=== PATIENT | male | born 1945 | race Caucasian/White ===

== ENCOUNTER 2023-03-06 13:56 | Inpatient (IN) ==
--- NOTE | 2023-03-06 14:05 | ED Triage Note ---
Date of Service March 06, 2023 History of Present Illness This patient was briefly evaluated while in triage. An abbreviated physical exam was performed. This patient is a 77-year-old Male who presents to the ED for evaluation of infections in both of his big toes. Patient states he can see the bone, the toe is black and "about falling off." He has been on two rounds of antibiotics with no improvement. Symptoms worsening over the past 2 weeks. He was seeing cardiology today about his heart and they apparently smelled his toes and told him to come in. Physical Exam VITALS: Vitals are noted on the nurse's note and reviewed by myself. GENERAL: This is a 77-year-old male, in no acute distress, well-developed well- nourished. SKIN: There is some redness of the anterior left howe. HEART: Regular rate and rhythm, no murmurs, gallops or rubs. LUNGS: Clear to auscultation throughout. MUSCULOSKELETAL: Postop shoes in place to bilateral feet. NEURO: Patient was alert and oriented to person place and time. Initial orders for labs and / or imaging were placed and patient was placed in the waiting area until a bed is available. Please see further documentation for the full ED course. MDM / Impression Impression Impression: Diabetic ulcer of left great toe, Osteomyelitis, Diabetic ulcer of right great toe, PAD (peripheral artery disease)
--- NOTE | 2023-03-06 14:51 | XRay Report ---
RIGHT FIRST TOE 3 VIEWS CLINICAL HISTORY: First toe infection. FINDINGS: 3 views of the right first toe are compared to study dated 02/20/2023. The skeletal structur es are osteopenic. No fracture is seen. Erosive change is seen along the medial head of the first pro ximal phalanx. This is suspicious for osteoarthritis. No additional foci of bony erosion are identifi ed. Mild degenerative change is noted in the first metatarsophalangeal and interphalangeal joints. So ft tissue edema is present in the first toe. There is atherosclerotic calcification of the regional a rteries. IMPRESSION: Erosive change in the medial head of the first proximal phalanx is highly suspicious for osteomyelitis. Correlate clinically. Electronically signed by: Abner Boyce M.D. 03/06/2023 2:50 PM
--- NOTE | 2023-03-06 14:53 | XRay Report ---
XR toe(s) LT min 2V CLINICAL HISTORY: Bilateral great toe infection. Assess for osteomyelitis. COMPARISON STUDY: Left first toe 02/16/2023. FINDINGS: Small foci of soft tissue gas identified within the left first toe. Destructive change seen within the lateral aspect of the distal phalanx of the left first toe. This is consistent with an os teomyelitis. No acute fracture or dislocation. No radiopaque foreign bodies. There is also cortical d estruction along the lateral aspect of the proximal phalanx of the first toe consistent with an addit ional site of osteomyelitis. IMPRESSION: 1. Areas of cortical destruction involving the proximal and distal phalanx of the left first toe cons istent with osteomyelitis. 2. Small foci of soft tissue gas seen throughout the majority of the left first toe. This is concerni ng for a gas-forming organism. ACT 112: Negative or not required by law. Electronically signed by: Juan Soto M.D. 03/06/2023 2:52 PM
[2023-03-06 17:04] LABS: Basophils # (auto) 0.05 K/uL (0-0.2); Basophils % (auto) 0.6 %; Eosinophils # (auto) 0.35 K/uL (0-0.50); Eosinophils % (auto) 3.9 %; Hematocrit (blood only) 37.5 % (42.0-52.0); Hemoglobin 12.3 g/dl (14.0-18.0); Immature Granulocytes # (auto) 0.03 K/uL (0.01-0.20); Immature Granulocytes % (auto) 0.3 %; Lymphocytes # (auto) 1.91 K/uL (1.2-3.4); Lymphocytes % (auto) 21.4 %; Mean Corpuscular Hemoglobin 28.3 pg (25.0-34.0); Mean Corpuscular Hgb Conc 32.8 g/dL (32.0-36.0); Mean Corpuscular Volume 86.4 fL (80.0-100.0); Mean Platelet Volume 9.2 fL (9.4-12.4); Monocytes # (auto) 0.67 K/uL (0.11-0.59); Monocytes % (auto) 7.5 %; Neutrophils # (auto) 5.92 K/uL (1.40-6.50); Neutrophils % (auto) 66.3 %; Platelet Count 268 K/uL (130-400); RDW Coefficient of Variation 15.4 % (11.5-14.5); RDW Standard Deviation 48.5 fL (36.4-46.3); Red Blood Count 4.34 M/uL (4.70-6.10); White Blood Count 8.93 K/ul (4.8-10.8)
--- NOTE | 2023-03-06 17:05 | Emergency Department Note ---
Impression & Plan Diabetic ulcer of left great toe, Osteomyelitis, Diabetic ulcer of right great toe, PAD (peripheral artery disease) ED Provider Note Provider: Jaswant Rios MD DATE OF SERVICE: 03/06/2023 CHIEF COMPLAINT: Toe infection HISTORY OF PRESENT ILLNESS: Patient is a 77-year-old gentleman history of type 2 diabetes, peripheral artery disease, long-term anticoagulation with warfarin presenting here today complaining of redness and foul smell to his left toes. Issues with the right toes as well. Has known issues with both toes and has recently seen podiatry and orthopedics. Undergoing outpatient evaluation for amputation due to concerns for osteomyelitis. Denies fevers. Denies significan t systemic weakness. Does have some pain up in the left leg. Patient's states that has outpatient vascular follow-up in several weeks as they wanted to optimize his PVD before surgery. Now with worsening redness swelling and foul odor to left foot. PAST MEDICAL HISTORY: As noted above MEDICATIONS: Reviewed home medication SOCIAL HISTORY: , chews tobacco PHYSICAL EXAM: GENERAL: alert and oriented in no acute distress on stretcher Head: normocephalic and atraumatic EYES: No injection, discharge or icterus. NECK: Trachea midline. ENT: Mucous membranes pink and moist. Poor dentition LUNGS: Airway patent. No retractions or tachypnea HEART: Regular rate and rhythm. No chest wall tenderness ABDOMEN: Soft and non-tender, without guarding or rebound. SKIN: Acyanotic, warm, dry EXTREMITIES: Patient with some mild swelling of the left lower extremity with erythema extending to the mid calf and slightly more proximal. No crepitus. Large wound with granulation tissue and green quality to the anterior left great toe. Slight approximate 2 cm ulceration on the anterior aspect of the right great toe but only into the epidermis. Only a faint left DP pulse appreciated. NEUROLOGICAL: No aphasia, facial droop, or slurred speech. Moves bilateral toes and feels gross sensation. Patient's laboratory studies and imaging reviewed. Differential includes Cellulitis, abscess, MRSA infection, DVT, necrotizing fasciitis, dermatitis, drug eruption, allergic reaction, as well as other pathologies. IMPRESSION/MEDICAL DECISION MAKING: Seen with resident physician. Reviewed recent medical record. Referred from PCPs office today requesting admission given worsening wounds. While the patient would benefit from peripheral vascular optimization, given the signs of worsening infection have concerns for this diabetic foot wound. No significant for cytosis and not septic at the CRP is elevated. X-rays again concerning today. Discussed with pharmacist. Antibiotics given. Does not appear to be necrotizing fasciitis based on clinical exam. Does have some cellulitis up in the left leg. Wound cultures obtained by the resident from both toes. Did clean both toes with iodine and then cleanse with water afterwards. [facility] these [facility] as an [facility] of these foot wounds. Likely require eventual surgical care. DIAGNOSIS: Diabetic foot wounds, left leg cellulitis, toe osteomyelitis DISPOSITION: Hospitalist will evaluate Patient was agreeable with this plan. Past Med/Surg History Medical History (Updated 03/06/23 @ 19:07 by Herminia Florentino PA-C) Anxiety Apical mural thrombus History of- on chronic Coumadin BPH (benign prostatic hyperplasia) CAD (coronary artery disease) S/p 3 vessel bypass 1997 Chronic systolic CHF (congestive heart failure) Severe LV dysfunction Depression Diabetes mellitus, type 2 Hyperlipidemia Hypertension ICD (implantable cardioverter-defibrillator) in place Biventricular ICD upgrade 08/2020 [employer]- h/o ICD discharge 10/2020 x 2 per 01/2021 ICD check Ischemic cardiomyopathy EF= 13% on 10/2020 stress test LBBB (left bundle branch block) Follows with cardio Myocardial Infarction x3--last 1997--follows with Dr. Bang Mcginnis On anticoagulant therapy warfarin daily Paroxysmal atrial flutter Sleep apnea cpap Surgical History History of appendectomy History of bilateral cataract extraction History of cardiac cath x1--1997 @ [facility] [place]--no stents, had CABG History of carpal tunnel surgery of right wrist History of colonoscopy History of implantable cardioverter-defibrillator (ICD) placement inserted 01/2007, replaced 02/2016, upgraded to BiV ICD on 09/19/20--[employer] History of surgery left leg vein removed for bypass History of tonsillectomy and adenoidectomy S/P triple vessel bypass @ [facility] [place] 1997 Family History Other No family history of adverse response to anesthesia Social History Smoking Status: Light tobacco smoker Tobacco Type: Smokeless Tobacco (Dip or Chew) Second Hand Exposure: Yes ( smokes); Hx Alcohol Use: Yes Alcohol type: beer Hx Substance Use: No Preferred Language: Citizen Of [place] Communication Ability: Effective Audit Analyst Required: No Beliefs That Will Affect Care: None Current Living Situation: Spouse Feels Safe at Home: Yes Assistive Devices: CPAP Allergies Allergies Allergy/AdvReac Type Severity Reaction Status Date / Time No Known Allergies Allergy Unknown Verified 03/06/23 17:52 Home Meds Home Medications Medication Instructions Recorded Confirmed atorvastatin 80 mg tablet 80 mg PO HS 09/17/20 03/06/23 finasteride 5 mg tablet 5 mg PO HS 09/17/20 03/06/23 furosemide 40 mg tablet (Lasix) 40 mg PO BID 09/17/20 03/06/23 insulin human U-100 NPH-regulr 20 unit subcut QAM 09/17/20 03/06/23 70-30 mix 100 unit/mL subcutaneous susp (Novolin 70/30 U-100 Insulin) lisinopril 2.5 mg tablet 2.5 mg PO QAM 09/17/20 03/06/23 metformin 1,000 mg tablet 1,000 mg PO BID 09/17/20 03/06/23 metoprolol succinate 50 mg 25 mg PO QAM 09/17/20 03/06/23 tablet,extended release 24 hr nitroglycerin 0.4 mg sublingual 0.4 mg sublingual UD PRN Angina 09/17/20 03/06/23 tablet omega-3 fatty acids 1,000 mg PO BID 09/17/20 03/06/23 sertraline 25 mg tablet 25 mg PO QAM 09/17/20 03/06/23 sertraline 50 mg tablet 50 mg PO QAM 09/17/20 03/06/23 vit C 250 mg-vit E 90 mg-zinc 40 1 tab PO BID 09/17/20 03/06/23 mg-copper 1 [id number] capsule (PreserVision AREDS-2) warfarin 10 mg tablet 10 mg PO DIRECTED 09/17/20 03/06/23 amiodarone 200 mg tablet 200 mg PO QAM 02/28/21 03/06/23 digoxin 125 mcg (0.125 mg) tablet 125 mcg PO PM 02/28/21 03/06/23 aspirin 81 mg chewable tablet 81 mg PO PM 03/06/23 03/06/23 empagliflozin 10 mg tablet 10 mg PO QAM 03/06/23 03/06/23 (Jardiance) semaglutide 1 mg/dose (4 mg/3 mL) 1 mg subcut WE 03/06/23 03/06/23 subcutaneous pen injector (Ozempic) terazosin 2 mg capsule 2 mg PO DAILY 03/06/23 03/06/23 tramadol 50 mg tablet 50 mg PO Q8 PRN Pain 03/06/23 03/06/23 trazodone 50 mg tablet 50 mg PO HS 03/06/23 03/06/23 Results & Data (ED) Vital Signs Vital Signs - 24 hr 03/06/23 13:58 03/06/23 17:14 Temperature 36.6 C 37.0 C Temperature Source Temporal Artery Scan Oral Pulse Rate 81 Pulse Rate [Right Finger] 71 Respiratory Rate 20 18 Respiratory Effort / Characteristics Non-Labored Spontaneous Non-Labored Spontaneous Respiratory Depth Normal Normal Respiratory Pattern Regular Regular Blood Pressure 117/63 Blood Pressure [Right Arm] 142/84 H Blood Pressure Mean 81 Blood Pressure Mean [Right Arm] 103 Blood Pressure Position Sitting Blood Pressure Position [Right Arm] Lying Pulse Oximetry 100 97 Oxygen Delivery Method Room Air Sepsis Recent Fever Within 48 Hours No Sepsis New/Unexplained Change in Mental Status N/A Sepsis Action Taken by Nursing No Action Required Laboratory Data 03/06/23 16:17 03/06/23 16:17 Lab Results 03/06/23 03/06/23 03/06/23 Range/Units 16:17 16:17 16:28 WBC 8.93 (4.8-10.8) K/ul RBC 4.34 L (4.70-6.10) M/uL Hgb 12.3 L (14.0-18.0) g/dl Hct 37.5 L (42.0-52.0) % MCV 86.4 (80.0-100.0) fL MCH 28.3 (25.0-34.0) pg MCHC 32.8 (32.0-36.0) g/dL RDW Std Deviation 48.5 H (36.4-46.3) fL RDW Coeff of Ade 15.4 H (11.5-14.5) % Plt Count 268 (130-400) K/uL MPV 9.2 L (9.4-12.4) fL Immature Gran % (Auto) 0.3 % Neut % (Auto) 66.3 % Lymph % (Auto) 21.4 % Ada % (Auto) 7.5 % Eos % (Auto) 3.9 % Baso % (Auto) 0.6 % Neut # (Auto) 5.92 (1.40-6.50) K/uL Lymph # (Auto) 1.91 (1.2-3.4) K/uL Ada # (Auto) 0.67 H (0.11-0.59) K/uL Eos # (Auto) 0.35 (0-0.50) K/uL Baso # (Auto) 0.05 (0-0.2) K/uL Immature Gran # (Auto) 0.03 (0.01-0.20) K/uL ESR (0-20) mm/hr PT (9.0-12.0) Seconds INR (0.9-1.1) Sodium 138 (136-145) mmol/L Potassium 3.6 (3.5-5.1) mmol/L Chloride 103 (98-107) mmol/L Carbon Dioxide 29 (21-32) mmol/L Anion Gap 6 (3-11) BUN 13 (6-23) mg/dl Creatinine 0.85 (0.6-1.4) mg/dl Est Cr Clr Drug Dosing 83.8 ml/min Est GFR ( Amer) 98.1 ml/min Est GFR (Non-Af Amer) 84.6 ml/min BUN/Creatinine Ratio 15.3 (10-20) Glucose 121 H (70-99(Fasting)) mg/dl Lactate 1.4 (0.4-2.0) mmol/L Calcium 9.0 (8.6-10.3) mg/dl Total Bilirubin 0.5 (0.2-1.0) mg/dl AST 16 (13-39) U/L ALT 16 (7-52) U/L Alkaline Phosphatase 83 (34-104) U/L C-Reactive Protein 10.03 H (0-0.5) mg/dl Total Protein 7.9 (6.0-8.3) gm/dl Albumin 3.6 (3.4-5.0) gm/dl Globulin 4.3 H (2.5-4.0) gm/dl Albumin/Globulin Ratio 0.8 L (0.9-2) Nasal Screen MRSA (PCR) (Negative) Digoxin (0.8-2.0) ng/ml SARS-CoV-2, RNA, NAAT (NEGATIVE) 03/06/23 03/06/23 03/06/23 Range/Units 17:15 17:15 17:18 WBC (4.8-10.8) K/ul RBC (4.70-6.10) M/uL Hgb (14.0-18.0) g/dl Hct (42.0-52.0) % MCV (80.0-100.0) fL MCH (25.0-34.0) pg MCHC (32.0-36.0) g/dL RDW Std Deviation (36.4-46.3) fL RDW Coeff of Ade (11.5-14.5) % Plt Count (130-400) K/uL MPV (9.4-12.4) fL Immature Gran % (Auto) % Neut % (Auto) % Lymph % (Auto) % Ada % (Auto) % Eos % (Auto) % Baso % (Auto) % Neut # (Auto) (1.40-6.50) K/uL Lymph # (Auto) (1.2-3.4) K/uL Ada # (Auto) (0.11-0.59) K/uL Eos # (Auto) (0-0.50) K/uL Baso # (Auto) (0-0.2) K/uL Immature Gran # (Auto) (0.01-0.20) K/uL ESR 100 H (0-20) mm/hr PT (9.0-12.0) Seconds INR (0.9-1.1) Sodium (136-145) mmol/L Potassium (3.5-5.1) mmol/L Chloride (98-107) mmol/L Carbon Dioxide (21-32) mmol/L Anion Gap (3-11) BUN (6-23) mg/dl Creatinine (0.6-1.4) mg/dl Est Cr Clr Drug Dosing ml/min Est GFR ( Amer) ml/min Est GFR (Non-Af Amer) ml/min BUN/Creatinine Ratio (10-20) Glucose (70-99(Fasting)) mg/dl Lactate (0.4-2.0) mmol/L Calcium (8.6-10.3) mg/dl Total Bilirubin (0.2-1.0) mg/dl AST (13-39) U/L ALT (7-52) U/L Alkaline Phosphatase (34-104) U/L C-Reactive Protein (0-0.5) mg/dl Total Protein (6.0-8.3) gm/dl Albumin (3.4-5.0) gm/dl Globulin (2.5-4.0) gm/dl Albumin/Globulin Ratio (0.9-2) Nasal Screen MRSA (PCR) Negative (Negative) Digoxin (0.8-2.0) ng/ml SARS-CoV-2, RNA, NAAT NEGATIVE (NEGATIVE) 03/06/23 03/06/23 Range/Units 17:18 17:18 WBC (4.8-10.8) K/ul RBC (4.70-6.10) M/uL Hgb (14.0-18.0) g/dl Hct (42.0-52.0) % MCV (80.0-100.0) fL MCH (25.0-34.0) pg MCHC (32.0-36.0) g/dL RDW Std Deviation (36.4-46.3) fL RDW Coeff of Ade (11.5-14.5) % Plt Count (130-400) K/uL MPV (9.4-12.4) fL Immature Gran % (Auto) % Neut % (Auto) % Lymph % (Auto) % Ada % (Auto) % Eos % (Auto) % Baso % (Auto) % Neut # (Auto) (1.40-6.50) K/uL Lymph # (Auto) (1.2-3.4) K/uL Ada # (Auto) (0.11-0.59) K/uL Eos # (Auto) (0-0.50) K/uL Baso # (Auto) (0-0.2) K/uL Immature Gran # (Auto) (0.01-0.20) K/uL ESR (0-20) mm/hr PT 54.5 H (9.0-12.0) Seconds INR 5.6 H* (0.9-1.1) Sodium (136-145) mmol/L Potassium (3.5-5.1) mmol/L Chloride (98-107) mmol/L Carbon Dioxide (21-32) mmol/L Anion Gap (3-11) BUN (6-23) mg/dl Creatinine (0.6-1.4) mg/dl Est Cr Clr Drug Dosing ml/min Est GFR ( Amer) ml/min Est GFR (Non-Af Amer) ml/min BUN/Creatinine Ratio (10-20) Glucose (70-99(Fasting)) mg/dl Lactate (0.4-2.0) mmol/L Calcium (8.6-10.3) mg/dl Total Bilirubin (0.2-1.0) mg/dl AST (13-39) U/L ALT (7-52) U/L Alkaline Phosphatase (34-104) U/L C-Reactive Protein (0-0.5) mg/dl Total Protein (6.0-8.3) gm/dl Albumin (3.4-5.0) gm/dl Globulin (2.5-4.0) gm/dl Albumin/Globulin Ratio (0.9-2) Nasal Screen MRSA (PCR) (Negative) Digoxin 0.6 L (0.8-2.0) ng/ml SARS-CoV-2, RNA, NAAT (NEGATIVE) Administered Medications Daptomycin 450 mg/ Syringe 9 mls @ 4.5 mls/min IV Q24H [facility]; Protocol Stop: 03/08/23 17:14 Last Admin: 03/06/23 17:48 Dose: 4.5 mls/min Documented By: HERMAN Discontinued Medications Piperacillin Sod/Tazobactam Sod (Zosyn) 4.5 gm in 120 mls @ 240 mls/hr IV NOW ONE Stop: 03/06/23 17:38 Last Infusion: 03/06/23 18:48 Dose: 0 mls/hr Documented By: Admin: 03/06/23 18:18 Dose: 240 mls/hr Documented By: HERMAN Clindamycin Phosphate (Cleocin/D5w) 900 mg in 50 mls @ 100 mls/hr IV NOW ONE Stop: 03/06/23 17:38 Last Infusion: 03/06/23 18:19 Dose: 0 mls/hr Documented By: Admin: 03/06/23 17:48 Dose: 100 mls/hr Documented By: HERMAN Imaging Data Radiologist's Impression: Toe X-Ray 03/06/23 14:05 RIGHT FIRST TOE 3 VIEWS CLINICAL HISTORY: First toe infection. FINDINGS: 3 views of the right first toe are compared to study dated 02/20/2023. The skeletal structures are osteopenic. No fracture is seen. Erosive change is seen along the medial head of the first proximal phalanx. This is suspicious for osteoarthritis. No additional foci of bony erosion are identified. Mild degenerative change is noted in the first metatarsophalangeal and interphalangeal joints. Soft tissue edema is present in the first toe. There is atherosclerotic calcification of the regional arteries. IMPRESSION: Erosive change in the medial head of the first proximal phalanx is highly suspicious for osteomyelitis. Correlate clinically. Electronically signed by: Abner Boyce M.D. 03/06/2023 2:50 PM Toe X-Ray 03/06/23 14:05 XR toe(s) LT min 2V CLINICAL HISTORY: Bilateral great toe infection. Assess for osteomyelitis. COMPARISON STUDY: Left first toe 02/16/2023. FINDINGS: Small foci of soft tissue gas identified within the left first toe. Destructive change seen within the lateral aspect of the distal phalanx of the left first toe. This is consistent with an osteomyelitis. No acute fracture or dislocation. No radiopaque foreign bodies. There is also cortical destruction along the lateral aspect of the proximal phalanx of the first toe consistent with an additional site of osteomyelitis. IMPRESSION: 1. Areas of cortical destruction involving the proximal and distal phalanx of the left first toe consistent with osteomyelitis. 2. Small foci of soft tissue gas seen throughout the majority of the left first toe. This is concerning for a gas-forming organism. ACT 112: Negative or not required by law. Electronically signed by: Juan Soto M.D. 03/06/2023 2:52 PM Discharge Plan Visit Data Chief Complaint: Toe Injury/Pain Stated Complaint: TOES ARE ROTTING ED Provider: Jaswant Rios ED Midlevel Provider: Adrienne Russ Discharge Problem: Diabetic ulcer of left great toe, Osteomyelitis, Diabetic ulcer of right great toe, PAD (peripheral artery disease) Patient Disposition: Being Evaluated by Hospitalist Discharge Instructions Interventions: ED Discharge Assessment Last Done: 03/06/23 18:35
[2023-03-06] MEDS ORDERED: PIPERACILLIN/TAZOBACTAM 4.5 GM/120 ML BAG IV ONE (17:09)
[2023-03-06] MEDS ORDERED: CLINDAMYCIN/D5W 900 MG/50 ML BAG IV ONE (17:09)
[2023-03-06] MEDS ORDERED: DAPTOmycin 450 MG in SYRINGE 0 ML IV SCH (17:15)
[2023-03-06 17:22] LABS: Albumin Globulin Ratio 0.8 (0.9-2); Albumin Level 3.6 gm/dl (3.4-5.0); BUN Creatinine Ratio 15.3 (10-20); Bilirubin,Total 0.5 mg/dl (0.2-1.0); C Reactive Protein 10.03 mg/dl (0-0.5); Creatinine Clr Calc Pharmacy 83.8 ml/min; Est GFR (African American) 98.1 ml/min; Est GFR (Non-African American) 84.6 ml/min; Globulin 4.3 gm/dl (2.5-4.0); Potassium 3.6 mmol/L (3.5-5.1); Total Protein 7.9 gm/dl (6.0-8.3)
--- NOTE | 2023-03-06 17:59 | History & Physical Report ---
Date of Service March 06, 2023 Assessment & Plan (1) Osteomyelitis: (2) Cellulitis of leg, left: Plan: Patient is 77 y/o M with PMH ischemic cardiomyopathy, a-flutter, chronic systolic and diastolic CHF, DM II, HTN, LBBB, BPH, ADOLPH and others listed below presented to ER with complaint of toe infection. Outpatient arterial duplex 02/23/23: RIGHT LEG: No hemodynamically significant stenosis identified in the distal external iliac, common femoral, proximal anastomosis, superficial femoral, tibioperoneal, posterior tibial, peroneal and anterior tibial arteries. >75% stenosis of distal popliteal artery. Right YEFRI is 0.98. Possible overestimated due to heavy calcified tibial arteries LEFT LEG: No hemodynamically significant stenosis identified in the distal external iliac, common femoral, proximal anastomosis, superficial femoral, tibioperoneal, posterior tibial, peroneal and anterior tibial arteries. Focal occlusion of the mid anterior tibial artery with distal reconstitution Left YEFRI is 0.95. Possibly overestimated due to heavily calcified tibial arteries In ER vitals stable. No leukocytosis. ESR and CRP elevated Left toe x-ray: Areas of cortical destruction involving the proximal and distal phalanx of the left first toe consistent with osteomyelitis. Small foci of soft tissue gas seen throughout the majority of the left first toe. This is concerning for a gas-forming organism. Right toe x-ray: Erosive change in the medial head of the first proximal phalanx is highly suspicious for osteomyelitis. Correlate clinically. In ER given Zosyn, daptomycin, clindamycin Zosyn, vancomycin Ortho consult. Patient recently saw Dr Deal Vascular consult If plan for surgery consider cardiology consult with patient's extensive cardiac history CBC, BMP in am (3) Ischemic cardiomyopathy: Plan: S/P ICD 06/2021 echo: EF: 20-24% Continue aspirin, atorvastatin, metoprolol succinate, Lasix (4) Paroxysmal atrial flutter: Plan: Anticoagulated on warfarin INR: 5.6. No signs of active bleeding Hold warfarin Continue amiodarone, digoxin, metoprolol succinate (5) Diabetes mellitus, type 2: Plan: A1c: 8.3 on 12/22/2022 Hold oral meds and insulin Basal bolus insulin per protocol (6) Hypertension: Plan: Continue lisinopril, metoprolol succinate (7) BPH (benign prostatic hyperplasia): Plan: Continue finasteride, terazosin (8) Sleep apnea: Plan: CPAP at bedtime DVT Prophylaxis INR currently supratherapeutic. Monitor INR DNR/DNI as per discussion with pt Follows with Dr Beth Mcginnis for routine care Pt was seen and care coordinated with Dr Hogan. See addendum I spent a total of 80 minutes reviewing notes, outpatient records, labs, medication, coordinating, documenting and providing care for this patient excluding time spent in the performance of separately billed services. History of Present Illness Chief Complaint: Toe infection Primary Care Provider: Beth Mcginnis DO Patient is 77 y/o M with PMH ischemic cardiomyopathy, a-flutter, chronic systolic and diastolic CHF, DM II, HTN, LBBB, BPH, ADOLPH and others listed below presented to ER with complaint of toe infection. History obtained from patient, patient's and chart review. Patient and somewhat poor historians reports "toe infection" over a year ago and had seen wound clinic with some improvement. Patient and report 3 months ago had worsening with "skin just coming off" left great toe. States area has been open and has been having drainage, black in coloration. Saw his PCP. Was prescribed Bactrim 02/05/2023. Followed with wound clinic had debridement and was referred to Ortho. Prescribed doxycycline 02/20/2023. Patient states finished antibiotics. Patient states Dr Deal and had US BLE. He states is referred to vascular surgery, Dr. Chinchilla however appointment is not until March. Patient thinks they talked about amputation. States recently with surrounding redness which has spread up the leg. He is having associated pain. Denies any noted fever. Patient states he is always cold. Denies nausea, vomiting. He reports chronic loose stools on metformin, denies any increased stool frequency. Denies diaphoresis, HAQUE, dizziness, syncope, vision changes, neck pain, CP, SOB, orthopnea, palpitations, cough, sore throat rhinorrhea, abdominal pain, paresthesias, weakness, extremity weakness, other extremity edema, rashes, urinary symptoms. Allergies Allergy/AdvReac Type Severity Reaction Status Date / Time No Known Allergies Allergy Unknown Verified 03/06/23 17:52 Home Medications Medication Instructions Recorded Confirmed Type atorvastatin 80 mg tablet 80 mg PO HS 09/17/20 03/06/23 History finasteride 5 mg tablet 5 mg PO HS 09/17/20 03/06/23 History furosemide 40 mg tablet (Lasix) 40 mg PO BID 09/17/20 03/06/23 History insulin human U-100 NPH-regulr 20 unit subcut QAM 09/17/20 03/06/23 History 70-30 mix 100 unit/mL subcutaneous susp (Novolin 70/30 U-100 Insulin) lisinopril 2.5 mg tablet 2.5 mg PO QAM 09/17/20 03/06/23 History metformin 1,000 mg tablet 1,000 mg PO BID 09/17/20 03/06/23 History metoprolol succinate 50 mg 25 mg PO QAM 09/17/20 03/06/23 History tablet,extended release 24 hr nitroglycerin 0.4 mg sublingual 0.4 mg sublingual UD PRN Angina 09/17/20 03/06/23 History tablet omega-3 fatty acids 1,000 mg PO BID 09/17/20 03/06/23 History sertraline 25 mg tablet 25 mg PO QAM 09/17/20 03/06/23 History sertraline 50 mg tablet 50 mg PO QAM 09/17/20 03/06/23 History vit C 250 mg-vit E 90 mg-zinc 40 1 tab PO BID 09/17/20 03/06/23 History mg-copper 1 gx-micent-ghpoah capsule (PreserVision AREDS-2) warfarin 10 mg tablet 10 mg PO DIRECTED 09/17/20 03/06/23 History amiodarone 200 mg tablet 200 mg PO QAM 02/28/21 03/06/23 History digoxin 125 mcg (0.125 mg) tablet 125 mcg PO PM 02/28/21 03/06/23 History aspirin 81 mg chewable tablet 81 mg PO PM 03/06/23 03/06/23 History empagliflozin 10 mg tablet 10 mg PO QAM 03/06/23 03/06/23 History (Jardiance) semaglutide 1 mg/dose (4 mg/3 mL) 1 mg subcut WE 03/06/23 03/06/23 History subcutaneous pen injector (Ozempic) terazosin 2 mg capsule 2 mg PO DAILY 03/06/23 03/06/23 History tramadol 50 mg tablet 50 mg PO Q8 PRN Pain 03/06/23 03/06/23 History trazodone 50 mg tablet 50 mg PO HS 03/06/23 03/06/23 History Past Med/Surg History Medical History (Updated 03/06/23 @ 19:07 by Herminia Florentino PA-C) Anxiety Apical mural thrombus History of- on chronic Coumadin BPH (benign prostatic hyperplasia) CAD (coronary artery disease) S/p 3 vessel bypass 1997 Chronic systolic CHF (congestive heart failure) Severe LV dysfunction Depression Diabetes mellitus, type 2 Hyperlipidemia Hypertension ICD (implantable cardioverter-defibrillator) in place Biventricular ICD upgrade 08/2020 [employer]- h/o ICD discharge 10/2020 x 2 per 01/2021 ICD check Ischemic cardiomyopathy EF= 13% on 10/2020 stress test LBBB (left bundle branch block) Follows with cardio Myocardial Infarction x3--last 1997--follows with Dr. Bang Mcginnis On anticoagulant therapy warfarin daily Paroxysmal atrial flutter Sleep apnea cpap Surgical History History of appendectomy History of bilateral cataract extraction History of cardiac [place] [facility] [place], had [place]G History of carpal tunnel surgery of right wrist History of colonoscopy History of implantable cardioverter-defibrillator (ICD) placement inserted 01/2007, replaced 02/2016, upgraded to BiV ICD on 09/19/20--[employer] History of surgery left leg vein removed for bypass History of tonsillectomy and adenoidectomy S/[place] [facility] [place] Family History Other No family history of adverse response to anesthesia Social History Smoking Status: Former smoker Tobacco Type: Smokeless Tobacco (Dip or Chew) Second Hand Exposure: No; Do You Dip or Chew Tobacco: Yes; Tobacco Cessation Education Requested by Patient: No Hx Alcohol Use: No Hx Substance Use: No Preferred Language: Northern Irish Communication Ability: Effective Engraver Letter Required: No Beliefs That Will Affect Care: None Current Living Situation: Spouse Other Information That Helps Us Care for You: No Feels Safe at Home: Yes Safety Concerns: Feels Safe At This Time Assistive Devices: Cane Review of Systems Review of Systems: All systems reviewed & are unremarkable except as noted in HPI & below Physical Exam Physical Exam: General: chronic ill appearing, no distress, WDWN Head: normocephalic, atraumatic Eyes: conjunctiva non-injected, anicteric ENT: normal inspection external ears, nose, mucous membranes moist Neck: supple, trachea midline Lungs: clear, no respiratory distress, no wheezing/rhonchi/rales CV: RRR, no murmur, no pretibial edema Abd: normal BS, soft, non-tender Ext: no cyanosis, no calf tenderness Neuro: A&O x 3, no focal deficits noted, normal affect Skin: warm, dry Results & Data Results & Data Vital Signs (Past 12 Hours) Vital Signs Temp Pulse Pulse Resp BP BP Pulse Ox 03/06/23 17:14 37.0 C 71 18 142/84 H 97 03/06/23 13:58 36.6 C 81 20 117/63 100 O2 Del Method 03/06/23 17:14 Room Air 03/06/23 13:58 Laboratory Results Short CBC 03/06/23 Range/Units 16:17 WBC 8.93 (4.8-10.8) K/ul Hgb 12.3 L (14.0-18.0) g/dl Hct 37.5 L (42.0-52.0) % Plt Count 268 (130-400) K/uL BMP 03/06/23 16:17 Sodium 138 Potassium 3.6 Chloride 103 Carbon Dioxide 29 BUN 13 Creatinine 0.85 Glucose 121 H Calcium 9.0 Liver Function 03/06/23 Range/Units 16:17 Total Bilirubin 0.5 (0.2-1.0) mg/dl AST 16 (13-39) U/L ALT 16 (7-52) U/L Alkaline Phosphatase 83 (34-104) U/L Albumin 3.6 (3.4-5.0) gm/dl Diagnostic Findings Toe X-Ray 03/06/23 14:05 RIGHT FIRST TOE 3 VIEWS CLINICAL HISTORY: First toe infection. FINDINGS: 3 views of the right first toe are compared to study dated 02/20/2023. The skeletal structures are osteopenic. No fracture is seen. Erosive change is seen along the medial head of the first proximal phalanx. This is suspicious for osteoarthritis. No additional foci of bony erosion are identified. Mild degenerative change is noted in the first metatarsophalangeal and interphalangeal joints. Soft tissue edema is present in the first toe. There is atherosclerotic calcification of the regional arteries. IMPRESSION: Erosive change in the medial head of the first proximal phalanx is highly suspicious for osteomyelitis. Correlate clinically. Electronically signed by: Abner Boyce M.D. 03/06/2023 2:50 PM Toe X-Ray 03/06/23 14:05 XR toe(s) LT min 2V CLINICAL HISTORY: Bilateral great toe infection. Assess for osteomyelitis. COMPARISON STUDY: Left first toe 02/16/2023. FINDINGS: Small foci of soft tissue gas identified within the left first toe. Destructive change seen within the lateral aspect of the distal phalanx of the left first toe. This is consistent with an osteomyelitis. No acute fracture or dislocation. No radiopaque foreign bodies. There is also cortical destruction along the lateral aspect of the proximal phalanx of the first toe consistent with an additional site of osteomyelitis. IMPRESSION: 1. Areas of cortical destruction involving the proximal and distal phalanx of the left first toe consistent with osteomyelitis. 2. Small foci of soft tissue gas seen throughout the majority of the left first toe. This is concerning for a gas-forming organism. ACT 112: Negative or not required by law. Electronically signed by: Juan Soto M.D. 03/06/2023 2:52 PM Supervising Physician Co-Signing Physician Notes Patient seen and examined independently. Chart reviewed. Case discussed with KRYSTINA. Agree with above Vancomycin, zosyn for diabetic foot infection of chronic non healing wound with ascending cellulitis. Ortho and vascular surgery consulted for surgical management.
[2023-03-06 18:12] LABS: Prothrombin Time 54.5 Seconds (9.0-12.0)
[2023-03-06 18:24] LABS: INR 5.6 (0.9-1.1)
[2023-03-06] MEDS ORDERED: ONDANSETRON INJ 2 MG/ML 2 ML VIAL IV PRN (21:40)
[2023-03-06] MEDS ORDERED: CARBOHYDRATES FOR HYPOGLYCEMIA PO PRN (21:40)
[2023-03-06] MEDS ORDERED: GLUCAGON FOR INJ 1 MG VIAL SQ PRN (21:40)
[2023-03-06] MEDS ORDERED: GLUCOSE 40% GEL 15 GM TUBE PO PRN (21:40)
[2023-03-06] MEDS ORDERED: POLYETHYLENE (MIRALAX) 17 GM PACK PO PRN (21:40)
[2023-03-06] MEDS ORDERED: DEXTROSE 50% 50 ML SYRINGE IV PRN (21:40)
[2023-03-06] MEDS ORDERED: ACETAMINOPHEN 325 MG TAB PO PRN (21:40)
[2023-03-06] MEDS ORDERED: GLUCOSE 10 TAB/TUBE PO PRN (21:40)
[2023-03-06] MEDS ORDERED: VANCOMYCIN CONSULT ACTIVE PRN (21:40)
[2023-03-06] MEDS ORDERED: VANCOMYCIN HCL 1,750 MG in SODIUM CHLORIDE 0.9% 500 ML IV ONE (23:00)
[2023-03-06] MEDS: DIGOXIN 0.125 MG TAB PO SCH (23:25)
[2023-03-06] MEDS: traZODone HCL 50 MG TAB PO SCH (23:26)
[2023-03-06] MEDS: PIPERACILLIN/TAZOBACTAM 4.5 GM in DEXTROSE 5% 100 ML IV SCH (23:26)
[2023-03-06] MEDS: FUROSEMIDE 40 MG TAB PO SCH (23:26)
[2023-03-06] MEDS: ATORVASTATIN 40 MG TAB PO SCH (23:26)
[2023-03-06] MEDS: ASPIRIN 81 MG CHEW PO SCH (23:27)
[2023-03-06] MEDS: FINASTERIDE 5 MG TAB PO SCH (23:27)
[2023-03-07] MEDS: INSULIN ASPART PER UNIT CHARGE SC SCH ×5 (00:51→21:33)
[2023-03-07] MEDS: LANTUS PER UNIT CHARGE SQ SCH ×3 (00:51→21:34)
[2023-03-07] MEDS: VANCOMYCIN HCL 1,000 MG in SODIUM CHLORIDE 0.9% 250 ML IV SCH ×2 (05:43→17:56)
[2023-03-07] MEDS: AMIODARONE 200 MG TAB PO SCH (07:37)
[2023-03-07] MEDS: PIPERACILLIN/TAZOBACTAM 4.5 GM in DEXTROSE 5% 100 ML IV SCH ×3 (07:37→23:32)
[2023-03-07] MEDS: lisinopril 2.5 MG TAB PO SCH (07:40)
[2023-03-07] MEDS: METOPROLOL SUCC 25MG EXT REL TAB PO SCH (07:41)
[2023-03-07] MEDS: TERAZOSIN HCL 1 MG CAP PO SCH (07:41)
[2023-03-07] MEDS: SERTRALINE HCL 50 MG TABLET PO SCH (07:41)
[2023-03-07 07:54] LABS: Hematocrit (blood only) 34.8 % (42.0-52.0); Hemoglobin 11.3 g/dl (14.0-18.0); Mean Corpuscular Hemoglobin 28.3 pg (25.0-34.0); Mean Corpuscular Hgb Conc 32.5 g/dL (32.0-36.0); Platelet Count 255 K/uL (130-400); RDW Standard Deviation 48.5 fL (36.4-46.3); White Blood Count 7.12 K/ul (4.8-10.8)
[2023-03-07 08:13] LABS: BUN Creatinine Ratio 11.8 (10-20); Calcium 8.3 mg/dl (8.6-10.3); Creatinine Clr Calc Pharmacy 81.8 ml/min; Est GFR (African American) 98.1 ml/min; Est GFR (Non-African American) 84.6 ml/min; Potassium 3.7 mmol/L (3.5-5.1)
[2023-03-07 08:39] LABS: INR 6.3 (0.9-1.1)
[2023-03-07] MEDS ORDERED: SERTRALINE HCL 50 MG TABLET PO SCH (09:00)
[2023-03-07] MEDS: FUROSEMIDE 40 MG TAB PO SCH ×2 (10:32→15:55)
[2023-03-07 11:17] LABS: Estimated Average Glucose 197 mg/dl; Hemoglobin A1C 8.5 % (4.5-5.6)
--- NOTE | 2023-03-07 13:48 | Pharmacy Report ---
Pharmacy PK ABX Note - Date of Service March 07, 2023 - Assessment and Plan Assessment 77 year old M receiving vancomycin/zosyn for treatment of osteo/cellulitis. Pertinent microbiologic data includes: MRSA nasal culture negative, recent left toe cultures with Alcaligenes faecalis and MSSA. Current right toe culture- no growth, left toe pin point growth, blood cultures pending. Plan Vancomycin * Loading dose: 1750 mg IV x 1 * Maintenance dose: 1000 mg IV every 12 hours * Regimen is predicted to achieve target AUC/LUCERO of 400-600 mg/L.hr * Random level ordered 03/08 @ 1200 Pharmacy will continue to follow and will adjust dose/frequency as necessary. Thank you. Pharmacy has transitioned to AUC monitoring for vancomycin. AUC/LUCERO is the preferred PK/PD target and is associated with decreased risk of nephrotoxicity compared to traditional trough targets.
--- NOTE | 2023-03-07 15:38 | Hospitalist Progress Note ---
Date of Service March 07, 2023 Assessment & Plan (1) Osteomyelitis: Plan: Increasing pain left foot, ulceration and swelling with redness and tenderness involving the left lower extremity No sepsis POA In ER vitals stable. No leukocytosis. ESR and CRP elevated Noted to have osteomyelitis involving the left great toe as below In ER given Zosyn, daptomycin, clindamycin Now continuing with intravenous Zosyn and vancomycin Awaiting orthopedic input and recommendation Imaging studies as below: Left toe x-ray: Areas of cortical destruction involving the proximal and distal phalanx of the left first toe consistent with osteomyelitis. Small foci of soft tissue gas seen throughout the majority of the left first toe. This is concerning for a gas-forming organism. Right toe x-ray: Erosive change in the medial head of the first proximal phalanx is highly suspicious for osteomyelitis. Correlate clinically. (2) Cellulitis of leg, left: Plan: Patient is 77 y/o M with PMH ischemic cardiomyopathy, a-flutter, chronic systolic and diastolic CHF, DM II, HTN, LBBB, BPH, ADOLPH and others listed below presented to ER with complaint of toe infection. Has cellulitis of the left leg seems to be spreading from the left big toe Redness and swelling has been improving since admission Outpatient arterial duplex 02/23/23: RIGHT LEG: No hemodynamically significant stenosis identified in the distal external iliac, common femoral, proximal anastomosis, superficial femoral, tibioperoneal, posterior tibial, peroneal and anterior tibial arteries. >75% stenosis of distal popliteal artery. Right YEFRI is 0.98. Possible overestimated due to heavy calcified tibial arteries LEFT LEG: No hemodynamically significant stenosis identified in the distal external iliac, common femoral, proximal anastomosis, superficial femoral, tibioperoneal, posterior tibial, peroneal and anterior tibial arteries. Focal occlusion of the mid anterior tibial artery with distal reconstitution Left YEFRI is 0.95. Possibly overestimated due to heavily calcified tibial arteries Vascular surgery is consulted but not available until next few weeks Will consult Dr. Rodriges on Thursday (3) Ischemic cardiomyopathy: Plan: S/P ICD 06/2021 echo: EF: 20-24% Continue aspirin, atorvastatin, metoprolol succinate, Lasix No acute cardiac symptoms Likely to need cardiac evaluation prior to surgery if undertaken (4) Paroxysmal atrial flutter: Plan: Anticoagulated on warfarin INR: 5.6. No signs of active bleeding Hold warfarin Continue amiodarone, digoxin, metoprolol succinate (5) Diabetes mellitus, type 2: Plan: A1c: 8.3 on 12/22/2022 Hold oral meds and insulin Basal bolus insulin per protocol (6) Hypertension: Plan: Continue lisinopril, metoprolol succinate (7) BPH (benign prostatic hyperplasia): Plan: Continue finasteride, terazosin (8) Sleep apnea: Plan: CPAP at bedtime DVT Prophylaxis INR currently supratherapeutic. Monitor INR INR is elevated-hold Coumadin for now DNR/DNI as per discussion with pt Follows with Dr Beth Mcginnis for routine care Admission and Anticipated Discharge Date Admission Date: March 06, 2023 Subjective 03/07/2023 The patient was seen and examined in medical telemetry unit He was admitted with worsening wound involving the left big toe with adjoining edema and redness of the left lower extremity and also chronic ulceration right big toe No fever and or chills but did have pain Has been feeling reasonably better this morning Review of Systems Musculoskeletal: Pain in both big toes more on the left than the right with swelling and redness involving the right lower extremity Physical Exam Physical Exam: Lying in bed comfortably Constitutional: well developed, well nourished, + ill appearing and + obese Eyes: PERRL, conjunctivae normal, anicteric sclerae ENMT: external ear and nose normal, oropharynx normal Neck: trachea midline, no thyromegaly Respiratory: no respiratory distress Auscultation: lungs clear to auscultation bilaterally Cardiovascular: Rate/Rhythm: regular rate and regular rhythm; not tachycardic Heart Sounds: normal S1 and normal S2; no murmur Extremities: + edema (Left leg edema with redness and tenderness) Gastrointestinal (Abdomen): Inspection/Auscultation: normal bowel sounds; abdomen not distended Percussion/Palpation: abdomen soft; abdomen nontender Musculoskeletal: Left leg swelling, red and tender to palpate with open wound left big toe. Right toe has ulceration to on the dorsum Neurologic: moves all extremities; no focal motor deficits Lymphatic: no cervical or axillary lymphadenopathy Results & Data Results & Data Vital Signs (Past 12 Hours) Vital Signs Temp Pulse Resp BP Pulse Ox O2 Del Method 03/07/23 14:50 36.6 C 70 18 109/61 95 Room Air 03/07/23 11:10 36.5 C 69 18 114/68 97 Room Air 03/07/23 07:57 36.6 C 18 119/67 97 Room Air 03/07/23 07:40 36.6 C 81 122/69 95 Room Air Laboratory Results Short CBC 03/06/23 03/07/23 Range/Units 16:17 06:25 WBC 8.93 7.12 (4.8-10.8) K/ul Hgb 12.3 L 11.3 L (14.0-18.0) g/dl Hct 37.5 L 34.8 L (42.0-52.0) % Plt Count 268 255 (130-400) K/uL BMP 03/06/23 03/07/23 16:17 06:25 Sodium 138 142 Potassium 3.6 3.7 Chloride 103 106 Carbon Dioxide 29 29 BUN 13 10 Creatinine 0.85 0.85 Glucose 121 H 134 H Calcium 9.0 8.3 L Liver Function 03/06/23 Range/Units 16:17 Total Bilirubin 0.5 (0.2-1.0) mg/dl AST 16 (13-39) U/L ALT 16 (7-52) U/L Alkaline Phosphatase 83 (34-104) U/L Albumin 3.6 (3.4-5.0) gm/dl Medications Administered Current Inpatient Medications Acetaminophen (Acetaminophen 325 Mg Tab) 650 mg PO Q4H PRN PRN Reason: Pain or Fever Stop: 04/05/23 21:39 Amiodarone HCl (Amiodarone 200 Mg Tab) 200 mg PO QAM [facility] Stop: 04/06/23 08:59 Last Admin: 03/07/23 07:37 Dose: 200 mg Aspirin (Aspirin 81 Mg Chew) 81 mg PO PM [facility] Stop: 04/05/23 21:39 Last Admin: 03/06/23 23:27 Dose: 81 mg Atorvastatin Calcium (Atorvastatin 40 Mg Tab) 80 mg PO HS [facility] Stop: 04/05/23 21:39 Last Admin: 03/06/23 23:26 Dose: 80 mg Dextrose (Dextrose 50% 50 Ml Syringe) 25 - 50 ml IV UD PRN; Protocol PRN Reason: Hypoglycemia Protocol Stop: 04/05/23 21:39 Digoxin (Digoxin 0.125 Mg Tab) 0.125 mg PO PM [facility] Stop: 04/05/23 21:39 Last Admin: 03/06/23 23:25 Dose: 0.125 mg Finasteride (Finasteride 5 Mg Tab) 5 mg PO HS [facility] Stop: 04/05/23 21:39 Last Admin: 03/06/23 23:27 Dose: 5 mg Furosemide (Furosemide 40 Mg Tab) 40 mg PO [id number] [facility] Stop: 04/05/23 21:39 Last Admin: 03/07/23 10:32 Dose: 40 mg Glucagon (Glucagon For Inj 1 Mg Vial) 1 mg SQ UD PRN; Protocol PRN Reason: Hypoglycemia Protocol Stop: 04/05/23 21:39 Glucose (Glucose 10 Tab/Tube) 4 - 8 tab PO UD PRN; Protocol PRN Reason: Hypoglycemia Treatment Stop: 04/05/23 21:39 Glucose (Glucose 40% Gel 15 Gm Tube) 15 - 30 gm PO UD PRN; Protocol PRN Reason: Hypoglycemia Protocol Stop: 04/05/23 21:39 Piperacillin Sod/Tazobactam (Sod 4.5 gm/ Dextrose) 120 mls @ 30 mls/hr IV Q8H [facility]; Protocol Stop: 04/18/23 00:00 Last Infusion: 03/07/23 12:00 Dose: Infused Vancomycin HCl 1,000 mg/ (Sodium Chloride) 270 mls @ 200 mls/hr IV Q12H [facility]; Protocol Stop: 04/18/23 05:59 Last Infusion: 03/07/23 07:22 Dose: Infused Insulin Aspart (Insulin Aspart Per Unit Charge) 0 units SC ACHS [facility] Stop: 04/05/23 21:39 Last Admin: 03/07/23 12:34 Dose: 7 units Insulin Glargine (Lantus Per Unit Charge) 0 units SQ BID [facility] Stop: 04/05/23 21:39 Last Admin: 03/07/23 08:28 Dose: 7 units Lisinopril (Lisinopril 2.5 Mg Tab) 2.5 mg PO QAM [facility] Stop: 04/06/23 08:59 Last Admin: 03/07/23 07:40 Dose: 2.5 mg Metoprolol Succinate (Metoprolol Succ 25mg Ext Rel Tab) 25 mg PO QAM [facility] Stop: 04/06/23 08:59 Last Admin: 03/07/23 07:41 Dose: 25 mg Miscellaneous (Carbohydrates For Hypoglycemia ) 15 - 30 gm PO UD PRN PRN Reason: Hypoglycemia Protocol Stop: 04/05/23 21:39 Miscellaneous Information (Vancomycin Consult Active) 1 each N/A UD PRN PRN Reason: Consult Stop: 04/05/23 21:39 Ondansetron HCl (Ondansetron Inj 2 Mg/Ml 2 Ml Vial) 4 mg IV Q6H PRN PRN Reason: Nausea Stop: 04/05/23 21:39 Polyethylene Glycol (Polyethylene (Miralax) 17 Gm Pack) 17 gm PO DAILY PRN PRN Reason: Constipation Stop: 04/05/23 21:39 Sertraline HCl (Sertraline Hcl 50 Mg Tablet) 75 mg PO QAM [facility] Stop: 04/06/23 08:59 Last Admin: 03/07/23 07:41 Dose: 75 mg Terazosin HCl (Terazosin Hcl 1 Mg Cap) 2 mg PO DAILY [facility] Stop: 04/06/23 08:59 Last Admin: 03/07/23 07:41 Dose: 2 mg Tramadol HCl (Tramadol Hcl 50 Mg Tablet) 50 mg PO Q8 PRN PRN Reason: Pain Stop: 04/05/23 21:39 Trazodone HCl (Trazodone Hcl 50 Mg Tab) 50 mg PO HS [facility] Stop: 04/05/23 21:39 Last Admin: 03/06/23 23:26 Dose: 50 mg
--- NOTE | 2023-03-07 18:38 | Progress Notes ---
DATE OF SERVICE:. 03/07/2023 The patient is known to me from outpatient treatment. Left big toe osteomyelitis with exposed bone. Chronic right big toe wound. The plan was to amputate both big toes. He first had a vascular evalu ation with Dr. Chinchilla which showed no urgent need for vascular intervention. We then were trying to get him off of his Coumadin to get him into the hospital. The last I heard he needed something done with his pacemaker. He reports that turned his pacemaker down, so he is good until May. There is an open wound of both big toes. Exposed bone on the left. Evidence of resolving cellulitis of the legs. Plan at this time will be to hold his Coumadin. Currently, INR is 6.3. When INR is 1 .5 or less, we can proceed with bilateral big toe amputations. Continue antibiotics. That is provid ed that the remainder of his health is satisfactory. That his pacemaker is working appropriately and there are no other medical contraindications or optimization needed for surgical intervention. Job ID: [id number]
[2023-03-07] MEDS: traZODone HCL 50 MG TAB PO SCH (21:17)
[2023-03-07] MEDS: ASPIRIN 81 MG CHEW PO SCH (21:18)
[2023-03-07] MEDS: DIGOXIN 0.125 MG TAB PO SCH (21:19)
[2023-03-07] MEDS: FINASTERIDE 5 MG TAB PO SCH (21:20)
[2023-03-07] MEDS: ATORVASTATIN 40 MG TAB PO SCH (21:20)
[2023-03-08] MEDS: VANCOMYCIN HCL 1,000 MG in SODIUM CHLORIDE 0.9% 250 ML IV SCH ×2 (05:36→17:50)
[2023-03-08 07:29] LABS: Basophils # (auto) 0.06 K/uL (0-0.2); Basophils % (auto) 0.8 %; Eosinophils # (auto) 0.46 K/uL (0-0.50); Eosinophils % (auto) 6.3 %; Hematocrit (blood only) 34.8 % (42.0-52.0); Hemoglobin 11.5 g/dl (14.0-18.0); Immature Granulocytes # (auto) 0.01 K/uL (0.01-0.20); Immature Granulocytes % (auto) 0.1 %; Lymphocytes # (auto) 1.57 K/uL (1.2-3.4); Lymphocytes % (auto) 21.3 %; Mean Corpuscular Hemoglobin 28.1 pg (25.0-34.0); Mean Corpuscular Volume 85.1 fL (80.0-100.0); Mean Platelet Volume 8.9 fL (9.4-12.4); Monocytes # (auto) 0.53 K/uL (0.11-0.59); Monocytes % (auto) 7.2 %; Neutrophils # (auto) 4.73 K/uL (1.40-6.50); Neutrophils % (auto) 64.3 %; Platelet Count 255 K/uL (130-400); RDW Coefficient of Variation 15.4 % (11.5-14.5); RDW Standard Deviation 47.6 fL (36.4-46.3); Red Blood Count 4.09 M/uL (4.70-6.10); White Blood Count 7.36 K/ul (4.8-10.8)
[2023-03-08 07:48] LABS: BUN Creatinine Ratio 12.9 (10-20); Calcium 8.4 mg/dl (8.6-10.3); Creatinine Clr Calc Pharmacy 73.8 ml/min; Est GFR (African American) 92.1 ml/min; Est GFR (Non-African American) 79.5 ml/min
[2023-03-08] MEDS: INSULIN ASPART PER UNIT CHARGE SC SCH ×4 (08:00→20:36)
[2023-03-08] MEDS: PIPERACILLIN/TAZOBACTAM 4.5 GM in DEXTROSE 5% 100 ML IV SCH ×3 (08:00→23:21)
[2023-03-08] MEDS: TERAZOSIN HCL 1 MG CAP PO SCH (08:03)
[2023-03-08] MEDS: FUROSEMIDE 40 MG TAB PO SCH ×2 (08:03→17:11)
[2023-03-08] MEDS: lisinopril 2.5 MG TAB PO SCH (08:04)
[2023-03-08] MEDS: SERTRALINE HCL 50 MG TABLET PO SCH (08:04)
[2023-03-08] MEDS: AMIODARONE 200 MG TAB PO SCH (08:05)
[2023-03-08] MEDS: LANTUS PER UNIT CHARGE SQ SCH ×2 (08:09→20:37)
[2023-03-08] MEDS: METOPROLOL SUCC 25MG EXT REL TAB PO SCH (09:21)
--- NOTE | 2023-03-08 11:55 | Hospitalist Progress Note ---
Date of Service March 08, 2023 Assessment & Plan (1) Osteomyelitis: Plan: Increasing pain left foot, ulceration and swelling with redness and tenderness involving the left lower extremity No sepsis POA In ER vitals stable. No leukocytosis. ESR and CRP elevated Noted to have osteomyelitis involving the left great toe as below In ER given Zosyn, daptomycin, clindamycin Now continuing with intravenous Zosyn and vancomycin Appreciate Ortho input and recommendation-does not require any further evaluation by the vascular surgery as per Ortho note He will have amputation of the great toes when the INR is below 1.5 No current indication for surgery Continue current antibiotic Imaging studies as below: Left toe x-ray: Areas of cortical destruction involving the proximal and distal phalanx of the left first toe consistent with osteomyelitis. Small foci of soft tissue gas seen throughout the majority of the left first toe. This is concerning for a gas-forming organism. Right toe x-ray: Erosive change in the medial head of the first proximal phalanx is highly suspicious for osteomyelitis. Correlate clinically. (2) Cellulitis of leg, left: Plan: Patient is 77 y/o M with PMH ischemic cardiomyopathy, a-flutter, chronic systolic and diastolic CHF, DM II, HTN, LBBB, BPH, ADOLPH and others listed below presented to ER with complaint of toe infection. Has cellulitis of the left leg seems to be spreading from the left big toe Redness and swelling has been improving since admission Left leg cellulitis is much improved Outpatient arterial duplex 02/23/23: RIGHT LEG: No hemodynamically significant stenosis identified in the distal external iliac, common femoral, proximal anastomosis, superficial femoral, tibioperoneal, posterior tibial, peroneal and anterior tibial arteries. >75% stenosis of distal popliteal artery. Right YEFRI is 0.98. Possible overestimated due to heavy calcified tibial arteries LEFT LEG: No hemodynamically significant stenosis identified in the distal external iliac, common femoral, proximal anastomosis, superficial femoral, tibioperoneal, posterior tibial, peroneal and anterior tibial arteries. Focal occlusion of the mid anterior tibial artery with distal reconstitution Left YEFRI is 0.95. Possibly overestimated due to heavily calcified tibial arteries Vascular surgery is consulted but not available until next few weeks Will consult Dr. Rodriges on Thursday (3) Ischemic cardiomyopathy: Plan: S/P ICD 06/2021 echo: EF: 20-24% Continue aspirin, atorvastatin, metoprolol succinate, Lasix No acute cardiac symptoms Likely to need cardiac evaluation prior to surgery if undertaken Denies any cardiac symptoms (4) Paroxysmal atrial flutter: Plan: Anticoagulated on warfarin INR: 5.6. No signs of active bleeding Hold warfarin Continue amiodarone, digoxin, metoprolol succinate Rate is stable (5) Diabetes mellitus, type 2: Plan: A1c: 8.3 on 12/22/2022 Hold oral meds and insulin Basal bolus insulin per protocol (6) Hypertension: Plan: Continue lisinopril, metoprolol succinate Blood pressure remains controlled (7) BPH (benign prostatic hyperplasia): Plan: Continue finasteride, terazosin (8) Sleep apnea: Plan: CPAP at bedtime DVT Prophylaxis INR currently supratherapeutic. Monitor INR INR is elevated-hold Coumadin for now DNR/DNI as per discussion with pt Follows with Dr Beth Mcginnis for routine care Admission and Anticipated Discharge Date Admission Date: March 06, 2023 Subjective 03/07/2023 The patient was seen and examined in medical telemetry unit He was admitted with worsening wound involving the left big toe with adjoining edema and redness of the left lower extremity and also chronic ulceration right big toe No fever and or chills but did have pain Has been feeling reasonably better this morning 03/08/2023 The patient was seen and examined in medical telemetry unit He has been feeling much better and the left leg is improved with less swelling and less redness Denies any fever and or chills Review of Systems Musculoskeletal: Pain in both big toes more on the left than the right with swelling and redness involving the right lower extremity Physical Exam Physical Exam: Lying in bed comfortably Constitutional: well developed, well nourished, + ill appearing and + obese Eyes: PERRL, conjunctivae normal, anicteric sclerae ENMT: external ear and nose normal, oropharynx normal Neck: trachea midline, no thyromegaly Respiratory: no respiratory distress Auscultation: lungs clear to auscultation bilaterally Cardiovascular: Rate/Rhythm: regular rate and regular rhythm; not tachycardic Heart Sounds: normal S1 and normal S2; no murmur Extremities: + edema (Left leg edema with redness and tenderness) Gastrointestinal (Abdomen): Inspection/Auscultation: normal bowel sounds; abdomen not distended Percussion/Palpation: abdomen soft; abdomen nontender Musculoskeletal: No acute arthritis involving any joint Neurologic: moves all extremities; no focal motor deficits Psychiatric: A+Ox3, euthymic affect Lymphatic: no cervical or axillary lymphadenopathy Results & Data Results & Data Vital Signs (Past 12 Hours) Vital Signs Temp Pulse Pulse Resp BP BP Pulse Ox 03/08/23 11:06 36.5 C 71 18 116/65 95 03/08/23 06:01 73 03/08/23 07:49 36.4 C L 71 20 119/72 96 03/08/23 03:27 36.5 C 70 16 114/63 95 O2 Del Method 03/08/23 11:06 Room Air 03/08/23 06:01 03/08/23 07:49 Room Air 03/08/23 03:27 Room Air Laboratory Results Short CBC 03/08/23 Range/Units 06:43 WBC 7.36 (4.8-10.8) K/ul Hgb 11.5 L (14.0-18.0) g/dl Hct 34.8 L (42.0-52.0) % Plt Count 255 (130-400) K/uL BMP 03/08/23 06:43 Sodium 138 Potassium 4.0 Chloride 104 Carbon Dioxide 26 BUN 12 Creatinine 0.93 Glucose 153 H Calcium 8.4 L Medications Administered Current Inpatient Medications Acetaminophen (Acetaminophen 325 Mg Tab) 650 mg PO Q4H PRN PRN Reason: Pain or Fever Stop: 04/05/23 21:39 Amiodarone HCl (Amiodarone 200 Mg Tab) 200 mg PO QAM [facility] Stop: 04/06/23 08:59 Last Admin: 03/08/23 08:05 Dose: 200 mg Aspirin (Aspirin 81 Mg Chew) 81 mg PO PM [facility] Stop: 04/05/23 21:39 Last Admin: 03/07/23 21:18 Dose: 81 mg Atorvastatin Calcium (Atorvastatin 40 Mg Tab) 80 mg PO HS [facility] Stop: 04/05/23 21:39 Last Admin: 03/07/23 21:20 Dose: 80 mg Dextrose (Dextrose 50% 50 Ml Syringe) 25 - 50 ml IV UD PRN; Protocol PRN Reason: Hypoglycemia Protocol Stop: 04/05/23 21:39 Digoxin (Digoxin 0.125 Mg Tab) 0.125 mg PO PM [facility] Stop: 04/05/23 21:39 Last Admin: 03/07/23 21:19 Dose: 0.125 mg Finasteride (Finasteride 5 Mg Tab) 5 mg PO HS [facility] Stop: 04/05/23 21:39 Last Admin: 03/07/23 21:20 Dose: 5 mg Furosemide (Furosemide 40 Mg Tab) 40 mg PO [id number] [facility] Stop: 04/05/23 21:39 Last Admin: 03/08/23 08:03 Dose: 40 mg Glucagon (Glucagon For Inj 1 Mg Vial) 1 mg SQ UD PRN; Protocol PRN Reason: Hypoglycemia Protocol Stop: 04/05/23 21:39 Glucose (Glucose 10 Tab/Tube) 4 - 8 tab PO UD PRN; Protocol PRN Reason: Hypoglycemia Treatment Stop: 04/05/23 21:39 Glucose (Glucose 40% Gel 15 Gm Tube) 15 - 30 gm PO UD PRN; Protocol PRN Reason: Hypoglycemia Protocol Stop: 04/05/23 21:39 Piperacillin Sod/Tazobactam (Sod 4.5 gm/ Dextrose) 120 mls @ 30 mls/hr IV Q8H [facility]; Protocol Stop: 04/18/23 00:00 Last Admin: 03/08/23 08:00 Dose: 30 mls/hr Vancomycin HCl 1,000 mg/ (Sodium Chloride) 270 mls @ 200 mls/hr IV Q12H [facility]; Protocol Stop: 04/18/23 05:59 Last Infusion: 03/08/23 07:00 Dose: Infused Insulin Aspart (Insulin Aspart Per Unit Charge) 0 units SC ACHS [facility] Stop: 04/05/23 21:39 Last Admin: 03/08/23 08:00 Dose: 4 units Insulin Glargine (Lantus Per Unit Charge) 0 units SQ BID [facility] Stop: 04/05/23 21:39 Last Admin: 03/08/23 08:09 Dose: 14 units Lisinopril (Lisinopril 2.5 Mg Tab) [facility] Stop: 04/06/23 08:59 Last Admin: 03/08/23 08:04 Dose: 2.5 mg Metoprolol Succinate (Metoprolol Succ 25mg Ext Rel Tab) 25 mg PO QAM [facility] Stop: 04/06/23 08:59 Last Admin: 03/08/23 09:21 Dose: 25 mg Miscellaneous (Carbohydrates For Hypoglycemia ) 15 - 30 gm PO UD PRN PRN Reason: Hypoglycemia Protocol Stop: 04/05/23 21:39 Miscellaneous Information (Vancomycin Consult Active) 1 each N/A UD PRN PRN Reason: Consult Stop: 04/05/23 21:39 Ondansetron HCl (Ondansetron Inj 2 Mg/Ml 2 Ml Vial) 4 mg IV Q6H PRN PRN Reason: Nausea Stop: 04/05/23 21:39 Polyethylene Glycol (Polyethylene (Miralax) 17 Gm Pack) 17 gm PO DAILY PRN PRN Reason: Constipation Stop: 04/05/23 21:39 Sertraline HCl (Sertraline Hcl 50 Mg Tablet) 75 mg PO QAM [facility] Stop: 04/06/23 08:59 Last Admin: 03/08/23 08:04 Dose: 75 mg Terazosin HCl (Terazosin Hcl 1 Mg Cap) 2 mg PO DAILY [facility] Stop: 04/06/23 08:59 Last Admin: 03/08/23 08:03 Dose: 2 mg Tramadol HCl (Tramadol Hcl 50 Mg Tablet) 50 mg PO Q8 PRN PRN Reason: Pain Stop: 04/05/23 21:39 Trazodone HCl (Trazodone Hcl 50 Mg Tab) 50 mg PO HS [facility] Stop: 04/05/23 21:39 Last Admin: 03/07/23 21:17 Dose: 50 mg
--- NOTE | 2023-03-08 12:59 | Pharmacy Report ---
Pharmacy PK ABX Note - Date of Service March 08, 2023 - Assessment and Plan Assessment 03/08: L toe culture with pinpoint growth, reincubating. R toe culture with coag negative staph. Blood cultures ngtd. Continues on vanc/zosyn. Random level of 15.1 today predicts therapeutic levels. 77 year old M receiving vancomycin/zosyn for treatment of osteo/cellulitis. Pertinent microbiologic data includes: MRSA nasal culture negative, recent left toe cultures with Alcaligenes faecalis and MSSA. Current right toe culture- no growth, left toe pin point growth, blood cultures pending. Plan 03/08: Continue 1000 mg q12H, further levels in 2-3 days or with changes in renal function. Vancomycin * Loading dose: 1750 mg IV x 1 * Maintenance dose: 1000 mg IV every 12 hours * Regimen is predicted to achieve target AUC/LUCERO of 400-600 mg/L.hr * Random level ordered 03/08 @ 1200 Pharmacy will continue to follow and will adjust dose/frequency as necessary. Thank you. Pharmacy has transitioned to AUC monitoring for vancomycin. AUC/LUCERO is the preferred PK/PD target and is associated with decreased risk of nephrotoxicity compared to traditional trough targets.
[2023-03-08] MEDS: ASPIRIN 81 MG CHEW PO SCH (20:33)
[2023-03-08] MEDS: ATORVASTATIN 40 MG TAB PO SCH (20:33)
[2023-03-08] MEDS: DIGOXIN 0.125 MG TAB PO SCH (20:34)
[2023-03-08] MEDS: FINASTERIDE 5 MG TAB PO SCH (20:35)
[2023-03-08] MEDS: traZODone HCL 50 MG TAB PO SCH (20:36)
[2023-03-09] MEDS: VANCOMYCIN HCL 1,000 MG in SODIUM CHLORIDE 0.9% 250 ML IV SCH ×2 (05:10→17:19)
[2023-03-09 07:57] LABS: INR 2.1 (0.9-1.1); Prothrombin Time 21.2 Seconds (9.0-12.0)
[2023-03-09] MEDS: SERTRALINE HCL 50 MG TABLET PO SCH (09:07)
[2023-03-09] MEDS: METOPROLOL SUCC 25MG EXT REL TAB PO SCH (09:07)
[2023-03-09] MEDS: TERAZOSIN HCL 1 MG CAP PO SCH (09:07)
[2023-03-09] MEDS: lisinopril 2.5 MG TAB PO SCH (09:07)
[2023-03-09] MEDS: AMIODARONE 200 MG TAB PO SCH (09:08)
[2023-03-09] MEDS: FUROSEMIDE 40 MG TAB PO SCH ×2 (09:08→16:34)
[2023-03-09] MEDS: PIPERACILLIN/TAZOBACTAM 4.5 GM in DEXTROSE 5% 100 ML IV SCH ×3 (09:08→23:34)
[2023-03-09] MEDS: INSULIN ASPART PER UNIT CHARGE SC SCH ×4 (09:09→20:27)
[2023-03-09] MEDS: LANTUS PER UNIT CHARGE SQ SCH ×2 (09:10→21:07)
--- NOTE | 2023-03-09 10:48 | Progress Notes ---
DATE OF SERVICE: 03/09/2023. No problems are reported. He is afebrile. His vital signs are stable. INR today is 2.1. The right big toe shows the dorsal wound with no exposed bone, no evidence of cellulitis. The cellulitis on t he left leg has improved. The left big toe shows exposed necrotic bone. Plan is to proceed with jyoti ateral big toe amputations. He is booked for surgery on Thursday morning. We will need to do the p reop, get the consent, etc. His INR will need to be 1.5 or less. I spoke with Dr. Desir. Job ID: [id number]
[2023-03-09] MEDS ORDERED: Heparin IV Adult Wt-Based Low-Dose *NO* Bolus Protocol IV SCH (11:15)
[2023-03-09] MEDS ORDERED: HEPARIN SODIUM/DEXTROSE 25,000 UNITS/500 ML BAG IV SCH (11:15)
--- NOTE | 2023-03-09 14:22 | Hospitalist Progress Note ---
Date of Service March 09, 2023 Assessment & Plan (1) Osteomyelitis: Plan: Increasing pain left foot, ulceration and swelling with redness and tenderness involving the left lower extremity No sepsis POA In ER vitals stable. No leukocytosis. ESR and CRP elevated Noted to have osteomyelitis involving the left great toe as below In ER given Zosyn, daptomycin, clindamycin Now continuing with intravenous Zosyn and vancomycin Appreciate Ortho input and recommendation-does not require any further evaluation by the vascular surgery as per Ortho note He will have amputation of the great toes when the INR is below 1.5 Remains stable without any fever and or chills Will have surgery on Thursday as per Ortho INR is 2.1 today and will check it tomorrow again Imaging studies as below: Left toe x-ray: Areas of cortical destruction involving the proximal and distal phalanx of the left first toe consistent with osteomyelitis. Small foci of soft tissue gas seen throughout the majority of the left first toe. This is concerning for a gas-forming organism. Right toe x-ray: Erosive change in the medial head of the first proximal phalanx is highly suspicious for osteomyelitis. Correlate clinically. (2) Cellulitis of leg, left: Plan: Patient is 77 y/o M with PMH ischemic cardiomyopathy, a-flutter, chronic systolic and diastolic CHF, DM II, HTN, LBBB, BPH, ADOLPH and others listed below presented to ER with complaint of toe infection. Has cellulitis of the left leg seems to be spreading from the left big toe Redness and swelling has been improving since admission Left leg cellulitis is much improved Completely resolved and the pain is better to Outpatient arterial duplex 02/23/23: RIGHT LEG: No hemodynamically significant stenosis identified in the distal ext ernal iliac, common femoral, proximal anastomosis, superficial femoral, tibioperoneal, posterior tibial, peroneal and anterior tibial arteries. >75% stenosis of distal popliteal artery. Right YEFRI is 0.98. Possible overestimated due to heavy calcified tibial arteries LEFT LEG: No hemodynamically significant stenosis identified in the distal external iliac, common femoral, proximal anastomosis, superficial femoral, tibioperoneal, posterior tibial, peroneal and anterior tibial arteries. Focal occlusion of the mid anterior tibial artery with distal reconstitution Left YEFRI is 0.95. Possibly overestimated due to heavily calcified tibial arteries Vascular surgery is consulted but not available until next few weeks Has had vascular surgery evaluation before as per Ortho note Will go ahead with the surgery as planned by the Ortho (3) Ischemic cardiomyopathy: Plan: S/P ICD 06/2021 echo: EF: 20-24% Continue aspirin, atorvastatin, metoprolol succinate, Lasix No acute cardiac symptoms Likely to need cardiac evaluation prior to surgery if undertaken Denies any cardiac symptoms (4) Paroxysmal atrial flutter: Plan: Anticoagulated on warfarin INR: 5.6. No signs of active bleeding Hold warfarin Continue amiodarone, digoxin, metoprolol succinate Rate is stable without any cardiac symptoms (5) Diabetes mellitus, type 2: Plan: A1c: 8.3 on 12/22/2022 Hold oral meds and insulin Basal bolus insulin per protocol (6) Hypertension: Plan: Continue lisinopril, metoprolol succinate Blood pressure remains controlled (7) BPH (benign prostatic hyperplasia): Plan: Continue finasteride, terazosin (8) Sleep apnea: Plan: CPAP at bedtime DVT Prophylaxis INR currently supratherapeutic. Monitor INR INR is 2.1-Coumadin is on hold INR should be below 1.5 before surgery DNR/DNI as per discussion with pt Follows with Dr Beth Mcginnis for routine care Admission and Anticipated Discharge Date Admission Date: March 06, 2023 Subjective 03/07/2023 The patient was seen and examined in medical telemetry unit He was admitted with worsening wound involving the left big toe with adjoining edema and redness of the left lower extremity and also chronic ulceration right big toe No fever and or chills but did have pain Has been feeling reasonably better this morning 03/08/2023 The patient was seen and examined in medical telemetry unit He has been feeling much better and the left leg is improved with less swelling and less redness Denies any fever and or chills 03/09/2023 The patient was seen and examined in medical telemetry unit He has been stable and denies any significant symptoms He will have surgery on Thursday INR is 2.1 today Review of Systems Review of Systems: All systems reviewed and are unremarkable except as noted below Musculoskeletal: Pain in both big toes more on the left than the right with swelling and redness involving the right lower extremity Physical Exam Physical Exam: Lying in bed comfortably Constitutional: well developed, well nourished, + ill appearing and + obese Eyes: PERRL, conjunctivae normal, anicteric sclerae ENMT: external ear and nose normal, oropharynx normal Neck: trachea midline, no thyromegaly Respiratory: no respiratory distress Auscultation: lungs clear to ausculta tion bilaterally Cardiovascular: Rate/Rhythm: regular rate and regular rhythm; not tachycardic Heart Sounds: normal S1 and normal S2; no murmur Extremities: + edema (Left leg edema with redness and tenderness) Gastrointestinal (Abdomen): Inspection/Auscultation: normal bowel sounds; abdomen not distended Percussion/Palpation: abdomen soft; abdomen nontender Musculoskeletal: No acute arthritis but has significant wound involving both the great toes Neurologic: moves all extremities; no focal motor deficits Psychiatric: A+Ox3, euthymic affect Lymphatic: no cervical or axillary lymphadenopathy Results & Data Results & Data Vital Signs (Past 12 Hours) Vital Signs Temp Pulse Pulse Resp BP Pulse Ox O2 Del Method 03/09/23 11:50 36.3 C L 76 20 114/68 95 Room Air 03/09/23 06:06 70 03/09/23 07:14 36.4 C L 73 20 123/80 97 Room Air 03/09/23 02:58 36.4 C L 70 18 120/65 96 Room Air Medications Administered Current Inpatient Medications Acetaminophen (Acetaminophen 325 Mg Tab) 650 mg PO Q4H PRN PRN Reason: Pain or Fever Stop: 04/05/23 21:39 Amiodarone HCl (Amiodarone 200 Mg Tab) 200 mg PO QAM [facility] Stop: 04/06/23 08:59 Last Admin: 03/09/23 09:08 Dose: 200 mg Aspirin (Aspirin 81 Mg Ectab) 81 mg PO PM [facility] Stop: 04/08/23 20:59 Atorvastatin Calcium (Atorvastatin 40 Mg Tab) 80 mg PO HS [facility] Stop: 04/05/23 21:39 Last Admin: 03/08/23 20:33 Dose: 80 mg Dextrose (Dextrose 50% 50 Ml Syringe) 25 - 50 ml IV UD PRN; Protocol PRN Reason: Hypoglycemia Protocol Stop: 04/05/23 21:39 Digoxin (Digoxin 0.125 Mg Tab) 0.125 mg PO PM [facility] Stop: 04/05/23 21:39 Last Admin: 03/08/23 20:34 Dose: 0.125 mg Finasteride (Finasteride 5 Mg Tab) 5 mg PO HS [facility] Stop: 04/05/23 21:39 Last Admin: 03/08/23 20:35 Dose: 5 mg Furosemide (Furosemide 40 Mg Tab) 40 mg PO [id number] [facility] Stop: 04/05/23 21:39 Last Admin: 03/09/23 09:08 Dose: 40 mg Glucagon (Glucagon For Inj 1 Mg Vial) 1 mg SQ UD PRN; Protocol PRN Reason: Hypoglycemia Protocol Stop: 04/05/23 21:39 Glucose (Glucose 10 Tab/Tube) 4 - 8 tab PO UD PRN; Protocol PRN Reason: Hypoglycemia Treatment Stop: 04/05/23 21:39 Glucose (Glucose 40% Gel 15 Gm Tube) 15 - 30 gm PO UD PRN; Protocol PRN Reason: Hypoglycemia Protocol Stop: 04/05/23 21:39 Piperacillin Sod/Tazobactam (Sod 4.5 gm/ Dextrose) 120 mls @ 30 mls/hr IV Q8H [facility]; Protocol Stop: 04/18/23 00:00 Last Infusion: 03/09/23 13:13 Dose: Infused Vancomycin HCl 1,000 mg/ (Sodium Chloride) 270 mls @ 200 mls/hr IV Q12H [facility]; Protocol Stop: 04/18/23 05:59 Last Infusion: 03/09/23 07:00 Dose: Infused Insulin Aspart (Insulin Aspart Per Unit Charge) 0 units SC ACHS [facility] Stop: 04/05/23 21:39 Last Admin: 03/09/23 12:26 Dose: 5 units Insulin Glargine (Lantus Per Unit Charge) 0 units SQ BID [facility] Stop: 04/05/23 21:39 Last Admin: 03/09/23 09:10 Dose: 14 units Lisinopril (Lisinopril 2.5 Mg Tab) 2.5 mg PO QAM [facility] Stop: 04/06/23 08:59 Last Admin: 03/09/23 09:07 Dose: 2.5 mg Metoprolol Succinate (Metoprolol Succ 25mg Ext Rel Tab) 25 mg PO QAM [facility] Stop: 04/06/23 08:59 Last Admin: 03/09/23 09:07 Dose: 25 mg Miscellaneous (Carbohydrates For Hypoglycemia ) 15 - 30 gm PO UD PRN PRN Reason: Hypoglycemia Protocol Stop: 04/05/23 21:39 Miscellaneous Information (Vancomycin Consult Active) 1 each N/A UD PRN PRN Reason: Consult Stop: 04/05/23 21:39 Ondansetron HCl (Ondansetron Inj 2 Mg/Ml 2 Ml Vial) 4 mg IV Q6H PRN PRN Reason: Nausea Stop: 04/05/23 21:39 Polyethylene Glycol (Polyethylene (Miralax) 17 Gm Pack) 17 gm PO DAILY PRN PRN Reason: Constipation Stop: 04/05/23 21:39 Sertraline HCl (Sertraline Hcl 50 Mg Tablet) 75 mg PO QAM [facility] Stop: 04/06/23 08:59 Last Admin: 03/09/23 09:07 Dose: 75 mg Terazosin HCl (Terazosin Hcl 1 Mg Cap) 2 mg PO DAILY [facility] Stop: 04/06/23 08:59 Last Admin: 03/09/23 09:07 Dose: 2 mg Tramadol HCl (Tramadol Hcl 50 Mg Tablet) 50 mg PO Q8 PRN PRN Reason: Pain Stop: 04/05/23 21:39 Trazodone HCl (Trazodone Hcl 50 Mg Tab) 50 mg PO [facility] Stop: 04/05/23 21:39 Last Admin: 03/08/23 20:36 Dose: 50 mg
[2023-03-09] MEDS: ASPIRIN 81 MG ECTAB PO SCH (21:07)
[2023-03-09] MEDS: DIGOXIN 0.125 MG TAB PO SCH (21:08)
[2023-03-09] MEDS: ATORVASTATIN 40 MG TAB PO SCH (21:08)
[2023-03-09] MEDS: FINASTERIDE 5 MG TAB PO SCH (21:09)
[2023-03-09] MEDS: traZODone HCL 50 MG TAB PO SCH (21:09)
[2023-03-10] MEDS: VANCOMYCIN HCL 1,000 MG in SODIUM CHLORIDE 0.9% 250 ML IV SCH (05:40)
[2023-03-10 08:33] LABS: Est GFR (Non-African American) 65.6 ml/min
[2023-03-10 08:41] LABS: INR 1.5 (0.9-1.1); Prothrombin Time 15.3 Seconds (9.0-12.0)
[2023-03-10] MEDS: AMIODARONE 200 MG TAB PO SCH (09:04)
[2023-03-10] MEDS: FUROSEMIDE 40 MG TAB PO SCH ×2 (09:04→17:09)
[2023-03-10] MEDS: SERTRALINE HCL 50 MG TABLET PO SCH (09:05)
[2023-03-10] MEDS: TERAZOSIN HCL 1 MG CAP PO SCH (09:05)
[2023-03-10] MEDS: METOPROLOL SUCC 25MG EXT REL TAB PO SCH (09:05)
[2023-03-10] MEDS: lisinopril 2.5 MG TAB PO SCH (09:05)
[2023-03-10] MEDS: PIPERACILLIN/TAZOBACTAM 4.5 GM in DEXTROSE 5% 100 ML IV SCH ×2 (09:05→16:45)
[2023-03-10] MEDS: INSULIN ASPART PER UNIT CHARGE SC SCH ×4 (09:08→20:38)
[2023-03-10] MEDS: LANTUS PER UNIT CHARGE SQ SCH ×2 (09:09→20:38)
[2023-03-10] MEDS ORDERED: Heparin IV Adult Wt-Based Low-Dose *NO* Bolus Protocol IV SCH (09:14)
[2023-03-10] MEDS: HEPARIN SODIUM/DEXTROSE 25,000 UNITS/500 ML BAG IV SCH (09:38)
--- NOTE | 2023-03-10 10:48 | History & Physical Report ---
Date of Service March 10, 2023 Assessment & Plan (1) Osteomyelitis: Plan: Patient is scheduled to go to the operating room with Dr. Deal on 03/11/2023 for bilateral great toe amputation. Consent was obtained during his office visit on 02/20/[address] Deal.This is on his chart. We discussed risk and benefits of the procedure. Discussed risks with surgery not limited to but including infection, bleeding, wound dehiscence, scarring, neurovascular damage to lower extremities, delayed healing, thrombus, embolism DVT heart attack, stroke, . Patient verbalized understanding of this and would like to continue with the process of surgical intervention. Patient's PT/INR is 1.5 today. He will be n.p.o. tonight at midnight. He was advised nothing to eat or drink. If he needs medications he may take with a small sip of water. He is currently on IV antibiotics vancomycin and Zosyn we will continue with these at this time. All questions were answered appropriately and to patient's satisfaction. Present on Admission?: Yes (2) Ischemic cardiomyopathy: Plan: S/P ICD 06/2021 echo: EF: 20-24% Continue aspirin, atorvastatin, metoprolol succinate, Lasix No acute cardiac symptoms Likely to need cardiac evaluation prior to surgery if undertaken Denies any cardiac symptoms (3) Paroxysmal atrial flutter: Plan: Anticoagulated on warfarin INR: 5.6. No signs of active bleeding Hold warfarin Continue amiodarone, digoxin, metoprolol succinate Rate is stable without any cardiac symptoms (4) Diabetes mellitus, type 2: Plan: A1c: 8.3 on 12/22/2022 Hold oral meds and insulin Basal bolus insulin per protocol (5) Hypertension: Plan: Continue lisinopril, metoprolol succinate Blood pressure remains controlled (6) BPH (benign prostatic hyperplasia): Plan: Continue finasteride, terazosin (7) Sleep apnea: Plan: CPAP at bedtime DVT Prophylaxis INR currently supratherapeutic. Monitor INR INR is 2.1-Coumadin is on hold INR should be below 1.5 before surgery DNR/DNI as per discussion with pt Follows with Dr Beth Mcginnis for routine care Admission and Anticipated Discharge Date Admission Date: March 06, 2023 History of Present Illness Primary Care Provider: Beth L. Kopinski, DO Patient is 77 y/o M with PMH ischemic cardiomyopathy, a-flutter, chronic systolic and diastolic CHF, DM II, HTN, LBBB, BPH, ADOLPH and others listed below presented to ER with complaint of toe infection. Patient is a known patient to Dr. Jama Macias. He was previously seen in the office on 02/20/2023 for examination of bilateral great toe wounds. He explains he has had issues with the great toe wounds for over a year however the past 3 months the wound has been coming worse and skin has been falling off. He states the left toe is worse than the right. He has a history of toe infections and had been seen previously and cared for at the wound clinic. He states the left toe is black and you can see the bone with some drainage. He states both toes have some drainage and odor from this. He has been on multiple oral antibiotics including Bactrim and doxycycline. He was planned to have surgical intervention however prior to doing this per Dr. Deal's note in our office on 02/20 he wanted him to be seen by vascular. He had seen vascular however he became septic and was seen in the emergency department and admitted. He has been since receiving IV Vanco and Zosyn. He states he is feeling better and he will be happy to get the toes taken care of. He denies any pain at this time. He states he has paresthesia in the toes and feet this is baseline for him. He is a diabetic. He has a pacemaker ICD and was seen by [facility]. He does report this morning about 8:10 the pacemaker did go off. He denies any shortness of breath chest pain or dizziness. He denies syncope, vision changes, neck pain, CP, SOB, orthopnea, palpitations, cough, sore throat rhinorrhea, abdominal pain, paresthesias, weakness, extremity weakness, other extremity edema, rashes, urinary symptoms. Allergies Allergy/AdvReac Type Severity Reaction Status Date / Time No Known Allergies Allergy Unknown Verified 03/06/23 17:52 Home Medications Medication Instructions Recorded Confirmed Type atorvastatin 80 mg tablet 80 mg PO HS 09/17/20 03/06/23 History finasteride 5 mg tablet 5 mg PO HS 09/17/20 03/06/23 History furosemide 40 mg tablet (Lasix) 40 mg PO BID 09/17/20 03/06/23 History insulin human U-100 NPH-regulr 20 unit subcut QAM 09/17/20 03/06/23 History 70-30 mix 100 unit/mL subcutaneous susp (Novolin 70/30 U-100 Insulin) lisinopril 2.5 mg tablet 2.5 mg PO QAM 09/17/20 03/06/23 History metformin 1,000 mg tablet 1,000 mg PO BID 09/17/20 03/06/23 History metoprolol succinate 50 mg 25 mg PO QAM 09/17/20 03/06/23 History tablet,extended release 24 hr nitroglycerin 0.4 mg sublingual 0.4 mg sublingual UD PRN Angina 09/17/20 03/06/23 History tablet omega-3 fatty acids 1,000 mg PO BID 09/17/20 03/06/23 History sertraline 25 mg tablet 25 mg PO QAM 09/17/20 03/06/23 History sertraline 50 mg tablet 50 mg PO QAM 09/17/20 03/06/23 History vit C 250 mg-vit E 90 mg-zinc 40 1 tab PO BID 09/17/20 03/06/23 History mg-copper 1 [id number] capsule (PreserVision AREDS-2) warfarin 10 mg tablet 10 mg PO DIRECTED 09/17/20 03/06/23 History amiodarone 200 mg tablet 200 mg PO QAM 02/28/21 03/06/23 History digoxin 125 mcg (0.125 mg) tablet 125 mcg PO PM 02/28/21 03/06/23 History aspirin 81 mg chewable tablet 81 mg PO PM 03/06/23 03/06/23 History empagliflozin 10 mg tablet 10 mg PO QAM 03/06/23 03/06/23 History (Jardiance) semaglutide 1 mg/dose (4 mg/3 mL) 1 mg subcut WE 03/06/23 03/06/23 History subcutaneous pen injector (Ozempic) terazosin 2 mg capsule 2 mg PO DAILY 03/06/23 03/06/23 History tramadol 50 mg tablet 50 mg PO Q8 PRN Pain 03/06/23 03/06/23 History trazodone 50 mg tablet 50 mg PO HS 03/06/23 03/06/23 History Past Med/Surg History Medical History Anxiety Apical mural thrombus History of- on chronic Coumadin BPH (benign prostatic hyperplasia) CAD (coronary artery disease) S/p 3 vessel bypass 1997 Chronic systolic CHF (congestive heart failure) Severe LV dysfunction Depression Diabetes mellitus, type 2 Hyperlipidemia Hypertension ICD (implantable cardioverter-defibrillator) in place Biventricular ICD upgrade 08/2020 [employer]- h/o ICD discharge 10/2020 x 2 per 01/2021 ICD check Ischemic cardiomyopathy EF= 13% on 10/2020 stress test LBBB (left bundle branch block) Follows with cardio Myocardial Infarction x3--last 1997--follows with Dr. Bang Mgcinnis On anticoagulant therapy warfarin daily Paroxysmal atrial flutter Sleep apnea cpap Surgical History History of appendectomy History of bilateral cataract extraction History of cardiac [place] [facility] [place], had [place]G History of carpal tunnel surgery of right wrist History of colonoscopy History of implantable cardioverter-defibrillator (ICD) placement inserted 01/2007, replaced 02/2016, upgraded to BiV ICD on 09/19/20--[employer] History of surgery left leg vein removed for bypass History of tonsillectomy and adenoidectomy S/[place] [facility] [place] Family History Other No family history of adverse response to anesthesia Social History Smoking Status: Former smoker Tobacco Type: Smokeless Tobacco (Dip or Chew) Second Hand Exposure: No; Do You Dip or Chew Tobacco: Yes; Tobacco Cessation Education Requested by Patient: No Hx Alcohol Use: No Hx Substance Use: No Preferred Language: Nigerian Communication Ability: Effective 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 Beliefs That Will Affect Care: None Current Living Situation: Spouse Other Information That Helps Us Care for You: No Feels Safe at Home: Yes Safety Concerns: Feels Safe At This Time Assistive Devices: Cane Physical Exam Constitutional: WD/WN, vitals as above Eyes: EOM intact bilaterally ENMT: external ear and nose normal, oropharynx normal Neck: normal visual inspection Respiratory: normal respiratory effort, lungs clear to auscultation Cardiovascular: Rate/Rhythm: regular rate and regular rhythm Gastrointestinal (Abdomen): normal bowel sounds, soft, nontender, no hepatosplenomegaly Musculoskeletal: Patient had socks over bilateral feet. They were removed. The dressing on the left toe easily slid off when sock came off. Dressing remained on the right toe. Left toe has eschar tissue with drainage and bone exposure. Odor to bilateral toes. Dressing was removed off of the right toe. Very little drainage however there is an odor. Negative for erythema over left lower extremity. The left lower extremity was outlined from previous erythema in this shows no erythema within the line or outside of the line. He is able to flex and extend ankles equal bilaterally unable to appreciate any palpable dorsal pedis or tibial posterior pulses bilaterally. Sensation is subjectively absent over bilateral lower extremities. Skin: Please refer to musculoskeletal Psychiatric: Orientation: alert, oriented x 3 and cooperative Results & Data Results & Data Vital Signs (Past 12 Hours) Vital Signs Temp Pulse Pulse Pulse Resp BP BP 03/10/23 07:26 36.3 C L 71 16 112/71 03/10/23 07:12 70 03/10/23 04:00 36.4 C L 71 19 100/63 03/09/23 23:27 70 03/09/23 23:00 36.8 C 71 18 96/56 L 97/59 L Pulse Ox O2 Del Method 03/10/23 07:26 96 Room Air 03/10/23 07:12 03/10/23 04:00 92 Room Air 03/09/23 23:27 03/09/23 23:00 97 Room Air Laboratory Results 03/10/23 03/10/23 03/10/23 Range/Units 07:32 07:32 07:20 PT 15.3 H (9.0-12.0) Seconds INR 1.5 H (0.9-1.1) Creatinine 1.09 (0.6-1.4) mg/dl Est Cr Clr Drug Dosing 63.0 ml/min Est GFR ( Amer) 76.0 ml/min Est GFR (Non-Af Amer) 65.6 ml/min POC Glucose 165 H (70-99) mg/dl 03/09/23 03/09/23 03/09/23 Range/Units 20:06 16:39 11:39 PT (9.0-12.0) Seconds INR (0.9-1.1) Creatinine (0.6-1.4) mg/dl Est Cr Clr Drug Dosing ml/min Est GFR ( Amer) ml/min Est GFR (Non-Af Amer) ml/min POC Glucose 140 H 125 H 167 H (70-99) mg/dl
--- NOTE | 2023-03-10 16:18 | Hospitalist Progress Note ---
Date of Service March 10, 2023 Assessment & Plan (1) Osteomyelitis: Plan: Increasing pain left foot, ulceration and swelling with redness and tenderness involving the left lower extremity No sepsis POA In ER vitals stable. No leukocytosis. ESR and CRP elevated Noted to have osteomyelitis involving the left great toe as below In ER given Zosyn, daptomycin, clindamycin Now continuing with intravenous Zosyn and vancomycin Appreciate Ortho input and recommendation-does not require any further evaluation by the vascular surgery as per Ortho note He will have amputation of the great toes when the INR is below 1.5 Remains stable without any fever and or chills Will have surgery on Thursday as per Ortho Wound culture is growing Staph aureus not MRSA and vancomycin was discontinued. Zosyn has been continued intravenously INR is 1. 5 today and will start intravenous heparin Hold heparin after midnight for proposed surgery in the morning Gas gangrene involving left big toe with osteomyelitis as above Imaging studies as below: Left toe x-ray: Areas of cortical destruction involving the proximal and distal phalanx of the left first toe consistent with osteomyelitis. Small foci of soft tissue gas seen throughout the majority of the left first toe. This is concerning for a gas-forming organism. Right toe x-ray: Erosive change in the medial head of the first proximal phalanx is highly suspicious for osteomyelitis. Correlate clinically. (2) Cellulitis of leg, left: Plan: Patient is 77 y/o M with PMH ischemic cardiomyopathy, a-flutter, chronic systolic and diastolic CHF, DM II, HTN, LBBB, BPH, ADOLPH and others listed below presented to ER with complaint of toe infection. Has cellulitis of the left leg seems to be spreading from the left big toe Redness and swelling has been improving since admission Left leg cellulitis is much improved Completely resolved and the pain is better too Cellulitis and wound have been improving Wound is growing MSSA and intravenous Zosyn is continued as the patient is diabetic Outpatient arterial duplex 02/23/23: RIGHT LEG: No hemodynamically significant stenosis identified in the distal external iliac, common femoral, proximal anastomosis, superficial femoral, tibioperoneal, posterior tibial, peroneal and anterior tibial arteries. >75% stenosis of distal popliteal artery. Right YEFRI is 0.98. Possible overestimated due to heavy calcified tibial arteries LEFT LEG: No hemodynamically significant stenosis identified in the distal external iliac, common femoral, proximal anastomosis, superficial femoral, tibioperoneal, posterior tibial, peroneal and anterior tibial arteries. Focal occlusion of the mid anterior tibial artery with distal reconstitution Left YEFRI is 0.95. Possibly overestimated due to heavily calcified tibial arteries Vascular surgery is consulted but not available until next few weeks Has had vascular surgery evaluation before as per Ortho note Will go ahead with the surgery as planned by the Ortho (3) Ischemic cardiomyopathy: Plan: S/P ICD 06/2021 echo: EF: 20-24% Continue aspirin, atorvastatin, metoprolol succinate, Lasix No acute cardiac symptoms Likely to need cardiac evaluation prior to surgery if undertaken Denies any cardiac symptoms Blood pressure is on the lower side otherwise hemodynamically stable (4) Paroxysmal atrial flutter: Plan: Anticoagulated on warfarin INR: 5.6. No signs of active bleeding Hold warfarin Continue amiodarone, digoxin, metoprolol succinate Rate is stable without any cardiac symptoms Has been on Coumadin which is on hold due to possible surgery tomorrow IV heparin which would be changed to oral Coumadin when appropriate as per Ortho (5) Diabetes mellitus, type 2: Plan: A1c: 8.3 on 12/22/2022 Hold oral meds and insulin Basal bolus insulin per protocol (6) Hypertension: Plan: Continue lisinopril, metoprolol succinate Blood pressure remains controlled We will hold lisinopril (7) BPH (benign prostatic hyperplasia): Plan: Continue finasteride, terazosin (8) Sleep apnea: Plan: CPAP at bedtime DVT Prophylaxis INR currently supratherapeutic. Monitor INR INR is 2.1-Coumadin is on hold INR should be below 1.5 before surgery DNR/DNI as per discussion with pt Follows with Dr Beth Mcginnis for routine care Admission and Anticipated Discharge Date Admission Date: March 06, 2023 Subjective 03/07/2023 The patient was seen and examined in medical telemetry unit He was admitted with worsening wound involving the left big toe with adjoining edema and redness of the left lower extremity and also chronic ulceration right big toe No fever and or chills but did have pain Has been feeling reasonably better this morning 03/08/2023 The patient was seen and examined in medical telemetry unit He has been feeling much better and the left leg is improved with less swelling and less redness Denies any fever and or chills 03/09/2023 The patient was seen and examined in medical telemetry unit He has been stable and denies any significant symptoms He will have surgery on Thursday INR is 2.1 today 03/10/2023 The patient was seen and examined in medical telemetry unit He has been feeling much better and denies any symptoms He is left leg swelling and redness have improved He will have amputation of the great toes tomorrow Review of Systems Review of Systems: All systems reviewed and are unremarkable except as noted below Musculoskeletal: Pain in both big toes more on the left than the right with swelling and redness involving the right lower extremity Physical Exam Physical Exam: Lying in bed comfortably Constitutional: well developed, well nourished, + ill appearing and + obese Eyes: PERRL, conjunctivae normal, anicteric sclerae ENMT: external ear and nose normal, oropharynx normal Neck: trachea midline, no thyromegaly Respiratory: no respiratory distress Auscultation: lungs clear to auscultation bilaterally Cardiovascular: Rate/Rhythm: regular rate and regular rhythm; not tachycardic Heart Sounds: normal S1 and normal S2; no murmur Extremities: + edema (Left leg edema with redness and tenderness) Gastrointestinal (Abdomen): Inspection/Auscultation: normal bowel sounds; abdomen not distended Percussion/Palpation: abdomen soft; abdomen nontender Musculoskeletal: No acute arthritis involving any joint but has ulcerations involving great toes Neurologic: moves all extremities; no focal motor deficits Psychiatric: A+Ox3, euthymic affect Lymphatic: no cervical or axillary lymphadenopathy Results & Data Results & Data Vital Signs (Past 12 Hours) Vital Signs Temp Pulse Pulse Resp BP Pulse Ox O2 Del Method 03/10/23 16:05 71 03/10/23 15:15 36.7 C 69 18 99/60 L 95 Room Air 03/10/23 11:14 36.4 C L 70 12 125/70 95 Room Air 03/10/23 07:26 36.3 C L 71 16 112/71 96 Room Air 03/10/23 07:12 70 Laboratory Results [facility] 03/10/23 07:32 Creatinine 1.09 Medications Administered Current Inpatient Medications Acetaminophen (Acetaminophen 325 Mg Tab) 650 mg PO Q4H PRN PRN Reason: Pain or Fever Stop: 04/05/23 21:39 Amiodarone HCl (Amiodarone 200 Mg Tab) 200 mg PO QAM [facility] Stop: 04/06/23 08:59 Last Admin: 03/10/23 09:04 Dose: 200 mg Aspirin (Aspirin 81 Mg Ectab) 81 mg PO PM [facility] Stop: 04/08/23 20:59 Last Admin: 03/09/23 21:07 Dose: 81 mg Atorvastatin Calcium (Atorvastatin 40 Mg Tab) 80 mg PO HS [facility] Stop: 04/05/23 21:39 Last Admin: 03/09/23 21:08 Dose: 80 mg Dextrose (Dextrose 50% 50 Ml Syringe) 25 - 50 ml IV UD PRN; Protocol PRN Reason: Hypoglycemia Protocol Stop: 04/05/23 21:39 Digoxin (Digoxin 0.125 Mg Tab) 0.125 mg PO PM [facility] Stop: 04/05/23 21:39 Last Admin: 03/09/23 21:08 Dose: 0.125 mg Finasteride (Finasteride 5 Mg Tab) 5 mg PO HS [facility] Stop: 04/05/23 21:39 Last Admin: 03/09/23 21:09 Dose: 5 mg Furosemide (Furosemide 40 Mg Tab) 40 mg PO [id number] [facility] Stop: 04/05/23 21:39 Last Admin: 03/10/23 09:04 Dose: 40 mg Glucagon (Glucagon For Inj 1 Mg Vial) 1 mg SQ UD PRN; Protocol PRN Reason: Hypoglycemia Protocol Stop: 04/05/23 21:39 Glucose (Glucose 10 Tab/Tube) 4 - 8 tab PO UD PRN; Protocol PRN Reason: Hypoglycemia Treatment Stop: 04/05/23 21:39 Glucose (Glucose 40% Gel 15 Gm Tube) 15 - 30 gm PO UD PRN; Protocol PRN Reason: Hypoglycemia Protocol Stop: 04/05/23 21:39 Piperacillin Sod/Tazobactam (Sod 4.5 gm/ Dextrose) 120 mls @ 30 mls/hr IV Q8H [facility]; Protocol Stop: 04/18/23 00:00 Last Infusion: 03/10/23 13:13 Dose: Infused Heparin Sodium/Dextrose (Heparin Sodium/Dextrose) 25,000 units in 500 mls @ 19 mls/hr IV .Q24H [facility]; Protocol Stop: 04/09/23 09:29 Last Admin: 03/10/23 09:38 Dose: 950 units/hr, 19 mls/hr Insulin Aspart (Insulin Aspart Per Unit Charge) 0 units SC ACHS [facility] Stop: 04/05/23 21:39 Last Admin: 03/10/23 12:21 Dose: 6 units Insulin Glargine (Lantus Per Unit Charge) 0 units SQ BID [facility] Stop: 04/05/23 21:39 Last Admin: 03/10/23 09:09 Dose: 14 units Lisinopril (Lisinopril 2.5 Mg Tab) [facility] Stop: 04/06/23 08:59 Last Admin: 03/10/23 09:05 Dose: 2.5 mg Metoprolol Succinate (Metoprolol Succ 25mg Ext Rel Tab) [facility] Stop: 04/06/23 08:59 Last Admin: 03/10/23 09:05 Dose: 25 mg Miscellaneous (Carbohydrates For Hypoglycemia ) 15 - 30 gm PO UD PRN PRN Reason: Hypoglycemia Protocol Stop: 04/05/23 21:39 Miscellaneous (Stop Heaprin Drip Order) 1 each N/A ONE ONE Stop: 03/11/23 00:01 Ondansetron HCl (Ondansetron Inj 2 Mg/Ml 2 Ml Vial) 4 mg IV Q6H PRN PRN Reason: Nausea Stop: 04/05/23 21:39 Polyethylene Glycol (Polyethylene (Miralax) 17 Gm Pack) 17 gm PO DAILY PRN PRN Reason: Constipation Stop: 04/05/23 21:39 Sertraline HCl (Sertraline Hcl 50 Mg Tablet) [facility] Stop: 04/06/23 08:59 Last Admin: 03/10/23 09:05 Dose: 75 mg Terazosin HCl (Terazosin Hcl 1 Mg Cap) 2 mg PO DAILY [facility] Stop: 04/06/23 08:59 Last Admin: 03/10/23 09:05 Dose: 2 mg Tramadol HCl (Tramadol Hcl 50 Mg Tablet) 50 mg PO Q8 PRN PRN Reason: Pain Stop: 04/05/23 21:39 Trazodone HCl (Trazodone Hcl 50 Mg Tab) 50 mg PO HS [facility] Stop: 04/05/23 21:39 Last Admin: 03/09/23 21:09 Dose: 50 mg
[2023-03-10 16:29] LABS: Partial Thromboplastin Ratio 1.3; Partial Thromboplastin Time 36.5 Seconds (21.0-31.0)
[2023-03-10] MEDS ORDERED: HEPARIN IV BOLUS 3,000 UNITS in SYRINGE 0 ML IV SCH (17:00)
[2023-03-10] MEDS: DIGOXIN 0.125 MG TAB PO SCH (20:37)
[2023-03-10] MEDS: traZODone HCL 50 MG TAB PO SCH (20:37)
[2023-03-10] MEDS: FINASTERIDE 5 MG TAB PO SCH (20:38)
[2023-03-10] MEDS: ATORVASTATIN 40 MG TAB PO SCH (20:38)
[2023-03-10] MEDS: ASPIRIN 81 MG ECTAB PO SCH (20:38)
[2023-03-11] MEDS ORDERED: [UNRECOGNIZED DRUG - REMARK] ONE
[2023-03-11] MEDS: PIPERACILLIN/TAZOBACTAM 4.5 GM in DEXTROSE 5% 100 ML IV SCH ×4 (00:01→23:50)
[2023-03-11] MEDS: INSULIN ASPART PER UNIT CHARGE SC SCH ×5 (07:38→20:33)
[2023-03-11] MEDS ORDERED: Nursing to Pharmacy Communication SCH ×2 (07:45→14:00)
[2023-03-11] MEDS: FUROSEMIDE 40 MG TAB PO SCH ×2 (07:47→16:57)
[2023-03-11] MEDS: lisinopril 2.5 MG TAB PO SCH (07:48)
[2023-03-11] MEDS: TERAZOSIN HCL 1 MG CAP PO SCH (07:48)
[2023-03-11] MEDS: SERTRALINE HCL 50 MG TABLET PO SCH (07:51)
[2023-03-11] MEDS: AMIODARONE 200 MG TAB PO SCH (07:52)
[2023-03-11] MEDS: METOPROLOL SUCC 25MG EXT REL TAB PO SCH (07:52)
[2023-03-11] MEDS: LANTUS PER UNIT CHARGE SQ SCH ×2 (07:58→20:33)
--- NOTE | 2023-03-11 08:13 | History & Physical Bridge Note ---
Date of Service March 11, 2023 History & Physical Bridge Note I have examined the patient, reviewed the History & Physical and in the interval since the performance of the History & Physical I have noted the following changes of clinical significance: no changes noted
[2023-03-11 08:19] LABS: Basophils # (auto) 0.07 K/uL (0-0.2); Basophils % (auto) 0.9 %; Eosinophils # (auto) 0.43 K/uL (0-0.50); Eosinophils % (auto) 5.6 %; Hematocrit (blood only) 38.5 % (42.0-52.0); Hemoglobin 12.5 g/dl (14.0-18.0); Immature Granulocytes # (auto) 0.02 K/uL (0.01-0.20); Immature Granulocytes % (auto) 0.3 %; Lymphocytes # (auto) 1.55 K/uL (1.2-3.4); Lymphocytes % (auto) 20.3 %; Mean Corpuscular Hemoglobin 28.2 pg (25.0-34.0); Mean Corpuscular Hgb Conc 32.5 g/dL (32.0-36.0); Mean Corpuscular Volume 86.9 fL (80.0-100.0); Mean Platelet Volume 8.7 fL (9.4-12.4); Monocytes # (auto) 0.54 K/uL (0.11-0.59); Monocytes % (auto) 7.1 %; Neutrophils # (auto) 5.01 K/uL (1.40-6.50); Neutrophils % (auto) 65.8 %; Platelet Count 309 K/uL (130-400); RDW Coefficient of Variation 15.5 % (11.5-14.5); RDW Standard Deviation 49.1 fL (36.4-46.3); Red Blood Count 4.43 M/uL (4.70-6.10); White Blood Count 7.62 K/ul (4.8-10.8)
[2023-03-11] MEDS ORDERED: fentaNYL citrate PF 100 MCG/2 ML VIAL IV PRN (08:27)
[2023-03-11] MEDS ORDERED: ePHEDrine sulfate 50 MG/ML AMP IV PRN (08:27)
[2023-03-11] MEDS ORDERED: LABETALOL HCL IV 5 MG/ML 20ML IV PRN (08:27)
[2023-03-11] MEDS ORDERED: ONDANSETRON INJ 2 MG/ML 2 ML VIAL IV PRN (08:27)
[2023-03-11] MEDS ORDERED: ALBUTEROL 0.083% NEBU SOLN 3 ML VIAL INH PRN (08:27)
[2023-03-11] MEDS ORDERED: ATROPINE SULFATE 0.1 MG/ML 10ML SYR IV PRN (08:27)
--- NOTE | 2023-03-11 08:27 | Anesthesiology Consultation ---
Date of Service March 11, 2023 Assessment & Plan Chart Review Chart Review: Acceptable Risk for Surgery ASA ASA3 Proposed Anesthesia Anesthesia Type: General History Surgery Operation Date: 03/11/23 08:35 Proposed Procedures p Bilateral Big Toe Amputation - Brett Deal MD Height/Weight Height: 5 ft 9 in Weight: 86 kg Allergies Allergy/AdvReac Type Severity Reaction Status Date / Time No Known Allergies Allergy Unknown Verified 03/06/23 17:52 Medications Home Medications Medication Instructions Recorded Confirmed Last Taken atorvastatin 80 mg tablet 80 mg PO HS 09/17/20 03/06/23 03/05/23 finasteride 5 mg tablet 5 mg PO HS 09/17/20 03/06/23 Unknown furosemide 40 mg tablet (Lasix) 40 mg PO BID 09/17/20 03/06/23 03/05/23 insulin human U-100 NPH-regulr 20 unit subcut QAM 09/17/20 03/06/23 03/06/23 70-30 mix 100 unit/mL subcutaneous susp (Novolin 70/30 U-100 Insulin) lisinopril 2.5 mg tablet 2.5 mg PO QAM 09/17/20 03/06/23 03/06/23 metformin 1,000 mg tablet 1,000 mg PO BID 09/17/20 03/06/23 03/06/23 metoprolol succinate 50 mg 25 mg PO QAM 09/17/20 03/06/23 03/06/23 tablet,extended release 24 hr nitroglycerin 0.4 mg sublingual 0.4 mg sublingual UD PRN Angina 09/17/20 03/06/23 Unknown tablet omega-3 fatty acids 1,000 mg PO BID 09/17/20 03/06/23 Unknown sertraline 25 mg tablet 25 mg PO QAM 09/17/20 03/06/23 03/06/23 sertraline 50 mg tablet 50 mg PO QAM 09/17/20 03/06/23 03/06/23 vit C 250 mg-vit E 90 mg-zinc 40 1 tab PO BID 09/17/20 03/06/23 Unknown mg-copper 1 [id number] capsule (PreserVision AREDS-2) warfarin 10 mg tablet 10 mg PO DIRECTED 09/17/20 03/06/23 03/05/23 21:00 amiodarone 200 mg tablet 200 mg PO QAM 02/28/21 03/06/23 03/06/23 digoxin 125 mcg (0.125 mg) tablet 125 mcg PO PM 02/28/21 03/06/23 03/05/23 aspirin 81 mg chewable tablet 81 mg PO PM 03/06/23 03/06/23 03/05/23 empagliflozin 10 mg tablet 10 mg PO QAM 03/06/23 03/06/23 03/06/23 (Jardiance) semaglutide 1 mg/dose (4 mg/3 mL) 1 mg subcut WE 03/06/23 03/06/23 02/20/23 subcutaneous pen injector (Ozempic) terazosin 2 mg capsule 2 mg PO DAILY 03/06/23 03/06/23 Unknown tramadol 50 mg tablet 50 mg PO Q8 PRN Pain 03/06/23 03/06/23 Unknown trazodone 50 mg tablet 50 mg PO HS 03/06/23 03/06/23 Unknown Active Medications Generic Name Dose Route Start Last Admin Trade Name [facility] PRN Reason Stop Dose Admin Amiodarone HCl 200 mg 03/07/23 09:00 03/11/23 07:52 Amiodarone 200 Mg Tab PO 04/06/23 08:59 200 mg QAM MAGDALENE Administration Aspirin 81 mg 03/09/23 21:00 03/10/23 20:38 Aspirin 81 Mg Ectab PO 04/08/23 20:59 81 mg PM MAGDALENE Administration Atorvastatin Calcium 80 mg 03/06/23 21:40 03/10/23 20:38 Atorvastatin 40 Mg Tab PO 04/05/23 21:39 80 mg HS MAGDALENE Administration Digoxin 0.125 mg 03/06/23 21:40 03/10/23 20:37 Digoxin 0.125 Mg Tab PO 04/05/23 21:39 0.125 mg PM MAGDALENE Administration Finasteride 5 mg 03/06/23 21:40 03/10/23 20:38 Finasteride 5 Mg Tab PO 04/05/23 21:39 5 mg HS MAGDALENE Administration Furosemide 40 mg 03/06/23 21:40 03/11/23 07:47 Furosemide 40 Mg Tab PO 04/05/23 21:39 Not Given BID17 MAGDALENE Piperacillin Sod/Tazobactam 120 mls @ 30 mls/hr 03/07/23 00:00 03/11/23 08:14 Sod 4.5 gm/ Dextrose IV 04/18/23 00:00 30 mls/hr Q8H MAGDALENE Administration Protocol Heparin Sodium/Dextrose 25,000 units in 500 mls @ 0 mls/hr 03/10/23 09:30 03/11/23 00:01 Heparin Sodium/Dextrose IV 04/09/23 09:29 0 units/hr .Q0M MAGDALENE 0 mls/hr Titration Protocol 0 UNITS/HR Insulin Aspart 0 units 03/11/23 07:30 03/11/23 07:38 Insulin Aspart Per Unit Charge SC 04/10/23 07:29 Not Given Q6 MAGDALENE Insulin Glargine 0 units 03/06/23 21:40 03/11/23 07:58 Lantus Per Unit Charge SQ 04/05/23 21:39 5 units BID MAGDALENE Administration Lisinopril 2.5 mg 03/07/23 09:00 03/11/23 07:48 Lisinopril 2.5 Mg Tab PO 04/06/23 08:59 Not Given QAM MAGDALENE Metoprolol Succinate 25 mg 03/07/23 09:00 03/11/23 07:52 Metoprolol Succ 25mg Ext Rel Tab PO 04/06/23 08:59 25 mg QAM MAGDALENE Administration Sertraline HCl 75 mg 03/07/23 09:00 03/11/23 07:51 Sertraline Hcl 50 Mg Tablet PO 04/06/23 08:59 75 mg QAM MAGDALENE Administration Terazosin HCl 2 mg 03/07/23 09:00 03/11/23 07:48 Terazosin Hcl 1 Mg Cap PO 04/06/23 08:59 Not Given DAILY MAGDALENE Trazodone HCl 50 mg 03/06/23 21:40 03/10/23 20:37 Trazodone Hcl 50 Mg Tab PO 04/05/23 21:39 50 mg HS MAGDALENE Administration NPO Date Last Intake of Fluids: 03/10/23 Time Last Intake of Fluids: 22:00 Date Last Intake of Solids: 03/10/23 Time Last Intake of Solids: 21:00 Past Medical History Medical History Anxiety Apical mural thrombus History of- on chronic Coumadin BPH (benign prostatic hyperplasia) CAD (coronary artery disease) S/p 3 vessel bypass 1997 Chronic systolic CHF (congestive heart failure) Severe LV dysfunction Depression Diabetes mellitus, type 2 Hyperlipidemia Hypertension ICD (implantable cardioverter-defibrillator) in place Biventricular ICD upgrade 08/2020 Medtronic- h/o ICD discharge 10/2020 x 2 per 01/2021 ICD check Ischemic cardiomyopathy EF= 13% on 10/2020 stress test LBBB (left bundle branch block) Follows with cardio Myocardial Infarction x3--last 1997--follows with Dr. Bang Mcginnis On anticoagulant therapy warfarin daily Paroxysmal atrial flutter Sleep apnea cpap Past Family History Family History Other No family history of adverse response to anesthesia Past Surgical History Surgical History History of appendectomy History of bilateral cataract extraction History of cardiac cath x1--1997 [place] [facility] [place], had CABG History of carpal tunnel surgery of right wrist History of colonoscopy History of implantable cardioverter-defibrillator (ICD) placement inserted 01/2007, replaced 02/2016, upgraded to BiV ICD on 09/19/20--[employer] History of surgery left leg vein removed for bypass History of tonsillectomy and adenoidectomy S/P triple vessel [place] [facility] [place] Social History Smoking Status: Former smoker tobacco type: smokeless tobacco Do You Dip or Chew Tobacco: Yes Hx Alcohol Use: No Alcohol type: beer alcohol intake frequency: a few times a week Hx Substance Use: No substance use type: does not use Review of Systems Respiratory: no problem reported Cardiovascular: no problem reported Physical Exam Vital Signs Last Vital Signs Temp 36.5 C 03/11/23 08:12 Pulse 75 03/11/23 08:12 Resp 18 03/11/23 08:12 BP 129/78 03/11/23 08:12 Pulse Ox 98 03/11/23 08:12 O2 Del Method Room Air 03/11/23 08:12 ENMT Mallampati Class: II Neck normal visual inspection Respiratory normal respiratory effort; no respiratory distress Auscultation: lungs clear to auscultation bilaterally Cardiovascular Rate/Rhythm: regular rate and regular rhythm Psychiatric Orientation: alert and oriented x 3 Testing Laboratory Results 03/11/23 07:31 PT 15.3 Seconds (9.0-12.0) H 03/10/23 07:32 INR 1.5 (0.9-1.1) H 03/10/23 07:32 APTT 36.5 Seconds (21.0-31.0) H 03/10/23 15:37 Hemoglobin A1c 8.5 % (4.5-5.6) H 03/07/23 06:25 03/06/23 17:10 Gram Stain - Final Toe,Left Wound Culture - Final Staphylococcus aureus 03/06/23 16:17 Aerobic Blood Culture - Preliminary Blood No growth in Aerobic bottle after 48 hours. Anaerobic Blood Culture - Preliminary No growth in Anaerobic bottle after 48 hours. 03/06/23 16:17 Aerobic Blood Culture - Preliminary Blood No growth in Aerobic bottle after 48 hours. Anaerobic Blood Culture - Preliminary No growth in Anaerobic bottle after 48 hours. 03/06/23 17:10 Gram Stain - Final Toe,Right Wound Culture - Final Coag negative Staphylococcus 03/11/23 03/10/23 06:59 20:25 POC Glucose 157 H 159 H
[2023-03-11] MEDS ORDERED: ACETAMINOPHEN 1,000 MG/100 ML VIAL IV STA (08:31)
[2023-03-11 08:46] LABS: Creatinine Clr Calc Pharmacy 56.9 ml/min; Est GFR (African American) 67.7 ml/min; Est GFR (Non-African American) 58.4 ml/min; Potassium 4.4 mmol/L (3.5-5.1)
[2023-03-11 08:51] LABS: INR 1.3 (0.9-1.1); Prothrombin Time 13.3 Seconds (9.0-12.0)
[2023-03-11] MEDS ORDERED: MIDAZOLAM HCL 1 MG/ML 2ML VIAL ONE (09:15)
[2023-03-11] MEDS ORDERED: LIDOCAINE 1% LOCAL 20 ML VIAL ONE ×2 (09:20→09:41)
[2023-03-11] MEDS ORDERED: BUPIVACAINE 0.5 % 5 MG/1 ML MPF 30ML VIAL ONE (09:20)
[2023-03-11] MEDS ORDERED: BUPIVACAINE/EPINEPHRINE 0.5% MPF 1:200,000 30 ML VIAL ONE ×2 (09:31→09:42)
[2023-03-11] MEDS ORDERED: fentaNYL citrate PF 100 MCG/2 ML VIAL ONE (09:37)
[2023-03-11] MEDS ORDERED: ETOMIDATE 2 MG/ML 20 ML VIAL IV ONE (10:11)
[2023-03-11] MEDS ORDERED: PROPOFOL IV EMULSION 10 MG/ML 20 ML VIAL IV ONE (10:11)
[2023-03-11] MEDS ORDERED: PHENYLEPHRINE HCL 10 MG/ML VIAL ONE (10:12)
[2023-03-11] MEDS ORDERED: LIDOCAINE 2% MPF LOCAL 5 ML VIAL ONE (10:12)
[2023-03-11] MEDS ORDERED: TRANEXAMIC ACID / 0.7% NACL 1000MG/100ML BAG IV ONE (10:12)
--- NOTE | 2023-03-11 10:34 | Anesthesiology Progress Note ---
Date of Service March 11, 2023 Anesthesia Post Procedure Vital Signs Vital Signs: Temp Pulse Pulse Pulse Resp BP Pulse Ox 03/11/23 07:45 03/11/23 08:12 36.5 C 75 18 129/78 98 03/11/23 07:55 36.6 C 70 12 130/60 95 03/11/23 07:09 73 03/11/23 03:23 36.5 C 70 18 114/68 95 03/11/23 01:26 71 03/11/23 00:58 03/10/23 22:54 36.4 C L 69 18 113/65 95 03/10/23 20:37 70 03/10/23 19:34 36.6 C 70 18 102/60 96 03/10/23 16:05 71 03/10/23 15:15 36.7 C 69 18 99/60 L 95 03/10/23 11:14 36.4 C L 70 12 125/70 95 O2 Del Method 03/11/23 07:45 Room Air 03/11/23 08:12 Room Air 03/11/23 07:55 Room Air 03/11/23 07:09 03/11/23 03:23 Room Air 03/11/23 01:26 03/11/23 00:58 Room Air 03/10/23 22:54 Room Air 03/10/23 20:37 03/10/23 19:34 Room Air 03/10/23 16:05 03/10/23 15:15 Room Air 03/10/23 11:14 Room Air Pain Intensity Left Great Toe: Pain Intensity: 6 Right Great Toe: Pain Intensity: 2 Right Lower Leg: Pain Intensity: 3 Transfer of Care Handoff Completed per policy Notes Mental Status: alert / awake / arousable Patient Amnestic to Procedure: Yes Nausea / Vomiting: adequately controlled Pain: adequately controlled Airway Patency, RR, SpO2: stable & adequate BP & HR: stable & adequate Hydration State: stable & adequate Anesthetic Complications: no major complications apparent and Pt Satisfied with anesthetic care
--- NOTE | 2023-03-11 11:29 | Operative Report ---
Post Operative Report Pre & Post Diagnosis Operation Date: 03/11/23 08:35 Pre-Op Diagnosis: (1) Osteomyelitis Post-Op Diagnosis: (1) Osteomyelitis I identified the patient and participated in the time-out.: Yes Procedure Operation Date: 03/11/23 08:35 Actual Procedures p Bilateral Big Toe Amputation(Bilateral) - Brett Deal MD Surgeon Brett Deal MD Web Production Assistant Melissa Williamson Pa-C Estimated Blood Loss 50 Findings Consistent with Post-Op Diagnosis Specimens left and right great toe Anesthesia Type MAC Regional Description of Procedure Patient was taken to the operating room and placed under IV sedation. He was given ankle blocks bilaterally. Both limbs were prepped and draped in sterile routine fashion. I was present during the entire case. He was given 1 g of IV TXA intraoperatively. Please see Dr. Deal's operative report for further detail. Patient was awakened and transferred to the recovery room. I attest to the content of the Intraoperative Record and any orders documented therein. Any exceptions are noted below.
--- NOTE | 2023-03-11 11:48 | Fluoroscopy Report ---
FL toe LT 2V CLINICAL HISTORY: LT TOE AMPpartial amputation of the left forefoot COMPARISON STUDY: [Radiographs 02/16/2023 FLUOROSCOPY TIME: 3.5 seconds FLUOROSCOPY IMAGES: 1 EXPOSURE DOSE: 0.10 mGy FINDINGS: Status post amputation of the first toe at the level of the proximal diaphyseal metatarsal. Expected postoperative soft tissue swelling with deep tissue air. No acute fracture or unexpected op aque foreign body identified. IMPRESSION: Fluoroscopic assistance as above. ACT 112: Negative or not required by law. Electronically signed by: Andry Nguyen M.D. 03/11/2023 11:46 AM
--- NOTE | 2023-03-11 11:54 | Anesthesiology Progress Note ---
Date of Service March 11, 2023 Anesthesia Post Procedure Vital Signs Vital Signs: Temp Pulse Pulse Pulse Resp BP Pulse Ox 03/11/23 11:45 36.4 C L 70 15 117/68 98 03/11/23 11:35 72 20 117/66 99 03/11/23 11:25 36.3 C L 71 21 120/72 99 03/11/23 07:45 03/11/23 08:12 36.5 C 75 18 129/78 98 03/11/23 07:55 36.6 C 70 12 130/60 95 03/11/23 07:09 73 03/11/23 03:23 36.5 C 70 18 114/68 95 03/11/23 01:26 71 03/11/23 00:58 03/10/23 22:54 36.4 C L 69 18 113/65 95 03/10/23 20:37 70 03/10/23 19:34 36.6 C 70 18 102/60 96 03/10/23 16:05 71 03/10/23 15:15 36.7 C 69 18 99/60 L 95 O2 Del Method O2 Flow Rate 03/11/23 11:45 Room Air 03/11/23 11:35 Oxymask 4 03/11/23 11:25 Oxymask 6 03/11/23 07:45 Room Air 03/11/23 08:12 Room Air 03/11/23 07:55 Room Air 03/11/23 07:09 03/11/23 03:23 Room Air 03/11/23 01:26 03/11/23 00:58 Room Air 03/10/23 22:54 Room Air 03/10/23 20:37 03/10/23 19:34 Room Air 03/10/23 16:05 03/10/23 15:15 Room Air Pain Intensity Left Great Toe: Pain Intensity: 6 Right Great Toe: Pain Intensity: 2 Right Lower Leg: Pain Intensity: 3 Transfer of Care Handoff Completed per policy Notes Mental Status: alert / awake / arousable Patient Amnestic to Procedure: Yes Nausea / Vomiting: adequately controlled Pain: adequately controlled Airway Patency, RR, SpO2: stable & adequate BP & HR: stable & adequate Hydration State: stable & adequate Anesthetic Complications: no major complications apparent and Pt Satisfied with anesthetic care
--- NOTE | 2023-03-11 12:00 | Fluoroscopy Report ---
FL toe RT 2V CLINICAL HISTORY: Right great toe amputation. COMPARISON STUDY: 03/06/2023. FLUOROSCOPY TIME: 9 seconds FLUOROSCOPY IMAGES: 1 Ka,r: 0.2 mGy FINDINGS: Amputation of the right first toe at the level of the mid shaft of the first metatarsal. IMPRESSION: Fluoroscopic assistance as above. ACT 112: Negative or not required by law. Electronically signed by: Juan Soto M.D. 03/11/2023 11:58 AM
[2023-03-11] MEDS ORDERED: NALOXONE HCL 0.4 MG/1 ML VIAL/CARP IV PRN (12:36)
[2023-03-11] MEDS: SODIUM CHLORIDE 0.9% 1000ML 1,000 ML IV SCH ×2 (12:58→22:41)
--- NOTE | 2023-03-11 17:23 | Progress Notes ---
DATE OF SERVICE: 03/11/2023. No problems are reported. Pain is well controlled. Feet feel better. He is sitting up, eating. He is afebrile and his vital signs are stable. Drain output is minimal. Dressings are clean and dry. I discussed with him the findings relative to surgery. Plan is to continue the drains until at leas t tomorrow. We will restart him on his anticoagulation approximately 12 hours postop. Continue IV a ntibiotics. Elevate. Job ID: [id number]
--- NOTE | 2023-03-11 18:16 | Hospitalist Progress Note ---
Date of Service March 11, 2023 Assessment & Plan (1) Osteomyelitis: Plan: Patient is 77 y/o M with PMH ischemic cardiomyopathy, a-flutter, chronic systolic and diastolic CHF, DM II, HTN, LBBB, BPH, ADOLPH and others listed below presented to ER with complaint of toe infection. Acute bilateral Big Toe Osteomyelitis-POA Left Leg Cellulitis Possible gas gangrene left big toe --Right Toe X ray:Erosive change in the medial head of the first proximal phala nx is highly suspicious for osteomyelitis. Correlate clinically. --Left Toe X ray:Areas of cortical destruction involving the proximal and distal phalanx of the left first toe consistent with osteomyelitis. Small foci of soft tissue gas seen throughout the majority of the left first toe. This is concerning for a gas-forming organism. --S/P Bilateral Big Toe Amputation by on 03/11/2023 -Blood cultures negative to date --Wound culture growing Staph aureus Empirically on Zosyn, (vancomycin discontinued) Received clindamycin in ED Appreciate orthopedics input Continue wound care Consulted ID for further input (2) Cellulitis of leg, left: Plan: Wound culture growing MSSA Continue Zosyn for now Clinically improving PAD Outpatient arterial duplex 02/23/23: RIGHT LEG: No hemodynamically significant stenosis identified in the distal external iliac, common femoral, proximal anastomosis, superficial femoral, tibioperoneal, posterior tibial, peroneal and anterior tibial arteries. >75% stenosis of distal popliteal artery. Right YEFRI is 0.98. Possible overestimated due to heavy calcified tibial arteries LEFT LEG: No hemodynamically significant stenosis identified in the distal external iliac, common femoral, proximal anastomosis, superficial femoral, tibioperoneal, posterior tibial, peroneal and anterior tibial arteries. Focal occlusion of the mid anterior tibial artery with distal reconstitution Left YEFRI is 0.95. Possibly overestimated due to heavily calcified tibial arteries --Needs vascular surgery follow-up as outpatient Continue aspirin, Lipitor (3) Ischemic cardiomyopathy: Plan: S/P ICD 06/2021 echo: EF: 20-24% Continue aspirin, atorvastatin, metoprolol succinate, Lasix No acute cardiac symptoms Monitor volume status (4) Paroxysmal atrial flutter: Plan: Coagulopathy secondary to warfarin INR: 5.6. No signs of active bleeding Held warfarin for surgery Continue amiodarone, digoxin, metoprolol succinate Restart Coumadin as able (5) Diabetes mellitus, type 2: Plan: A1c: 8.3 on 12/22/2022 Hold oral meds and insulin Basal bolus insulin per protocol (6) Hypertension: Plan: Continue lisinopril, metoprolol succinate Monitor (7) BPH (benign prostatic hyperplasia): Plan: Continue finasteride, terazosin (8) Sleep apnea: Plan: CPAP at bedtime DVT Px Resume Coumadin as able Code Status DNR/DNI Admission and Anticipated Discharge Date Admission Date: March 06, 2023 Subjective Patient is seen and examined at bedside At bilateral big toe amputation this morning States feeling well postoperatively Denies any pain at surgical site Also denies any chest pain, shortness of breath, dizziness, nausea, abdominal pain Family at bedside No other complaints Review of Systems Review of Systems: All systems reviewed & are unremarkable except as noted in Subjective Physical Exam Physical Exam: Physical Exam: Vitals signs as noted above General Appearance:Moderately built and nourished, no apparent distress Head: normocephalic, Atraumatic Eyes: normal inspection, EOMI Neck: supple, Trachea midline Respiratory/Chest: Normal breath sounds, CTA, No accessory muscle use Cardiovascular: S1, S2, No murmur, +Pacer Abdomen/GI:Soft, Non tender, Bowel sounds present Extremities/Musculoskeletal:normal inspection, B/L LE edema, +S/P B/L Toe amputation,+Drain Neurologic/Psych:AAOX3, grossly no focal neurological deficits Skin: normal color, warm, Results & Data Results & Data Vital Signs (Past 12 Hours) Vital Signs Temp Pulse Pulse Pulse Pulse Resp BP 03/11/23 15:58 71 03/11/23 15:41 36.4 C L 72 18 115/72 03/11/23 15:06 36.3 C L 68 18 110/62 03/11/23 14:06 36.5 C 73 18 123/68 03/11/23 13:11 36.3 C L 72 13 126/73 03/11/23 12:48 70 03/11/23 12:37 36.5 C 70 18 121/68 03/11/23 12:05 70 12 106/65 03/11/23 11:55 70 16 116/61 03/11/23 11:45 36.4 C L 70 15 117/68 03/11/23 11:35 72 20 117/66 03/11/23 11:25 36.3 C L 71 21 120/72 03/11/23 07:45 03/11/23 08:12 36.5 C 75 18 129/78 03/11/23 07:55 36.6 C 70 12 130/60 03/11/23 07:09 73 Pulse Ox O2 Del Method O2 Flow Rate 03/11/23 15:58 03/11/23 15:41 98 Room Air 03/11/23 15:06 97 Room Air 03/11/23 14:06 96 Room Air 03/11/23 13:11 95 Room Air 03/11/23 12:48 03/11/23 12:37 95 Room Air 03/11/23 12:05 95 Room Air 03/11/23 11:55 94 Room Air 03/11/23 11:45 98 Room Air 03/11/23 11:35 99 Oxymask 4 03/11/23 11:25 99 Oxymask 6 03/11/23 07:45 Room Air 03/11/23 08:12 98 Room Air 03/11/23 07:55 95 Room Air 03/11/23 07:09 Laboratory Results Short CBC 03/11/23 Range/Units 07:31 WBC 7.62 (4.8-10.8) K/ul Hgb 12.5 L (14.0-18.0) g/dl Hct 38.5 L (42.0-52.0) % Plt Count 309 (130-400) K/uL BMP 03/11/23 07:31 Sodium 141 Potassium 4.4 Chloride 105 Carbon Dioxide 29 BUN 18 Creatinine 1.20 Glucose 165 H Calcium 9.0
[2023-03-11] MEDS: traMADol HCL 50 MG TABLET PO PRN (18:39)
[2023-03-11] MEDS: ASPIRIN 81 MG ECTAB PO SCH (20:11)
[2023-03-11] MEDS: ATORVASTATIN 40 MG TAB PO SCH (20:11)
[2023-03-11] MEDS: DIGOXIN 0.125 MG TAB PO SCH (20:11)
[2023-03-11] MEDS: FINASTERIDE 5 MG TAB PO SCH (20:12)
[2023-03-11] MEDS: traZODone HCL 50 MG TAB PO SCH (20:12)
[2023-03-11] MEDS: HEPARIN SODIUM/DEXTROSE 25,000 UNITS/500 ML BAG IV SCH (23:05)
--- NOTE | 2023-03-12 00:16 | Operative Report (OR) ---
PREOPERATIVE DIAGNOSIS: Bilateral diabetic ischemic big toe wounds. POSTOPERATIVE DIAGNOSIS: Bilateral diabetic ischemic big toe wounds. PROCEDURE: Bilateral partial first ray amputation. SURGEON: Brett Deal MD. TEXTILES AND CLOTHING TEACHER: Melissa Williamson. No resident or fellow available. ANESTHESIA: Sedation with ankle block. BRIEF INDICATIONS: Mr. Lynch is 77. He has multiple medical problems including peripheral arterial disease, diabetes, s ignificant heart disease. He has developed wounds on both big toes. The right one is partial-thickn ess down to the extensor tendon overlying the interphalangeal joint of the big toe. The left one has exposed proximal and distal phalanx of the big toe. He has been admitted to the hospital and the pl an is to proceed with bilateral big toe amputations. PROCEDURE IN DETAIL: Informed consent was obtained. Preprocedural timeout performed. The patient identified. He identif ied the operative site as both big toes. He received a preoperative dose of IV antibiotics as well a s TXA. He was positioned supine. No tourniquets were utilized. Both lower legs were pre-scrubbed w ith Betadine and then prepped with Betadine in the usual sterile fashion. DVT prophylaxis postop andrew l be done by placing him back on his blood thinner. I marked both operative sites with my initials b efore surgery. Fluoroscopic guidance was utilized throughout the case. I operated on the right toe first. I made a longitudinal incision down the medial shaft of the first metatarsal and then did a tennis racquet-type incision across the base of the first metatarsophalang eal joint. I sharply dissected down to the level of the bone and subperiosteally elevated the bone. At the level of the capsule of the first MTP joint, I dissected between the capsule and the subcutan eous tissues. The flexor and extensor tendons were identified proximally and transected. Fluoroscop ic guidance was utilized to identify the base of the first metatarsal and then about 1.5 to 2 cm dist al to this, I made an oblique cut with a saw and beveled it with a rongeur. I then dissected out the remaining portion of the toe and sent it for specimen. There was good bleeding throughout. Vessels were calcified. Hemostasis was achieved with bipolar electrocautery. The wound was irrigated with about a liter and a half of sterile saline. The right foot was packed off. I changed gloves. Went to the left big toe. The same tennis racquet incision was made. The toe had been covered with an Ioban while we were work ing on the right side. I dissected out in the same fashion subperiosteally and then above the capsul e for the joint. The amputation was done with a saw in the same fashion and specimens were sent sepa rately left and right. The left had the exposed bone; the right did not. The left one was irrigated with a liter and a half of sterile saline pulsatile lavage. Hemostasis wi bipolar electrocautery. Attention was turned to the left side where I used near-far, far-near stitches followed by insertion of a Hemovac drain exiting distally and then horizontal mattress stitches with 3-0 nylon to close the wound. The same closure was done on the left side. There was good healthy skin. The resection was done about 0.5 cm outside of the zone of necrosis. There was good bleeding tissue present throughou t and there were no abscesses appreciated. No unhealthy tissue remained. A drain was inserted on e left as well. Fluffs were placed between the toes. Xeroform, 4 x 4's, soft wrap, ABDs, Jamison wraps and postop shoes. The patient was awakened from anesthesia without difficulty and taken to recovery room in stable cond ition. Both big toes were sent for specimen. Counts were correct. Blood loss was estimated to be 5 0 mL. At the conclusion of the operation, I spoke to the patient's and informed her of my findin gs. Postop instructions were given. He will continue on IV antibiotics. His blood thinners will be started approximately 12 hours postop. Postop shoes. Elevation. Job ID: [id number]
[2023-03-12] MEDS: traMADol HCL 50 MG TABLET PO PRN (03:31)
[2023-03-12 03:33] LABS: Hematocrit (blood only) 32.2 % (42.0-52.0); Hemoglobin 10.6 g/dl (14.0-18.0); Mean Corpuscular Hemoglobin 28.4 pg (25.0-34.0); Mean Corpuscular Hgb Conc 32.9 g/dL (32.0-36.0); Mean Corpuscular Volume 86.3 fL (80.0-100.0); Mean Platelet Volume 8.6 fL (9.4-12.4); Platelet Count 250 K/uL (130-400); RDW Coefficient of Variation 15.5 % (11.5-14.5); RDW Standard Deviation 48.1 fL (36.4-46.3); Red Blood Count 3.73 M/uL (4.70-6.10); White Blood Count 9.03 K/ul (4.8-10.8)
[2023-03-12 03:50] LABS: Partial Thromboplastin Ratio 1.4; Partial Thromboplastin Time 37.9 Seconds (21.0-31.0)
[2023-03-12 03:52] LABS: Calcium 8.1 mg/dl (8.6-10.3)
[2023-03-12 03:58] LABS: BUN Creatinine Ratio 12.7 (10-20); Creatinine Clr Calc Pharmacy 62.1 ml/min; Est GFR (African American) 75.2 ml/min; Est GFR (Non-African American) 64.9 ml/min
[2023-03-12 04:00] LABS: INR 1.2 (0.9-1.1); Prothrombin Time 13.1 Seconds (9.0-12.0)
[2023-03-12] MEDS ORDERED: HEPARIN SOD (PORCINE) 1000 UNIT/ML IV ONE (04:45)
[2023-03-12] MEDS: HEPARIN SODIUM/DEXTROSE 25,000 UNITS/500 ML BAG IV SCH (06:03)
[2023-03-12] MEDS: PIPERACILLIN/TAZOBACTAM 4.5 GM in DEXTROSE 5% 100 ML IV SCH ×2 (07:40→17:18)
[2023-03-12] MEDS: AMIODARONE 200 MG TAB PO SCH (08:17)
[2023-03-12] MEDS: FUROSEMIDE 40 MG TAB PO SCH ×2 (08:17→17:15)
[2023-03-12] MEDS: SERTRALINE HCL 50 MG TABLET PO SCH (08:19)
[2023-03-12] MEDS: lisinopril 2.5 MG TAB PO SCH (08:21)
[2023-03-12] MEDS: METOPROLOL SUCC 25MG EXT REL TAB PO SCH (08:21)
[2023-03-12] MEDS: TERAZOSIN HCL 1 MG CAP PO SCH (08:22)
[2023-03-12] MEDS: LANTUS PER UNIT CHARGE SQ SCH ×2 (08:33→21:25)
[2023-03-12] MEDS: INSULIN ASPART PER UNIT CHARGE SC SCH ×4 (08:33→21:25)
--- NOTE | 2023-03-12 10:39 | Orthopedic Progress Note ---
Date of Service March 12, 2023 Assessment & Plan (1) Encounter for post surgical wound check: Plan: The patient was educated regarding today's findings. Conservative care measures were discussed. He is doing well at this time. There has been minimal drain output. Right side has put out 20 mL since yesterday surgery. Per Dr. Deal's recommendation, Hemovacs were removed. Dressings were left in place for compression and hemostasis. They will be changed either later today or tomorrow. Continue his Zosyn. Admission and Anticipated Discharge Date Admission Date: March 06, 2023 Subjective This 77-year-old male is seen today in his room. He is 1 day status post great toe amputations. He states he is doing fine. He only used 1 pain pill around midnight. He currently has no significant discomfort. His drains are in place on both feet. He thinks the one was drained sometime this morning, but the other 1 has not required anything. He denies any chest pain, shortness of breath, nausea, vomiting, or abdominal pain. No other complaints. Review of Systems Review of Systems: Unchanged from yesterday. Physical Exam Physical Exam: General: Well-developed, well-nourished, elderly male, in no acute distress. Laying in bed. Alert and conversive. Skin: Warm and dry with good turgor. No rashes. Bandages are present on both feet. These were not removed. Hemovac drains are in place. There is scant drainage in the tubing on the left. Approximately 5 to 6ml of blood in the container on the right. Musculoskeletal: The patient has intact motor function to both ankles and toes on both feet. Neurologic: Gross sensation is intact across both lower legs by soft touch. Results & Data Vital Signs (Past 12 Hours) Vital Signs Temp Pulse Pulse Resp BP Pulse Ox O2 Del Method 03/12/23 08:20 69 111/50 L 03/12/23 08:00 Room Air 03/12/23 07:30 36.6 C 70 16 99/63 L 97 Room Air 03/12/23 06:03 70 03/12/23 03:25 36.8 C 73 18 106/42 L 94 Room Air 03/12/23 00:00 75 03/11/23 23:34 37.1 C 84 20 122/66 97 Room Air Laboratory Results CBC obtained this morning shows a white count of 9.0. H&H of 10.6 and 32.2. INR of 1.2. BMP is unremarkable. Glucose 140.
[2023-03-12 12:07] LABS: Partial Thromboplastin Ratio 1.7
[2023-03-12 12:11] LABS: Partial Thromboplastin Time 47.6 Seconds (21.0-31.0)
--- NOTE | 2023-03-12 16:48 | Hospitalist Progress Note ---
Date of Service March 12, 2023 Assessment & Plan (1) Osteomyelitis: Plan: Patient is 77 y/o M with PMH ischemic cardiomyopathy, a-flutter, chronic systolic and diastolic CHF, DM II, HTN, LBBB, BPH, ADOLPH and others listed below presented to ER with complaint of toe infection. Acute bilateral Big Toe Osteomyelitis-POA Left Leg Cellulitis Possible gas gangrene left big toe --Right Toe X ray:Erosive change in the medial head of the first proximal phala nx is highly suspicious for osteomyelitis. Correlate clinically. --Left Toe X ray:Areas of cortical destruction involving the proximal and distal phalanx of the left first toe consistent with osteomyelitis. Small foci of soft tissue gas seen throughout the majority of the left first toe. This is concerning for a gas-forming organism. --S/P Bilateral Big Toe Amputation by on 03/11/2023 -Blood cultures negative to date --Wound culture growing Staph aureus Empirically on Zosyn, (vancomycin discontinued) Received clindamycin in ED Appreciate orthopedics input Continue wound care Consulted ID for further input--requests intraoperative cultures if available Continue current antibiotics for now (2) Cellulitis of leg, left: Plan: Wound culture growing MSSA Continue Zosyn for now Clinically improving PAD Outpatient arterial duplex 02/23/23: RIGHT LEG: No hemodynamically significant stenosis identified in the distal external iliac, common femoral, proximal anastomosis, superficial femoral, tibioperoneal, posterior tibial, peroneal and anterior tibial arteries. >75% stenosis of distal popliteal artery. Right YEFRI is 0.98. Possible overestimated due to heavy calcified tibial arteries LEFT LEG: No hemodynamically significant stenosis identified in the distal external iliac, common femoral, proximal anastomosis, superficial femoral, tibioperoneal, posterior tibial, peroneal and anterior tibial arteries. Focal occlusion of the mid anterior tibial artery with distal reconstitution Left YEFRI is 0.95. Possibly overestimated due to heavily calcified tibial arteries --Needs vascular surgery follow-up as outpatient Continue aspirin, Lipitor (3) Ischemic cardiomyopathy: Plan: S/P ICD 06/2021 echo: EF: 20-24% Continue aspirin, atorvastatin, metoprolol succinate, Lasix No acute cardiac symptoms Monitor volume status (4) Paroxysmal atrial flutter: Plan: Coagulopathy secondary to warfarin INR: 5.6. No signs of active bleeding Held warfarin for surgery Continue amiodarone, digoxin, metoprolol succinate Currently on IV heparin Restarted Coumadin today (5) Diabetes mellitus, type 2: Plan: A1c: 8.3 on 12/22/2022 Hold oral meds and insulin Basal bolus insulin per protocol (6) Hypertension: Plan: Continue lisinopril, metoprolol succinate Monitor (7) BPH (benign prostatic hyperplasia): Plan: Continue finasteride, terazosin (8) Sleep apnea: Plan: CPAP at bedtime DVT Px IV heparin Coumadin Code Status DNR/DNI Admission and Anticipated Discharge Date Admission Date: March 06, 2023 Subjective Patient is seen and examined at bedside States feeling well No new complaints Denies any bleeding issues Wound drains were removed today Denies any chest pain, shortness of breath, dizziness, nausea, abdominal pain, pain at surgical site Review of Systems Review of Systems: All systems reviewed & are unremarkable except as noted in Subjective Physical Exam Physical Exam: Physical Exam: Vitals signs as noted above General Appearance:Moderately built and nourished, no apparent distress Head: normocephalic, Atraumatic Eyes: normal inspection, EOMI Neck: supple, Trachea midline Respiratory/Chest: Normal breath sounds, CTA, No accessory muscle use Cardiovascular: S1, S2, No murmur, +Pacer Abdomen/GI:Soft, Non tender, Bowel sounds present Extremities/Musculoskeletal:normal inspection, B/L LE edema, +S/P B/L Toe amputation in dressing Neurologic/Psych:AAOX3, grossly no focal neurological deficits Skin: normal color, warm, Results & Data Results & Data Vital Signs (Past 12 Hours) Vital Signs Temp Pulse Pulse Resp BP Pulse Ox O2 Del Method 03/12/23 15:42 36.7 C 77 20 116/71 96 Room Air 03/12/23 11:03 36.5 C 70 16 113/64 95 Room Air 03/12/23 08:20 69 111/50 L 03/12/23 08:00 Room Air 03/12/23 07:30 36.6 C 70 16 99/63 L 97 Room Air 03/12/23 06:03 70 Laboratory Results Short CBC 03/12/23 Range/Units 03:14 WBC 9.03 (4.8-10.8) K/ul Hgb 10.6 L (14.0-18.0) g/dl Hct 32.2 L (42.0-52.0) % Plt Count 250 (130-400) K/uL BMP 03/12/23 03:14 Sodium 139 Potassium 4.0 Chloride 106 Carbon Dioxide 27 BUN 14 Creatinine 1.10 Glucose 140 H Calcium 8.1 L
[2023-03-12] MEDS: WARFARIN SOD 5 MG TAB PO SCH (17:14)
[2023-03-12] MEDS: DIGOXIN 0.125 MG TAB PO SCH (21:19)
[2023-03-12] MEDS: FINASTERIDE 5 MG TAB PO SCH (21:19)
[2023-03-12] MEDS: traZODone HCL 50 MG TAB PO SCH (21:19)
[2023-03-12] MEDS: ASPIRIN 81 MG ECTAB PO SCH (21:19)
[2023-03-12] MEDS: ATORVASTATIN 40 MG TAB PO SCH (21:21)
[2023-03-13] MEDS: PIPERACILLIN/TAZOBACTAM 4.5 GM in DEXTROSE 5% 100 ML IV SCH ×3 (00:56→17:09)
[2023-03-13] MEDS: HEPARIN SODIUM/DEXTROSE 25,000 UNITS/500 ML BAG IV SCH ×2 (03:51→20:26)
[2023-03-13 07:03] LABS: Hematocrit (blood only) 32.8 % (42.0-52.0); Hemoglobin 10.7 g/dl (14.0-18.0); Mean Corpuscular Hemoglobin 28.1 pg (25.0-34.0); Mean Corpuscular Hgb Conc 32.6 g/dL (32.0-36.0); Mean Corpuscular Volume 86.1 fL (80.0-100.0); Mean Platelet Volume 8.6 fL (9.4-12.4); Platelet Count 245 K/uL (130-400); RDW Coefficient of Variation 15.8 % (11.5-14.5); RDW Standard Deviation 48.9 fL (36.4-46.3); Red Blood Count 3.81 M/uL (4.70-6.10)
[2023-03-13 07:17] LABS: BUN Creatinine Ratio 12.2 (10-20); Calcium 8.6 mg/dl (8.6-10.3); Creatinine Clr Calc Pharmacy 60.2 ml/min; Est GFR (African American) 71.2 ml/min; Est GFR (Non-African American) 61.5 ml/min; Potassium 4.1 mmol/L (3.5-5.1)
[2023-03-13 07:56] LABS: INR 1.2 (0.9-1.1); Partial Thromboplastin Ratio 1.6; Prothrombin Time 12.9 Seconds (9.0-12.0)
[2023-03-13 07:58] LABS: Partial Thromboplastin Time 46.4 Seconds (21.0-31.0)
[2023-03-13] MEDS: FUROSEMIDE 40 MG TAB PO SCH ×2 (08:57→17:18)
[2023-03-13] MEDS: TERAZOSIN HCL 1 MG CAP PO SCH (08:57)
[2023-03-13] MEDS: lisinopril 2.5 MG TAB PO SCH (08:57)
[2023-03-13] MEDS: SERTRALINE HCL 50 MG TABLET PO SCH (08:57)
[2023-03-13] MEDS: AMIODARONE 200 MG TAB PO SCH (08:57)
[2023-03-13] MEDS: METOPROLOL SUCC 25MG EXT REL TAB PO SCH (08:57)
[2023-03-13] MEDS: INSULIN ASPART PER UNIT CHARGE SC SCH ×4 (09:03→20:18)
--- NOTE | 2023-03-13 09:12 | Orthopedic Progress Note ---
Date of Service March 13, 2023 Assessment & Plan (1) Encounter for post surgical wound check: Plan: Patient is postop day #2 status post bilateral great toe amputations Dressings were changed today. Incisions look well approximated no signs of infection. No intraoperative cultures obtained due to complete excision of bone and infected tissue. Clean margins intact. Pathology of bone specimen still pending at time of exam Currently on Zosyn IV antibiotics. May continue with IV antibiotic at this time and recommend transitioning to oral antibiotic for 5 to 7 days post discharge per ID recommendations Keep dressings clean and dry Continue wearing postop shoe when out of bed. Patient will be continue to be followed and will be followed in our outpatient office for suture removal Present on Admission?: Yes Admission and Anticipated Discharge Date Admission Date: March 06, 2023 Subjective Patient is a 77-year-old male who is status post bilateral great toe amputations postop day 2. He was seen this morning bedside. He is alert and oriented x3 in good spirits. He states he has no pain. Denies any increased paresthesia from baseline. He denies any drainage and reports he has been up and out of bed without any increased pain or concerns. He states he is wearing the postop shoes when he is out of bed. He denies any fever, chills, chest pain or shortness of breath. Review of Systems Review of Systems: Please refer to HPI Physical Exam Physical Exam: General: Patient is alert and oriented x3 in no acute distress. Sitting upright in bed. In good spirits and conversive. Skin: Dressings are intact. Hemovacs have since been removed. Negative for any soiling on outer dressing. These dressings were removed from bilateral feet. Both incisions are well approximated loosely. Negative for any active drainage. There is minimal drainage on dressing. Negative for erythema or maceration. Negative for any drainage negative for any eschar or necrotic tissue. Very little to no edema in bilateral feet. Area over plantar aspect of left heel area appears skin has peeled. There is no fluctuance or drainage. Incisions were cleaned with saline wipe. Dried completely. New dressing applied consisting of Xeroform 4 x 4's, gauze between toes and wrapped with Kerlix bilaterally. Musculoskeletal: The patient has intact motor function to both ankles and toes on both feet. Neurologic: Gross sensation is intact across both lower legs by soft touch however this is diminished in bilateral feet per patient this is baseline.. Results & Data Vital Signs (Past 12 Hours) Vital Signs Temp Pulse Pulse Resp BP Pulse Ox O2 Del Method 03/13/23 08:04 36.5 C 69 20 114/67 96 Room Air 03/13/23 07:43 68 03/12/23 22:04 70 03/13/23 03:22 37.0 C 70 18 110/61 98 Room Air 03/12/23 23:17 37.1 C 70 18 101/47 L 96 Room Air 03/12/23 21:19 73 Laboratory Results 03/13/23 03/13/23 03/13/23 Range/Units 07:46 06:36 06:36 WBC (4.8-10.8) K/ul RBC (4.70-6.10) M/uL Hgb (14.0-18.0) g/dl Hct (42.0-52.0) % MCV (80.0-100.0) fL MCH (25.0-34.0) pg MCHC (32.0-36.0) g/dL RDW Std Deviation (36.4-46.3) fL RDW Coeff of Ade (11.5-14.5) % Plt Count (130-400) K/uL MPV (9.4-12.4) fL PT 12.9 H (9.0-12.0) Seconds INR 1.2 H (0.9-1.1) APTT 46.4 H* (21.0-31.0) Seconds PTT Ratio 1.6 Sodium 141 (136-145) mmol/L Potassium 4.1 (3.5-5.1) mmol/L Chloride 107 (98-107) mmol/L Carbon Dioxide 30 (21-32) mmol/L Anion Gap 4 (3-11) BUN 14 (6-23) mg/dl Creatinine 1.15 (0.6-1.4) mg/dl Est Cr Clr Drug Dosing 60.2 ml/min Est GFR ( Amer) 71.2 ml/min Est GFR (Non-Af Amer) 61.5 ml/min BUN/Creatinine Ratio 12.2 (10-20) Glucose 133 H (70-99(Fasting)) mg/dl POC Glucose 146 H (70-99) mg/dl Calcium 8.6 (8.6-10.3) mg/dl 03/13/23 03/12/23 03/12/23 Range/Units 06:36 20:38 16:36 WBC 8.50 (4.8-10.8) K/ul RBC 3.81 L (4.70-6.10) M/uL Hgb 10.7 L (14.0-18.0) g/dl Hct 32.8 L (42.0-52.0) % MCV 86.1 (80.0-100.0) fL MCH 28.1 (25.0-34.0) pg MCHC 32.6 (32.0-36.0) g/dL RDW Std Deviation 48.9 H (36.4-46.3) fL RDW Coeff of Ade 15.8 H (11.5-14.5) % Plt Count 245 (130-400) K/uL MPV 8.6 L (9.4-12.4) fL PT (9.0-12.0) Seconds INR (0.9-1.1) APTT (21.0-31.0) Seconds PTT Ratio Sodium (136-145) mmol/L Potassium (3.5-5.1) mmol/L Chloride (98-107) mmol/L Carbon Dioxide (21-32) mmol/L Anion Gap (3-11) BUN (6-23) mg/dl Creatinine (0.6-1.4) mg/dl Est Cr Clr Drug Dosing ml/min Est GFR ( Amer) ml/min Est GFR (Non-Af Amer) ml/min BUN/Creatinine Ratio (10-20) Glucose (70-99(Fasting)) mg/dl POC Glucose 186 H 144 H (70-99) mg/dl Calcium (8.6-10.3) mg/dl 03/12/23 03/12/23 03/12/23 Range/Units 11:45 10:55 10:26 WBC (4.8-10.8) K/ul RBC (4.70-6.10) M/uL Hgb (14.0-18.0) g/dl Hct (42.0-52.0) % MCV (80.0-100.0) fL MCH (25.0-34.0) pg MCHC (32.0-36.0) g/dL RDW Std Deviation (36.4-46.3) fL RDW Coeff of Ade (11.5-14.5) % Plt Count (130-400) K/uL MPV (9.4-12.4) fL PT (9.0-12.0) Seconds INR (0.9-1.1) APTT 47.6 H* (21.0-31.0) Seconds PTT Ratio 1.7 Sodium (136-145) mmol/L Potassium (3.5-5.1) mmol/L Chloride (98-107) mmol/L Carbon Dioxide (21-32) mmol/L Anion Gap (3-11) BUN (6-23) mg/dl Creatinine (0.6-1.4) mg/dl Est Cr Clr Drug Dosing ml/min Est GFR ( Amer) ml/min Est GFR (Non-Af Amer) ml/min BUN/Creatinine Ratio (10-20) Glucose (70-99(Fasting)) mg/dl POC Glucose 175 H 224 H (70-99) mg/dl Calcium (8.6-10.3) mg/dl Microbiology 03/06/23 16:17 Aerobic Blood Culture - Final Blood No growth in Aerobic bottle after 5 days. Anaerobic Blood Culture - Final No growth in Anaerobic bottle after 5 days. 03/06/23 16:17 Aerobic Blood Culture - Final Blood No growth in Aerobic bottle after 5 days. Anaerobic Blood Culture - Final No growth in Anaerobic bottle after 5 days.
[2023-03-13] MEDS: LANTUS PER UNIT CHARGE SQ SCH ×2 (10:43→20:18)
[2023-03-13] MEDS: WARFARIN SOD 5 MG TAB PO SCH (17:08)
--- NOTE | 2023-03-13 18:48 | Hospitalist Progress Note ---
Date of Service March 13, 2023 Assessment & Plan (1) Osteomyelitis: Plan: Patient is 77 y/o M with PMH ischemic cardiomyopathy, a-flutter, chronic systolic and diastolic CHF, DM II, HTN, LBBB, BPH, ADOLPH and others listed below presented to ER with complaint of toe infection. Acute bilateral Big Toe Osteomyelitis-POA Left Leg Cellulitis Possible gas gangrene left big toe --Right Toe X ray:Erosive change in the medial head of the first proximal phala nx is highly suspicious for osteomyelitis. Correlate clinically. --Left Toe X ray:Areas of cortical destruction involving the proximal and distal phalanx of the left first toe consistent with osteomyelitis. Small foci of soft tissue gas seen throughout the majority of the left first toe. This is concerning for a gas-forming organism. --S/P Bilateral Big Toe Amputation by on 03/11/2023 -Blood cultures negative to date --Wound culture growing Staph aureus Empirically on Zosyn, (vancomycin discontinued) Received clindamycin in ED Appreciate orthopedics input Continue wound care Appreciate ID input No intraoperative cultures available ID recommends:Bactrim DS BID and Augmentin 875/125 BID for 6 weeks. Will need weekly BMP to monitor renal function while on antibiotics Will need follow-up with infectious disease in 4 weeks as outpatient Likely plan to discharge home tomorrow Needs follow-up with orthopedics upon discharge (2) Cellulitis of leg, left: Plan: Wound culture growing MSSA Continue Zosyn for now while hospitalized Clinically improved PAD Outpatient arterial duplex 02/23/23: RIGHT LEG: No hemodynamically significant stenosis identified in the distal external iliac, common femoral, proximal anastomosis, superficial femoral, tibioperoneal, posterior tibial, peroneal and anterior tibial arteries. >75% stenosis of distal popliteal artery. Right YEFRI is 0.98. Possible overestimated due to heavy calcified tibial arteries LEFT LEG: No hemodynamically significant stenosis identified in the distal external iliac, common femoral, proximal anastomosis, superficial femoral, tibioperoneal, posterior tibial, peroneal and anterior tibial arteries. Focal occlusion of the mid anterior tibial artery with distal reconstitution Left YEFRI is 0.95. Possibly overestimated due to heavily calcified tibial arteries --Needs vascular surgery follow-up as outpatient Continue aspirin, Lipitor (3) Ischemic cardiomyopathy: Plan: S/P ICD 06/2021 echo: EF: 20-24% Continue aspirin, atorvastatin, metoprolol succinate, Lasix No acute cardiac symptoms Monitor volume status (4) Paroxysmal atrial flutter: Plan: Coagulopathy secondary to warfarin INR: 5.6. No signs of active bleeding Held warfarin for surgery Continue amiodarone, digoxin, metoprolol succinate Currently on IV heparin Resumed Coumadin INR 1.2 today (5) Diabetes mellitus, type 2: Plan: A1c: 8.3 on 12/22/2022 Hold oral meds and insulin Basal bolus insulin per protocol (6) Hypertension: Plan: Continue lisinopril, metoprolol succinate Monitor (7) BPH (benign prostatic hyperplasia): Plan: Continue finasteride, terazosin (8) Sleep apnea: Plan: CPAP at bedtime DVT Px IV heparin Coumadin Code Status DNR/DNI Admission and Anticipated Discharge Date Admission Date: March 06, 2023 Subjective Patient is seen and examined at bedside Doing well No new complaints Denies any chest pain, shortness of breath, dizziness, nausea, abdominal pain, pain at surgical site Wound dressing changed today Discussed with orthopedics, infectious disease today Review of Systems Review of Systems: All systems reviewed & are unremarkable except as noted in Subjective Physical Exam Physical Exam: Physical Exam: Vitals signs as noted above General Appearance:Moderately built and nourished, no apparent distress Head: normocephalic, Atraumatic Eyes: normal inspection, EOMI Neck: supple, Trachea midline Respiratory/Chest: Normal breath sounds, CTA, No accessory muscle use Cardiovascular: S1, S2, No murmur, +Pacer Abdomen/GI:Soft, Non tender, Bowel sounds present Extremities/Musculoskeletal:normal inspection, B/L LE edema, +S/P B/L Toe amputation in dressing Neurologic/Psych:AAOX3, grossly no focal neurological deficits Skin: normal color, warm, Results & Data Results & Data Vital Signs (Past 12 Hours) Vital Signs Temp Pulse Pulse Resp BP Pulse Ox O2 Del Method 03/13/23 15:53 71 03/13/23 15:17 36.4 C L 69 20 112/54 L 99 Room Air 03/13/23 11:38 36.4 C L 69 20 126/68 98 Room Air 03/13/23 08:04 36.5 C 69 20 114/67 96 Room Air 03/13/23 07:43 68 Laboratory Results Short CBC 03/13/23 Range/Units 06:36 WBC 8.50 (4.8-10.8) K/ul Hgb 10.7 L (14.0-18.0) g/dl Hct 32.8 L (42.0-52.0) % Plt Count 245 (130-400) K/uL BMP 03/13/23 06:36 Sodium 141 Potassium 4.1 Chloride 107 Carbon Dioxide 30 BUN 14 Creatinine 1.15 Glucose 133 H Calcium 8.6
--- NOTE | 2023-03-13 20:01 | Electrocardiogram Report ---
Test Reason : Blood Pressure : / mmHG Vent. Rate : 070 BPM Atrial Rate : 070 BPM P-R Int : 128 ms QRS Dur : 224 ms QT Int : 558 ms P-R-T Axes : 094 112 096 degrees QTc Int : 602 ms AV dual-paced rhythm Abnormal ECG When compared with ECG of 28-FEB-2021 08:40, Vent. rate has increased BY 10 BPM Confirmed by Mg Leone ([id number] on 03/13/2023 6:12:16 PM Referred By: REFERRED SELF Confirmed By:Tony Leone
[2023-03-13] MEDS: DIGOXIN 0.125 MG TAB PO SCH (20:19)
[2023-03-13] MEDS: ATORVASTATIN 40 MG TAB PO SCH (20:19)
[2023-03-13] MEDS: traZODone HCL 50 MG TAB PO SCH (20:19)
[2023-03-13] MEDS: FINASTERIDE 5 MG TAB PO SCH (20:19)
[2023-03-13] MEDS: ASPIRIN 81 MG ECTAB PO SCH (20:19)
[2023-03-14] MEDS: PIPERACILLIN/TAZOBACTAM 4.5 GM in DEXTROSE 5% 100 ML IV SCH ×2 (01:06→08:53)
[2023-03-14 07:11] LABS: Hematocrit (blood only) 30.7 % (42.0-52.0); Hemoglobin 10.1 g/dl (14.0-18.0)
[2023-03-14 07:57] LABS: INR 1.1 (0.9-1.1); Partial Thromboplastin Ratio 1.6; Partial Thromboplastin Time 46.1 Seconds (21.0-31.0); Prothrombin Time 12.4 Seconds (9.0-12.0)
[2023-03-14] MEDS: INSULIN ASPART PER UNIT CHARGE SC SCH ×2 (08:52→12:38)
[2023-03-14] MEDS: LANTUS PER UNIT CHARGE SQ SCH (08:53)
[2023-03-14] MEDS: METOPROLOL SUCC 25MG EXT REL TAB PO SCH (08:56)
[2023-03-14] MEDS: lisinopril 2.5 MG TAB PO SCH (08:56)
[2023-03-14] MEDS: AMIODARONE 200 MG TAB PO SCH (08:56)
[2023-03-14] MEDS: TERAZOSIN HCL 1 MG CAP PO SCH (08:56)
[2023-03-14] MEDS: FUROSEMIDE 40 MG TAB PO SCH (09:30)
[2023-03-14] MEDS: SERTRALINE HCL 50 MG TABLET PO SCH (09:30)
--- NOTE | 2023-03-14 13:44 | Hospitalist Progress Note ---
Date of Service March 14, 2023 Assessment & Plan (1) Osteomyelitis: Plan: Patient is 77 y/o M with PMH ischemic cardiomyopathy, a-flutter, chronic systolic and diastolic CHF, DM II, HTN, LBBB, BPH, ADOLPH and others listed below presented to ER with complaint of toe infection. Acute bilateral Big Toe Osteomyelitis-POA Left Leg Cellulitis Possible gas gangrene left big toe --Right Toe X ray:Erosive change in the medial head of the first proximal phala nx is highly suspicious for osteomyelitis. Correlate clinically. --Left Toe X ray:Areas of cortical destruction involving the proximal and distal phalanx of the left first toe consistent with osteomyelitis. Small foci of soft tissue gas seen throughout the majority of the left first toe. This is concerning for a gas-forming organism. --S/P Bilateral Big Toe Amputation by on 03/11/2023 -Blood cultures negative to date --Wound culture growing Staph aureus Empirically on Zosyn, (vancomycin discontinued) Received clindamycin in ED Appreciate orthopedics input Continue wound care Appreciate ID input No intraoperative cultures available ID recommends:Bactrim DS BID and Augmentin 875/125 BID for 6 weeks. Will need weekly BMP to monitor renal function while on antibiotics Will need follow-up with infectious disease in 4 weeks as outpatient Needs follow-up with orthopedics upon discharge Plan to discharge home today to (2) Cellulitis of leg, left: Plan: Wound culture growing MSSA Continue Zosyn for now while hospitalized Clinically improved PAD Outpatient arterial duplex 02/23/23: RIGHT LEG: No hemodynamically significant stenosis identified in the distal external iliac, common femoral, proximal anastomosis, superficial femoral, tibioperoneal, posterior tibial, peroneal and anterior tibial arteries. >75% stenosis of distal popliteal artery. Right YEFRI is 0.98. Possible overestimated due to heavy calcified tibial arteries LEFT LEG: No hemodynamically significant stenosis identified in the distal external iliac, common femoral, proximal anastomosis, superficial femoral, tibioperoneal, posterior tibial, peroneal and anterior tibial arteries. Focal occlusion of the mid anterior tibial artery with distal reconstitution Left YEFRI is 0.95. Possibly overestimated due to heavily calcified tibial arteries --Needs vascular surgery follow-up as outpatient Continue aspirin, Lipitor (3) Ischemic cardiomyopathy: Plan: S/P ICD 06/2021 echo: EF: 20-24% Continue aspirin, atorvastatin, metoprolol succinate, Lasix No acute cardiac symptoms Monitor volume status (4) Paroxysmal atrial flutter: Plan: Coagulopathy secondary to warfarin INR: 5.6. No signs of active bleeding Held warfarin for surgery Continue amiodarone, digoxin, metoprolol succinate DC IV heparin Resumed Coumadin INR 1.1 Given being placed on Bactrim, advised to follow-up with Coumadin clinic as soon as possible for further adjustment of Coumadin dose and monitoring PT/INR (5) Diabetes mellitus, type 2: Plan: A1c: 8.3 on 12/22/2022 Hold oral meds and insulin Basal bolus insulin per protocol (6) Hypertension: Plan: Continue lisinopril, metoprolol succinate Monitor (7) BPH (benign prostatic hyperplasia): Plan: Continue finasteride, terazosin (8) Sleep apnea: Plan: CPAP at bedtime DVT Px IV heparin Coumadin Code Status DNR/DNI Disposition Home Admission and Anticipated Discharge Date Admission Date: March 06, 2023 Subjective Patient is seen and examined at bedside Offers no complaints Eager to get discharged Denies any chest pain, shortness of breath, dizziness, nausea, abdominal pain, pain at surgical site Plan to discharge home today Review of Systems Review of Systems: All systems reviewed & are unremarkable except as noted in Subjective Physical Exam Physical Exam: Physical Exam: Vitals signs as noted above General Appearance:Moderately built and nourished, no apparent distress Head: normocephalic, Atraumatic Eyes: normal inspection, EOMI Neck: supple, Trachea midline Respiratory/Chest: Normal breath sounds, CTA, No accessory muscle use Cardiovascular: S1, S2, No murmur, +Pacer Abdomen/GI:Soft, Non tender, Bowel sounds present Extremities/Musculoskeletal:normal inspection, B/L LE edema, +S/P B/L Toe amputation in dressing Neurologic/Psych:AAOX3, grossly no focal neurological deficits Skin: normal color, warm, Results & Data Results & Data Vital Signs (Past 12 Hours) Vital Signs Temp Pulse Pulse Resp BP Pulse Ox O2 Del Method 03/14/23 11:14 36.3 C L 83 18 102/61 97 Room Air 03/14/23 07:00 70 03/14/23 07:43 36.5 C 70 18 123/77 96 Room Air 03/14/23 03:38 36.9 C 69 18 114/52 L 93 Room Air 03/14/23 01:49 77 Laboratory Results Short CBC 03/14/23 Range/Units 06:49 Hgb 10.1 L (14.0-18.0) g/dl Hct 30.7 L (42.0-52.0) %
--- NOTE | 2023-03-14 14:00 | Discharge Summary ---
Date of Service March 14, 2023 Admission HPI Per Admitting Provider Patient is 77 y/o M with PMH ischemic cardiomyopathy, a-flutter, chronic systolic and diastolic CHF, DM II, HTN, LBBB, BPH, ADOLPH and others listed below presented to ER with complaint of toe infection. Patient is a known patient to Dr. Jama Macias. He was previously seen in the office on 02/20/2023 for examination of bilateral great toe wounds. He explains he has had issues with the great toe wounds for over a year however the past 3 months the wound has been coming worse and skin has been falling off. He states the left toe is worse than the right. He has a history of toe infections and had been seen previously and cared for at the wound clinic. He states the left toe is black and you can see the bone with some drainage. He states both toes have some drainage and odor from this. He has been on multiple oral antibiotics including Bactrim and doxycycline. He was planned to have surgical intervention however prior to doing this per Dr. Deal's note in our office on 02/20 he wanted him to be seen by vascular. He had seen vascular however he became septic and was seen in the emergency department and admitted. He has been since receiving IV Vanco and Zosyn. He states he is feeling better and he will be happy to get the toes taken care of. He denies any pain at this time. He states he has paresthesia in the toes and feet this is baseline for him. He is a diabetic. He has a pacemaker ICD and was seen by machine set up operator. He does report this morning about 8:10 the pacemaker did go off. He denies any shortness of breath chest pain or dizziness. He denies syncope, vision changes, neck pain, CP, SOB, orthopnea, palpitations, cough, sore throat rhinorrhea, abdominal pain, paresthesias, weakness, extremity weakness, other extremity edema, rashes, urinary symptoms. Admission Exam Per Admitting Provider General: chronic ill appearing, no distress, WDWN Head: normocephalic, atraumatic Eyes: conjunctiva non-injected, anicteric ENT: normal inspection external ears, nose, mucous membranes moist Neck: supple, trachea midline Lungs: clear, no respiratory distress, no wheezing/rhonchi/rales CV: RRR, no murmur, no pretibial edema Abd: normal BS, soft, non-tender Ext: no cyanosis, no calf tenderness Neuro: A&O x 3, no focal deficits noted, normal affect Skin: warm, dry Principal Diagnosis Acute bilateral Big Toe Osteomyelitis Left Leg Cellulitis S/PBilateral Big Toe Amputation by on 03/11/2023 Supratherapeutic INR--Resolved Discharge Data Allergies Allergy/AdvReac Type Severity Reaction Status Date / Time No Known Allergies Allergy Unknown Verified 03/06/23 17:52 Consultations 03/06/23 17:40 ED Decision to Admit Stat 03/06/23 21:40 Consult Orthopedic Surgery Routine 03/09/23 10:20 Consult Anesthesiology Routine 03/11/23 18:10 Consult Infectious Diseases Routine Procedures Performed Operation Date: 03/11/23 08:35 Actual Procedures p Bilateral Big Toe Amputation(Bilateral) - Brett Deal MD Laboratory Results WBC 8.50 K/ul (4.8-10.8) 03/13/23 06:36 RBC 3.81 M/uL (4.70-6.10) L 03/13/23 06:36 Hgb 10.1 g/dl (14.0-18.0) L 03/14/23 06:49 Hct 30.7 % (42.0-52.0) L 03/14/23 06:49 MCV 86.1 fL (80.0-100.0) 03/13/23 06:36 MCH 28.1 pg (25.0-34.0) 03/13/23 06:36 MCHC 32.6 g/dL (32.0-36.0) 03/13/23 06:36 RDW Std Deviation 48.9 fL (36.4-46.3) H 03/13/23 06:36 RDW Coeff of Ade 15.8 % (11.5-14.5) H 03/13/23 06:36 Plt Count 245 K/uL (130-400) 03/13/23 06:36 MPV 8.6 fL (9.4-12.4) L 03/13/23 06:36 Immature Gran % (Auto) 0.3 % 03/11/23 07:31 Neut % (Auto) 65.8 % 03/11/23 07:31 Lymph % (Auto) 20.3 % 03/11/23 07:31 [place] % (Auto) 7.1 % 03/11/23 07:31 Eos % (Auto) 5.6 % 03/11/23 07:31 Baso % (Auto) 0.9 % 03/11/23 07:31 Neut # (Auto) 5.01 K/uL (1.40-6.50) 03/11/23 07:31 Lymph # (Auto) 1.55 K/uL (1.2-3.4) 03/11/23 07:31 [place] # (Auto) 0.54 K/uL (0.11-0.59) 03/11/23 07:31 Eos # (Auto) 0.43 K/uL (0-0.50) 03/11/23 07:31 Baso # (Auto) 0.07 K/uL (0-0.2) 03/11/23 07:31 Immature Gran # (Auto) 0.02 K/uL (0.01-0.20) 03/11/23 07:31 ESR 100 mm/hr (0-20) H 03/06/23 17:18 PT 12.4 Seconds (9.0-12.0) H 03/14/23 06:49 INR 1.1 (0.9-1.1) 03/14/23 06:49 APTT 46.1 Seconds (21.0-31.0) H* 03/14/23 06:49 PTT Ratio 1.6 03/14/23 06:49 Sodium 141 mmol/L (136-145) 03/13/23 06:36 Potassium 4.1 mmol/L (3.5-5.1) 03/13/23 06:36 Chloride 107 mmol/L (98-107) 03/13/23 06:36 Carbon Dioxide 30 mmol/L (21-32) 03/13/23 06:36 Anion Gap 4 (3-11) 03/13/23 06:36 BUN 14 mg/dl (6-23) 03/13/23 06:36 Creatinine 1.15 mg/dl (0.6-1.4) 03/13/23 06:36 Est Cr Clr Drug Dosing 60.2 ml/min 03/13/23 06:36 Est GFR ( Amer) 71.2 ml/min 03/13/23 06:36 Est GFR (Non-Af Amer) 61.5 ml/min 03/13/23 06:36 BUN/Creatinine Ratio 12.2 (10-20) 03/13/23 06:36 Glucose 133 mg/dl (70-99(Fasting)) H 03/13/23 06:36 POC Glucose 205 mg/dl (70-99) H 03/14/23 11:33 Estimat Average Glucose 197 mg/dl 03/07/23 06:25 Hemoglobin A1c 8.5 % (4.5-5.6) H 03/07/23 06:25 Lactate 1.4 mmol/L (0.4-2.0) 03/06/23 16:28 Calcium 8.6 mg/dl (8.6-10.3) 03/13/23 06:36 Total Bilirubin 0.5 mg/dl (0.2-1.0) 03/06/23 16:17 AST 16 U/L (13-39) 03/06/23 16:17 ALT 16 U/L (7-52) 03/06/23 16:17 Alkaline Phosphatase 83 U/L (34-104) 03/06/23 16:17 C-Reactive Protein 10.03 mg/dl (0-0.5) H 03/06/23 16:17 Total Protein 7.9 gm/dl (6.0-8.3) 03/06/23 16:17 Albumin 3.6 gm/dl (3.4-5.0) 03/06/23 16:17 Globulin 4.3 gm/dl (2.5-4.0) H 03/06/23 16:17 Albumin/Globulin Ratio 0.8 (0.9-2) L 03/06/23 16:17 Nasal Screen MRSA (PCR) Negative (Negative) 03/06/23 17:15 Random Vancomycin 15.1 mcg/ml (10-20) 03/08/23 11:45 Digoxin 0.6 ng/ml (0.8-2.0) L 03/06/23 17:18 SARS-CoV-2, RNA, NAAT NEGATIVE (NEGATIVE) 03/06/23 17:15 Impressions Toe X-Ray 03/11/23 08:35 FL toe RT 2V CLINICAL HISTORY: Right great toe amputation. COMPARISON STUDY: 03/06/2023. FLUOROSCOPY TIME: 9 seconds FLUOROSCOPY IMAGES: 1 Ka,r: 0.2 mGy FINDINGS: Amputation of the right first toe at the level of the mid shaft of the first metatarsal. IMPRESSION: Fluoroscopic assistance as above. ACT 112: Negative or not required by law. Electronically signed by: Juan Soto M.D. 03/11/2023 11:58 AM Ordered Studies 03/11/23 08:35 FL toe LT 2V Routine FL toe RT 2V Routine Hospital Course (1) Osteomyelitis: Patient is 77 y/o M with PMH ischemic cardiomyopathy, a-flutter, chronic systolic and diastolic CHF, DM II, HTN, LBBB, BPH, ADOLPH and others listed below presented to ER with complaint of toe infection. Acute bilateral Big Toe Osteomyelitis-POA Left Leg Cellulitis Possible gas gangrene left big toe --Right Toe X ray:Erosive change in the medial head of the first proximal phalanx is highly suspicious for osteomyelitis. Correlate clinically. --Left Toe X ray:Areas of cortical destruction involving the proximal and distal phalanx of the left first toe consistent with osteomyelitis. Small foci of soft tissue gas seen throughout the majority of the left first toe. This is concerning for a gas-forming organism. --S/P Bilateral Big Toe Amputation by on 03/11/2023 -Blood cultures negative to date --Wound culture growing Staph aureus Empirically on Zosyn, (vancomycin discontinued) Received clindamycin in ED Appreciate orthopedics input Continue wound care Appreciate ID input No intraoperative cultures available ID recommends:Bactrim DS BID and Augmentin 875/125 BID for 6 weeks. Will need weekly BMP to monitor renal function while on antibiotics Will need follow-up with infectious disease in 4 weeks as outpatient Needs follow-up with orthopedics upon discharge Plan to discharge home today to (2) Cellulitis of leg, left: Wound culture growing MSSA Continue Zosyn for now while hospitalized Clinically improved PAD Outpatient arterial duplex 02/23/23: RIGHT LEG: No hemodynamically significant stenosis identified in the distal external iliac, common femoral, proximal anastomosis, superficial femoral, tibioperoneal, posterior tibial, peroneal and anterior tibial arteries. >75% stenosis of distal popliteal artery. Right YEFRI is 0.98. Possible overestimated due to heavy calcified tibial arteries LEFT LEG: No hemodynamically significant stenosis identified in the distal external iliac, common femoral, proximal anastomosis, superficial femoral, tibioperoneal, posterior tibial, peroneal and anterior tibial arteries. Focal occlusion of the mid anterior tibial artery with distal reconstitution Left YEFRI is 0.95. Possibly overestimated due to heavily calcified tibial arteries --Needs vascular surgery follow-up as outpatient Continue aspirin, Lipitor (3) Ischemic cardiomyopathy: S/P ICD 06/2021 echo: EF: 20-24% Continue aspirin, atorvastatin, metoprolol succinate, Lasix No acute cardiac symptoms Monitor volume status (4) Paroxysmal atrial flutter: Coagulopathy secondary to warfarin INR: 5.6. No signs of active bleeding Held warfarin for surgery Continue amiodarone, digoxin, metoprolol succinate DC IV heparin Resumed Coumadin INR 1.1 Given being placed on Bactrim, advised to follow-up with Coumadin clinic as soon as possible for further adjustment of Coumadin dose and monitoring PT/INR (5) Diabetes mellitus, type 2: A1c: 8.3 on 12/22/2022 Hold oral meds and insulin Basal bolus insulin per protocol (6) Hypertension: Continue lisinopril, metoprolol succinate Monitor (7) BPH (benign prostatic hyperplasia): Continue finasteride, terazosin (8) Sleep apnea: CPAP at bedtime DVT Px IV heparin Coumadin Code Status DNR/DNI Disposition Home Total Time Total Time Spent Total Time Spent (In Minutes): 65 minutes Discharge Plan Discharge Items Patient Disposition: Home - Self-Care Reason For Visit: OSTEOMYELITIS Discharge Diagnosis: Acute bilateral Big Toe Osteomyelitis Left Leg Cellulitis S/PBilateral Big Toe Amputation by on 03/11/2023 Supratherapeutic INR--Resolved Activity: Per Instructions section Non-emergency contact: Primary Care Provider, Surgeon and Specialist Call non-emergency contact if: you have any medication questions, your symptoms worsen, your pain is concerning for you, your wound has increased redness, your wound has increased drainage and your wound pain has increased Follow-up/Referrals: Melissa Williamson PA-C [Physician Dairy Powder Mixer Operator] - 03/17/23 1:00 pm Beth Mcginnis DO [Primary Care Provider] - (Date & Time 03/20/2023 10:50 AM Provider Beth Mcginnis DO Department [facility] ) Diet: Carb Consistent or DM2 and Heart Healthy [facility] Attending Provider Instructions: Follow-up with your primary care physician on 03/20/2023 10:50 AM Follow-up with your orthopedic surgeon Melissa Williamson on 03/17/2023 at 1 PM as scheduled Follow-up with your infectious disease in 4 weeks as advised -- Follow-up with Coumadin clinic in 2 to 3 days for monitoring of PT/INR and adjusting your Coumadin dose as advised. -- Obtain blood test PT/INR on 03/16/2023 and follow-up with Coumadin clinic as advised. --Get blood test (basic metabolic panel) every week until completion of antibiotics as recommended by your infectious disease physician. Follow-up with your primary care physician for further assistance. -- Complete antibiotic course Bactrim DS twice a day and Augmentin 875/125 mg twice a day for 6 weeks as recommended by your infectious disease doctor. Seek immediate medical attention if your symptoms reoccur or worsen Please take all medications as instructed on discharge list below. Please call if you have any questions or problems. You can reach a [facility] hospitalist on duty at [facility] [address] 24 hours a day by calling [phone] [facility] Machine Tracer Provider Instructions: keep dressings intact dry and clean WBAT in post op shoes Elevate legs daily to avoid swelling Follow up in our office if not scheduled call [phone] Call with any questions or concerns or any changes in your symptoms. Pending Studies at Discharge: No Stand-Alone Forms: My [facility], Smoking Cessation Medications and DC Order Prescriptions: New sulfamethoxazole-trimethoprim [Bactrim DS] 800-160 mg tablet 1 tab PO BID 42 Days Qty: 84 0RF amoxicillin-pot clavulanate 875-125 mg tablet 1 tab PO BID 42 Days Qty: 84 0RF Continued furosemide [Lasix] 40 mg Tablet 40 mg PO BID atorvastatin 80 mg Tablet 80 mg PO HS metoprolol succinate 50 mg Tablet Extended Release 24 Hr 25 mg PO QAM warfarin 10 mg Tablet 10 mg PO DIRECTED Rx Instructions: 5mg on Mon, Wed, Fri. 10mg sun, tue, thur, sat Novolin 70/30 U-100 Insulin 100 unit/mL (70-30) Suspension 20 unit SUBCUT QAM metformin 1,000 mg Tablet 1,000 mg PO BID sertraline 25 mg Tablet 25 mg PO QAM Patient Comments: with 50mg to equal 75mg in am sertraline 50 mg Tablet 50 mg PO QAM lisinopril 2.5 mg Tablet 2.5 mg PO QAM finasteride 5 mg Tablet 5 mg PO HS omega-3 fatty acids Capsule 1,000 mg PO BID PreserVision AREDS-2 [phone] dm-lvcc-vi-mg Capsule 1 tab PO BID nitroglycerin 0.4 mg Tablet, Sublingual 0.4 mg sublingual UD PRN (Reason: Angina) amiodarone 200 mg Tablet 200 mg PO QAM digoxin 125 mcg (0.125 mg) Tablet 125 mcg PO PM trazodone 50 mg tablet 50 mg PO HS tramadol 50 mg tablet 50 mg PO Q8 PRN (Reason: Pain) terazosin 2 mg capsule 2 mg PO DAILY aspirin [Baby Aspirin] 81 mg Tablet,Chewable 81 mg PO PM Jardiance 10 mg tablet 10 mg PO QAM Ozempic 1 mg/dose (4 mg/3 mL) pen injector 1 mg SUBCUT WE Rx Instructions: IS ON BACK ORDER @ PHARMACY, HAS HAD NINE FOR 2 WEEKS. Discharge Orders: Discharge Order (Routine); Ordered 03/14/23 Ordered By: Nilson Lock/Other Patient Handouts: Managing Type 2 Diabetes, Special Foot Care for Diabetes Admission Data Admit Date/Time: 03/06/23 18:08 Attending Provider: Nilson Acharya Admit Provider: Elena Hogan Primary Care Provider: Beth Mcginnis Other Providers: Elena Hogan ; Brett Deal ; Du Garcia ; Antoine Broussard ; Jose Desouza ; Sancho Rock I. ; Rudy Hall II ; Norah Conteh ; Carlos Leahy ; Douglas Magana ; Leyla Alcantar
== END 2023-03-14 15:00 | disposition home or self-care (01) | DRG 616 ==
LOC: ED 13:56 → SUATTDRO 18:08 → EDINP 18:08 → 2N 18:35

== ENCOUNTER 2023-08-10 01:28 | Inpatient (IN) ==
[2023-08-10] MEDS ORDERED: ONDANSETRON INJ 2 MG/ML 2 ML VIAL ONE (01:35)
--- NOTE | 2023-08-10 01:58 | Emergency Department Note ---
Impression & Plan Ventricular tachycardia, Syncope Admit to the [facility] ED Provider Note NAME: SHANNON MARCELINO AGE: 77 SEX: M ARRIVES VIA: Ambulance INFORMANT: Patient and his ED PROVIDER(S): Gila Cali DO CHIEF COMPLAINT: Syncope PLAN: Disposition: Admit to the [facility] Condition: Guarded MEDICAL DECISION MAKING: This is a 77-year-old male patient who presents to the emergency department after 2 separate episodes of syncope. EKG on presentation shows his paced rhythm. We were able to interrogate his pacer defibrillator which did reveal he had 2 distinct episodes of sustained ventricular tachycardia. One occurred prior to him calling 911 tonight and the other occurred on consistent with his other episode of syncope. The [employer] home office representative explains that his defibrillator pacer has the defibrillation functionality turned off for sensing ventricular tachycardia. Laboratory studies revealed a mild anemia but no leukocytosis. The patient's INR is currently 3.4. He is hyperglycemic with a glucose of 249. Patient's troponin was 2007. He has mild transaminitis and an elevated TSH. Chest x-ray was performed and was unremarkable. Patient was kept on the property assessment monitor here in the emergency department. He had no further signs of cardiac dysrhythmia here in the ER. [facility] for further [facility] care and cardiology evaluation. Triage Nursing notes reviewed and agree with them. Additional history obtained from the is at the bedside External medical records reviewed including previous admissions to the hospital Vital Signs: reviewed and unremarkable. Differential diagnosis: Dehydration, cardiac dysrhythmia, cardiac ischemia, anemia Diagnostics interpreted by me: ECG: AV dual paced rhythm at a rate of [address] segment elevation or signs of ischemia. There is no ectopy. Cardiac Monitoring: Paced rhythm at a rate of 70 Laboratory studies: See below Consultation(s): [employer]-pacer defibrillator was interrogated and revealed to sustained runs of ventricular tachycardia. One occurred prior to the patient's arrival here in the emergency department and one on afternoon which coincided with his description of severe diaphoresis and syncope on that day. HPI: 77/M arrives for evaluation of syncope. Patient explains that tonight, he stood up out of his chair as he was feeling nauseated and the next he remembers is he was being woken up on the floor of the bathroom. He had vomited everywhere and remained nauseated. He had a similar episode 4 days ago. The patient had been chopping wood in his yard when he became significantly nauseated, had extreme diaphoresis and then passed out for an extended period of time. Following this episode, he had extreme weakness and diaphoresis. This finally resolved. PAST MEDICAL HISTORY:See Below PAST SURGICAL HISTORY:See Below FAMILY HISTORY:See Below SOCIAL HISTORY:See Below HOME MEDICATIONS:See list ALLERGIES see list VITALS:See Below PHYSICAL EXAMINATION: HEENT: Head - normocephalic and atraumatic. Pupils are equal, round, and reactive to light. Extraocular eye muscles are intact, and sclera are anicteric. Nose - moist nasal mucosa without discharge. Mouth - moist buccal mucosa. Oropharynx is nonerythematous and there is no tonsillar exudate or edema noted. Neck: Supple; no cervical lymphadenopathy noted Heart: Regular rate and rhythm. There is a normal S1 and S2 with no murmurs, clicks, or gallops appreciated. Lungs: Clear to auscultation bilaterally with no wheezes, rales, or rhonchi. Abdomen: Soft, completely nontender, nondistended, with good bowel sounds. There are no palpable pulsatile masses or hepatosplenomegaly. There is no guarding, rigidity, or rebound noted. Extremities: No evidence of cyanosis, clubbing, or edema. There are easily palpable peripheral pulses. Skin: warm and dry with good turgor and no rashes. ED COURSE: Times/Reassessments: 135 patient was evaluated in room A-10. A complete history and physical was performed. An order was placed for continuous cardiac monitoring. The patient is in a paced rhythm at a rate of 70. Laboratory studies were drawn as above. Twelve-lead EKG was obtained as described above. The patient's pacer/defibrillator was interrogated. I discussed the case with the [facility] Hospitalist and they will evaluate for further inpatient care. Gila Cali DO Past Med/Surg History Medical History Anxiety Apical mural thrombus History of- on chronic Coumadin BPH (benign prostatic hyperplasia) CAD (coronary artery disease) S/p 3 vessel bypass 1997 Chronic systolic CHF (congestive heart failure) Severe LV dysfunction Depression Diabetes mellitus, type 2 Hyperlipidemia Hypertension ICD (implantable cardioverter-defibrillator) in place Biventricular ICD upgrade 08/2020 [employer]- h/o ICD discharge 10/2020 x 2 per 01/2021 ICD check Ischemic cardiomyopathy EF= 13% on 10/2020 stress test LBBB (left bundle branch block) Follows with cardio Myocardial Infarction x3--last 1997--follows with Dr. Bang Mcginnis On anticoagulant therapy warfarin daily Paroxysmal atrial flutter Sleep apnea cpap Surgical History History of appendectomy History of bilateral cataract extraction History of cardiac cath x1--1997 @ [facility] [place]--no stents, had CABG History of carpal tunnel surgery of right wrist History of colonoscopy History of implantable cardioverter-defibrillator (ICD) placement inserted 01/2007, replaced 02/2016, upgraded to BiV ICD on 09/19/20--[employer] History of surgery left leg vein removed for bypass History of tonsillectomy and adenoidectomy S/P triple vessel bypass @ [facility] [place] 1997 Family History Other No family history of adverse response to anesthesia Social History Smoking Status: Former smoker Tobacco Type: Cigarettes Second Hand Exposure: No; Do You Dip or Chew Tobacco: Yes; Hx Alcohol Use: Yes Alcohol type: beer Hx Substance Use: No Preferred Language: Guinean Communication Ability: Effective Truck Driving Required: No Beliefs That Will Affect Care: None Current Living Situation: Spouse Feels Safe at Home: Yes Assistive Devices: Cane Allergies Allergies Allergy/AdvReac Type Severity Reaction Status Date / Time No Known Allergies Allergy Unknown Verified 05/06/23 09:29 Home Meds Home Medications Medication Instructions Recorded Confirmed PreserVision AREDS-2 1 tab PO BID 08/10/23 08/10/23 amiodarone 200 mg tablet 200 mg PO DAILY 08/10/23 08/10/23 aspirin 81 mg tablet,delayed 81 mg PO DAILY 08/10/23 08/10/23 release atorvastatin 80 mg tablet 80 mg PO DAILY 08/10/23 08/10/23 digoxin 125 mcg (0.125 mg) tablet 125 mcg PO DAILY 08/10/23 08/10/23 empagliflozin 10 mg tablet 10 mg PO DAILY 08/10/23 08/10/23 (Jardiance) finasteride 5 mg tablet 5 mg PO DAILY 08/10/23 08/10/23 furosemide 40 mg tablet 40 mg PO BID 08/10/23 08/10/23 lisinopril 2.5 mg tablet 2.5 mg PO DAILY 08/10/23 08/10/23 metformin 1,000 mg tablet 1,000 mg PO BID 08/10/23 08/10/23 metoprolol succinate 50 mg 25 mg PO DAILY 08/10/23 08/10/23 tablet,extended release 24 hr semaglutide 1 mg/dose (4 mg/3 mL) 1 mg subcut WK 08/10/23 08/10/23 subcutaneous pen injector (Ozempic) sertraline 50 mg tablet 50 mg PO DAILY 08/10/23 08/10/23 terazosin 2 mg capsule 2 mg PO DAILY 08/10/23 08/10/23 trazodone 50 mg tablet 50 mg PO HS 08/10/23 08/10/23 warfarin 10 mg tablet 5 mg PO UD 08/10/23 08/10/23 Results & Data (ED) Vital Signs Vital Signs - 24 hr 08/10/23 01:35 08/10/23 01:37 08/10/23 01:58 Temperature 36.4 C L Temperature Source Oral Pulse Rate - Lying 71 Pulse Rate - Sitting 73 Pulse Rate - Standing 77 Pulse Rate 87 88 Pulse Rate [Finger] Respiratory Rate 18 Blood Pressure - Lying 107/54 L Blood Pressure - Sitting 108/56 L Blood Pressure- Standing 97/52 L Blood Pressure 115/69 Blood Pressure [Right Arm] Blood Pressure Mean 84 Blood Pressure Mean [Right Arm] Pulse Oximetry 97 Oxygen Delivery Method Room Air Sepsis Recent Fever Within 48 Hours No Sepsis New/Unexplained Change in Mental Status No Sepsis Action Taken by Nursing No Action Required 08/10/23 04:00 Temperature Temperature Source Pulse Rate - Lying Pulse Rate - Sitting Pulse Rate - Standing Pulse Rate Pulse Rate [Finger] 67 Respiratory Rate 18 Blood Pressure - Lying Blood Pressure - Sitting Blood Pressure- Standing Blood Pressure Blood Pressure [Right Arm] 109/87 Blood Pressure Mean Blood Pressure Mean [Right Arm] 94 Pulse Oximetry 97 Oxygen Delivery Method Room Air Sepsis Recent Fever Within 48 Hours Sepsis New/Unexplained Change in Mental Status Sepsis Action Taken by Nursing Laboratory Data 08/10/23 01:37 08/10/23 01:37 Lab Results 08/10/23 08/10/23 08/10/23 Range/Units 01:37 01:37 01:37 WBC 7.05 (4.8-10.8) K/ul RBC 4.81 (4.70-6.10) M/uL Hgb 13.7 L (14.0-18.0) g/dl Hct 41.3 L (42.0-52.0) % MCV 85.9 (80.0-100.0) fL MCH 28.5 (25.0-34.0) pg MCHC 33.2 (32.0-36.0) g/dL RDW Std Deviation 46.8 H (36.4-46.3) fL RDW Coeff of Ade 14.7 H (11.5-14.5) % Plt Count 219 (130-400) K/uL MPV 9.7 (9.4-12.4) fL Immature Gran % (Auto) 0.1 % Neut % (Auto) 63.4 % Lymph % (Auto) 23.5 % [place] % (Auto) 7.7 % Eos % (Auto) 4.3 % Baso % (Auto) 1.0 % Neut # (Auto) 4.47 (1.40-6.50) K/uL Lymph # (Auto) 1.66 (1.20-3.40) K/uL [place] # (Auto) 0.54 (0.11-0.59) K/uL Eos # (Auto) 0.30 (0.00-0.50) K/uL Baso # (Auto) 0.07 (0.00-0.20) K/uL Immature Gran # (Auto) 0.01 (0.01-0.20) K/uL PT 34.5 H (9.0-12.0) Seconds INR 3.4 H (0.9-1.1) Sodium 137 (136-145) mmol/L Potassium 3.7 (3.5-5.1) mmol/L Chloride 98 (98-107) mmol/L Carbon Dioxide 25 (21-32) mmol/L Anion Gap 14 H (3-11) BUN 23 (6-23) mg/dl Creatinine 1.38 (0.6-1.4) mg/dl Est Cr Clr Drug Dosing Not Reportable Est GFR ( Amer) 57.2 ml/min Est GFR (Non-Af Amer) 49.3 ml/min BUN/Creatinine Ratio 16.7 (10-20) Glucose 249 H (70-99(Fasting)) mg/dl Calcium 9.6 (8.6-10.3) mg/dl Phosphorus 3.2 (2.5-4.9) mg/dl Magnesium 1.8 (1.7-2.4) mg/dl Total Bilirubin 0.5 (0.2-1.0) mg/dl AST 71 H (13-39) U/L ALT 58 H (7-52) U/L Alkaline Phosphatase 126 H (34-104) U/L Troponin I High Sens 2007.9 H* (0-20) pg/ml Total Protein 8.0 (6.0-8.3) gm/dl Albumin 4.4 (3.4-5.0) gm/dl Globulin 3.6 (2.5-4.0) gm/dl Albumin/Globulin Ratio 1.2 (0.9-2) TSH 5.423 H (0.300-4.500) uIu/ml Free T4 1.10 (0.61-1.60) ng/dl 08/10/23 Range/Units 03:48 WBC (4.8-10.8) K/ul RBC (4.70-6.10) M/uL Hgb (14.0-18.0) g/dl Hct (42.0-52.0) % MCV (80.0-100.0) fL MCH (25.0-34.0) pg MCHC (32.0-36.0) g/dL RDW Std Deviation (36.4-46.3) fL RDW Coeff of Ade (11.5-14.5) % Plt Count (130-400) K/uL MPV (9.4-12.4) fL Immature Gran % (Auto) % Neut % (Auto) % Lymph % (Auto) % [place] % (Auto) % Eos % (Auto) % Baso % (Auto) % Neut # (Auto) (1.40-6.50) K/uL Lymph # (Auto) (1.20-3.40) K/uL [place] # (Auto) (0.11-0.59) K/uL Eos # (Auto) (0.00-0.50) K/uL Baso # (Auto) (0.00-0.20) K/uL Immature Gran # (Auto) (0.01-0.20) K/uL PT (9.0-12.0) Seconds INR (0.9-1.1) Sodium (136-145) mmol/L Potassium (3.5-5.1) mmol/L Chloride (98-107) mmol/L Carbon Dioxide (21-32) mmol/L Anion Gap (3-11) BUN (6-23) mg/dl Creatinine (0.6-1.4) mg/dl Est Cr Clr Drug Dosing Est GFR ( Amer) ml/min Est GFR (Non-Af Amer) ml/min BUN/Creatinine Ratio (10-20) Glucose (70-99(Fasting)) mg/dl Calcium (8.6-10.3) mg/dl Phosphorus (2.5-4.9) mg/dl Magnesium (1.7-2.4) mg/dl Total Bilirubin (0.2-1.0) mg/dl AST (13-39) U/L ALT (7-52) U/L Alkaline Phosphatase (34-104) U/L Troponin I High Sens 1424.2 H* D (0-20) pg/ml Total Protein (6.0-8.3) gm/dl Albumin (3.4-5.0) gm/dl Globulin (2.5-4.0) gm/dl Albumin/Globulin Ratio (0.9-2) TSH (0.300-4.500) uIu/ml Free T4 (0.61-1.60) ng/dl Administered Medications Insulin Aspart (Insulin Aspart Per Unit Charge) 0 units SC Q4 [facility] Stop: 09/09/23 05:30 Last Admin: 08/10/23 05:54 Dose: Not Given Documented By: PARESH Co-signed By: AW Discontinued Medications Ondansetron HCl (Ondansetron Inj 2 Mg/Ml 2 Ml Vial) Confirm Administered Dose 4 mg .ROUTE .STK-MED ONE Stop: 08/10/23 01:36 Last Admin: 08/10/23 01:47 Dose: Not Given Documented By: SW Discharge Plan Visit Data Chief Complaint: Syncope Stated Complaint: syncopal/fall ED Provider: Gila Cali Discharge Problem: Ventricular tachycardia, Syncope Patient Disposition: Admitted As Inpatient Discharge Instructions Interventions: ED Discharge Assessment Last Done: 08/10/23 05:32
[2023-08-10 02:13] LABS: Basophils # (auto) 0.07 K/uL (0.00-0.20); Eosinophils % (auto) 4.3 %; Hematocrit (blood only) 41.3 % (42.0-52.0); Hemoglobin 13.7 g/dl (14.0-18.0); Immature Granulocytes # (auto) 0.01 K/uL (0.01-0.20); Immature Granulocytes % (auto) 0.1 %; Lymphocytes # (auto) 1.66 K/uL (1.20-3.40); Lymphocytes % (auto) 23.5 %; Mean Corpuscular Hemoglobin 28.5 pg (25.0-34.0); Mean Corpuscular Hgb Conc 33.2 g/dL (32.0-36.0); Mean Corpuscular Volume 85.9 fL (80.0-100.0); Mean Platelet Volume 9.7 fL (9.4-12.4); Monocytes # (auto) 0.54 K/uL (0.11-0.59); Monocytes % (auto) 7.7 %; Neutrophils # (auto) 4.47 K/uL (1.40-6.50); Neutrophils % (auto) 63.4 %; Platelet Count 219 K/uL (130-400); RDW Coefficient of Variation 14.7 % (11.5-14.5); RDW Standard Deviation 46.8 fL (36.4-46.3); Red Blood Count 4.81 M/uL (4.70-6.10); White Blood Count 7.05 K/ul (4.8-10.8)
[2023-08-10 02:15] LABS: Alanine Aminotransferase 58 U/L (7-52); Albumin Globulin Ratio 1.2 (0.9-2); Albumin Level 4.4 gm/dl (3.4-5.0); Alkaline Phosphatase 126 U/L (34-104); Anion Gap 14 (3-11); Aspartate Aminotransferase 71 U/L (13-39); BUN Creatinine Ratio 16.7 (10-20); Bilirubin,Total 0.5 mg/dl (0.2-1.0); Blood Urea Nitrogen 23 mg/dl (6-23); Calcium 9.6 mg/dl (8.6-10.3); Carbon Dioxide 25 mmol/L (21-32); Chloride 98 mmol/L (98-107); Est GFR (African American) 57.2 ml/min; Est GFR (Non-African American) 49.3 ml/min; Globulin 3.6 gm/dl (2.5-4.0); Glucose 249 mg/dl (70-99(Fasting)); Magnesium 1.8 mg/dl (1.7-2.4); Potassium 3.7 mmol/L (3.5-5.1); Sodium 137 mmol/L (136-145)
[2023-08-10 02:32] LABS: Thyroid Stimulating Hormone 5.423 uIu/ml (0.300-4.500)
[2023-08-10 02:37] LABS: INR 3.4 (0.9-1.1); Prothrombin Time 34.5 Seconds (9.0-12.0)
[2023-08-10 02:48] LABS: Phosphorus 3.2 mg/dl (2.5-4.9)
--- NOTE | 2023-08-10 04:53 | History & Physical Report ---
Date of Service August 10, 2023 Assessment & Plan (1) Syncope and collapse: Plan: 77-year-old male with past medical significant for type 2 diabetes, diabetic retinopathy, hyperlipidemia, chronic systolic and diastolic CHF, EF 22% last echo 07/07/2023, s/p BiV ICD, hx of VT/VF s/p ICD shock in 2002,atypical atrial flutter, s/p AV emely ablation, CAD s/p CABG,hypertension, left bundle branch block, history of sinus bradycardia, Hx of LV apical thrombus on Coumadin since BPH, low back pain, depression, presents with syncope. ICD interrogation found to have V. tach. Also having elevated troponins Syncope and V. tach Also had presyncopal episode last ICD interrogation showed V. tach both times. ICD functionality of V. tach was turned off as per [employer] Patient currently asymptomatic Denies any chest pain during the episode Currently hemodynamically stable Close monitoring telemetry Serial cardiac enzymes and echocardiogram Cardiac consult Non-ST elevated NH Troponin 2006 on presentation Trended down to 1424 Patient currently asymptomatic patient on Coumadin INR is 3.4 We will follow serial enzymes and echo npo Cardiac consult History of chronic systolic and diastolic CHF EF 22% echo done in 07/07/2023 On Lasix , metoprolol succinate, lisinopril and digoxin Will monitor for volume overload S/p ICD. History of ICD shock in 2002 for VT/V-fib History of apical mural thrombus on Coumadin since A flutter On amiodarone ,digoxin, metoprolol and Coumadin INR 3.4. We will hold Coumadin for now We will monitor INR Diabetes Hold Jardiance and metformin On Tresiba 10 units daily and Ozempic weekly We will place on sliding scale, continue Tresiba Monitor sugars while npo We will follow blood sugars and HbA1c levels Hypertension On lisinopril, metoprolol succinate, terazosin, and Lasix We will monitor BPH On Proscar and terazosin Sleep apnea CPAP nightly DVT prophylaxis INR 3.4 Dis[address] telemetry floor Full code History of Present Illness Chief Complaint: Syncope Primary Care Provider: Beth Mcginnis, 77-year-old male with past medical significant for type 2 diabetes, diabetic retinopathy, hyperlipidemia, chronic systolic and diastolic CHF, EF 22% last echo 07/07/2023, s/p BiV ICD, hx of VT/VF s/p ICD shock in 2002,atypical atrial flutter, s/p AV emely ablation, CAD s/p CABG,hypertension, left bundle branch block, history of sinus bradycardia, Hx of LV apical thrombus on Coumadin since BPH, low back pain, depression, presents with syncope. Patient was sitting in his bed when suddenly felt discomfort in his stomach and he went to bathroom he felt dizzy and he passed out. When he woke up he found himself on the floor of the bathroom. Was profusely sweating and was nauseous and vomiting. He could not get up. his came in put on oxygen and after some time slowly start feeling better. Denies any chest pain. Similar episode happened last when he was splitting the wood he felt dizzy he went and sat on the chair. At that time he did not pass out but was profusely sweating and feeling uncomfortable. At that time also used oxygen which helped. Both episode lasted about hour. No bowel or bladder incontinence during the episode and no biting of the tongue. Currently is feeling better. Denies any headache. No runny nose or sore throat or cough. Appetite is okay. No difficulty swallowing. No shortness of breath. Currently no abdominal pain. Normal bowel and bladder movements as per patient. Currently resting comfortably and hemodynamically stable. His defibrillator was interrogated and found to have V. tach in both episodes. Defibrillators functionality for V. tach seems to be turned off for unknown reasons as per the [employer]. Past medical history as mentioned above Past surgical history. CABG, carpal tunnel surgery, colonoscopy, ablation of SVT, cardioversion, [employer] defibrillator, appendectomy, tonsillectomy, varicocele excision. Social history . Quit smoking in 1997. Currently chews tobacco. Alcohol occasional. No drug use Family history. Father had liver cancer. Mother had of lung cancer. Mother had NH and hypertension. Sister had breast cancer. Brother has diabetes. Allergies Allergy/AdvReac Type Severity Reaction Status Date / Time No Known Allergies Allergy Unknown Verified 05/06/23 09:29 Home Medications Medication Instructions Recorded Confirmed Type PreserVision AREDS-2 1 tab PO BID 08/10/23 08/10/23 History amiodarone 200 mg tablet 200 mg PO DAILY 08/10/23 08/10/23 History aspirin 81 mg tablet,delayed 81 mg PO DAILY 08/10/23 08/10/23 History release atorvastatin 80 mg tablet 80 mg PO DAILY 08/10/23 08/10/23 History digoxin 125 mcg (0.125 mg) tablet 125 mcg PO DAILY 08/10/23 08/10/23 History empagliflozin 10 mg tablet 10 mg PO DAILY 08/10/23 08/10/23 History (Jardiance) finasteride 5 mg tablet 5 mg PO DAILY 08/10/23 08/10/23 History furosemide 40 mg tablet 40 mg PO BID 08/10/23 08/10/23 History insulin degludec 100 unit/mL (3 10 unit subcut DAILY 08/10/23 08/10/23 History mL) subcutaneous pen (Vigosiba FlexTouch U-100 insulin) lisinopril 2.5 mg tablet 2.5 mg PO DAILY 08/10/23 08/10/23 History metformin 1,000 mg tablet 1,000 mg PO BID 08/10/23 08/10/23 History metoprolol succinate 50 mg 25 mg PO DAILY 08/10/23 08/10/23 History tablet,extended release 24 hr semaglutide 1 mg/dose (4 mg/3 mL) 1 mg subcut WK 08/10/23 08/10/23 History subcutaneous pen injector (Ozempic) sertraline 50 mg tablet 50 mg PO DAILY 08/10/23 08/10/23 History terazosin 2 mg capsule 2 mg PO DAILY 08/10/23 08/10/23 History trazodone 50 mg tablet 50 mg PO HS 08/10/23 08/10/23 History warfarin 10 mg tablet 5 mg PO UD 08/10/23 08/10/23 History Past Med/Surg History Medical History Anxiety Apical mural thrombus History of- on chronic Coumadin BPH (benign prostatic hyperplasia) CAD (coronary artery disease) S/p 3 vessel bypass 1997 Chronic systolic CHF (congestive heart failure) Severe LV dysfunction Depression Diabetes mellitus, type 2 Hyperlipidemia Hypertension ICD (implantable cardioverter-defibrillator) in place Biventricular ICD upgrade 08/2020 [employer]- h/o ICD discharge 10/2020 x 2 per 01/2021 ICD check Ischemic cardiomyopathy EF= 13% on 10/2020 stress test LBBB (left bundle branch block) Follows with cardio Myocardial Infarction x3--last 1997--follows with Dr. Bang Mcginnis On anticoagulant therapy warfarin daily Paroxysmal atrial flutter Sleep apnea cpap Surgical History History of appendectomy History of bilateral cataract extraction History of cardiac cath x1--1997 @ [facility] [place]no stents, had CABG History of carpal tunnel surgery of right wrist History of colonoscopy History of implantable cardioverter-defibrillator (ICD) placement inserted 01/2007, replaced 02/2016, upgraded to BiV ICD on 09/19/20--[employer] History of surgery left leg vein removed for bypass History of tonsillectomy and adenoidectomy S/P triple vessel bypass @ [facility] [place] 1997 Family History Other No family history of adverse response to anesthesia Social History Smoking Status: Former smoker Tobacco Type: Cigarettes Second Hand Exposure: No; Do You Dip or Chew Tobacco: Yes; Tobacco Cessation Education Requested by Patient: No Hx Alcohol Use: Yes Alcohol type: beer Hx Substance Use: No Preferred Language: Bulgarian Communication Ability: Effective Special Education Math Teacher Required: No Beliefs That Will Affect Care: None Current Living Situation: Spouse Other Information That Helps Us Care for You: No Feels Safe at Home: Yes Safety Concerns: Feels Safe At This Time Assistive Devices: Cane, CPAP and Glasses Review of Systems Review of Systems: All systems reviewed & are unremarkable except as noted in HPI & below Physical Exam Physical Exam: General- Not in distress Head- atraumatic Eyes- PERRL,. ENT- oropharynx clear Neck- supple, no JVD, . Lungs- clear to auscultation no wheezing or crackles. Heart- regular rhythm; no murmur, no gallop. Abdomen- normal bowel sounds, soft, nontender, no distension. Extremities- no pretibial edema, no erythema seen Neuro- alert, oriented x 3; PERRL,; no facial palsy; no dysarthria; non focal. Skin- warm & dry Results & Data Results & Data Vital Signs (Past 12 Hours) Vital Signs Temp Pulse Pulse Resp BP BP Pulse Ox 08/10/23 04:00 67 18 109/87 97 08/10/23 01:37 36.4 C L 88 18 115/69 97 08/10/23 01:35 87 O2 Del Method 08/10/23 04:00 Room Air 08/10/23 01:37 Room Air 08/10/23 01:35 Diagnostic Findings Laboratory Results WBC 7.05 K/ul (4.8-10.8) 08/10/23 01:37 RBC 4.81 M/uL (4.70-6.10) 08/10/23 01:37 Hgb 13.7 g/dl (14.0-18.0) L 08/10/23 01:37 Hct 41.3 % (42.0-52.0) L 08/10/23 01:37 MCV 85.9 fL (80.0-100.0) 08/10/23 01:37 MCH 28.5 pg (25.0-34.0) 08/10/23 01:37 MCHC 33.2 g/dL (32.0-36.0) 08/10/23 01:37 RDW Std Deviation 46.8 fL (36.4-46.3) H 08/10/23 01:37 RDW Coeff of Ade 14.7 % (11.5-14.5) H 08/10/23 01:37 Plt Count 219 K/uL (130-400) 08/10/23 01:37 MPV 9.7 fL (9.4-12.4) 08/10/23 01:37 Immature Gran % (Auto) 0.1 % 08/10/23 01:37 Neut % (Auto) 63.4 % 08/10/23 01:37 Lymph % (Auto) 23.5 % 08/10/23 01:37 [place] % (Auto) 7.7 % 08/10/23 01:37 Eos % (Auto) 4.3 % 08/10/23 01:37 Baso % (Auto) 1.0 % 08/10/23 01:37 Neut # (Auto) 4.47 K/uL (1.40-6.50) 08/10/23 01:37 Lymph # (Auto) 1.66 K/uL (1.20-3.40) 08/10/23 01:37 [place] # (Auto) 0.54 K/uL (0.11-0.59) 08/10/23 01:37 Eos # (Auto) 0.30 K/uL (0.00-0.50) 08/10/23 01:37 Baso # (Auto) 0.07 K/uL (0.00-0.20) 08/10/23 01:37 Immature Gran # (Auto) 0.01 K/uL (0.01-0.20) 08/10/23 01:37 PT 34.5 Seconds (9.0-12.0) H 08/10/23 01:37 INR 3.4 (0.9-1.1) H 08/10/23 01:37 Sodium 137 mmol/L (136-145) 08/10/23 01:37 Potassium 3.7 mmol/L (3.5-5.1) 08/10/23 01:37 Chloride 98 mmol/L (98-107) 08/10/23 01:37 Carbon Dioxide 25 mmol/L (21-32) 08/10/23 01:37 Anion Gap 14 (3-11) H 08/10/23 01:37 BUN 23 mg/dl (6-23) 08/10/23 01:37 Creatinine 1.38 mg/dl (0.6-1.4) 08/10/23 01:37 Est Cr Clr Drug Dosing Not Reportable 08/10/23 01:37 Est GFR ( Amer) 57.2 ml/min 08/10/23 01:37 Est GFR (Non-Af Amer) 49.3 ml/min 08/10/23 01:37 BUN/Creatinine Ratio 16.7 (10-20) 08/10/23 01:37 Glucose 249 mg/dl (70-99(Fasting)) H 08/10/23 01:37 Calcium 9.6 mg/dl (8.6-10.3) 08/10/23 01:37 Phosphorus 3.2 mg/dl (2.5-4.9) 08/10/23 01:37 Magnesium 1.8 mg/dl (1.7-2.4) 08/10/23 01:37 Total Bilirubin 0.5 mg/dl (0.2-1.0) 08/10/23 01:37 AST 71 U/L (13-39) H 08/10/23 01:37 ALT 58 U/L (7-52) H 08/10/23 01:37 Alkaline Phosphatase 126 U/L (34-104) H 08/10/23 01:37 Troponin I High Sens 1424.2 pg/ml (0-20) H* D 08/10/23 03:48 Total Protein 8.0 gm/dl (6.0-8.3) 08/10/23 01:37 Albumin 4.4 gm/dl (3.4-5.0) 08/10/23 01:37 Globulin 3.6 gm/dl (2.5-4.0) 08/10/23 01:37 Albumin/Globulin Ratio 1.2 (0.9-2) 08/10/23 01:37 TSH 5.423 uIu/ml (0.300-4.500) H 08/10/23 01:37 Free T4 1.10 ng/dl (0.61-1.60) 08/10/23 01:37 ECG Additional Comments: ECG AV dual paced rhythm with rate of 77 Code Status & VTE Plan VTE Prophylaxis Plan VTE Prophylaxis will be ordered: Yes
[2023-08-10] MEDS ORDERED: GLUCOSE 10 TAB/TUBE PO PRN (05:31)
[2023-08-10] MEDS ORDERED: CARBOHYDRATES FOR HYPOGLYCEMIA PO PRN (05:31)
[2023-08-10] MEDS ORDERED: NITROGLYCERIN SL 0.4 MG/TAB TAB SL PRN (05:31)
[2023-08-10] MEDS ORDERED: GLUCOSE 40% GEL 15 GM TUBE PO PRN (05:31)
[2023-08-10] MEDS ORDERED: GLUCAGON FOR INJ 1 MG VIAL SQ PRN (05:31)
[2023-08-10] MEDS ORDERED: DEXTROSE 50% 50 ML SYRINGE IV PRN (05:31)
[2023-08-10] MEDS ORDERED: ACETAMINOPHEN 325 MG TAB PO PRN (05:31)
[2023-08-10] MEDS: INSULIN ASPART PER UNIT CHARGE SC SCH ×5 (05:54→20:47)
[2023-08-10 07:34] LABS: Basophils # (auto) 0.05 K/uL (0.00-0.20); Basophils % (auto) 0.7 %; Eosinophils # (auto) 0.29 K/uL (0.00-0.50); Hematocrit (blood only) 35.1 % (42.0-52.0); Hemoglobin 11.9 g/dl (14.0-18.0); Immature Granulocytes # (auto) 0.02 K/uL (0.01-0.20); Immature Granulocytes % (auto) 0.3 %; Lymphocytes # (auto) 1.71 K/uL (1.20-3.40); Lymphocytes % (auto) 23.7 %; Mean Corpuscular Hemoglobin 28.6 pg (25.0-34.0); Mean Corpuscular Hgb Conc 33.9 g/dL (32.0-36.0); Mean Corpuscular Volume 84.4 fL (80.0-100.0); Mean Platelet Volume 9.2 fL (9.4-12.4); Monocytes # (auto) 0.59 K/uL (0.11-0.59); Monocytes % (auto) 8.2 %; Neutrophils # (auto) 4.56 K/uL (1.40-6.50); Neutrophils % (auto) 63.1 %; Platelet Count 206 K/uL (130-400); RDW Coefficient of Variation 15.1 % (11.5-14.5); RDW Standard Deviation 46.4 fL (36.4-46.3); Red Blood Count 4.16 M/uL (4.70-6.10); White Blood Count 7.22 K/ul (4.8-10.8)
[2023-08-10 07:43] LABS: Appearance Urine Clear (Clear); Bilirubin Urine Negative (Negative); Blood Urine Negative (Negative); Color Urine Yellow; Glucose Urine UA 3+ (Negative); Ketones Urine Negative (Negative); Leukocyte Esterase Urine Negative (Negative); Nitrite Urine Negative (Negative); Protein Urine Negative (Negative); Urobilinogen Urine Negative (Negative); pH Urine 5.5 (4.5-7.5)
[2023-08-10 07:44] LABS: Anion Gap 8 (3-11); BUN Creatinine Ratio 20.5 (10-20); Blood Urea Nitrogen 23 mg/dl (6-23); Calcium 8.8 mg/dl (8.6-10.3); Carbon Dioxide 30 mmol/L (21-32); Chloride 101 mmol/L (98-107); Est GFR (African American) 73.6 ml/min; Est GFR (Non-African American) 63.5 ml/min; Glucose 168 mg/dl (70-99(Fasting)); Magnesium 1.9 mg/dl (1.7-2.4); Potassium 4.1 mmol/L (3.5-5.1); Sodium 139 mmol/L (136-145)
[2023-08-10 07:51] LABS: Troponin I High Sensitivity 1395.9 pg/ml (0-20)
[2023-08-10 08:05] LABS: Estimated Average Glucose 200 mg/dl; Hemoglobin A1C 8.6 % (4.5-5.6)
--- NOTE | 2023-08-10 08:49 | Cardiology Consultation ---
Date of Consultation August 10, 2023 Assessment & Plan (1) Syncope and collapse: (2) Ventricular tachycardia: (3) Chronic systolic CHF (congestive heart failure): (4) Biventricular ICD (implantable cardioverter-defibrillator) in place: Plan IMPRESSION: Medically complex 77 year old male with ICM with severe LV systolic function, s/p BIV-ICD in place. Repeat echo pending. x2 episodes of syncope in the setting of symptomatic sustained VT. ICD interrogated revealing VT just under detection rate-- not treated. PLAN: BIV-ICD settings adjusted. Detection rate lowered and ATP settings added. On amiodarone and metoprolol for history of PAF and VT: Increase amiodarone to 200 mg QID Reduce Digoxin to 0.125 mg MWF only Continue metoprolol succinate 25 mg daily-- hesitant to adjust BB dose due to asymptomatic hypotension Anticoagulated due to hx of apical thrombus and AFIB Will need to adjust Coumadin dose given increase in amiodarone, INR elevated today, Coumadin on hold- will repeat INR in the am. GDMT with metoprolol succinate, lisinopril, and Lasix-- continue. Also on digoxin-- dig level stable. Case discussed with Dr. Villanueva. Will follow. Supervising Physician Co-Signing Physician Notes Patient was seen and personally examined. 77-year-old male with complex history of longstanding ischemic cardiomyopathy status post coronary bypass grafting 1997 moderate to severe chronic LV dysfunction. Indwelling BiV pacer defibrillator in place Patient presents now after 2 episodes of syncope in association with sustained ventricular tachycardia. No obvious precipitating cause. Patient denies angina, worsening edema or shortness of breath. Weight has been stable Not aware of any tachypalpitations no interruptions in current medication No fevers chills or unexplained infections. Chronically ill ill-appearing male but no acute distress. No signs of volume overload no jugular venous distention Lungs predominantly clear cardiovascular regular with paced rhythm Echocardiogram with ischemic cardiomyopathy similar to prior studies EF approximately 20% with extensive thinned inferior posterior and inferoseptal infarct Impression as above syncope secondary to sustained ventricular tachycardia. Arrhythmia occurred just below detection rate of defibrillator. Defibrillator reprogrammed. We will reload with amiodarone orally as above Continue chronic anticoagulation History of Present Illness Reason for Consultation: Syncope VT on ICD interrogation Attending Physician: Navya Guevara MD History of Present Illness Medically complex 77-year-old male presented to [facility] emergency department due to 2 episodes of syncope accompanied by diaphoresis, nausea and vomiting over the last week. His BiV ICD was interrogated and was found to have VT for both episodes. 08/06/2023 ~ 9 hours long-- did not loose consciousness, felt poorly with SOB, nausea, vomiting, diarrhea, lightheadedness, fatigue 08/09/2023 ~30 min long-- syncope, nausea, vomiting, diarrhea, severe SOB, lightheadedness, fatigue Episodes of VT were just under detection rate per [employer]. Patient carries a history of chronic systolic heart failure with an EF of approximately 22% most recently on echo 06/2023, as well as atrial flutter status post AV node ablation 03/2021 and ventricular tachycardia receiving a VT/VF shock in January 2013 and ATP 12/24/2020. He is maintained on amiodarone, metoprolol, and digoxin. He is anticoagulated with Coumadin Labs: stable CBC, BMP, okay BMP and Mag, dig level ok, TSH elevated, FreeT4 normal, HS trop elevated 2006>>[id number] Upon entrance into the room patient resting in bed. Noted feeling poorly during the EMS ride- doesn't recall many of the events prior to the hospital, but is feeling improved today. Currently chest pain free without shortness of breath. No further episodes of VT. Primary outpatient stock plan administrator: Dr. Mcginnis and Dr. Cortez, EP Past medical history: Atrial flutter (atypical) s/p DCCV but did not hold; on Coumadin and amiodarone [id number] (age, CHF, CAD, DM, HTN); s/p AVN ablation 03/25/2021 ICM s/p ICD 01/2007 gent change 02/27/2016 (Malcolm ICD lead) s/p upgrade to BiV ICD 09/19/2020, gen change 05/06/2023 LBBB Chronic heart failure with reduced EF and diastolic dysfunction, NYHA Class II LVEF ~22% Sinus bradycardia DM VT/VF s/p ICD shock in 01/2013 CAD s/p CABGx3 in 1997 History of LV apical thrombus has been on Coumadin since HTN HLD Hx of osteomyelitis of right great toe, s/p amputation Type 2 DM Allergies Allergy/AdvReac Type Severity Reaction Status Date / Time No Known Allergies Allergy Unknown Verified 05/06/23 09:29 Home Medications Medication Instructions Recorded Confirmed Type PreserVision AREDS-2 1 tab PO BID 08/10/23 08/10/23 History amiodarone 200 mg tablet 200 mg PO DAILY 08/10/23 08/10/23 History aspirin 81 mg tablet,delayed 81 mg PO DAILY 08/10/23 08/10/23 History release atorvastatin 80 mg tablet 80 mg PO DAILY 08/10/23 08/10/23 History digoxin 125 mcg (0.125 mg) tablet 125 mcg PO DAILY 08/10/23 08/10/23 History empagliflozin 10 mg tablet 10 mg PO DAILY 08/10/23 08/10/23 History (Jardiance) finasteride 5 mg tablet 5 mg PO DAILY 08/10/23 08/10/23 History furosemide 40 mg tablet 40 mg PO BID 08/10/23 08/10/23 History insulin degludec 100 unit/mL (3 10 unit subcut DAILY 08/10/23 08/10/23 History mL) subcutaneous pen (Exaviosiba FlexTouch U-100 insulin) lisinopril 2.5 mg tablet 2.5 mg PO DAILY 08/10/23 08/10/23 History metformin 1,000 mg tablet 1,000 mg PO BID 08/10/23 08/10/23 History metoprolol succinate 50 mg 25 mg PO DAILY 08/10/23 08/10/23 History tablet,extended release 24 hr semaglutide 1 mg/dose (4 mg/3 mL) 1 mg subcut WK 08/10/23 08/10/23 History subcutaneous pen injector (Ozempic) sertraline 50 mg tablet 50 mg PO DAILY 08/10/23 08/10/23 History terazosin 2 mg capsule 2 mg PO DAILY 08/10/23 08/10/23 History trazodone 50 mg tablet 50 mg PO HS 08/10/23 08/10/23 History warfarin 10 mg tablet 5 mg PO UD 08/10/23 08/10/23 History Patient History Medical History Anxiety Apical mural thrombus History of- on chronic Coumadin BPH (benign prostatic hyperplasia) CAD (coronary artery disease) S/p 3 vessel bypass 1997 Chronic systolic CHF (congestive heart failure) Severe LV dysfunction Depression Diabetes mellitus, type 2 Hyperlipidemia Hypertension ICD (implantable cardioverter-defibrillator) in place Biventricular ICD upgrade 08/2020 Medtronic- h/o ICD discharge 10/2020 x 2 per 01/2021 ICD check Ischemic cardiomyopathy EF= 13% on 10/2020 stress test LBBB (left bundle branch block) Follows with cardio Myocardial Infarction x3--last 1997--follows with Dr. Bang Mcginnis On anticoagulant therapy warfarin daily Paroxysmal atrial flutter Sleep apnea cpap Surgical History History of appendectomy History of bilateral cataract extraction History of cardiac cath x1--1997 @ [facility] [place]--no stents, had CABG History of carpal tunnel surgery of right wrist History of colonoscopy History of implantable cardioverter-defibrillator (ICD) placement inserted 01/2007, replaced 02/2016, upgraded to BiV ICD on 09/19/20--[employer]tronic History of surgery left leg vein removed for bypass History of tonsillectomy and adenoidectomy S/P triple vessel bypass @ [facility] [place] 1997 Family History Other No family history of adverse response to anesthesia Social History Smoking Status: Former smoker Tobacco Type: Cigarettes Second Hand Exposure: No; Do You Dip or Chew Tobacco: Yes; Tobacco Cessation Education Requested by Patient: No Hx Alcohol Use: Yes Alcohol type: beer Hx Substance Use: No Preferred Language: Moldovan Communication Ability: Effective Strategic Planner Required: No Beliefs That Will Affect Care: None Current Living Situation: Spouse Other Information That Helps Us Care for You: No Feels Safe at Home: Yes Safety Concerns: Feels Safe At This Time Assistive Devices: Cane, CPAP and Glasses Review of Systems Review of Systems: All systems reviewed & are unremarkable except as noted in HPI & below Physical Exam Constitutional: WD/WN, vitals as above no acute distress Neck: normal visual inspection and trachea midline Respiratory: normal respiratory effort, lungs clear to auscultation no cough Auscultation: no rales, no rhonchi and no wheezes Cardiovascular: RRR, no murmur, no edema Heart Sounds: normal S1 and normal S2 Vessels: no JVD Extremities: no edema Chest (Breasts): Chest: + pacemaker (left chest ) Gastrointestinal (Abdomen): normal bowel sounds, soft, nontender, no hepatosplenomegaly Skin: no rashes, warm and dry Psychiatric: A+Ox3, euthymic affect Results & Data Vital Signs (Past 12 Hours) Vital Signs Temp Pulse Pulse Resp BP BP Pulse Ox 08/10/23 07:36 36.6 C 71 20 119/68 99 08/10/23 07:36 71 99 08/10/23 06:40 85 L 08/10/23 06:00 70 18 112/61 94 08/10/23 05:36 70 08/10/23 04:00 67 18 109/87 97 08/10/23 01:37 36.4 C L 88 18 115/69 97 08/10/23 01:35 87 O2 Del Method O2 Flow Rate 08/10/23 07:36 Nasal Cannula 2 08/10/23 07:36 Nasal Cannula 2 08/10/23 06:40 Room Air, Nasal Cannula 0 08/10/23 06:00 Room Air 08/10/23 05:36 08/10/23 04:00 Room Air 08/10/23 01:37 Room Air 08/10/23 01:35 Laboratory Results Cardiac Enzymes 08/10/23 08/10/23 08/10/23 Range/Units 01:37 03:48 07:04 AST 71 H (13-39) U/L Troponin I High Sens 2007.9 H* 1424.2 H* D 1395.9 H* (0-20) pg/ml Coagulation 08/10/23 Range/Units 01:37 PT 34.5 H (9.0-12.0) Seconds CBC 08/10/23 08/10/23 Range/Units 01:37 07:04 WBC 7.05 7.22 (4.8-10.8) K/ul RBC 4.81 4.16 L (4.70-6.10) M/uL Hgb 13.7 L 11.9 L (14.0-18.0) g/dl Hct 41.3 L 35.1 L (42.0-52.0) % Plt Count 219 206 (130-400) K/uL Neut # (Auto) 4.47 4.56 (1.40-6.50) K/uL Lymph # (Auto) 1.66 1.71 (1.20-3.40) K/uL Tucker # (Auto) 0.54 0.59 (0.11-0.59) K/uL Eos # (Auto) 0.30 0.29 (0.00-0.50) K/uL Baso # (Auto) 0.07 0.05 (0.00-0.20) K/uL Comprehensive Metabolic Panel 08/10/23 08/10/23 Range/Units 01:37 07:04 Sodium 137 139 (136-145) mmol/L Potassium 3.7 4.1 (3.5-5.1) mmol/L Chloride 98 101 (98-107) mmol/L Carbon Dioxide 25 30 (21-32) mmol/L BUN 23 23 (6-23) mg/dl Creatinine 1.38 1.12 (0.6-1.4) mg/dl Glucose 249 H 168 H (70-99(Fasting)) mg/dl Calcium 9.6 8.8 (8.6-10.3) mg/dl AST 71 H (13-39) U/L ALT 58 H (7-52) U/L Alkaline Phosphatase 126 H (34-104) U/L Total Protein 8.0 (6.0-8.3) gm/dl Albumin 4.4 (3.4-5.0) gm/dl Intake and Output 08/09/23 08/10/23 08/10/23 22:59 06:59 14:59 Intake Total 0 / 0 Output Total 400 / 400 Balance -400 / -400 Intake: Oral 0 / 0 Output: Urine 400 / 400 Other: Weight 84.5 kg 85 kg Weight Measurement Method Built in [facility] Built in [facility] Patient Weight 08/11/23 06:59 Weight 85 kg Diagnostic Findings Outpatient echo 06/2023 LVEF severely reduced to 22% with inferior posterior wall that are thinned and akinetic. Septum severely hypokinetic to akinetic. The remaining left ventricular myocardial wall segments are hypokinetic. Overall echo is unchanged when compared to 06/2021
[2023-08-10] MEDS: lisinopril 2.5 MG TAB PO SCH (08:54)
[2023-08-10] MEDS: FINASTERIDE 5 MG TAB PO SCH (08:54)
[2023-08-10] MEDS: ATORVASTATIN 40 MG TAB PO SCH (08:54)
[2023-08-10] MEDS: ASPIRIN 81 MG ECTAB PO SCH (08:54)
[2023-08-10] MEDS: FUROSEMIDE 40 MG TAB PO SCH ×2 (08:54→18:18)
[2023-08-10] MEDS: METOPROLOL SUCC 25MG EXT REL TAB PO SCH (08:55)
[2023-08-10] MEDS: TERAZOSIN HCL 1 MG CAP PO SCH (08:55)
[2023-08-10] MEDS: SERTRALINE HCL 50 MG TABLET PO SCH (08:55)
[2023-08-10] MEDS ORDERED: AMIODARONE 200 MG TAB PO SCH (09:00)
[2023-08-10] MEDS ORDERED: PHARMACY GLYCEMIC MGMT CONSULT PRN (09:12)
--- NOTE | 2023-08-10 09:31 | Electrocardiogram Report ---
Test Reason : Blood Pressure : / mmHG Vent. Rate : 077 BPM Atrial Rate : 077 BPM P-R Int : 182 ms QRS Dur : 168 ms QT Int : 472 ms P-R-T Axes : 092 123 066 degrees QTc Int : 534 ms AV dual-paced rhythm Abnormal ECG When compared with ECG of 06-MAY-2023 14:08, Vent. rate has increased BY 7 BPM Confirmed by Ernesto Marin ([id number]) on 08/10/2023 9:31:33 AM Referred By: REFERRED SELF Confirmed By:Ernesto Marin
--- NOTE | 2023-08-10 10:10 | CT Scan Report ---
CT SCAN OF THE BRAIN WITHOUT IV CONTRAST CLINICAL HISTORY: Fall. COMPARISON STUDY: No priors. TECHNIQUE: Unenhanced axial CT scan of the brain is performed from the vertex to the skull base. A do se lowering technique was utilized adhering to the principles of ALARA. CT DOSE: 625.80 mGy.cm FINDINGS: Brain parenchyma: There is age-related involutional change noting moderate subcortical and periventri cular microangiopathic disease. There is no hemorrhage, mass effect, or evidence of acute territorial ischemia by CT criteria. Guerin-white matter differentiation is preserved. No extra-axial fluid collec tion is seen. Ventricles, sulci, cisterns: Prominent secondary to involutional change. Intracranial vasculature: There is atherosclerotic calcification of the cavernous carotid and vertebr al arteries. Calvarium: The skeletal structures are osteopenic. No depressed calvarial fracture is identified. Sinuses and mastoids: The visualized paranasal sinuses are clear. The mastoid air cells are well pneu matized. Orbits: The bony orbits are grossly intact. There are bilateral ocular lens implants. IMPRESSION: There is no hemorrhage, mass effect, or evidence of acute territorial ischemia by CT vonnie syed. ACT 112: Negative or not required by law. Electronically signed by: Abner Boyce M.D. 08/10/2023 10:09 AM
[2023-08-10] MEDS ORDERED: LANTUS PER UNIT CHARGE SC SCH (12:00)
[2023-08-10] MEDS: AMIODARONE 200 MG TAB PO SCH ×3 (12:26→21:09)
--- NOTE | 2023-08-10 13:20 | Pharmacy Report ---
Pharmacy Glycemic Short Note 2 - Date of Service August 10, 2023 - Glycemic Short BSG Results (Last 24 hours): 08/10/23 08/10/23 08/10/23 01:37 05:52 07:04 Glucose 249 H 168 H POC Glucose 160 H 08/10/23 11:48 Glucose POC Glucose 124 H OUTPATIENT ANTIDIABETIC REGIMEN: * Tresiba 10 units SQ daily * Ozempic 1mg SQ Q 7 days * Jardiance 10mg PO daily * metformin 1000mg BID ASSESSMENT: * Shane is a 77 YOM admitted for syncope/NSTEMI/Vtach with a history of T2DM. Pharmacy has been consulted for glycemic management while inpatient. * Fasting BSGs this AM were elevated, will begin Lantus 10 units daily as Tresiba is non-formulary * Novolog initiated at a weight based stress of 2 PLAN FOR INPATIENT GLYCEMIC CONTROL: * Hold outpatient oral diabetes medications * Basal insulin * Lantus 10 units SQ daily * Bolus insulin * NovoLog per scale ACHS or Q6hrs while NPO * Goal Range: Low 110 mg/dL - High 140 mg/dL * Correction Factor: 30 mg/dL/unit * Nutritional / Prandial insulin per carb ratio of 1 unit per 9 grams CHO consumed
[2023-08-10] MEDS ORDERED: DIGOXIN 0.125 MG TAB PO SCH ×2 (16:00)
--- NOTE | 2023-08-10 16:45 | Communication Note ---
Date of Service: August 10, 2023 Patient was seen and evaluated for follow-up of syncope and V. tach. Lying in bed with no acute distress. Troponin on admission 2006.9, trending down. INR was 3.4. Arrhythmia occurred just below detection rate of defibrillator as per cardiology. Defibrillator reprogrammed. Echo showed severe global hypokinesis with thinning and scarring of the anterior posterior and inferoseptal wall. The left ventricle is moderately dilated. Ejection fraction 15 to 20%. Cardiology on board. Loading dose of amiodarone given, amiodarone 200 mg 4 times daily for now. Continue digoxin and metoprolol. Coumadin dose adjusted due to amiodarone interaction. Continue monitor closely in telemetry. MD Paola
[2023-08-10] MEDS: CEROVITE ADV FORMULA TAB PO SCH (21:58)
--- NOTE | 2023-08-11 07:28 | Cardiology Progress Note ---
Date of Service August 11, 2023 Assessment & Plan (1) Syncope and collapse: (2) Ventricular tachycardia: (3) Chronic systolic CHF (congestive heart failure): (4) Biventricular ICD (implantable cardioverter-defibrillator) in place: Plan IMPRESSION: Medically complex 77 year old male with ICM with severe LV systolic function, s/p BIV-ICD in place. Echocardiogram with ischemic cardiomyopathy similar to prior studies EF approximately 20% with extensive thinned inferior posterior and inferoseptal infarct x2 episodes of syncope in the setting of symptomatic sustained VT. ICD interrogated revealing VT just under detection rate-- not treated. PLAN: BIV-ICD settings reprogramed. Detection rate lowered and ATP settings added. On amiodarone and metoprolol for history of PAF and VT: Reloaded with oral amiodarone 200 mg QID-- continue Reduce Digoxin to 0.125 mg MWF only Continue metoprolol succinate 25 mg daily-- hesitant to adjust BB dose due to asymptomatic hypotension Anticoagulated due to hx of apical thrombus and AFIB Will need to adjust Coumadin dose given increase in amiodarone, INR 2.1 today. GDMT with metoprolol succinate, lisinopril, and Lasix-- continue. Also on digoxin-- dig level stable. Case discussed with Dr. Villanueva. Will follow. Admission and Anticipated Discharge Date Admission Date: August 10, 2023 Supervising Physician Co-Signing Physician Notes Patient seen and examined, chart, medications, telemetry reviewed. Looks and feels better today. No arrhythmias overnight other than rare ventricular ectopy EKG atrial ventricular pacing with biventricular pacing, QT corrected 486 Impression: As above patient admitted following episodes of sustained ventricular tachycardia below defibrillator sensing threshold Plan: Continue telemetry additional 24-hour during amiodarone load. Subjective 77-year-old male with complex history of longstanding ischemic cardiomyopathy status post coronary bypass grafting 1997 moderate to severe chronic LV dysfunction. Indwelling BiV pacer defibrillator in place. Patient presents now after 2 episodes of syncope in association with sustained ventricular tachycardia. Echocardiogram this admission with ischemic cardiomyopathy similar to prior studies EF approximately 15-20% with extensive thinned inferior posterior and inferoseptal infarct. 08/10: Syncope secondary to sustained VT. Arrhythmia occurred just below detection rate of defibrillator. Defibrillator reprogrammed. Reloaded with amiodarone orally, 200 mg 4 times daily. Digoxin dose and Coumadin dose adjusted for increase in amiodarone. 08/11: Upon entrance into the room patient resting in bed. Feels well. No chest pain, sob, lightheadedness. No orthopnea or PND. No lower extremity edema. No syncope. Tele: BiV paced with PVCs 70s Labs: Renal function stable. potassium stable, INR 2.1 Review of Systems Review of Systems: All systems reviewed & are unremarkable except as noted in HPI & below Physical Exam Constitutional: WD/WN, vitals as above no acute distress Neck: normal visual inspection and trachea midline Respiratory: normal respiratory effort, lungs clear to auscultation no cough Auscultation: no rales, no rhonchi and no wheezes Cardiovascular: RRR, no murmur, no edema Heart Sounds: normal S1 and normal S2 Vessels: no JVD Extremities: no edema Chest (Breasts): Chest: + pacemaker (left chest ) Gastrointestinal (Abdomen): normal bowel sounds, soft, nontender, no hepatosplenomegaly Skin: no rashes, warm and dry Psychiatric: A+Ox3, euthymic affect Results & Data Vital Signs (Past 12 Hours) Vital Signs Temp Pulse Pulse Resp BP Pulse Ox O2 Del Method 08/11/23 07:19 36.8 C 70 20 114/73 93 Room Air 08/11/23 03:07 36.6 C 73 16 104/62 95 Room Air 08/10/23 22:30 81 08/10/23 23:01 36.5 C 71 20 102/64 95 Room Air 08/10/23 20:00 Room Air 08/10/23 19:30 36.6 C 73 18 102/62 95 Room Air Laboratory Results Cardiac Enzymes 08/10/23 08/10/23 08/11/23 Range/Units 10:38 17:30 07:00 AST 33 (13-39) U/L Troponin I High Sens 1281.5 H* 1193.0 H* (0-20) pg/ml Coagulation 08/11/23 Range/Units 07:00 PT 21.8 H (9.0-12.0) Seconds CBC 08/11/23 Range/Units 07:00 WBC 8.02 (4.8-10.8) K/ul RBC 4.50 L (4.70-6.10) M/uL Hgb 12.6 L (14.0-18.0) g/dl Hct 38.0 L (42.0-52.0) % Plt Count 213 (130-400) K/uL Comprehensive Metabolic Panel 08/11/23 Range/Units 07:00 Sodium 138 (136-145) mmol/L Potassium 3.9 (3.5-5.1) mmol/L Chloride 102 (98-107) mmol/L Carbon Dioxide 29 (21-32) mmol/L BUN 23 (6-23) mg/dl Creatinine 1.16 (0.6-1.4) mg/dl Glucose 152 H (70-99(Fasting)) mg/dl Calcium 8.9 (8.6-10.3) mg/dl AST 33 (13-39) U/L ALT 40 (7-52) U/L Alkaline Phosphatase 90 (34-104) U/L Total Protein 7.3 (6.0-8.3) gm/dl Albumin 3.9 (3.4-5.0) gm/dl Intake and Output 08/10/23 08/11/23 08/11/23 22:59 06:59 14:59 Intake Total 300 / 300 Output Total 400 / 1051 251 / 1051 400 / 400 Balance -100 / -751 -251 / -751 -400 / -400 Intake: Oral 300 / 300 Output: Urine 400 / 1050 250 / 1050 400 / 400 # Bowel Movements Other: # Unmeasured Voids 1 Weight 82.1 kg Weight Measurement Method Built in [facility]
[2023-08-11 07:37] LABS: Hemoglobin 12.6 g/dl (14.0-18.0); Mean Corpuscular Hgb Conc 33.2 g/dL (32.0-36.0); Mean Corpuscular Volume 84.4 fL (80.0-100.0); Mean Platelet Volume 9.4 fL (9.4-12.4); Platelet Count 213 K/uL (130-400); RDW Coefficient of Variation 15.2 % (11.5-14.5); RDW Standard Deviation 46.3 fL (36.4-46.3); White Blood Count 8.02 K/ul (4.8-10.8)
[2023-08-11 07:58] LABS: Albumin Globulin Ratio 1.1 (0.9-2); Albumin Level 3.9 gm/dl (3.4-5.0); BUN Creatinine Ratio 19.8 (10-20); Bilirubin,Total 0.7 mg/dl (0.2-1.0); Calcium 8.9 mg/dl (8.6-10.3); Creatinine Clr Calc Pharmacy 55.9 ml/min; Est GFR (African American) 70.5 ml/min; Est GFR (Non-African American) 60.8 ml/min; Globulin 3.4 gm/dl (2.5-4.0); Potassium 3.9 mmol/L (3.5-5.1); Total Protein 7.3 gm/dl (6.0-8.3)
[2023-08-11 08:03] LABS: INR 2.1 (0.9-1.1); Prothrombin Time 21.8 Seconds (9.0-12.0)
[2023-08-11] MEDS: CEROVITE ADV FORMULA TAB PO SCH (08:15)
[2023-08-11] MEDS: lisinopril 2.5 MG TAB PO SCH (08:15)
[2023-08-11] MEDS: FUROSEMIDE 40 MG TAB PO SCH ×2 (08:15→16:35)
[2023-08-11] MEDS: SERTRALINE HCL 50 MG TABLET PO SCH (08:15)
[2023-08-11] MEDS: METOPROLOL SUCC 25MG EXT REL TAB PO SCH (08:15)
[2023-08-11] MEDS: AMIODARONE 200 MG TAB PO SCH ×4 (08:15→20:53)
[2023-08-11] MEDS: ASPIRIN 81 MG ECTAB PO SCH (08:15)
[2023-08-11] MEDS: ATORVASTATIN 40 MG TAB PO SCH (08:16)
[2023-08-11] MEDS: TERAZOSIN HCL 1 MG CAP PO SCH (08:16)
[2023-08-11] MEDS: LANTUS PER UNIT CHARGE SC SCH (08:16)
[2023-08-11] MEDS: FINASTERIDE 5 MG TAB PO SCH (08:16)
[2023-08-11] MEDS: INSULIN ASPART PER UNIT CHARGE SC SCH ×4 (08:17→20:50)
[2023-08-11] MEDS ORDERED: NON-FORMULARY MEDICATION (Insulin Degludec [Tresiba Flextouch U-100] 100 unit/mL (3 mL) In SQ SCH (09:00)
--- NOTE | 2023-08-11 11:15 | Electrocardiogram Report ---
Test Reason : Blood Pressure : / mmHG Vent. Rate : 072 BPM Atrial Rate : 072 BPM P-R Int : 192 ms QRS Dur : 134 ms QT Int : 444 ms P-R-T Axes : 088 123 -70 degrees QTc Int : 486 ms Poor data quality, interpretation may be adversely affected AV dual-paced rhythm with occasional Premature ventricular complexes Abnormal ECG When compared with ECG of 10-AUG-2023 01:37, Premature ventricular complexes are now Present Vent. rate has decreased BY 5 BPM Confirmed by Ernesto Marin ([id number]) on 08/11/2023 11:15:14 AM Referred By: REFERRED SELF Confirmed By:Ernesto Marin
[2023-08-11] MEDS ORDERED: WARFARIN SOD 5 MG TAB PO ONE (16:06)
--- NOTE | 2023-08-11 21:37 | Hospitalist Progress Note ---
Date of Service August 11, 2023 Assessment & Plan (1) Syncope and collapse: Plan: 77-year-old male with past medical significant for type 2 diabetes, diabetic retinopathy, hyperlipidemia, chronic systolic and diastolic CHF, EF 22% last echo 07/07/2023, s/p BiV ICD, hx of VT/VF s/p ICD shock in 2002,atypical atrial flutter, s/p AV emely ablation, CAD s/p CABG,hypertension, left bundle branch block, history of sinus bradycardia, Hx of LV apical thrombus on Coumadin since BPH, low back pain, depression, presents with syncope. ICD interrogation found to have V. tach. Also having elevated troponins Syncope V. tach ICD interrogation showed V. tach both times Arrhythmia occurred just below detection rate of defibrillator as per cardiology. Defibrillator reprogrammed. Echo showed severe global hypokinesis with thinning and scarring of the anterior posterior and inferoseptal wall. The left ventricle is moderately dilated. Ejection fraction 15 to 20%. Cardiology on board. Loading dose of amiodarone given, amiodarone 200 mg 4 times daily for now. Continue digoxin and metoprolol. Coumadin dose adjusted due to amiodarone drug interaction. Case discussed with cardiology recommended to monitor in tele for today and possible discharge tomorrow if no arrhthmia Clinically stable Non-ST elevated DC Troponin on admission 2006.9, trending down. Denies any chest pain cho showed severe global hypokinesis with thinning and scarring of the anterior posterior and inferoseptal wall. Continue Coumadin with INR 2.1 Continue monitor in tele History of chronic systolic and diastolic CHF Ejection fraction 15 to 20%. S/P ICD Continue Lasix , metoprolol succinate, lisinopril and digoxin Will monitor for volume overload History of apical mural thrombus on Coumadin since A flutter Continue loading dose amiodarone ,digoxin, metoprolol Coumadin 5mg given today, INR 2.1 Continue monitor PT/INR Diabetes type 2 Most recent Hab1c 8.6 Jardiance and metformin held On Tresiba 10 units daily and Ozempic weekly On Lantus and insulin sliding scale Continue monitor BS Hypertension Continue lisinopril, metoprolol succinate, terazosin, and Lasix We will monitor BPH On Proscar and terazosin Sleep apnea CPAP nightly DVT prophylaxis on Coumadin INR 2.1 Full code Disposition Plan to discharge tomorrow Admission and Anticipated Discharge Date Admission Date: August 10, 2023 Subjective Pt was seen and examined for follow up Lying in bed with no acute distress He feels much better today He was saturated well on RA Denies any chest pain, palpitation, dizziness and SOB Review of Systems Review of Systems: All systems reviewed & are unremarkable except as noted in Subjective Physical Exam Physical Exam: General- No acute distress Head- atraumatic Eyes- PERRL, EOMI, ENT- oropharynx clear Neck- supple, no JVD Lungs- clear to auscultation Heart- regular rhythm; no murmur Abdomen- normal bowel sounds, soft, nontender Extremities- no calf tenderness Neuro- alert, oriented x 3; PERRL, EOMI; no facial palsy; no dysarthria Skin- warm & dry Results & Data Results & Data Vital Signs (Past 12 Hours) Vital Signs Temp Pulse Pulse Resp BP Pulse Ox O2 Del Method 08/11/23 19:24 36.7 C 70 18 113/71 97 Room Air 08/11/23 16:19 70 08/11/23 15:20 36.5 C 76 18 94/54 L 95 Room Air 08/11/23 10:47 36.9 C 70 20 99/61 L 93 Room Air 08/11/23 10:00 73 08/11/23 10:00 Room Air
[2023-08-12] MEDS: CEROVITE ADV FORMULA TAB PO SCH ×2 (00:55→08:10)
--- NOTE | 2023-08-12 07:08 | Cardiology Progress Note ---
Date of Service August 12, 2023 Assessment & Plan (1) Syncope and collapse: (2) Ventricular tachycardia: (3) Chronic systolic CHF (congestive heart failure): (4) Biventricular ICD (implantable cardioverter-defibrillator) in place: Plan IMPRESSION: Medically complex 77 year old male with ICM with severe LV systolic function, s/p BIV-ICD in place. Echocardiogram with ischemic cardiomyopathy similar to prior studies EF approximately 20% with extensive thinned inferior posterior and inferoseptal infarct x2 episodes of syncope in the setting of symptomatic sustained VT. ICD interrogated revealing VT just under detection rate-- not treated. PLAN: BIV-ICD settings reprogramed. Detection rate lowered and ATP settings added. On amiodarone and metoprolol for history of PAF and VT: Reduce amiodarone to 200 mg twice daily- continue at discharge. Continue Digoxin to 0.125 mg MWF only Continue metoprolol succinate 25 mg daily-- hesitant to adjust BB dose due to asymptomatic hypotension Potassium goal of 4.0-- supplemented with 40 meq of KCL this am. Anticoagulated due to hx of apical thrombus and AFIB Will need to adjust Coumadin dose given increase in amiodarone, INR 1.5 today, received 5 mg of Coumadin yesterday. Coumadin level will need adjusted for increased amio dosage. Follows with outpatient anticoag clinic. GDMT with metoprolol succinate, lisinopril, and Lasix-- continue. Also on di goxin-- dig level stable. Case discussed with Dr. Villanueva. No further recommendations from a cardiology standpoint. Okay for discharge. I will arrange for follow up in our outpatient cardio office in 3-4 weeks. Will plan on device check at that time. Admission and Anticipated Discharge Date Admission Date: August 10, 2023 Supervising Physician Co-Signing Physician Notes Patient seen and examined, chart, medications, telemetry reviewed. Looks and feels better today. No arrhythmias overnight other than rare ventricular ectopy Plan as outlined above. Given recurrent ventricular tachycardia secondary to underlying ischemic cardiomyopathy amiodarone increased to 200 g twice per day and device reprogrammed Subjective 77-year-old male with complex history of longstanding ischemic cardiomyopathy status post coronary bypass grafting 1997 moderate to severe chronic LV dysfunction. Indwelling BiV pacer defibrillator in place. Patient presents now after 2 episodes of syncope in association with sustained ventricular tachycardia. Echocardiogram this admission with ischemic cardiomyopathy similar to prior studies EF approximately 15-20% with extensive thinned inferior posterior and inferoseptal infarct. 08/10: Syncope secondary to sustained VT. Arrhythmia occurred just below detection rate of defibrillator. Defibrillator reprogrammed. Reloaded with amiodarone orally, 200 mg 4 times daily. Digoxin dose and Coumadin dose adjusted for increase in amiodarone. 08/11: No acute concerns. Tele: BiV paced with PVCs 70s, No VT. Labs: Renal function stable. potassium stable, INR 2.1-- Coumadin restarted. 08/12: Upon entrance into the room patient resting comfortably. No acute concerns. No chest pain, sob, lightheadedness, palpitations. No syncope. No orthopnea, PND or lower extremity edema. Eager for discharge. Tele: BIV paced 70s, PVCs. NO VT. Labs: Stable renal function, Potassium 3.7, INR 1.5 (low) Review of Systems Review of Systems: All systems reviewed & are unremarkable except as noted in HPI & below Physical Exam Constitutional: WD/WN, vitals as above no acute distress Neck: normal visual inspection and trachea midline Respiratory: normal respiratory effort, lungs clear to auscultation no cough Auscultation: no rales, no rhonchi and no wheezes Cardiovascular: RRR, no murmur, no edema Heart Sounds: normal S1 and normal S2 Vessels: no JVD Extremities: no edema Chest (Breasts): Chest: + pacemaker (left chest ) Gastrointestinal (Abdomen): normal bowel sounds, soft, nontender, no he patosplenomegaly Skin: no rashes, warm and dry Psychiatric: A+Ox3, euthymic affect Results & Data Vital Signs (Past 12 Hours) Vital Signs Temp Pulse Resp BP Pulse Ox O2 Del Method 08/12/23 03:03 36.6 C 76 18 104/68 93 Room Air 08/11/23 23:21 36.9 C 70 18 111/69 96 Room Air 08/11/23 19:24 36.7 C 70 18 113/71 97 Room Air Laboratory Results Coagulation 08/12/23 Range/Units 06:45 PT 15.6 H (9.0-12.0) Seconds Comprehensive Metabolic Panel 08/12/23 Range/Units 06:45 Sodium 136 (136-145) mmol/L Potassium 3.7 (3.5-5.1) mmol/L Chloride 102 (98-107) mmol/L Carbon Dioxide 27 (21-32) mmol/L BUN 23 (6-23) mg/dl Creatinine 1.19 (0.6-1.4) mg/dl Glucose 159 H (70-99(Fasting)) mg/dl Calcium 8.8 (8.6-10.3) mg/dl Intake and Output 08/11/23 08/12/23 08/12/23 22:59 06:59 14:59 Intake Total 560 / 0 500 / 0 Output Total Balance 560 / 1338 498 / 1338 Intake: Oral 560 / 0 500 / 0 Output: # Bowel Movements 2 / 2 Other: # Unmeasured Voids 5 Weight 83.4 kg Weight Measurement Method Built in [facility]
[2023-08-12 07:29] LABS: BUN Creatinine Ratio 19.3 (10-20); Calcium 8.8 mg/dl (8.6-10.3); Creatinine Clr Calc Pharmacy 54.5 ml/min; Est GFR (African American) 68.4 ml/min; Potassium 3.7 mmol/L (3.5-5.1)
[2023-08-12 07:38] LABS: INR 1.5 (0.9-1.1); Prothrombin Time 15.6 Seconds (9.0-12.0)
--- NOTE | 2023-08-12 07:52 | Electrocardiogram Report ---
Test Reason : Blood Pressure : / mmHG Vent. Rate : 072 BPM Atrial Rate : 072 BPM P-R Int : 186 ms QRS Dur : 144 ms QT Int : 470 ms P-R-T Axes : 000 117 -01 degrees QTc Int : 514 ms AV dual-paced rhythm Abnormal ECG When compared with ECG of 11-AUG-2023 06:16, Premature ventricular complexes are no longer Present Confirmed by Ernesto Marin ([id number]) on 08/12/2023 7:51:51 AM Referred By: REFERRED SELF Confirmed By:Ernesto Marin
[2023-08-12] MEDS: SERTRALINE HCL 50 MG TABLET PO SCH (08:08)
[2023-08-12] MEDS: LANTUS PER UNIT CHARGE SC SCH (08:08)
[2023-08-12] MEDS: INSULIN ASPART PER UNIT CHARGE SC SCH ×2 (08:08→11:48)
[2023-08-12] MEDS: AMIODARONE 200 MG TAB PO SCH (08:09)
[2023-08-12] MEDS: FUROSEMIDE 40 MG TAB PO SCH (08:09)
[2023-08-12] MEDS: lisinopril 2.5 MG TAB PO SCH (08:09)
[2023-08-12] MEDS: FINASTERIDE 5 MG TAB PO SCH (08:09)
[2023-08-12] MEDS: ATORVASTATIN 40 MG TAB PO SCH (08:09)
[2023-08-12] MEDS: TERAZOSIN HCL 1 MG CAP PO SCH (08:09)
[2023-08-12] MEDS: ASPIRIN 81 MG ECTAB PO SCH (08:09)
[2023-08-12] MEDS: METOPROLOL SUCC 25MG EXT REL TAB PO SCH (08:10)
[2023-08-12] MEDS ORDERED: POTASSIUM CHLORIDE CRTAB 20 MEQ TABCR PO STA (09:41)
--- NOTE | 2023-08-12 11:48 | Discharge Summary ---
Date of Service August 12, 2023 Admission HPI Per Admitting Provider 77-year-old male with past medical significant for type 2 diabetes, diabetic retinopathy, hyperlipidemia, chronic systolic and diastolic CHF, EF 22% last echo 07/07/2023, s/p BiV ICD, hx of VT/VF s/p ICD shock in 2002,atypical atrial flutter, s/p AV emely ablation, CAD s/p CABG,hypertension, left bundle branch block, history of sinus bradycardia, Hx of LV apical thrombus on Coumadin since BPH, low back pain, depression, presents with syncope. Patient was sitting in his bed when suddenly felt discomfort in his stomach and he went to bathroom he felt dizzy and he passed out. When he woke up he found himself on the floor of the bathroom. Was profusely sweating and was nauseous and vomiting. He could not get up. his came in put on oxygen and after some time slowly start feeling better. Denies any chest pain. Similar episode happened last when he was splitting the wood he felt dizzy he went and sat on the chair. At that time he did not pass out but was profusely sweating and feeling uncomfortable. At that time also used oxygen which helped. Both episode lasted about hour. No bowel or bladder incontinence during the episode and no biting of the tongue. Currently is feeling better. Denies any headache. No runny nose or sore throat or cough. Appetite is okay. No difficulty swallowing. No shortness of breath. Currently no abdominal pain. Normal bowel and bladder movements as per patient. Currently resting comfortably and hemodynamically stable. His defibrillator was interrogated and found to have V. tach in both episodes. Defibrillators functionality for V. tach seems to be turned off for unknown reasons as per the [employer]tr[employer]. Past medical history as mentioned above Past surgical history. CABG, carpal tunnel surgery, colonoscopy, ablation of SVT, cardioversion, Medtronic defibrillator, appendectomy, tonsillectomy, varicocele excision. Social history . Quit smoking in 1997. Currently chews tobacco. Alcohol occasional. No drug use Family history. Father had liver cancer. Mother had of lung cancer. Mother had PA and hypertension. Sister had breast cancer. Brother has diabetes. Admission Exam Per Admitting Provider General- Not in distress Head- atraumatic Eyes- PERRL,. ENT- oropharynx clear Neck- supple, no JVD, . Lungs- clear to auscultation no wheezing or crackles. Heart- regular rhythm; no murmur, no gallop. Abdomen- normal bowel sounds, soft, nontender, no distension. Extremities- no pretibial edema, no erythema seen Neuro- alert, oriented x 3; PERRL,; no facial palsy; no dysarthria; non focal. Skin- warm & dry Principal Diagnosis Syncope and collapse Ventricular tachycardia Discharge Exam GENERAL: Alert and oriented x3. NAD, on RA. HEENT: No pallor, no icterus. Pupils equal, round and reactive to light. Oral mucosa moist. NECK: No JVD, no neck masses. HEART: S1 and S2 heard. Regular rate and rhythm. No murmur, no gallop. RESPIRATORY SYSTEM: Normal AP diameter. No accessory muscle use. No wheezing, no crackles. ABDOMEN: Soft, bowel sounds present, nontender, no distention. CENTRAL NERVOUS SYSTEM: No facial droop. Speech is clear. Obeys simple commands. Moves extremities. EXTREMITIES: No edema, no erythema seen. Discharge Data Allergies Allergy/AdvReac Type Severity Reaction Status Date / Time No Known Allergies Allergy Unknown Verified 05/06/23 09:29 Consultations 08/10/23 02:43 ED Decision to Admit Stat 08/10/23 08:00 Consult Cardiology Routine Ordered Studies 08/10/23 09:28 CT head/brain wo con Urgent Hospital Course (1) Syncope and collapse: Per prior attending w/ addendum: 77-year-old male with past medical significant for type 2 diabetes, diabetic retinopathy, hyperlipidemia, chronic systolic and diastolic CHF, EF 22% last echo 07/07/2023, s/p BiV ICD, hx of VT/VF s/p ICD shock in 2002,atypical atrial flutter, s/p AV emely ablation, CAD s/p CABG,hypertension, left bundle branch block, history of sinus bradycardia, Hx of LV apical thrombus on Coumadin since BPH, low back pain, depression, presents with syncope. ICD interrogation found to have V. tach. Also having elevated troponins Syncope V. tach ICD interrogation showed V. tach both times Arrhythmia occurred just below detection rate of defibrillator as per cardiology. Defibrillator reprogrammed. Echo showed severe global hypokinesis with thinning and scarring of the anterior posterior and inferoseptal wall. The left ventricle is moderately dilated. Ejection fraction 15 to 20%. Cardiology on board. Loading dose of amiodarone given, amiodarone 200 mg 4 times daily for now. Continue digoxin and metoprolol. Coumadin dose adjusted due to amiodarone drug interaction. Case discussed with cardiology recommended to monitor in tele for today and possible discharge tomorrow if no arrhthmia Clinically stable Non-ST elevated PA Troponin on admission 2006.9, trending down. Denies any chest pain cho showed severe global hypokinesis with thinning and scarring of the anterior posterior and inferoseptal wall. Continue Coumadin with INR 2.1 Continue monitor in tele History of chronic systolic and diastolic CHF Ejection fraction 15 to 20%. S/P ICD Continue Lasix , metoprolol succinate, lisinopril and digoxin Will monitor for volume overload History of apical mural thrombus on Coumadin since A flutter Continue loading dose amiodarone ,digoxin, metoprolol Coumadin 5mg given today, INR 2.1 Continue monitor PT/INR Diabetes type 2 Most recent Hab1c 8.6 Jardiance and metformin held On Tresiba 10 units daily and Ozempic weekly On Lantus and insulin sliding scale Continue monitor BS Hypertension Continue lisinopril, metoprolol succinate, terazosin, and Lasix We will monitor BPH On Proscar and terazosin Sleep apnea CPAP nightly DVT prophylaxis on Coumadin INR 2.1 Full code Disposition Plan to discharge tomorrow ADDENDUM: Patient seen and examined at bedside, was evaluated for syncope and collapse likely secondary to ventricular tachycardia. Cardiology evaluated. Patient's ICD was interrogated which showed V. tach at both times of syncope. BiV ICD has been reprogrammed. Discussed with cardiology, patient's amiodarone dose being increased, rest of the medications as prior. INR today 1.5, patient to continue with prior home Coumadin dose with close follow-up with [facility] laws in 2 to 3 days, likely his Coumadin dose will be decreased as his amiodarone dose has been increased at discharge. He is being discharged home with following instruction at the point of discharge: Follow-up with your primary care physician within a week time and likely you will need labs CBC/CMP/magnesium/phosphorus. You were evaluated for syncope and collapse likely secondary to ventricular tachycardia, your BiV ICD settings were reprogrammed, cardiology evaluated you. Follow-up with cardiology in 3 to 4 weeks time upon discharge. Because your INR was 1.5 today, continue with your home Coumadin medication for now. Visit with Coumadin clinic in 2-3 days time [this is important] and you will need repeat PT/INR and further recommendation regarding dose adjustment of your Coumadin. Your Coumadin dose likely will be decreased as your amiodarone dose has been increased at discharge. Take your medications as prescribed. Please make sure that you are able to get your medications today by calling your pharmacy before you leave the hospital so that your treatment continuity is not broken. Home Health Attestation I certify that this patient is under my care and that I, or a physicians legislative assistant working with me, had a face to-face encounter that meets the home health [id number] encounter requirements with this patient. The encounter with the patient was in whole, or in part, for the following medical condition, which is the primary reason for home health care (list medical condition): I certify that, based on my findings, the following services are medically necessary home health services: My clinical findings support the need for the above services because: Further, I certify that my clinical findings support that this patient is homebound (i.e. absences from home require considerable and taxing effort and are for medical reasons or spiritism services or infrequently or of short duration when for other reasons) because: Certification for Home Health Services: Based on the above findings, I certify that this patient is confined to the home and needs intermittent detention care, physical therapy and/or speech therapy or continues to need occupational therapy. The patient is under my care, and I have initiated the establishment of the plan of care. This patient will be followed by a physician who will periodically review the plan of care. Total Time Total Time Spent Total Time Spent (In Minutes): 45 Discharge Plan Discharge Items Patient Disposition: Home - Self-Care Reason For Visit: SYNCOPE, V TACH, NSTEMI Discharge Diagnosis: Syncope and collapse Ventricular tachycardia Activity: Resume your previous activity Non-emergency contact: Primary Care Provider Call non-emergency contact if: you have any medication questions, your symptoms worsen and your temperature is above 101 Follow-up/Referrals: Beth Mcginnis, [Primary Care Provider] - Diet: Carb Count or DM1, Heart Healthy and Low Sodium (2gm) Addtl Attending Provider Instructions: Follow-up with your primary care physician within a week time and likely you will need labs CBC/CMP/magnesium/phosphorus. You were evaluated for syncope and collapse likely secondary to ventricular tachycardia, your BiV ICD settings were reprogrammed, cardiology evaluated you. Follow-up with cardiology in 3 to 4 weeks time upon discharge. Because your INR was 1.5 today, continue with your home Coumadin medication for now. Visit with Coumadin clinic in 2-3 days time [this is important] and you will need repeat PT/INR and further recommendation regarding dose adjustment of your Coumadin. Your Coumadin dose likely will be decreased as your amiodarone dose has been increased at discharge. Take your medications as prescribed. Please make sure that you are able to get your medications today by calling your pharmacy before you leave the hospital so that your treatment continuity is not broken. Pending Studies at Discharge: Yes Stand-Alone Forms: My [facility]uso, Smoking Cessation Medications and DC Order Prescriptions: Continued furosemide 40 mg tablet 40 mg PO BID atorvastatin 80 mg tablet 80 mg PO DAILY trazodone 50 mg tablet 50 mg PO HS metoprolol succinate 50 mg tablet extended release 24 hr 25 mg PO DAILY warfarin 10 mg tablet 5 mg PO UD Rx Instructions: warfarin 10mg on Thu and Thursday and Thursday and 5mg all other days. aspirin 81 mg Tablet,Delayed Release (Dr/Ec) 81 mg PO DAILY terazosin 2 mg capsule 2 mg PO DAILY metformin 1,000 mg tablet 1,000 mg PO BID digoxin 125 mcg (0.125 mg) tablet 125 mcg PO DAILY sertraline 50 mg tablet 50 mg PO DAILY lisinopril 2.5 mg tablet 2.5 mg PO DAILY finasteride 5 mg tablet 5 mg PO DAILY Jardiance 10 mg tablet 10 mg PO DAILY Ozempic 1 mg/dose (4 mg/3 mL) pen injector 1 mg SUBCUT WK PreserVision AREDS-2 1 tab 1 tab PO BID insulin degludec [Tresiba FlexTouch U-100] 100 unit/mL (3 mL) Insulin Pen 10 unit SUBCUT DAILY Changed amiodarone 200 mg tablet 200 mg PO BID Qty: 60 0RF Discharge Orders: Discharge Order (Routine); Ordered 08/12/23 Ordered By: Silvio Lock/Other Patient Handouts: Managing Type 2 Diabetes Admission Data Admit Date/Time: 08/10/23 04:17 Attending Provider: Silvio Grajeda Admit Provider: Washington Reyes Primary Care Provider: Beth Mcginnis Other Providers: Washington Reyes ; Rehan Villanueva
[2023-08-12] MEDS ORDERED: AMIODARONE 200 MG TAB PO SCH (21:00)
== END 2023-08-12 14:45 | disposition home or self-care (01) | DRG 281 ==
LOC: ED 01:28 → SUATTDRO 04:17 → EDINP 04:17 → 2S 05:32

== ENCOUNTER 2024-01-12 12:37 | Observation (INO) ==
--- NOTE | 2024-01-11 11:40 | Anesthesiology Consultation ---
Date of Service January 11, 2024 Assessment & Plan (1) Encounter for pre-operative examination: Chart Review Chart Review: Acceptable Risk for Surgery History Surgery Operation Date: 01/12/24 14:35 Proposed Procedures p Left Second Toe Partial Amputation, Flexor Tenotomies Toes 2-5 - Brett Deal MD Height/Weight Height: 5 ft 10 in Weight: 86.183 kg Allergies Allergy/AdvReac Type Severity Reaction Status Date / Time No Known Allergies Allergy Unknown Verified 01/11/24 09:01 Medications Home Medications Medication Instructions Recorded Confirmed Last Taken PreserVision AREDS-2 1 tab PO BID 08/10/23 01/11/24 01/06/24 aspirin 81 mg tablet,delayed 81 mg PO QAM 08/10/23 01/11/24 01/06/24 release atorvastatin 80 mg tablet 80 mg PO QAM 08/10/23 01/11/24 01/06/24 digoxin 125 mcg (0.125 mg) tablet 125 mcg PO HS 08/10/23 01/11/24 01/06/24 finasteride 5 mg tablet 5 mg PO 08/10/23 01/11/24 01/06/24 furosemide 40 mg tablet 40 mg PO BID 08/10/23 01/11/24 01/06/24 insulin degludec 100 unit/mL (3 10 unit subcut [facility] 08/10/23 01/11/24 Unknown mL) subcutaneous pen (Tresiba FlexTouch U-100 insulin) lisinopril 2.5 mg tablet 2.5 mg PO QAM 08/10/23 01/11/24 01/06/24 metformin 1,000 mg tablet 1,000 mg PO BID 08/10/23 01/11/24 01/03/24 21:00 metoprolol succinate 50 mg 25 mg PO QAM 08/10/23 01/11/24 01/06/24 tablet,extended release 24 hr semaglutide 1 mg/dose (4 mg/3 mL) 1 mg subcut Q7D 08/10/23 01/11/24 Unknown subcutaneous pen injector (Ozempic) sertraline 50 mg tablet 50 mg PO HS 08/10/23 01/11/24 01/06/24 trazodone 50 mg tablet 50 mg PO HS 08/10/23 01/11/24 01/05/24 warfarin 10 mg tablet 5 mg PO UD 08/10/23 01/11/24 01/03/24 21:00 amiodarone 200 mg tablet 200 mg PO BID #60 tabs 08/12/23 01/11/24 01/06/24 dapagliflozin propanediol 10 mg 10 mg PO QAM 01/11/24 01/11/24 Unknown tablet (Farxiga) Past Medical History Medical History History of cardioversion 2020, [facility] Hx of angiography 12/2023, [facility] Paroxysmal atrial flutter LBBB (left bundle branch block) Follows with dr. bush, [facility] Apical mural thrombus History of- on chronic Coumadin Ischemic cardiomyopathy EF= 13% on 10/2020 stress test BPH (benign prostatic hyperplasia) Diabetes mellitus, type 2 Depression Anxiety Chronic systolic CHF (congestive heart failure) Severe LV dysfunction CAD (coronary artery disease) S/p 3 vessel bypass 1997 On anticoagulant therapy warfarin daily Myocardial Infarction x3--last 1997--follows with Dr. Bang Bush Hypertension Hyperlipidemia ICD (implantable cardioverter-defibrillator) in place Biventricular ICD upgrade 08/2020 Medtronic- h/o ICD discharge 10/2020 x 2 per 01/2021 ICD check Sleep apnea cpap Past Family History Family History Other No family history of adverse response to anesthesia Past Surgical History Surgical History History of amputation of great toe bilateral History of surgery left leg vein removed for bypass History of carpal tunnel surgery of right wrist History of colonoscopy History of appendectomy History of tonsillectomy and adenoidectomy History of bilateral cataract extraction History of cardiac cath x1[place] [facility], [place]G History of implantable cardioverter-defibrillator (ICD) placement inserted 01/2007, replaced 02/2016, upgraded to BiV ICD on 09/19/20--[employer] S/P triple vessel bypass [place] [facility] [place] Social History Smoking Status: Former smoker tobacco type: smokeless tobacco Do You Dip or Chew Tobacco: Yes (1 can/4-5 days; advised) Smoking End Date: 1997 Hx Alcohol Use: Yes Alcohol type: beer, wine and hard liquor alcohol intake frequency: holidays/special occasions only Hx Substance Use: No substance use type: does not use Testing Electrocardiogram Date: 08/12/23 AV paced 72 Echocardiogram Date: 08/10/23 EF: 15-20% Valvular Disease: + MR (mild)
[~2024-01-12 12:37] MED LIST: DEXAMETHASONE SOD INJ 4 MG/ML VIAL ONE; GLYCOPYRROLATE 0.2 MG/ML VIAL ONE; LIDOCAINE 2% 2 ML VIAL/AMP(20MG/ML) INFIL ONE; ONDANSETRON INJ 2 MG/ML 2 ML VIAL ONE; PROPOFOL IV EMULSION 10 MG/ML 20 ML VIAL IV ONE; fentaNYL citrate PF 100 MCG/2 ML VIAL ONE
[2024-01-12] MEDS: LR 15ML/HR IV SCH (13:20)
[2024-01-12 14:10] LABS: INR 1.1 (0.9-1.1); Partial Thromboplastin Ratio 0.9; Partial Thromboplastin Time 26 Seconds (21-31); Prothrombin Time 11.7 Seconds (9.0-12.0)
[2024-01-12] MEDS ORDERED: ROPIVACAINE 0.5% 5 MG/ML 30 ML VIAL ONE (14:46)
[2024-01-12] MEDS ORDERED: fentaNYL citrate PF 100 MCG/2 ML VIAL IV PRN (14:48)
[2024-01-12] MEDS ORDERED: ePHEDrine sulfate 50 MG/ML AMP IV PRN (14:48)
[2024-01-12] MEDS ORDERED: ONDANSETRON INJ 2 MG/ML 2 ML VIAL IV PRN ×2 (14:48→17:25)
[2024-01-12] MEDS ORDERED: ATROPINE SULFATE 0.1 MG/ML 10ML SYR IV PRN (14:48)
[2024-01-12] MEDS ORDERED: MIDAZOLAM HCL 1 MG/ML 2ML VIAL ONE (14:51)
--- NOTE | 2024-01-12 15:09 | History & Physical Bridge Note ---
Date of Service January 12, 2024 History & Physical Bridge Note I have examined the patient, reviewed the History & Physical and in the interval since the performance of the History & Physical I have noted the following changes of clinical significance: no changes noted
[2024-01-12] MEDS: ceFAZolin 2,000 MG/15 ML IV PUSH IV ONE (15:16)
--- NOTE | 2024-01-12 16:16 | Operative Report ---
Post Operative Report Pre & Post Diagnosis Operation Date: 01/12/24 14:35 Pre-Op Diagnosis: Osteomyelitis of left second toeTight long flexor tendons toes 3 and 4 left foot Post-Op Diagnosis: Same I identified the patient and participated in the time-out.: Yes Procedure Operation Date: 01/12/24 14:35 Actual Procedures p Left Second Toe Partial Amputation, Flexor Tenotomies Toes 3 and 4 - Brett Deal MD Surgeon Brett Deal MD Records Custodian Melissa Williamson no resident or fellow available Estimated Blood Loss 3 Findings Consistent with Post-Op Diagnosis Specimens Culture and biopsy left foot second toe distal phalanx, left foot second toe for specimen Anesthesia Type MAC Regional Complications none Disposition Accompanied Patient To Recovery: No Disposition: Recovery Room Indications Shane is 78. Peripheral artery disease. Injured his left second toe a couple months ago. Developed a chronic wound which progressed to radiographic osteomyelitis. Wound care management has not been successful in relieving his symptoms. I recommended surgery he agrees to proceed. He is status post bilateral big toe partial amputations. It is also noted that he has mallet toe type deformities of the second third and fourth toes and would likely benefit from flexor tenotomy's. Description of Procedure Informed consent. Patient identified. He identified the operative site as the left foot second third fourth and fifth toes. When plantar flexing the ankle there was relaxation of the third and fourth toe. Not so much for the fifth. Dorsiflexion of the ankle resulted in drawing in of the toe consistent with a tight long flexor. The second toe was to be amputated so I did not do a tenotomy there. I did not think the fifth toe was needed. There was a bulbous deformity of the end of the second toe. Chronic eschar. Fusiform swelling and mild erythema. Is also noted that he had several abrasions over the left anterior leg with some mild swelling and pinkish discoloration consistent with inflammation or possibly early cellulitis. The leg was scrubbed and then prepped and draped with Betadine in usual sterile fashion. There was no purulent drainage noted. I marked each individual toe with my initials. A preoperative surgical timeout was performed. A preop dose of IV antibiotics was given. He was positioned supine on the OR table. No tourniquet was utilized. Prepping was performed up to the knee. Bony prominences inspected and padded. Fluoroscopic guidance was utilized throughout the surgical procedure to deter mine the level of amputation. DVT prophylaxis intraoperatively with an SCD. Postoperatively mobility and mechanical devices. Patient was on Coumadin. This was held preoperatively. INR today was 1.1. There was an issue with him taking his Ozempic. We weighed out the risks and benefits which I discussed with the patient and given his cardiac history and being off of the blood thinner we felt it was in his best interest to proceed with surgery rather than wait several more days off blood thinner. Flexor tenotomy's were performed of the third and fourth toes. At the level of the main flexor crease I introduced a 15 blade knife longitudinally down to bone turned horizontally medially and laterally and release the flexor tendon. I did not straight beyond the margins of the bone. This resulted in improvement of flexor posture of both of the toes. Less downward pressure/mallet deformity with dorsiflexion. Hemostasis was achieved with pressure and a single 4-0 nylon suture was applied to each 1 for closure. I then made a longitudinal incision over the dorsal aspect of the second toe and carried it in a fishmouth fashion around the distal portion of the toe proximal to the eschar inflamed and infected area. The level for bone resection was identified and the cut was made about midway through the proximal phalanx. Fluoroscopic guidance was utilized. Then the subperiosteal dissection of the proximal phalanx was performed followed by extracapsular dissection distally to harvest out the toe. The extensor tendon was cut. The flexor tendons were cut and allowed to retract. The bone was beveled with a rasp. The distal portion of the toe was opened and revealed soft bone without purulence. A piece of bone was sent for biopsy and culture and the remainder of the toe was sent for specimen. Hemostasis with electrocautery. There was copious bleeding per present. Irrigation was performed. I then of found that a [id number] closure was most efficacious and covering everything in a tension-free fashion although a fishmouth closure could have been performed as well. The skin edges were trimmed as necessary and 3-0 nylon with horizontal mattress stitches were u tilized. The foot was cleaned with wet and dry sponges and a soft sterile dressing was applied Xeroform fluffs between the toes 4 x 4's soft wrap Jamison wrap and a postop shoe. Patient awakened from anesthesia without difficulty and taken to the recovery room in stable condition. There were no complications. Specimens were as mentioned above counts were correct and blood loss is estimated to be 3 cc. At the conclusion the operation spoke to patient's family informed of my findings and postop instructions were given. He will be admitted to the hospital. Will restart his Coumadin. Will continue him on IV antibiotics and manage his diabetes. Medicine consult. Glycemic index consult. I attest to the content of the Intraoperative Record and any orders documented t herein. Any exceptions are noted below.
--- NOTE | 2024-01-12 16:22 | Operative Report ---
Post Operative Report Pre & Post Diagnosis Operation Date: 01/12/24 14:35 Pre-Op Diagnosis: Osteomyelitis of left second toe Post-Op Diagnosis: Osteomyelitis of left second toe I identified the patient and participated in the time-out.: Yes Procedure Operation Date: 01/12/24 14:35 Actual Procedures p Left Second Toe Partial Amputation, Flexor Tenotomies Toes 2-5 - Brett Deal MD Surgeon Brett Deal M.D. Wastewater Treatment Supervisor Melissa Williamson no resident or fellow available Estimated Blood Loss 3 Findings Consistent with Post-Op Diagnosis osteo left 2nd toe Specimens Left second toe Anesthesia Type MAC Regional Description of Procedure Patient was taken to the operating room, placed under IV sedation with regional nerve block. Time out performed, prepped and draped in routine sterile fashion. I was present during the entire case, please see Dr. Deal's operative report for further detail regarding today's procedure. Patient was awakened and taken to the recovery room in stable condition. I attest to the content of the Intraoperative Record and any orders documented therein. Any exceptions are noted below.
--- NOTE | 2024-01-12 16:29 | Anesthesiology Progress Note ---
Date of Service January 12, 2024 Anesthesia Post Procedure Vital Signs Vital Signs: Temp Pulse Resp BP Pulse Ox O2 Del Method 01/12/24 13:29 Room Air 01/12/24 13:05 36.5 C 89 20 113/69 97 Room Air Transfer of Care Handoff Completed per policy Notes Mental Status: alert / awake / arousable and participated in evaluation Patient Amnestic to Procedure: Yes Nausea / Vomiting: adequately controlled Pain: adequately controlled Airway Patency, RR, SpO2: stable & adequate BP & HR: stable & adequate Hydration State: stable & adequate Anesthetic Complications: no major complications apparent and Pt Satisfied with anesthetic care
--- NOTE | 2024-01-12 16:33 | Fluoroscopy Report ---
FL toe LT 2V CLINICAL HISTORY: LT 2ND TOE PARTIAL AMPUTATION TECHNIQUE: 1 views were obtained with the C-arm in the OR with the above procedure. Total fluoroscopy time was 4.5 seconds. Radiation dose was 0.03 mGy. Comparison: Comparison is made to foot radiographs 12/16/2023 FINDINGS/IMPRESSION: Intraoperative images were obtained of amputation of the left second digit at th e mid proximal phalanx. Please correlate with intraoperative fluoroscopy and operative report. ACT 112: Negative or not required by law. Electronically signed by: Andrey Magana M.D. 01/12/2024 4:32 PM
[2024-01-12] MEDS ORDERED: NALOXONE HCL 0.4 MG/1 ML VIAL/CARP IV PRN (17:25)
[2024-01-12] MEDS ORDERED: HYDROmorphone INJ 0.5 MG/0.5 ML SYR IV PRN (17:25)
[2024-01-12] MEDS ORDERED: MAGNESIUM HYDROXIDE SUSP 30 ML UDC PO PRN (17:25)
[2024-01-12] MEDS ORDERED: bisacodyL 10 MG SUPP PR PRN (17:25)
[2024-01-12] MEDS ORDERED: HYDROmorphone INJ 1 MG/ML SYRINGE IV PRN (17:25)
[2024-01-12] MEDS ORDERED: traMADol HCL 50 MG TABLET PO PRN (17:25)
[2024-01-12] MEDS ORDERED: oxyCODONE HCL IR 5 MG TAB (IMMEDIATE RELEASE) PO PRN (17:25)
[2024-01-12] MEDS ORDERED: PHARMACY GLYCEMIC MGMT CONSULT PRN (17:25)
--- NOTE | 2024-01-12 18:35 | Pharmacy Report ---
Pharmacy Glycemic Short Note 2 - Date of Service January 12, 2024 - Glycemic Short BSG Results (Last 24 hours): 01/12/24 01/12/24 13:06 16:24 POC Glucose 146 H 108 H OUTPATIENT ANTIDIABETIC REGIMEN: * farxiga 10 mg daily, tresiba 10 units daily, metformin 1 gm bid, ozempic ASSESSMENT: * 78 year old, POD 0 - s/p toe amputation. Pharmacy consulted for glycemic management. Patient received steroids intraoperatively, anticipate steroid induced hyperglycemia. Patient did receive AM dose of home basal insulin. Will add on novolog scale weight based stress of 3 dosing. PLAN FOR INPATIENT GLYCEMIC CONTROL: * Hold outpatient oral diabetes medications * Basal insulin * Lantus 10 units daily * Bolus insulin * NovoLog per scale ACHS or Q6hrs while NPO * Goal Range: Low 110 mg/dL - High 140 mg/dL * Correction Factor: 20 mg/dL/unit * Nutritional / Prandial insulin per carb ratio of 1 unit per 7 grams CHO consumed
[2024-01-12] MEDS: SODIUM CHLORIDE 0.9% 1,000 ML IV SCH (18:38)
[2024-01-12] MEDS ORDERED: GLUCAGON FOR INJ 1 MG VIAL IM PRN (18:45)
[2024-01-12] MEDS ORDERED: DEXTROSE 50% 50 ML SYRINGE IV PRN (18:45)
[2024-01-12] MEDS ORDERED: CARBOHYDRATES FOR HYPOGLYCEMIA PO PRN (18:45)
[2024-01-12] MEDS ORDERED: GLUCOSE 10 TAB/TUBE PO PRN (18:45)
[2024-01-12] MEDS ORDERED: GLUCOSE 40% GEL 15 GM TUBE PO PRN (18:45)
[2024-01-12 19:37] LABS: Creatinine Clr Calc Pharmacy 59.1 ml/min; Est GFR (African American) 76.3 ml/min; Est GFR (Non-African American) 65.9 ml/min
--- NOTE | 2024-01-12 21:12 | Consultation ---
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 Resting comfortable. Denies any pain. Denies any fevers. No headache. Vision is okay. No runny nose or sore throat. No cough. No chest pain or shortness of breath. No nausea. No abdominal pain. Osteomyelitis of left second toe S/p partial amputation of left second toe Management as per orthopedics Diabetes Placed on insulin sliding scale Glycemic pharmacy consulted Will monitor Chronic systolic and diastolic CHF EF 15 to 20% echo July 2023 S/p biventricular ICD On digoxin, Lasix, lisinopril, metoprolol succinate Monitor for volume overload History of VT/VF S/p ICD shock in 2002 On amiodarone and metoprolol succinate CAD s/p CABG On aspirin, statin, metoprolol succinate History of left apical thrombus On Coumadin Follow PT/INR History of a flutter On amiodarone, digoxin and metoprolol On Coumadin. 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 Resting comfortable. Denies any pain. Denies any fevers. No headache. Vision is okay. No runny nose or sore throat. No cough. No chest pain or shortness of breath. No nausea. No abdominal pain. Past medical history. As mentioned above Past surgical history. CABG, carpal tunnel surgery, colonoscopy, ablation of SVT, cardioversion, Medtronic defibrillator, appendectomy, tonsillectomy, varicocele excision. Social history . Quit smoking in 1997. Currently chews tobacco. Alcohol occasional. No drug use Family history. Father had liver cancer. Mother had of lung cancer. Mother had LA and hypertension. Sister had breast cancer. Brother has diabetes. Allergies Allergy/AdvReac Type Severity Reaction Status Date / Time No Known Allergies Allergy Unknown Verified 01/12/24 13:20 Home Medications Medication Instructions Recorded Confirmed Type PreserVision AREDS-2 1 tab PO BID 08/10/23 01/12/24 History aspirin 81 mg tablet,delayed 81 mg PO QAM 08/10/23 01/12/24 History release atorvastatin 80 mg tablet 80 mg PO QAM 08/10/23 01/12/24 History digoxin 125 mcg (0.125 mg) tablet 125 mcg PO HS 08/10/23 01/12/24 History finasteride 5 mg tablet 5 mg PO HS 08/10/23 01/12/24 History furosemide 40 mg tablet 80 mg PO QAM 08/10/23 01/12/24 History insulin degludec 100 unit/mL (3 10 unit subcut QA 08/10/23 01/12/24 History mL) subcutaneous pen (Tresiba FlexTouch U-100 insulin) lisinopril 2.5 mg tablet 2.5 mg PO QAM 08/10/23 01/12/24 History metformin 1,000 mg tablet 1,000 mg PO BID 08/10/23 01/12/24 History metoprolol succinate 50 mg 25 mg PO QAM 08/10/23 01/12/24 History tablet,extended release 24 hr semaglutide 1 mg/dose (4 mg/3 mL) 1 mg subcut Q7D 08/10/23 01/12/24 History subcutaneous pen injector (Ozempic) sertraline 50 mg tablet 50 mg PO HS 08/10/23 01/12/24 History trazodone 50 mg tablet 50 mg PO HS 08/10/23 01/12/24 History warfarin 10 mg tablet 5 mg PO UD 08/10/23 01/12/24 History amiodarone 200 mg tablet 200 mg PO BID #60 tabs 08/12/23 01/12/24 Rx dapagliflozin propanediol 10 mg 10 mg PO QAM 01/11/24 01/12/24 History tablet (Farxiga) Patient History Medical History History of cardioversion 2020, [facility] Hx of angiography 12/2023, [facility] Paroxysmal atrial flutter LBBB (left bundle branch block) Follows with dr. bush, [facility] Apical mural thrombus History of- on chronic Coumadin Ischemic cardiomyopathy EF= 13% on 10/2020 stress test BPH (benign prostatic hyperplasia) Diabetes mellitus, type 2 Depression Anxiety Chronic systolic CHF (congestive heart failure) Severe LV dysfunction CAD (coronary artery disease) S/p 3 vessel bypass 1997 On anticoagulant therapy warfarin daily Myocardial Infarction x3--last 1997--follows with Dr. Bang Bush Hypertension Hyperlipidemia ICD (implantable cardioverter-defibrillator) in place Biventricular ICD upgrade 08/2020 Medtronic- h/o ICD discharge 10/2020 x 2 per 01/2021 ICD check Sleep apnea cpap Surgical History History of amputation of great toe bilateral History of surgery left leg vein removed for bypass History of carpal tunnel surgery of right wrist History of colonoscopy History of appendectomy History of tonsillectomy and adenoidectomy History of bilateral cataract extraction History of cardiac cath x1--[place] [facility] [place] st[place], had CABG History of implantable cardioverter-defibrillator (ICD) placement inserted 01/2007, replaced 02/2016, upgraded to BiV ICD on 09/19/20--Medtronic S/P triple vessel bypass @ [facility] [place] Family History Other No family history of adverse response to anesthesia Social History Smoking Status: Former smoker Tobacco Type: Cigarettes Smoking End Date: 1997; Second Hand Exposure: Yes ( smokes); Do You Dip or Chew Tobacco: Yes (1 can/4-5 days; advised); Tobacco Cessation Education Requested by Patient: No Hx Alcohol Use: Yes Alcohol type: beer, wine and hard liquor Alcohol Intake Frequency: Monthly or Less Hx Substance Use: No Preferred Language: Taiwanese Communication Ability: Effective Visual Impairment: Limited Hearing Ability: Hard of Hearing [employer] Firefighter Required: No Beliefs That Will Affect Care: None marital status: Current Living Situation: Spouse Other Information That Helps Us Care for You: No Feels Safe at Home: Yes Safety Concerns: Feels Safe At This Time Diet: regular Assistive Devices: Cane, CPAP, Glasses and Walker Review of Systems Review of Systems: All systems reviewed & are unremarkable except as noted in HPI & below Physical Exam Physical Exam: General- Not in distress. Head- atraumatic Neck- supple, no JVD. Lungs- clear to auscultation no wheezing or crackles. Heart- regular rhythm; no murmur, no gallop. Abdomen- normal bowel sounds, soft, nontender, no distension Extremities- left foot in dressing. Neuro- alert, oriented no facial palsy; no dysarthria; obeys simple commands. Results & Data Vital Signs (Past 12 Hours) Vital Signs Temp Pulse Pulse Resp BP Pulse Ox O2 Del Method 01/12/24 20:50 36.6 C 70 16 94 Room Air 01/12/24 19:50 36.7 C 71 16 94/57 L 94 Room Air 01/12/24 18:50 36.6 C 79 16 105/58 L 96 Room Air 01/12/24 18:17 70 16 124/63 98 Room Air 01/12/24 17:30 36.4 C L 70 18 112/88 98 Room Air 01/12/24 17:25 36.3 C L 71 18 109/70 96 Room Air 01/12/24 17:00 70 20 111/61 97 Room Air 01/12/24 16:50 71 18 109/65 97 Room Air 01/12/24 16:40 36.4 C L 73 16 121/69 97 Room Air 01/12/24 16:30 73 13 121/68 97 Room Air 01/12/24 16:20 36.2 C L 70 18 116/70 98 Room Air 01/12/24 13:29 Room Air 01/12/24 13:05 36.5 C 89 20 113/69 97 Room Air Diagnostic Findings Laboratory Results PT 11.7 Seconds (9.0-12.0) 01/12/24 13:02 INR 1.1 (0.9-1.1) 01/12/24 13:02 APTT 26 Seconds (21-31) 01/12/24 13:02 PTT Ratio 0.9 01/12/24 13:02 Creatinine 1.08 mg/dl (0.6-1.4) 01/12/24 19:09 Est Cr Clr Drug Dosing 59.1 ml/min 01/12/24 19:09 Est GFR ( Amer) 76.3 ml/min 01/12/24 19:09 Est GFR (Non-Af Amer) 65.9 ml/min 01/12/24 19:09 POC Glucose 164 mg/dl (70-99) H 01/12/24 20:19 Impressions Toe X-Ray 01/12/24 14:35 FL toe LT 2V CLINICAL HISTORY: LT 2ND TOE PARTIAL AMPUTATION TECHNIQUE: 1 views were obtained with the C-arm in the OR with the above procedure. Total fluoroscopy time was 4.5 seconds. Radiation dose was 0.03 mGy. Comparison: Comparison is made to foot radiographs 12/16/2023 FINDINGS/IMPRESSION: Intraoperative images were obtained of amputation of the left second digit at the mid proximal phalanx. Please correlate with intraoperative fluoroscopy and operative report. ACT 112: Negative or not required by law. Electronically signed by: Andrey Magana M.D. 01/12/2024 4:32 PM
[2024-01-12] MEDS: AMIODARONE 200 MG TAB PO SCH (21:48)
[2024-01-12] MEDS: SENNA 8.6 MG TAB PO SCH (21:50)
[2024-01-12] MEDS: FINASTERIDE 5 MG TAB PO SCH (21:50)
[2024-01-12] MEDS: DOCUSATE SODIUM 100 MG CAP PO SCH (21:50)
[2024-01-12] MEDS: traZODone HCL 50 MG TAB PO SCH (21:50)
[2024-01-12] MEDS: DIGOXIN 0.125 MG TAB PO SCH (21:51)
[2024-01-12] MEDS: WARFARIN SOD 10 MG TAB PO ONE (21:51)
[2024-01-12] MEDS: SERTRALINE HCL 50 MG TABLET PO SCH (21:54)
[2024-01-12] MEDS: INSULIN ASPART PER UNIT CHARGE SC SCH (22:03)
[2024-01-12] MEDS: ceFAZolin 2000MG 2,000 MG/15 ML SYR IV SCH (23:06)
[2024-01-12] MEDS: SODIUM CHLORIDE 0.9% 500 ML IV SCH (23:36)
[2024-01-13] MEDS ORDERED: LACTATED RINGER'S 1,000 ML IV SCH (06:00)
[2024-01-13] MEDS ORDERED: ceFAZolin 2000MG 2,000 MG/15 ML SYR IV SCH (06:00)
--- OUTSIDE RECORDS SUMMARY | 2024-01-13 06:12 | External Medical Summary | Summary of Care ---
Author Name Unknown Organization [facility] [address] [facility] [address] Phone [phone] Care Team Providers Care Shank Skinner Name Role Phone Beth Mcginnis DO Primary Care Provider [phone] Encounter Details Date Type Department Care Team (Late st Contact Info) Description 01/07/2024 Result Scan Unspecified Department Bang Mcginnis DO [address] [place] [address] <No scans attached> Allergies No known active allergiesdocumented as of this encounter (statuses as of 01/07/2024) Medications Medication Sig Dispensed Refills Start Date End Date Status OMEGA-3 FATTY ACIDS 1000 MG OR CAPSIndications:ASCVD (arteriosclerotic cardiovascular disease) 2-3 per day 0 09/29/2003 Active ASPIRIN 81 MG PO CHEWIndications:Ische lisa cardiomyopathy,DM type 2, goal A1c below 7 take one tablet daily 100 Tab 3 06/03/2011 Active LANCETS MISCIndications:DM type 2, goal A1c below 7 test blood sugars 3-4 times daily 2 Box 3 09/16/2013 Active Multiple Vitamins-Minerals (PRESERVISION AREDS 2) Capsule Take 1 Capsule by mouth in the morning and 1 Capsule before bedtime. 0 06/20/2020 Active CPAP every night at bedtime. 0 Active Nitroglycerin 0.4 MG Sublingual Tablet Sublingual (Nitrostat)Indication s:ASCVD (arteriosclerotic cardiovascular disease) Place 1 Tab under the tongue every 5 minutes as needed for Pain, Chest. Max dose 3 tablets in 15 minutes 45 Tab 3 07/26/2021 Active FreeStyle Judith 2 Sensor Use as directed . Change every 14 days 6 Each 3 03/03/2022 Active traMADol HCl 50 MG Oral Tablet (Ultram)Indications:L eft leg cellulitis TAKE 1 TABLET BY MOUTH EVERY 8 HOURS NEEDED FOR SEVERE PAIN 30 Tablet 0 03/06/2023 Active Ozempic (1 MG/DOSE) 4 MG/3ML Subcutaneous Solution Pen-injector (Semaglutide (1 MG/DOSE)) Through PAP 0 02/20/2023 Active Warfarin Sodium 10 MG Oral Tablet (Coumadin)Indications :halfway current use of anticoagulant therapy,Sustained VT (ventricular tachycardia) (HCC) TAKE 1/2 TO 1 TABLET DAILY INSTRUCTED BY THE [facility]IN [facility] 90 Tablet 3 04/07/2023 Active Atorvastatin Calcium 80 MG Oral Tablet (Lipitor) TAKE 1 TABLET EVERY DAY 90 Tablet 3 06/12/2023 Active Tresiba FlexTouch 100 UNIT/ML Subcutaneous Solution Pen-injector (Insulin Degludec) Inject 10 Units under the skin in the morning. Obtaining from PAP. 0 Active Finasteride 5 MG Oral Tablet (Proscar)Indications: Nodular prostate with urinary obstruction TAKE 1 TABLET EVERY DAY 90 Tablet 1 07/06/2023 Active metFORMIN HCl 1000 MG Oral Tablet (Glucophage) TAKE 1 TABLET TWICE DAILY 180 Tablet 2 07/13/2023 Active Sertraline HCl 25 MG Oral Tablet (Zoloft)Indications:M ild depression TAKE 1 TABLET BY MOUTH IN THE MORNING. TAKE 25 MG WITH 50 MG DAILY. 90 Tablet 1 08/05/2023 Active traZODone HCl 50 MG Oral Tablet (Desyrel)Indications: Primary insomnia Take 1 Tablet by mouth at bedtime. 90 Tablet 3 08/17/2023 Active Amiodarone HCl 200 MG Oral Tablet (Cordarone)Indication s:Ventricular tachycardia (HCC) Take 1 Tablet by mouth in the morning and 1 Tablet before bedtime. 180 Tablet 3 08/17/2023 Active Sertraline HCl 50 MG Oral Tablet (Zoloft)Indications:D epression,Anger TAKE 1 TABLET EVERY DAY 90 Tablet 3 09/10/2023 Active Digoxin 125 MCG Oral Tablet (Lanoxin)Indications: Ischemic cardiomyopathy,Heart failure, systolic, due to CAD (HCC) TAKE 1 TABLET EVERY DAY 90 Tablet 3 09/10/2023 Active Farxiga 10 MG Oral Tablet (Dapagliflozin Propanediol) Take 1 Tablet by mouth in the morning. Obtaining from PAP until 11/22/2024. 0 Active NovoLOG FlexPen 100 UNIT/ML Subcutaneous Solution Pen-injector (insulin aspart) Inject under the skin 3 units with breakfast, 5 units with lunch, and 5 units with dinner 0 Active Metoprolol Succinate ER 25 MG Oral Tablet Extended Release 24 Hour (toPROL XL)Indications:Ischem ic cardiomyopathy Take 1 Tablet by mouth in the morning. 90 Tablet 5 11/12/2023 Active Furosemide 40 MG Oral Tablet (Lasix)Indications:He art failure, systolic, due to CAD (HCC),Chronic heart failure with reduced ejection fraction and diastolic dysfunction (HCC) TAKE 1 TABLET TWICE DAILY 180 Tablet 3 11/18/2023 Active Lisinopril 2.5 MG Oral Tablet (Prinivil)Indications :Ischemic cardiomyopathy TAKE 1 TABLET EVERY DAY 90 Tablet 3 12/29/2023 Active documented as of this encounter (statuses as of 01/07/2024) Active Problems Problem Noted Date Diagnosed Date Diabetic ulcer of toe associ ated with type 2 diabetes mellitus 02/23/2023 S/P atrioventricular emely ablation 05/31/2021 Atypical atrial flutter 03/25/2021 Bradycardia, sinus 08/24/2020 LBBB (left bundle branch block) 08/24/2020 Chronic heart failure with r educed ejection fraction and diastolic dysfunction 08/24/2020 Type 2 diabetes mellitus wit h diabetic nephropathy, with long-term current use of insulin 12/01/2019 HTN, goal below 130/80 12/01/2019 ASCVD (arteriosclerotic cardiovascular disease) 12/01/2019 Low back pain with right-sided sciatica 05/24/20 18 Moderate recurrent major depression 02/11/2018 Left eye affected by moderat e nonproliferative diabetic retinopathy with macular edema 01/07/2017 Overview: ICD-10 update of inactive term Mild nonproliferative diabetic retinopathy of ri ght eye 10/15/2016 BPH with obstruction/lower urinary tract symptom s 10/16/2014 Type 2 diabetes mellitus wit h hemoglobin A1c goal of less than 8.0% 12/30/2013 Overview: ICD-10 update of inactive term Heart failure, systolic, due to CAD 09/27/2013 DYSLIPIDEMIA, GOAL LDL BELOW 70 11/08/2009 Overview: Per Lipid Taxonomy. Encounter for implantable de fibrillator 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 or check 02/15/2007 halfway current use of anticoagulant therapy 0 08/12/2005 ADVANCE DIRECTIVE INFORMATION 07/22/2005 Overview: no advance directive- has info Ischemic cardiomyopathy documented as of this encounter (statuses as of 01/07/2024) Resolved Problems Problem Noted Date Diagnosed Date Resolved Date Osteomyelitis of foot 02/23/20232022 Moderate recurrent major depression 12/01/2019 02/23/2023 Ischemic cardiomyopathy 12/01/2019 04/0 01/2023 Controlled type 2 diabetes m ellitus with insulin therapy 02/21/2019 12/01/2019 Sustained VT (ventricular tachycardia) 02/21/2019 12/01/2019 Type 2 diabetes mellitus wit h diabetic nephropathy 02/16/2019 02/23/2023 Type 2 diabetes mellitus wit h foot ulcer, with long-term current use of insulin 02/11/2018 Nonproliferative diabetic re tinopathy of left eye, with macular edema, with mild nonproliferative retinopathy 10/15/2016 02/11/2018 Nonexudative macular degeneration 10/15/2016 02/16/2019 Sebaceous cyst 11/23/2014 09/24/2017 Former smoker 03/05/2014 09/24/2017 Sustained VT (ventricular tachycardia) 02/02/2013 02/11/2018 Snoring 01/03/2013 09/24/2017 Hyperpotassemia 08/14/2010 09/24/2017 Type 2 diabetes mellitus wit h hemoglobin A1c goal of less than 7.0% 09/20/2009 12/30/2013 Overview: Per Diabetes Taxonomy. ICD-10 update of inactive term DERMATITIS DUE TO PLANT 10/03/200212/2016 Anticoagulation management encounter 05/20/2002 09/24/2017 SUPERFICIAL INJ CORNEA 11/03/200009/24 RECURR DEPR PSYCHOS-MOD 07/24/200001/22 ASCVD 02/23/2023 Type 2 diabetes mellitus wit h hemoglobin A1c goal of less than 7.0% 09/20/2009 Overview: Per Diabetes Taxonomy. ICD-10 update of inactive term HYPERLIPIDEMIA NEC-NOS 11/08 Overview: Per Lipid Taxonomy. CHF NYHA class II 09/27/2013 documented as of this encounter (statuses as of 01/07/2024) Immunizations Name Administration Dates Next Due COVID-19 mRNA, LNP-s, No Pre serve, 2-Dose Series (Pfizer) 11/19/2021,03/02/2021,02/08/2021 Pneumococcal Conjugate Vacc, 13 Valent (Prevnar) 03/12/2016 Pneumococcal Polysaccharide PPV23 (Pneumovax) 11/19/2018,01/29/2007 Season Influenza, Quad, PF, Adjuvanted, 65+ Yrs, IM (FLUAD) 09/26/2020 Seasonal Influenza, PF, 6 M & above, IM , (FluLaval or Fluzone) 08/31/2019,08/19/2018,09/24/2017 08/31/2020 Seasonal Influenza, Quadriva lent Hd (Fluzone Hd) 08/28/2023,08/08/2022,08/22/2021 Seasonal Influenza, Quadriva lent, No Preserve, IM 09/11/2016 Seasonal Influenza, Split, I IV3, With Preserve, Inj 08/13/2015,09/25/2014,08/15/2013,07/25,08/20/2011,08/28/2010,08/06/20 09 09/25/2015 TDAP (age 10 and older)(Boostrix) 02/11/2018 TDAP (age 11 and older)(Adacel) 03/27/2006 documented as of this encounter Social History Tobacco Use Types Packs/Day Years Used Date Smoking Tobacco: Former Cigarettes Q uit: 06/03/1998 Passive Smoke Exposure: Past Smokeless Tobacco: Current Snuff Comments:previous smoker up to 5 PPD for up to 40 years; currently chews 1/2 can per day Alcohol Use Standard Drinks/Week Comments Yes 0 (1 standard drink = 0.6 oz pur e alcohol) few beers here and there PHQ-2 Answer Date Recorded PHQ Adult Total Score 0 12/18/2022 Hunger Vital Sign Answer Date Recorded Within the past 12 months, y ou worried that your food would run out before you got the money to buy more. Never true 03/19/20 23 Within the past 12 months, t he food you bought just didn't last and you didn't have money to get more. Never true 03/19/2023 Sex and Gender Information Value Date Recorded Sex Assigned at Male 02/21/2019 12:17 PM EDT Gender Identity Male 02/21/2019 12:17 PM EDT Sexual Orientation Straight 02/21/2019 12 :17 PM EDT Job Start Date Occupation Industry Not on file Not on file Not on file documented as of this encounter Plan of Treatment Upcoming Encounters Date Type Department Care Team (Late st Contact Info) Description 01/21/2024 11:00 AM EST [facility], [place] [address] [facility] [address] [facility] [address] [address] 03/02/2024 11:00 AM EDT Office Visit Pharmacy, [place] [address] [facility] [address] [facility] [address] [address] 03/02/2024 12:50 PM EDT Office Visit Family Practice, [place] [address] [facility] [phone] Beth Mc[facility]innis DO [address] [facility] [address] 03/29/2024 11:00 AM EDT Office Visit Cardiology, [facility] [address] [place] [address] Ekaterina Donahue CRNP [address] [place] [address] 06/30/2024 10:00 AM EDT Cardiac Studies Cardiology, [facility] [address] [place] [address] [place] [address] [place] [address] 11/02/2024 11:40 AM EST Office Visit Sleep Disorders Ctr [facility] [address] [place] [phone] Latisha Sears DO [address] [place] [address] Health Maintenance Due Date Last Done Comments DXA Scan 1945 Zoster Vaccines (1 of 2) 1996 Hepatitis B (1 of 3 - Risk 3-dose series) 2006 COVID-19 Vaccine ( season) 2023 11/19/2021, 03/02/2021, 02/08/2021 Depression Screening 12/18/2023 12/18/2022 Diabetic Foot Exam 04/15/2024 04/15/2023, 0 07/03/2021, 07/24/2020, Additional history exists DIG LEVEL FOR MEDICATION MONITORING YEARLY 04/27/2024 04/27/2023, 07/03/2021 HbA1c 05/13/2024 11/12/2023, 10/0 04/2023, 04/27/2023, Additional history exists Diabetic Eye Exam 06/10/2024 06/10/2023, , 06/09/2023, Additional history exists Albumin/Creatinine Ratio 08/28/2024 023, 03/14/2022, 08/22/2019, Additional history exists B-12 08/28/2024 08/28/2023, 02/22, 02/27/2021, Additional history exists GFR 11/12/2024 11/12/2023, 10/0 04/2023, 04/27/2023, Additional history exists DTaP,Tdap,and Td Vaccines (3 - Td or Tdap) 02/12/2028 02/11/2018, 03/27/2006, 11/23/1995 Pneumococcal Vaccine: 65+ Years Completed 11/19/2018, 03/12/2016, 01/29/2007 Influenza Vaccine (FLU shot) Completed 04/2023, 08/08/2022, 08/22/2021, Additional history exists GARDASIL-HPV IMMUNIZATION SERIES Aged Out No longer eligible based on patient's age to complete this topic MENINGOCOCCAL (MENACTRA/MENVEO) Aged Out No longer eligible based on patient's age to complete this topic documented as of this encounter Medical Devices Not on filedocumented as of this encounter Procedures Procedure Name Priority Date/Time Associated Diagnosis Comments CARDIOLOGY SCANNED RESULT 01/07/2024 documented in this encounter Results * CARDIOLOGY SCANNED RESULT (01/07/2024) 01/07/2024 Bang GREEN documented in this encounter Advance Directives Latest Code Status on File Code Status Date Activated Date Inactivated Comments Full Code 03/25/2021 2:23 PM 03/25/2021 8:49 PM This or aleyda reflects the patients wishes and were consensually agreed upon. Question Answer Comments Discussion of Advance Directives occurred with: Not Discussed Does the patient have a Living Will? No Does the patient have Health Care Power of Ledger Poster? No Care Teams Shank Skinner Relationship Specialty Start Date End Date Beth Mcginnis DO [address] [place] [address] PCP - General 08/28/10 documented as of this encounter
--- OUTSIDE RECORDS SUMMARY | 2024-01-13 06:12 | External Medical Summary | Summary of Care ---
Author Name Unknown Organization [facility] Address [address] [place] [address] Phone [phone] Care Team Providers Care Technical Services Coordinator Name Role Phone Beth Mcginnis DO Primary Care Provider Encounter Details Date Type Department Care Team (Late st Contact Info) Description 01/06/[address] [facility] [address] [place] [address] Beth Mcginnis DO [address] [place] [address] Allergies No known active allergiesdocumented as of this encounter (statuses as of 01/08/2024) Medications Medication Sig Dispensed Refills Start Date [...] Warfarin Sodium 10 MG Oral Tablet (Coumadin)Indications :assisted current use of anticoagulant therapy,Sustained VT (ventricular [...] as of this encounter (statuses as of 01/08/2024) Active Problems Problem Noted Date Diagnosed Date [...] implantable de fibrillator 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 or check 02/15/2007 assisted current use of anticoagulant therapy 0 08/12/2005 ADVANCE DIRECTIVE INFORMATION 07/22/2005 Overview: no advance directive- has info Ischemic cardiomyopathy documented as of this encounter (statuses as of 01/08/2024) Resolved Problems Problem Noted Date Diagnosed Date [...] as of this encounter (statuses as of 01/08/2024) Immunizations Name Administration Dates Next Due COVID-19 mRNA, LNP-s, No Pre serve, 2-Dose Series ([employer]) 11/19/2021,03/02/2021,02/08/2021 Diptheria/Tetanus (Adult) 11/23/1995 Pneumococcal Conjugate Vacc, 13 Valent (Prevnar) 03/12/2016 [...] money to buy more. Never true 03/19/20 Within the past 12 months, t he [...] on file documented as of this encounter Miscellaneous Notes * Telephone Encounter - Ale Taylor RN - 01/08/2024 9:22 AM EST Last evaluation 09/29/[address] Zora Mcginnis out of office today. Please advise for procedure planned Thursday if requiring Lovenox. MTM, including to assist pending recommendation. * Telephone Encounter - Beth Mcginnis DO - 01/06/2024 3:01 PM EST This should be thru cardiology and MTM Will forward * Telephone Encounter - Jojo Saavedra OSA - 01/06/2024 2:42 PM EST Received call from Alessandra at [facility]. She states patient follows Dr. Deal forhis foot and patient is going to have an amputation on Thursday. They need to know instructions for stopping warfarin. Please call Alessandra at [phone]. Thank you. documented in this encounter Plan of Treatment Upcoming Encounters Date Type Department Care Team (Late st Contact Info) Description 01/21/2024 11:00 AM EST Anticoagulation Pharmacy, [place] [address] [facility], [place] [address] [facility] [address] [facility], [place] [address] 03/02/2024 11:00 AM EDT Office Visit Pharmacy, [place] [address] [facility], [place] [address] [facility] [address] [facility], [place] [address] 03/02/2024 12:50 PM EDT Office Visit Family Practice, [place] [address] [facility], [place] [address] Beth Mcginnis, [address] [facility], [place] [address] 03/29/2024 11:00 AM EDT Office Visit Cardiology, [facility] [address] [facility] [place] [address] Ekaterina Donahue CRNP [address] [facility] [place] [address] 06/30/2024 10:00 AM EDT Cardiac Studies Cardiology, [facility] [address] [facility] [place] [address] [facility] [address] [facility] [place] [address] 11/02/2024 11:40 AM EST Office Visit Sleep Disorders Ctr [facility] [address] [place] [phone] Victoriano Searsy Rachael, [address] [place] [address] Health Maintenance Due Date Last Done Comments DXA Scan 1945 Zoster Vaccines (1 of 2) 1996 COVID-19 Vaccine ( - season) 2023 11/19/2021, 03/02/2021, 02/08/2021 Depression Screening 12/18/2023 12/18/2022 Diabetic Foot Exam 04/15/2024 04/15/2023, 0 07/03/2021, 07/24/2020, Additional history exists DIG LEVEL FOR MEDICATION MONITORING YEARLY 04/27/2024 04/27/2023, 07/03/2021 HbA1c 05/13/2024 11/12/2023, 0 04/2023, 04/27/2023, Additional history exists Diabetic Eye Exam 06/10/2024 06/10/2023, , 06/09/2023, Additional history exists Albumin/Creatinine Ratio 08/28/2024 023, 03/14/2022, 08/22/2019, Additional history exists B-12 08/28/2024 08/28/2023, 02/22, 02/27/2021, Additional history exists GFR 11/12/2024 11/12/2023, 100 04/2023, 04/27/2023, Additional history exists DTaP,Tdap,and Td Vaccines (3 - Td or Tdap) 02/12/2028 02/11/2018, 03/27/2006, 11/23/1995 Pneumococcal Vaccine: 65+ Years Completed 11/19/2018, 03/12/2016, 01/29/2007 Influenza Vaccine (FLU shot) Completed 04/2023, 08/08/2022, 08/22/2021, Additional history exists GARDASIL-HPV IMMUNIZATION SERIES Aged Out No longer eligible based on patient's age to complete this topic Hepatitis B Aged Out No longer eligi ble based on patient's age to complete this topic MENINGOCOCCAL (MENACTRA/MENVEO) Aged Out No longer eligible based on patient's age to complete this topic documented as of this encounter Medical Devices Not on filedocumented as of this encounter Advance Directives Latest Code Status on File Code Status Date Activated Date Inactivated Comments Full Code 03/25/2021 2:23 PM 03/25/2021 8:49 PM This or aleyda reflects the patients wishes and were consensually agreed upon. Question Answer Comments Discussion of Advance Directives occurred with: Not Discussed Does the patient have a Living Will? No Does the patient have Health Care Power of Laundry Aid? No Care Teams Technical Services Coordinator Relationship Specialty Start Date End Date Beth Mcginnis DO [address] [place] [address] PCP - General 08/28/10 documented as of this encounter
--- OUTSIDE RECORDS SUMMARY | 2024-01-13 06:12 | External Medical Summary | Summary of Care ---
Author Name Unknown Organization [facility] Address [address] [place] [address] Phone [phone] Care Team Providers Care Diaphragm Builder Name Role Phone Beth Mcginnis DO Primary Care Provider Encounter Details Date Type Department Care Team (Late st Contact Info) Description 01/06/2024 Telephone [facility] [address] [place] [address] Beth Mcginnis DO [address] [place] [address] Allergies No known active allergiesdocumented as of this encounter (statuses as of 01/06/2024) Medications Medication Sig Dispensed Refills Start Date [...] Warfarin Sodium 10 MG Oral Tablet (Coumadin)Indications :[facility] current use of anticoagulant therapy,Sustained VT (ventricular [...] as of this encounter (statuses as of 01/06/2024) Active Problems Problem Noted Date Diagnosed Date [...] implantable de fibrillator 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 or check 02/15/2007 [facility] current use of anticoagulant therapy 0 08/12/2005 ADVANCE DIRECTIVE INFORMATION 07/22/2005 Overview: no advance directive- has info Ischemic cardiomyopathy documented as of this encounter (statuses as of 01/06/2024) Resolved Problems Problem Noted Date Diagnosed Date [...] as of this encounter (statuses as of 01/06/2024) Immunizations Name Administration Dates Next Due COVID-19 mRNA, LNP-s, No Pre serve, 2-Dose Series ([employer]) 11/19/2021,03/02/2021,02/08/2021 Diptheria/Tetanus (Adult) 11/23/1995 Pneumococcal Conjugate Vacc, [...] encounter Miscellaneous Notes * Telephone Encounter - Beth Mcginnis DO - 01/06/2024 3:01 PM EST This should be thru cardiology and MTM Will forward * Telephone Encounter - Jojo Saavedra OSA - 01/06/2024 2:42 PM EST Received call from Alessandra at [facility]. She states patient follows Dr. Deal forhis foot and patient is going to have an amputation on Thursday. They need to know instructions for stopping warfarin. Please call Alessandra at [phone]. Thank you. documented in this encounter Plan of Treatment Upcoming Encounters Date Type Department Care Team (Late st Contact Info) Description 01/21/2024 11:00 AM EST [facility] [place] [address] [facility] [address] [place] [address] [place] [facility] [place] [address] 03/02/2024 11:00 AM EDT Office Visit Pharmacy, [place] [address] [place] [facility] [address] [facility] [address] [place] [facility] [place] [address] 03/02/2024 12:50 PM EDT Office Visit Family Practice, [place] [address] [facility], [place] [address] Beth Mcginnis, DO [address] [place] [address] 03/29/2024 11:00 AM EDT Office Visit Cardiology, [facility] [address] [place] [address] Ekaterina Donahue CRNP [address] [place] [address] 06/30/2024 10:00 AM EDT Cardiac Studies Cardiology, [facility] [address] [place] [address] [facility] [address] [place] [address] 11/02/2024 11:40 AM EST Office Visit Sleep Disorders Ctr [facility] [address] [place] [phone] Latisha Sears DO [address] [place] [address] Health Maintenance Due Date Last Done Comments DXA Scan 1946 Zoster Vaccines (1 of 2) 1996 Hepatitis B (1 of 3 - Risk 3-dose series) 2006 COVID-19 Vaccine ( season) 2023 11/19/2021, 03/02/2021, 02/08/2021 Depression Screening 12/18/2023 12/18/2022 Diabetic Foot Exam 04/15/2024 04/15/2023, 0 07/03/2021, 07/24/2020, Additional history exists DIG LEVEL FOR MEDICATION MONITORING YEARLY 04/27/2024 04/27/2023, 07/03/2021 HbA1c 05/13/2024 11/12/2023, 100 04/2023, 04/27/2023, Additional history exists Diabetic Eye Exam 06/10/2024 06/10/2023, , 06/09/2023, Additional history exists Albumin/Creatinine Ratio 08/28/2024 023, 03/14/2022, 08/22/2019, Additional history exists B-12 08/28/2024 08/28/2023, 042 12/2021, 02/27/2021, Additional history exists GFR 11/12/2024 11/12/2023, [...] the patient have Health Care Power of Passenger Attendant? No Care Teams Diaphragm Builder Relationship Specialty Start Date End Date Beth Mcginnis DO [address] [place] [address] PCP - General 08/28/10 documented as of this encounter
--- OUTSIDE RECORDS SUMMARY | 2024-01-13 06:12 | External Medical Summary | Summary of Care ---
Author Name Unknown Organization [facility] Address [address] [place] [address] Phone [phone] Care Team Providers Care Senior Physician Name Role Phone Beth Mcginnis DO Primary Care Provider [phone] Encounter Details Date Type Department Care Team (Late st Contact Info) Description 01/06/[address] [facility] [address] [place] [address] Beth Mcginnis DO [address] [place] [address] Allergies No known active allergiesdocumented [...] Warfarin Sodium 10 MG Oral Tablet (Coumadin)Indications :penitentiary current use of anticoagulant therapy,Sustained VT (ventricular [...] implantable de fibrillator 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 or check 02/15/2007 penitentiary current use of anticoagulant therapy 0 08/12/2005 [...] mRNA, LNP-s, No Pre serve, 2-Dose Series (happn) 11/19/2021,03/02/2021,02/08/2021 Diptheria/Tetanus (Adult) 11/23/1995 Pneumococcal Conjugate Vacc, [...] PM EST Received call from Alessandra at [facility]. She states patient follows Dr. Deal forhis foot and patient is going to have an amputation on Thursday. They need to know instructions for stopping warfarin. Please call Alsesandra at [phone]. Thank you. documented in this encounter Plan of Treatment Upcoming Encounters Date Type Department Care Team (Late st Contact Info) Description 01/21/2024 11:00 AM EST [facility] [place] [address] [facility] [address] [place] [address] [place] [facility] [place] [address] 03/02/2024 11:00 AM EDT Office Visit Pharmacy, [place] [address] [place] [facility] [place] [address] [place] [facility] [address] [place] [facility] [place] [address] 03/02/2024 12:50 PM EDT Office Visit Family Practice, [place] [address] [facility], [place] [address] Beth Mcginnis, DO [address] [place] [address] 03/29/2024 11:00 AM EDT Office Visit Cardiology, [facility] [address] [place] [address] Ekaterina Donahue CRNP [address] [place] [address] 06/30/2024 10:00 AM EDT Cardiac Studies Cardiology, [facility] [address] [place] [address] [facility] [address] [place] [address] 11/02/2024 11:40 AM EST [facility] [address] [place] [phone] Latisha Sears DO [address] [place] [address] Health Maintenance Due Date Last Done Comments [...] the patient have Health Care Power of Infectious Disease Physician? No Care Teams Senior Physician Relationship Specialty Start Date End Date Beth Mcginnis DO [address] [place] [address] PCP - General 08/28/10 documented as of this encounter
--- OUTSIDE RECORDS SUMMARY | 2024-01-13 06:12 | External Medical Summary | Summary of Care ---
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 [address] 03/29/2024 11:00 AM EDT Office Visit Cardiology, [facility] [address] [place] [address] Ekaterina Donahue CRNP [address] [place] [address] 06/30/2024 10:00 AM EDT Cardiac Studies Cardiology, [facility] [address] [place] [address] [facility] [address] [place] [address] 11/02/2024 11:40 AM EST Office Visit [facility] Disorders Ctr [facility] [address] [place] [phone] Latisha Sears DO [address] [place] [address] Health Maintenance Due Date Last Done Comments [...] Procedure Name Priority Date/Time Associated Diagnosis Comments PROCEDURE SCANNED RESULT 01/06/2024 documented in this encounter Results * PROCEDURE SCANNED RESULT (01/06/2024) 01/06/2024 No Physician Data Unknown SURGERY documented in this encounter Advance Directives Latest [...] the patient have Health Care Power of Crown Ceramist? No Care Teams Epic Cadence Analyst Relationship Specialty Start Date End Date Beth Mcginnis DO [address] [place] [facility] [place] [address] PCP - General 08/28/10 documented as of this encounter
--- OUTSIDE RECORDS SUMMARY | 2024-01-13 06:12 | External Medical Summary | Summary of Care ---
Author Name Unknown Organization [facility] Address [address] [place] [address] Phone [phone] Care Team Providers Care Label Folder Name Role Phone Beth Mcginnis DO Primary Care Provider Encounter Details Date Type Department Care Team (Late st Contact Info) Description 01/06/2024 Telephone [facility] [address] [place] [address] Beth Mcginnis DO [address] [place] [address] Allergies No known active allergiesdocumented [...] Warfarin Sodium 10 MG Oral Tablet (Coumadin)Indications :[facility] current use of anticoagulant therapy,Sustained VT (ventricular [...] implantable de fibrillator 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 or check 02/15/2007 [facility] current use of anticoagulant therapy 0 08/12/2005 [...] mRNA, LNP-s, No Pre serve, 2-Dose Series ([employer]) 11/19/2021,03/02/2021,02/08/2021 Diptheria/Tetanus (Adult) 11/23/1995 Pneumococcal Conjugate Vacc, [...] encounter Miscellaneous Notes * Telephone Encounter - Mg Clemons [facility] - 01/08/2024 11:30 AM EST Discussed further with provider and due to previous history of patient performing warfarin holds without a bridge we will have patient continue without a bridge for this upcoming amputation as well. Medication Therapy Disease Management - Anticoagulation Patient: Shane Lynch | : 1945 Subjective Patient-Reported Symptoms: Patient Findings Negatives: Signs/symptoms of thrombosis, Signs/symptoms of bleeding, Change in health, Change in alcohol use, Change in activity, Upcoming invasive procedure, Missed doses, Extra doses, Change in medications, Change in diet/appetite, Bruising Objective Current Warfarin Dose As of 01/06/2024 Warfarin maintenance plan: 10 mg (10 mg x 1) every Mon, Fri; 5 mg (10 mg x 0.5) all other days INR Result As of 01/06/2024 INR goal: 2.0-3.0 INR used for dosing: No new INR was available at the time of this encounter. Assessment & Plan Warfarin Plan As of 01/06/2024 Full warfarin instructions: 15: Hold; 16: Hold; 01/09: Hold; 01/10: Hold; 01/11: Hold; 01/12: 10 mg; 01/13: 10 mg; Otherwise 10 mg every Mon, Fri; 5 mg all other days Next INR check: 01/21/2024 Repeat PT/INR in 2 week(s) Weekly dose: not changed Additional Dosing Information: Description Amiodarone 200 mg BID- dose increased 08/12/23 Mg Clemons [facility] Clinical Pharmacist 01/08/2024, 11:38 AM * Telephone Encounter - Ekaterina Donahue CRNP - 01/08/2024 9:59 AM EST Patient has a extensive cardiac history including paroxysmal A-fib in which he is on warfarin. I would recommend that patient have a Lovenox bridge due to his medical complexity. Will await MTM recommendation/instruction. Thank you, Ekaterina * Telephone Encounter - Ale Taylor RN [...] EST Received call from Alessandra at [facility]. She states patient follows Dr. Deal forhis foot and patient is going to have an amputation on Thursday. They need to know instructions for stopping warfarin. Please call Alessandra at [phone]. Thank you. documented in this encounter Plan of Treatment Upcoming Encounters Date Type Department Care Team (Late st Contact Info) Description 01/21/2024 11:00 AM EST Anticoagulation Pharmacy, [place] [address] [facility], [place] [address] [facility] [address] [facility], [place] [address] 03/02/2024 11:00 AM EDT Office Visit Pharmacy, [place] [address] [facility], [place] [address] [facility] [address] [facility], [place] [address] 03/02/2024 12:50 PM EDT Office Visit Family Practice, [place] [address] [facility], [place] [phone] Beth Mcginnis, [address] [facility], [place] [address] 03/29/2024 11:00 AM EDT Office Visit Cardiology, [facility] [address] [facility] [place] [address] Ekaterina Donahue CRNP [address] [facility] [place] [address] 06/30/2024 10:00 AM EDT Cardiac Studies Cardiology, [facility] 132 [facility] [place] [address] [facility] [place] [address] 11/02/2024 11:40 AM EST Office Visit Sleep Disorders Ctr [facility] [address] [place] [phone] Latisha Sears, [address] [place] [address] Health Maintenance Due Date Last Done Comments [...] 08/22/2019, Additional history exists B-12 08/28/2024 08/28/2023, 2 12/2021, 02/27/2021, Additional history exists GFR 11/12/2024 [...] Not on filedocumented as of this encounter Visit Diagnoses Diagnosis Atypical atrial flutter (HCC)- Primary Atrial flutter Ischemic cardiomyopathy Other specified forms of chronic ischemic heart disease documented in this encounter Advance Directives Latest [...] the patient have Health Care Power of Principal Quality Engineer? No Care Teams Label Folder Relationship Specialty Start Date End Date Beth Mcginnis DO [address] [place] [address] PCP - General 08/28/10 documented as of this encounter"
--- OUTSIDE RECORDS SUMMARY | 2024-01-13 06:12 | External Medical Summary | Summary of Care ---
Author Name Unknown Organization [facility] Address [address] [place] [address] Phone [phone] Care Team Providers Care Wool Hat Hydraulicker Name Role Phone Beth Mcginnis DO Primary Care Provider Encounter Details Date Type Department Care Team (Late st Contact Info) Description 01/06/2024 Telephone [facility] [address] [place] [address] Beth Mcginnis DO [address] [place] [address] Allergies No known active allergiesdocumented [...] mRNA, LNP-s, No Pre serve, 2-Dose Series (Belly) 11/19/2021,03/02/2021,02/08/2021 Diptheria/Tetanus (Adult) 11/23/1995 Pneumococcal Conjugate Vacc, [...] encounter Miscellaneous Notes * Telephone Encounter - Ekaterina Donahue CRNP [...] PM EST Received call from Alessandra at [facility]. She states patient follows Dr. Deal forhis foot and patient is going to have an amputation on Thursday. They need to know instructions for stopping warfarin. Please call Alessandra at [phone]. Thank you. documented in this encounter Plan of Treatment Upcoming Encounters Date Type Department Care Team (Late st Contact Info) Description 01/21/2024 11:00 AM EST Anticoagulation Pharmacy, [place] [address] [facility] [place] [address] [facility] [address] [place] [facility] [address] 03/02/2024 11:00 AM EDT Office Visit Pharmacy, [place] [address] [facility] [address] [facility] [address] [facility] [place] [address] 03/02/2024 12:50 PM EDT Office Visit Family Practice, [place] [address] [facility] [address] Beth [facility]innis DO [address] [facility] [address] 03/29/2024 11:00 AM EDT Office Visit Cardiology, [facility] [address] [place] [address] Ekaterina Donahue CRNP [address] [place] [address] 06/30/2024 10:00 AM EDT Cardiac Studies Cardiology, [facility] [place] [address] [facility] [address] [place] [address] 11/02/2024 11:40 AM EST Office Visit [facility] Disorders Ctr [facility] [address] [facility] [place] [phone] Latisha Sears, [address] [facility] [place] [address] Health Maintenance Due Date Last Done Comments DXA Scan 1945 Zoster Vaccines (1 of 2) 1996 COVID-19 Vaccine ( season) 2023 11/19/2021, 03/02/2021, [...] the patient have Health Care Power of Hydraulic Tester? No Care Teams Wool Hat Hydraulicker Relationship Specialty Start Date End Date Beth Mcginnis DO [address] [place] [address] PCP - General 08/28/10 documented as of this encounter
[2024-01-13 07:51] LABS: Hematocrit (blood only) 34.4 % (42.0-52.0); Hemoglobin 11.5 g/dl (14.0-18.0); Mean Corpuscular Hemoglobin 29.6 pg (25.0-34.0); Mean Corpuscular Hgb Conc 33.4 g/dL (32.0-36.0); Mean Corpuscular Volume 88.4 fL (80.0-100.0); Mean Platelet Volume 9.5 fL (9.4-12.4); Platelet Count 177 K/uL (130-400); RDW Standard Deviation 51.7 fL (36.4-46.3); Red Blood Count 3.89 M/uL (4.70-6.10); White Blood Count 7.65 K/ul (4.8-10.8)
[2024-01-13 08:08] LABS: BUN Creatinine Ratio 14.9 (10-20); Calcium 8.2 mg/dl (8.6-10.3); Est GFR (African American) 71.5 ml/min; Est GFR (Non-African American) 61.7 ml/min; Potassium 3.9 mmol/L (3.5-5.1)
[2024-01-13] MEDS: METOPROLOL SUCC 25MG EXT REL TAB PO SCH (08:30)
[2024-01-13] MEDS: FUROSEMIDE 80 MG TAB PO SCH (08:30)
[2024-01-13] MEDS: CEROVITE ADV FORMULA TAB PO SCH (08:30)
[2024-01-13] MEDS: lisinopril 2.5 MG TAB PO SCH (08:30)
[2024-01-13] MEDS: TAMSULOSIN HCL 0.4 MG CAP PO PRN (08:30)
[2024-01-13] MEDS: MULTIVITAMIN TAB PO SCH (08:30)
[2024-01-13] MEDS: ASPIRIN 81 MG ECTAB PO SCH (08:30)
[2024-01-13] MEDS: ATORVASTATIN 40 MG TAB PO SCH (08:31)
[2024-01-13] MEDS: LANTUS PER UNIT CHARGE SC SCH (08:34)
[2024-01-13] MEDS ORDERED: NON-FORMULARY MEDICATION (Dapagliflozin Propanediol [Farxiga] 10 mg Tablet) PO SCH (09:00)
--- NOTE | 2024-01-13 09:28 | Orthopedic Progress Note ---
Date of Service January 13, 2024 Assessment & Plan (1) Diabetic ulcer of toe of left foot: Plan: Postop day 1-left second toe amputation, flexor tenotomy's on toes [address] on January 12, 2024 -He may weight-bear as tolerated with the assistance of a cane or walker. -Postop shoe on left foot at all times when out of bed. -Encourage strict elevation of the left foot above his heart to relieve swelling. -Ice as needed for pain or swelling. -His warfarin was continued last evening. He will take another 10 mg today. -AV impulse boots were also used on the right foot during inpatient stay. -His home medications were continued. -Hospitalist consult was placed for medical management while inpatient. Appreciate assistance. -Glycemic control consult placed for management of diabetes. Appreciate assistance. -Ancef was continued during his inpatient stay and he will be sent home on Bactrim for a week to 10 days treatment of any residual infection. -PT and OT today. -If safe out of bed then he may be discharged to home today. -Discharge instructions were reviewed. -Findings discussed with Dr. Deal. -Follow-up as outpatient as scheduled. Admission and Anticipated Discharge Date Admission Date: January 12, 2024 Subjective Patient is doing well. Resting in bed. His left leg is hanging off the bed. Denies any pain in the left foot. His postop shoe was in place. He states that he did have breakfast this morning and did well with that but it was "lousy". Denies any postoperative nausea or vomiting. Denies any lightheadedness or dizziness. States he has been out of bed ambulating in the room with his cane. Physical Exam Musculoskeletal: Exam of his left foot: No significant edema into the left foot or lower leg. Calf is supple and nontender. Postop shoe was in place. He is able to wiggle his toes. He has no sense of feeling when touching his toes which is normal for him. There is no significant edema of the remaining 3 toes that are visible through the dressing. Dressing is clean, dry and intact. Capillary fill is brisk in the toes. Distal pulses are trace. He is able to independently lift his leg and bend his knee. Results & Data Vital Signs (Past 12 Hours) Vital Signs Temp Pulse Pulse Pulse Resp BP BP 01/13/24 07:46 36.9 C 70 16 110/70 01/13/24 05:04 36 C L 78 18 106/61 01/13/24 01:46 103/59 L 01/13/24 00:14 93/55 L 01/12/24 23:05 36.8 C 75 18 77/42 L 01/12/24 21:51 74 Pulse Ox O2 Del Method 01/13/24 07:46 99 Room Air 01/13/24 05:04 99 Room Air 01/13/24 01:46 01/13/24 00:14 01/12/24 23:05 100 Room Air 01/12/24 21:51 Laboratory Results 01/13/24 01/13/24 01/12/24 Range/Units 07:52 07:12 20:19 WBC 7.65 (4.8-10.8) K/ul RBC 3.89 L (4.70-6.10) M/uL Hgb 11.5 L (14.0-18.0) g/dl Hct 34.4 L (42.0-52.0) % MCV 88.4 (80.0-100.0) fL MCH 29.6 (25.0-34.0) pg MCHC 33.4 (32.0-36.0) g/dL RDW Std Deviation 51.7 H (36.4-46.3) fL RDW Coeff of Ade 16.0 H (11.5-14.5) % Plt Count 177 (130-400) K/uL MPV 9.5 (9.4-12.4) fL PT (9.0-12.0) Seconds INR (0.9-1.1) APTT (21-31) Seconds PTT Ratio Sodium 137 (136-145) mmol/L Potassium 3.9 (3.5-5.1) mmol/L Chloride 106 (98-107) mmol/L Carbon Dioxide 25 (21-32) mmol/L Anion Gap 6 (3-11) BUN 17 (6-23) mg/dl Creatinine 1.14 (0.6-1.4) mg/dl Est Cr Clr Drug Dosing 56.0 ml/min Est GFR ( Amer) 71.5 ml/min Est GFR (Non-Af Amer) 61.7 ml/min BUN/Creatinine Ratio 14.9 (10-20) Glucose 146 H (70-99(Fasting)) mg/dl POC Glucose 154 H 164 H (70-99) mg/dl Calcium 8.2 L (8.6-10.3) mg/dl 01/12/24 01/12/24 01/12/24 Range/Units 19:09 16:24 13:06 WBC (4.8-10.8) K/ul RBC (4.70-6.10) M/uL Hgb (14.0-18.0) g/dl Hct (42.0-52.0) % MCV (80.0-100.0) fL MCH (25.0-34.0) pg MCHC (32.0-36.0) g/dL RDW Std Deviation (36.4-46.3) fL RDW Coeff of Ade (11.5-14.5) % Plt Count (130-400) K/uL MPV (9.4-12.4) fL PT (9.0-12.0) Seconds INR (0.9-1.1) APTT (21-31) Seconds PTT Ratio Sodium (136-145) mmol/L Potassium (3.5-5.1) mmol/L Chloride (98-107) mmol/L Carbon Dioxide (21-32) mmol/L Anion Gap (3-11) BUN (6-23) mg/dl Creatinine 1.08 (0.6-1.4) mg/dl Est Cr Clr Drug Dosing 59.1 ml/min Est GFR ( Amer) 76.3 ml/min Est GFR (Non-Af Amer) 65.9 ml/min BUN/Creatinine Ratio (10-20) Glucose (70-99(Fasting)) mg/dl POC Glucose 108 H 146 H (70-99) mg/dl Calcium (8.6-10.3) mg/dl 01/12/24 Range/Units 13:02 WBC (4.8-10.8) K/ul RBC (4.70-6.10) M/uL Hgb (14.0-18.0) g/dl Hct (42.0-52.0) % MCV (80.0-100.0) fL MCH (25.0-34.0) pg MCHC (32.0-36.0) g/dL RDW Std Deviation (36.4-46.3) fL RDW Coeff of Ade (11.5-14.5) % Plt Count (130-400) K/uL MPV (9.4-12.4) fL PT 11.7 (9.0-12.0) Seconds INR 1.1 (0.9-1.1) APTT 26 (21-31) Seconds PTT Ratio 0.9 Sodium (136-145) mmol/L Potassium (3.5-5.1) mmol/L Chloride (98-107) mmol/L Carbon Dioxide (21-32) mmol/L Anion Gap (3-11) BUN (6-23) mg/dl Creatinine (0.6-1.4) mg/dl Est Cr Clr Drug Dosing ml/min Est GFR ( Amer) ml/min Est GFR (Non-Af Amer) ml/min BUN/Creatinine Ratio (10-20) Glucose (70-99(Fasting)) mg/dl POC Glucose (70-99) mg/dl Calcium (8.6-10.3) mg/dl Microbiology 01/12/24 16:07 Gram Stain - Final Foot,Left Aerobic and Anaerobic Culture - Preliminary Staphylococcus species (1) Diabetic ulcer of toe of left foot Diabetes mellitus type: type 2 Non-pressure ulcer stage: with fat layer exposed Qualified Code(s): E11.621 - Type 2 diabetes mellitus with foot ulcer; L97.522 - Non-pressure chronic ulcer of other part of left foot with fat layer exposed
--- NOTE | 2024-01-13 10:04 | Discharge Summary ---
Date of Service January 13, 2024 Discharge Data Consultations 01/12/24 17:25 Consult Hospitalist Routine Procedures Performed Operation Date: 01/12/24 14:35 Actual Procedures p Left Second Toe Partial Amputation, Flexor Tenotomies Toes 3 and 4 - Brett Deal MD Hospital Course (1) Diabetic ulcer of toe of left foot: Patient was kept in observation at [facility] after undergoing an elective left toe amputation, flexor tenotomy on toes [address] Deal in January 12, 2024. The surgery was performed with MAC anesthesia and peripheral nerve block. He tolerated the procedure well without any intraoperative complications. He was continued on Ancef every 8 hours which was started preoperatively for 24 hours after surgery. He was allowed to weight- bear as tolerated on left foot with postop shoe in place with the assistance of walker or cane. He ambulated in his room. Strict elevation was encouraged for swelling control of the foot. His postop dressings were removed. 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 Hospice consult was placed for postoperative medical management. Glycemic control consult was placed for management of his diabetes while inpatient. He was seen and evaluated by physical therapy and Occupational Therapy and was deemed safe for discharge to his home. He was discharged to his home in stable condition on January 13, 2024. He was given a prescription for Bactrim for 10 days after surgery. This was sent to his pharmacy. Discharge instructions were reviewed. All questions were answered.
--- NOTE | 2024-01-13 13:28 | Hospitalist Progress Note ---
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 . Osteomyelitis of left second toe S/p partial amputation of left second toe PT OT Dressing changes as per orthopedics Follow-up with PCP and orthopedics Type II diabetes Placed on insulin sliding scale Glycemic pharmacy consulted Will monitor Chronic systolic and diastolic CHF EF 15 to 20% echo July 2023 S/p biventricular ICD On digoxin, Lasix, lisinopril, metoprolol succinate Monitor for volume overload History of VT/VF S/p ICD shock in 2002 On amiodarone and metoprolol succinate CAD s/p CABG On aspirin, statin, metoprolol succinate History of left apical thrombus On Coumadin History of a flutter On amiodarone, digoxin and metoprolol On Coumadin. Hypertension On lisinopril, metoprolol XL, and Lasix BPH On Proscar Sleep apnea CPAP nightly Patient plan to be discharged to home by primary team. Discussed with patient regarding close follow-up with primary care doctor. He verbalized understanding. Admission and Anticipated Discharge Date Admission Date: January 12, 2024 Subjective Patient seen and examined at bedside. He appears to be comfortable; not in distress. Reports that he is getting discharged today Review of Systems Review of Systems: All systems reviewed & are unremarkable except as noted in Subjective Physical Exam Physical Exam: General- Not in distress. Head- atraumatic Neck- supple, no JVD. Lungs- clear to auscultation no wheezing or crackles. Heart- regular rhythm; no murmur, no gallop. Abdomen- normal bowel sounds, soft, nontender, no distension Extremities- left foot in dressing. Neuro- alert, oriented no facial palsy; no dysarthria; obeys simple commands. Results & Data Results & Data Vital Signs (Past 12 Hours) Vital Signs Temp Pulse Pulse Pulse Resp BP BP 01/13/24 10:06 36.9 C 70 78 70 16 106/61 110/70 01/13/24 07:46 36.9 C 70 16 110/70 01/13/24 05:04 36 C L 78 18 106/61 01/13/24 01:46 103/59 L Pulse Ox O2 Del Method 01/13/24 10:06 99 01/13/24 07:46 99 Room Air 01/13/24 05:04 99 Room Air 01/13/24 01:46
== END 2024-01-13 11:45 | disposition home or self-care (01) ==
LOC: ASU 12:37 → PACUINP 12:37 → 3N 18:09

== ENCOUNTER 2025-01-19 11:47 | Inpatient (IN) ==
--- NOTE | 2025-01-19 11:59 | Emergency Department Note ---
Impression & Plan AMS (altered mental status), Weakness, Fall ED Provider Note NAME: SHANNON MARCELINO AGE: 79 SEX: M : 1945 ARRIVES VIA: Ambulance INFORMANT: Patient ED PROVIDER(S): Christiano Gusman DO CHIEF COMPLAINT: Altered mental status, fall, nonverbal HPI: Patient is a 79-year-old male with past medical history of diabetes, syncope, ICD, paroxysmal a flutter who presents to the ER for a fall. EMS provides additional history and notes that upon arrival patient was nonverbal but was able to follow simple commands. This did gradually improve. Per report was sitting at the computer and heard a thud. She turned around and he was on the ground. He did not appear to pass out. Patient denies any head pain or neck pain. No chest pain or shortness of breath. No belly pain. No nausea, vomiting, or diarrhea. No dysuria, urgency, or frequency. No other exacerbating or remitting factors. ADDITIONAL HISTORY OBTAINED: Additional history was obtained from who was present at bedside later and noted that patient fell to the ground and was awake but not talking. Chronic Medical/Social Conditions Affecting Care: Per HPI PAST MEDICAL HISTORY:See Below PAST SURGICAL HISTORY:See Below FAMILY HISTORY:See Below SOCIAL HISTORY:See Below HOME MEDICATIONS:See Below ALLERGIES:See Below VITALS:See Below PHYSICAL EXAMINATION: GENERAL: Sitting up in bed, alert, well appearing, well nourished, no distress, non-toxic HEAD: NC/AT EYE EXAM: normal conjunctiva. PERRL and EOM's grossly intact. OROPHARYNX: no exudate, no erythema, lips, buccal mucosa, and tongue normal and mucous membranes are moist NECK: supple, no nuchal rigidity, no adenopathy, non-tender LUNGS: Clear to auscultation. Normal chest wall mechanics HEART: no murmurs, S1 normal and S2 normal ABDOMEN: abdomen soft, non-tender, normo-active bowel sounds, no masses, no rebound or guarding. BACK: Back is symmetrical on inspection and there is no deformity, no midline tenderness, no CVA tenderness. UPPER EXTREMITIES: upper extremities are grossly normal. LOWER EXTREMITIES: Mild pitting edema in lower extremities NEURO EXAM: Oriented to person but not year, cranial nerves II-XII grossly intact, normal speech, no gross weakness of arms, no gross weakness of legs. No drift. Finger to nose intact. Gross sensation intact. MEDICAL DECISION MAKING: Patient is a 79-year-old male who presents ER for the below stated complaint. IV was established and blood work was obtained. Labs show no significant leukocytosis. Mild anemia at 11.7. INR 2.0. BMP with mild hypokalemia at 3.3. LFTs and bilirubin were unremarkable. Lipase is normal. Troponin was negative. UA was clean. CT head and cervical spine was obtained and unremarkable. Patient had an episode where he was awake per EMS following commands but nonverbal. Question if this was TIA. ICD was interrogated and I spoke with [employer] rep Frazier who notes that the only arrhythmias were earlier this month in early December where he had 2 episodes of V. tach which were paced. Patient was updated bedside Consults/Care Managements Discussions: Per [facility] Triage Nursing notes reviewed. Limited review of prior medical records performed Vital Signs: reviewed and remarkable for no significant abnormalities Differential diagnosis: Differential diagnoses include major intracranial, cervical, spinal, thoracic, abdominal, pelvic and neurologic injury. Fracture, contusion, sprain, strain, laceration, abrasions included as well. ER treatment provided: See below Diagnostics interpreted by me include EKG and cardiac monitoring as listed below: -Cardiac Monitoring: An order was placed for continuous cardiac monitoring. The monitor shows a rate of 80 with sinus rhythm. -ECG: Paced rate 83 Normal axis No PVCs QTc 566 -Laboratory studies:Interpreted by me as stated above in MDM and shown below. Imaging studies: Xrays: As interpreted by me: Portable AP upright 1 view of the chest shows no focal infiltrate CTs show: CT of the head and cervical spine was negative per radiology Procedures:none Critical Care: None Past Med/Surg History Problem List (Updated 01/19/25 @ 18:04 by Christiano Gusman DO) Fall (Acute) Weakness (Acute) AMS (altered mental status) (Acute) Stroke-like episode Osteomyelitis Traumatic open wound of left lower leg with delayed healing (Acute) Diabetic ulcer of toe of left foot (Acute) Biventricular ICD (implantable cardioverter-defibrillator) in place Syncope (Acute) Ventricular tachycardia (Acute) Syncope and collapse Syncope Cellulitis of leg, left PAD (peripheral artery disease) (Acute) Diabetic ulcer of left heel (Acute) Diabetic ulcer of left great toe (Acute) Diabetic ulcer of right great toe (Acute) Osteomyelitis (Acute) Diabetic foot ulcer Diabetic ulcer of toe associated with diabetes mellitus due to underlying condition, limited to breakdown of skin Encounter for pre-operative examination Umbilical hernia (Chronic) ICD (implantable cardioverter-defibrillator) in place Biventricular ICD upgrade 08/2020 Medtronic- h/o ICD discharge 10/2020 x 2 per 01/2021 ICD check Sleep apnea cpap BPH (benign prostatic hyperplasia) Hypertension Chronic systolic CHF (congestive heart failure) Severe LV dysfunction Paroxysmal atrial flutter Ischemic cardiomyopathy EF= 13% on 10/2020 stress test Diabetes mellitus, type 2 Medical History History of cardioversion 2020, [facility] Hx of angiography 12/2023, [facility] Paroxysmal atrial flutter LBBB (left bundle branch block) Follows with dr. bush, [facility] Apical mural thrombus History of- on chronic Coumadin Ischemic cardiomyopathy EF= 13% on 10/2020 stress test BPH (benign prostatic hyperplasia) Diabetes mellitus, type 2 Depression Anxiety Chronic systolic CHF (congestive heart failure) Severe LV dysfunction CAD (coronary artery disease) S/p 3 vessel bypass 1997 On anticoagulant therapy warfarin daily Myocardial Infarction x3--last 1997--follows with Dr. Bang [place] Hypertension Hyperlipidemia ICD (implantable cardioverter-defibrillator) in place Biventricular ICD upgrade 08/2020 Medtronic- h/o ICD discharge 10/2020 x 2 per 01/2021 ICD check Sleep apnea cpap Surgical History History of amputation of great toe bilateral History of surgery left leg vein removed for bypass History of carpal tunnel surgery of right wrist History of colonoscopy History of appendectomy History of tonsillectomy and adenoidectomy History of bilateral cataract extraction History of cardiac cath x1--1997 @ [facility] [place]--no stents, had CABG History of implantable cardioverter-defibrillator (ICD) placement inserted 01/2007, replaced 02/2016, upgraded to BiV ICD on 09/19/20--Medtronic S/P triple vessel bypass @ [facility] [place] 1997 Family History Other No family history of adverse response to anesthesia Social History Smoking Status: Never smoker Tobacco Type: Cigarettes Second Hand Exposure: Yes ( smokes); Do You Dip or Chew Tobacco: Yes (1 can/4-5 days; advised); Hx Alcohol Use: Yes Alcohol type: beer Alcohol Intake Frequency: Monthly or Less Hx Substance Use: No Preferred Language: Yoruba Communication Ability: Effective Visual Impairment: Limited Hearing Ability: Hard of Hearing [employer] Required: No Beliefs That Will Affect Care: None marital status: Current Living Situation: Spouse Other Information That Helps Us Care for You: No Feels Safe at Home: Yes Safety Concerns: Feels Safe At This Time Diet: regular Assistive Devices: Cane and Walker Allergies Allergies Allergy/AdvReac Type Severity Reaction Status Date / Time No Known Allergies Allergy Unknown Verified 01/12/24 13:20 Home Meds Home Medications Medication Instructions Recorded Confirmed PreserVision AREDS-2 1 tab PO BID 08/10/23 01/19/25 aspirin 81 mg tablet,delayed 81 mg PO [facility] 08/10/23 01/19/25 release atorvastatin 80 mg tablet 80 mg PO M 08/10/23 01/19/25 digoxin 125 mcg (0.125 mg) tablet 125 mcg PO 08/10/23 01/19/25 finasteride 5 mg tablet 5 mg PO 08/10/23 01/19/25 furosemide 40 mg tablet 80 mg PO [facility] 08/10/23 01/19/25 insulin degludec 100 unit/mL (3 10 unit subcut [facility] 08/10/23 01/19/25 mL) subcutaneous pen (Tresiba FlexTouch U-100 insulin) metformin 1,000 mg tablet 1,000 mg PO BID 08/10/23 01/19/25 metoprolol succinate 50 mg 25 mg PO M 08/10/23 01/19/25 tablet,extended release 24 hr semaglutide 1 mg/dose (4 mg/3 mL) 1 mg subcut Q7D 08/10/23 01/19/25 subcutaneous pen injector (Ozempic) sertraline 50 mg tablet 50 mg PO 08/10/23 01/19/25 warfarin 10 mg tablet 5 mg PO UD 08/10/23 01/19/25 dapagliflozin propanediol 10 mg 10 mg PO QAM 01/11/24 01/19/25 tablet (Farxiga) Previous Rx's Medication Instructions Recorded amiodarone 200 mg tablet 200 mg PO BID #60 tabs 08/12/23 Results & Data (ED) Vital Signs Vital Signs - 24 hr 01/19/25 11:14 01/19/25 11:14 01/19/25 11:14 Temperature 37.0 C 37.0 C 37.0 C Temperature Source Oral Oral Pulse Rate 74 74 Pulse Rate [Right Brachial] 74 Pulse Rhythm Regular Pulse Rhythm [Right Brachial] Regular Pulse Strength Normal Pulse Strength [Right Brachial] Normal Respiratory Rate 19 19 19 Respiratory Effort / Characteristics Non-Labored Non-Labored Respiratory Depth Normal Normal Respiratory Pattern Regular Regular Blood Pressure 117/77 117/74 Blood Pressure [Right Arm] Blood Pressure Mean 88 Blood Pressure Mean [Right Arm] Blood Pressure Position Lying Blood Pressure Position [Right Arm] Pulse Oximetry 99 99 99 Oxygen Delivery Method Room Air Room Air Room Air Oxygen Flow Rate 0 Sepsis Recent Fever Within 48 Hours No Sepsis New/Unexplained Change in Mental Status N/A Sepsis Action Taken by Nursing No Action Required 01/19/25 11:14 01/19/25 11:14 01/19/25 11:14 Temperature 37.0 C Temperature Source Oral Pulse Rate Pulse Rate [Right Brachial] 74 Pulse Rhythm Pulse Rhythm [Right Brachial] Regular Pulse Strength Pulse Strength [Right Brachial] Normal Respiratory Rate 19 Respiratory Effort / Characteristics Non-Labored Respiratory Depth Normal Respiratory Pattern Regular Blood Pressure Blood Pressure [Right Arm] 117/74 Blood Pressure Mean Blood Pressure Mean [Right Arm] 88 Blood Pressure Position Blood Pressure Position [Right Arm] Lying Pulse Oximetry 99 99 Oxygen Delivery Method Room Air Room Air Room Air Oxygen Flow Rate Sepsis Recent Fever Within 48 Hours Sepsis New/Unexplained Change in Mental Status Sepsis Action Taken by Nursing 01/19/25 11:56 01/19/25 11:56 01/19/25 12:11 Temperature 37.0 C Temperature Source Oral Pulse Rate 86 Pulse Rate [Right Brachial] 74 Pulse Rhythm Pulse Rhythm [Right Brachial] Regular Pulse Strength Pulse Strength [Right Brachial] Normal Respiratory Rate 19 Respiratory Effort / Characteristics Non-Labored Respiratory Depth Normal Respiratory Pattern Regular Blood Pressure Blood Pressure [Right Arm] 117/74 Blood Pressure Mean Blood Pressure Mean [Right Arm] 88 Blood Pressure Position Blood Pressure Position [Right Arm] Pulse Oximetry 99 99 Oxygen Delivery Method Room Air Room Air Oxygen Flow Rate Sepsis Recent Fever Within 48 Hours Sepsis New/Unexplained Change in Mental Status Sepsis Action Taken by Nursing 01/19/25 12:14 01/19/25 13:00 01/19/25 13:14 Temperature Temperature Source Pulse Rate Pulse Rate [Right Brachial] 79 70 75 Pulse Rhythm Pulse Rhythm [Right Brachial] Regular Regular Regular Pulse Strength Pulse Strength [Right Brachial] Normal Normal Normal Respiratory Rate 16 24 18 Respiratory Effort / Characteristics Non-Labored Non-Labored Non-Labored Respiratory Depth Normal Normal Normal Respiratory Pattern Regular Regular Regular Blood Pressure Blood Pressure [Right Arm] 121/67 107/91 124/69 Blood Pressure Mean Blood Pressure Mean [Right Arm] 85 96 87 Blood Pressure Position Blood Pressure Position [Right Arm] Lying Lying Lying Pulse Oximetry 97 100 98 Oxygen Delivery Method Room Air Room Air Room Air Oxygen Flow Rate Sepsis Recent Fever Within 48 Hours Sepsis New/Unexplained Change in Mental Status Sepsis Action Taken by Nursing 01/19/25 14:00 01/19/25 15:00 01/19/25 15:30 Temperature Temperature Source Pulse Rate Pulse Rate [Right Brachial] 78 74 73 Pulse Rhythm Pulse Rhythm [Right Brachial] Regular Pulse Strength Pulse Strength [Right Brachial] Normal Respiratory Rate 18 26 H 23 Respiratory Effort / Characteristics Non-Labored Non-Labored Spontaneous Non-Labored Spontaneous Respiratory Depth Normal Normal Normal Respiratory Pattern Regular Blood Pressure Blood Pressure [Right Arm] 105/58 L 119/71 129/79 Blood Pressure Mean Blood Pressure Mean [Right Arm] 73 87 95 Blood Pressure Position Blood Pressure Position [Right Arm] Lying Semi-fowlers Semi-fowlers Pulse Oximetry 98 95 99 Oxygen Delivery Method Room Air Room Air Room Air Oxygen Flow Rate Sepsis Recent Fever Within 48 Hours Sepsis New/Unexplained Change in Mental Status Sepsis Action Taken by Nursing Laboratory Data 01/19/25 12:00 01/19/25 14:17 Lab Results 01/19/25 01/19/25 01/19/25 Range/Units 12:00 12:15 14:17 WBC 6.44 (4.8-10.8) K/ul RBC 4.02 L (4.70-6.10) M/uL Hgb 11.7 L (14.0-18.0) g/dl Hct 35.0 L (42.0-52.0) % MCV 87.1 (80.0-100.0) fL MCH 29.1 (25.0-34.0) pg MCHC 33.4 (32.0-36.0) g/dL RDW Std Deviation 48.1 H (36.4-46.3) fL RDW Coeff of Ade 15.2 H (11.5-14.5) % Plt Count 198 (130-400) K/uL MPV 10.1 (9.4-12.4) fL Immature Gran % (Auto) 0.3 % Neut % (Auto) 69.9 % Lymph % (Auto) 18.5 % [place] % (Auto) 8.5 % Eos % (Auto) 2.3 % Baso % (Auto) 0.5 % Neut # (Auto) 4.50 (1.40-6.50) K/uL Lymph # (Auto) 1.19 L (1.20-3.40) K/uL [place] # (Auto) 0.55 (0.11-0.59) K/uL Eos # (Auto) 0.15 (0.00-0.50) K/uL Baso # (Auto) 0.03 (0.00-0.20) K/uL Immature Gran # (Auto) 0.02 (0.01-0.20) K/uL Sodium 140 (136-145) mmol/L Potassium TNP 3.3 L Chloride 104 (98-107) mmol/L Carbon Dioxide 26 (21-32) mmol/L Anion Gap 10 (3-11) BUN 19 (6-23) mg/dl Creatinine 1.00 (0.6-1.4) mg/dl Est Cr Clr Drug Dosing 64.2 ml/min eGFR 77.04 BUN/Creatinine Ratio 19.0 (10-20) Glucose 120 H (70-99(Fasting)) mg/dl Calcium 8.5 L (8.6-10.3) mg/dl Total Bilirubin 0.6 (0.2-1.0) mg/dl AST TNP 43 H ALT 50 (7-52) U/L Alkaline Phosphatase 72 (34-104) U/L Troponin I High Sens 18.1 17.5 (0-20) pg/ml Total Protein 7.2 (6.0-8.3) gm/dl Albumin 3.8 (3.4-5.0) gm/dl Globulin 3.4 (2.5-4.0) gm/dl Albumin/Globulin Ratio 1.1 (0.9-2) Lipase 38 (11-82) U/L Urine Color Yellow Urine Appearance Clear (Clear) Urine pH 5.5 (4.5-7.5) Ur Specific [place] 1.015 (1.000-1.030) Urine Protein Negative (Negative) Urine Glucose (UA) 3+ H (Negative) Urine Ketones Negative (Negative) Urine Blood Negative (Negative) Urine Nitrite Negative (Negative) Urine Bilirubin Negative (Negative) Urine Urobilinogen Negative (Negative) Ur Leukocyte Esterase Negative (Negative) Administered Medications Magnesium Sulfate/Dextrose (Magnesium Sulfate / D5w) 1 gm in 100 mls @ 50 mls/hr IV Q2H MAGDALENE Stop: 01/19/25 23:14 Last Admin: 01/19/25 17:48 Dose: 50 mls/hr Documented By: Infusion: 01/19/25 17:48 Dose: Infused Documented By: Admin: 01/19/25 15:53 Dose: 50 mls/hr Documented By: MIKE Insulin Aspart (Insulin Aspart Per Unit Charge) 0 units SC ACHS MAGDALENE Stop: 02/18/25 17:05 Last Admin: 01/19/25 17:55 Dose: Not Given Documented By: JEANNA Potassium Chloride (Potassium Chloride Crtab 20 Meq Tabcr) 40 meq PO QAM MAGDALENE Stop: 02/18/25 15:14 Last Admin: 01/19/25 15:53 Dose: 40 meq Documented By: MMF Discontinued Medications Sodium Chloride (Nss) 1,000 mls @ 999 mls/hr IV .Q1H1M ONE Stop: 01/19/25 12:56 Last Infusion: 01/19/25 14:46 Dose: Infused Documented By: Admin: 01/19/25 13:15 Dose: 999 mls/hr Documented By: RADHA Imaging Data Radiologist's Impression: Cervical Spine CT 01/19/25 11:55 CT cervical spine wo con CLINICAL HISTORY: 79 years-old Male with fall. Acute neck pain status post fall COMPARISON: Head CT of same day TECHNIQUE: Multiple axial CT images of the cervical spine were obtained without contrast. A dose lowering technique was utilized adhering to the principles of ALARA. FINDINGS: Multilevel degenerative changes include moderate to severe decubitus space narrowing within the lower cervical and upper thoracic spine. Moderate to severe multilevel facet arthrosis. Partially calcified pannus posterior to the dens. Partially imaged pacer leads. Pulmonary emphysema. Subcentimeter thyroid calcifications. The cervical soft tissues appear unremarkable. The visualized lung apices appear clear. IMPRESSION: No acute cervical spine fracture or subluxation. ACT 112: Negative or not required by law. The above report was generated using voice recognition software. It may contain grammatical, syntax or spelling errors. Electronically signed by: Andry Nguyen M.D. 01/19/2025 1:[address] 01/19/25 11:55 CT head/brain wo con CLINICAL HISTORY: 79 years-old Male with fall ams. Acute head trauma status post fall TECHNIQUE: Multiple axial CT images of the head were obtained without contrast. A dose lowering technique was utilized adhering to the principles of ALARA. CT DOSE: 1143.5 mGy.cm COMPARISON: CT cervical spine of same day, CT 08/10/2023 FINDINGS: No acute intracranial hemorrhage, midline shift, intracranial mass, hydrocephalus, territorial ischemia or abnormal extra-axial collection. Involutional changes with chronic microvascular ischemic disease. Prior bilateral lens repair. The calvarium is intact. The paranasal sinuses, mastoid air cells, and middle ear cavities are clear. IMPRESSION: No acute intracranial abnormality or calvarial fracture. ACT 112: Negative or not required by law. The above report was generated using voice recognition software. It may contain grammatical, syntax or spelling errors. Electronically signed by: Andry Nguyen M.D. 01/19/2025 12:59 PM Chest X-Ray 01/19/25 11:56 XR chest 1V portable CLINICAL HISTORY: Chest pain, nonspecific COMPARISON STUDY: 05/06/2023 FINDINGS: Stable CABG and pacemaker. Stable cardiomegaly without pulmonary vascular congestion. No effusion, consolidation, or pneumothorax. IMPRESSION: No acute findings. ACT 112: Negative or not required by law. Electronically signed by: Ari Kimbrough M.D. 01/19/2025 12:33 PM Discharge Plan Visit Data Chief Complaint: Trauma ED Provider: Christiano Gusman Discharge Problem: AMS (altered mental status), Weakness, Fall Patient Disposition: Admitted As Inpatient Discharge Instructions Interventions: ED Discharge Assessment Last Done: 01/19/25 16:35 Discharge Problem: AMS (altered mental status) Qualifiers: Altered mental status type: unspecified Qualified Code(s): R41.82 - Altered mental status, unspecified Fall Qualifiers: Encounter type: initial encounter Qualified Code(s): W19.XXXA - Unspecified fall, initial encounter
--- NOTE | 2025-01-19 12:34 | XRay Report ---
XR chest 1V portable CLINICAL HISTORY: Chest pain, nonspecific COMPARISON STUDY: 05/06/2023 FINDINGS: Stable CABG and pacemaker. Stable cardiomegaly without pulmonary vascular congestion. No ef fusion, consolidation, or pneumothorax. IMPRESSION: No acute findings. ACT 112: Negative or not required by law. Electronically signed by: Ari Kimbrough M.D. 01/19/2025 12:33 PM
[2025-01-19 13:00] LABS: Basophils # (auto) 0.03 K/uL (0.00-0.20); Basophils % (auto) 0.5 %; Eosinophils # (auto) 0.15 K/uL (0.00-0.50); Eosinophils % (auto) 2.3 %; Hemoglobin 11.7 g/dl (14.0-18.0); Immature Granulocytes # (auto) 0.02 K/uL (0.01-0.20); Immature Granulocytes % (auto) 0.3 %; Lymphocytes # (auto) 1.19 K/uL (1.20-3.40); Lymphocytes % (auto) 18.5 %; Mean Corpuscular Hemoglobin 29.1 pg (25.0-34.0); Mean Corpuscular Hgb Conc 33.4 g/dL (32.0-36.0); Mean Corpuscular Volume 87.1 fL (80.0-100.0); Mean Platelet Volume 10.1 fL (9.4-12.4); Monocytes # (auto) 0.55 K/uL (0.11-0.59); Monocytes % (auto) 8.5 %; Neutrophils % (auto) 69.9 %; Platelet Count 198 K/uL (130-400); RDW Coefficient of Variation 15.2 % (11.5-14.5); RDW Standard Deviation 48.1 fL (36.4-46.3); Red Blood Count 4.02 M/uL (4.70-6.10); White Blood Count 6.44 K/ul (4.8-10.8)
--- NOTE | 2025-01-19 13:01 | CT Scan Report ---
CT head/brain wo con CLINICAL HISTORY: 79 years-old Male with fall ams. Acute head trauma status post fall TECHNIQUE: Multiple axial CT images of the head were obtained without contrast. A dose lowering tech nique was utilized adhering to the principles of ALARA. CT DOSE: 1143.5 mGy.cm COMPARISON: CT cervical spine of same day, CT 08/10/2023 FINDINGS: No acute intracranial hemorrhage, midline shift, intracranial mass, hydrocephalus, territorial ischem ia or abnormal extra-axial collection. Involutional changes with chronic microvascular ischemic disea se. Prior bilateral lens repair. The calvarium is intact. The paranasal sinuses, mastoid air cells, and middle ear cavities are clear . IMPRESSION: No acute intracranial abnormality or calvarial fracture. ACT 112: Negative or not required by law. The above report was generated using voice recognition software. It may contain grammatical, syntax o r spelling errors. Electronically signed by: Andry Nguyen M.D. 01/19/2025 12:59 PM
--- NOTE | 2025-01-19 13:05 | CT Scan Report ---
CT cervical spine wo con CLINICAL HISTORY: 79 years-old Male with fall. Acute neck pain status post fall COMPARISON: Head CT of same day TECHNIQUE: Multiple axial CT images of the cervical spine were obtained without contrast. A dose low ering technique was utilized adhering to the principles of ALARA. FINDINGS: Multilevel degenerative changes include moderate to severe decubitus space narrowing within the lower cervical and upper thoracic spine. Moderate to severe multilevel facet arthrosis. Partiall y calcified pannus posterior to the dens. Partially imaged pacer leads. Pulmonary emphysema. Subcenti meter thyroid calcifications. The cervical soft tissues appear unremarkable. The visualized lung api jane appear clear. IMPRESSION: No acute cervical spine fracture or subluxation. ACT 112: Negative or not required by law. The above report was generated using voice recognition software. It may contain grammatical, syntax o r spelling errors. Electronically signed by: Andry Nguyen M.D. 01/19/2025 1:03 PM
[2025-01-19 13:11] LABS: Appearance Urine Clear (Clear); Bilirubin Urine Negative (Negative); Blood Urine Negative (Negative); Color Urine Yellow; Glucose Urine UA 3+ (Negative); Ketones Urine Negative (Negative); Leukocyte Esterase Urine Negative (Negative); Nitrite Urine Negative (Negative); Protein Urine Negative (Negative); Specific Gravity Urine 1.015 (1.000-1.030); Urobilinogen Urine Negative (Negative); pH Urine 5.5 (4.5-7.5)
[2025-01-19] MEDS: SODIUM CHLORIDE 0.9% 1,000 ML IV ONE (13:15)
[2025-01-19 13:41] LABS: Alanine Aminotransferase 50 U/L (7-52); Albumin Globulin Ratio 1.1 (0.9-2); Albumin Level 3.8 gm/dl (3.4-5.0); Alkaline Phosphatase 72 U/L (34-104); Anion Gap 10 (3-11); Bilirubin,Total 0.6 mg/dl (0.2-1.0); Blood Urea Nitrogen 19 mg/dl (6-23); Calcium 8.5 mg/dl (8.6-10.3); Carbon Dioxide 26 mmol/L (21-32); Chloride 104 mmol/L (98-107); Creatinine Clr Calc Pharmacy 64.2 ml/min; Globulin 3.4 gm/dl (2.5-4.0); Glucose 120 mg/dl (70-99(Fasting)); Lipase 38 U/L (11-82); Sodium 140 mmol/L (136-145); Total Protein 7.2 gm/dl (6.0-8.3); Troponin I High Sensitivity 18.1 pg/ml (0-20)
[2025-01-19 14:56] LABS: Potassium 3.3 mmol/L (3.5-5.1)
--- NOTE | 2025-01-19 15:10 | Communication Note ---
Date of Service: January 19, 2025 Past medical history of atypical atrial flutter status post DCCV status post ablation in March 2021, on Coumadin and amiodarone, HFrEF, VT/VF status post ICD, CAD status post CABG in 1997, history of LV apical thrombus on Coumadin since , sinus bradycardia, type 2 diabetes mellitus, hypertension, BPH, mood disorder, hyperlipidemia His last EP visit was in December 06, 2023; recommended to consider adding mexiletine if patient has more VT; lisinopril was discontinued. Last echo was in June 2024 which showed EF of 20%; unchanged prior to before. He had similar episode of syncope in July 2023 secondary to V. tach; was started on amiodarone during that time. EKG on admission showed AV dual paced rhythm with occasional PVCs. High sensi tive troponin on admission within normal limits.
[2025-01-19 15:39] LABS: Troponin I High Sensitivity 17.5 pg/ml (0-20)
[2025-01-19] MEDS: MAGNESIUM SULFATE / D5W 1 GM/100 ML BAG IV SCH (15:53)
[2025-01-19] MEDS: POTASSIUM CHLORIDE CRTAB 20 MEQ TABCR PO SCH (15:53)
--- NOTE | 2025-01-19 15:57 | History & Physical Report ---
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 Head CT, cervical CTno acute finding No episode of V. 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 tach, atypical atrial flutter Last episode of V. tach as per pacemaker clinic in January 05, 2025; terminated by [facility] Last EP cardiology note reviewed from December 06, 2024; recommended to consider mexiletine if patient has more VT Will consult cardiology for further recommendation Continue on amiodarone, metoprolol digoxin Replete electrolytes Mag and BMP daily Continue Coumadin; PT/INR daily Type 2 diabetes mellitus-Lantus and NovoLog ordered Hyperlipidemiacontinue Lipitor CAD status post CABG -continue Lipitor and aspirin OSAcontinue CPAP Mood disorderrcontinue sertraline DNR/DNI, okay for antiarrhythmia, shock DVT prophylaxis Coumadin Time spent evaluating patient, direct bedside care, chart review, placing orders, interpretation of diagnostic studies, discussion with consultants, patient, and family members, as well as other required patient management activities is 75 minutes Please note the above document was generated using voice recognition software. It may contain grammatical, syntax or spelling errors. Any formal questions or concerns about the content, text or information contained within the body of this dictation should be directly addressed to the provider for clarification History of Present Illness Chief Complaint: Mechanical fall Primary Care Provider: Beth Bush DO History obtained from chart review and interview with the patient Past medical history of atypical atrial flutter status post DCCV status post ablation in March 2021, on Coumadin and amiodarone, HFrEF, VT/VF status post ICD, CAD status post CABG in 1997, history of LV apical thrombus on Coumadin since , sinus bradycardia, type 2 diabetes mellitus, hypertension, BPH, mood disorder, hyperlipidemia Last admission in December 2023 when patient underwent partial amputation of second left toe for osteomyelitis Patient presented to the hospital after he had sudden onset of weakness on his bilateral lower extremity and word finding difficulty. Patient reports that he was on the couch; when trying to stand up; his bilateral lower extremity leg became weak and he also started to to experience word finding difficulties. Patient denies passing out or hitting his head. He denies chest pain, palpitation, ICD shocks, fever, chills, abdominal pain. His last EP visit was in December 06, 2024; recommended to consider adding mexiletine if patient has more VT; lisinopril was discontinued. Last echo was in June 2024 which showed EF of 20%; unchanged prior to before. He had similar episode of syncope in July 2023 secondary to V. tach; was started on amiodarone during that time. EKG on admission showed AV dual paced rhythm with occasional PVCs. High sensitive troponin on admission within normal limits. Allergies Allergy/AdvReac Type Severity Reaction Status Date / Time No Known Allergies Allergy Unknown Verified 01/12/24 13:20 Home Medications Medication Instructions Recorded Confirmed Type PreserVision AREDS-2 1 tab PO BID 08/10/23 01/19/25 History aspirin 81 mg tablet,delayed 81 mg PO QAM 08/10/23 01/19/25 History release atorvastatin 80 mg tablet 80 mg PO QAM 08/10/23 01/19/25 History digoxin 125 mcg (0.125 mg) tablet 125 mcg PO HS 08/10/23 01/19/25 History finasteride 5 mg tablet 5 mg PO HS 08/10/23 01/19/25 History furosemide 40 mg tablet 80 mg PO QAM 08/10/23 01/19/25 History insulin degludec 100 unit/mL (3 10 unit subcut QAM 08/10/23 01/19/25 History mL) subcutaneous pen (Tresiba FlexTouch U-100 insulin) metformin 1,000 mg tablet 1,000 mg PO BID 08/10/23 01/19/25 History metoprolol succinate 50 mg 25 mg PO QAM 08/10/23 01/19/25 History tablet,extended release 24 hr semaglutide 1 mg/dose (4 mg/3 mL) 1 mg subcut Q7D 08/10/23 01/19/25 History subcutaneous pen injector (Ozempic) sertraline 50 mg tablet 50 mg PO HS 08/10/23 01/19/25 History warfarin 10 mg tablet 5 mg PO UD 08/10/23 01/19/25 History amiodarone 200 mg tablet 200 mg PO BID #60 tabs 08/12/23 01/19/25 Rx dapagliflozin propanediol 10 mg 10 mg PO QAM 01/11/24 01/19/25 History tablet (Farxiga) Past Med/Surg History Problem List (Updated 01/19/25 @ 15:51 by Ga Allison MD) Stroke-like episode Osteomyelitis Traumatic open wound of left lower leg with delayed healing (Acute) Diabetic ulcer of toe of left foot (Acute) Biventricular ICD (implantable cardioverter-defibrillator) in place Syncope (Acute) Ventricular tachycardia (Acute) Syncope and collapse Syncope Cellulitis of leg, left PAD (peripheral artery disease) (Acute) Diabetic ulcer of left heel (Acute) Diabetic ulcer of left great toe (Acute) Diabetic ulcer of right great toe (Acute) Osteomyelitis (Acute) Diabetic foot ulcer Diabetic ulcer of toe associated with diabetes mellitus due to underlying condition, limited to breakdown of skin Encounter for pre-operative examination Umbilical hernia (Chronic) ICD (implantable cardioverter-defibrillator) in place Biventricular ICD upgrade 08/2020 Medtronic- h/o ICD discharge 10/2020 x 2 per 01/2021 ICD check Sleep apnea cpap BPH (benign prostatic hyperplasia) Hypertension Chronic systolic CHF (congestive heart failure) Severe LV dysfunction Paroxysmal atrial flutter Ischemic cardiomyopathy EF= 13% on 10/2020 stress test Diabetes mellitus, type 2 Medical History History of cardioversion 2020, [facility] Hx of angiography 12/2023, [facility] Paroxysmal atrial flutter LBBB (left bundle branch block) Follows with dr. bush, [facility] Apical mural thrombus History of- on chronic Coumadin Ischemic cardiomyopathy EF= 13% on 10/2020 stress test BPH (benign prostatic hyperplasia) Diabetes mellitus, type 2 Depression Anxiety Chronic systolic CHF (congestive heart failure) Severe LV dysfunction CAD (coronary artery disease) S/p 3 vessel bypass 1997 On anticoagulant therapy warfarin daily Myocardial Infarction x3--last 1997--follows with Dr. Bang Bush Hypertension Hyperlipidemia ICD (implantable cardioverter-defibrillator) in place Biventricular ICD upgrade 08/2020 Medtronic- h/o ICD discharge 10/2020 x 2 per 01/2021 ICD check Sleep apnea cpap Surgical History History of amputation of great toe bilateral History of surgery left leg vein removed for bypass History of carpal tunnel surgery of right wrist History of colonoscopy History of appendectomy History of tonsillectomy and adenoidectomy History of bilateral cataract extraction History of cardiac cath x1--1997 @ [facility] [place]--no stents, had CABG History of implantable cardioverter-defibrillator (ICD) placement inserted 01/2007, replaced 02/2016, upgraded to BiV ICD on 09/19/20--Medtronic S/P triple vessel bypass @ [facility] [place] 1997 Family History Other No family history of adverse response to anesthesia Social History Smoking Status: Former smoker Tobacco Type: Cigarettes Second Hand Exposure: Yes ( smokes); Do You Dip or Chew Tobacco: Yes (1 can/4-5 days; advised); Hx Alcohol Use: Yes Alcohol type: beer, wine and hard liquor Alcohol Intake Frequency: Monthly or Less Hx Substance Use: No Preferred Language: Persian Communication Ability: Effective Visual Impairment: Limited Hearing Ability: Hard of Hearing [employer] Car [employer] Required: No Beliefs That Will Affect Care: Cultural marital status: Current Living Situation: Spouse Feels Safe at Home: Yes Diet: regular Assistive Devices: Cane and Walker Review of Systems Review of Systems: All systems reviewed & are unremarkable except as noted in Subjective Physical Exam Physical Exam: Constitutional: Alert oriented x 3; not in any distress. Respiratory: Bilateral vesicular breath sound Cardiovascular: Regular, no murmur. Chest: normal inspection of chest Abdomen: normal bowel sounds, soft, nontender, no hepatosplenomegaly Musculoskeletal: Bilateral pitting edema Neurologic: PERRL, EOMI, accommodation nl, no face palsy, no dysarthria CN's II- XI intact bilaterally and moves all extremities Results & Data Results & Data Vital Signs (Past 12 Hours) Vital Signs Temp Pulse Pulse Resp BP BP Pulse Ox 01/19/25 15:30 73 23 129/79 99 01/19/25 15:00 74 26 H 119/71 95 01/19/25 14:00 78 18 105/58 L 98 01/19/25 13:14 75 18 124/69 98 01/19/25 13:00 70 24 107/91 100 01/19/25 12:14 79 16 121/67 97 01/19/25 12:11 86 01/19/25 11:56 37.0 C 74 19 117/74 99 01/19/25 11:56 99 01/19/25 11:14 99 01/19/25 11:14 37.0 C 74 19 117/74 99 01/19/25 11:14 01/19/25 11:14 37.0 C 74 19 117/74 99 01/19/25 11:14 37.0 C 74 19 99 01/19/25 11:14 37.0 C 74 19 117/77 99 O2 Del Method O2 Flow Rate 01/19/25 15:30 Room Air 01/19/25 15:00 Room Air 01/19/25 14:00 Room Air 01/19/25 13:14 Room Air 01/19/25 13:00 Room Air 01/19/25 12:14 Room Air 01/19/25 12:11 01/19/25 11:56 Room Air 01/19/25 11:56 Room Air 01/19/25 11:14 Room Air 01/19/25 11:14 Room Air 01/19/25 11:14 Room Air 01/19/25 11:14 Room Air 01/19/25 11:14 Room Air 01/19/25 11:14 Room Air 0
[2025-01-19 16:55] LABS: Prothrombin Time 20.8 Seconds (9.0-12.0)
--- OUTSIDE RECORDS SUMMARY | 2025-01-19 16:56 | External Medical Summary | Summary of Care ---
Author Name Unknown Organization [facility] [address] [facility] [address] Phone [phone] Care Team Providers Care Fish And Wildlife Warden Name Role Phone Beth Mcginnis Primary Care Provider [phone] Reason for Visit * Reason Onset Date Comments Test Results 12/07/2024 Encounter Details Date Type Department Care Team (Late st Contact Info) Description 12/07/2024 Telephone Cardiology, [place] [address] [place] [address] Loraine Lopez CRNP [address] [place] [address] Test Results Allergies No known active allergiesdocumented as of this encounter (statuses as of 12/07/2024) Medications OMEGA-3 FATTY ACIDS 1000 MG OR CAPSIndications: CVD (arteriosclerotic cardiovascular disease) 2-3 per day 0 09/29/20 03 Active ASPIRIN 81 MG PO CHEWIndications:Is chemic cardiomyopathy,DM type 2, goal A1c below 7 take one tablet daily 100 Tab 3 06/03/20 11 Active LANCETS MISCIndications:DM type 2, goal A1c below 7 test blood sugars 3-4 times daily 2 Box 3 09/16/20 13 Active Multiple Vitamins-Minerals (PRESERVISION AREDS 2) Capsule Take 1 Capsule by mouth in the morning and 1 Capsule before bedtime. 06/20/20 20 Active CPAP every night at bedtime. Active FreeStyle Judith 2 Sensor Use as directed . Change every 14 days 6 Each 3 03/03/20 22 Active traMADol HCl 50 MG Oral Tablet (Ultram)Indication s:Left leg cellulitis TAKE 1 TABLET BY MOUTH EVERY 8 HOURS NEEDED FOR SEVERE PAIN 30 Tablet 03/06/20 23 Active Ozempic (1 MG/DOSE) 4 MG/3ML Subcutaneous Solution Pen-injector (Semaglutide (1 MG/DOSE)) Through PAP 02/21/20 23 Active Tresiba FlexTouch 100 UNIT/ML Subcutaneous Solution Pen-injector (Insulin Degludec) Inject 8 Units under the skin in the morning. Obtaining from PAP. Active Farxiga 10 MG Oral Tablet (Dapagliflozin Propanediol) Take 1 Tablet by mouth in the morning. Obtaining from PAP until 11/22/2024. Active NovoLOG FlexPen 100 UNIT/ML Subcutaneous Solution Pen-injector (insulin aspart) 7 Units in the morning and 7 Units at noon and 7 Units in the evening. Take with meals. Obtaining from [employer] PAP. Active Metoprolol Succinate ER 25 MG Oral Tablet Extended Release 24 Hour (toPROL XL)Indications:Isc hemic cardiomyopathy Take 1 Tablet by mouth in the morning. 90 Tablet 5 11/12/20 23 Active Nitroglycerin 0.4 MG Sublingual Tablet Sublingual (Nitrostat)Indicat ions:ASCVD (arteriosclerotic cardiovascular disease) Place 1 Tablet under the tongue every 5 minutes as needed for Pain, Chest. Max dose 3 tablets in 15 minutes 25 Tablet 5 03/29/20 24 Active metFORMIN HCl 1000 MG Oral Tablet (Glucophage) TAKE 1 TABLET TWICE DAILY 180 Tablet 1 05/03/20 24 Active Finasteride 5 MG Oral Tablet (Proscar)Indicatio ns:Nodular prostate with urinary obstruction TAKE 1 TABLET EVERY DAY 90 Tablet 1 05/10/20 24 Active Warfarin Sodium 10 MG Oral Tablet (Coumadin)Indicati ons:senior care current use of anticoagulant therapy,Sustained VT (ventricular tachycardia) (HCC) TAKE 1/2 TO 1 TABLET DAILY INSTRUCTED BY THE COUMADIN CLINIC 90 Tablet 3 05/24/20 24 Active Amiodarone HCl 200 MG Oral Tablet (Cordarone)Indicat ions:Ventricular tachycardia (HCC) TAKE 1 TABLET IN THE MORNING AND TAKE 1 TABLET BEFORE BEDTIME 180 Tablet 3 07/07/20 24 Active Digoxin 125 MCG Oral Tablet (Lanoxin)Gordotio ns:Ischemic cardiomyopathy,Hea rt failure, systolic, due to CAD (HCC) Take 1 Tablet by mouth once a day on Thursday, Thursday, and Thursday only. 40 Tablet 3 07/22/20 24 Active Sertraline HCl 25 MG Oral Tablet (Zoloft)Indication s:Mild depression Take 1 Tablet by mouth in the morning. Take with 50mg.. 90 Tablet 2 09/15/20 24 Active Sertraline HCl 50 MG Oral Tablet (Zoloft)Indication s:Depression,Anger TAKE 1 TABLET EVERY DAY 90 Tablet 3 09/21/20 24 Active Furosemide 40 MG Oral Tablet (Lasix)Indications :Heart failure, systolic, due to CAD (HCC),Chronic heart failure with reduced ejection fraction and diastolic dysfunction (HCC) TAKE 1 TABLET TWICE DAILY 180 Tablet 1 09/21/20 24 Active Atorvastatin Calcium 80 MG Oral Tablet (Lipitor)Gordotio ns:Elevated LFTs,Dyslipidemia, goal LDL below 70 Take 0.5 Tablets by mouth in the morning. 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 Encounter for implantable de fibrillator 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 or check 02/15/2007 senior care current use of anticoagulant therapy 0 08/12/2005 Ischemic cardiomyopathy documented as of this encounter (statuses as of 12/07/2024) Resolved Problems Problem Noted Date Diagnosed Date Resolved Date Osteomyelitis of foot 02/23/20232022 Diabetic ulcer of toe associ ated with type 2 diabetes mellitus 02/23/2023 09/26/2024 Moderate recurrent major depression 12/01/2019 02/23/2023 Ischemic cardiomyopathy 12/01/2019 04/0 01/2023 Controlled type 2 diabetes m ellitus with insulin therapy 02/21/2019 12/01/2019 Sustained VT (ventricular tachycardia) 02/21/2019 12/01/2019 Type 2 diabetes mellitus wit h diabetic nephropathy 02/16/2019 02/23/2023 Type 2 diabetes mellitus wit h foot ulcer, with long-term current use of insulin 02/11/2018 Diabetic retinopathy 01/07/2017 024 Overview (08/25/2018): ICD-10 update of inactive term Nonproliferative diabetic re tinopathy of left eye, with macular edema, with mild nonproliferative retinopathy 10/15/2016 02/11/2018 Nonexudative macular degeneration 10/15/2016 02/16/2019 Sebaceous cyst 11/23/2014 09/24/2017 Former smoker 03/05/2014 09/24/2017 Sustained VT (ventricular tachycardia) 02/02/2013 02/11/2018 Snoring 01/03/2013 09/24/2017 Hyperpotassemia 08/14/2010 09/24/2017 Type 2 diabetes mellitus wit h hemoglobin A1c goal of less than 7.0% 09/20/2009 12/30/2013 Overview (03/18/2016): Per Diabetes Taxonomy. ICD-10 update of inactive term ADVANCE DIRECTIVE INFORMATION 07/22/2005 09/26/2024 Overview (07/22/2005): no advance directive- has info DERMATITIS DUE TO PLANT 10/03/200212/2016 Anticoagulation management encounter 05/20/2002 09/24/2017 SUPERFICIAL INJ CORNEA 11/03/200009/24 RECURR DEPR PSYCHOS-MOD 07/24/200001/22 ASCVD 02/23/2023 Type 2 diabetes mellitus wit h hemoglobin A1c goal of less than 7.0% 09/20/2009 Overview (03/18/2016): Per Diabetes Taxonomy. ICD-10 update of inactive term HYPERLIPIDEMIA NEC-NOS 11/08 Overview (11/08/2009): Per Lipid Taxonomy. CHF NYHA class II 09/27/2013 documented as of this encounter (statuses as of 12/07/2024) Immunizations Name Administration Dates Next Due COVID-19 mRNA, LNP-s, No Pre serve, 2-Dose Series ([employer]) 11/19/2021,03/02/2021,02/08/2021 Pneumococcal Conjugate Vacc, 13 Valent (Prevnar) 03/12/2016 Pneumococcal Polysaccharide PPV23 (Pneumovax) 11/19/2018,01/29/2007 Season Influenza, Quad, PF, Adjuvanted, 65+ Yrs, IM (FLUAD) 09/26/2020 Seasonal Influenza Vac., MDV , IM, 0.5 mL (Fluzone) 08/13/2015,09/25/2014,08/15/2013,07/25,08/20/2011,08/28/2010,08/06/20 09 09/25/2015 Seasonal Influenza, High Dos e, Trivalent, PF, IM (Fluzone HD) 09/02/2024 Seasonal Influenza, PF, 6 M & above, IM , (FluLaval or Fluzone) 08/31/2019,08/19/2018,09/24/2017 08/31/2020 Seasonal Influenza, Quadriva lent Hd (Fluzone Hd) 08/28/2023,08/08/2022,08/22/2021 Seasonal Influenza, Quadriva lent, No Preserve, IM 09/11/2016 TDAP (age 10 and older)(Boostrix) 02/11/2018 TDAP, Age 7 and older, IM (Adacel) 03/27/2006 documented as of this encounter Social [...] Date Recorded PHQ Adult Total Score 0 03/30/2024 Hunger Vital Sign Answer Date Recorded Within the past 12 months, y ou worried that your food would run out before you got the money to buy more. Never true 03/30/20 24 Within the past 12 months, t he food you bought just didn't last and you didn't have money to get more. Never true 03/30/2024 Childcare Answer Date Recorded Do you feel overwhelmed with taking care of a child, family member or friend? No 03/30/2024 Does your family need help f inding childcare? (Household - for ages 0-17 years) Not on file 03/30/2024 Clothing Answer Date Recorded Have you been unable to get clothing when it was really needed? No 03/30/2024 Is your family able to get c lothes or diapers when needed? (Household - for ages 0-17 years) Not on file 03/30/2024 Personal Safety Answer Date Recorded Do you feel unsafe or have concerns for your saf ety? No 03/30/2024 Do you have concerns for you r family's safety? (Household - for ages 0-17 years) Not on file 03/30/2024 Utilities Answer Date Recorded Do you have trouble paying y our heating, water, or electric bill? No 03/30/2024 Is your family able to pay t he heat, water, or electric bill? (Household - for ages 0-17 years) Not on file 03/30/2024 Does your family have access to good internet? (Household - for ages 0-17 years) Not on file 03/30/2024 Employment Status Answer Date Recorded Are you unemployed or without regular income? No 03/30/2024 Does the household have a re gular source of income? (Household - for ages 0-17 years) Not on file 03/30/2024 Social Connections Answer Date Recorded How often do you feel lonely or isolated from th ose around you? Never 03/30/2024 Financial Resource Strain Answer Date R ecorded Do you have any trouble payi ng for your medications, or do you think you might in the future? No 03/30/2024 Does your family have troubl e paying for medicine? (Household - for ages 0-17 years) Not on file 03/30/2024 Transportation Needs Answer Date Record ed READ ONLY Do you have troubl e getting a ride to medical visits or work? Never True 03/30/2024 Does your family have a hard time getting a ride to doctors visits? (Household - for ages 0-17 years) Not on file 03/30/2024 Has lack of transportation k ept you from medical appointments, meetings, work, or from getting things needed for daily living? Check all that apply. (Adult - for ages 18 years and over) Not on file 03/30/2024 Do you (or your family) have trouble finding or paying for a ride (transportation)? (Household - for ages 0-17 years) Not on file 03/30/2024 Housing Stability Answer Date Recorded Do you currently live in a s helter or have no steady place to sleep at night? No 03/30/2024 READ ONLY Do you think you a re at risk of becoming homeless? No 03/30/2024 Does your family worry about paying for your home or becoming homeless? (Household - for ages 0-17 years) Not on file 0 03/30/2024 Are you homeless or worried that you might be in the future? (Adult - for ages 18 years and over) Not on file Are you (or your family) willis eless or worried that you might be in the future? (Household - for ages 0-17 years) Not on file Food Insecurity Answer Date Recorded Do you need food for this week? No 03/30/2024 Are you able to get enough f ood for your family? (Household - for ages 0-17 years) Not on file 03/30/2024 Does your family need food t his week? (Household - for ages 0-17 years) Not on file 03/30/2024 Do you always have enough fo od for your family? 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 * Telephone Encounter - Tori Rey LPN - 12/07/2024 12:29 PM EST ----- Message from Loraine Lopez sent at 12/07/2024 12:16 PM EST ----- Reviewed recent bloodwork. LDL and Cholesterol well controlled. Digoxin level within normal limits. No changes necessary at this time. documented in this encounter Plan of Treatment Upcoming Encounters Date Type Department Care Team (Late st Contact Info) Description 01/26/2025 11:20 AM EST Anticoagulation Pharmacy, Rhonda [address] [phone] [facility] [address] [facility] [place] [address] 01/26/2025 11:30 AM EST Office Visit Family Practice, [facility]onda [address] [phone] Beth Mcginnis, DO [address] [place] [address] 02/28/2025 10:30 AM EDT Anticoagulation Pharmacy, [address] [phone] [facility] [address] [facility] [place] [address] 02/28/2025 10:40 AM EDT Office Visit Pharmacy, [facility] [phone] [facility] [address] [facility] [address] 03/31/2025 11:50 AM EDT Office Visit Family Practice, [address] [phone] Beth Mcginnis, DO [address] [place] [address] 05/24/2025 10:00 AM EDT Office Visit Cardiology, [facility] [address] [place] [address] Lea Steele CRNP [address] [place] [address] 11/06/2025 10:30 AM EST Office Visit Cardiology, [facility] [address] [place] [address] Bang Mcginnis, DO [address] [facility] [place] [address] Health Maintenance Due Date Last Done Comments DXA Scan 1945 Adult Wellness Visit 01/01/2019 01/01/2018 Diabetic Eye Exam 06/10/2024 06/10/2023, , 06/09/2023, Additional history exists COVID-19 Vaccine ( season) 2024 11/19/2021, 03/02/2021, 02/08/2021 HbA1c 02/06/2025 08/09/2024, 041 , 11/12/2023, Additional history exists Depression Monitoring 03/30/2025 03/30/2024 GFR 09/02/2025 09/02/2024, 1 , 11/12/2023, Additional history exists Albumin/Creatinine Ratio 12/06/2025 025, 08/28/2023, 03/14/2022, Additional history exists B-12 12/06/2025 12/06/2024, 100 04/2023, 03/14/2022, Additional history exists DIG LEVEL FOR MEDICATION MONITORING YEARLY 12/06/2025 12/06/2024, 04/27/2023, 07/03/2021 DTap/Tdap Vaccines (3 - Td or Tdap) 02/12/2028 02/11/2018, 03/27/2006, 11/23/1995 Pneumococcal Vaccine: 50+ Years Completed 11/19/2018, 03/12/2016, 01/29/2007 Diabetic Foot Exam Discontinued 04/15/2023, 0 07/03/2021, 07/24/2020, Additional history exists Influenza Vaccine (FLU shot) Completed 09/02/2024, 08/28/2023, 08/08/2022, Additional history exists HPV (Gardasil) Vaccine Aged Out No lo nger eligible based on patient's age to complete this topic Hepatitis B Vaccine Aged Out No longe r eligible based on patient's age to complete this topic MENINGOCOCCAL (MENACTRA/MENVEO) Aged Out No longer eligible based on patient's age to complete this topic Zoster Vaccines Discontinued documented as of this encounter Medical Devices Not on filedocumented as of this encounter Advance Directives * Full Code (Latest Code Status on File) Date Activated Date Inactivated Comments 03/25/2021 2:23 PM 03/25/2021 8:49 PM This order ref lects the patients wishes and were consensually agreed upon. Question Answer Comments Discussion of Advance Directives occurred with: Not Discussed Does the patient have a Living Will? No Does the patient have Health Care Power of Attor ale? No Care Teams Fish And Wildlife Warden Relationship Specialty Start Date End Date Beth Mcginnis DO PCP - General 08/28/10 documented as of this encounter
--- OUTSIDE RECORDS SUMMARY | 2025-01-19 16:56 | External Medical Summary | Summary of Care ---
Author Name Unknown Organization [facility] Address [address] [facility] [address] Phone [phone] Care Team Providers Care Jacker Feeder Name Role Phone Alejandro Mcginnis DO Primary Care Provider Reason for Visit * Reason Onset Date Comments Medication Refill 12/10/2024 Encounter Details Date Type Department Care Team (Late st Contact Info) Description 12/10/2024 [facility] [address] [facility] [phone] Alejandro Mc[facility]innis [facility] [address] [facility] [phone] Allergies No known active allergiesdocumented as of this encounter (statuses as of 12/11/2024) Medications OMEGA-3 FATTY ACIDS 1000 MG OR [...] the evening. Take with meals. Obtaining from [employer] PAP. 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 terminal agent current use of anticoagulant therapy,Sustained VT (ventricular tachycardia) (HCC) TAKE 1/2 TO 1 TABLET DAILY INSTRUCTED BY THE COUMADIN CLINIC 90 Tablet 3 05/24/20 24 Active Amiodarone HCl 200 MG Oral Tablet (Cordarone)Indicat ions:Ventricular tachycardia (HCC) TAKE 1 TABLET IN THE MORNING AND TAKE 1 TABLET BEFORE BEDTIME 180 Tablet 3 07/07/20 24 Active Digoxin 125 MCG Oral Tablet (Lanoxin)Indicatio ns:Ischemic cardiomyopathy,Hea rt failure, systolic, due to [...] Active Atorvastatin Calcium 80 MG Oral Tablet (Lipitor)Indicatio ns:Elevated LFTs,Dyslipidemia, goal LDL below 70 Take 0.5 Tablets by mouth in the morning. 10/17/20 24 Active Lisinopril 2.5 MG Oral Tablet (Prinivil)Indicati ons:Ischemic cardiomyopathy TAKE 1 TABLET EVERY DAY 90 Tablet 3 10/27/20 24 Active metFORMIN HCl 1000 MG Oral Tablet (Glucophage) Take 1 Tablet by mouth in the morning and 1 Tablet before bedtime. 180 Tablet 1 12/11/19 25 Active metFORMIN HCl 1000 MG Oral Tablet (Glucophage) TAKE 1 TABLET TWICE DAILY 180 Tablet 1 05/03/20 24 025 Discontin ued(Refil l) documented as of this encounter (statuses as of 12/11/2024) Active Problems Problem Noted Date Diagnosed Date [...] implantable de fibrillator 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 or check 02/15/2007 retirement current use of anticoagulant therapy 0 08/12/2005 Ischemic cardiomyopathy documented as of this encounter (statuses as of 12/11/2024) Resolved Problems Problem Noted Date Diagnosed Date [...] as of this encounter (statuses as of 12/11/2024) Immunizations Name Administration Dates Next Due COVID-19 mRNA, LNP-s, No Pre serve, 2-Dose Series ([employer]) 11/19/2021,03/02/2021,02/08/2021 Pneumococcal Conjugate Vacc, 13 Valent (Prevnar) [...] encounter Miscellaneous Notes * Telephone Encounter - Aftab Carrizales RPh - 12/11/2024 4:41 PM ESTSigned Prescriptions: Disp Refills metFORMIN HCl 1000 MG Oral Tablet (Glucoph*180 Ta*1 Sig: Take 1 Tablet by mouth in the morning and 1 Tablet before bedtime.Authorizing Provider: ALEJANDRO MCGINNIS User: AFTAB CARRIZALES documented in this encounter Plan of Treatment Upcoming Encounters Date Type Department Care Team (Late st Contact Info) Description 01/26/2025 11:20 AM EST Anticoagulation Pharmacy, [address] [phone] Rh[facility] [address] [place] [address] 01/26/2025 11:30 AM EST Office Visit Family [facility], [place], [place] [phone] Alejandro Mcginnis DO [address] [place] [address] 02/28/2025 10:30 AM EDT Anticoagulation Pharmacy, [place] [phone] [facility] [address] [facility] [place] [address] 02/28/2025 10:40 AM EDT Office Visit Pharmacy, [place] [phone] [facility] [address] [facility] [address] 03/31/2025 11:50 AM EDT Office Visit Family Practice, [place], [place] [phone] Alejandro Mcginnis, DO [address] [place] [address] 05/24/2025 10:00 AM EDT Office Visit Cardiology, [facility] [address] [facility] [place] [address] Lea Steele CRNP [address] [place] [address] [place] [address] 11/06/2025 10:30 AM EST Office Visit Cardiology, [facility] [address] [place] [address] Bang Mcginnis [address] [place] [address] Health Maintenance Due Date Last Done Comments DXA Scan 1945 Adult Wellness Visit 01/01/2019 01/01/2018 Diabetic Eye Exam 06/10/2024 06/10/2023, , 06/09/2023, Additional history exists COVID-19 Vaccine ( season) 2024 11/19/2021, 03/02/2021, 02/08/2021 HbA1c 02/06/2025 08/09/2024, 02/21, 11/12/2023, Additional history exists Depression Monitoring 03/30/2025 03/30/2024 GFR 09/02/2025 09/02/2024, 02/21, 11/12/2023, Additional history exists Albumin/Creatinine Ratio 12/06/2025 025, 08/28/2023, 03/14/2022, Additional history exists B-12 12/06/2025 12/06/2024, 1004/2023, 03/14/2022, Additional history exists DIG LEVEL FOR [...] Power of Attor ale? No Care Teams Jacker Feeder Relationship Specialty Start Date End Date Alejandro Mcginnis DO PCP - General 08/28/10 documented as of this encounter
--- OUTSIDE RECORDS SUMMARY | 2025-01-19 16:56 | External Medical Summary | Summary of Care ---
Author Name Unknown Organization [facility] Address [address] [place] [address] Phone [phone] Care Team Providers Care Medical Officer Name Role Phone Beth Mcginnis DO Primary Care Provider [phone] Reason for Visit * Reason Comments Consultation * Evaluate & Treat - Unlimited Visits (Within 10 days (routine)) - Authorized Specialty Diagnoses / Procedures Referred By Contact Referred To Contact Cardiac Electrophysiology / Cardiology Diagnoses VT (ventricular tachycardia) (HCC) Atypical atrial flutter (HCC) Encounter for implantable defibrillator 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 or check Beth Mcginnis DO Phone: tel:[phone] fax:[phone] Iliana Cortez DO Phone: tel:[phone] fax:[phone] Referral ID Status Reason Start Date Expiration Date Visits Requested Visits Authorized [id number] Authorized Specialty Services Required 09/26/[phone] Encounter Details Date Type Department Care Team (Late st Contact Info) Description 12/06/2024 12:15 PM EST Office Visit Cardiology, [facility] [address] [facility] [place] [address] Iliana Cortez DO [address] [facility] [place] [address] Sustained VT (ventricular tachycardia) (HCC)*; Atypical atrial flutter (HCC); Bradycardia, sinus; Chronic heart failure with reduced ejection fraction and diastolic dysfunction (HCC); Ischemic cardiomyopathy; Orthostatic hypotension; VT (ventricular tachycardia) ([facility]) [I47.20]; Encounter for implantable defibrillator 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 or check [Z45.02] Allergies No known active allergiesdocumented as of this encounter (statuses as of 12/27/2024) Medications OMEGA-3 FATTY ACIDS 1000 MG OR [...] the evening. Take with meals. Obtaining from [employer] PAP. 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 Do all this for 10 days. Until gone.. 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 0 08/12/2005 Ischemic cardiomyopathy documented as of this encounter (statuses as of 12/27/2024) Resolved Problems Problem Noted Date Diagnosed Date Resolved Date Osteomyelitis of foot 02/23/20232022 Diabetic ulcer of toe associ ated with type 2 diabetes mellitus 02/23/2023 09/26/2024 Moderate recurrent major depression 12/01/2019 02/23/2023 Ischemic cardiomyopathy 12/01/2019 040 01/2023 Controlled type 2 diabetes m amauri with insulin therapy 02/21/2019 12/01/2019 Sustained VT [...] as of this encounter (statuses as of 12/27/2024) Immunizations Name Administration Dates Next Due COVID-19 mRNA, LNP-s, No Pre serve, 2-Dose Series ([employer]) 11/19/2021,03/02/2021,02/08/2021 Pneumococcal Conjugate Vacc, 13 Valent (Prevnar) [...] No 03/30/2024 Does the household have a [facility] source of income? (Household - for ages [...] fi le documented as of this encounter Last Filed Vital Signs Vital Sign Reading Time Taken Comments Blood Pressure 100/52 12/06/2024 12:50 PM EST Pulse 80 12/06/2024 12:50 PM EST Temperature - - Respiratory Rate 16 12/06/2024 12:50 PM EST Oxygen Saturation - - Inhaled Oxygen Concentration - - Weight 84.8 kg (187 lb) 12/06/2024 12:50 PM EST Height 175.3 cm (5' 9") 12/06/2024 12:50 PM EST Body Mass Index 27.62 12/06/2024 12:50 PM EST documented in this encounter Patient Instructions * Patient Instructions* Iliana Cortez DO - 12/06/2024 1:44 PM EST Stop lisinopril 2.5mg daily and see if the lightheadedness and dizziness with change in positions as well as the low BP improves; if it does great; if not let me know as we can start another medication called midodrine to possibly help with the lower BP documented in this encounter Progress Notes * Maria De Jesus Rosales RPh - 12/06/2024 1:52 PM EST Discussed case with Dr Cortez. Due to hypotension, GDMT optimization limited. MTM will cancel todays appt. Pt can be re-referred in future if needed. Maria De Jesus Glez D Clinical MTDM Pharmacist Cardiology 12/06/2024,1:52 PM * Iliana Cortez DO - 12/06/2024 1:20 PM EST Dmitriy Lynch is a 79 year old male. Chief Complaint Patient presents with Consultation Pt referred to EP due to VT on device check Referring Provider: Dr. Mcginnis Cardiac Problems: Atrial flutter (atypical) s/p DCCV but did not hold; on coumadin and amiodarone [id number] 5 (age, CHF, CAD, DM, HTN); s/p AVN ablation 03/25/2021 ICM s/p ICD 01/2007 gent change 02/27/2016 ([place] ICD lead) s/p upgrade to BiV ICD 09/19/2020 LBBB Chronic heart failure with reduced EF and diastolic dysfunction, NYHA Class II Sinus bradycardia DM VT/VF s/p ICD shock in 01/2013; most recently 10/2024 one responded to ATP other did not and resolved on its own CAD s/p CABGx3 in 1997 History of LV apical thrombus has been on coumadin since HTN HLD HPI: Pt has not complaints His usual fatigue and SOB PMH: Patient Active Problem List Diagnosis 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 Ischemic cardiomyopathy Encounter for implantable defibrillator 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 or check DYSLIPIDEMIA, GOAL LDL BELOW 70 Heart failure, systolic, due to CAD ([facility]) Type 2 diabetes mellitus with hemoglobin A1c goal of less than 8.0% ([facility]) 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 (HCC) Low back pain with right-sided sciatica Type 2 diabetes mellitus with diabetic nephropathy, with long-term current use of insulin ([facility]) HTN, goal below 130/80 ASCVD (arteriosclerotic cardiovascular disease) Bradycardia, sinus LBBB (left bundle branch block) Chronic heart failure with reduced ejection fraction and diastolic dysfunction (HCC) Atypical atrial flutter (HCC) S/P atrioventricular emely ablation Current Outpatient Medications Medication Sig Dispense Refill OMEGA-3 FATTY ACIDS 1000 MG OR CAPS 2-3 per day 0 ASPIRIN 81 MG PO CHEW take one tablet daily 100 Tab 3 Multiple Vitamins-Minerals (PRESERVISION AREDS 2) Capsule Take 1 Capsule by mouth in the morning and 1 Capsule before bedtime. traMADol HCl 50 MG Oral Tablet (Ultram) TAKE 1 TABLET BY MOUTH EVERY 8 HOURS NEEDED FOR SEVERE PAIN 30 Tablet 0 Ozempic (1 MG/DOSE) 4 MG/3ML Subcutaneous Solution Pen-injector (Semaglutide (1 MG/DOSE)) Through PAP Tresiba FlexTouch 100 UNIT/ML Subcutaneous Solution Pen-injector (Insulin Degludec) Inject 8 Units under the skin in the morning. Obtaining from PAP. Farxiga 10 MG Oral Tablet (Dapagliflozin Propanediol) Take 1 Tablet by mouth in the morning. Obtaining from PAP until 11/22/2024. NovoLOG FlexPen 100 UNIT/ML Subcutaneous Solution Pen-injector (insulin aspart) 7 Units in the morning and 7 Units at noon and 7 Units in the evening. Take with meals. Obtaining from [employer] PAP. Metoprolol Succinate ER 25 MG Oral Tablet Extended Release 24 Hour (toPROL XL) Take 1 Tablet by mouth in the morning. 90 Tablet 5 Nitroglycerin 0.4 MG Sublingual Tablet Sublingual (Nitrostat) Place 1 Tablet under the tongue every5 minutes as needed for Pain, Chest. Max dose 3 tablets in 15 minutes 25 Tablet 5 metFORMIN HCl 1000 MG Oral Tablet (Glucophage) TAKE 1 TABLET TWICE DAILY 180 Tablet 1 Finasteride 5 MG Oral Tablet (Proscar) TAKE 1 TABLET EVERY DAY 90 Tablet 1 Warfarin Sodium 10 MG Oral Tablet (Coumadin) TAKE 1/2 TO 1 TABLET DAILY INSTRUCTED BY THE COUMADIN CLINIC 90 Tablet 3 Amiodarone HCl 200 MG Oral Tablet (Cordarone) TAKE 1 TABLET IN THE MORNING AND TAKE 1 TABLET BEFOREBEDTIME 180 Tablet 3 Digoxin 125 MCG Oral Tablet (Lanoxin) Take 1 Tablet by mouth once a day on Thursday, Thursday, and Thursday only. 40 Tablet 3 Sertraline HCl 25 MG Oral Tablet (Zoloft) Take 1 Tablet by mouth in the morning. Take with 50mg.. 90 Tablet 2 Sertraline HCl 50 MG Oral Tablet (Zoloft) TAKE 1 TABLET EVERY DAY 90 Tablet 3 Furosemide 40 MG Oral Tablet (Lasix) TAKE 1 TABLET TWICE DAILY 180 Tablet 1 Atorvastatin Calcium 80 MG Oral Tablet (Lipitor) Take 0.5 Tablets by mouth in the morning. Lisinopril 2.5 MG Oral Tablet (Prinivil) TAKE 1 TABLET EVERY DAY 90 Tablet 3 LANCETS MIS test blood sugars 3-4 times daily 2 Box 3 CPAP every night at bedtime. FreeStyle Judith 2 Sensor Use as directed . Change every 14 days 6 Each 3 No current facility-administered medications for this visit. Past Medical History: Diagnosis Date ASCVD (arteriosclerotic cardiovascular disease) 05/23/1998 s/p UT, EF 20-25% CHF NYHA class II (HCC) Depressive disorder, not elsewhere classified DM type 2, goal A1C below 8.0 12/30/2013 Dyslipidemia, goal to be determined Ischemic cardiomyopathy Medtronic ICD 3 Sleep apnea, obstructive Past Surgical History: Procedure Laterality Date CABG, ARTERIAL, THREE 05/1998 CARPAL TUNNEL SURGERY 07/2010 Right (Dr Dubon) COLONOSCOPY 2010 nml ELECTROPHYS MAP, 3D, ADD-ON Bilateral 03/25/2021 CATHETER 3-D MAPPING performed by Iliana Cortez DO at OR [facility] ELECTROPHYSIOLOGY EVAL & ABLATE SVT Right 03/25/2021 ELECTROPHYSIOLOGY EVAL & ABLATE SVT performed by Iliana Cortez DO at OR [facility] INFORMATION 02/2021 Cardioversion. INSERT/REPLACE DEFIBRILLATOR W/TRANSVERSE LEAD(S) 01/2007 medtronic, defibrillator LASER SURGERY OF INNER EYE STRANDS Left 03/18/2017 Micropulse laser LEFT eye, Dr. Herrera LASER SURGERY OF INNER EYE STRANDS Left 10/15/2016 Micropulse laser procedure of the LEFT eye; Dr. Herrera MISCELLANEOUS ORDER ([facility] ONLY) ACT 112 signed, 06/13/2020 REMOVAL OF APPENDIX 3rd grade REMOVE TONSILS & ADENOIDS, UNDER 12 Tonsillectomy/Adenoids,<12 Y/O REVISION OF SPERMATIC CORD VEINS Varicocele Excision Review of patient's allergies indicates: No Known Allergies Family History Problem Relation Name Age of Onset Cancer Mother OF LUNG ca IN 80'S/BREAST Heart Disorder Mother UT AND UP BP Hypertension Mother Cancer Father Liver Cancer Sister CA OF THE BREAST Diabetes Brother Heart Disorder Grandmother (Maternal) Diabetes Grandmother (Paternal) GREAT GRAND MOTHER Family Status Relation Status Mo Fa Sis (Not Specified) Bro Alive Faith Alive Faith Son Alive Son MGMA (Not Specified) PGMA (Not Specified) Social History Socioeconomic History Marital status: Spouse name: Milvia Number of children: 5 Years of education: Not on file Highest education level: Not on file Occupational History 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 Tobacco Use Smoking status: Former Current packs/day: 0.00 Types: Cigarettes Quit date: 06/03/1998 Years since quittin.5 Passive exposure: Past Smokeless tobacco: Current Types: Snuff Tobacco comments: previous smoker up to 5 PPD for up to 40 years; currently chews 1/2 can per day Vaping Use Vaping status: Former Substance and Sexual Activity Alcohol use: Yes Comment: few beers here and there Drug use: No Sexual activity: Not Currently Other Topics Concern Service Not Asked Blood Transfusions Not Asked Caffeine Concern Not Asked Occupational Exposure Not Asked Hobby Hazards Not Asked Sleep Concern Not Asked Stress Concern Not Asked Weight Concern Not Asked Special Diet Not Asked Back Care Not Asked Exercise Not Asked Bike Helmet Not Asked Seat Belt Not Asked Self-Exams Not Asked 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 (Adult - for ages 18 years and over): No Does your family have trouble paying for medicine? (Household - for ages 0-17 years): Not on file Food Insecurity: No Food Insecurity (03/30/2024) Food Insecurity Do you need food for this week? (Adult - for ages 18 years and over): No Are you able to get enough food for your family? (Household - for ages 0-17 years): Not on file Does your family need food this week? (Household - for ages 0-17 years): Not on file Do you always have enough food for your family? (Household - for ages 0-17 years): Not on file Transportation Needs: No Transportation Needs (03/30/2024) Transportation Needs Do you have trouble getting a ride to medical visits or work? (Adult - for ages 18 years and over):Never True Does your family have a hard time getting a ride to doctors visits? (Household - for ages 0-17 years): Not on file Has lack of transportation kept you from medical appointments, meetings, work, or from getting things needed for daily living? Check all that apply. (Adult - for ages 18 years and over): Not on file Do you (or your family) have trouble finding or paying for a ride (transportation)? (Household - for ages 0-17 years): Not on file Social Connections: Socially Integrated (03/30/2024) Social Connections How often do you feel lonely or isolated from those around you? (Adult - for ages 18 years and over): Never Housing Stability: Low Risk (03/30/2024) Housing Stability Do you currently live in a chcf or have no steady place to sleep at night? (Adult - for ages 18 years and over): No Do you think you are at risk of becoming homeless? (Adult - for ages 18 years and over): No Does your family worry about paying for your home or becoming homeless? (Household - for ages 0-17 years): Not on file Are you homeless or worried that you might be in the future? (Adult - for ages 18 years and over): Not on file Are you (or your family) homeless or worried that you might be in the future? (Household - for ages0-17 years): Not on file Review of Systems Constitutional: Positive for fatigue. Negative for activity change, chills, fever and unexpected weight change. HENT: Negative for postnasal drip, rhinorrhea and sinus pressure. Eyes: Negative for visual disturbance. Respiratory: Positive for shortness of breath. Cardiovascular: Negative for chest pain, palpitations and leg swelling. Gastrointestinal: Negative for blood in stool, constipation, diarrhea, nausea and vomiting. Genitourinary: Negative for dysuria and hematuria. Musculoskeletal: Positive for gait problem. Skin: Negative for rash. Neurological: Positive for dizziness and light-headedness. Negative for syncope. Objective BP 100/52 | Pulse 80 | Resp 16 | Ht 1.753 m (5' 9") | Wt 84.8 kg (187 lb) | BMI 27.62 kg/m | BSA 2.03 m Physical Exam Vitals and nursing note reviewed. Constitutional: General: He is awake. Appearance: Normal appearance. He is well-developed. HENT: Head: Normocephalic and atraumatic. Eyes: General: No scleral icterus. Extraocular Movements: Extraocular movements intact. Neck: Vascular: Normal carotid pulses. No carotid bruit or JVD. Cardiovascular: Rate and Rhythm: Normal rate and regular rhythm. Pulses: Carotid pulses are 2+ on the right side and 2+ on the left side. Radial pulses are 2+ on the right side and 2+ on the left side. Posterior tibial pulses are 2+ on the right side and 2+ on the left side. Heart sounds: S1 normal and S2 normal. Murmur heard. Pulmonary: Effort: Pulmonary effort is normal. Breath sounds: Normal breath sounds. No decreased breath sounds, wheezing, rhonchi or rales. Chest: Comments: Left pectoral region; ICD site no evidence of threatened erosion Abdominal: Palpations: Abdomen is soft. Musculoskeletal: Cervical back: Neck supple. Right lower leg: No edema. Left lower leg: No edema. Skin: General: Skin is warm and dry. Neurological: General: No focal deficit present. Mental Status: He is alert and oriented to person, place, and time. Psychiatric: Attention and Perception: Attention normal. Mood and Affect: Mood normal. Speech: Speech normal. Behavior: Behavior normal. Behavior is cooperative. Thought Content: Thought content normal. Cognition and Memory: Cognition normal. Judgment: Judgment normal. RESULTS: BiV ICD Interrogation today Independently performed and interpreted by myself Presenting Rhythm AP-BiV Paced Underlying rhythm CHB Battery function Good Lead testing RA 0.3mV ; 418 ohms; 0.5V @ 0.4ms RV 18.4mV; 456 ohms; 0.75V @ 0.4ms Left bundlB 418 ohms; 1V @ 0.4ms Arrhythmia log 11/06/2024 had VT that responded to ATP 10/24/2025: had VT that did not respond to the ATP-but eventually terminated on its own Reprogramming: VT detection interval lowered from 450ms to 480ms VT Monitor interval changed from 490ms to 510ms Upper tracking rate changed from 120bpm to 115bpm Upper sensor rate from 120 to 115bpm LV amplitude 1.5V t 2V LV amplitude safety margin +aut to +1V Echocardiogram: : The left ventricular cavity size is severely enlarged. The wall thickness is normal in segments with normal wall motion. The inferior and posterior nielson are thinned and akinetic. The septum is severely hypokinetic to akinetic. The remaining left ventricular myocardial wall segments are hypokinetic The left ventricular systolic function is severely reduced. The qualitative LV ejection fraction is 20-24% (severely reduced). The left ventricular diastolic function is moderately abnormal (grade II). The left atrium is moderately enlarged. Mild secondary mitral regurgitation is present. Mild tricuspid regurgitation is present. Compared to prior study of July 07, 2023, there is no significant change. Lab Work Reviewed: Component Latest Ref Rng 08/09/2024 09/02/2024 12/05/2024 12/06/2024 Albumin 3.8 - 5.0 g/dL 3.7 (L) AST 10 - 50 U/L 53 (H) Alkaline Phosphatase 35 - 130 U/L 89 ALT 10 - 50 U/L 68 (H) Bilirubin, Total <=1.2 mg/dL 0.3 Bilirubin, Direct 0.0 - 0.3 mg/dL 0.1 Protein 6.0 - 8.3 g/dL 6.1 Triglycerides <=174 mg/dL 127 Cholesterol <200 mg/dL 127 HDL Cholesterol >39 mg/dL 36 (L) Non-HDL Cholesterol <=159 mg/dL 91 LDL Cholesterol <=129 mg/dL 66 Albumin, Random Urine mg/dL <1.20 Creatinine, Random Urine mg/dL 71 Albumin / Creatinine Ratio, Urine <30 mg/g Creat <17 Hemoglobin A1C 4.0 - 5.6 % 6.9 (H) Estimated Average Glucose <126 mg/dL 151 (H) TSH 0.27 - 4.20 uIU/mL 0.60 Fingerstick INR INR 2.0 Magnesium 1.5 - 2.6 mg/dL 2.0 Digoxin Level 0.5 - 1.1 ng/mL 0.7 Vitamin B12 232 - 1,245 pg/mL 396 ASSESSMENT: VT/VF s/p ICD shock in 01/2013 and most recently 10/2024 one responded to ATP other did not and resolved on its own Atrial flutter (atypical) s/p DCCV but did not hold; on coumadin and amiodarone [id number] 5 (age, CHF, CAD, DM, HTN); s/p AVN ablation 03/25/2021 ICM s/p ICD 01/2007 gent change 02/27/2016 ([place] ICD lead) s/p upgrade to BiV ICD 09/19/2020 LBBB Chronic heart failure with reduced EF and diastolic dysfunction, NYHA Class II Sinus bradycardia DM CAD s/p CABGx3 in 1997 History of LV apical thrombus has been on coumadin since HTN HLD PLAN: -Device interrogated and reprogrammed today as outlined above -Continue amiodarone at BID dosing -LFT and TFT ok -Continue digoxin; level is good -Continue lasix, toprol. Liptor and coumadin -He is not a candidate for MTM clinic so I have cancelled that appointment -If he has more VT will need to consider adding mexiletine -stop lisinopril and see if dizziness and lightheadedness and hypotension improves and if it doesn't we ever need to consider midodrine -Continue with routine device checks -EP f/u in April rather than general cardiology -Then get pt in to see Dr. Mcginnis in [place] Cortez DO documented in this encounter Nursing Notes * Zakiya Hector NRCMA - 12/06/2024 12:50 PM EST Patient was identified by name and date of . Examination Room: 16 Name: Shane Lynch Date of : (1945). 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 Would you like to sign up? I can activate it for you? ALREADY ACTIVE Do you have video visit capabilities (email and smart phone)? No. Would you be interested in 6 or 12 return visit being scheduled as a video visit if the provider approves? No Patient was instructed to not get up on the exam table/exam chair until directed and assisted by their provider; patient is to remain seated in the chair/ wheelchair/ exam table/ exam chair for fall prevention and safety reasons. Patient is aware to have assistance to step down off exam table/exam chair with personnel. Patient voiced full comprehension of instructions. DAVID Ramirez documented in this encounter Plan of Treatment Upcoming Encounters Date Type Department Care Team (Late st Contact Info) Description 01/26/2025 11:20 AM EST Anticoagulation Pharmacy, Rhonda Duran [address] [phone] [facility] [address] [facility] [place] [address] 01/26/2025 11:30 AM EST Office Visit Family Practice, Rhonda Howard [address] [phone] Beth Mcginnis, DO [address] [place] [address] 02/28/2025 10:30 AM EDT Antico[facility] Pharm[facility], [place] [phone] [facility] [address] [facility], [place] [address] 02/28/2025 10:40 AM EDT Office Visit Pharmacy, [place] [phone] [facility] [address] [facility], [place] [address] 03/31/2025 11:50 AM EDT Office Visit Family Practice, [place], [place] [phone] Beth Mcginnis, DO [address] [place] [address] 05/24/2025 10:00 AM EDT Office Visit Cardiology, [facility] [address] [facility] [place] [address] Le[facility] Steele [facility] [address] [facility] [place] [address] 11/06/2025 10:30 AM EST Office Visit Cardiology, [facility] [address] [facility] [place] [address] Bang Mcginnis DO [address] [facility] [place] [address] Scheduled Referrals Name Type Priority Associated Diagnoses Orde r Schedule ELECTROPHYSIOLOGY REFERRAL OP Referral Within 10 days (routine) VT (ventricular tachycardia) (HCC) Atypical atrial flutter (HCC) Encounter for implantable defibrillator 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 or check Ordered: 09/26/2024 Health Maintenance Due Date Last Done Comments [...] 03/14/2022, Additional history exists B-12 12/06/2025 12/06/2024, 04/2023, 03/14/2022, Additional history exists DIG LEVEL [...] as of this encounter Visit Diagnoses Diagnosis Sustained VT (ventricular tachycardia) ([facility])- Primary Paroxysmal ventricular tachycardia Atypical atrial flutter (HCC) Atrial flutter Bradycardia, sinus Other specified cardiac dysrhythmias Chronic heart failure with reduced ejection fraction and diastolic dysfunction (HCC) Ischemic cardiomyopathy Other specified forms of chronic ischemic heart disease Orthostatic hypotension VT (ventricular tachycardia) ([facility]) [I47.20] Paroxysmal ventricular tachycardia Encounter for implantable defibrillator 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 or check [Z45.02] Fitting and adjustment of automatic implantable cardiac defibrillator documented in this encounter Advance Directives * Full Code [...] Power of Attor ale? No Care Teams Medical Officer Relationship Specialty Start Date End Date Beth Mcginnis DO PCP - General 08/28/10 documented as of this encounter
--- OUTSIDE RECORDS SUMMARY | 2025-01-19 16:56 | External Medical Summary | Summary of Care ---
Author Name Unknown Organization [facility] Address [address] [place] [address] Phone [phone] Care Team Providers Care Gang Worker Name Role Phone Beth Mcginnis Primary Care Provider Encounter Details Date Type Department Care Team (Late st Contact Info) Description 12/12/2024 Population Health External Data Unspecified Department Allergies No known active allergiesdocumented as of this encounter (statuses as of 12/12/2024) Medications OMEGA-3 FATTY ACIDS 1000 MG OR [...] the evening. Take with meals. Obtaining from [facility] PAP. 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 10/15/2016 BPH with obstruction/lower urinary tract [...] as of this encounter (statuses as of 12/12/2024) Resolved Problems Problem Noted Date Diagnosed Date [...] as of this encounter (statuses as of 12/12/2024) Immunizations Name Administration Dates Next Due COVID-19 mRNA, LNP-s, No Pre serve, 2-Dose Series (Evolv) 11/19/2021,03/02/2021,02/08/2021 Pneumococcal Conjugate Vacc, 13 Valent (Prevnar) [...] fi le documented as of this encounter Plan of Treatment Upcoming Encounters Date Type Department Care Team (Late st Contact Info) Description 01/26/2025 11:20 AM EST Anticoagulation Pharmacy, [place] [address] [place] [address] [place], [facility] [address] [facility] [place] [address] 01/26/2025 11:30 AM EST Office Visit Family Practice, [place] [address] [place] [address] Beth Mcginnis DO [address] [facility] [place] [address] 02/28/2025 10:30 AM EDT Anticoagulation Pharmacy, [facility] [address] [place] [phone] [facility] [address] [facility] [place] [address] 02/28/2025 10:40 AM EDT Office Visit Pharmacy, [place] [address] [facility] [place] [address] [place], [facility] [address] [facility] [place] [address] 03/31/2025 11:50 AM EDT [facility] [address] [place] [phone] Beth Mcginnis, DO [address] [place] [address] 05/24/2025 10:00 AM EDT Office Visit Cardiology, [facility] [address] [place] [address] Lea Steele CRNP [address] [place] [address] 11/06/2025 10:30 AM EST Office Visit Cardiology, [facility] [address] [place] [address] Bang Mcginnis, DO [address] [place] [address] Health Maintenance Due Date Last Done Comments [...] Power of Attor ale? No Care Teams Gang Worker Relationship Specialty Start Date End Date Beth Mcginnis DO PCP - General 08/28/10 documented as of this encounter
--- OUTSIDE RECORDS SUMMARY | 2025-01-19 16:56 | External Medical Summary | Summary of Care ---
Author Name Unknown Organization [facility] Address [address] [facility] [address] Phone [phone] Care Team Providers Care In Home Sales Consultant Name Role Phone Alejandro Fry DO Primary Care Provider Reason for Visit * Reason Comments eRx-Medication Refill Encounter Details Date Type Department Care Team (Late st Contact Info) Description 12/31/[address] [facility] [address] [place] [address] Alejandro Fry DO [address] [facility] [place] [address] Nodular prostate with urinary obstruction Allergies No known active allergiesdocumented as of this encounter (statuses as of 01/02/2025) Medications OMEGA-3 FATTY ACIDS 1000 MG OR CAPSIndications:A SCVD (arteriosclerotic cardiovascular disease) 2-3 per day 0 003 Active ASPIRIN 81 MG PO CHEWIndications:I schemic cardiomyopathy,DM type 2, goal A1c below 7 take one tablet daily 100 Tab 3 011 Active LANCETS MISCIndications:D M type 2, goal A1c below 7 test blood sugars 3-4 times daily 2 Box 3 013 Active Multiple Vitamins-Minerals (PRESERVISION AREDS 2) Capsule Take 1 Capsule by mouth in the morning and 1 Capsule before bedtime. 020 Active CPAP every night at bedtime. Active FreeStyle Judith 2 Sensor Use as directed . Change every 14 days 6 Each 3 022 Active traMADol HCl 50 MG Oral Tablet (Ultram)Indicatio ns:Left leg cellulitis TAKE 1 TABLET BY MOUTH EVERY 8 HOURS NEEDED FOR SEVERE PAIN 30 Tablet 023 Active Ozempic (1 MG/DOSE) 4 MG/3ML Subcutaneous Solution Pen-injector (Semaglutide (1 MG/DOSE)) Through PAP 023 Active Tresiba FlexTouch 100 UNIT/ML Subcutaneous Solution [...] the evening. Take with meals. Obtaining from novonordisk PAP. Active Metoprolol Succinate ER 25 MG Oral Tablet Extended Release 24 Hour (toPROL XL)Indications:Is chemic cardiomyopathy Take 1 Tablet by mouth in the morning. 90 Tablet 5 023 Active Nitroglycerin 0.4 MG Sublingual Tablet Sublingual (Nitrostat)Indica tions:ASCVD (arteriosclerotic cardiovascular disease) Place 1 Tablet under the tongue every 5 minutes as needed for Pain, Chest. 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 40 Tablet 3 024 Active Sertraline HCl 25 MG Oral Tablet (Zoloft)Indicatio ns:Mild depression Take 1 Tablet by mouth in the morning. Take with 50mg.. 90 Tablet 2 024 Active Sertraline HCl 50 MG Oral Tablet (Zoloft)Indicatio ns:Depression,Ang er TAKE 1 TABLET EVERY DAY 90 Tablet 3 024 Active Furosemide 40 MG Oral Tablet (Lasix)Indication s:Heart failure, systolic, due to CAD (HCC),Chronic heart failure with reduced ejection fraction and diastolic dysfunction (HCC) TAKE 1 TABLET TWICE DAILY 180 Tablet 1 024 Active Atorvastatin Calcium 80 MG Oral Tablet (Lipitor)Indicati ons:Elevated LFTs,Dyslipidemia , goal LDL below 70 Take 0.5 Tablets by mouth in the morning. 024 Active Lisinopril 2.5 MG Oral Tablet (Prinivil)Indicat ions:Ischemic cardiomyopathy TAKE 1 TABLET EVERY DAY 90 Tablet 3 024 Active metFORMIN HCl 1000 MG Oral Tablet (Glucophage) Take 1 Tablet by mouth in the morning and 1 Tablet before bedtime. 180 Tablet 1 025 Active Finasteride 5 MG Oral Tablet (Proscar)Indicati ons:Nodular prostate with urinary obstruction TAKE 1 TABLET EVERY DAY 90 Tablet 1 025 Active Finasteride 5 MG Oral Tablet (Proscar)Indicati ons:Nodular prostate with urinary obstruction TAKE 1 TABLET EVERY DAY 90 Tablet 1 024 2024 Discontinued documented as of this encounter (statuses as of 01/02/2025) Active Problems Problem Noted Date Diagnosed Date [...] implantable de fibrillator 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 or check 02/15/2007 intermediate current use of anticoagulant therapy 0 08/12/2005 Ischemic cardiomyopathy documented as of this encounter (statuses as of 01/02/2025) Resolved Problems Problem Noted Date Diagnosed Date [...] as of this encounter (statuses as of 01/02/2025) Immunizations Name Administration Dates Next Due COVID-19 mRNA, LNP-s, No Pre serve, 2-Dose Series (Sevar Consult) 11/19/2021,03/02/2021,02/08/2021 Pneumococcal Conjugate Vacc, 13 Valent (Prevnar) [...] ages 0-17 years) Not on file 03/30/2024 Food Insecurity Answer Date Recorded Within the past 12 months, y ou worried that your food would run out before you got the money to buy more. Never true 03/30/20 24 Within the past 12 months, t he food you bought just didn't last and you didn't have money to get more. Never true 03/30/2024 Do you need food for this week? No 03/30/2024 Sex and Gender Information Value Date [...] encounter Miscellaneous Notes * Telephone Encounter - Nina Perera RP - 01/02/2025 9:37 AM EST Signed Prescriptions: Disp Refills Finasteride 5 MG Oral Tablet (Proscar) 90 Tab*1 Sig: TAKE 1 TABLET EVERY DAYAuthorizing Provider: ALEJANDRO FRY User: NINA PERERA documented in this encounter Plan of Treatment Upcoming Encounters Date Type Department Care Team (Late st Contact Info) Description 01/26/2025 11:20 AM EST Anticoagulation Pharmacy, [place] [phone] [facility] [address] [facility] [address] 01/26/2025 11:30 AM EST Office Visit Family Practice, [place]onda [place], [place] [phone] Alejandro Fry DO [address] [place] [address] 02/28/2025 10:30 AM EDT Anticoagulation Pharmacy, [place] [phone] [facility] [address] [facility] [address] 02/28/2025 10:40 AM EDT Office Visit Pharmacy, [place] [phone] [facility] [address] [facility] [address] 03/31/2025 11:50 AM EDT Office Visit Family Practice, [place]onda [place] [phone] Alejandro Fry DO [address] [place] [address] 05/24/2025 10:00 AM EDT Office Visit Cardiology, [facility] [address] [place] [address] Lea Steele CRNP [address] [place] [address] 11/06/2025 10:30 AM EST Office Visit Cardiology, [facility] [address] [place] [address] Bang Fry DO [address] [place] [address] Health Maintenance Due Date Last Done Comments [...] as of this encounter Visit Diagnoses Diagnosis Nodular prostate with urinary obstruction documented in this encounter Advance Directives * [...] Power of Attor ale? No Care Teams In Home Sales Consultant Relationship Specialty Start Date End Date Alejandro Fry DO PCP - General 08/28/10 documented as of this encounter
--- OUTSIDE RECORDS SUMMARY | 2025-01-19 16:57 | External Medical Summary | Summary of Care ---
Author Name Unknown Organization [facility] Address [address] [facility] [address] Phone [phone] Care Team Providers Care Accounting Clerk Name Role Phone Beth Mcginnis Primary Care Provider [phone] Reason for Visit * Reason Comments Dosage Adjustment In Person (Anticoag Cl inic) Encounter Details Date Type Department Care Team (Latest Contact Info) Description 12/05/2024 10:20 AM EST Anticoagulation Pharmacy, [facility] [address] [place] [address] [facility] [address] [place] [address] Anticoagulation management encounter*; Atypical atrial flutter (HCC); Ischemic cardiomyopathy Allergies No known active allergiesdocumented as of this encounter (statuses as of 12/05/2024) Medications OMEGA-3 FATTY ACIDS 1000 MG OR [...] the evening. Take with meals. Obtaining from [facility] PAP. 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,Sustained VT (ventricular tachycardia) (HCC) TAKE 2 TO 1 TABLET DAILY INSTRUCTED BY THE [...] as of this encounter (statuses as of 12/05/2024) Active Problems Problem Noted Date Diagnosed Date [...] implantable de fibrillator 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 or check 02/15/2007 [facility] current use of anticoagulant therapy 0 08/12/2005 Ischemic cardiomyopathy documented as of this encounter (statuses as of 12/05/2024) Resolved Problems Problem Noted Date Diagnosed Date [...] as of this encounter (statuses as of 12/05/2024) Immunizations Name Administration Dates Next Due COVID-19 mRNA, LNP-s, No Pre serve, 2-Dose Series (eHarmony) 11/19/2021,03/02/2021,02/08/2021 Pneumococcal Conjugate Vacc, 13 Valent (Prevnar) [...] fi le documented as of this encounter Progress Notes * Faye Anderson RPh - 12/05/2024 10:20 AM EST Medication Therapy Disease Management - Anticoagulation Patient: Shane Lynch | : 1945 Subjective Patient-Reported Symptoms: Patient Findings Negatives: Signs/symptoms of thrombosis, Signs/symptoms of bleeding, Change in health, Change in alcohol use, Change in activity, Upcoming invasive procedure, Missed doses, Extra doses, Change in medications, Change in diet/appetite, Bruising Objective Current Warfarin Dose As of 12/05/2024 Warfarin maintenance plan: 10 mg (10 mg x 1) every Mon; 5 mg (10 mg x 0.5) all other days INR Result As of 12/05/2024 INR goal: 2.0-3.0 INR used for dosin.0 (12/05/2024) Assessment & Plan Warfarin Plan As of 12/05/2024 Full warfarin instructions: 10 mg every Mon; 5 mg all other days No change documented: Faye Anderson RPh Next INR check: 01/26/2025 Repeat PT/INR in 6 week(s) Weekly dose: not changed Additional Dosing Information: Description Amiodarone 200 mg BID maintenance I spent a total of 10-19 minutes (exact time 10 mins) on the date of service in preparation, delivery, and documentation of the care provided to Shane Lynch excluding any time spent in the performance of separately billed services or time spent by another provider/QHP. Faye Anderson [facility] Clinical Pharmacist 12/05/2024, 10:20 AM documented in this encounter Plan of Treatment Upcoming Encounters Date Type Department Care Team (Late st Contact Info) Description 12/06/2024 12:15 PM EST Office Visit Cardiology, [facility] [address] [facility] [place] [address] Iliana Cortez, [address] [place] [address] 12/06/2024 2:00 PM EST Office Visit Cardiology, [facility] [address] [facility] [place] [address] [place] [address] 01/26/2025 11:20 AM EST Anticoagulation Pharmacy, [address] [facility] [place] [phone] [place] [address] 01/26/2025 11:30 AM EST Office Visit Family Practice, [facility] [address] [place] [phone] Beth Mcginnis DO [address] [place] [address] 02/28/2025 10:30 AM EDT Anticoagulation Pharmacy, [address] [place] [phone] [facility] [address] [facility], [place] [address] 02/28/2025 10:40 AM EDT Office Visit Pharmacy, Rhonda Duran [address] [facility] [facility] [address] [place] [phone] [facility] [address] [facility] [place] [address] 03/31/2025 11:50 AM EDT Office Visit [facility], [facility] [address] [facility] [place] [phone] Beth Mcginnis DO [address] [facility] [address] [place], [place] [address] 04/27/2025 1:30 PM EDT Office Visit Cardiology, [facility] [address] [facility] [place] [address] Loraine Lopez, DEBBIE [address] [place] [address] [place] [phone] Health Maintenance Due Date Last Done Comments DXA Scan 1945 Adult Wellness Visit 01/01/2019 01/01/2018 DIG LEVEL FOR MEDICATION MONITORING YEARLY 04/27/2024 04/27/2023, 07/03/2021 Diabetic Eye Exam 06/10/2024 06/10/2023, , 06/09/2023, Additional history exists COVID-19 Vaccine ( season) 2024 11/19/2021, 03/02/2021, 02/08/2021 Albumin/Creatinine Ratio 08/28/2024 023, 03/14/2022, 08/22/2019, Additional history exists B-12 08/28/2024 08/28/2023, 02/22, 02/27/2021, Additional history exists HbA1c 02/06/2025 08/09/2024, 02/21, 11/12/2023, Additional history exists Depression Monitoring 03/30/2025 03/30/2024 GFR 09/02/2025 09/02/2024, 02/21, 11/12/2023, Additional history exists DTap/Tdap Vaccines (3 - Td or Tdap) [...] Procedure Name Priority Date/Time Associated Diagnosis Comments INR FINGERSTICK, POINT OF CARE STAT 12/05/2024 10:29 AM EST Atypical atrial flutter (HCC) Ischemic cardiomyopathy Anticoagulation management encounter documented in this encounter Results * INR FINGERSTICK, POINT OF CARE (12/05/2024 10:29 AM EST) Fingerstick INR 2.0 INR 12:41 PM EST [facility]ATORY [facility] 56-01 Blood 12/05/2024 10:2 9 AM EST 12/05/2024 12:41 PM EST Narrative [facility] - 12/05/2024 12:41 PM EST Therapeutic ranges for non-operative patients: Prophylaxsis/treatment of DVT: (Range:2.0-3.0) Treatment of pulmonary embolism:(Range:2.0-3.0) Prevention of systemic embolism from: -tissue heart valves -acute myocardial infarction -valvular heart disease -atrial fibrillation (Range: 2.0-3.0) Mechanical prosthetic valves: (Range: 2.5-3.5) us Faye Sonia Anderson [facility] LAB POINT OF CARE TEST DOCKED DEVICE UNSOLICITED RESULTS Final Result LABORATORY RHONDA 56-[address] [place], [place] [phone] [place] [address] documented in this encounter Visit Diagnoses Diagnosis Anticoagulation management encounter- Primary Encounter for therapeutic drug monitoring Atypical atrial flutter (HCC) Atrial flutter Ischemic cardiomyopathy Other specified forms of chronic ischemic heart disease documented in this encounter Advance Directives * [...] Power of Attor ale? No Care Teams Accounting Clerk Relationship Specialty Start Date End Date Beth Mcginnis DO PCP - General 08/28/10 documented as of this encounter"
--- OUTSIDE RECORDS SUMMARY | 2025-01-19 16:57 | External Medical Summary ---
Author Name Unknown Address Unknown Organization K01:[facility] - [address] [place] [address] Laboratory Report Ordering Provider Test Date Status СЕРГЕЙ GUEVARA 12/06/2024 14:04:49 Final Observation Date Value Abnormality Reference (Units ) Status Magnesium 12/06/2024 14:04:49 2.0 1.5-2.6 (m g/dL) Final Performing Location [facility] - [address] [place] [address]
--- OUTSIDE RECORDS SUMMARY | 2025-01-19 16:57 | External Medical Summary ---
Author Name Unknown Address Unknown Organization K01:[facility] [place] - [address] [place] [address] Laboratory Report Ordering Provider Test Date Status MARCO GAITAN 12/06/2024 14:04:49 Final Normal: <30 mg/g creatinine< br/>High: 30-300 mg/g creatinine
Very High: >300 mg/g creatinine
Nephrotic: >2200 mg/g creatinine Observation Date Value Abnormality Reference (Units ) Status Albumin, Urine 12/06/2024 14:04:49 <1.20 (mg/dL) Final Creatinine, Urine 12/06/2024 14:04:49 71 (mg/dL) Final Albumin/Creatinine [Mass Ratio] in Urine 12/06/2024 14:04:49 <17 <30 (mg/g Creat) Final Performing Location [facility] [place] - [address] [place] [address]
--- OUTSIDE RECORDS SUMMARY | 2025-01-19 16:57 | External Medical Summary | Summary of Care ---
Author Name Unknown Organization [facility] Address [address] [facility] [place] [address] Phone [phone] Care Team Providers Care Tube Draw Helper Name Role Phone YahirleoBeth gilbert Trip LING Primary Care Provider [phone] Reason for Visit * Reason Comments Outpatient Testing Encounter Details Date Type Department Care Team (Late st Contact Info) Description 12/06/2024 2:10 PM EST Laboratory Laboratory, [facility] [place] [phone] [facility] [address] Heart failure, systolic, due to CAD (HCC); Chronic heart failure with reduced ejection fraction and diastolic dysfunction (HCC); Encounter for long-term (current) use of medications; Abnormal LFTs; Dyslipidemia, goal LDL below 70; Type 2 diabetes mellitus with hemoglobin A1c goal of less than 8.0% (HCC); Type 2 diabetes mellitus with diabetic nephropathy, with long-term current use of insulin (HCC) Allergies No known active allergiesdocumented as of this encounter (statuses as of 12/06/2024) Medications OMEGA-3 FATTY ACIDS 1000 MG OR [...] Warfarin Sodium 10 MG Oral Tablet (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)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,Sustained VT (ventricular [...] as of this encounter (statuses as of 12/06/2024) Active Problems Problem Noted Date Diagnosed Date [...] as of this encounter (statuses as of 12/06/2024) Resolved Problems Problem Noted Date Diagnosed Date [...] as of this encounter (statuses as of 12/06/2024) Immunizations Name Administration Dates Next Due COVID-19 mRNA, LNP-s, No Pre serve, 2-Dose Series ([employer]) 11/19/2021,03/02/2021,02/08/2021 Pneumococcal Conjugate Vacc, 13 Valent (Prevnar) [...] 11:20 AM EST Anticoagulation Pharmacy, Rhonda Duran Rebecca [place] [phone] [facility] [address] [place] [address] 01/26/2025 11:30 AM EST Office Visit Family Practice, [place] [phone] Beth Mcginnis DO [address] [place] [address] 02/28/2025 10:30 AM EDT Anticoagulation Pharmacy, Rhonda Duran 226 [place] [phone] [facility] [address] [facility] [address] 02/28/2025 10:40 AM EDT Office Visit Pharmacy, Rhonda Fischer [facility] [place] [phone] [facility] [address] [facility] [address] 03/31/2025 11:50 AM EDT Office Visit Family Practice, [place] [address] [phone] Beth Mcginnis DO 226 [facility] [address] 05/24/2025 10:00 AM EDT Office Visit Cardiology, [facility] 132 [facility] [place] [address] Lea Steele CRNP 400 [facility] [place] [address] 11/06/2025 10:30 AM EST Office Visit Cardiology, [facility] 132 [facility] [place] [address] Bang Mcginnis DO 132 [facility] [place] [address] Pending Results Name Type Priority Associated Diagnoses Date /Time MAGNESIUM Lab Routine Heart failure, systolic, due to CAD (HCC) Chronic heart failure with reduced ejection fraction and diastolic dysfunction (HCC) Encounter for long-term (current) use of medications 12/06/2024 2:04 PM EST HEPATIC FUNCTION PANEL Lab Routine Abnormal LFTs 12/06/2024 2:04 PM EST LIPID PANEL WITH DIRECT LDL IF TG IS HIGH Lab Routine Dyslipidemia, goal LDL below 70 12/06/2024 2:04 PM EST DIGOXIN LEVEL Lab Routine 12/06/2024 2:04 PM EST ALBUMIN / CREATININE RATIO, URINE Lab Routine Type 2 diabetes mellitus with hemoglobin A1c goal of less than 8.0% (HCC) Type 2 diabetes mellitus with diabetic nephropathy, with long-term current use of insulin (HCC) 12/06/2024 2:04 PM EST VITAMIN B12 Lab Routine Encounter for long-term (current) use of medications 12/06/2024 2:04 PM EST Health Maintenance Due Date Last Done Comments DXA Scan 1945 Adult Wellness Visit 01/01/2019 01/01/2018 DIG LEVEL FOR MEDICATION MONITORING YEARLY 04/27/2024 04/27/2023, 07/03/2021 Diabetic Eye Exam 06/10/2024 06/10/2023, , 06/09/2023, Additional history exists COVID-19 Vaccine ( season) 2024 11/19/2021, 03/02/2021, 02/08/2021 Albumin/Creatinine Ratio 08/28/2024 023, 03/14/2022, 08/22/2019, Additional history exists B-12 08/28/2024 08/28/2023, 2 12/2021, 02/27/2021, Additional history exists HbA1c 02/06/2025 08/09/2024, 04/1 , 11/12/2023, Additional history exists Depression Monitoring 03/30/2025 03/30/2024 GFR 09/02/2025 09/02/2024, 04/1 , 11/12/2023, Additional history exists DTap/Tdap Vaccines (3 [...] as of this encounter Visit Diagnoses Diagnosis Heart failure, systolic, due to CAD (HCC) Unspecified systolic heart failure Chronic heart failure with reduced ejection fraction and diastolic dysfunction (HCC) Encounter for long-term (current) use of medications Encounter for long-term (current) use of other medications Abnormal LFTs Other abnormal blood chemistry Dyslipidemia, goal LDL below 70 Other and unspecified hyperlipidemia Type 2 diabetes mellitus with hemoglobin A1c goal of less than 8.0% (HCC) Type 2 diabetes mellitus with diabetic nephropathy, with long-term current use of insulin (HCC) documented in this encounter Advance Directives * [...] Power of Attor ale? No Care Teams Tube Draw Helper Relationship Specialty Start Date End Date Beth Mcginnis DO PCP - General 08/28/10 documented as of this encounter
--- OUTSIDE RECORDS SUMMARY | 2025-01-19 16:57 | External Medical Summary ---
Author Name Unknown Address Unknown Organization K01:[facility] - [address] [place] [address] Laboratory Report Ordering Provider Test Date Status CARTER WONG 12/06/2024 14:04:49 Final Recommended trough therapeut ic ranges:
0.5 to 0.8 for heart failure
0.5 to 1.1 for atrial fibrillation Observation Date Value Abnormality Reference (Units ) Status Digoxin 12/06/2024 14:04:49 0.7 0.5-1.1 (n g/mL) Final Performing Location [facility] - [address] [place] [address]
--- OUTSIDE RECORDS SUMMARY | 2025-01-19 16:57 | External Medical Summary ---
Author Name Unknown Address Unknown Organization K0G:[facility] [place] [facility] - [address] [place] [address] Laboratory Report Ordering Provider Test Date Status ROD GREENE 12/06/2024 14:04:49 Final Observation Date Value Abnormality Reference (Units ) Status Albumin 12/06/2024 14:04:49 3.7 Below low normal 3.8-5.0 (g/dL) Final AST (Aspartate aminotransferase) 12/06/2024 14:04:49 53 Above high normal 10-50 (U/L) Final Alk Phos 12/06/2024 14:04:49 89 35-130 (U/L) Final ALT (Alanine aminotransferase) 12/06/2024 14:04:49 68 Above high normal 10-50 (U/L) Final Bilirubin, Total 12/06/2024 14:04:49 0.3 <=1.2 (mg/dL) Final Bilirubin, Direct 12/06/2024 14:04:49 0.1 0.0-0.3 (mg/dL) Final Protein 12/06/2024 14:04:49 6.1 6.0-8.3 (g/dL) Final Performing Location LAB[facility]ATORY [place] [facility] 0 - [address] [place] [address]
--- OUTSIDE RECORDS SUMMARY | 2025-01-19 16:57 | External Medical Summary ---
Author Name Unknown Address Unknown Organization K01:LABORATORY [facility] - [address] [place] [address] Laboratory Report Ordering Provider Test Date Status MARCO GAITAN 12/06/2024 14:04:49 Final Observation Date Value Abnormality Reference (Units ) Status Vitamin B12 12/06/2024 14:04:49 [phone] (pg/mL) Final Performing Location LAB[facility]ATORY [facility] - [address] [place] [address]
--- OUTSIDE RECORDS SUMMARY | 2025-01-19 16:57 | External Medical Summary | Summary of Care ---
Author Name Unknown Organization [facility] Address [address] [facility] [place] [address] Phone [phone] Care Team Providers Care Stripper And Taper Name Role Phone Beth Mcginnis Primary Care Provider [phone] Reason for Visit * Reason Onset Date Comments Encounter Created in Error 12/06/2024 Encounter Details Date Type Department Care Team (Late st Contact Info) Description 12/06/2024 Telephone Cardiology, [place] [address] [facility] [place] [address] Iliana Cortez DO 400 [facility] [place] [phone] Encounter created in error Allergies No known active allergiesdocumented as of [...] the evening. Take with meals. Obtaining from [employer] [place] PAP. 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 12/06/2024, 1:07 PM, DAVID Hodge documented in this encounter Plan of Treatment Upcoming Encounters Date Type Department Care Team (Late st Contact Info) Description 12/06/2024 2:00 PM EST Office Visit Cardiology, Health system 132 [facility] [place] [address] [facility] Cardiology [facility] 132 [employer] [place] [address] Arrived 01/26/2025 11:20 AM EST Anticoagulation Pharmacy, Rhonda Fischer [facility] [place] [phone] [facility] [address] [place] [address] [place] [address] 01/26/2025 11:30 AM EST Office Visit Family Practice, Rhonda Fischer [place] [facility] [place] [phone] Beth Mcginnis, DO [address] [place], [place] [address] 02/28/2025 10:30 AM EDT Anticoagulation Pharmacy, Rhonda [place] [phone] [facility] [address] [facility], [place] [address] 02/28/2025 10:40 AM EDT Office Visit Pharmacy, Rhonda [place] [phone] [facility] [address] [facility], [place] [address] 03/31/2025 11:50 AM EDT Office [facility] [place], [place] [phone] Beth Mcginnis DO [address] [facility] [place] [address] 04/27/2025 1:30 PM EDT Office Visit Cardiology, Health system 132 [facility] [place] [address] Loraine Lopez CRNP [address] [place] [address] Health Maintenance Due Date Last Done Comments [...] as of this encounter Visit Diagnoses Diagnosis Encounter Created In Error- Primary documented in this encounter Advance Directives * [...] Power of Attor ale? No Care Teams Stripper And Taper Relationship Specialty Start Date End Date KoBeth dumont DO PCP - General 08/28/10 documented as of this encounter
--- OUTSIDE RECORDS SUMMARY | 2025-01-19 16:57 | External Medical Summary | Summary of Care ---
Author Name Unknown Organization [facility] Address [address] [place] [address] Phone [phone] Care Team Providers Care Informatics Scientist Name Role Phone Robynruss Beth Dominique Primary Care Provider [phone] Encounter Details Date Type Department Care Team (Late st Contact Info) Description 12/06/2024 Result Scan Unspecified Department Iliana Cortez DO 400 [facility] [place] [address] <No scans attached> Allergies No known active [...] the evening. Take with meals. Obtaining from [employer] PAP. 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 0 08/12/2005 [...] mRNA, LNP-s, No Pre serve, 2-Dose Series ([employer]) 11/19/2021,03/02/2021,02/08/2021 Pneumococcal Conjugate Vacc, 13 Valent (Prevnar) [...] 11:20 AM EST Anticoagulation Pharmacy, Rhonda Fischer Renee [address] [place] [phone] [facility] [address] [facility] [address] 01/26/2025 11:30 AM EST Office Visit Family Practice, Rhonda Howard [address] [place] [phone] Beth Mcginnis DO 226 [place] [address] 02/28/2025 10:30 AM EDT Anticoagulation Pharmacy, Rhonda Fischer [place]enee 226 [place] [phone] [facility] [address] [facility] [address] 02/28/2025 10:40 AM EDT Office Visit Pharmacy, Rhonda Fischer [place]ene[place] 226 [place] [phone] [facility] [address] [place] [facility] [place] [address] 03/31/2025 11:50 AM EDT Office Visit [facility] 226 [facility] [place] [phone] Beth Mcginnis DO [address] [place] [address] 04/27/2025 1:30 PM EDT Office Visit Cardiology, [facility] 132 [facility] [place] [address] Loraine Lopez CRNP 400 [facility] [place] [address] 05/24/2025 10:00 AM EDT Office Visit Cardiology, [facility] 132 [facility] [place] [address] Lea Steele CRNP [address] [place] [address] Health Maintenance Due Date Last Done Comments [...] Depression Monitoring 03/30/2025 03/30/2024 GFR 09/02/2025 09/02/2024, 04/, 11/12/2023, Additional history exists DTap/Tdap Vaccines (3 [...] Date/Time Associated Diagnosis Comments CARDIOLOGY SCANNED RESULT 12/06/2024 documented in this encounter Results * CARDIOLOGY SCANNED RESULT (12/06/2024) 12/06/2024 Iliana Cortez DO OTHER Final R esult documented in this encounter Advance Directives * [...] Power of Attor ale? No Care Teams Informatics Scientist Relationship Specialty Start Date End Date Beth Mcginnis DO PCP - General 08/28/10 documented as of this encounter
--- OUTSIDE RECORDS SUMMARY | 2025-01-19 16:57 | External Medical Summary ---
Author Name Unknown Address Unknown Organization K01:[facility] - 100 [facility] [place] [address] Laboratory Report Ordering Provider Test Date Status CARTER WONG 12/06/2024 14:04:49 Final Observation Date Value Abnormality Reference (Units ) Status Triglyceride 12/06/2024 14:04:49 127 <=174 ( mg/dL) Final Triglyceride Reference Range s (mg/dL):
<150 Acceptable
150-174 Borderline high
175-499 High
>=500 Very high Cholesterol 12/06/2024 14:04:49 127 <200 (mg /dL) Final Total Cholesterol Reference Ranges (mg/dL):
<200 Desirable
200-239 Borderline high
>=240 High HDL 12/06/2024 14:04:49 36 Below low normal >39 (mg/dL) Final HDL Cholesterol Reference Ra nges (mg/dL):
>=60 High (Desirable)
<50 Low (Undesirable) For Females
<40 Low (Undesirable) For Males NON-HDL CHOLESTEROL 12/06/2024 14:04:49 91 <=159 (mg/dL) Final Non-HDL Cholesterol Referenc e Range (mg/dL):
<100 Target level for high risk ASCVD patient
<130 Optimal for general population
130-159 Near optimal for general population
160-189 Borderline High
190-219 High
>=220 Very High LDL, (calculated) 12/06/2024 14:04:49 66 <= 129 (mg/dL) Final LDL Cholesterol Reference Ra nges (mg/dL):
<70 Target level for high risk ASCVD patient
<100 Optimal for general population
100-129 Near optimal for general population
130-159 Borderline high
160-189 High
>=190 Very high Performing Location [facility] - [address] [facility] [address]
--- OUTSIDE RECORDS SUMMARY | 2025-01-19 16:58 | External Medical Summary | Summary of Care ---
Author Name Unknown Organization [facility] Address [address] [facility] [place] [address] Phone [phone] Care Team Providers Care Mechanical Detailer Name Role Phone Beth Mcginnis Primary Care Provider Reason for Visit * Reason Onset Date Comments Referral 11/14/2024 Encounter Details Date Type Department Care Team (Late st Contact Info) Description 11/14/2024 [facility] 132 [facility] [place] [address] Marc, [facility] Cardiology [facility] 132 [facility] [place] [address] Referral Allergies No known active allergiesdocumented as of this encounter (statuses as of 11/18/2024) Medications OMEGA-3 FATTY ACIDS 1000 MG OR [...] under the skin 3 units with breakfast, 7 units with lunch, and 5 units with dinner Active Metoprolol Succinate ER 25 MG Oral [...] Warfarin Sodium 10 MG Oral Tablet (Coumadin)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,Sustained VT (ventricular [...] 24 Active Lisinopril 2.5 MG Oral Tablet (Prinivil)Gordoti ons:Ischemic cardiomyopathy TAKE 1 TABLET EVERY DAY 90 Tablet 3 10/27/20 24 Active documented as of this encounter (statuses as of 11/18/2024) Active Problems Problem Noted Date Diagnosed Date [...] implantable de fibrillator 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 or check 02/15/2007 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 0 08/12/2005 Ischemic cardiomyopathy documented as of this encounter (statuses as of 11/18/2024) Resolved Problems Problem Noted Date Diagnosed Date [...] as of this encounter (statuses as of 11/18/2024) Immunizations Name Administration Dates Next Due COVID-19 mRNA, LNP-s, No Pre serve, 2-Dose Series ([employer]) 11/19/2021,03/02/2021,02/08/2021 Diptheria/Tetanus (Adult) 11/23/1995 Pneumococcal Conjugate Vacc, [...] encounter Miscellaneous Notes * Telephone Encounter - Maria De Jesus Rosales RPh - 11/18/2024 4:19 PM EST MTDM scheduling- please see below message and attempt to schedule pt * Telephone Encounter - Loraine Lopez CRNP - 11/18/2024 4:12 PM EST César Pretty, I spoke with the patient over the phone this afternoon and explained the benefits of MTM clinic forheart failure management given severely reduced LVEF (20-25%) on last ECHO. He was agreeable and would like to set up a visit to discuss medication optimization. Do you mind reaching out to the patient and setting up an appointment? Thank you! Loraine * Telephone Encounter - Maria De Jesus Rosales RPh - 11/14/2024 2:51 PM EST César Baron, Patient is refusing appt with MTM. Not sure if you want to try to reach out and re-explain benefitsof MTM referral and reason for referral? If you talk with him and he changes his mind, let me know and I can get him scheduled. Thanks! Maria De Jesus Rosales Pharm D Clinical [facility] Pharmacist Cardiology 11/14/2024,2:52 PM * Telephone Encounter - Penny Wright radar mechanic - 11/14/2024 2:26 PM EST Received referral for HF on 10/21. 10/26 - Att1 - spoke with , apt scheduled for 11/14. 11/09 - Pt cancelled. 11/14 - Spoke with , stating patient told her that if the doctor cannot handle the medications he does not want apt and he was stubborn and refusing apt. [facility] - please advise on what to do next. Thank you, Penny Wright Kiln [employer]acker [employer] [facility] 11/14/2024,2:28 PM documented in this encounter Plan of Treatment Upcoming Encounters Date Type Department Care Team (Late st Contact Info) Description 12/05/2024 10:20 AM EST Anticoagulation Pharmacy, Rhonda [address] [facility] [place] [phone] [facility] [address] [facility] [address] 12/05/2024 10:30 AM EST Office Visit Pharmacy, Rhonda [address] [facility] [place] [phone] [facility] [address] [facility] [place] [address] 12/06/2024 12:15 PM EST Office Visit Cardiology, [facility] 132 [facility] [place] [address] Iliana Cortez, [address] [place] [address] 01/26/2025 11:30 AM EST Office Visit Family [facility], Rhonda Howard [address] [place] [phone] Beth Mcginnis DO [address] [place] [address] 03/31/2025 11:50 AM EDT Office Visit [facility], Rhonda Howard [address] [place] [address] Beth Mcginnis DO [address] [place] [address] 04/27/2025 1:30 PM EDT Office Visit Cardiology, [facility] 132 [facility] [place] [address] Loraine Lopez, DEBBIE [address] [place] [phone] Health Maintenance Due Date Last Done Comments [...] Power of Attor ale? No Care Teams Mechanical Detailer Relationship Specialty Start Date End Date Beth Mcginnis DO PCP - General 08/28/10 documented as of this encounter
--- OUTSIDE RECORDS SUMMARY | 2025-01-19 16:58 | External Medical Summary | Summary of Care ---
Author Name Unknown Organization [facility] Address [address] [facility] [place] [address] Phone [phone] Care Team Providers Care Plating Tank Operator Name Role Phone Beth Mcginnis Primary Care Provider Reason for Visit * Reason Onset Date Comments Referral 11/14/2024 Encounter Details Date Type Department Care Team (Late st Contact Info) Description 11/14/2024 [facility] [place] [address] Marc, [facility] Cardiology [facility] 132 [facility] [place] [address] Referral Allergies No known active allergiesdocumented as of this encounter (statuses as of 11/21/2024) Medications OMEGA-3 FATTY ACIDS 1000 MG OR [...] Warfarin Sodium 10 MG Oral Tablet (Coumadin)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 current use of anticoagulant therapy,Sustained VT (ventricular [...] as of this encounter (statuses as of 11/21/2024) Active Problems Problem Noted Date Diagnosed Date [...] implantable de fibrillator 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 or check 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 Apt scheduled. Thank you, Penny Wright Compound Mixer [facility] 11/21/2024,2:30 PM * Telephone Encounter - Maria De Jesus Rosales RPh - 11/18/2024 4:19 PM EST MTDM scheduling- please see below message and attempt to schedule pt * Telephone Encounter - Loraine Lopez CRNP - 11/18/2024 4:12 PM EST César Pretty I spoke with the patient over the [...] Maria De Jesus Rosales Pharm D Clinical [facility] Pharmacist Cardiology 11/14/2024,2:52 PM * Telephone Encounter - Penny Wright palliative care physician - 11/14/2024 2:26 PM EST Received referral for HF on 10/21. 10/26 - Att1 - spoke with , apt scheduled for 11/14. 11/09 - Pt cancelled. 11/14 - Spoke with , stating patient told her that if the doctor cannot handle the medications he does not want apt and he was stubborn and refusing apt. [facility] - please advise on what to do next. Thank you, Penny Wright Compound [employer]er [facility]) 11/14/2024,2:28 PM documented in this encounter Plan of Treatment Upcoming Encounters Date Type Department Care Team (Late st Contact Info) Description 12/05/2024 10:20 AM EST Anticoagulation Pharmacy, [address] [place] [phone] [facility] [address] [place] [address] [place] [address] 12/05/2024 10:30 AM EST Office Visit Pharmacy, [address] [place] [phone] [place] [address] [facility] [address] 12/06/2024 12:15 PM EST Office Visit Cardiology, [facility] 132 [facility] [place] [address] Iliana Cortez DO [address] [place] [address] 12/06/2024 2:00 PM EST Office Visit Cardiology, [facility] [address] [facility] [place] [address] [place] [address] 01/26/2025 11:30 AM EST Office Visit [facility] [place] [phone] Beth Mcginnis DO 226 [facility] [place] [address] 03/31/2025 11:50 AM EDT [facility] 226 [facility] [place] [phone] Beth Mcginnis, DO 226 [facility] [place] [address] 04/27/2025 1:30 PM EDT Office Visit Cardiology, [facility] 132 [facility] [place] [address] Loraine Lopez CRNP 400 [facility] [place] [address] Health Maintenance Due Date Last Done Comments DXA Scan 1945 Adult Wellness Visit 01/01/2019 01/01/2018 DIG LEVEL FOR MEDICATION MONITORING YEARLY 04/27/2024 04/27/2023, 07/03/2021 Diabetic Eye Exam 06/10/2024 06/10/2023, , 06/09/2023, Additional history exists COVID-19 Vaccine ( season) 2024 11/19/2021, 03/02/2021, 02/08/2021 Albumin/Creatinine Ratio 08/28/2024 023, 03/14/2022, 08/22/2019, Additional history exists B-12 08/28/2024 08/28/2023, 02/22, 02/27/2021, Additional history exists HbA1c 02/06/2025 08/09/2024, 041 , 11/12/2023, Additional history exists Depression Monitoring 03/30/2025 03/30/2024 GFR 09/02/2025 09/02/2024, 04, 11/12/2023, Additional history exists DTap/Tdap Vaccines (3 [...] Power of Attor ale? No Care Teams Plating Tank Operator Relationship Specialty Start Date End Date Beth Mcginnis DO PCP - General 08/28/10 documented as of this encounter
--- OUTSIDE RECORDS SUMMARY | 2025-01-19 16:58 | External Medical Summary | Summary of Care ---
Author Name Unknown Organization [facility] Address [address] [facility] [place] [address] Phone [phone] Care Team Providers Care Mechanical Equipment Test Engineer Name Role Phone Beth Mcginnis Primary Care Provider [phone] Reason for Visit * Reason Onset Date Comments Referral 11/14/2024 Encounter Details Date Type Department Care Team (Late st Contact Info) Description 11/14/2024 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 10/26 - Att1 - spoke with , apt scheduled for 11/14. 11/09 - Pt cancelled. 11/14 - Spoke with , stating patient told her that if the doctor cannot handle the medications he does not want apt and he was stubborn and refusing apt. [facility] - please advise on what to do next. Thank you, Penny Wright [employer] [facility]) 11/14/2024,2:28 PM documented in this encounter Plan of Treatment Upcoming Encounters Date Type Department Care Team (Late st Contact Info) Description 12/05/2024 10:20 AM EST [facility] [place] [phone] [facility] [address] [facility] [address] 12/05/2024 10:30 AM EST Office Visit [facility], [facility] [place] [phone] [facility] [address] [facility] [address] 12/06/2024 12:15 PM EST Office Visit Cardiology, [facility] 132 [facility] [place] [address] Iliana Cortez DO [address] [facility] [place] [phone] 01/26/2025 11:30 AM EST Office Visit Family Practice, [place] [facility] [place] [address] [place] [address] [place] [phone] Beth Mcginnis, DO [address] [facility] [address] [place] [address] 03/31/2025 11:50 AM EDT Office Visit Family Practice, Rhonda [address] [place] [phone] Beth Mcginnis, DO [address] [place] [place] [address] 04/27/2025 1:30 PM EDT Office Visit Cardiology, [facility] [address] [place] [address] Loraine Lopez CRNP [address] [facility] [place] [address] Health Maintenance Due Date Last Done Comments [...] of Attor ale? No Care Teams Mechanical Equipment Test Engineer Relationship Specialty Start Date End Date Beth Mcginnis DO PCP - General 08/28/10 documented as of this encounter
--- OUTSIDE RECORDS SUMMARY | 2025-01-19 16:58 | External Medical Summary ---
Author Name Unknown Address Unknown Organization : Laboratory Report Ordering Provider Test Date Status ARNIEMARCO 12/05/2024 10:29:37 Final Therapeutic ranges for non-o perative patients:
Prophylaxsis/treatment of DVT: (Range:2.0-3.0)
Treatment of pulmonary embolism:(Range:2.0-3.0)
Prevention of systemic embolism from:
-tissue heart valves
-acute myocardial infarction
-valvular heart disease
-atrial fibrillation
(Range: 2.0-3.0)
Mechanical prosthetic valves: (Range: 2.5-3.5) Observation Date Value Abnormality Reference (Units ) Status INR in Capillary blood by Coagulation assay 12/05/2024 10:29:37 2.0 (INR) Final Performing Location
--- OUTSIDE RECORDS SUMMARY | 2025-01-19 16:58 | External Medical Summary ---
Author Name Unknown Address Unknown Organization : Laboratory Report Ordering Provider Test Date Status ARNIEMARCO 11/11/2024 11:55:49 Final Therapeutic ranges for non-o perative patients:
Prophylaxsis/treatment of DVT: (Range:2.0-3.0)
Treatment of pulmonary embolism:(Range:2.0-3.0)
Prevention of systemic embolism from:
-tissue heart valves
-acute myocardial infarction
-valvular heart disease
-atrial fibrillation
(Range: 2.0-3.0)
Mechanical prosthetic valves: (Range: 2.5-3.5) Observation Date Value Abnormality Reference (Units ) Status INR in Capillary blood by Coagulation assay 11/11/2024 11:55:49 3.7 (INR) Final Performing Location
--- OUTSIDE RECORDS SUMMARY | 2025-01-19 16:58 | External Medical Summary | Summary of Care ---
Author Name Unknown Organization [facility] Address [address] [facility] [address] Phone [phone] Care Team Providers Care Supply Requirements Officer Name Role Phone Beth Mcginnis Primary Care Provider Reason for Visit * Reason Onset Date Comments Pacemaker Clinic 11/25/2024 Remote transmis bri Encounter Details Date Type Department Care Team (Late st Contact Info) Description 11/25/2024 Telephone Cardiology, [facility] [address] [facility] [address] Pacemaker Clinic (Remote transmission ) Allergies No known active allergiesdocumented as of this encounter (statuses as of 11/25/2024) Medications OMEGA-3 FATTY ACIDS 1000 MG OR [...] Warfarin Sodium 10 MG Oral Tablet (Coumadin)Indicati ons:correction current use of anticoagulant therapy,Sustained VT (ventricular [...] as of this encounter (statuses as of 11/25/2024) Active Problems Problem Noted Date Diagnosed Date [...] implantable de fibrillator 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 or check 02/15/2007 correction current use of anticoagulant therapy 0 08/12/2005 Ischemic cardiomyopathy documented as of this encounter (statuses as of 11/25/2024) Resolved Problems Problem Noted Date Diagnosed Date [...] as of this encounter (statuses as of 11/25/2024) Immunizations Name Administration Dates Next Due COVID-19 [...] encounter Miscellaneous Notes * Telephone Encounter - Jessica Cheema LPN - 11/25/2024 12:17 PM EST Normal Remote: With Events Normal Device Function Events or Alerts: 42 Battery: 2.98V, 5.50 yrs Sensing, impedance and thresholds reviewed Programmed parameters reviewed Presenting rhythm APBiVP Heart Rate Histograms reviewed Tachycardia: AF Stored EGMs are consistent with or suggestive of Atrial Fibrillation AT/AF [place]: 0% Total number of events: 3 Longest episode 2min 57sec Additional Notes: Warfarin Appropriate VT Therapy: Successful Stored EGMs are consistent with or suggestive of Ventricular Tachycardia Total episodes: 32 Number of ATP therapy: 2 Number of shocks delivered: 0 Tachycardia: VT Stored EGMs are consistent with or suggestive of Ventricular Tachycardia Total episodes: 32 2 episodes of VT both lasting 11 seconds both successfully treated with ATP Alert: Yellow A Yellow Alert was reported by the device: 2 episodes of VT both lasting 11 seconds both successfully treated with ATP documented in this encounter Plan of Treatment Upcoming Encounters Date Type Department Care Team (Late st Contact Info) Description 12/05/2024 10:20 AM EST Anticoagulation Pharmacy [address] [place] [phone] Rhonda [facility] [address] [place] [address] [place] [address] 12/05/2024 10:30 AM EST Office Visit Pharmacy, Rhonda [place], [place] [phone] [facility] [address] [facility] [facility], [place] [address] 12/06/2024 12:15 PM EST Office Visit Cardiology, [facility] 132 [facility] [place] [address] Iliana Cortez, [address] [place] [address] 12/06/2024 2:00 PM EST Office Visit Cardiology, [facility] 132 [facility] [place] [address] [facility] Cardiology [address] [place], [place] [address] 01/26/2025 11:30 AM EST Office Visit Family Practice, Rhonda [place] [phone] Beth Mcginnis DO [address] [place] [address] 03/31/2025 11:50 AM EDT Office Visit Family Practice, Rhonda [place], [place] [phone] Beth Mcginnis DO [address] [place], [place] [address] 04/27/2025 1:30 PM EDT Office Visit Cardiology, [facility] [address] [place] [address] Loraine Lopez, DEBBIE [address] [place] [address] Health Maintenance Due Date Last Done Comments [...] Depression Monitoring 03/30/2025 03/30/2024 GFR 09/02/2025 09/02/2024, 041 , 11/12/2023, Additional history exists DTap/Tdap Vaccines [...] Power of Attor ale? No Care Teams Supply Requirements Officer Relationship Specialty Start Date End Date Beth Mcginnis DO PCP - General 08/28/10 documented as of this encounter
--- OUTSIDE RECORDS SUMMARY | 2025-01-19 16:58 | External Medical Summary | Summary of Care ---
Author Name Unknown Organization [facility] Address [address] [facility] [address] Phone [phone] Care Team Providers Care Cork Insulator Helper Name Role Phone Beth Mcginnis Primary Care Provider [phone] Reason for Visit * Reason Comments Dosage Adjustment In Person (Anticoag Cl inic) Encounter Details Date Type Department Care Team (Latest Contact Info) Description 11/11/2024 11:50 AM EST Anticoagulation Pharmacy, [facility] [address] [place] [phone] Rhonda [facility] [address] [place] [address] Anticoagulation management encounter*; Atypical atrial flutter (HCC); Ischemic cardiomyopathy Allergies No known active allergiesdocumented as of this encounter (statuses as of 11/11/2024) Medications OMEGA-3 FATTY ACIDS 1000 MG OR [...] Sodium 10 MG Oral Tablet (Coumadin)Indicati ons:senior living current use of anticoagulant therapy,Sustained VT (ventricular [...] as of this encounter (statuses as of 11/11/2024) Active Problems Problem Noted Date Diagnosed Date [...] de fibrillator 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 or check 02/15/2007 senior living current use of anticoagulant therapy 0 08/12/2005 Ischemic cardiomyopathy documented as of this encounter (statuses as of 11/11/2024) Resolved Problems Problem Noted Date Diagnosed Date [...] as of this encounter (statuses as of 11/11/2024) Immunizations Name Administration Dates Next Due COVID-19 mRNA, LNP-s, No Pre serve, 2-Dose Series ([employer]) 11/19/2021,03/02/2021,02/08/2021 Pneumococcal Conjugate Vacc, 13 Valent (Prevnar) [...] of this encounter Progress Notes * Faye Anderson, [facility] - 11/11/2024 11:51 AM EST Images from the original note were not included. Medication Therapy Disease Management - Anticoagulation Patient: Shane Lynch | : 1945 Subjective Patient-Reported Symptoms: Patient Findings Positives: Change in alcohol use Negatives: Signs/symptoms of thrombosis, Signs/symptoms of bleeding, Change in health, Change in activity, Upcoming invasive procedure, Missed doses, Extra doses, Change in medications, Change in diet/appetite, Bruising Objective Current Warfarin Dose As of 11/11/2024 Warfarin maintenance plan: 10 mg (10 mg x 1) every Fri; 5 mg (10 mg x 0.5) all other days INR Result As of 11/11/2024 INR goal: 2.0-3.0 INR used for dosin.7 (11/11/2024) Assessment & Plan Warfarin Plan As of 11/11/2024 Full warfarin instructions: 11/11: Hold; Otherwise 10 mg every Mon; 5 mg all other days Next INR check: 12/05/2024 Repeat PT/INR in 3 week(s) Weekly dose: not changed Additional Dosing Information: Description Amiodarone 200 mg BID maintenance I spent a total of 10-19 minutes (exact time 10 mins) on the date of service in preparation, delivery, and documentation of the care provided to Shane Lynch excluding any time spent in the performance of separately billed services or time spent by another provider/QHP. Faye Anderson [facility] Clinical Pharmacist 11/11/2024, 11:51 AM documented in this encounter Plan of Treatment Upcoming Encounters Date Type Department Care Team (Late st Contact Info) Description 12/05/2024 10:20 AM EST Anticoagulation Pharmacy, [place] [address] [facility] [place] [phone] [facility] [address] [facility] [address] 12/05/2024 10:30 AM EST Office Visit Pharmacy, [place] [place] [phone] [facility] [address] [facility] [address] 12/06/2024 12:15 PM EST Office Visit Cardiology, [facility] 132 [facility] [place] [address] Iliana Cortez, [address] [place] [address] 01/26/2025 11:30 AM EST Office Visit Family Practice, [place] Rebecca [facility] [place] [phone] Beth Mcginnis DO [address] [facility] [place] [address] 03/31/2025 11:50 AM EDT Office Visit Family [facility] [place] [facility] [place] [phone] Beth Mcginnis, DO [address] [place] [address] 04/27/2025 1:30 PM EDT Office Visit Cardiology, [facility] [address] [place] [address] Loraine Lopez, DEBBIE [address] [place] [address] Health Maintenance Due Date Last Done Comments DXA Scan 1945 Adult Wellness Visit 01/01/2019 01/01/2018 DIG LEVEL FOR MEDICATION MONITORING YEARLY 04/27/2024 04/27/2023, 07/03/2021 Diabetic Eye Exam 06/10/2024 06/10/2023, , 06/09/2023, Additional history exists COVID-19 Vaccine ( season) 2024 11/19/2021, 03/02/2021, 02/08/2021 Albumin/Creatinine Ratio 08/28/2024 023, 03/14/2022, 08/22/2019, Additional history exists B-12 08/28/2024 08/28/2023, 042 12/2021, 02/27/2021, Additional history exists HbA1c 02/06/2025 08/09/2024, 041 , 11/12/2023, Additional history exists Depression Monitoring 03/30/2025 03/30/2024 GFR 09/02/2025 09/02/2024, 1 , 11/12/2023, Additional history exists DTap/Tdap Vaccines (3 - Td or Tdap) 02/12/2028 02/11/2018, 03/27/2006, 11/23/1995 Pneumococcal Vaccine: 65+ Years Completed 11/19/2018, 03/12/2016, 01/29/2007 Diabetic Foot [...] Comments INR FINGERSTICK, POINT OF CARE STAT 11/11/2024 11:55 AM EST Atypical atrial flutter (HCC) Ischemic cardiomyopathy Anticoagulation management encounter documented in this encounter Results * INR FINGERSTICK, POINT OF CARE (11/11/2024 11:55 AM EST) Fingerstick INR 3.7 INR 1:24 PM EST [facility] Blood 11/11/2024 11:5 5 AM EST 11/11/2024 1:24 PM EST Narrative [facility] - 11/11/2024 1:24 PM EST Therapeutic ranges for non-operative patients: Prophylaxsis/treatment of DVT: (Range:2.0-3.0) Treatment of pulmonary embolism:(Range:2.0-3.0) Prevention of systemic embolism from: -tissue heart valves -acute myocardial infarction -valvular heart disease -atrial fibrillation (Range: 2.0-3.0) Mechanical prosthetic valves: (Range: 2.5-3.5) us Faye Anderson [facility] LAB POINT OF CARE TEST DOCKED DEVICE UNSOLICITED RESULTS Final Result LABORATORY [facility] 56-01 [address] [facility] [place] [address], [facility] documented in this encounter Visit Diagnoses Diagnosis [...] Power of Attor ale? No Care Teams Cork Insulator Helper Relationship Specialty Start Date End Date Beth Mcginnis DO PCP - General 08/28/10 documented as of this encounter"
--- OUTSIDE RECORDS SUMMARY | 2025-01-19 16:58 | External Medical Summary | Summary of Care ---
Author Name Unknown Organization [facility] Address [address] [facility] [place] [address] Phone [phone] Care Team Providers Care Paste Up Artist Apprentice Name Role Phone Beth Mcginnis DO Primary Care Provider [phone] Reason for Visit * Reason Comments Follow Up Pt states that he is here for a follow up for his legs Encounter Details Date Type Department Care Team (Late st Contact Info) Description 11/11/2024 12:50 PM EST [facility] [address] [facility] [phone] Beth Mcginnis DO 226 [place] [address] Type 2 diabetes mellitus with hemoglobin A1c goal of less than 8.0% ([facility])*; Infected abrasion of left lower extremity, subsequent encounter Allergies No known active allergiesdocumented as of [...] Sodium 10 MG Oral Tablet (Coumadin)Indicati ons: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 treater helper current use of anticoagulant therapy,Sustained VT [...] 12/01/2019 Low back pain with right-sided sciatica 07/02/20 18 Moderate recurrent major depression 02/11/2018 Mild [...] implantable de fibrillator 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 or check 02/15/2007 long-term current use of anticoagulant therapy 0 08/12/2005 [...] mRNA, LNP-s, No Pre serve, 2-Dose Series ([employer]) 11/19/2021,03/02/2021,02/08/2021 Pneumococcal Conjugate Vacc, 13 Valent (Prevnar) [...] Smoke Exposure: Past Smokeless Tobacco: Current Snuff Tobacco Cessation:Ready to Q uit: Not Asked; Counseling Given: Not Answered Comments:previous smoker up to 5 PPD for [...] Sign Reading Time Taken Comments Blood Pressure 97/57 11/11/2024 12:14 PM EST Pulse 88 11/11/2024 12:14 PM EST Temperature 36.7 C (98 F) 11/11/2024 12:14 PM EST Respiratory Rate 16 11/11/2024 12:14 PM EST Oxygen Saturation 95% 11/11/2024 12:14 PM EST Inhaled Oxygen Concentration - - Weight 82.6 kg (182 lb 1.6 oz) 11/11/2024 12:14 PM EST Height 180.3 cm (5' 11") 11/11/2024 12:14 PM EST Body Mass Index 25.4 11/11/2024 12:14 PM EST documented in this encounter Progress Notes * Beth Mcginnis, - 11/11/2024 12:37 PM EST Subjective: Shane Lynch is a 79 year old male. Chief Complaint Patient presents with Follow Up Pt states that he is here for a follow up for his legs HPI: Shane presents today for a quick return on his L lower leg, see previous notes, he had run into a tractor. Grew out staph, and completed antibiotics, and on MY G he told me that the leg was taking longer to heal. Today the leg is better. Still some swelling. His on high dose diuretics with a low BP. Will keep meds the same. He is seeing EP in Nov. On chronic amiodarone. He did have an episode where he fainted pulling a large bag of pellets from his wood stove. But had transient LOC. Suggested to have someone around when he is doing that. He did fall backwards and bruise ribs. No head trauma. Still not sleeping well. Took off trazodone due to increase risk of falls. Naps during the day. All meds were reviewed. 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 ([facility]) Moderate recurrent major depression ([facility]) Low back pain with right-sided sciatica Type 2 diabetes mellitus with diabetic nephropathy, with long-term current use of insulin ([facility]) HTN, goal below 130/80 ASCVD (arteriosclerotic cardiovascular disease) Bradycardia, sinus LBBB (left bundle branch block) Chronic heart failure with reduced ejection fraction and diastolic dysfunction ([facility]) Atypical atrial flutter ([facility]) S/P atrioventricular emely ablation Current Outpatient Medications Medication Sig Dispense Refill OMEGA-3 FATTY ACIDS 1000 MG OR CAPS 2-3 per day 0 ASPIRIN 81 MG PO CHEW take one tablet daily 100 Tab 3 LANCETS MISC test blood sugars 3-4 times daily 2 Box 3 Multiple Vitamins-Minerals (PRESERVISION AREDS 2) Capsule Take 1 Capsule by mouth in the morning and 1 Capsule before bedtime. CPAP every night at bedtime. FreeStyle Judith 2 Sensor Use as directed . Change every 14 days 6 Each 3 traMADol HCl 50 MG Oral Tablet (Ultram) TAKE 1 TABLET BY MOUTH EVERY 8 HOURS NEEDED FOR SEVERE PAIN 30 Tablet 0 Ozempic (1 MG/DOSE) 4 MG/3ML Subcutaneous Solution Pen-injector (Semaglutide (1 MG/DOSE)) Through PAP Tresiba FlexTouch 100 UNIT/ML Subcutaneous Solution Pen-injector (Insulin Degludec) Inject 10 Unitsunder the skin in the morning. Obtaining from PAP. Farxiga 10 MG Oral Tablet (Dapagliflozin Propanediol) Take 1 Tablet by mouth in the morning. Obtaining from PAP until 11/22/2024. NovoLOG FlexPen 100 UNIT/ML Subcutaneous Solution Pen-injector (insulin aspart) Inject under the skin 3 units with breakfast, 7 units with lunch, and 5 units with dinner Metoprolol Succinate ER 25 MG Oral Tablet Extended Release 24 Hour (toPROL XL) Take 1 Tablet by mouth in the morning. 90 Tablet 5 metFORMIN HCl 1000 MG Oral [...] 1 TABLET EVERY DAY 90 Tablet 3 Nitroglycerin 0.4 MG Sublingual Tablet Sublingual (Nitrostat) Place 1 Tablet under the tongue every5 minutes as needed for Pain, Chest. Max dose 3 tablets in 15 minutes (Patient not taking: Reportedon 11/11/2024) 25 Tablet 5 No current facility-administered medications for this visit. Review of patient's allergies indicates: No Known Allergies Objective: BP 97/57 | Pulse 88 | Temp 98 F (36.7 C) (Tympanic) | Resp 16 | Ht 5' 11" (1.803 m) | Wt 182 lb1.6 oz (82.6 kg) | SpO2 95% | BMI 25.40 kg/m | BSA 2.03 m Physical Exam: General: alert, healthy, and no distress Heart: regular rate & rhythm, no murmur, and no gallops Lungs: chest symmetric with normal AP diameter, no chest deformities noted, no chest wall tenderness, lungs clear to auscultation Extremities: slight edema in the L leg. No open areas and no infections. ASSESSMENT/PLAN: Type 2 diabetes mellitus with hemoglobin A1c goal of less than 8.0% ([facility]) (Primary) Stable. Infected abrasion of left lower extremity, subsequent encounter Healed. Check-out note: Use a sick visit on a 20 min ok in January. Beth Mcginnis DO documented in this encounter Nursing Notes * Penny Katz LPN - 11/11/2024 12:14 PM EST Shane Lynch is a 79 year old male who presents today for Chief Complaint Patient presents with Follow Up Pt states that he is here for a follow up for his legs documented in this encounter Plan of Treatment Upcoming Encounters Date Type Department Care Team (Late st Contact Info) Description 12/05/2024 10:20 AM EST [facility]tico[facility] Pharmacy, [facility]onda Duran [facility] [place] [phone] Rhonda [facility] [address] [facility] [place] [address] 12/05/2024 10:30 AM EST Office Visit Pharmacy, [address] 226 [facility] [place] [phone] Rhonda [facility] [address] [facility] [place] [address] 12/06/2024 12:15 PM EST Office Visit Cardiology, [address] [place] [address] Iliana Cortez DO [address] [place] [address] 01/26/2025 11:30 AM EST Office Visit Family Practice, Rhonda Howard [address] [place] [phone] Beth Mcginnis, DO [address] [place] [address] 03/31/2025 11:50 AM EDT Office Visit [facility], Rhonda Howard [address] [place] [phone] Beth Mcginnis, DO [address] [place] [address] 04/27/2025 1:30 PM EDT Office Visit Cardiology, [facility] 132 Jacque Lee [facility] [place] [address] Loraine Lopez, DEBBIE [address] [place] [phone] Health Maintenance Due Date Last Done Comments [...] as of this encounter Visit Diagnoses Diagnosis Type 2 diabetes mellitus with hemoglobin A1c goal of less than 8.0% (HCC)- Primary Infected abrasion of left lower extremity, subsequent encounter documented in this encounter Advance Directives * [...] Power of Attor ale? No Care Teams Paste Up Artist Apprentice Relationship Specialty Start Date End Date Beth Mcginnis DO PCP - General 08/28/10 documented as of this encounter
--- OUTSIDE RECORDS SUMMARY | 2025-01-19 16:58 | External Medical Summary | Summary of Care ---
Author Name Unknown Organization [facility] Address [address] [facility] [address] Phone [phone] Care Team Providers Care Individual Pension Adviser Name Role Phone Beth Mcginnis Primary Care Provider Reason for Visit * Reason Onset Date Comments Pacemaker Clinic 11/25/2024 Remote transmis bri Encounter Details Date Type Department Care Team (Late st Contact Info) Description 11/25/2024 Telephone Cardiology, [facility] 132 [facility] [address] [facility] 132 [facility] [address] Pacemaker Clinic (Remote transmission ) Allergies No [...] Warfarin Sodium 10 MG Oral Tablet (Coumadin)Indicati ons:snf current use of anticoagulant therapy,Sustained VT (ventricular [...] implantable de fibrillator 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 or check 02/15/2007 snf current use of anticoagulant therapy 0 08/12/2005 [...] mRNA, LNP-s, No Pre serve, 2-Dose Series ([employer]) 11/19/2021,03/02/2021,02/08/2021 Diptheria/Tetanus (Adult) 11/23/1995 Pneumococcal Conjugate Vacc, [...] Telephone Encounter - Ekaterina Donahue CRNP - 11/25/2024 4:14 PM EST Noted. This in consistent with patient's long standing history. He is scheduled to see EP in the next 1-2 weeks. Very important that he keeps that appt. Thank you, Ekaterina * Telephone Encounter - Jessica Cheema LPN - 11/25/2024 12:17 PM EST Normal Remote: With Events Normal Device Function Events or Alerts: 42 Battery: 2.98V, 5.50 yrs Sensing, impedance and thresholds reviewed Programmed parameters reviewed Presenting rhythm APBiVP Heart Rate Histograms reviewed Tachycardia: AF Stored EGMs are consistent with or suggestive of Atrial Fibrillation AT/AF [place]: 0% Total number of events: 3 Longest [...] AM EST Anticoagulation Pharmacy, Rhonda [address] [facility] [phone] [place] [address] [facility] [address] 12/05/2024 10:30 AM EST [facility] [place] [phone] [place] [address] [address] [facility] [address] 12/06/2024 12:15 PM EST Office Visit Cardiology, [facility] [address] [facility] [place] [address] Iliana Cortez, [address] [place] [address] 12/06/2024 2:00 PM EST Office Visit Cardiology, [facility] [address] [facility] [place] [address] [facility] Cardiology [facility] [address] [facility] [place] [address] 01/26/2025 11:30 AM EST Office Visit Family Practice, [facility] [place] [phone] Beth Mcginnis DO 226 [facility] Renee [place] [address] 03/31/2025 11:50 AM EDT Office Visit Family Practice, [place] Am[address] Howard [address] Carol[address] [place] [phone] Beth Mcginnis DO [address] [place] [place] [address] 04/27/2025 1:30 PM EDT Office Visit Cardiology, [facility] [address] [facility] [place] [address] Loraine Lopez, DEBBIE 400 [facility] [place] [address] Health Maintenance Due Date Last Done [...] Power of Attor ale? No Care Teams Individual Pension Adviser Relationship Specialty Start Date End Date Beth Mcginnis DO PCP - General 08/28/10 documented as of this encounter
--- OUTSIDE RECORDS SUMMARY | 2025-01-19 16:58 | External Medical Summary | Summary of Care ---
Author Name Unknown Organization [facility] Address [address] [facility] [address] Phone [phone] Care Team Providers Care Spool Carrier Name Role Phone Beth Mcginnis Primary Care Provider [phone] Reason for Visit * Reason Comments Dosage Adjustment In Person (Anticoag Cl inic) Diabetes Follow-Up Encounter Details Date Type Department Care Team (Late st Contact Info) Description 12/05/2024 10:30 AM EST Office [facility], [place] [facility] [place] [address] Rhonda [facility] [address] [place] [address] Type 2 diabetes mellitus with hemoglobin A1c goal of less than 8.0% ([facility]; Type 2 diabetes mellitus with diabetic nephropathy, with long-term current use of insulin (HCC); Encounter for long-term (current) use of medications Allergies No known active allergiesdocumented as of [...] Sodium 10 MG Oral Tablet (Coumadin)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 Medication Therapy Disease Management Clinic - Diabetes Management Progress Note Shane Lynch, identified by name and date of , is a 79 year old male being seen for diabetesmanagement/education. Patient presents for return diabetic visit. DIABETES: Current diabetic medications: Metformin 1000mg twice a day Farxiga 10 mg daily Ozempic 2 mg weekly on Fridays Tresiba 10 units daily Novolog 7 units with breakfast, 7 units with lunch, 7 units with dinner GFR 77 as of 03/02/24 Medication Injection Site: Abdomen Lifestyle: Diet: unchanged Glucose Review/SMBG: Readings obtained from patient device Hypoglycemia: Does your blood sugar go below 70 mg/dL? Yes, Hyperglycemia symptoms present: none Recent Labs Units 08/09/24 1048 03/02/24 1345 11/12/23 1028 HEMOGLOBIN A1C - [facility] % 6.9* 7.6* 8.9* Recent Labs Units 09/02/24 1110 03/02/24 1345 11/12/23 1028 ESTIMATED GLOMERULAR FILTRATION RATE - [facility] mL/min 86 77 69 CREATININE - [facility] mg/dL 0.9 1.0 1.1 HYPERTENSION: Patient on ACEi/ARB: yes BP Readings from Last 3 Encounters: 11/11/24 97/57 10/21/24 102/58 09/26/24 98/50 Blood pressure at goal: yes HYPERLIPIDEMIA: Recent Labs Units 08/28/23 0839 03/20/23 1147 12/22/22 1256 LDL CHOLESTEROL (CALCULATED) - [facility] mg/dL 54 51 52 Does patient have clinical ASCVD? Yes, is patient LDL less than 55 mg/dL? Yes HEALTH MAINTENANCE REVIEW: Health Maintenance Due Topic Date Due DXA Scan Never done Adult Wellness Visit 01/01/2019 DIG LEVEL FOR MEDICATION MONITORING YEARLY 04/27/2024 Diabetic Eye Exam 06/10/2024 COVID-19 Vaccine ( season) 2024 Albumin/Creatinine Ratio 08/28/2024 B-12 08/28/2024 ASSESSMENT & PLAN: ICD-10-CM 1. Type 2 diabetes mellitus with hemoglobin A1c goal of less than 8.0% ([facility]) E11.9 2. Type 2 diabetes mellitus with diabetic nephropathy, with long-term current use of insulin ([facility]) E11.21 Z79.4 Considerations: - has PACE - uses NovoNordisk for Ozempic + Tresiba- re-applied 09/08/24 - [place] & [place] PAP for farxiga - renal function - judith 2 supplied by [email or web address] BG Readings - Blood sugars controlled. TIR 89% with a few low blood sugars occurring overnight. Medications - Reviewed current regimen, patient is adherent to regimen. Will decrease his tresiba slightly to reduce the overnight lows. Diet, Exercise, Lifestyle - No significant lifestyle changes since last visit. Discussed with patient. Patient is agreeable to SMBG with freestyle judith 2 time(s) daily. Patient aware to contact clinic if any hypoglycemia before next visit. MEDICATION CHANGES: Diabetic Medications: Metformin 1000mg twice a day Farxiga 10 mg daily Ozempic 2 mg weekly on Fridays DECTresiba 8 units daily Novolog 7 units with breakfast, 7 units with lunch, 7 units with dinner GFR 86 as of 09/02/24 HEALTH MAINTENANCE INTERVENTIONS: Labs: Up to Date Immunizations: Up to Date Foot Exam: Up to Date Eye Exam: due Annual Wellness Visit: due FOLLOW UP: Return to clinic in 12 weeks I spent a total of 30-39 minutes (exact time 30 mins) on the date of service in preparation, delivery, and documentation of the care provided to Shane Lynch excluding any time spent in the performance of separately billed services. Faye Anderson [facility] Clinical Pharmacist - Care Trainer Medication Therapy Management Clinic 12/05/2024, 10:22 AM documented in this encounter Plan of Treatment Upcoming Encounters Date Type Department Care Team (Late st Contact Info) Description 12/06/2024 12:15 PM EST Office Visit Cardiology, [facility] 132 [facility] [place] [address] Iliana Cortez, [address] [place] [address] 12/06/2024 2:00 PM EST Office Visit Cardiology, [facility] 132 [facility] [place] [address] [facility] [address] [place] [address] 01/26/2025 11:20 AM EST Anticoagulation Pharmacy, [place] [address] [phone] [place], [facility] [address] [place], [place] [address]J[place] [address] 01/26/2025 11:30 AM EST Office Visit Family Practice, Rhonda Howard [facility] [place] [phone] Beth Mcginnis DO 226 [facility] [place] [address] 02/28/2025 10:30 AM EDT Anticoagulation Pharmacy, Rhonda Duran [address] [facility] [place] [phone] [facility] [address] [facility] [address] 02/28/2025 10:40 AM EDT Office Visit Pharmacy, Rhonda Duran 226 [facility] [place] [phone] [facility] [address] [facility] [address] 03/31/2025 11:50 AM EDT Office Visit Family Practice, [place] [address]JOHN [phone] Beth Mcginnis, 226 [facility] [address] 04/27/2025 1:30 PM EDT Office Visit Cardiology, [facility] 132 [facility] [place] [address] Loraine Lopez, DEBBIE [address] [place] [address] [place] [phone] Scheduled Orders Name Type Priority Associated Diagnoses Orde r Schedule ALBUMIN / CREATININE RATIO, URINE Lab Routine Type 2 diabetes mellitus with hemoglobin A1c goal of less than 8.0% (HCC) Type 2 diabetes mellitus with diabetic nephropathy, with long-term current use of insulin (HCC) Expected: 12/12/2024 (Approximate), Expires: 12/05/2025 VITAMIN B12 Lab Routine Encounter for long-term (current) use of medications Expected: 12/12/2024 (Approximate), Expires: 12/05/2025 Health Maintenance Due Date Last Done Comments [...] goal of less than 8.0% (HCC)- Primary Type 2 diabetes mellitus with diabetic nephropathy, with long-term current use of insulin (HCC) Encounter for long-term (current) use of medications Encounter for long-term (current) use of other medications documented in this encounter Advance Directives * [...] Power of Attor ale? No Care Teams Spool Carrier Relationship Specialty Start Date End Date Beth Mcginnis DO PCP - General 08/28/10 documented as of this encounter
--- OUTSIDE RECORDS SUMMARY | 2025-01-19 16:58 | External Medical Summary | Summary of Care ---
Author Name Unknown Organization [facility] Address [address] [facility] [place] [address] Phone [phone] Care Team Providers Care Die Engraving Supervisor Name Role Phone Beth Mcginnis Primary Care Provider Reason for Visit * Reason Onset Date Comments Referral 11/14/2024 Encounter Details Date Type Department Care Team (Late st Contact Info) Description 11/14/2024 [facility] [place] [address] Marc, [facility] Cardiology [facility] 132 [facility] [place] [address] Referral Allergies No known active allergiesdocumented as of this encounter (statuses as of 11/14/2024) Medications OMEGA-3 FATTY ACIDS 1000 MG OR [...] Warfarin Sodium 10 MG Oral Tablet (Coumadin)Indicati ons:rn long term care current use of anticoagulant therapy,Sustained VT [...] as of this encounter (statuses as of 11/14/2024) Active Problems Problem Noted Date Diagnosed Date [...] implantable de fibrillator 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 or check 02/15/2007 rn long term care current use of anticoagulant therapy 0 08/12/2005 Ischemic cardiomyopathy documented as of this encounter (statuses as of 11/14/2024) Resolved Problems Problem Noted Date Diagnosed Date [...] as of this encounter (statuses as of 11/14/2024) Immunizations Name Administration Dates Next Due COVID-19 mRNA, LNP-s, No Pre serve, 2-Dose Series ([employer]) 11/19/2021,03/02/2021,02/08/2021 Pneumococcal Conjugate Vacc, 13 Valent (Prevnar) [...] Maria De Jesus Rosales Pharm D Clinical [facility] Pharmacist Cardiology 11/14/2024,2:52 PM * Telephone Encounter - Penny Wright case management coordinator - 11/14/2024 2:26 PM EST Received referral for HF on 10/21. 10/26 - Att1 - spoke with , apt scheduled for 11/14. 11/09 - Pt cancelled. 11/14 - Spoke with , stating patient told her that if the doctor cannot handle the medications he does not want apt and he was stubborn and refusing apt. [facility] - please advise on what to do next. Thank you, Penny Wright Fruit Thinner Machine Operator [facility] 11/14/2024,2:28 PM documented in this encounter Plan of Treatment Upcoming Encounters Date Type Department Care Team (Late st Contact Info) Description 12/05/2024 10:20 AM EST Anticoagulation Pharmacy, Rhonda [place], [place] [phone] [facility] [address] [facility] [place] [address] 12/05/2024 10:30 AM EST Office Visit Pharmacy, Rhonda [place], [place] [phone] [facility] [address] [facility] [place] [address] 12/06/2024 12:15 PM EST Office Visit Cardiology, [facility] 132 [facility] [place] [address] Iliana Cortez, DO 400 [place] [address] 01/26/2025 11:30 AM EST Office Visit Family Practice, Rhonda [place], [place] [phone] Beth Mcginnis DO [address] [place] [address] 03/31/2025 11:50 AM EDT Office Visit Family Practice, Rhonda [place] [phone] Beth Mcginnis DO [address] [place] [address] 04/27/2025 1:30 PM EDT Office Visit Cardiology, [facility] 132 [place] [address] Loraine Lopez, DEBBIE [address] [place] [address] Health Maintenance Due Date [...] Power of Attor ale? No Care Teams Die Engraving Supervisor Relationship Specialty Start Date End Date Beth Mcginnis DO PCP - General 08/28/10 documented as of this encounter
--- OUTSIDE RECORDS SUMMARY | 2025-01-19 16:59 | External Medical Summary | Summary of Care ---
Author Name Unknown Organization [facility] Address [address] [facility] [address] Phone [phone] Care Team Providers Care Woodyard Operator Name Role Phone Beth Mcginnis Primary Care Provider Reason for Visit * Reason Comments Dosage Adjustment In Person (Anticoag Cl inic) Encounter Details Date Type Department Care Team (Latest Contact Info) Description 10/13/2024 2:50 PM EST Anticoagulation Pharmacy, [place] [address] [place] [address] [facility] [address] [place] [address] Anticoagulation management encounter*; Atypical atrial flutter (HCC); Ischemic cardiomyopathy Allergies No known active allergiesdocumented as of this encounter (statuses as of 10/13/2024) Medications OMEGA-3 FATTY ACIDS 1000 MG OR CAPSIndications: CVD (arteriosclerotic cardiovascular disease) 2-3 per day 0 3 Active ASPIRIN 81 MG PO CHEWIndications:Is chemic cardiomyopathy,DM type 2, goal A1c below 7 take one tablet daily 100 Tab 3 1 Active LANCETS MISCIndications:DM type 2, goal A1c below 7 test blood sugars 3-4 times daily 2 Box 3 3 Active Multiple Vitamins-Minerals (PRESERVISION AREDS 2) Capsule Take 1 Capsule by mouth in the morning and 1 Capsule before bedtime. 0 Active CPAP every night at bedtime. Active FreeStyle Judith 2 Sensor Use as directed . Change every 14 days 6 Each 3 2 Active traMADol HCl 50 MG Oral Tablet (Ultram)Indication s:Left leg cellulitis TAKE 1 TABLET BY MOUTH EVERY 8 HOURS NEEDED FOR SEVERE PAIN 30 Tablet 3 Active Ozempic (1 MG/DOSE) 4 MG/3ML Subcutaneous Solution Pen-injector (Semaglutide (1 MG/DOSE)) Through PAP 3 Active Tresiba FlexTouch 100 UNIT/ML Subcutaneous Solution [...] mouth in the morning. 90 Tablet 5 3 Active Lisinopril 2.5 MG Oral Tablet (Prinivil)Indicati ons:Ischemic cardiomyopathy TAKE 1 TABLET EVERY DAY 90 Tablet 3 4 Active Nitroglycerin 0.4 MG Sublingual Tablet Sublingual (Nitrostat)Indicat ions:ASCVD (arteriosclerotic cardiovascular disease) Place 1 Tablet under the tongue every 5 minutes as needed for Pain, Chest. Max dose 3 tablets in 15 minutes 25 Tablet 5 4 Active metFORMIN HCl 1000 MG Oral Tablet (Glucophage) TAKE 1 TABLET TWICE DAILY 180 Tablet 1 4 Active Finasteride 5 MG Oral Tablet (Proscar)Indicatio ns:Nodular prostate with urinary obstruction TAKE 1 TABLET EVERY DAY 90 Tablet 1 4 Active Warfarin Sodium 10 MG Oral Tablet (Coumadin)Indicati ons:half-way current use of anticoagulant therapy,Sustained VT (ventricular tachycardia) (HCC) TAKE 1/2 TO 1 TABLET DAILY INSTRUCTED BY THE COUMADIN CLINIC 90 Tablet 3 4 Active traZODone HCl 50 MG Oral Tablet (Desyrel)Indicatio ns:Primary insomnia TAKE 1 TABLET AT BEDTIME 90 Tablet 1 4 Active Amiodarone HCl 200 MG Oral Tablet (Cordarone)Indicat ions:Ventricular tachycardia (HCC) TAKE 1 TABLET IN THE MORNING AND TAKE 1 TABLET BEFORE BEDTIME 180 Tablet 3 4 Active Atorvastatin Calcium 80 MG Oral Tablet (Lipitor)Indicatio ns:Elevated LFTs,Dyslipidemia, goal LDL below 70 TAKE 1 TABLET EVERY DAY 90 Tablet 3 4 Active Digoxin 125 MCG Oral Tablet (Lanoxin)Indicatio ns:Ischemic cardiomyopathy,Hea rt failure, systolic, due to CAD (HCC) Take 1 Tablet by mouth once a day on Thursday, Thursday, and Thursday only. 40 Tablet 3 4 Active Sertraline HCl 25 MG Oral Tablet (Zoloft)Indication s:Mild depression Take 1 Tablet by mouth in the morning. Take with 50mg.. 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 0 08/12/2005 Ischemic cardiomyopathy documented as of this encounter (statuses as of 10/13/2024) Resolved Problems Problem Noted Date Diagnosed Date [...] as of this encounter (statuses as of 10/13/2024) Immunizations Name Administration Dates Next Due COVID-19 mRNA, LNP-s, No Pre serve, 2-Dose Series (Snaapiq) 11/19/2021,03/02/2021,02/08/2021 Pneumococcal Conjugate Vacc, 13 Valent (Prevnar) [...] Progress Notes * Faye Anderson RPh - 10/13/2024 2:46 PM EST Medication Therapy Disease Management - Anticoagulation Patient: Shane Lynch | : 1945 Subjective Patient-Reported Symptoms: Patient Findings Positives: Change in medications (Bactrim DS BID x 10 days The following dose was followed while patient is taking bactrim: 0 mg Mondays, 5 mg all other days. This wass a 25% reduction.) Negatives: Signs/symptoms of thrombosis, Signs/symptoms of bleeding, Change in health, Change in alcohol use, Change in activity, Upcoming invasive procedure, Missed doses, Extra doses, Change in diet/appetite, Bruising Objective Current Warfarin Dose As of 10/13/2024 Warfarin maintenance plan: 10 mg (10 mg x 1) every Thu; 5 mg (10 mg x 0.5) all other days INR Result As of 10/13/2024 INR goal: 2.0-3.0 INR used for dosin.3 (10/13/2024) Assessment & Plan Warfarin Plan As of 10/13/2024 Full warfarin instructions: 10 mg every Fri; 5 mg all other days No change documented: Faye Anderson RPh Next INR check: 11/11/2024 Repeat PT/INR in 4 week(s) Weekly dose: not changed Additional Dosing Information: Description Amiodarone 200 mg BID maintenance I spent a total of 10-19 minutes (exact time 10 mins) on the date of service in preparation, delivery, and documentation of the care provided to Shane Lynch excluding any time spent in the performance of separately billed services or time spent by another provider/QHP. Faye Anderson [facility] Clinical Pharmacist 10/13/2024, 2:46 PM documented in this encounter Plan of Treatment Upcoming Encounters Date Type Department Care Team (Late st Contact Info) Description 10/21/2024 1:00 PM EST Office Visit Cardiology, [address] [place] [address] Loraine Lopez CRNP [address] [facility] [place] [address] 11/11/2024 11:50 AM EST [facility], [place] [address] [facility] [address] [facility] [address] [facility] [place] [address] 11/11/2024 12:50 PM EST Office Visit Family Practice, [facility] [address] [place] [phone] Beth Mcginnis DO [address] [facility] [address] 12/05/2024 10:30 AM EST Office Visit Pharmacy, [place] [address] [facility] [address] [facility] [address] [facility] [address] 12/06/2024 12:15 PM EST Office Visit Cardiology, [facility] [address] [facility] [place] [address] Iliana Cortez, DO [address] [place] [address] 03/31/2025 11:50 AM EDT [facility] [place] [phone] Beth Mcginnis, DO [address] [facility] [place] [address] Health Maintenance Due Date Last Done Comments DXA Scan 1945 Adult Wellness Visit 01/01/2019 01/01/2018 DIG LEVEL FOR MEDICATION MONITORING YEARLY 04/27/2024 04/27/2023, 07/03/2021 COVID-19 Vaccine ( season) 2024 11/19/2021, 03/02/2021, 02/08/2021 Albumin/Creatinine Ratio 08/28/2024 023, 03/14/2022, 08/22/2019, Additional history exists B-12 08/28/2024 08/28/2023, 02/22, 02/27/2021, Additional history exists Diabetic Eye Exam 10/29/2024 06/10/2023, , 06/09/2023, Additional history exists Postponed from 06/10/2024 (Patient Declined After Education) HbA1c 02/06/2025 08/09/2024, 02/21, 11/12/2023, Additional history [...] Comments INR FINGERSTICK, POINT OF CARE STAT 10/13/2024 2:51 PM EST Atypical atrial flutter (HCC) Ischemic cardiomyopathy Anticoagulation management encounter documented in this encounter Results * INR FINGERSTICK, POINT OF CARE (10/13/2024 2:51 PM EST) Fingerstick INR 2.3 INR 4 2:52 PM EST LABORATORY [place] 56-01 Blood 10/13/2024 2:51 PM EST 10/13/2024 2:52 PM EST Located Within [facility] - 10/13/2024 2:52 PM EST Therapeutic ranges for non-operative patients: Prophylaxsis/treatment of DVT: (Range:2.0-3.0) Treatment of pulmonary embolism:(Range:2.0-3.0) Prevention of systemic embolism from: -tissue heart valves -acute myocardial infarction -valvular heart disease -atrial fibrillation (Range: 2.0-3.0) Mechanical prosthetic valves: (Range: 2.5-3.5) us Faye Anderson [facility] LAB POINT OF CARE TEST DOCKED DEVICE UNSOLICITED RESULTS Final Result [facility] [address] [place] [address] [facility] [address] [place], [place] [address] documented in this encounter Visit Diagnoses Diagnosis Anticoagulation management encounter- Primary Encounter for therapeutic drug monitoring Atypical atrial flutter (HCC) Atrial flutter Ischemic cardiomyopathy Other specified forms of chronic ischemic heart disease documented in this encounter Advance Directives * Full Code (Latest Code Status on File) Date Activated Date Inactivated Comments 03/25/2021 2:23 PM 03/25/2021 8:49 PM This order re flects the patients wishes and were consensually agreed upon. Question Answer Comments Discussion of Advance Directives occurred with: Not Discussed Does the patient have a Living Will? No Does the patient have Health Care Power of Attor ale? No Care Teams Woodyard Operator Relationship Specialty Start Date End Date Beth Mcginnis DO [address] [place] [address] PCP - General 08/28/10 documented as of this encounter"
--- OUTSIDE RECORDS SUMMARY | 2025-01-19 16:59 | External Medical Summary | Summary of Care ---
Author Name Unknown Organization [facility] Address [address] [facility] [address] Phone [phone] Care Team Providers Care Retail Client Manager Name Role Phone Beth Mcginnis Primary Care Provider Reason for Visit * Reason Comments eRx-Medication Refill Encounter Details Date Type Department Care Team (Late st Contact Info) Description 10/27/2024 Refill Cardiology, [facility] [address] [place] [address] Ekaterina Donahue CRNP [address] [place] [address] Ischemic cardiomyopathy Allergies No known active allergiesdocumented as of this encounter (statuses as of 10/27/2024) Medications OMEGA-3 FATTY ACIDS 1000 MG OR [...] 15 minutes 25 Tablet 5 024 Active Additional Information Patient not taking.Reported on 10/21/2024 metFORMIN HCl 1000 MG Oral Tablet (Glucophage) TAKE 1 TABLET TWICE DAILY 180 Tablet 1 024 Active Finasteride 5 MG Oral Tablet (Proscar)Indicati ons:Nodular prostate with urinary obstruction TAKE 1 TABLET EVERY DAY 90 Tablet 1 024 Active Warfarin Sodium 10 MG Oral Tablet (Coumadin)Indicat ions:senior care current use of anticoagulant therapy,Sustained VT [...] 0.5 Tablets by mouth in the morning. 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 - 10/27/2024 5:20 PM ESTSigned Prescriptions: Disp Refills Lisinopril 2.5 MG Oral Tablet (Prinivil) 90 Tab*3 Sig: TAKE 1 TABLET EVERY DAYAuthorizing Provider: MARVIN LOPEZ User: JESSA HIRSCH-------- Electronically signed by [facility] at 10/27/2024 5:20 PM EST documented in this encounter Plan of Treatment Upcoming Encounters Date Type Department Care Team (Late st Contact Info) Description 11/11/2024 11:50 AM EST Anticoagulation Pharmacy, [address] [place] [phone] [place] [id number] [facility] [place] [address] 11/11/2024 12:50 PM EST Office Visit Family Practice, [facility] [facility] [address] [place] [phone] Beth Mcginnis, DO [address] [place] [address] 11/14/2024 10:00 AM EST Office Visit Cardiology, [facility] 132 [facility] [place], [place] [address] [place], [place] [address] 12/05/2024 10:30 AM EST [facility] [place], [place] [phone] [address], [place] [address] 12/06/2024 12:15 PM EST Office Visit Cardiology, [facility] 132 [facility] [place], [place] [address] Iliana Cortez, DO [address] [place] [address] 03/31/2025 11:50 AM EDT Office Visit Family Practice, [place], [place] [phone] Beth Mcginnis, DO [address] [place], [place] [address] 04/27/2025 1:30 PM EDT Office Visit Cardiology, [facility] 132 [facility] [place] [address] Marvin Lopez, DEBBIE [address] [place] [address] Health Maintenance Due Date Last Done Comments [...] (Patient Declined After Education) HbA1c 02/06/2025 08/09/2024, 041 , 11/12/2023, Additional [...] as of this encounter Visit Diagnoses Diagnosis Ischemic cardiomyopathy Other specified forms of chronic [...] Power of Attor ale? No Care Teams Retail Client Manager Relationship Specialty Start Date End Date Beth Mcginnis DO [address] [place] [address] PCP - General 08/28/10 documented as of this encounter
--- OUTSIDE RECORDS SUMMARY | 2025-01-19 16:59 | External Medical Summary | Summary of Care ---
Author Name Unknown Organization [facility] Address [address] [place] [address] Phone [phone] Care Team Providers Care Junior Software Developer Name Role Phone Beth Mcginnis DO Primary Care Provider Encounter Details Date Type Department Care Team (Late st Contact Info) Description 09/27/2024 Telephone [facility] [address] [place] [address] Beth Mcginnis DO [address] [place] [address] Allergies No known active allergiesdocumented as of this encounter (statuses as of 09/27/2024) Medications Medication Sig Dispensed Refills Start Date End Date Status OMEGA-3 FATTY ACIDS 1000 MG OR CAPSIndications:ASCV D (arteriosclerotic cardiovascular disease) 2-3 per day 0 09/29/2003 Active ASPIRIN 81 MG PO CHEWIndications:Isch emic cardiomyopathy,DM type 2, goal A1c below 7 take one tablet daily 100 Tab 3 06/03/2011 Active LANCETS MISCIndications:DM type 2, goal A1c below 7 test blood sugars 3-4 times daily 2 Box 3 09/16/2013 Active Multiple Vitamins-Minerals (PRESERVISION AREDS 2) Capsule Take 1 Capsule by mouth in the morning and 1 Capsule before bedtime. 06/20/2020 Active CPAP every night at bedtime. Active FreeStyle Judith 2 Sensor Use as directed . Change every 14 days 6 Each 3 03/03/2022 Active traMADol HCl 50 MG Oral Tablet (Ultram)Indications: Left leg cellulitis TAKE 1 TABLET BY MOUTH EVERY 8 HOURS NEEDED FOR SEVERE PAIN 30 Tablet 03/06/2023 Active Ozempic (1 MG/DOSE) 4 MG/3ML Subcutaneous Solution Pen-injector (Semaglutide (1 MG/DOSE)) Through PAP 02/20/2023 Active Tresiba FlexTouch 100 UNIT/ML Subcutaneous Solution [...] Oral Tablet Extended Release 24 Hour (toPROL XL)Indications:Ische lisa cardiomyopathy Take 1 Tablet by mouth in the morning. 90 Tablet 5 11/12/2023 Active Lisinopril 2.5 MG Oral Tablet (Prinivil)Indication s:Ischemic cardiomyopathy TAKE 1 TABLET EVERY DAY 90 Tablet 3 12/29/2023 Active Nitroglycerin 0.4 MG Sublingual Tablet Sublingual (Nitrostat)Indicatio ns:ASCVD (arteriosclerotic cardiovascular disease) Place 1 Tablet under the tongue every 5 minutes as needed for Pain, Chest. Max dose 3 tablets in 15 minutes 25 Tablet 5 03/29/2024 Active metFORMIN HCl 1000 MG Oral Tablet (Glucophage) TAKE 1 TABLET TWICE DAILY 180 Tablet 1 05/03/2024 Active Finasteride 5 MG Oral Tablet (Proscar)Indications :Nodular prostate with urinary obstruction TAKE 1 TABLET EVERY DAY 90 Tablet 1 05/10/2024 Active Warfarin Sodium 10 MG Oral Tablet (Coumadin)Indication s:retirement current use of anticoagulant therapy,Sustained VT (ventricular tachycardia) (HCC) TAKE 1/2 TO 1 TABLET DAILY INSTRUCTED BY THE COUMADIN CLINIC 90 Tablet 3 05/24/2024 Active traZODone HCl 50 MG Oral Tablet (Desyrel)Indications :Primary insomnia TAKE 1 TABLET AT BEDTIME 90 Tablet 1 06/14/2024 Active Amiodarone HCl 200 MG Oral Tablet (Cordarone)Indicatio ns:Ventricular tachycardia (HCC) TAKE 1 TABLET IN THE MORNING AND TAKE 1 TABLET BEFORE BEDTIME 180 Tablet 3 07/07/2024 Active Atorvastatin Calcium 80 MG Oral Tablet (Lipitor)Indications :Elevated LFTs,Dyslipidemia, goal LDL below 70 TAKE 1 TABLET EVERY DAY 90 Tablet 3 07/07/2024 Active Digoxin 125 MCG Oral Tablet (Lanoxin)Indications :Ischemic cardiomyopathy,Heart failure, systolic, due to CAD (HCC) Take 1 Tablet by mouth once a day on Thursday, Thursday, and Thursday only. 40 Tablet 3 07/22/2024 Active Sertraline HCl 25 MG Oral Tablet (Zoloft)Indications: Mild depression Take 1 Tablet by mouth in the morning. Take with 50mg.. 90 Tablet 2 09/15/2024 Active Sertraline HCl 50 MG Oral Tablet (Zoloft)Indications: Depression,Anger TAKE 1 TABLET EVERY DAY 90 Tablet 3 09/21/2024 Active Furosemide 40 MG Oral Tablet (Lasix)Indications:H eart failure, systolic, due to CAD (HCC),Chronic heart failure with reduced ejection fraction and diastolic dysfunction (HCC) TAKE 1 TABLET TWICE DAILY 180 Tablet 1 09/21/2024 Active Sulfamethoxazole-Tri methoprim 800-160 MG Oral Tablet (Bactrim DS)Indications:Cellu litis of right leg Take 1 Tablet by mouth in the morning and 1 Tablet before bedtime. Do all this for 10 days. Until gone.. 20 Tablet 09/26/2024 10/06/2024 Active documented as of this encounter (statuses as of 09/27/2024) Active Problems Problem Noted Date Diagnosed Date [...] as of this encounter (statuses as of 09/27/2024) Resolved Problems Problem Noted Date Diagnosed Date [...] of insulin 02/11/2018 Diabetic retinopathy 01/07/2017 024 Overview: ICD-10 update of inactive term Nonproliferative diabetic [...] inactive term ADVANCE DIRECTIVE INFORMATION 07/22/2005 09/26/2024 Overview: no advance directive- has info DERMATITIS DUE [...] as of this encounter (statuses as of 09/27/2024) Immunizations Name Administration Dates Next Due COVID-19 [...] encounter Miscellaneous Notes * Telephone Encounter - Tory Johnson LPN - 09/27/2024 11:12 AM EST Call placed to let patient know his insulin needle tips are in and can be picked up during normal business hours documented in this encounter Plan of Treatment Upcoming Encounters Date Type Department Care Team (Late st Contact Info) Description 10/11/2024 2:30 PM EST Office Visit Cardiology, [facility] 132 [facility] [place] [address] Bang Mcginnis O, DO [address] [place] [address] 10/13/2024 2:50 PM EST Antico[facility] Pharmacy, [place] [facility] [address] [facility] [address] [facility] [address] 12/05/2024 10:30 AM EST [facility] [address] [facility] [address] [facility] [address] 03/31/2025 11:50 AM EDT [facility] [address] [place] [address] Beth Mcginnis DO [address] [place] [address] Health Maintenance Due Date Last Done Comments DXA Scan 1945 Adult Wellness Visit 01/01/2019 01/01/2018 DIG LEVEL FOR MEDICATION MONITORING YEARLY 04/27/2024 04/27/2023, 07/03/2021 Albumin/Creatinine Ratio 08/28/2024 023, 03/14/2022, 08/22/2019, Additional history exists B-12 08/28/2024 08/28/2023, 02/22, 02/27/2021, Additional history exists COVID-19 Vaccine ( season) 2024 11/19/2021, 03/02/2021, 02/08/2021 Postponed from 07/24/2024 (Patient Declined After Education) Diabetic Eye Exam 10/29/2024 06/10/2023, , 06/09/2023, [...] Power of Attor ale? No Care Teams Junior Software Developer Relationship Specialty Start Date End Date Beth Mcginnis DO [address] [place] [address] PCP - General 08/28/10 documented as of this encounter
--- OUTSIDE RECORDS SUMMARY | 2025-01-19 16:59 | External Medical Summary | Summary of Care ---
Author Name Unknown Organization [facility] Address [address] [facility] [place] [address] Phone [phone] Care Team Providers Care Rn Integrity Name Role Phone Beth Mcginnis DO Primary Care Provider Reason for Visit * Reason Onset Date Comments Medication Update 09/29/2024 shahram Em, and novolog Encounter Details Date Type Department Care Team (Late st Contact Info) Description 09/29/2024 Telephone [place] [address] [place] [address] Beth Mcginnis DO [address] [place] [address] Medication Update (yaquelin Em, and n... 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 current use of anticoagulant therapy 0 08/12/2005 Ischemic cardiomyopathy documented as of this encounter (statuses as of 09/29/2024) Resolved Problems Problem Noted Date Diagnosed Date [...] as of this encounter (statuses as of 09/29/2024) Immunizations Name Administration Dates Next Due COVID-19 mRNA, LNP-s, No Pre serve, 2-Dose Series (LaserLeap) 11/19/2021,03/02/2021,02/08/2021 Pneumococcal Conjugate Vacc, 13 Valent (Prevnar) [...] encounter Miscellaneous Notes * Telephone Encounter - Kerri Zavala LPN - 09/29/2024 12:45 PM EST Spoke to pt to let him know his medication is here, Tresiba, ozempic, and novolog flex pen. 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 documented in this encounter Plan of Treatment Upcoming Encounters Date Type Department Care Team (Late st Contact Info) Description 10/11/2024 2:30 PM EST Office Visit Cardiology, [facility] [address] [place] [address] Bang Mcginnis O, DO [address] [place] [address] 10/13/2024 2:50 PM EST [address], [address] [address] [facility] [address] [facility] [address] 12/05/2024 10:30 AM EST Office Visit Pharmacy, [place] [address] [facility] [address] [facility] [address] [facility] [address] 03/31/2025 11:50 AM EDT Office Visit Family [facility] [address] [facility] [address] Beth Mcginnis DO [address] [facility] [address] Health Maintenance Due Date Last Done Comments [...] Power of Attor ale? No Care Teams Rn Integrity Relationship Specialty Start Date End Date Beth Mcginnis DO [address] [place] [address] PCP - General 08/28/10 documented as of this encounter
--- OUTSIDE RECORDS SUMMARY | 2025-01-19 16:59 | External Medical Summary ---
Author Name Unknown Address Unknown Organization : Laboratory Report Ordering Provider Test Date Status ARNIEMARCO 10/13/2024 14:51:01 Final Therapeutic ranges for non-o perative patients:
Prophylaxsis/treatment of DVT: (Range:2.0-3.0)
Treatment of pulmonary embolism:(Range:2.0-3.0)
Prevention of systemic embolism from:
-tissue heart valves
-acute myocardial infarction
-valvular heart disease
-atrial fibrillation
(Range: 2.0-3.0)
Mechanical prosthetic valves: (Range: 2.5-3.5) Observation Date Value Abnormality Reference (Units ) Status INR in Capillary blood by Coagulation assay 10/13/2024 14:51:01 2.3 (INR) Final Performing Location
--- OUTSIDE RECORDS SUMMARY | 2025-01-19 16:59 | External Medical Summary | Summary of Care ---
Author Name Unknown Organization [facility] Address [address] [facility] [address] Phone [phone] Care Team Providers Care Box Office Agent Name Role Phone Beth Mcginnis Primary Care Provider Encounter Details Date Type Department Care Team (Late st Contact Info) Description 10/17/2024 Orders Only Cardiology, [facility] [address] [place] [address] Ekaterina Donahue CRNP [address] [place] [address] Abnormal LFTs* Allergies No known active allergiesdocumented as of this encounter (statuses as of 10/17/2024) Medications OMEGA-3 FATTY ACIDS 1000 MG OR [...] Warfarin Sodium 10 MG Oral Tablet (Coumadin)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,Sustained VT (ventricular [...] as of this encounter (statuses as of 10/17/2024) Active Problems Problem Noted Date Diagnosed Date [...] implantable de fibrillator 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 or check 02/15/2007 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 0 08/12/2005 Ischemic cardiomyopathy documented as of this encounter (statuses as of 10/17/2024) Resolved Problems Problem Noted Date Diagnosed Date [...] as of this encounter (statuses as of 10/17/2024) Immunizations Name Administration Dates Next Due COVID-19 [...] 10/21/2024 1:00 PM EST Office Visit Cardiology, [facility] [address] [facility] [place] [address] Loraine Lopez CRNP [address] [facility] [place] [address] 11/11/2024 11:50 AM EST Anticoagulation Pharmacy, Rhonda Fischer [facility] [place] [phone] [place] [address] 11/11/2024 12:50 PM EST Office Visit Family Practice, Rhonda Howard [facility] [place] [phone] Beth Mcginnis DO [address] [place] [address] 12/05/2024 10:30 AM EST Office Visit Pharmacy, Rhonda Fischer [facility] [place] [phone] Rhonda [facility] [address] [facility] [place] [address] 12/06/2024 12:15 PM EST Office Visit Cardiology, [facility] [address] [place] [address] Iliana Cortez, [address] [place] [address] 03/31/2025 11:50 AM EDT Office Visit Family Practice, Rhonda Howard [address] [facility] [place] [phone] Beth Mcginnis DO 226 [facility] [place] [address] Scheduled Orders Name Type Priority Associated Diagnoses Orde r Schedule HEPATIC FUNCTION PANEL Lab Routine Abnormal LFTs Expected: 12/07/2024, Expires: 10/17/2025 Health Maintenance Due Date Last Done Comments [...] (Patient Declined After Education) HbA1c 02/06/2025 08/09/2024, 04, 11/12/2023, Additional history exists Depression Monitoring 03/30/2025 [...] as of this encounter Visit Diagnoses Diagnosis Abnormal LFTs- Primary Other abnormal blood chemistry documented in this encounter Advance Directives * [...] Power of Attor ale? No Care Teams Box Office Agent Relationship Specialty Start Date End Date Beth Mcginnis DO [address] [place] [address] PCP - General 08/28/10 documented as of this encounter
--- OUTSIDE RECORDS SUMMARY | 2025-01-19 16:59 | External Medical Summary | Summary of Care ---
Author Name Unknown Organization [facility] Address [address] [facility] [address] Phone [phone] Care Team Providers Care Roller Presser Operator Name Role Phone Beth Mcginnis Primary Care Provider Encounter Details Date Type Department Care Team (Late st Contact Info) Description 10/27/2024 Orders Only PATIENT PORTAL DO NOT DELETE THIS DEPT USED BY [place] [address] Allergies No known active allergiesdocumented as of [...] morning. 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 current use of anticoagulant therapy 0 08/12/2005 [...] mRNA, LNP-s, No Pre serve, 2-Dose Series ([employer]) 11/19/2021,03/02/2021,02/08/2021 Pneumococcal Conjugate Vacc, 13 Valent (Prevnar) [...] EST Anticoagulation Pharmacy, [address] [facility] [place] [phone] [place] [address] [address] [facility] [place] [address] 11/11/2024 12:50 PM EST Office Visit Family Practice, Rhonda Howard [address] [facility] [place] [phone] Beth Mcginnis DO [address] [facility] [place] [address] 11/14/2024 10:00 AM EST [facility] [place] [address] [facility] Cardiology [facility] [address] 12/05/2024 10:30 AM EST Office Visit Pharmacy, Rhonda [address] [facility] [place] [phone] [place] [address] [address] [facility] [place] [address] 12/06/2024 12:15 PM EST [facility] 132 [facility] [place] [address] Iliana Cortez DO [address] [place] [address] 03/31/2025 11:50 AM EDT Office Visit Family Practice, [facility] [address] [facility] [place] [phone] Beth Mcginnis, DO [address] [facility] [place] [address] 04/27/2025 1:30 PM EDT Office Visit Cardiology, [facility] 132 [facility] [place] [address] Loraine Lopez CRNP [address] [place] [address] Health Maintenance Due Date Last Done Comments [...] (Patient Declined After Education) HbA1c 02/06/2025 08/09/2024, 04/, 11/12/2023, Additional history exists Depression Monitoring 03/30/2025 [...] Power of Attor ale? No Care Teams Roller Presser Operator Relationship Specialty Start Date End Date Beth Mcginnis DO [address] [place] [facility] [place] [address] PCP - General 08/28/10 documented as of this encounter
--- OUTSIDE RECORDS SUMMARY | 2025-01-19 16:59 | External Medical Summary | Summary of Care ---
Author Name Unknown Organization [facility] Address [address] [facility] [address] Phone [phone] Care Team Providers Care Bag Repairer Name Role Phone Beth Mcginnis Primary Care Provider Reason for Visit * Reason Onset Date Comments Test Results 10/17/2024 Encounter Details Date Type Department Care Team (Late st Contact Info) Description 10/17/2024 Telephone Cardiology, [facility] [address] [place] [address] Ekaterina Donahue CRNP [address] [place] [address] Test Results Allergies No known active allergiesdocumented [...] Warfarin Sodium 10 MG Oral Tablet (Coumadin)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 10/17/20 24 Active Atorvastatin Calcium 80 MG Oral Tablet (Lipitor)Indicatio ns:Elevated LFTs,Dyslipidemia, goal LDL below 70 TAKE 1 TABLET EVERY DAY 90 Tablet 3 07/07/20 24 024 Discontin ued(Refil l) documented as of this [...] mRNA, LNP-s, No Pre serve, 2-Dose Series ([employer]) 11/19/2021,03/02/2021,02/08/2021 Pneumococcal Conjugate Vacc, 13 Valent (Prevnar) [...] encounter Miscellaneous Notes * Telephone Encounter - Gerhard Raphael LPN - 10/17/2024 2:23 PM EST Called patient and spouse and they stated his is already taking atorvastatin 40 mg daily. Medication list updated. ----- Message from Ekaterina Donahue sent at 10/17/2024 2:08 PM EST ----- Can we please call patient has ask him to reduce his Atorvastatin to 40mg PO Daily (currently on 80mg). He will continue all of his other medications at this time. I would like him to keep his appt with Loraine on 10/21/24. Loraine, when you see Shane, can you please remind him that he will need repeat labs right around the middle/end of Nov 2024. We need to make sure that his liver functions are returning to normal. I have already placed the new lab order to open 12/07/2024. Thank you, Ekaterina documented in this encounter Plan of Treatment Upcoming Encounters Date Type Department Care Team (Late st Contact Info) Description 10/21/2024 1:00 PM EST Office Visit Cardiology, [facility] 132 [facility] [place] [address] Loraine Lopez CRNP [address] [facility] [place] [address] 11/11/2024 11:50 AM EST Anticoagulation Pharmacy, [address] [facility] [phone] [facility] [address] [place] [address] 11/11/2024 12:50 PM EST Office Visit Family [facility], [place] [address] [phone] Beth Mcginnis, DO [address] [facility] [place] [address] 12/05/2024 10:30 AM EST Office Visit Pharmacy, Rhonda Fernandez [facility] [place] [phone] [facility] [address] [place] [address] 12/06/2024 12:15 PM EST Office Visit Cardiology, [facility] 132 [facility] [place] [address] Iliana Cortez DO [address] [place] [address] 03/31/2025 11:50 AM EDT Office Visit Family [facility], Rhonda [address] [place] [phone] Beth Mcginnis DO [address] [place] [address] Health Maintenance Due Date Last Done Comments [...] as of this encounter Visit Diagnoses Diagnosis Elevated LFTs Other abnormal blood chemistry Dyslipidemia, goal LDL below 70 Other and unspecified hyperlipidemia documented in this encounter Advance Directives * [...] Power of Attor ale? No Care Teams Bag Repairer Relationship Specialty Start Date End Date Beth Mcginnis DO [address] [place] [address] PCP - General 08/28/10 documented as of this encounter
--- OUTSIDE RECORDS SUMMARY | 2025-01-19 16:59 | External Medical Summary | Summary of Care ---
Author Name Unknown Organization [facility] Address [address] [place] [address] Phone [phone] Care Team Providers Care Medical Receptionist Assistant Name Role Phone Beth Mcginnis DO Primary Care Provider [phone] Reason for Referral * Evaluate & Treat - Unlimited Visits (Within 10 days (routine)) - Authorized Specialty Diagnoses / Procedures Referred By Contact Referred To Contact Cardiac Electrophysiology / Cardiology Diagnoses VT (ventricular tachycardia) (HCC) Atypical atrial flutter (HCC) Encounter for implantable defibrillator 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 or check Beth Mcginnis DO [address] [place] [address] Iliana Cortez DO [address] [place] [address] Referral ID Status Reason Start Date Expiration Date Visits Requested Visits Authorized [id number] Authorized Specialty Services Required 09/26/[phone] Question Answer Referral Priority Within 10 days (routine) Where should this appointment be scheduled? [facility] Reason for Visit * Reason Comments Follow Up Return in 3 months Encounter Details Date Type Department Care Team (Latest Contact Info) Description 09/26/2024 11:10 AM EST Office Visit [place] [address] [place] [address] Beth Mcginnis, DO [address] [place] [address] Type 2 diabetes mellitus with diabetic nephropathy, with long-term current use of insulin (HCC)*; Encounter for long-term current use of medication; Moderate recurrent major depression (HCC); Ischemic cardiomyopathy; Type 2 diabetes mellitus with hemoglobin A1c goal of less than 8.0% (HCC); HTN, goal below 130/80; VT (ventricular tachycardia) (HCC); Atypical atrial flutter (HCC); Encounter for implantable defibrillator 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 or check; Cellulitis of right leg Allergies No known active allergiesdocumented as of this encounter (statuses as of 09/26/2024) Medications Medication Sig Dispensed Refills Start Date [...] Warfarin Sodium 10 MG Oral Tablet (Coumadin)Indication s:FDC current use of anticoagulant therapy,Sustained VT (ventricular [...] as of this encounter (statuses as of 09/26/2024) Active Problems Problem Noted Date Diagnosed Date [...] implantable de fibrillator 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 or check 02/15/2007 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 therapy 0 08/12/2005 ADVANCE DIRECTIVE INFORMATION 07/22/2005 Overview: no advance directive- has info Ischemic cardiomyopathy documented as of this encounter (statuses as of 09/26/2024) Resolved Problems Problem Noted Date Diagnosed Date [...] as of this encounter (statuses as of 09/26/2024) Immunizations Name Administration Dates Next Due COVID-19 mRNA, LNP-s, No Pre serve, 2-Dose Series (Vidyo) 11/19/2021,03/02/2021,02/08/2021 Pneumococcal Conjugate Vacc, 13 Valent (Prevnar) [...] on file documented as of this encounter Last Filed Vital Signs Vital Sign Reading Time Taken Comments Blood Pressure 98/50 09/26/2024 11:07 AM EST Pulse 82 09/26/2024 11:07 AM EST Temperature 36.7 C (98 F) 09/26/2024 11: 07 AM EST Respiratory Rate 18 09/26/2024 11:0 7 AM EST Oxygen Saturation 97% 09/26/2024 11: 07 AM EST Inhaled Oxygen Concentration - - Weight 84.2 kg (185 lb 11.2 oz) 024 11:07 AM EST Height 180.3 cm (5' 11") 09/26/2024 11: 07 AM EST Body Mass Index 25.9 09/26/2024 11:07 AM EST documented in this encounter Patient Instructions * Patient Instructions* Tory Johnson LPN - 09/26/2024 11:07 AM EST Patient Instructions - Fall Prevention (This education is for all patients over 65 regardless of symptoms) Remember to take your current medications as prescribed. In order to prevent falls, you are encouraged to: Exercise Utilize assistive/adaptive devices Avoid multifocal lenses when walking Avoid hazards in home Maintain a regular toileting schedule Any questions please contact our office. Preventing Falls in the Home (This education is for all patients over 65 regardless of symptoms) As you get older, falls are more likely. Thats because your reaction time slows. Your muscles and joints may also get stiffer, making them less flexible. Illness, medications, and vision changes can also affect your balance. A fall could leave you unable to live on your own. To make your home safer, follow these tips: Floors Put nonskid pads under area rugs Remove throw rugs Replace worn floor coverings Tack carpets firmly to each step on carpeted stairs. Put nonskid strips on the edges of uncarpeted stairs Keep floors and stairs free of clutter and cords Arrange furniture so there are clear pathways Clean up any spills right away Bathrooms Install grab bars in the tub or shower Apply nonskid strips or put a nonskid rubber mat in the tub or shower Sit on a bath chair to bathe Use bathmats with nonskid backing Lighting Keep a flashlight in each room Put a nightlight along the pathway between the bedroom and the bathroom [facility] Patient Education Copyright 2008 - 2010 [employer] except where otherwise noted Preventing Falls: Exercises to Improve Balance, Flexibility, Strength, and Staying Power (This education is for all patients over 65 regardless of symptoms) Certain types of exercises may help make you less likely to fall. Try the ones below. Or do other exercises that your healthcare provider suggests. Depending on your health, you may need to start slowly. Dont let that stop you. Even small amounts of exercise can help you. Be sure to talk to yourhealthcare provider before starting any exercise program. Improve Balance Many types of exercise can help improve balance. Amor chi and yoga are good examples. Heres another one to try. You can do it anytime and almost anywhere. Stand next to a counter or solid support. Push yourself up onto your tiptoes. Hold for 5 seconds. If you start to lose your balance, hold on to the counter. Rest and repeat 5 times. Work up to holding for 20 to 30 seconds, if you can. Increase Flexibility Being more flexible makes it easier for you to move around safely. Try exercises like the seated hamstring stretch. Sit in a chair and put one foot on a stool. Straighten your leg and reach with both hands down either side of your leg. Reach as far down your leg as you can. Hold for about 20 seconds. Go back to the starting position. Then repeat 5 times. Switch legs. Build Strength Resistance exercises help build strength. You can do them without equipment. Or you can use weights, elastic bands, or special machines. One such exercise is called the biceps curl. You can hold a 1 pound weight or even a can of soup. Do this exercise at least 3 times a week. Strive for everyday. Sit up straight in a chair. Keep your elbow close to your body and your wrist straight. Bend your arm, moving your hand up to your shoulder. Then slowly lower your arm. Repeat 5 times. Switch to the other arm. Build Your Staying Power Aerobic exercises make your heart and lungs stronger so you can keep moving longer. Walking and swimming are two of the best types of exercises you can do. Using a stationary bike is great, too. Find an aerobic exercise that you enjoy. Start slowly and build up. Even 5 minutes is helpful. Aimfor a goal of 30 minutes, at least 3 times a week. You dont have to do 30 minutes in one session. Break it up and walk a little throughout the day. More Helpful Tips Start easy. Slowly work up to doing more. Talk with your healthcare provider about the best exercises for you. Call senior centers or health clubs about exercise programs. If needed, have a family member watch you walk every so often to check your stability. Exercise with a friend. Choose an activity you both enjoy. Try exercises that you can do anytime, anywhere. Here are two examples. Have someone with you when you first try these: Practice walking by placing one foot right in front of the other. Stand up and sit down 10 times. Repeat this throughout the day. [employer] Patient Education Copyright 2008 [employer] except where otherwise noted. Preventing Falls: Moving Safely Using a Cane or Walker (This education is for all patients over 65 regardless of symptoms) Keep the cane away from your feet so you dont trip. A walking aid, such as a cane or walker, can help you stay more independent and avoid falls. Remember to keep your walking aid within easy reach when youre in a chair or in bed. And learn how to use it safely so you dont injure yourself. Using a Cane If you have a stronger side, hold the cane on that side. Get your balance. Move the cane and your weaker leg forward. Support your weight on both the cane and your weaker side. Step with your stronger leg. Start again from step 1. If youre using a folding walker, be sure you know how to lock it open. Check that its locked open before each use. Using a Walker Roll the walker (or lift it, if youre using one without wheels) forward about 12 inches. Step forward with your weaker leg first. Use the walker to help keep your balance. Bring your other foot forward to the center of the walker. Start again from step 1. Helpful Tips Check with your healthcare provider about the right walking aid to use. Ask about a walker with a seat attached. Check the tips of your cane or walker to make sure they have nonskid covers. Move slowly from room to room. Dont maharaj. Sit down to get dressed. Use a tammy pack or backpack to keep your hands free. Get help for jobs that mean climbing, even on a stepstool. [employer] Patient Education Copyright 2008 [employer] except where otherwise noted. Treating Urinary Incontinence in Men (This education is for all patients over 65 regardless of symptoms) You can't always control the release of urine. You may leak urine. Or you may not be able to hold your urine until you can get to a bathroom. This is called urinary incontinence. The problem can be managed. Talk to your doctor about your treatment options. Taking Medications Prescription medications may help you. They may: Help the sphincter to work better. (This is the muscle that closes to keep urine from leaking out of the bladder.) Help stop the bladder from cece too often to push urine out. Help the bladder muscles contract with more force. Help relax the sphincter muscle and allow urine to flow more freely. Making Changes to Your Routine Certain changes in your daily routine may help. These include: Avoiding caffeine and alcohol. Using timed voiding. This is following a schedule for drinking fluids and urinating. Doing Kegel exercises daily. These exercises involve tightening the muscles in your sphincter and around your bladder to help strengthen them. Your doctor can explain how to do them. Using a Catheter A catheter is a narrow tube that is inserted through the urethra into the bladder. It drains urine.A condom catheter covers the penis. It channels urine into a collection bag. It is worn most of thetime. Intermittent catheterization means inserting a catheter to drain the bladder, then removing it. This is done on a regular schedule. Having Surgery If other options don't work, surgery may be recommended. If surgery is an option, your healthcare provider can discuss it with you and explain its risks and benefits. Healing After Prostate Surgery Surgery on the prostate gland can cause incontinence. Most often, the incontinence is only for a short time. It clears up when healing is complete. Very rarely, prostate surgery can result in permanent incontinence. documented in this encounter Progress Notes * Beth Mcginnis DO - 09/26/2024 11:25 AM EST Subjective: Shane Lynch is a 79 year old male. Chief Complaint Patient presents with Follow Up Return in 3 months HPI: 79 year old male here today with his for a follow-up. He has hx of Ischemic Cardiomyopathy, Severe systolic Dysfunction, and BIV ICD placement, dyslipidemia and Type 2 diabetes Currently feels weak at times and near syncope. Fortunately he has not had any syncope episodes. Denies any more shocking while sleeping. In he had reported this to me, and message sent to cardiology and he had device interrogated and showed VT> he is on amio 200 mg bid, but LFTs are elevated. He had seen cardiology in August, no med changes. He was suppose to see EP but that never got set up. I have sent EP and is general systems librarian a message. He sees gen cardiology in a few weeks. His last echo was stable without changes. EF was 20-20 %. Today in looking at his legs he has an open wound on the R howe area. He hit his leg on at tractor about 3-4 days ago. The leg is swelling and drainage out of the cut. No fevers. He has not seen anyone for this. Results for orders placed or performed in visit on 09/02/24 HEPATIC FUNCTION PANEL Result Value Ref Range Albumin 4.0 3.8 - 5.0 g/dL AST 100 (H) 10 - 50 U/L Alkaline Phosphatase 103 35 - 130 U/L ALT 133 (H) 10 - 50 U/L Bilirubin, Total 0.3 <=1.2 mg/dL Bilirubin, Direct <0.2 0.0 - 0.3 mg/dL Protein 6.7 6.0 - 8.3 g/dL BASIC METABOLIC PANEL Result Value Ref Range BUN 16 6 - 20 mg/dL CREATININE 0.9 0.6 - 1.2 mg/dL EGFR 86 >=60 mL/min SODIUM 141 135 - 146 mmol/L POTASSIUM 4.8 3.5 - 5.1 mmol/L CHLORIDE 103 98 - 107 mmol/L CO2 26 22 - 32 mmol/L ANION GAP 12 7 - 15 mmol/L GLUCOSE 129 (H) 70 - 120 mg/dL CALCIUM 9.5 8.4 - 10.2 mg/dL TSH Result Value Ref Range TSH 0.60 0.27 - 4.20 uIU/mL PT INR Result Value Ref Range Prothrombin Time 36.2 (H) 11.6 - 15.2 seconds INR 3.6 (H) 0.8 - 1.2 *Note: Due to a large number of results and/or encounters for the requested time period, some results have not been displayed. A complete set of results can be found in Results Review. His BP are stable. LFTs are elevated. TSH stable. BG's are stable. He is on coumadin. 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 ([facility]) Moderate recurrent major depression ([facility]) Low back pain with right-sided sciatica Type 2 diabetes mellitus with diabetic nephropathy, with long-term current use of insulin ([facility]) HTN, goal below 130/80 ASCVD (arteriosclerotic cardiovascular disease) Bradycardia, sinus LBBB (left bundle branch block) Chronic heart failure with reduced ejection fraction and diastolic dysfunction ([facility]) Atypical atrial flutter ([facility]) S/P atrioventricular emely ablation Current Outpatient Medications [...] mouth in the morning. 90 Tablet 5 Lisinopril 2.5 MG Oral Tablet (Prinivil) TAKE [...] BY THE COUMADIN CLINIC 90 Tablet 3 traZODone HCl 50 MG Oral Tablet (Desyrel) TAKE 1 TABLET AT BEDTIME 90 Tablet 1 Amiodarone HCl 200 MG Oral Tablet (Cordarone) TAKE 1 TABLET IN THE MORNING AND TAKE 1 TABLET BEFOREBEDTIME 180 Tablet 3 Atorvastatin Calcium 80 MG Oral Tablet (Lipitor) TAKE 1 TABLET EVERY DAY 90 Tablet 3 Digoxin 125 MCG Oral Tablet (Lanoxin) Take 1 Tablet by mouth once a day on Thursday, Thursday, and Thursday only. 40 Tablet 3 Furosemide 40 MG Oral Tablet (Lasix) TAKE 1 TABLET TWICE DAILY 180 Tablet 1 LANCETS MISC test blood sugars 3-4 times daily 2 Box 3 Sertraline HCl 25 MG Oral Tablet (Zoloft) Take 1 Tablet by mouth in the morning. Take with 50mg.. 90 Tablet 2 Sertraline HCl 50 MG Oral Tablet (Zoloft) TAKE 1 TABLET EVERY DAY 90 Tablet 3 No current facility-administered medications for this visit. Review of patient's allergies indicates: No Known Allergies Objective: BP 98/50 | Pulse 82 | Temp 36.7 C (98 F) (Tympanic) | Resp 18 | Ht 1.803 m (5' 11") | Wt 84.2 kg (185 lb 11.2 oz) | SpO2 97% | BMI 25.90 kg/m | BSA 2.05 m Physical Exam: General: alert, healthy, and no distress Heart: regular rate & rhythm, no murmur, and no gallops Lungs: chest symmetric with normal AP diameter, no chest deformities noted, no chest wall tenderness, lungs clear to auscultation Abdomen: abdomen soft, non-tender, normal bowel sounds, and no masses or organomegaly Extremities: R leg swelling, on the howe open laceration, and drainage, this was cultured. I did terri the cellulitis with the marker. ASSESSMENT/PLAN: Type 2 diabetes mellitus with diabetic nephropathy, with long-term current use of insulin ([facility]) (Primary) Stable. 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 More sleep during the day. I asked that he stop the trazodone. Ischemic cardiomyopathy EF stable. Keep cardiology appt. Type 2 diabetes mellitus with hemoglobin A1c goal of less than 8.0% ([facility]) HTN, goal below 130/80 -BP is low, will mostly likely need medication adjustment. VT (ventricular tachycardia) ([facility]) - ELECTROPHYSIOLOGY REFERRAL OP He was suppose to see EP back in February, placed another referral. Atypical atrial flutter ([facility]) - ELECTROPHYSIOLOGY REFERRAL OP Encounter for implantable defibrillator 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 or check - ELECTROPHYSIOLOGY REFERRAL OP Cellulitis of right leg If area becomes more red and then to call office. Treated wound with vaseline gauze and lightly wrapped. - Sulfamethoxazole-Trimethoprim 800-160 MG Oral Tablet (Bactrim DS); Take 1 Tablet by mouth in the morning and 1 Tablet before bedtime. Do all this for 10 days. Until gone.. - CULTURE, WOUND, SUPERFICIAL, AEROBIC; Future; Expected date: 09/26/2024 - CULTURE, WOUND, SUPERFICIAL, AEROBIC I spent a total of 40-54 minutes (exact time 42 mins) on the date of service in preparation, delivery, and documentation of the care provided to Shane Lynch excluding any time spent in the performance of separately billed services or time spent by another provider/QHP. Beth Mcginnis DO documented in this encounter Nursing Notes * Tory Johnson LPN - 09/26/2024 11:07 AM EST The patient has been properly identified by confirmation of name and date of . Chief Complaint Patient presents with Follow Up Return in 3 months Patient reports he has a rash on his left leg that he's always had it but it got worse since he hadhis toes amputated. Describes as itchy, red,skin is dried out but he said it was "oozing" last week. Denies pain documented in this encounter Plan of Treatment Upcoming Encounters Date Type Department Care Team (Late st Contact Info) Description 10/11/2024 2:30 PM EST Office Visit Cardiology, [facility] [address] [facility] [place] [address] Bang Mcginnis DO [address] [facility] [place] [address] 10/13/2024 2:50 PM EST Anticoagulation Pharmacy, [place] [address] [facility], [place] [address] [place], [facility] [address] [place] [facility] [place] [address] 12/05/2024 10:30 AM EST Office Visit Pharmacy, [place] [address] [place] [facility] [place] [address] [place], [facility] [address] [place] [facility] [place] [address] 03/31/2025 11:50 AM EDT Office Visit [facility] [address] [place] [address] Beth Mcginnis DO [address] [facility], [place] [address] Pending Results Name Type Priority Associated Diagnoses Date /Time CULTURE, WOUND, SUPERFICIAL, AEROBIC Lab Routine Cellulitis of right leg 09/26/2024 12:08 PM EST Scheduled Orders Name Type Priority Associated Diagnoses Orde r Schedule CULTURE, WOUND, SUPERFICIAL, AEROBIC Lab Routine Cellulitis of right leg Expected: 09/26/2024, Expires: 09/26/2025 Scheduled Referrals Name Type Priority Associated Diagnoses [...] 08/28/2023, 042 12/2021, 02/27/2021, Additional history exists COVID-19 Vaccine () 09/27/2024 11/19/2021, 03/02/2021, 02/08/2021 Postponed from 07/24/2024 (Patient Declined After Education) Diabetic Eye Exam 10/29/2024 06/10/2023, , 06/09/2023, Additional history exists Postponed from 06/10/2024 (Patient Declined After Education) HbA1c 02/06/2025 08/09/2024, 04/1 , 11/12/2023, Additional [...] Diagnoses Diagnosis Type 2 diabetes mellitus with diabetic nephropathy, with long-term current use of insulin (HCC)- Primary Encounter for long-term current use of medication Moderate recurrent major depression (HCC) Major depressive disorder, recurrent episode, moderate Ischemic cardiomyopathy Other specified forms of chronic ischemic heart disease Type 2 diabetes mellitus with hemoglobin A1c goal of less than 8.0% (HCC) HTN, goal below 130/80 Unspecified essential hypertension VT (ventricular tachycardia) (HCC) Paroxysmal ventricular tachycardia Atypical atrial flutter (HCC) Atrial flutter Encounter for implantable defibrillator 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 or check Fitting and adjustment of automatic implantable cardiac defibrillator Cellulitis of right leg Cellulitis and abscess of leg, except foot documented in this encounter Advance Directives * [...] of Attor ale? No Care Teams Medical Receptionist Assistant Relationship Specialty Start Date End Date Beth Mcginnis DO [address] [place] [address] PCP - General 08/28/10 documented as of this encounter
--- OUTSIDE RECORDS SUMMARY | 2025-01-19 16:59 | External Medical Summary | Summary of Care ---
Author Name Unknown Organization [facility] Address [address] [place] [address] Phone [phone] Care Team Providers Care Field Hand Name Role Phone RahelBeth Trip LING Primary Care Provider [phone] Reason for Referral * Evaluate & Treat - Unlimited Visits (Within 30 days (routine)) - Authorized Specialty Diagnoses / Procedures Referred By Liang de leon Referred To Contact Pharmacist / Pharmacy Diagnoses Chronic heart failure with reduced ejection fraction and diastolic dysfunction (HCC) Loraine Lopez CRNP [address] [place] [address] Phone: tel: fax: Referral ID Status Reason Start Date Expiration Date Visits Requested Visits Authorized [id number] Authorized Specialty Services Required 4 04/19/2025 99 99 Question Answer Referral Priority Within 30 days (routine) Where should this appointment be scheduled? [facility] Referring Provider Role: Specialist Specialty: Cardio Reason for Referral: HF Comments Pharmacist Medication Therapy Management: Minimum frequency patient should be seen in person for medication management: as appropriate per clinical condition and patient status By my signature, I understand that my patient Shane Lynch will have his medication therapy managed by the [facility] Medication Therapy Disease [facility] ([facility]) per established policies, procedures, and protocols. I also certify that this referral may serve as an initiation of service for the management of drug therapy in the above noted patient. [facility] providers will be responsible for scheduling patient visits, obtaining appropriate laboratory studies, and adjusting medication management therapy per patient's need, in addition to those roles spelled out in the clinic policy, procedures, and drug management protocols. I understand that the service provided by the [facility] Clinic is voluntary and have informed patient that they can refuse the service at their discretion. I am aware that the [facility] Clinic will provide me with a copy of the patient encounter via my [employer] InBasket. I authorize the [facility] Clinic to carry out these activities on my behalf. I consider this program to be a necessary part of the patient's medical care. DEBBIE Butler Reason for Visit * Reason Comments Follow Up Encounter Details Date Type Department Care Team (Late st Contact Info) Description 10/21/2024 1:00 PM EST Office Visit Cardiology, [facility] [address] [facility] [place] [phone] Loraine Lopez CRNP [address] [place] [address] [place] [address] Chronic heart failure with reduced ejection fraction and diastolic dysfunction (HCC)*; Dyslipidemia, goal LDL below 70; Sustained VT (ventricular tachycardia) (HCC); Elevated LFTs; Encounter for long-term (current) use of medications; Ischemic cardiomyopathy; ASCVD (arteriosclerotic cardiovascular disease); PAF (paroxysmal atrial fibrillation) (HCC); Presence of automatic cardioverter/defibrilla tor (AICD) Allergies No known active allergiesdocumented as of this encounter (statuses as of 10/21/2024) Medications OMEGA-3 FATTY ACIDS 1000 MG OR [...] Warfarin Sodium 10 MG Oral Tablet (Coumadin)Indicati ons:longterm current use of anticoagulant therapy,Sustained VT (ventricular [...] mouth in the morning. 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 0 08/12/2005 Ischemic cardiomyopathy documented as of this encounter (statuses as of 10/21/2024) Resolved Problems Problem Noted Date Diagnosed Date [...] as of this encounter (statuses as of 10/21/2024) Immunizations Name Administration Dates Next Due COVID-19 mRNA, LNP-s, No Pre serve, 2-Dose Series (Y[employer]pee [employer]) 11/19/2021,03/02/2021,02/08/2021 Pneumococcal Conjugate Vacc, 13 Valent (Prevnar) [...] Sign Reading Time Taken Comments Blood Pressure 102/58 10/21/2024 12:53 PM EST Pulse 76 10/21/2024 12:53 PM EST Temperature - - Respiratory Rate 16 10/21/2024 12:53 PM EST Oxygen Saturation - - Inhaled Oxygen Concentration - - Weight 79.5 kg (175 lb 4 oz) 10/21/2024 12:53 PM EST Height - - Body Mass Index 24.44 09/26/2024 11:07 AM EST documented in this encounter Patient Instructions * Patient Instructions* Loraine Lopez CRNP - 10/21/2024 1:22 PM EST -Please record your daily weights first thing in the morning after using the bathroom. -Please do not consume more than 64 fluid ounces per day. (64 oz = 8 cups) -Limit sodium intake to no more than 2,000 mg/day. -Put on your compression stockings first thing in the morning and remove at night. Repeat daily. -Elevate your legs throughout the day. Symptoms to report: - Increase in shortness of breath, increased swelling of your feet, legs, ankles or stomach, chest pain, dry-hacking cough, feeling more tired, or harder to breath when lying down - Weight gain of 3 lbs in 24 hours or 5 lbs in 1 week Take digoxin 0.125 mg every Thursday, Thursday, and Thursday documented in this encounter Nursing Notes * Blanca White CMA - 10/21/2024 12:48 PM EST Examination Room: 2 Name: Shane Lynch Date of : (1945). Reason for Visit: 6 month FU Interim Hospitalization(s): denies Problems/Concerns: denies Chest Pain/SOB: denies [facility] Discussed: No My [facility] is a way you can talk to your provider online through e-mail. Would you like to sign up? I can activate it for you? ALREADY ACTIVE Patient was instructed to not get up on the exam table until directed and assisted by their provider; patient is to remain seated in the chair/ wheelchair/ exam table for fall prevention and safety reasons. Patient is aware to have assistance to step down off exam table with personnel. Patient voiced full comprehension of instructions. documented in this encounter Plan of Treatment Upcoming Encounters Date Type Department Care Team (Late st Contact Info) Description 11/11/2024 11:50 AM EST Anticoagulation Pharmacy, Rhonda Duran [address] [place] [phone] [facility] [address] [facility] [place] [address] 11/11/2024 12:50 PM EST Office Visit Family [facility], Rhonda Howard [address] [phone] Beth Mcginnis, DO [address] [address] 12/05/2024 10:30 AM EST Office Visit Pharmacy, [place] [phone] Rhonda [address] [address] 12/06/2024 12:15 PM EST Office Visit Cardiology, [facility] [address] [facility] [place] [address] Iliana Cortez DO [address] [place] [address] 03/31/2025 11:50 AM EDT Office Visit [facility] [phone] Beth Mcginnis, DO [address] [facility] Renee EllisJ[place] [address] 04/27/2025 1:30 PM EDT Office Visit Cardiology, [facility] 132 [facility] [place] [address] Loraine Lopez, DEBBIE [address] [facility] [place] [address] Scheduled Orders Name Type Priority Associated Diagnoses Orde r Schedule LIPID PANEL WITH DIRECT LDL IF TG IS HIGH Lab Routine Dyslipidemia, goal LDL below 70 Expected: 10/21/2024, Expires: 10/21/2025 DIGOXIN LEVEL Lab Routine Expected: 1 12/22/2023, Expires: 10/21/2025 Scheduled Referrals Name Type Priority Associated Diagnoses Orde r Schedule PHARMACIST MEDS THERAPY MGMT REFERRAL OP Referral Within 30 days (routine) Chronic heart failure with reduced ejection fraction and diastolic dysfunction (HCC) Ordered: 10/21/2024 Health Maintenance Due Date Last Done Comments [...] as of this encounter Visit Diagnoses Diagnosis Chronic heart failure with reduced ejection fraction and diastolic dysfunction (HCC)- Primary Dyslipidemia, goal LDL below 70 Other and unspecified hyperlipidemia Sustained VT (ventricular tachycardia) (HCC) Paroxysmal ventricular tachycardia Elevated LFTs Other abnormal blood chemistry Encounter for long-term (current) use of medications Encounter for long-term (current) use of other medications Ischemic cardiomyopathy Other specified forms of chronic ischemic heart disease ASCVD (arteriosclerotic cardiovascular disease) Unspecified cardiovascular disease PAF (paroxysmal atrial fibrillation) (HCC) Atrial fibrillation Presence of automatic cardioverter/defibrillator (AICD) Automatic implantable cardiac defibrillator in situ documented in this encounter Advance Directives * [...] Power of Attor ale? No Care Teams Field Hand Relationship Specialty Start Date End Date Beth Mcginnis DO [address] [place] [address] PCP - General 08/28/10 documented as of this encounter
--- OUTSIDE RECORDS SUMMARY | 2025-01-19 16:59 | External Medical Summary | Summary of Care ---
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 Do all this for 10 days. Until gone.. 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 0 08/12/2005 Ischemic cardiomyopathy documented as of this encounter (statuses as of 09/30/2024) Resolved Problems Problem Noted Date Diagnosed Date [...] as of this encounter (statuses as of 09/30/2024) Immunizations Name Administration Dates Next Due COVID-19 mRNA, LNP-s, No Pre serve, 2-Dose Series (Zillabyte) 11/19/2021,03/02/2021,02/08/2021 Pneumococcal Conjugate Vacc, 13 Valent (Prevnar) [...] 10/11/2024 2:30 PM EST Office Visit [facility], [facility] [place] [address] Bang Mcginnis, DO [address] [place] [address] 10/13/2024 2:50 PM EST Anticoagulation Pharmacy, [place] [address] [address] [facility] [address] [facility] [address] [facility] [address] 12/05/2024 10:30 AM EST Office Visit Pharmacy, [facility] [address] [facility] [address] [facility] [address] [facility] [address] 12/06/2024 12:15 PM EST Office Visit Cardiology, [facility] [address] [place] [address] Iliana Cortez, DO [address] [place] [address] 03/31/2025 11:50 AM EDT Office Visit Family [facility] [address] [facility] [place] [address] Beth Mcginnis, [address] [facility] [place] [address] Health Maintenance Due Date Last Done Comments [...] Date/Time Associated Diagnosis Comments CARDIOLOGY SCANNED RESULT 09/30/2024 documented in this encounter Results * CARDIOLOGY SCANNED RESULT (09/30/2024) 09/30/2024 us Bang Mcginnis DO OTHER Final Resul t documented in this encounter Advance Directives * [...] Power of Attor ale? No Care Teams Top Cager Relationship Specialty Start Date End Date Beth Mcginnis DO [address] [place] [address] PCP - General 08/28/10 documented as of this encounter
--- OUTSIDE RECORDS SUMMARY | 2025-01-19 17:00 | External Medical Summary | Summary of Care ---
Author Name Unknown Organization [facility] Address [address] [place] [address] Phone [phone] Care Team Providers Care Admissions Specialist Name Role Phone Beth Mcginnis Primary Care Provider Encounter Details Date Type Department Care Team (Late st Contact Info) Description 09/12/2024 Orders Only Outcomes Research Department [address] [place], [place] [id number] Sailaja Angel CHRA [employer] Other*[id number] Allergies No known active allergiesdocumented as of this encounter (statuses as of 09/12/2024) Medications Medication Sig Dispensed Refills Start Date [...] in the morning. Obtaining from PAP. Active Sertraline HCl 25 MG Oral Tablet (Zoloft)Indications:M ild depression TAKE 1 TABLET BY MOUTH IN THE MORNING. TAKE 25 MG WITH 50 MG DAILY. 90 Tablet 1 08/05/2023 Active Sertraline HCl 50 MG Oral Tablet [...] (Nitrostat)Indication s:ASCVD (arteriosclerotic cardiovascular disease) Place 1 Tablet under the tongue every 5 minutes as needed for Pain, Chest. 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,Sustained VT (ventricular tachycardia) (HCC) TAKE 1/2 TO 1 TABLET DAILY INSTRUCTED BY THE [facility] 90 Tablet 3 05/24/2024 Active traZODone HCl 50 MG Oral Tablet (Desyrel)Indications: Primary insomnia TAKE 1 TABLET AT BEDTIME 90 Tablet 1 06/14/2024 Active Amiodarone HCl 200 MG Oral Tablet (Cordarone)Indication s:Ventricular tachycardia (HCC) TAKE 1 TABLET IN THE MORNING AND TAKE 1 TABLET BEFORE BEDTIME 180 Tablet 3 07/07/2024 Active Atorvastatin Calcium 80 MG Oral Tablet (Lipitor)Indications: Elevated LFTs,Dyslipidemia, goal LDL below 70 TAKE 1 TABLET EVERY DAY 90 Tablet 3 07/07/2024 Active Digoxin 125 MCG Oral Tablet (Lanoxin)Indications: Ischemic cardiomyopathy,Heart failure, systolic, due to CAD (HCC) Take 1 Tablet by mouth once a day on Thursday, Thursday, and Thursday only. 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 0 08/12/2005 ADVANCE DIRECTIVE INFORMATION 07/22/2005 Overview: no advance directive- has info Ischemic cardiomyopathy documented as of this encounter (statuses as of 09/12/2024) Resolved Problems Problem Noted Date Diagnosed Date [...] as of this encounter (statuses as of 09/12/2024) Immunizations Name Administration Dates Next Due COVID-19 mRNA, LNP-s, No Pre serve, 2-Dose Series (SumoSkinny) 11/19/2021,03/02/2021,02/08/2021 Pneumococcal Conjugate Vacc, 13 Valent (Prevnar) [...] Care Team (Late st Contact Info) Description 09/26/2024 11:10 AM EST Office Visit Family [facility] [address] [facility] [phone] Beth Mcginnis, DO [address] [facility] [address] 09/30/2024 10:30 AM EST Anticoagulation Pharmacy, [place] [address] [facility] [address] [facility] [address] [facility] [address] 10/11/2024 2:30 PM EST Office Visit Cardiology, [facility] [address] [facility] [place] [address] Bang Mcginnis DO [address] [facility] [place] [address] 12/05/2024 10:30 AM EST Office Visit Pharmacy, [place] [address] [facility] [address] [facility] [address] [facility] [address] Scheduled Orders Name Type Priority Associated Diagnoses Orde r Schedule MYCODE SUBSEQUENT ADULT Lab Routine [employer] Other*[id number] Every 6 Months for 2 Occurrences starting 09/12/2024 until 10/02/2025 Health Maintenance Due Date Last Done Comments [...] as of this encounter Visit Diagnoses Diagnosis [employer] Other*[id number] documented in this encounter Advance Directives * [...] Power of Attor ale? No Care Teams Admissions Specialist Relationship Specialty Start Date End Date Beth Mcginnis DO [address] [place] [place] [address] PCP - General 08/28/10 documented as of this encounter
--- OUTSIDE RECORDS SUMMARY | 2025-01-19 17:00 | External Medical Summary | Summary of Care ---
Author Name Unknown Organization [facility] Address [address] [place] [place] [facility] [place] [address] Phone [phone] Care Team Providers Care Instructional Systems Design Consultant Name Role Phone Beth Mcginnis Primary Care Provider Reason for Visit * Reason Onset Date Comments medication change 09/26/2024 Encounter Details Date Type Department Care Team (Late st Contact Info) Description 09/26/2024 Telephone Pharmacy [facility] [address] [place] [address] [facility] [address] [place] [address] medication change Allergies No known active allergiesdocumented as of [...] Warfarin Sodium 10 MG Oral Tablet (Coumadin)Indication s:[facility] current use of anticoagulant therapy,Sustained VT (ventricular [...] implantable de fibrillator 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 This is a 25% reduction. INR rescheduled from 09/30 to 10/13 (which would be 1 week after pt stopped Bactrim). Patient Phone Numbers mobile [phone] Called and spoke to Milvia (patient's ) who verbalized understanding of above plan. Faye Anderson, PharmD, BCACP Clinical Pharmacist Medication Therapy Disease Management 09/26/2024, 1:34 PM Electronically signed by Faye Anderson [facility] at 09/26/2024 1:34 PM EST * Telephone Encounter - Caroline Thibodeaux [facility] - 09/26/2024 11:59 AM EST Images from the original note were not included. Please see the following BPA for patient: [id number]/04/24 1157Beth Mcginnis DO [[id number]] Sign Orders Medication - ERX: SULFAMETHOXAZOLE-TRIMETHOPRIM 800-160 MG OR TABS [[id number]] Medication - ERX: AMIODARONE HCL 200 MG OR TABS [[id number]] Medication - ERX: WARFARIN SODIUM 10 MG OR TABS [[id number]] Order - ORD: Warfarin Sodium 10 MG Oral Tablet (Coumadin) [[id number]] Order - ORD: Amiodarone HCl 200 MG Oral Tablet (Cordarone) [[id number]] Order - ORD: Sulfamethoxazole-Trimethoprim 800-160 MG Oral Tablet (Bactrim DS) [[id number]] None Caroline Thibodeaux RPh, PharmD, BCACP Clinical Pharmacist Medication Therapy Management [facility] 09/26/24, 12:00 PM documented in this encounter Plan of Treatment Upcoming Encounters Date Type Department Care Team (Late st Contact Info) Description 10/11/2024 2:30 PM EST Office Visit Cardiology, [facility] [address] [facility] [address] Bang Mcginnis DO [address] [facility] [place] [address] 10/13/2024 2:50 PM EST Anticoagulation Pharmacy, [address] [address] [facility] [address] [facility] [address] 12/05/2024 10:30 AM EST Office Visit Pharmacy, [place] [address] [address] [facility] [address] [facility] [address] [facility], [place] [address] 03/31/2025 11:50 AM EDT Office Visit Family [facility] [address] [facility] [address] Beth Mcginnis DO [address] [facility] [address] Health Maintenance Due Date Last Done Comments DXA Scan 1945 Adult Wellness Visit 01/01/2019 01/01/2018 DIG LEVEL FOR MEDICATION MONITORING YEARLY 04/27/2024 04/27/2023, 07/03/2021 Albumin/Creatinine Ratio 08/28/2024 023, 03/14/2022, 08/22/2019, Additional history exists B-12 08/28/2024 08/28/2023, 0412/2021, 02/27/2021, Additional history exists COVID-19 Vaccine ( [...] Power of Attor ale? No Care Teams Instructional Systems Design Consultant Relationship Specialty Start Date End Date Beth Mcginnis DO [address] [place] [address] PCP - General 08/28/10 documented as of this encounter
--- OUTSIDE RECORDS SUMMARY | 2025-01-19 17:00 | External Medical Summary | Summary of Care ---
Author Name Unknown Organization [facility] Address [address] [place] [address] Phone [phone] Care Team Providers Care Court Officer Name Role Phone Beth Mcginnis Primary Care Provider Reason for Visit * Reason Onset Date Comments medication change 09/26/2024 Encounter Details Date Type Department Care Team (Late st Contact Info) Description 09/26/2024 Telephone Pharmacy [facility] [address] [place] [address] [facility] [address] [place] [address] medication change Allergies No known active allergiesdocumented [...] Warfarin Sodium 10 MG Oral Tablet (Coumadin)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 Please see the following BPA for patient: [id number]/04/24 1157Beth Mcginnis DO [[id number]] Sign Orders Medication - ERX: SULFAMETHOXAZOLE-TRIMETHOPRIM 800-160 MG OR TABS [[id number]] Medication - ERX: AMIODARONE HCL 200 MG OR TABS [[id number]] Medication - ERX: WARFARIN SODIUM 10 MG OR TABS [[id number]] Order - ORD: Warfarin Sodium 10 MG Oral Tablet (Coumadin) [[id number]] Order - ORD: Amiodarone HCl 200 MG Oral Tablet (Cordarone) [[id number]] Order - ORD: Sulfamethoxazole-Trimethoprim 800-160 MG Oral Tablet (Bactrim DS) [[id number]] None Caroline Thibodeaux RPh, PharmD, BCACP Clinical Pharmacist Medication Therapy Management Clinic 09/26/24, 12:00 PM documented in this encounter Plan of Treatment Upcoming Encounters Date Type Department Care Team (Late st Contact Info) Description 09/30/2024 10:30 AM EST Anticoagulation Pharmacy, [address] [place] [address] [facility] [address] [facility] [address] 10/11/2024 2:30 PM EST Office Visit Cardiology, [facility] [address] [place] [address] Bang Mcginnis DO [address] [place] [address] 12/05/2024 10:30 AM EST Office Visit Pharmacy, [place] [address] [facility] [place] [address] [facility] [address] [facility] [place] [address] 03/31/2025 11:50 AM EDT Office Visit Family Practice, [facility] [address] [facility] [address] Beth Mcginnis, DO [address] [facility] [address] Health Maintenance Due Date Last Done Comments [...] Power of Attor ale? No Care Teams Court Officer Relationship Specialty Start Date End Date Beth Mcginnis DO [address] [place] [address] PCP - General 08/28/10 documented as of this encounter
--- OUTSIDE RECORDS SUMMARY | 2025-01-19 17:00 | External Medical Summary | Summary of Care ---
Author Name Unknown Organization [facility] Address [address] [place] [address] Phone [phone] Care Team Providers Care Auto Painter Name Role Phone Alejandro Fry DO Primary Care Provider Reason for Visit * Reason Onset Date Comments Medication Refill 09/13/2024 Encounter Details Date Type Department Care Team (Late st Contact Info) Description 09/13/2024 Refill [place] [address] [place] [address] Alejandro Fry DO [address] [place] [address] Mild depression Allergies No known active allergiesdocumented as of this encounter (statuses as of 09/15/2024) Medications Medication Sig Dispensed Refills Start Date End Date Status OMEGA-3 FATTY ACIDS 1000 MG OR CAPSIndications:ASC VD (arteriosclerotic cardiovascular disease) 2-3 per day 0 09/29/2003 Active ASPIRIN 81 MG PO CHEWIndications:Isc hemic cardiomyopathy,DM type 2, goal A1c below 7 [...] Active traMADol HCl 50 MG Oral Tablet (Ultram)Indications :Left leg cellulitis TAKE 1 TABLET BY MOUTH EVERY 8 HOURS NEEDED FOR SEVERE PAIN 30 Tablet 03/06/2023 Active Ozempic (1 MG/DOSE) 4 MG/3ML Subcutaneous Solution Pen-injector (Semaglutide (1 MG/DOSE)) Through PAP 02/20/2023 Active Tresiba FlexTouch 100 UNIT/ML Subcutaneous Solution Pen-injector (Insulin Degludec) Inject 10 Units under the skin in the morning. Obtaining from PAP. Active Sertraline HCl 50 MG Oral Tablet (Zoloft)Indications :Depression,Anger TAKE 1 TABLET EVERY DAY 90 Tablet [...] Oral Tablet Extended Release 24 Hour (toPROL XL)Indications:Isch emic cardiomyopathy Take 1 Tablet by mouth in the morning. 90 Tablet 5 11/12/2023 Active Furosemide 40 MG Oral Tablet (Lasix)Indications: Heart failure, systolic, due to CAD (HCC),Chronic heart failure with reduced ejection fraction and diastolic dysfunction (HCC) TAKE 1 TABLET TWICE DAILY 180 Tablet 3 11/18/2023 Active Lisinopril 2.5 MG Oral Tablet (Prinivil)Indicatio ns:Ischemic cardiomyopathy TAKE 1 TABLET EVERY DAY 90 Tablet 3 12/29/2023 Active Nitroglycerin 0.4 MG Sublingual Tablet Sublingual (Nitrostat)Indicati ons:ASCVD (arteriosclerotic cardiovascular disease) Place 1 Tablet under the tongue every 5 minutes as needed for Pain, Chest. Max dose 3 tablets in 15 minutes 25 Tablet 5 03/29/2024 Active metFORMIN HCl 1000 MG Oral Tablet (Glucophage) TAKE 1 TABLET TWICE DAILY 180 Tablet 1 05/03/2024 Active Finasteride 5 MG Oral Tablet (Proscar)Indication s:Nodular prostate with urinary obstruction TAKE 1 TABLET EVERY DAY 90 Tablet 1 05/10/2024 Active Warfarin Sodium 10 MG Oral Tablet (Coumadin)Indicatio ns:custodial current use of anticoagulant therapy,Sustained VT (ventricular tachycardia) (HCC) TAKE 1/2 TO 1 TABLET DAILY INSTRUCTED BY THE [facility] 90 Tablet 3 05/24/2024 Active traZODone HCl 50 MG Oral Tablet (Desyrel)Indication s:Primary insomnia TAKE 1 TABLET AT BEDTIME 90 Tablet 1 06/14/2024 Active Amiodarone HCl 200 MG Oral Tablet (Cordarone)Indicati ons:Ventricular tachycardia (HCC) TAKE 1 TABLET IN THE MORNING AND TAKE 1 TABLET BEFORE BEDTIME 180 Tablet 3 07/07/2024 Active Atorvastatin Calcium 80 MG Oral Tablet (Lipitor)Indication s:Elevated LFTs,Dyslipidemia, goal LDL below 70 TAKE 1 TABLET EVERY DAY 90 Tablet 3 07/07/2024 Active Digoxin 125 MCG Oral Tablet (Lanoxin)Indication s:Ischemic cardiomyopathy,Hear t failure, systolic, due to CAD (HCC) Take 1 Tablet by mouth once a day on Thursday, Thursday, and Thursday only. 40 Tablet 3 07/22/2024 Active Sertraline HCl 25 MG Oral Tablet (Zoloft)Indications :Mild depression Take 1 Tablet by mouth in the morning. Take with 50mg.. 90 Tablet 2 09/15/2024 Active Sertraline HCl 25 MG Oral Tablet (Zoloft)Indications :Mild depression TAKE 1 TABLET BY MOUTH IN THE MORNING. TAKE 25 MG WITH 50 MG DAILY. 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 0 08/12/2005 ADVANCE DIRECTIVE INFORMATION 07/22/2005 Overview: no advance directive- has info Ischemic cardiomyopathy documented as of this encounter (statuses as of 09/15/2024) Resolved Problems Problem Noted Date Diagnosed Date [...] as of this encounter (statuses as of 09/15/2024) Immunizations Name Administration Dates Next Due COVID-19 [...] encounter Miscellaneous Notes * Telephone Encounter - Saqib Krause [facility] - 09/15/2024 9:23 AM EDTSigned Prescriptions: Disp Refills Sertraline HCl 25 MG Oral Tablet (Zoloft) 90 Tab*2 Sig: Take 1 Tablet by mouth in the morning. Take with 50mg..Authorizing Provider: ALEJANDRO FRY User:SAQIB KRAUSE documented in this encounter Plan of Treatment Upcoming Encounters Date Type Department Care Team (Late st Contact Info) Description 09/26/2024 11:10 AM EST Office [facility] [place] [address] [facility] [phone] Alejandro Fry DO [address] [facility] [place] [address] 09/30/2024 10:30 AM EST [facility], [place] [address] [facility] [place] [address] [facility] [facility] [address] 10/11/2024 2:30 PM EST Office Visit Cardiology, [facility] [address] [place] [address] Bang Fry, DO [address] [place] [address] 12/05/2024 10:30 AM EST Office Visit Pharmacy, [place] [address] [facility] [address] [facility] [address] [facility] [address] 03/31/2025 11:50 AM EDT Office Visit [facility], [place] [address] [facility] [phone] Alejandro Fry, DO [address] [facility] [address] Health Maintenance Due Date Last Done Comments [...] as of this encounter Visit Diagnoses Diagnosis Mild depression Depressive disorder, not elsewhere classified documented in this encounter Advance Directives * [...] Power of Attor ale? No Care Teams Auto Painter Relationship Specialty Start Date End Date Alejandro rFy DO [address] [facility] [place] [address] PCP - General 08/28/10 documented as of this encounter
--- OUTSIDE RECORDS SUMMARY | 2025-01-19 17:00 | External Medical Summary | Summary of Care ---
Author Name Unknown Organization [facility] Address [address] [facility] [address] Phone [phone] Care Team Providers Care Pilot Steam Yacht Name Role Phone Beth Mcginnis Primary Care Provider [phone] Reason for Visit * Reason Comments eRx-Medication Refill Encounter Details Date Type Department Care Team (Late st Contact Info) Description 09/19/2024 Refill Cardiology, [facility] [address] [place] [address] Ekaterina Velasco CRNP [address] [place] [address] Heart failure, systolic, due to CAD (HCC)*; Chronic heart failure with reduced ejection fraction and diastolic dysfunction (HCC); Encounter for long-term (current) use of medications Allergies No known active allergiesdocumented as of this encounter (statuses as of 09/21/2024) Medications Medication Sig Dispensed Refills Start Date End Date Status OMEGA-3 FATTY ACIDS 1000 MG OR CAPSIndications:ASC VD (arteriosclerotic cardiovascular disease) 2-3 per day 0 3 Active ASPIRIN 81 MG PO CHEWIndications:Isc hemic [...] 3 Active Lisinopril 2.5 MG Oral Tablet (Prinivil)Indicatio [...] 4 Active Finasteride 5 MG Oral Tablet (Proscar)Indication s:Nodular prostate with urinary obstruction TAKE 1 TABLET EVERY DAY 90 Tablet 1 4 Active Warfarin Sodium 10 MG Oral Tablet (Coumadin)Indicatio ns:group home current use of anticoagulant therapy,Sustained VT (ventricular [...] 4 Active Digoxin 125 MCG Oral Tablet (Lanoxin)Indication [...] 4 Active Furosemide 40 MG Oral Tablet (Lasix)Indications: Heart failure, systolic, due to CAD (HCC),Chronic heart failure with reduced ejection fraction and diastolic dysfunction (HCC) TAKE 1 TABLET TWICE DAILY 180 Tablet 1 4 Active Furosemide 40 MG Oral Tablet (Lasix)Indications: Heart failure, systolic, due to CAD (HCC),Chronic heart failure with reduced ejection fraction and diastolic dysfunction (HCC) TAKE 1 TABLET TWICE DAILY 180 Tablet 3 3 09/21/20 24 Discontinued documented as of this encounter (statuses as of 09/21/2024) Active Problems Problem Noted Date Diagnosed Date [...] implantable de fibrillator 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 or check 02/15/2007 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 0 08/12/2005 ADVANCE DIRECTIVE INFORMATION 07/22/2005 Overview: no advance directive- has info Ischemic cardiomyopathy documented as of this encounter (statuses as of 09/21/2024) Resolved Problems Problem Noted Date Diagnosed Date [...] as of this encounter (statuses as of 09/21/2024) Immunizations Name Administration Dates Next Due COVID-19 mRNA, LNP-s, No Pre serve, 2-Dose Series ([employer]) 11/19/2021,03/02/2021,02/08/2021 Pneumococcal Conjugate Vacc, 13 Valent (Prevnar) [...] encounter Miscellaneous Notes * Telephone Encounter - Paola Farris RPh - 09/21/2024 9:50 AM EDTSigned Prescriptions: Disp Refills Furosemide 40 MG Oral Tablet (Lasix) 180 Ta*1 Sig: TAKE 1 TABLETTWICE DAILYAuthorizing Provider: EKATERINA VELASCO User: PAOLA FARRIS * Telephone Encounter - Paola Farris RPh - 09/21/2024 9:32 AM EDT Per protocol, due for magnesium level. Lab ordered and can be completed with next set of labs. Thanks, Paola Farris PharmD Clinical Pharmacist [facility] 09/21/2024, 9:50 AM documented in this encounter Plan of Treatment Upcoming Encounters Date Type Department Care Team (Late st Contact Info) Description 09/26/2024 11:10 AM EST Office Visit [facility] [place] [address] [facility], [place] [phone] Beth Mcginnis, DO [address] [facility], [place] [address] 09/30/2024 10:30 AM EST Anticoagulation Pharmacy, [place] [address] [facility], [place] [address] [facility] [address] [facility], [place] [address] 10/11/2024 2:30 PM EST Office Visit Cardiology, [facility] [address] [facility] [place] [address] Bang Mcginnis DO [address] [facility] [place] [address] 12/05/2024 10:30 AM EST Office Visit Pharmacy, [place] [address] [facility], [place] [address] [facility] [address] [facility], [place] [address] 03/31/2025 11:50 AM EDT Office Visit [facility] [place] [address] [facility] [phone] Beth Mcginnis DO [address] [facility] [address] Scheduled Orders Name Type Priority Associated Diagnoses Orde r Schedule MAGNESIUM Lab Routine Heart failure, systolic, due to CAD (HCC) Chronic heart failure with reduced ejection fraction and diastolic dysfunction (HCC) Encounter for long-term (current) use of medications Expected: 10/22/2024 (Approximate), Expires: 09/21/2025 Health Maintenance Due Date Last Done Comments [...] Diagnosis Heart failure, systolic, due to CAD (HCC)- Primary Unspecified systolic heart failure Chronic heart failure [...] Power of Attor ale? No Care Teams Pilot Steam Yacht Relationship Specialty Start Date End Date Beth Mcginnis DO [address] [place] [address] PCP - General 08/28/10 documented as of this encounter
--- OUTSIDE RECORDS SUMMARY | 2025-01-19 17:00 | External Medical Summary ---
Author Name Unknown Address Unknown Organization [id number]:LABORATORY [facility] [place] - [address] [place] [id number] Laboratory Report Ordering Provider Test Date Status ABDI ALLENGERRY 09/26/2024 12:08:36 Final Multiple other species of ae robic bacteria.
Light growth normal rodney
No further workup routinely performed Observation Date Value Abnormality Reference (Units ) Status Bacteria identified in Specimen by Culture 09/26/2024 12:08:36 [id number]^STAPHY LOCOCCUS AUREUS Abnormal Final One colony Staphylococcus au reus Performing Location [facility]ATORY [facility] [place] - [address] [place] [address] Ordering Provider Test Date Status ABDI ALLENGERRY 09/26/2024 12:08:36 Final Observation Date Value Abnormality Reference (Units ) Status Clindamycin 09/26/2024 12:08:36 <=0.25 Susceptible Final Erythromycin susceptibility 09/26/2024 12:08:36 <=0.25 Susceptible Final Oxacillinsusceptibility 09/26/2024 12:08:36 <=0.25 Susceptible Final Tetracyclinesusceptibility 09/26/2024 12:08:36 <=1 Susceptible Final TMP-SMZ susceptibility 09/26/2024 12:08:36 <=10 Susceptible Final Vancomycinsusceptibility 09/26/2024 12:08:36 <=0.5 Susceptible Final Test: Culture, Wound, Super ficial, Aerobic
Specimen Source: Leg, Unspecified
Specimen Type: Superficial Wound
Specimen Date: 09/26/2024 1208
Result Date: 09/29/2024 1518
Result Status: Final result
Abnormal: Yes
Resulting Lab: [facility]ORY [facility] [place]
[address]
[place] [address]

CULTURE

One colony Staphylococcus aureus (Abnormal)

Multiple other species of aerobic bacteria.Light growth normal floraNo
further workup routinely performed

SUSCEPTIBILITY

Staphylococcus
aureus
METHOD MICROBROTH
DILUTIONS

CLINDAMYCIN <=0.25 Susceptible
ERYTHROMYCIN <=0.25 Susceptible
OXACILLIN <=0.25 Susceptible
TETRACYCLINE <=1 Susceptible
TRIMETH/SULFAMETHOXAZOLE <=10 Susceptible
VANCOMYCIN <=0.5 Susceptible

null Performing Location LABORATORY [facility] [place] - [address] [facility] [address]
--- OUTSIDE RECORDS SUMMARY | 2025-01-19 17:00 | External Medical Summary | Summary of Care ---
Author Name Unknown Organization [facility] Address [address] [place] [address] Phone [phone] Care Team Providers Care Rock Room Worker Name Role Phone Alejandro Mcginnis DO Primary Care Provider Reason for Visit * Reason Comments eRx-Medication Refill Encounter Details Date Type Department Care Team (Late st Contact Info) Description 09/19/2024 Refill [place] [address] [place] [address] Alejandro Mcginnis DO [address] [place] [address] Depression; Anger Allergies No known active allergiesdocumented as of [...] the morning. 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,Sustained VT (ventricular [...] EVERY DAY 90 Tablet 3 4 Active Sertraline HCl 50 MG Oral Tablet (Zoloft)Indications :Depression,Anger TAKE 1 TABLET EVERY DAY 90 Tablet 3 3 09/21/20 24 Discontinued documented [...] implantable de fibrillator 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 or check 02/15/2007 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 0 [...] mRNA, LNP-s, No Pre serve, 2-Dose Series ([employer]ESI[employer]) 11/19/2021,03/02/2021,02/08/2021 Pneumococcal Conjugate Vacc, 13 Valent (Prevnar) [...] encounter Miscellaneous Notes * Telephone Encounter - Nori Gamino [facility] - 09/21/2024 5:47 AM EDTSigned Prescriptions: Disp Refills Sertraline HCl 50 MG Oral Tablet (Zoloft) 90 Tab*3 Sig: TAKE 1 TABLET EVERY DAYAuthorizing Provider: ALEJANDRO MCGINNIS User: NORI GAMINO documented in this encounter Plan of Treatment Upcoming Encounters Date Type Department Care Team (Late st Contact Info) Description 09/26/2024 11:10 AM EST Office Visit [facility], [place] [address] [facility] [phone] Alejandro Mcginnis DO [address] [facility] [address] 09/30/2024 10:30 AM EST Anticoagulation Pharmacy, [place] [address] [facility] [address] [place], [facility] [address] [facility] [address] 10/11/2024 2:30 PM EST Office Visit Cardiology, [facility] [address] [place] [address] Bang Mcginnis DO [address] [place] [address] 12/05/2024 10:30 AM EST Office Visit Pharmacy, [place] [address] [facility] [address] [facility] [address] [facility] [address] 03/31/2025 11:50 AM EDT Office Visit Family Practice, [place] [address] [facility] [phone] Alejandro Mcginnis, DO [address] [facility] [address] Health Maintenance Due Date Last Done Comments [...] as of this encounter Visit Diagnoses Diagnosis Depression Depressive disorder, not elsewhere classified Anger Other signs and symptoms involving emotional state documented in this encounter Advance Directives * [...] Power of Attor ale? No Care Teams Rock Room Worker Relationship Specialty Start Date End Date Alejandro Mcginnis DO [address] [place] [address] PCP - General 08/28/10 documented as of this encounter
--- OUTSIDE RECORDS SUMMARY | 2025-01-19 17:01 | External Medical Summary | Summary of Care ---
Author Name Unknown Organization [facility] Address [address] [place] [address] Phone [phone] Care Team Providers Care Physician Extender Name Role Phone Beth Mcginnis Primary Care Provider Reason for Visit * Reason Onset Date Comments Patient Assistance Program 09/08/2024 NovoN ordisk and [place] [employer] [place] Encounter Details Date Type Department Care Team (Late st Contact Info) Description 09/08/2024 Telephone Pharmacy, [address] [address] Faye Anderson, [facility] [address] [place] [address] Patient Assistance Program (NovoNordisk an... 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 0 08/12/2005 ADVANCE DIRECTIVE INFORMATION 07/22/2005 Overview: no advance directive- has info Ischemic cardiomyopathy documented as of this encounter (statuses as of 09/08/2024) Resolved Problems Problem Noted Date Diagnosed Date [...] as of this encounter (statuses as of 09/08/2024) Immunizations Name Administration Dates Next Due COVID-19 mRNA, LNP-s, No Pre serve, 2-Dose Series ([employer]) 11/19/2021,03/02/2021,02/08/2021 Pneumococcal Conjugate Vacc, 13 Valent (Prevnar) [...] Notes * Telephone Encounter - Faye Anderson RP - 09/08/2024 7:51 AM EDT Filled out and faxed re-enrollment forms for patient to continue to get Ozempic 2mg and Degludec U100 pens from [employer] [facility]. And Farxiga 10 mg from [place] [employer] [place]. Received successful confirmation of fax. Forms scanned into chart. Note that patient also gets Novolog from [employer], but has a large supply at home at this time, and so we are not going to reapply for that just now. Faye Anderson, PharmD Clinical Pharmacist Medication Therapy Disease Management 09/08/2024, 7:51 AM documented in this encounter Plan of Treatment Upcoming Encounters Date Type Department Care Team (Late st Contact Info) Description 09/12/2024 10:30 AM EDT Office Visit [facility]], [place] [address] [facility] [place] [phone] Beth Mcginnis DO [address] [facility] [address] 09/30/2024 10:30 AM EST Anticoagulation Pharmacy, [place] [address] [address] [facility] [place] [address] [place], [facility] [address] [facility] [place] [address] 10/11/2024 2:30 PM EST Office Visit Cardiology, [facility] [address] [place] [address] Bang Mcginnis DO [address] [place] [address] 12/05/2024 10:30 AM EST Office Visit Pharmacy, [place] [address] [facility] [place] [address] [facility] [address] [facility] [place] [address] Health Maintenance Due Date Last Done Comments [...] Power of Attor ale? No Care Teams Physician Extender Relationship Specialty Start Date End Date Beth Mcginnis DO [address] [place] [address] PCP - General 08/28/10 documented as of this encounter
--- OUTSIDE RECORDS SUMMARY | 2025-01-19 17:01 | External Medical Summary ---
Author Name Unknown Address Unknown Organization K01:[facility] [place] [address] [place] [address] Laboratory Report Ordering Provider Test Date Status ROD GREENE 09/02/2024 11:10:16 Final Observation Date Value Abnormality Reference (Units ) Status TSH 09/02/2024 11:10:16 0.60 0.27-4.20 (uIU/mL) Final Performing Location LABORATORY [facility] - [address] [place] [address]
--- OUTSIDE RECORDS SUMMARY | 2025-01-19 17:01 | External Medical Summary ---
Author Name Unknown Address Unknown Organization : Laboratory Report Ordering Provider Test Date Status ARNIEMARCO 09/02/2024 10:34:33 Final Therapeutic ranges for non-o perative patients:
Prophylaxsis/treatment of DVT: (Range:2.0-3.0)
Treatment of pulmonary embolism:(Range:2.0-3.0)
Prevention of systemic embolism from:
-tissue heart valves
-acute myocardial infarction
-valvular heart disease
-atrial fibrillation
(Range: 2.0-3.0)
Mechanical prosthetic valves: (Range: 2.5-3.5) Observation Date Value Abnormality Reference (Units ) Status INR in Capillary blood by Coagulation assay 09/02/2024 10:34:33 4.8 (INR) Final Performing Location
--- OUTSIDE RECORDS SUMMARY | 2025-01-19 17:01 | External Medical Summary | Summary of Care ---
Author Name Unknown Organization [facility] Address [address] [place] [address] Phone [phone] Care Team Providers Care High School Teacher Name Role Phone Beth Mcginnis Primary Care Provider Reason for Visit * Reason Onset Date Comments Dosage Adjustment In Person (Anticoag Clinic) Diabetes Follow-Up Medication Administration 09/02/2024 Flu an d/or Pneumo Inj Encounter Details Date Type Department Care Team (Late st Contact Info) Description 09/02/2024 10:40 AM EDT Office Visit Pharmacy, [address] [address] [place] [address] [place] [address] Type 2 diabetes mellitus with hemoglobin A1c goal of less than 8.0% ([facility])*; Type 2 diabetes mellitus with diabetic nephropathy, with long-term current use of insulin ([facility]); Need for prophylactic vaccination and inoculation against influenza Allergies No known active allergiesdocumented as of this encounter (statuses as of 09/02/2024) Medications Medication Sig Dispensed Refills Start Date [...] Warfarin Sodium 10 MG Oral Tablet (Coumadin)Indications :intermediate frame tender current use of anticoagulant therapy,Sustained VT (ventricular [...] as of this encounter (statuses as of 09/02/2024) Active Problems Problem Noted Date Diagnosed Date [...] implantable de fibrillator 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 or check 02/15/2007 USP current use of anticoagulant therapy 0 08/12/2005 ADVANCE DIRECTIVE INFORMATION 07/22/2005 Overview: no advance directive- has info Ischemic cardiomyopathy documented as of this encounter (statuses as of 09/02/2024) Resolved Problems Problem Noted Date Diagnosed Date [...] as of this encounter (statuses as of 09/02/2024) Immunizations Name Administration Dates Next Due COVID-19 mRNA, LNP-s, No Pre serve, 2-Dose Series (Number 100) 11/19/2021,03/02/2021,02/08/2021 Pneumococcal Conjugate Vacc, 13 Valent (Prevnar) [...] on file documented as of this encounter Progress Notes * Faye Anderson RPh - 09/02/2024 10:54 AM EDT PRE - ADMINISTRATION DOCUMENTATION Are you experiencing any cold symptoms or fever? No Have you had Guillain-[place]ie[place] Syndrome (an illness that causes paralysis) within the last 6 weeks? No Have you had the flu shot in the past? YES Have you ever had a reaction to the flu shot? No Faye Anderson RPh, 09/02/2024 10:54 AM Immunization Administration Documentation Time Out Procedure Performed: Yes Patient Identified (Ask Name/Date of ): Yes Does the patient have a fever greater than 101 degrees today? No Patient allergic to latex? No VFC Stock: No Immunization(s) verified: Yes, Immunization Name: Flu, VIS Sheet(s) given: Yes Verified Side and Site: Yes Verified Shot(s) with Parent(s)/Patient: Yes Agree with plan as documented. I was present and in the exam room for the entirety of the visit. I spent a total of 20-29 minutes (exact time 28 mins) on the date of service in preparation, delivery, and documentation of the care provided to Shane Lynch excluding any time spent in the performance of separately billed services. Faye Anderson RPh Clinical Pharmacist 09/02/2024, 11:34 AM * Kady Sharpe, PHARM Student - 09/02/2024 10:22 AM EDT Images from the original note were not included. Medication Therapy Disease Management Clinic - Diabetes Management Progress Note Shane Lynch, identified by name and date of , is a 79 year old male being seen for diabetesmanagement/education. Patient presents for return diabetic visit. DIABETES: Current diabetic medications: Metformin 1000mg twice a day Farxiga 10 mg daily Ozempic 2 mg weekly on Fridays Tresiba 8 units daily Novolog 3 units with breakfast, 7 units with lunch, 7 units with dinner GFR 77 as of 03/02/24 Medication Injection Site: Abdomen Lifestyle: Diet: unchanged Patient reports only eating one meal per day. Glucose Review/SMBG: Readings obtained from patient device Hypoglycemia: Does your blood sugar go below 70 mg/dL? No Hyperglycemia symptoms present: polyphagia Recent Labs Units 08/09/24 1048 03/02/24 1345 11/12/23 1028 HEMOGLOBIN A1C - [facility] % 6.9* 7.6* 8.9* Recent Labs Units 03/02/24 1345 11/12/23 1028 08/28/23 0839 ESTIMATED GLOMERULAR FILTRATION RATE - [facility] mL/min 77 69 74 CREATININE - [facility] mg/dL 1.0 1.1 1.0 HYPERTENSION: Patient on ACEi/ARB: yes BP Readings from Last 3 Encounters: 03/29/24 90/50 03/02/24 118/58 11/26/23 110/60 Blood pressure at goal: yes HYPERLIPIDEMIA: Recent Labs Units 08/28/23 0839 03/20/23 1147 12/22/22 1256 LDL CHOLESTEROL (CALCULATED) - [facility] mg/dL 54 51 52 Does patient have clinical ASCVD? Yes, is patient LDL less than 55 mg/dL? Yes; patient does need updated lipid panel. HEALTH MAINTENANCE REVIEW: Health Maintenance Due Topic Date Due DXA Scan Never done Adult Wellness Visit 01/01/2019 DIG LEVEL FOR MEDICATION MONITORING YEARLY 04/27/2024 Diabetic Eye Exam 06/10/2024 Influenza Vaccine (FLU shot) (1) 07/24/2024 COVID-19 Vaccine ( season) 2024 Albumin/Creatinine Ratio 08/28/2024 B-12 08/28/2024 ASSESSMENT & PLAN: ICD-10-CM 1. Type 2 diabetes mellitus with hemoglobin A1c goal of less than 8.0% ([facility]) E11.9 2. Type 2 diabetes mellitus with diabetic nephropathy, with long-term current use of insulin ([facility]) E11.21 Z79.4 Considerations: - has PACE - uses NovoNordisk for Ozempic + Tresiba- RE-APPLIED 03/02/24 - [place] & [place] PAP for farxiga plan to re-enroll - renal function BG Readings - Blood sugars controlled. Judith device shows 89% in range Medications - Reviewed current regimen, patient is adherent to regimen. Patient is tolerating medication well and blood sugars are controlled. Diet, Exercise, Lifestyle - No significant lifestyle changes since last visit. Patient is agreeable to SMBG with FreeStyle Judith daily. Patient aware to contact clinic if any hypoglycemia before next visit. MEDICATION CHANGES: no change Diabetic Medications: Metformin 1000mg twice a day Farxiga 10 mg daily Ozempic 2 mg weekly on Fridays Tresiba 8 units daily Novolog 3 units with breakfast, 7 units with lunch, 7 units with dinner GFR 77 as of 03/02/24 HEALTH MAINTENANCE INTERVENTIONS: Labs: Up to Date Immunizations: Facilitated Administration Of: Influenza Foot Exam: Due Eye Exam: Due Annual Wellness Visit: Due FOLLOW UP: Return to clinic in 3 Months 09/30/2024 Kady Sharpe, PHARM Student Clinical Pharmacist - [place] [facility] Medication Therapy Management [facility] 09/02/2024, 10:22 AM documented in this encounter Plan of Treatment Upcoming Encounters Date Type Department Care Team (Late st Contact Info) Description 09/12/2024 10:30 AM EDT Office Visit [place] [address] [facility] [place] [phone] Beth Mcginnis DO [address] [facility] [place] [address] 09/30/2024 10:30 AM EST Anticoagulation Pharmacy, [place] [address] [facility] [place] [address] [facility] [address] [facility] [place] [address] 10/11/2024 2:30 PM EST Office Visit Cardiology, [facility] [address] [place] [address] Bang Mcginnis, [address] [place] [address] 12/05/2024 10:30 AM EST Office Visit Pharmacy, [place] [address] [place] [address] [facility] [address] [facility] [place] [address] Health Maintenance Due Date Last Done Comments [...] 02/06/2025 08/09/2024, 02/21, 11/12/2023, Additional history exists GFR 03/02/2025 03/02/2024, 10/24, 08/28/2023, Additional history exists Depression Monitoring 03/30/2025 03/30/2024 DTap/Tdap Vaccines (3 - Td or Tdap) [...] with long-term current use of insulin (HCC) Need for prophylactic vaccination and inoculation against influenza documented in this encounter Advance Directives * [...] Power of Attor ale? No Care Teams High School Teacher Relationship Specialty Start Date End Date Beth Mcginnis DO [address] [place] [address] PCP - General 08/28/10 documented as of this encounter
--- OUTSIDE RECORDS SUMMARY | 2025-01-19 17:01 | External Medical Summary | Summary of Care ---
Author Name Unknown Organization [facility] Address [address] [facility] [place] [address] Phone [phone] Care Team Providers Care Web Systems Developer Name Role Phone Beth Mcginnis Primary Care Provider Reason for Visit * Reason Comments Dosage Adjustment In Person (Anticoag Cl inic) Encounter Details Date Type Department Care Team (Latest Contact Info) Description 09/02/2024 10:30 AM EDT Anticoagulation Pharmacy, [address] [address] [facility] [address] [place] [address] Atypical atrial flutter (HCC)*; Ischemic cardiomyopathy; Anticoagulation management encounter Allergies No known active allergiesdocumented as [...] Warfarin Sodium 10 MG Oral Tablet (Coumadin)Indications :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 Medication Therapy Disease Management - Anticoagulation Patient: Shane Lynch | : 1945 Subjective Contacts Contact Date/Time Type Contact Phone/Fax 08/26/2024 05:11 AM EDT Vendor (Outgoing) Shane Lynch [phone] 08/30/2024 05:13 AM EDT Vendor (Outgoing) Shane Lynch [phone] 09/01/2024 05:13 AM EDT Vendor (Outgoing) Shane Lynch [phone] Patient-Reported Symptoms: Patient Findings Negatives: Signs/symptoms of thrombosis, Signs/symptoms of bleeding, Change in health, Change in alcohol use, Change in activity, Upcoming invasive procedure, Missed doses, Extra doses, Change in medications, Change in diet/appetite, Bruising Objective Current Warfarin Dose As of 09/02/2024 Warfarin maintenance plan: 10 mg (10 mg x 1) every Mon, Fri; 5 mg (10 mg x 0.5) all other days INR Result As of 09/02/2024 INR goal: 2.0-3.0 INR used for dosin.8 (09/02/2024) Assessment & Plan Warfarin Plan As of 09/02/2024 Full warfarin instructions: 09/02: Hold; Otherwise 10 mg every Fri; 5 mg all other days Next INR check: 09/30/2024 Repeat PT/INR in 4 week(s) Weekly dose: decreased Additional Dosing Information: Description Amiodarone 200 mg BID maintenance Kady Sharpe, PHARM Student Clinical Pharmacist 09/02/2024, 10:30 AM Agree with plan as documented. I was present and in the exam room for the entirety of the visit. I spent a total of 10-19 minutes (exact time 10 mins) on the date of service in preparation, delivery, and documentation of the care provided to Shane Lynch excluding any time spent in the performance of separately billed services. Faye Anderson [facility] Clinical Pharmacist 09/02/2024, 12:09 PM documented in this encounter Plan of Treatment Upcoming Encounters Date Type Department Care Team (Late st Contact Info) Description 09/12/2024 10:30 AM EDT Office Visit [place] [address] [place] [address] Beth Mgcinnis DO [address] [facility] [place] [address] 09/30/2024 10:30 AM EST [facility]tico[facility] Pharmacy, [place] [address] [facility] [address] [facility] [address] [place] [address] 10/11/2024 2:30 PM EST Office Visit Cardiology, [facility] [address] [facility] [place] [address] Bang Mcginnis DO [address] [place] [address] 12/05/2024 10:30 AM EST Office Visit Pharmacy, [place] [address] [facility] [address] [facility] [address] [facility] [place] [address] Health Maintenance Due Date Last Done Comments [...] Comments INR FINGERSTICK, POINT OF CARE STAT 09/02/2024 10:34 AM EDT Atypical atrial flutter (HCC) Ischemic cardiomyopathy Anticoagulation management encounter documented in this encounter Results * INR FINGERSTICK, POINT OF CARE (09/02/2024 10:34 AM EDT) Fingerstick INR 4.8 INR 12:06 PM EDT [facility]- Blood 09/02/2024 10:3 4 AM EDT 09/02/2024 12:06 PM EDT Narrative [facility]- - 09/02/2024 12:06 PM EDT Therapeutic ranges for non-operative patients: Prophylaxsis/treatment of DVT: (Range:2.0-3.0) Treatment of pulmonary embolism:(Range:2.0-3.0) Prevention of systemic embolism from: -tissue heart valves -acute myocardial infarction -valvular heart disease -atrial fibrillation (Range: 2.0-3.0) Mechanical prosthetic valves: (Range: 2.5-3.5) Faye Anderson [facility] POINT OF CARE TEST DOCKED DEVICE UNSOLICITED RESULTS [facility] [address] [place] [id number] documented in this encounter Visit Diagnoses Diagnosis Atypical atrial flutter (HCC)- Primary Atrial flutter Ischemic cardiomyopathy Other specified forms of chronic ischemic heart disease Anticoagulation management encounter Encounter for therapeutic drug monitoring documented in this encounter Advance Directives * [...] Power of Attor ale? No Care Teams Web Systems Developer Relationship Specialty Start Date End Date Beth Mcginnis DO [address] [place] [address] PCP - General 08/28/10 documented as of this encounter"
--- OUTSIDE RECORDS SUMMARY | 2025-01-19 17:01 | External Medical Summary ---
Author Name Unknown Address Unknown Organization [id number]:LABORATORY [facility] - [address] [place] [address] Laboratory Report Ordering Provider Test Date Status ROD GREENE 09/02/2024 11:10:16 Final Observation Date Value Abnormality Reference (Units ) Status Albumin 09/02/2024 11:10:16 4.0 3.8-5.0 (g/dL) Final AST (Aspartate aminotransferase) 09/02/2024 11:10:16 100 Above high normal 10-50 (U/L) Final Alk Phos 09/02/2024 11:10:16 103 35-130 (U/L) Final ALT (Alanine aminotransferase) 09/02/2024 11:10:16 133 Above high normal 10-50 (U/L) Final Bilirubin, Total 09/02/2024 11:10:16 0.3 <=1.2 (mg/dL) Final Bilirubin, Direct 09/02/2024 11:10:16 <0.2 0.0-0.3 (mg/dL) Final Protein 09/02/2024 11:10:16 6.7 6.0-8.3 (g/dL) Final Performing Location LABORATORY [facility] - [address] [place] [address]
--- OUTSIDE RECORDS SUMMARY | 2025-01-19 17:01 | External Medical Summary | Summary of Care ---
Author Name Unknown Organization [facility] Address [address] [facility] [place] [address] Phone [phone] Care Team Providers Care Graphic Designer Name Role Phone Beth Mcginnis Primary Care Provider [phone] Reason for Visit * Reason Comments Outpatient Testing Encounter Details Date Type Department Care Team (Late st Contact Info) Description 09/02/2024 11:10 AM EDT Laboratory Laboratory, [place] [address] [place] [address] [facility] [address] [place] [address] Encounter for long-term (current) use of medications; Atypical atrial flutter (HCC); Ischemic cardiomyopathy; Anticoagulation management encounter Allergies No [...] Warfarin Sodium 10 MG Oral Tablet (Coumadin)Indications :correction current use of anticoagulant therapy,Sustained VT (ventricular [...] mRNA, LNP-s, No Pre serve, 2-Dose Series ([employer]) 11/19/2021,03/02/2021,02/08/2021 Pneumococcal Conjugate Vacc, 13 Valent (Prevnar) [...] Description 09/12/2024 10:30 AM EDT Office Visit [facility], [place] [address] [facility] [phone] Beth Mcginnis DO [address] [facility] [place] [address] 09/30/2024 10:30 AM EST Anticoagulation Pharmacy, [place] [address] [facility] [address] [facility] [address] [facility] [address] 10/11/2024 2:30 PM EST Office Visit Cardiology, [facility] [address] [facility] [place] [address] Bang Mcginnis DO [address] [facility] [place] [address] 12/05/2024 10:30 AM EST Office Visit Pharmacy, [place] [address] [facility] [address] [facility] [address] [facility] [address] Pending Results Name Type Priority Associated Diagnoses Date /Time HEPATIC FUNCTION PANEL Lab Routine Encounter for long-term (current) use of medications 09/02/2024 11:10 AM EDT BASIC METABOLIC PANEL Lab Routine Encounter for long-term (current) use of medications 09/02/2024 11:10 AM EDT TSH Lab Routine Encounter for long-term (current) use of medications 09/02/2024 11:10 AM EDT PT INR Lab Routine Atypical atrial flutter (HCC) Ischemic cardiomyopathy Anticoagulation management encounter 09/02/2024 11:10 AM EDT Health Maintenance Due Date Last Done Comments DXA Scan 1945 Adult Wellness Visit 01/01/2019 01/01/2018 DIG LEVEL FOR MEDICATION MONITORING YEARLY 04/27/2024 04/27/2023, 07/03/2021 Diabetic Eye Exam 06/10/2024 06/10/2023, , 06/09/2023, Additional history exists COVID-19 Vaccine ( season) 2024 11/19/2021, 03/02/2021, 02/08/2021 Albumin/Creatinine Ratio 08/28/2024 023, 03/14/2022, 08/22/2019, Additional history exists B-12 08/28/2024 08/28/2023, 02/22, 02/27/2021, Additional history exists HbA1c 02/06/2025 08/09/2024, 04, 11/12/2023, Additional history exists GFR 03/02/2025 03/02/2024, [...] of this encounter Visit Diagnoses Diagnosis Encounter for long-term (current) use of medications Encounter for long-term (current) use of other medications Atypical atrial flutter (HCC) Atrial flutter Ischemic [...] Power of Attor ale? No Care Teams Graphic Designer Relationship Specialty Start Date End Date Beth Mcginnis DO [address] [place] [address] PCP - General 08/28/10 documented as of this encounter
--- OUTSIDE RECORDS SUMMARY | 2025-01-19 17:01 | External Medical Summary ---
Author Name Unknown Address Unknown Organization [id number]:[facility]ATORY [facility] [place] - [address] [place] [address] Laboratory Report Ordering Provider Test Date Status MARCO GAITAN 09/02/2024 11:10:16 Final Warfarin Therapy
INR: 2 .0-3.0 conventional anticoagulation
INR: 2.5- 3.5 high intensity anticoagulation Observation Date Value Abnormality Reference (Units ) Status PT 09/02/2024 11:10:16 36.2 Above high normal 11 .6-15.2 (seconds) Final INR 09/02/2024 11:10:16 3.6 Above high normal 0. 8-1.2 Final Performing Location [facility] [place] - [address] [place] [address]
--- OUTSIDE RECORDS SUMMARY | 2025-01-19 17:01 | External Medical Summary ---
Author Name Unknown Address Unknown Organization [id number]:LABORATORY [facility] [place] - [facility] [address] [facility] [place] [address] Laboratory Report Ordering Provider Test Date Status ROD GREENE 09/02/2024 11:10:16 Final Observation Date Value Abnormality Reference (Units ) Status BUN 09/02/2024 11:10:16 16 6-20 (mg/dL) Final Creatinine 09/02/2024 11:10:16 0.9 0.6-1.2 (mg/dL) Final Glomerular filtration rate/1.73 sq M.predicted [Volume Rate/Area] in Serum, Plasma or Blood by Creatinine-based formula (CKD-EPI) 09/02/2024 11:10:16 86 >=60 (mL/min) Final eGFR is calculated based on the CKD-EPI 2020 equation. Sodium 09/02/2024 11:10:16 141 135-146 (m mol/L) Final Potassium 09/02/2024 11:10:16 4.8 3.5-5.1 (m mol/L) Final Cl 09/02/2024 11:10:16 103 98-107 (mm ol/L) Final CO2 09/02/2024 11:10:16 26 22-32 (mmo l/L) Final Anion gap 09/02/2024 11:10:16 12 7-15 (mmol /L) Final Glucose 09/02/2024 11:10:16 129 Above high normal 70 -120 (mg/dL) Final Calcium 09/02/2024 11:10:16 9.5 8.4-10.2 ( mg/dL) Final Performing Location LABORATORY [facility] [place] - [address] [place] [address]
--- OUTSIDE RECORDS SUMMARY | 2025-01-19 17:02 | External Medical Summary ---
Author Name Unknown Address Unknown Organization [id number]:LABORATORY [facility] - [address] [place] [address] Laboratory Report Ordering Provider Test Date Status MARCO GAITAN 08/09/2024 10:48:21 Final Observation Date Value Abnormality Reference (Units ) Status HbA1C 08/09/2024 10:48:21 6.9 Above high normal 4. 0-5.6 (%) Final The use of HbA1c to monitor glycemic status is based on normal hemoglobin and HbA composition. This test should not be used in patients with abnormal hemoglobin that affects the half life of the red blood cell or the in vivo glycation rates. Glucose, estimated average 08/09/2024 10:48:21 151 Above high normal <126 (mg/dL) Himanshu jo Performing Location LABORATORY [facility] - [address] [place] [address]
--- OUTSIDE RECORDS SUMMARY | 2025-01-19 17:02 | External Medical Summary | Summary of Care ---
Author Name Unknown Organization [facility] Address [address] [place] [address] Phone [phone] Care Team Providers Care Buggy Runner Name Role Phone Beth Mcginnis Trip LING Primary Care Provider + [phone] Reason for Visit * Reason Comments Outpatient Testing Encounter Details Date Type Department Care Team (Late st Contact Info) Description 08/09/2024 10:50 AM EDT Laboratory Laboratory, [place] [address] [place] [address] [facility] [address] [place] [address] Elevated LFTs; Atypical atrial flutter (HCC); Ischemic cardiomyopathy; Anticoagulation management encounter; Type 2 diabetes mellitus with hemoglobin A1c goal of less than 8.0% (HCC); Type 2 diabetes mellitus with diabetic nephropathy, with long-term current use of insulin (HCC) Allergies No known active allergiesdocumented as of this encounter (statuses as of 08/09/2024) Medications Medication Sig Dispensed Refills Start Date [...] Warfarin Sodium 10 MG Oral Tablet (Coumadin)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,Sustained VT [...] as of this encounter (statuses as of 08/09/2024) Active Problems Problem Noted Date Diagnosed Date [...] as of this encounter (statuses as of 08/09/2024) Resolved Problems Problem Noted Date Diagnosed Date [...] as of this encounter (statuses as of 08/09/2024) Immunizations Name Administration Dates Next Due COVID-19 mRNA, LNP-s, No Pre serve, 2-Dose Series (play140) 11/19/2021,03/02/2021,02/08/2021 Pneumococcal Conjugate Vacc, 13 Valent (Prevnar) 03/12/2016 Pneumococcal Polysaccharide PPV23 (Pneumovax) 11/19/2018,01/29/2007 Season Influenza, Quad, PF, Adjuvanted, 65+ Yrs, IM (FLUAD) 09/26/2020 Seasonal Influenza, PF, 6 M & above, IM , (FluLaval or Fluzone) 08/31/2019,08/19/2018,09/24/2017 08/31/2020 Seasonal Influenza, Quadriva lent Hd (Fluzone Hd) 08/28/2023,08/08/2022,08/22/2021 Seasonal Influenza, Quadriva lent, No Preserve, IM 09/11/2016 Seasonal Influenza, Trivalen t, (IIV3), with Preserv, (Fluzone) 08/13/2015,09/25/2014,08/15/2013,07/25,08/20/2011,08/28/2010,08/06/20 09 09/25/2015 TDAP (age 10 and older)(Boostrix) 02/11/2018 TDAP, [...] Team (Late st Contact Info) Description 09/02/2024 10:30 AM EDT [facility] [place] [address] [facility] [address] [facility] [address] [facility] [address] 09/02/2024 10:40 AM EDT Office Visit [facility], [place] [address] [facility] [address] [facility] [address] [facility] [address] 09/12/2024 10:30 AM EDT Office Visit Family [facility], [place] [address] [facility] [phone] Beth Mcginnis, DO [address] [facility] [address] 10/11/2024 2:30 PM EST Office Visit Cardiology, [facility] [address] [place] [address] Bang Mcginnis, DO [address] [place] [address] Pending Results Name Type Priority Associated Diagnoses Date /Time HEPATIC FUNCTION PANEL Lab Routine Elevated LFTs 08/09/2024 10:48 AM EDT PT INR Lab Routine Atypical atrial flutter (HCC) Ischemic cardiomyopathy Anticoagulation management encounter 08/09/2024 10:48 AM EDT HEMOGLOBIN A1C Lab Routine Type 2 diabetes mellitus with hemoglobin A1c goal of less than 8.0% (HCC) Type 2 diabetes mellitus with diabetic nephropathy, with long-term current use of insulin (HCC) 08/09/2024 10:48 AM EDT Health Maintenance Due Date Last Done Comments DXA Scan 1945 Adult Wellness Visit 01/01/2019 01/01/2018 DIG LEVEL FOR MEDICATION MONITORING YEARLY 04/27/2024 04/27/2023, 07/03/2021 Diabetic Eye Exam 06/10/2024 06/10/2023, , 06/09/2023, Additional history exists COVID-19 Vaccine ( season) 2024 11/19/2021, 03/02/2021, 02/08/2021 Influenza Vaccine (FLU shot) (#1) 2024 08/28/2023, 08/08/2022, 08/22/2021, Additional history exists Albumin/Creatinine Ratio 08/28/2024 023, 03/14/2022, 08/22/2019, Additional history exists B-12 08/28/2024 08/28/2023, 02/22, 02/27/2021, Additional history exists HbA1c 09/01/2024 03/02/2024, 10/24, 08/28/2023, Additional history exists GFR 03/02/2025 03/02/2024, 10/24, 08/28/2023, Additional history exists Depression Monitoring 03/30/2025 03/30/2024 DTap/Tdap Vaccines (3 - Td or Tdap) 02/12/2028 02/11/2018, 03/27/2006, 11/23/1995 Pneumococcal Vaccine: 65+ Years Completed 11/19/2018, 03/12/2016, 01/29/2007 Diabetic Foot Exam Discontinued 04/15/2023, 0 07/03/2021, 07/24/2020, Additional history exists HPV (Gardasil) Vaccine Aged [...] Diagnosis Elevated LFTs Other abnormal blood chemistry Atypical atrial flutter (HCC) Atrial flutter Ischemic cardiomyopathy Other specified forms of chronic ischemic heart disease Anticoagulation management encounter Encounter for therapeutic drug monitoring Type 2 diabetes mellitus with hemoglobin A1c [...] Power of Attor ale? No Care Teams Buggy Runner Relationship Specialty Start Date End Date Beth Mcginnis DO [address] [place] [address] PCP - General 08/28/10 documented as of this encounter
--- OUTSIDE RECORDS SUMMARY | 2025-01-19 17:02 | External Medical Summary | Summary of Care ---
Author Name Unknown Organization [facility] Address [address] [facility] [address] Phone [phone] Care Team Providers Care Engine Turner Name Role Phone Beth Mcginnis Primary Care Provider Reason for Visit * Reason Onset Date Comments Pacemaker Clinic 08/26/2024 Remote transmis bri Encounter Details Date Type Department Care Team (Late st Contact Info) Description 08/26/2024 Telephone Cardiology, [facility] [address] [place] [address] [facility] 132 [place] [address] Pacemaker Clinic (Remote transmission ) Allergies No known active allergiesdocumented as of this encounter (statuses as of 08/26/2024) Medications Medication Sig Dispensed Refills Start Date [...] Warfarin Sodium 10 MG Oral Tablet (Coumadin)Indications :custodial current use of anticoagulant therapy,Sustained VT (ventricular [...] as of this encounter (statuses as of 08/26/2024) Active Problems Problem Noted Date Diagnosed Date [...] implantable de fibrillator 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 or check 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 0 08/12/2005 ADVANCE DIRECTIVE INFORMATION 07/22/2005 Overview: no advance directive- has info Ischemic cardiomyopathy documented as of this encounter (statuses as of 08/26/2024) Resolved Problems Problem Noted Date Diagnosed Date [...] as of this encounter (statuses as of 08/26/2024) Immunizations Name Administration Dates Next Due COVID-19 mRNA, LNP-s, No Pre serve, 2-Dose Series (Sunpreme) 11/19/2021,03/02/2021,02/08/2021 Pneumococcal Conjugate Vacc, 13 Valent (Prevnar) 03/12/2016 Pneumococcal Polysaccharide PPV23 (Pneumovax) 11/19/2018,01/29/2007 Season Influenza, Quad, PF, Adjuvanted, 65+ Yrs, IM (FLUAD) 09/26/2020 Seasonal Influenza Vac., MDV , IM, 0.5 mL (Fluzone) 08/13/2015,09/25/2014,08/15/2013,07/25,08/20/2011,08/28/2010,08/06/20 09 09/25/2015 Seasonal Influenza, PF, 6 M & above, [...] Miscellaneous Notes * Telephone Encounter - Jessica CheemaAMY - 08/26/2024 10:32 AM EDT Normal Remote: With Events Normal Device Function Events or Alerts: 27 Battery: 2.98V, 5.83 yrs Sensing, impedance and thresholds reviewed Programmed parameters reviewed Presenting rhythm APBiVP Heart Rate Histograms reviewed Additional Notes: Thoracic impedance monitoring: Fluid index reveals a baseline thoracic impedance indicating normal fluid status. Tachycardia: VT Stored EGMs are consistent with or suggestive of Ventricular Tachycardia Total episodes: 17 Longest episode 11 seconds Fastest rate 176bpm Tachycardia: VT Detected in Monitor Zone Sustained tachycardia event detected within programmed monitor zone Total episodes: 3 Tachycardia Rate: 133 bpm Atrial Lead Oversensing: [place] Stored EGMs are consistent with or suggestive of physiologic atrial lead oversensing Total episodes: 14 Measured value: 1mV Programmed sensitivity settin.15mV Sensitivity reprogrammed: N Noise Stored EGMs are consistent with or suggestive of motion or noise artifact overlaying the patients baseline rhythm No new clinically significant arrhythmia Total episodes: 1 Likely electrical interference Alert: Yellow A Yellow Alert was reported by the device: atrial farfield noise on RA RV leads likely electrical interference multiple episodes of VT 2 episodes of AF (AC- warfarin) 5 successful ATP therapies delivered 2 unsuccessful ATP therapies delivered Tachycardia: AF Stored EGMs are consistent with or suggestive of Atrial Fibrillation AT/AF [place]: 0% Total number of events: 2 Longest episode 5min 51sec Additional Notes: warfarin Appropriate VT Therapy: Successful Stored EGMs are consistent with or suggestive of Ventricular Tachycardia Total episodes: 17 Number of ATP therapy: 4 Number of shocks delivered: 0 Appropriate AT/AF Therapy: Successful Stored EGMs are consistent with or suggestive of appropriate Atrial ATP therapy delivered due to AT/AF Total episodes: 2 AT [place]: 0% ATP therapy: 4 Shock(s) delivered: 0 Appropriate AT/AF Therapy: Unsuccessful Stored EGMs are consistent with or suggestive of AT/AF with unsuccessful therapy Total episodes: 2 AT [place]: 0% Number of ATP therapy: 1 documented in this encounter Plan of Treatment Upcoming Encounters Date Type Department Care Team (Late st Contact Info) Description 09/02/2024 10:30 AM EDT Anticoagulation Pharmacy, [place] [address] [address] [facility], [place] [address] [facility] [address] [facility], [place] [address] 09/02/2024 10:40 AM EDT Office Visit Pharmacy, [place] [address] [address] [facility] [address] [facility] [address] [facility] [address] 09/12/2024 10:30 AM EDT Office Visit Family Practice, [place] [address] [address] [facility] [address] Beth [facility]innis DO [address] [facility] [address] 10/11/2024 2:30 PM EST Office Visit Cardiology, [facility] [address] [place] [address] Bang Mcginnis DO [address] [place] [address] Health Maintenance Due Date Last Done Comments [...] Power of Attor ale? No Care Teams Engine Turner Relationship Specialty Start Date End Date Beth Mcginnis DO [address] [place] [place] [address] PCP - General 08/28/10 documented as of this encounter
--- OUTSIDE RECORDS SUMMARY | 2025-01-19 17:02 | External Medical Summary | Summary of Care ---
Author Name Unknown Organization [facility] Address [address] [facility] [address] Phone [phone] Care Team Providers Care Corporate Analyst Name Role Phone Beth Mcginnis Primary Care Provider Reason for Visit * Reason Onset Date Comments Pacemaker Clinic 08/26/2024 Remote transmis bri Encounter Details Date Type Department Care Team (Late st Contact Info) Description 08/26/2024 Telephone Cardiology, [facility] 132 [place] [address] [facility] 132 [place] [address] Pacemaker Clinic (Remote transmission ) Allergies No known active allergiesdocumented as of this encounter (statuses as of 08/30/2024) Medications Medication Sig Dispensed Refills Start Date [...] Warfarin Sodium 10 MG Oral Tablet (Coumadin)Indications :FDC current use of anticoagulant therapy,Sustained VT (ventricular [...] as of this encounter (statuses as of 08/30/2024) Active Problems Problem Noted Date Diagnosed Date [...] de fibrillator 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 or check 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 0 08/12/2005 ADVANCE DIRECTIVE INFORMATION 07/22/2005 Overview: no advance directive- has info Ischemic cardiomyopathy documented as of this encounter (statuses as of 08/30/2024) Resolved Problems Problem Noted Date Diagnosed Date [...] as of this encounter (statuses as of 08/30/2024) Immunizations Name Administration Dates Next Due COVID-19 mRNA, LNP-s, No Pre serve, 2-Dose Series ([employer]) 11/19/2021,03/02/2021,02/08/2021 Diptheria/Tetanus (Adult) 11/23/1995 Pneumococcal Conjugate Vacc, [...] Telephone Encounter - Ekaterina Donahue CRNP - 08/30/2024 2:25 PM EDT Patient with known VT, will loop in Dr. Mcginnis as he is seeing him next to get some clarificationon this. AT this time, patient will continue his Amiodarone, Digoxin and Metoprolol succinate. Did not increase Metoprolol as he has low blood pressures. * Telephone Encounter - Jessica Cheema LPN - 08/26/2024 10:32 AM EDT Normal Remote: [...] with or suggestive of Atrial Fibrillation AT/AF [place]: 0% Total number of events: 2 Longest [...] due to AT/AF Total episodes: 2 AT [place]: 0% ATP therapy: 4 Shock(s) delivered: 0 Appropriate AT/AF Therapy: Unsuccessful Stored EGMs are consistent with or suggestive of AT/AF with unsuccessful therapy Total episodes: 2 AT [place]: 0% Number of ATP therapy: 1 documented in this encounter Plan of Treatment Upcoming Encounters Date Type Department Care Team (Late st Contact Info) Description 09/02/2024 10:30 AM EDT Anticoagulation Pharmacy, [place] [address] [facility], [place] [address] [facility] [address] [facility], [place] [address] 09/02/2024 10:40 AM EDT Office Visit Pharmacy, [place] [address] [facility], [place] [address] [facility] [address] [facility], [place] [address] 09/12/2024 10:30 AM EDT Office Visit Family Practice, [place] [address] [facility], [place] [address] Beth Mcginnis DO [address] [facility], [place] [address] 10/11/2024 2:30 PM EST Office Visit Cardiology, [address] [place] [address] Bang Mcginnis DO [address] [place] [address] Health Maintenance Due Date Last Done Comments [...] Power of Attor ale? No Care Teams Corporate Analyst Relationship Specialty Start Date End Date Beth Mcginnis DO [address] [place] [address] PCP - General 08/28/10 documented as of this encounter
--- OUTSIDE RECORDS SUMMARY | 2025-01-19 17:02 | External Medical Summary ---
Author Name Unknown Address Unknown Organization K01:[facility] - [address] [place] [address] Laboratory Report Ordering Provider Test Date Status MARCO GAITAN 08/09/2024 10:48:21 Final Warfarin Therapy
INR: 2 .0-3.0 conventional anticoagulation
INR: 2.5- 3.5 high intensity anticoagulation Observation Date Value Abnormality Reference (Units ) Status PT 08/09/2024 10:48:21 33.0 Above high normal 11 .6-15.2 (seconds) Final INR 08/09/2024 10:48:21 3.2 Above high normal 0. 8-1.2 Final Performing Location [facility] - [address] [place] [address]
--- OUTSIDE RECORDS SUMMARY | 2025-01-19 17:02 | External Medical Summary | Summary of Care ---
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,Sustained VT [...] implantable de fibrillator 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 or check 02/15/2007 detention current use of anticoagulant therapy 0 08/12/2005 [...] mRNA, LNP-s, No Pre serve, 2-Dose Series (S[employer]) 11/19/2021,03/02/2021,02/08/2021 Pneumococcal Conjugate Vacc, 13 Valent (Prevnar) [...] Description 09/02/2024 10:30 AM EDT [facility]tico[facility] Pharmacy, [place] [address] [facility] [address] [facility] [address] [facility] [address] 09/02/2024 10:40 AM EDT Office Visit Pharmacy, [place] [address] [facility] [address] [facility] [address] [facility] [address] 09/12/2024 10:30 AM EDT Office Visit Family [facility], [place] [address] [facility] [address] Beth Mcginnis, DO [address] [facility] [address] 10/11/2024 2:30 PM EST Office Visit Cardiology, [facility] [address] [place] [address] Bang Mcginnis, DO [address] [place] [address] Pending Results Name Type Priority Associated Diagnoses Date /Time HEPATIC FUNCTION PANEL Lab Routine Elevated LFTs 08/09/2024 10:48 AM EDT PT INR Lab Routine Atypical atrial flutter (HCC) Ischemic cardiomyopathy Anticoagulation management encounter 08/09/2024 10:48 AM EDT Health Maintenance Due [...] Procedure Name Priority Date/Time Associated Diagnosis Comments HEMOGLOBIN A1C Routine 08/09/2024 10:48 AM EDT Type 2 diabetes mellitus with hemoglobin A1c goal of less than 8.0% (HCC) Type 2 diabetes mellitus with diabetic nephropathy, with long-term current use of insulin (HCC) documented in this encounter Results * (ABNORMAL) HEMOGLOBIN A1C (08/09/2024 10:48 AM EDT) Hemoglobin A1C 6.9(H) 4.0 - 5.6 % 08/09/2024 3:13 PM EDT [facility] Comment:The use of HbA1c to monitor glycemic status is based on normal hemoglobin and HbA composition. This test should not be used in patients with abnormal hemoglobin that affects the half life of the red blood cell or the in vivo glycation rates. Estimated Average Glucose 151(H) <126 mg/dL 08/09/2024 3:13 PM EDT [facility] Blood Venous blood specimen / Unknown Venipuncture / Unknown 08/09/2024 10:48 AM EDT 08/09/2024 10:48 AM EDT Faye Anderson [facility] LAB BLOOD OR DERABLES [facility] [address] [place] [address] documented in this encounter Visit Diagnoses Diagnosis Elevated LFTs [...] Power of Attor ale? No Care Teams Substation Technician Relationship Specialty Start Date End Date Beth Mcginnis DO [address] [place] [address] PCP - General 08/28/10 documented as of this encounter
--- OUTSIDE RECORDS SUMMARY | 2025-01-19 17:02 | External Medical Summary | Summary of Care ---
Author Name Unknown Organization [facility] Address [address] [place] [facility] [place] [address] Phone [phone] Care Team Providers Care Ruching Machine Operator Name Role Phone LaliBeth gilbert Trip LING Primary Care Provider [phone] Reason for Visit * Reason Comments Dosage Adjustment Via Phone (anticoag Cl inic) Encounter Details Date Type Department Care Team (Latest Contact Info) Description 08/10/2024 6:00 AM EDT Anticoagulation Pharmacy, [address] [address] [facility] [address] [place] [address] Anticoagulation management encounter*; Atypical atrial flutter (HCC); Ischemic cardiomyopathy Allergies No known active allergiesdocumented as of this encounter (statuses as of 08/10/2024) Medications Medication Sig Dispensed Refills Start Date [...] as of this encounter (statuses as of 08/10/2024) Active Problems Problem Noted Date Diagnosed Date [...] as of this encounter (statuses as of 08/10/2024) Resolved Problems Problem Noted Date Diagnosed Date [...] as of this encounter (statuses as of 08/10/2024) Immunizations Name Administration Dates Next Due COVID-19 [...] of this encounter Progress Notes * Kady Sharpe PHARM Student - 08/10/2024 1:38 PM EDT Contacts Contact Date/Time Type Contact Phone/Fax 08/10/2024 01:37 PM EDT Phone (Outgoing) Shane Lynch (Self) [phone] (M) Spoke to Patient - Spoke to patients Subjective Patient Findings Negatives: Signs/symptoms of thrombosis, Signs/symptoms of bleeding, Change in health, Change in alcohol use, Change in activity, Upcoming invasive procedure, Missed doses, Extra doses, Change in medications, Change in diet/appetite, Bruising Advised patient to contact Anticoagulation Clinic if any unusual bruising or bleeding, recent illness, changes in medication, or questions/concerns. PT/INR results, Coumadin dose instructions, and next PT/INR date communicated as noted by Pharmacist: Yes KELLI Cronin Student 08/10/2024, 1:38 PM * Faye Anderson [facility] - 08/10/2024 7:47 AM EDT Images from the original note [...] Bruising Objective Current Warfarin Dose As of 08/10/2024 Warfarin maintenance plan: 10 mg (10 mg x 1) every Mon, Fri; 5 mg (10 mg x 0.5) all other days INR Result As of 08/10/2024 INR goal: 2.0-3.0 INR used for dosin.2 (08/09/2024) Assessment & Plan Warfarin Plan As of 08/10/2024 Full warfarin instructions: 08/10: Hold; Otherwise 10 mg every Mon, Fri; 5 mg all other days Next INR check: 09/02/2024 Repeat PT/INR in 4 week(s) Weekly dose: [...] time spent by another provider/QHP. Faye Anderson [facility] Clinical Pharmacist 08/10/2024, 7:48 AM documented in this encounter Plan of Treatment Upcoming Encounters Date Type Department Care Team (Late st Contact Info) Description 09/02/2024 10:30 AM EDT Anticoagulation Pharmacy, [address] [place] [address] [facility] [address] [place] [address] 09/02/2024 10:40 AM EDT Office Visit Pharmacy, [address] [place] [address] [facility] [address] [facility] [place] [address] 09/12/2024 10:30 AM EDT Office Visit Family Practice, [address], [place] [address] Beth Mcginnis DO [address] [facility], [place] [address] 10/11/2024 2:30 PM EST Office Visit Cardiology, [facility] [address] [place] [address] Bang Mcginnis DO [address] [place] [address] Health Maintenance Due Date Last Done Comments [...] 02/27/2021, Additional history exists HbA1c 02/06/2025 08/09/2024, 04/, 11/12/2023, Additional history exists GFR 03/02/2025 03/02/2024, [...] as of this encounter Visit Diagnoses Diagnosis Anticoagulation management [...] Power of Attor ale? No Care Teams Ruching Machine Operator Relationship Specialty Start Date End Date Beth Mcginnis DO [address] [place] [address] PCP - General 08/28/10 documented as of this encounter"
[2025-01-19] MEDS ORDERED: PHARMACIST DISCHARGE MED REC CONSULT PRN (17:06)
[2025-01-19] MEDS ORDERED: CARBOHYDRATES FOR HYPOGLYCEMIA PO PRN (17:06)
[2025-01-19] MEDS ORDERED: ALUMINUM/MAGNESIUM SUSP 30 ML UDC PO PRN (17:06)
[2025-01-19] MEDS ORDERED: GLUCOSE 10 TAB/TUBE PO PRN (17:06)
[2025-01-19] MEDS ORDERED: ACETAMINOPHEN 325 MG TAB PO PRN (17:06)
[2025-01-19] MEDS ORDERED: GLUCOSE 40% GEL 15 GM TUBE PO PRN (17:06)
[2025-01-19] MEDS ORDERED: GLUCAGON FOR INJ 1 MG VIAL SQ PRN (17:06)
[2025-01-19] MEDS ORDERED: DEXTROSE 50% 50 ML SYRINGE IV PRN (17:06)
[2025-01-19] MEDS ORDERED: NITROGLYCERIN SL 0.4 MG/TAB TAB SL PRN (17:06)
[2025-01-19] MEDS: INSULIN ASPART PER UNIT CHARGE SC SCH (17:55)
[2025-01-19] MEDS: WARFARIN SOD 5 MG TAB PO SCH (18:15)
[2025-01-19] MEDS: FINASTERIDE 5 MG TAB PO SCH (21:32)
[2025-01-19] MEDS: DIGOXIN 0.125 MG TAB PO SCH (21:32)
[2025-01-19] MEDS: AMIODARONE 200 MG TAB PO SCH (21:33)
[2025-01-19] MEDS: SERTRALINE HCL 50 MG TABLET PO SCH (21:33)
[2025-01-20 06:26] LABS: Basophils # (auto) 0.03 K/uL (0.00-0.20); Basophils % (auto) 0.5 %; Eosinophils # (auto) 0.27 K/uL (0.00-0.50); Eosinophils % (auto) 4.7 %; Hematocrit (blood only) 32.7 % (42.0-52.0); Immature Granulocytes # (auto) 0.01 K/uL (0.01-0.20); Immature Granulocytes % (auto) 0.2 %; Lymphocytes # (auto) 1.49 K/uL (1.20-3.40); Lymphocytes % (auto) 25.7 %; Mean Corpuscular Hemoglobin 29.3 pg (25.0-34.0); Mean Corpuscular Hgb Conc 33.6 g/dL (32.0-36.0); Mean Platelet Volume 9.4 fL (9.4-12.4); Monocytes # (auto) 0.69 K/uL (0.11-0.59); Monocytes % (auto) 11.9 %; Neutrophils # (auto) 3.31 K/uL (1.40-6.50); Platelet Count 189 K/uL (130-400); RDW Coefficient of Variation 15.5 % (11.5-14.5); RDW Standard Deviation 48.7 fL (36.4-46.3); Red Blood Count 3.76 M/uL (4.70-6.10)
[2025-01-20 06:31] LABS: Calcium 7.6 mg/dl (8.6-10.3); Chol HDL Ratio 3.6 (0-5); Creatinine Clr Calc Pharmacy 60.3 ml/min; Magnesium 2.3 mg/dl (1.7-2.4); Potassium 3.1 mmol/L (3.5-5.1)
[2025-01-20 06:43] LABS: INR 1.9 (0.9-1.1); Prothrombin Time 19.9 Seconds (9.0-12.0)
[2025-01-20 07:24] LABS: Estimated Average Glucose 151 mg/dl; Hemoglobin A1C 6.9 % (4.5-5.6)
[2025-01-20] MEDS: FUROSEMIDE 40 MG/4 ML VIAL IV SCH (08:03)
[2025-01-20] MEDS: CEROVITE ADV FORMULA TAB PO SCH (08:04)
[2025-01-20] MEDS: ATORVASTATIN 40 MG TAB PO SCH (08:04)
[2025-01-20] MEDS: ASPIRIN 81 MG ECTAB PO SCH (08:04)
[2025-01-20] MEDS: METOPROLOL SUCC 25MG EXT REL TAB PO SCH (08:04)
[2025-01-20] MEDS: LANTUS PER UNIT CHARGE SC SCH (08:47)
[2025-01-20] MEDS: POTASSIUM CHLORIDE CRTAB 20 MEQ TABCR PO SCH (08:48)
--- NOTE | 2025-01-20 08:51 | Cardiology Consultation ---
Date of Consultation January 20, 2025 Assessment & Plan (1) Stroke-like episode: (2) AMS (altered mental status): (3) Chronic systolic CHF (congestive heart failure): (4) Paroxysmal atrial flutter: (5) ICD (implantable cardioverter-defibrillator) in place: (6) Hypokalemia: (7) Ventricular tachycardia: Plan Patient admitted with stroke like symptoms, difficulty standing and aphasia last about 1-[address] was negative on admission. Brain MRI ordered but unfortunately patient's one ICD lead is non compatible with MRI (Malcolm RV lead) Repeat head Ct was negative this morning. Symptoms resolved. INR on admission was 2.0. 1.9 this morning. Give one additional dose of 2.5 mg this morning. Then resume home dose of 5 mg and 10 mg alternatively tonight. ICD interrogated on admission. Episodes of non sustained VT, most recently on 01/05 resolved with ATP pacing. History of non sustained Vt. Continue amiodarone 200 mg BID and Metoprolol History of PAF - no sustained episodes recently. continue coumadin, digoxin and metoprolol Check digoxin level. Chronic HFrEF -appears euvolemic this morning -Echo with stable findings of LVEF 20-25% GDMT's have been limited in the past due to hypotension. -continue current oral/home medications Hypokalemia - supplement potassium and recheck. No further cardiac testing warranted. Case discussed with Dr. Villanueva. I spent a total of 60 minutes on the date of service in preparation, delivery, and documentation of the care provided to this patient, excluding any time spent in the performance of separately billed services. Grace Jones PA-C Department of Cardiology, [facility] This chart was completed in part utilizing Speech Voice Recognition Software. Grammatical errors, random word insertions, pronoun errors, and incomplete sentences are an occasional consequence of this system due to software limitations, ambient noise, and hardware issues. Any formal questions or concerns about the content, text, or information contained within the body of this dictation should be directly addressed to the provider for clarification. Supervising Physician Co-Signing Physician Notes Patient seen and examined personally. Full assessment plan as well outlined by advanced provider as above. 79-year-old male with complex cardiac history admitted following acute neurologic symptoms with resolved. No acute cardiac concerns other than findings as above mild hypokalemia and subtherapeutic INR. Device interrogation reveals 1 run of nonsustained ventricular tachycardia mid December. No recent arrhythmia Recommendations: No indications for increase in antiarrhythmic therapy. Optimize electrolytes and anticoagulation I spent a total of 20 minutes on the date of service in preparation, delivery, and documentation of the care provided to this patient, excluding any time spent in the performance of separately billed services. History of Present Illness Reason for Consultation: History of VT Requesting Physician: [facility] Attending Physician: Dr. Villanueva History of Present Illness Patient is a complex 79 year old male known to [facility] - Dr. Bush/Dr. Cortez - presenting to [facility] with weakness, inability to stand and possible difficulty word finding and with speech, concerns for stroke. Brought to ER via EMS. Apparently EMS arrived, patient was awake but non verbal. Patient recalls being able to understand everyone and everything around him but felt he could not communicate. he denied chest pain or SOB. Upon arrival to ER, Head CT was unremarkable. INR therapeutic at 2.0. EKG demonstrated paced rhythm. ICD interrogation completed which demonstrated short runs of non sustained VT in Nov and Dec with one episode terminated with ATP pacing. No shocks. No arrhythmias to correlate with his symptoms yesterday. Potassium was low on admission and supplemented. Remains low today. While in the ER, patient reports his symptoms started to resolve. At time of consult this morning, patient resting at side of bed. Feeling well. He reports he had significant edema yesterday, but now resolved. No recurrent weakness or difficulty with speech. He voices no concerns today. He was to have a brain MRI, but his ICD is not compatible due to prior [place] RV lead. Confirmed with [employer] rep. History includes: Atrial flutter (atypical) s/p DCCV but did not hold; on Coumadin and amiodarone [id number] 5 (age, CHF, CAD, DM, HTN); s/p AVN ablation 03/25/2021 ICM s/p ICD 01/2007 gent change 02/27/2016 (Malcolm ICD lead) s/p upgrade to BiV IC D 09/19/2020 LBBB Chronic heart failure with reduced EF and diastolic dysfunction, NYHA Class II Sinus bradycardia DM VT/VF s/p ICD shock in 01/2013; most recently 10/2024 one responded to ATP other did not and resolved on its own CAD s/p CABGx3 in 1997 History of LV apical thrombus has been on coumadin since HTN HLD Allergies Allergy/AdvReac Type Severity Reaction Status Date / Time No Known Allergies Allergy Unknown Verified 01/12/24 13:20 Home Medications Medication Instructions Recorded Confirmed Type PreserVision AREDS-2 1 tab PO BID 08/10/23 01/19/25 History aspirin 81 mg tablet,delayed 81 mg PO QAM 08/10/23 01/19/25 History release atorvastatin 80 mg tablet 80 mg PO QAM 08/10/23 01/19/25 History digoxin 125 mcg (0.125 mg) tablet 125 mcg PO HS 08/10/23 01/19/25 History finasteride 5 mg tablet 5 mg PO HS 08/10/23 01/19/25 History furosemide 40 mg tablet 80 mg PO QAM 08/10/23 01/19/25 History insulin degludec 100 unit/mL (3 10 unit subcut QAM 08/10/23 01/19/25 History mL) subcutaneous pen (Tresiba FlexTouch U-100 insulin) metformin 1,000 mg tablet 1,000 mg PO BID 08/10/23 01/19/25 History metoprolol succinate 50 mg 25 mg PO QAM 08/10/23 01/19/25 History tablet,extended release 24 hr semaglutide 1 mg/dose (4 mg/3 mL) 1 mg subcut Q7D 08/10/23 01/19/25 History subcutaneous pen injector (Ozempic) sertraline 50 mg tablet 50 mg PO HS 08/10/23 01/19/25 History warfarin 10 mg tablet 5 mg PO UD 08/10/23 01/19/25 History amiodarone 200 mg tablet 200 mg PO BID #60 tabs 08/12/23 01/19/25 Rx dapagliflozin propanediol 10 mg 10 mg PO QAM 01/11/24 01/19/25 History tablet (Farxiga) Patient History Medical History History of cardioversion 2020, [facility] Hx of angiography 12/2023, [facility] LBBB (left bundle branch block) Follows with dr. bush, s Apical mural thrombus History of- on chronic Coumadin Depression Anxiety CAD (coronary artery disease) S/p 3 vessel bypass 1997 On anticoagulant therapy warfarin daily Myocardial Infarction x3--last 1997--follows with Dr. Bang Bush Hyperlipidemia Surgical History History of amputation of great toe bilateral History of surgery left leg vein removed for bypass History of carpal tunnel surgery of right wrist History of colonoscopy History of appendectomy History of tonsillectomy and adenoidectomy History of bilateral cataract extraction [place] of cardiac [place] x1[place] [facility] [place], [place]G History of implantable cardioverter-defibrillator (ICD) placement inserted 01/2007, replaced 02/2016, upgraded to BiV ICD on 09/19/20--[employer] S/P [place] [facility] [place] Family History Other No family history of adverse response to anesthesia Social History Smoking Status: Never smoker Tobacco Type: Cigarettes Second Hand Exposure: Yes ( smokes); Do You Dip or Chew Tobacco: Yes (1 can/4-5 days; advised); Hx Alcohol Use: Yes Alcohol type: beer Alcohol Intake Frequency: Monthly or Less Hx Substance Use: No Preferred Language: Nigerian Communication Ability: Effective Visual Impairment: Limited Hearing Ability: Hard of Hearing [employer] Required: No Beliefs That Will Affect Care: None marital status: Current Living Situation: Spouse Other Information That Helps Us Care for You: No Feels Safe at Home: Yes Safety Concerns: Feels Safe At This Time Diet: regular Assistive Devices: Cane and Walker Review of Systems Review of Systems: All systems reviewed & are unremarkable except as noted in HPI & below Physical Exam Constitutional: WD/WN, vitals as above well developed; no acute distress Neck: trachea midline, no thyromegaly Respiratory: normal respiratory effort, lungs clear to auscultation Cardiovascular: Rate/Rhythm: regular rate and regular rhythm Heart Sounds: + murmur (I/ systolic murmur) Vessels: no JVD Extremities: no edema Gastrointestinal (Abdomen): normal bowel sounds, soft, nontender, no hepatosplenomegaly Neurologic: PERRL, EOMI, accommodation nl, no face palsy, no dysarthria Results & Data Vital Signs (Past 12 Hours) Vital Signs Temp Pulse Pulse Resp BP Pulse Ox O2 Del Method 01/20/25 07:58 36.4 C L 74 19 111/60 95 Room Air 01/20/25 04:20 36.4 C L 71 18 108/62 97 Room Air 01/19/25 23:49 73 01/19/25 23:24 36.5 C 73 18 106/65 96 Room Air 01/19/25 22:34 CPAP 01/19/25 21:32 70 Laboratory Results Cardiac Enzymes 01/19/25 01/19/25 Range/Units 12:00 14:17 AST TNP 43 H Troponin I High Sens 18.1 17.5 (0-20) pg/ml Coagulation 01/19/25 01/20/25 Range/Units 16:16 05:51 PT 20.8 H 19.9 H (9.0-12.0) Seconds Lipids 01/20/25 Range/Units 05:51 Triglycerides 143 (0-150) mg/dl Cholesterol 120 (0-200) mg/dl HDL Cholesterol 33 mg/dl Cholesterol/HDL Ratio 3.6 (0-5) CBC 01/19/25 01/20/25 Range/Units 12:00 05:51 WBC 6.44 5.80 (4.8-10.8) K/ul RBC 4.02 L 3.76 L (4.70-6.10) M/uL Hgb 11.7 L 11.0 L (14.0-18.0) g/dl Hct 35.0 L 32.7 L (42.0-52.0) % Plt Count 198 189 (130-400) K/uL Neut # (Auto) 4.50 3.31 (1.40-6.50) K/uL Lymph # (Auto) 1.19 L 1.49 (1.20-3.40) K/uL Benton # (Auto) 0.55 0.69 H (0.11-0.59) K/uL Eos # (Auto) 0.15 0.27 (0.00-0.50) K/uL Baso # (Auto) 0.03 0.03 (0.00-0.20) K/uL Comprehensive Metabolic Panel 01/19/25 01/19/25 01/20/25 Range/Units 12:00 14:17 05:51 Sodium 140 141 (136-145) mmol/L Potassium TNP 3.3 L 3.1 L Chloride 104 104 (98-107) mmol/L Carbon Dioxide 26 31 (21-32) mmol/L BUN 19 17 (6-23) mg/dl Creatinine 1.00 1.06 (0.6-1.4) mg/dl Glucose 120 H 139 H (70-99(Fasting)) mg/dl Calcium 8.5 L 7.6 L (8.6-10.3) mg/dl AST TNP 43 H ALT 50 (7-52) U/L Alkaline Phosphatase 72 (34-104) U/L Total Protein 7.2 (6.0-8.3) gm/dl Albumin 3.8 (3.4-5.0) gm/dl Intake and Output 01/19/25 01/20/25 01/20/25 22:59 06:59 14:59 Intake Total 733.333 / 2153.333 420 / 2153.333 Output Total 901 / 1151 250 / 1151 Balance -167.667 / 1002.333 170 / 1002.333 Intake: IV 283.333 / 1383.333 100 / 1383.333 Magnesium Sulfate / D5w 1 gm In 283.333 / 383.333 100 / 383.333 100 ml @ 50 mls/hr IV Q2H MAGDALENE Rx#:[id number] Oral 450 / 770 320 / 770 Output: Urine 900 / 1150 250 / 1150 # Bowel Movements / Other: Weight 83.9 kg 82.9 kg Weight Measurement Method Stated by Patient Built in [facility] Diagnostic Findings Telemetry reviewed: Dual pacing in the 60-70's. Occ PVC. No arrhythmias since admission. EKG reviewed from admission: dual chamber paced with occ PVC Pacemaker summary report reviewed- scanned to chart Echo reviewed: LV is severely dilated Mild concentric LVH Severe global hypokinesis wiht thinning and scarring of the anterior, posterior and inferoseptal nielson. LVEF 20-25% Diastolic dysfunction, grade II aortic valve sclerosis moderate without stenosis Mild MR Compared with prior echo in 07/2023 - LV systolic function has improved slightly Chest X-Ray 01/19/25 11:56 XR chest 1V portable CLINICAL HISTORY: Chest pain, nonspecific COMPARISON STUDY: 05/06/2023 FINDINGS: Stable CABG and pacemaker. Stable cardiomegaly without pulmonary vascular congestion. No effusion, consolidation, or pneumothorax. IMPRESSION: No acute findings. Head CT 01/20/25 08:04 CT head/brain wo con CLINICAL HISTORY: follow up CT for stroke, MRI not compatible. TECHNIQUE: Multiple axial CT images of the head were obtained without contrast. A dose lowering technique was utilized adhering to the principles of ALARA. CT DOSE: 688.24 mGy.cm COMPARISON: 01/19/2025. FINDINGS: no intracranial hemorrhage seen. No mass effect, midline shift, or hydrocephalus. Stable mild chronic small vessel ischemic changes. No skull fracture seen. IMPRESSION: No acute findings. Medications Administered Current Inpatient Medications Acetaminophen (Acetaminophen 325 Mg Tab) 650 mg PO Q4H PRN PRN Reason: Pain or Fever Stop: 02/18/25 17:05 Al Hydrox/Mg Hydrox/Simethicone (Aluminum/Magnesium Susp 30 Ml Udc) 15 ml PO Q4H PRN PRN Reason: Dyspepsia Stop: 02/18/25 17:05 Amiodarone HCl (Amiodarone 200 Mg Tab) 200 mg PO BID [facility] Stop: 02/18/25 20:59 Last Admin: 01/20/25 08:04 Dose: 200 mg Amoxicillin/Clavulanate Potassium (Amoxicillin/Clavulanate 875 Mg Tab) 1 tab PO BIDM [facility]; Protocol Stop: 01/27/25 09:34 Aspirin (Aspirin 81 Mg Ectab) [facility] [place] [facility] Stop: 02/19/25 08:59 Last Admin: 01/20/25 08:04 Dose: 81 mg Atorvastatin Calcium (Atorvastatin 40 Mg Tab) 80 mg PO QAM [facility] Stop: 02/19/25 08:59 Last Admin: 01/20/25 08:04 Dose: 80 mg Dextrose (Dextrose 50% 50 Ml Syringe) 25 - 50 ml IV UD PRN; Protocol PRN Reason: Hypoglycemia Protocol Stop: 02/18/25 17:05 Digoxin (Digoxin 0.125 Mg Tab) 0.125 mg PO HS [facility] Stop: 02/18/25 20:59 Last Admin: 01/19/25 21:32 Dose: 0.125 mg Doxycycline Hyclate (Doxycycline Hyclate 100 Mg Cap) 100 mg PO BID [facility] Stop: 01/27/25 09:44 Finasteride (Finasteride 5 Mg Tab) 5 mg PO HS [facility] Stop: 02/18/25 20:59 Last Admin: 01/19/25 21:32 Dose: 5 mg Furosemide (Furosemide 40 Mg/4 Ml Vial) 40 mg IV [id number] [facility] Stop: 02/19/25 06:59 Last Admin: 01/20/25 08:03 Dose: 40 mg Glucagon (Glucagon For Inj 1 Mg Vial) 1 mg SQ UD PRN; Protocol PRN Reason: Hypoglycemia Protocol Stop: 02/18/25 17:05 Glucose (Glucose 40% Gel 15 Gm Tube) 15 - 30 gm PO UD PRN; Protocol PRN Reason: Hypoglycemia Protocol Stop: 02/18/25 17:05 Glucose (Glucose 10 Tab/Tube) 4 - 8 tab PO UD PRN; Protocol PRN Reason: Hypoglycemia Protocol Stop: 02/18/25 17:05 Insulin Aspart (Insulin Aspart Per Unit Charge) 0 units SC ACHS [facility] Stop: 02/18/25 17:05 Last Admin: 01/20/25 08:47 Dose: 4 units Insulin Glargine (Lantus Per Unit Charge) 10 units SC QAM [facility] Stop: 02/19/25 08:59 Last Admin: 01/20/25 08:47 Dose: 10 units Metoprolol Succinate (Metoprolol Succ 25mg Ext Rel Tab) 25 mg PO QAM [facility] Stop: 02/19/25 08:59 Last Admin: 01/20/25 08:04 Dose: 25 mg Miscellaneous (Carbohydrates For Hypoglycemia ) 15 - 30 gm PO UD PRN PRN Reason: Hypoglycemia Protocol Stop: 02/18/25 17:05 Miscellaneous Information (Pharmacist Discharge Med Rec Consult) 1 each N/A UD PRN PRN Reason: Consult Stop: 02/18/25 17:05 Multivitamins/Minerals (Cerovite Adv Formula Tab) 1 tab PO QAM [facility] Stop: 02/19/25 08:59 Last Admin: 01/20/25 08:04 Dose: 1 tab Nitroglycerin (Nitroglycerin Sl 0.4 Mg/Tab Tab) 0.4 mg SL Q5M PRN PRN Reason: Chest Pain Stop: 02/18/25 17:05 Potassium Chloride (Potassium Chloride Crtab 20 Meq Tabcr) 40 meq PO BID [facility] Stop: 02/19/25 08:59 Last Admin: 01/20/25 08:48 Dose: 40 meq Sertraline HCl (Sertraline Hcl 50 Mg Tablet) 50 mg PO HS [facility] Stop: 02/18/25 20:59 Last Admin: 01/19/25 21:33 Dose: 50 mg Warfarin Sodium (Warfarin Sod 5 Mg Tab) 5 mg PO [id number]@1600 [facility] Stop: 02/18/25 17:05 Last Admin: 01/19/25 18:15 Dose: 5 mg Warfarin Sodium (Warfarin Sod 5 Mg Tab) 10 mg PO Mo@1600 [facility] Stop: 02/22/25 15:59 (2) AMS (altered mental status) Altered mental status type: unspecified Qualified Code(s): R41.82 - Altered mental status, unspecified
--- NOTE | 2025-01-20 09:17 | CT Scan Report ---
CT head/brain wo con CLINICAL HISTORY: follow up CT for stroke, MRI not compatible. TECHNIQUE: Multiple axial CT images of the head were obtained without contrast. A dose lowering tech nique was utilized adhering to the principles of ALARA. CT DOSE: 688.24 mGy.cm COMPARISON: 01/19/2025. FINDINGS: no intracranial hemorrhage seen. No mass effect, midline shift, or hydrocephalus. Stable mi ld chronic small vessel ischemic changes. No skull fracture seen. IMPRESSION: No acute findings. ACT 112: Negative or not required by law. The above report was generated using voice recognition software. It may contain grammatical, syntax o r spelling errors. Electronically signed by: Ari Kimbrough M.D. 01/20/2025 9:16 AM
[2025-01-20] MEDS: AMOXICILLIN/CLAVULANATE 875 MG TAB PO SCH (11:15)
[2025-01-20] MEDS: WARFARIN SOD 2.5 MG TAB PO ONE (11:15)
[2025-01-20] MEDS: DOXYCYCLINE HYCLATE 100 MG CAP PO SCH (11:15)
--- NOTE | 2025-01-20 12:13 | Neurology Consultation ---
Date of Consultation January 20, 2025 Assessment & Plan (1) Stroke-like episode: Recommend continued stroke work up to include the following: CTA head & neck Echocardiogram as part of complete stroke workup Continue frequent neurological assessments Obtain stat CT brain without contrast for any acute neurological decline Continue to monitor/control blood pressure & blood glucose Continue to monitor telemetry closely Continue to monitor renal and hepatic function, keep euvolemic Metabolic workup should include hgbA1c, fasting lipids Agree with continued full anticoagulation Monitor for s/s of hemorrhage Recommend continue ASA and high dose statin therapy indefinitely if tolerated PT/OT/SLT to eval and treat Provide continuous positive airway pressure mask at times of sleep Telehealth Consultation Telehealth Information Telehealth Information: I performed this visit using a real-time telehealth connection between my location and the patients location ([facility]). After connec ting through interactive tele-video, patient was identified by name and date of and/or wristband check.Patient (or authorized healthcare software support representative) was informed that this was a telemedicine visit and it was being conducted confidentially over secure lines. My office door was closed and no one else was present in the room with me.Patient (or authorized healthcare software support representative) provided consent to proceed with the visit, expressed an understanding of privacy and security of the telemedicine visit, and gave permission to have a hospital software support representative in the room in order to assist with the visit and to conduct portions of the visit, as needed. I informed the patient (or authorized healthcare software support representative) that I reviewed their record and presented the opportunity for them to ask any questions regarding the visit today. The patient agreed to participate. History of Present Illness Reason for Consultation: Stroke like symptoms Requesting Physician: Dr Allison Attending Physician: Ga Allison MD History of Present Illness 79yo left handed male with significant cardiac hx including arrhythmia and HFrEF has implanted pacer device, reportedly not compatible with MRI and also has significant hx of ADOLPH HTN hyperlipidemia CAD and LV thrombus remains on full anticoagulation, presented with episode of confusion/possible aphasia. he has been seen by cardiology and has pacer interrogated. He reportedly has a couple hours of ongoing word finding difficulty/ trouble answering questions. He noted severe weakness when trying to stand from sitting position. Denies trauma or full syncope. He has undergone CT brain without contrast, personally reviewed, revealing no overt evidence of hemorrhage. He has also undergone repeat CT brain without contrast without overt evidence of acute intracranial pathology. I have performed televideo consultation. He is awake, able to able to answer all questions appropriately, name objects on televideo monitor, repeat phrases and perform complex/embedded commands without deficit. Neurological exam is non lateralizing/nonfocal in terms of motor strength and coordination. Allergies Allergy/AdvReac Type Severity Reaction Status Date / Time No Known Allergies Allergy Unknown Verified 01/12/24 13:20 Home Medications Medication Instructions Recorded Confirmed Type PreserVision AREDS-2 1 tab PO BID 08/10/23 01/19/25 History aspirin 81 mg tablet,delayed 81 mg PO QAM 08/10/23 01/19/25 History release atorvastatin 80 mg tablet 80 mg PO QAM 08/10/23 01/19/25 History digoxin 125 mcg (0.125 mg) tablet 125 mcg PO HS 08/10/23 01/19/25 History finasteride 5 mg tablet 5 mg PO HS 08/10/23 01/19/25 History furosemide 40 mg tablet 80 mg PO QAM 08/10/23 01/19/25 History insulin degludec 100 unit/mL (3 10 unit subcut QAM 08/10/23 01/19/25 History mL) subcutaneous pen (Tresiba FlexTouch U-100 insulin) metformin 1,000 mg tablet 1,000 mg PO BID 08/10/23 01/19/25 History metoprolol succinate 50 mg 25 mg PO QAM 08/10/23 01/19/25 History tablet,extended release 24 hr semaglutide 1 mg/dose (4 mg/3 mL) 1 mg subcut Q7D 08/10/23 01/19/25 History subcutaneous pen injector (Ozempic) sertraline 50 mg tablet 50 mg PO HS 08/10/23 01/19/25 History warfarin 10 mg tablet 5 mg PO UD 08/10/23 01/19/25 History amiodarone 200 mg tablet 200 mg PO BID #60 tabs 08/12/23 01/19/25 Rx dapagliflozin propanediol 10 mg 10 mg PO QAM 01/11/24 01/19/25 History tablet (Farxiga) Patient History Medical History History of cardioversion 2020, [facility] Hx of angiography 12/2023, [facility] LBBB (left bundle branch block) Follows with dr. bush s Apical mural thrombus History of- on chronic Coumadin Depression Anxiety CAD (coronary artery disease) S/p 3 vessel bypass 1997 On anticoagulant therapy warfarin daily Myocardial Infarction x3--last 1997--follows with Dr. Bang Bush Hyperlipidemia Surgical History History of amputation of great toe bilateral History of surgery left leg vein removed for bypass History of carpal tunnel surgery of right wrist History of colonoscopy History of appendectomy History of tonsillectomy and adenoidectomy History of bilateral cataract extraction History of cardiac cath x1[place] [facility] [place], [place]G History of implantable cardioverter-defibrillator (ICD) placement inserted 01/2007, replaced 02/2016, upgraded to BiV ICD on 09/19/20--[employer] S/P triple vessel [place] [facility] [place] Family History Other No family history of adverse response to anesthesia Social History Smoking Status: Never smoker Tobacco Type: Cigarettes Second Hand Exposure: Yes ( smokes); Do You Dip or Chew Tobacco: Yes (1 can/4-5 days; advised); Hx Alcohol Use: Yes Alcohol type: beer Alcohol Intake Frequency: Monthly or Less Hx Substance Use: No Preferred Language: Slovenian Communication Ability: Effective Visual Impairment: Limited Hearing Ability: Hard of Hearing Pulverizer Operator Required: No Beliefs That Will Affect Care: None marital status: Current Living Situation: Spouse Other Information That Helps Us Care for You: No Feels Safe at Home: Yes Safety Concerns: Feels Safe At This Time Diet: regular Assistive Devices: Cane and Walker Physical Exam Neurological Examination: Mental Status: Awake and alert. Oriented to self and most of situation Fluency naming repetition and comprehension appear grossly intact. Affect remains appropriate. CN testing: I: Deferred II:Reports no changes in visual acuity III/IV/: No evidence of gaze preference, hippus, nystagmus or roving eye movements V: Facial sensation reportedly grossly intact to light touch bilaterally VII: Facial movements appear without evidence of asymmetry VIII: Hearing appears diminished to loud voice bilaterally IX/X: Palate is unable to be accurately visualized via telemedicine XI: Shoulder shrug appears symmetric/ grossly intact bilaterally XII: Tongue protrudes midline without evidence of biting Motor exam: Strength appears grossly intact/symmetric in all extremities Sensory: Sensation is reportedly grossly intact throughout Coordination: No apparent evidence of dysmetria or dysdiadochokinesia Reflexes: Deferred Gait: Deferred Results & Data Vital Signs (Past 12 Hours) Vital Signs Temp Pulse Resp BP Pulse Ox O2 Del Method 01/20/25 11:22 36.4 C L 72 19 108/68 97 Room Air 01/20/25 07:58 36.4 C L 74 19 111/60 95 Room Air 01/20/25 04:20 36.4 C L 71 18 108/62 97 Room Air Laboratory Results Abnormal lab results 01/19/25 01/19/25 01/19/25 Range/Units 12:00 12:15 14:17 RBC 4.02 L (4.70-6.10) M/uL Hgb 11.7 L (14.0-18.0) g/dl Hct 35.0 L (42.0-52.0) % RDW Std Deviation 48.1 H (36.4-46.3) fL RDW Coeff of Ade 15.2 H (11.5-14.5) % Lymph # (Auto) 1.19 L (1.20-3.40) K/uL Ashe # (Auto) (0.11-0.59) K/uL PT (9.0-12.0) Seconds INR (0.9-1.1) Potassium 3.3 L (3.5-5.1) mmol/L Glucose 120 H (70-99(Fasting)) mg/dl POC Glucose (70-99) mg/dl Hemoglobin A1c (4.5-5.6) % Calcium 8.5 L (8.6-10.3) mg/dl AST 43 H (13-39) U/L Urine Glucose (UA) 3+ H (Negative) Digoxin (0.8-2.0) ng/ml 01/19/25 01/19/25 01/19/25 Range/Units 16:16 16:56 21:36 RBC (4.70-6.10) M/uL Hgb (14.0-18.0) g/dl Hct (42.0-52.0) % RDW Std Deviation (36.4-46.3) fL RDW Coeff of Ade (11.5-14.5) % Lymph # (Auto) (1.20-3.40) K/uL Ashe # (Auto) (0.11-0.59) K/uL PT 20.8 H (9.0-12.0) Seconds INR 2.0 H (0.9-1.1) Potassium (3.5-5.1) mmol/L Glucose (70-99(Fasting)) mg/dl POC Glucose 176 H 179 H (70-99) mg/dl Hemoglobin A1c (4.5-5.6) % Calcium (8.6-10.3) mg/dl AST (13-39) U/L Urine Glucose (UA) (Negative) Digoxin (0.8-2.0) ng/ml 01/20/25 01/20/25 01/20/25 Range/Units 05:51 07:55 10:13 RBC 3.76 L (4.70-6.10) M/uL Hgb 11.0 L (14.0-18.0) g/dl Hct 32.7 L (42.0-52.0) % RDW Std Deviation 48.7 H (36.4-46.3) fL RDW Coeff of Ade 15.5 H (11.5-14.5) % Lymph # (Auto) (1.20-3.40) K/uL Ashe # (Auto) 0.69 H (0.11-0.59) K/uL PT 19.9 H (9.0-12.0) Seconds INR 1.9 H (0.9-1.1) Potassium 3.1 L (3.5-5.1) mmol/L Glucose 139 H (70-99(Fasting)) mg/dl POC Glucose 151 H (70-99) mg/dl Hemoglobin A1c 6.9 H (4.5-5.6) % Calcium 7.6 L (8.6-10.3) mg/dl AST (13-39) U/L Urine Glucose (UA) (Negative) Digoxin 0.4 L (0.8-2.0) ng/ml Diagnostic Findings Cervical Spine CT 01/19/25 11:55 CT cervical spine wo con CLINICAL HISTORY: 79 years-old Male with fall. Acute neck pain status post fall COMPARISON: Head CT of same day TECHNIQUE: Multiple axial CT images of the cervical spine were obtained without contrast. A dose lowering technique was utilized adhering to the principles of ALARA. FINDINGS: Multilevel degenerative changes include moderate to severe decubitus space narrowing within the lower cervical and upper thoracic spine. Moderate to severe multilevel facet arthrosis. Partially calcified pannus posterior to the dens. Partially imaged pacer leads. Pulmonary emphysema. Subcentimeter thyroid calcifications. The cervical soft tissues appear unremarkable. The visualized lung apices appear clear. IMPRESSION: No acute cervical spine fracture or subluxation. ACT 112: Negative or not required by law. The above report was generated using voice recognition software. It may contain grammatical, syntax or spelling errors. Electronically signed by: Andry Nguyen M.D. 01/19/2025 1:[address] 01/19/25 11:55 CT head/brain wo con CLINICAL HISTORY: 79 years-old Male with fall ams. Acute head trauma status post fall TECHNIQUE: Multiple axial CT images of the head were obtained without contrast. A dose lowering technique was utilized adhering to the principles of ALARA. CT DOSE: 1143.5 mGy.cm COMPARISON: CT cervical spine of same day, CT 08/10/2023 FINDINGS: No acute intracranial hemorrhage, midline shift, intracranial mass, hydrocephalus, territorial ischemia or abnormal extra-axial collection. Involutional changes with chronic microvascular ischemic disease. Prior bilateral lens repair. The calvarium is intact. The paranasal sinuses, mastoid air cells, and middle ear cavities are clear. IMPRESSION: No acute intracranial abnormality or calvarial fracture. ACT 112: Negative or not required by law. The above report was generated using voice recognition software. It may contain grammatical, syntax or spelling errors. Electronically signed by: Andry Nguyen M.D. 01/19/2025 12:[address] 01/20/25 08:04 CT head/brain wo con CLINICAL HISTORY: follow up CT for stroke, MRI not compatible. TECHNIQUE: Multiple axial CT images of the head were obtained without contrast. A dose lowering technique was utilized adhering to the principles of ALARA. CT DOSE: 688.24 mGy.cm COMPARISON: 01/19/2025. FINDINGS: no intracranial hemorrhage seen. No mass effect, midline shift, or hydrocephalus. Stable mild chronic small vessel ischemic changes. No skull fracture seen. IMPRESSION: No acute findings. ACT 112: Negative or not required by law. The above report was generated using voice recognition software. It may contain grammatical, syntax or spelling errors. Electronically signed by: Ari Kimbrough M.D. 01/20/2025 9:16 AM Medications Administered Home Medications Medication Instructions Recorded Confirmed Last Taken PreserVision AREDS-2 1 tab PO BID 08/10/23 01/19/25 01/19/25 aspirin 81 mg tablet,delayed 81 mg PO [facility] 08/10/23 01/19/25 01/19/25 release atorvastatin 80 mg tablet 80 mg PO [facility] 08/10/23 01/19/25 01/19/25 digoxin 125 mcg (0.125 mg) tablet 125 mcg PO 08/10/23 01/19/25 01/11/24 21:00 finasteride 5 mg tablet 5 mg PO 08/10/23 01/19/25 01/11/24 21:00 furosemide 40 mg tablet 80 mg PO [facility] 08/10/23 01/19/25 01/19/25 insulin degludec 100 unit/mL (3 10 unit subcut [facility] 08/10/23 01/19/25 01/19/25 mL) subcutaneous pen (Tresiba FlexTouch U-100 insulin) metformin 1,000 mg tablet 1,000 mg PO BID 08/10/23 01/19/25 01/19/25 metoprolol succinate 50 mg 25 mg PO [facility] 08/10/23 01/19/25 01/19/25 tablet,extended release 24 hr semaglutide 1 mg/dose (4 mg/3 mL) 1 mg subcut Q7D 08/10/23 01/19/25 01/08/24 08:00 subcutaneous pen injector (Ozempic) sertraline 50 mg tablet 50 mg PO 08/10/23 01/19/25 01/11/24 21:00 warfarin 10 mg tablet 5 mg PO UD 08/10/23 01/19/25 01/06/24 21:00 amiodarone 200 mg tablet 200 mg PO BID #60 tabs 08/12/23 01/19/2501/19/25 dapagliflozin propanediol 10 mg 10 mg PO QAM 01/11/24 01/19/25 01/19/25 tablet (Farxiga) Active Medications Generic Name Dose Route Start Last Admin Trade Name Vani PRN Reason Stop Dose Admin Amiodarone HCl 200 mg 01/19/25 21:00 01/20/25 08:04 Amiodarone 200 Mg Tab PO 02/18/25 20:59 200 mg BID MAGDALENE Administration Amoxicillin/Clavulanate Potassium 1 tab 01/20/25 09:35 01/20/25 11:15 Amoxicillin/Clavulanate 875 Mg Tab PO 01/27/25 09:34 1 tab BIDM MAGDALENE Administration Protocol Aspirin 81 mg 01/20/25 09:00 01/20/25 08:04 Aspirin 81 Mg Ectab PO 02/19/25 08:59 81 mg QAM MAGDALENE Administration Atorvastatin Calcium 80 mg 01/20/25 09:00 01/20/25 08:04 Atorvastatin 40 Mg Tab PO 02/19/25 08:59 80 mg QAM MAGDALENE Administration Digoxin 0.125 mg 01/19/25 21:00 01/19/25 21:32 Digoxin 0.125 Mg Tab PO 02/18/25 20:59 0.125 mg HS MAGDALENE Administration Doxycycline Hyclate 100 mg 01/20/25 09:45 01/20/25 11:15 Doxycycline Hyclate 100 Mg Cap PO 01/27/25 09:44 100 mg BID MAGDALENE Administration Finasteride 5 mg 01/19/25 21:00 01/19/25 21:32 Finasteride 5 Mg Tab PO 02/18/25 20:59 5 mg HS MAGDALENE Administration Furosemide 40 mg 01/20/25 07:00 01/20/25 08:03 Furosemide 40 Mg/4 Ml Vial IV 02/19/25 06:59 40 mg [id number] MAGDALENE Administration Insulin Aspart 0 units 01/19/25 17:06 01/20/25 12:46 Insulin Aspart Per Unit Charge SC 02/18/25 17:05 2 units ACHS MAGDALENE Administration Insulin Glargine 10 units 01/20/25 09:00 01/20/25 08:47 Lantus Per Unit Charge SC 02/19/25 08:59 10 units QAM MAGDALENE Administration Metoprolol Succinate 25 mg 01/20/25 09:00 01/20/25 08:04 Metoprolol Succ 25mg Ext Rel Tab PO 02/19/25 08:59 25 mg QAM MAGDALENE Administration Multivitamins/Minerals 1 tab 01/20/25 09:00 01/20/25 08:04 Cerovite Adv Formula Tab PO 02/19/25 08:59 1 tab QAM MAGDALENE Administration Potassium Chloride 40 meq 01/20/25 09:00 01/20/25 08:48 Potassium Chloride Crtab 20 Meq Tabcr PO 02/19/25 08:59 40 meq BID MAGDALENE Administration Sertraline HCl 50 mg 01/19/25 21:00 01/19/25 21:33 Sertraline Hcl 50 Mg Tablet PO 02/18/25 20:59 50 mg HS MAGDALENE Administration Warfarin Sodium 5 mg 01/19/25 17:06 01/19/25 18:15 Warfarin Sod 5 Mg Tab PO 02/18/25 17:05 5 mg [id number] MAGDALENE Administration
--- NOTE | 2025-01-20 13:55 | Hospitalist Progress Note ---
Date of Service January 20, 2025 Assessment & Plan (1) Stroke-like episode: Plan Patient is a 79-year-old male with past medical history of atypical atrial flutter status post DCCV status post ablation in March 2021, on Coumadin and amiodarone, HFrEF, VT/VF status post ICD, CAD status post CABG in 1997, history of LV apical thrombus on Coumadin since , sinus bradycardia, type 2 diabetes mellitus, hypertension, BPH, mood disorder, hyperlipidemia presents to the hospital with word finding difficulty and bilateral lower extremity weakness Stroke like symptoms Mechanical Fall Patient presents to the hospital with word finding difficulty and bilateral lower extremity weakness while trying to get up from the couch. Head CT, cervical CTno acute finding No episode of V. tach today to correlate with the symptoms as per pacemaker clinic; Echo shows EF of 20 to 25% with severe global hypokinesis, grade 2 diastolic dysfunction. MRI brain could not be done due to patient's pacemaker. Repeat CT head without contrast did not show any acute finding Continue PT OT Will obtain CTA head and neck as recommended by neurology Continue Coumadin, ASA and statin Acute on chronic systolic heart failure Last echocardiogram in June 2024 with EF of 20% Bilateral lower extremity 2+ edema in lower extremity on presentation Chest x-rayno pulmonary edema Lasix on hold as patient is getting CTA head and neck will continue tomorrow am Right lower extremity cellulitis Found to have a skin tear in lower extremity with surrounding erythema Started on Augmentin and doxycycline; plan for 7 days. History of recurrent V. tach, atypical atrial flutter Last episode of V. tach as per pacemaker clinic in January 05, 2025; terminated by [facility] Last EP cardiology note reviewed from December 06, 2024; recommended to consider mexiletine if patient has more VT Continue on amiodarone, metoprolol digoxin Replete electrolytes Mag and BMP daily Continue Coumadin; PT/INR daily Type 2 diabetes mellitus-Lantus and NovoLog ordered Hyperlipidemiacontinue Lipitor CAD status post CABG -continue Lipitor and aspirin OSAcontinue CPAP Mood disorderrcontinue sertraline DNR/DNI, okay for antiarrhythmia, shock DVT prophylaxis Coumadin Time spent evaluating patient, direct bedside care, chart review, placing orders, interpretation of diagnostic studies, discussion with consultants, patient, and family members, as well as other required patient management activities is 50 minutes Please note the above document was generated using voice recognition software. It may contain grammatical, syntax or spelling errors. Any formal questions or concerns about the content, text or information contained within the body of this dictation should be directly addressed to the provider for clarification Admission and Anticipated Discharge Date Admission Date: January 19, 2025 Subjective Patient seen and examined at bedside He reports that he is feeling better; he denies any similar episode that prompted his hospitalization No chest pain or shortness of breath He is able to get up off the bed without any difficulty. Review of Systems Review of Systems: All systems reviewed & are unremarkable except as noted in Subjective Physical Exam Physical Exam: Constitutional: Alert oriented x 3; not in any distress. Respiratory: Bilateral vesicular breath sound Cardiovascular: Regular, no murmur. Chest: normal inspection of chest Abdomen: normal bowel sounds, soft, nontender, no hepatosplenomegaly Musculoskeletal: Bilateral trace pitting edema Neurologic: PERRL, EOMI, accommodation nl, no face palsy, no dysarthria CN's II- XI intact bilaterally and moves all extremities Results & Data Results & Data Vital Signs (Past 12 Hours) Vital Signs Temp Pulse Resp BP Pulse Ox O2 Del Method 01/20/25 11:22 36.4 C L 72 19 108/68 97 Room Air 01/20/25 07:58 36.4 C L 74 19 111/60 95 Room Air 01/20/25 04:20 36.4 C L 71 18 108/62 97 Room Air
[2025-01-20] MEDS: OPTIRAY 320 125ml IV ONE (13:57)
--- NOTE | 2025-01-20 14:36 | CT Scan Report ---
CT angio neck with con, CT angio head w con CLINICAL HISTORY: word finding difficulty, ?TIA. COMPARISON STUDY: Head CT earlier today. TECHNIQUE: Following the IV administration of 120 of Optiray, CT angiogram of the neck and brain was performed from the aortic arch to the skull base. Images are reviewed in the axial, sagittal, and cor onal planes. 3-D MIPS images are created and assessed. IV contrast was administered without complicat ion. All measurements were calculated based on NASCET criteria. A dose lowering technique was utiliz ed adhering to the principles of ALARA. CT DOSE: 460.7 mGy.cm FINDINGS: There are carotid bulb calcifications with less than 50% narrowing at the carotid bulbs jyoti aterally. There is mild narrowing at the origin of the vertebral arteries bilaterally due to calcifie d plaque. No other significant narrowing or occlusion seen at the common or internal carotid or verte bral arteries bilaterally. Basilar artery is widely patent. The anterior, middle, and posterior cereb ral arteries are patent bilaterally. There are cervical spine degenerative changes. There are finding s of emphysema visualized upper lungs. IMPRESSION: 1. Chronic 50% narrowing at the carotid bulbs and mild chronic narrowing at the origin of the vertebr al arteries. 2. No other significant arterial narrowing or occlusion seen at the neck or brain. ACT 112: Negative or not required by law. The above report was generated using voice recognition software. It may contain grammatical, syntax o r spelling errors. Electronically signed by: Ari Kimbrough M.D. 01/20/2025 2:33 PM
--- NOTE | 2025-01-20 17:01 | Ultrasound Report ---
EXAM: US Duplex Bilateral Lower Extremities Veins INDICATION: Rule out DVT TECHNIQUE: Real-time duplex ultrasound scan of the bilateral lower extremity veins integrating B-mode two-dimensional vascular structure, Doppler spectral analysis, color flow Doppler imaging and compression. COMPARISON: No relevant prior studies available. FINDINGS: Right deep veins: No DVT in the right common femoral, femoral or popliteal veins. The veins demonstrate normal color flow, are normally compressible, with normal phasic flow and/or augmentation response. Right superficial veins: No abnormality noted. No thrombus in the visualized right great saphenous vein. Left deep veins: No DVT in the left common femoral, femoral or popliteal veins. The veins demonstrate normal color flow, are normally compressible, with normal phasic flow and/or augmentation response. Left superficial veins: No abnormality noted. No thrombus in the visualized left great saphenous vein. Soft tissues: No abnormality noted. IMPRESSION: No deep venous thrombosis of either lower extremity. ACT 112: N/A Electronically signed by Yolande Zamora 01-20-2025 4:57 PM
--- NOTE | 2025-01-20 23:21 | Electrocardiogram Report ---
Test Reason : Blood Pressure : */* mmHG Vent. Rate : 83 BPM Atrial Rate : 83 BPM P-R Int : 176 ms QRS Dur : 156 ms QT Int : 482 ms P-R-T Axes : 77 130 49 degrees QTcB Int : 566 ms AV dual-paced rhythm with occasional Premature ventricular complexes Abnormal ECG When compared with ECG of 12-Aug-2023 05:08, Premature ventricular complexes are now Present Vent. rate has increased by 11 bpm Confirmed by Krunal Kurtz ([id number]) on 01/20/2025 11:20:34 PM Referred By: REFERRED SELF Confirmed By: Krunal Kurtz
[2025-01-21 08:27] LABS: Basophils # (auto) 0.04 K/uL (0.00-0.20); Basophils % (auto) 0.6 %; Eosinophils # (auto) 0.25 K/uL (0.00-0.50); Eosinophils % (auto) 3.8 %; Hematocrit (blood only) 33.8 % (42.0-52.0); Hemoglobin 11.3 g/dl (14.0-18.0); Immature Granulocytes # (auto) 0.01 K/uL (0.01-0.20); Immature Granulocytes % (auto) 0.2 %; Lymphocytes # (auto) 1.11 K/uL (1.20-3.40); Lymphocytes % (auto) 16.9 %; Mean Corpuscular Hemoglobin 29.3 pg (25.0-34.0); Mean Corpuscular Hgb Conc 33.4 g/dL (32.0-36.0); Mean Corpuscular Volume 87.6 fL (80.0-100.0); Mean Platelet Volume 9.2 fL (9.4-12.4); Monocytes # (auto) 0.61 K/uL (0.11-0.59); Monocytes % (auto) 9.3 %; Neutrophils # (auto) 4.53 K/uL (1.40-6.50); Neutrophils % (auto) 69.2 %; Platelet Count 194 K/uL (130-400); RDW Coefficient of Variation 15.6 % (11.5-14.5); RDW Standard Deviation 49.2 fL (36.4-46.3); Red Blood Count 3.86 M/uL (4.70-6.10); White Blood Count 6.55 K/ul (4.8-10.8)
[2025-01-21 08:28] VITALS: PULSE 71; RESP 20
[2025-01-21 08:50] LABS: BUN Creatinine Ratio 15.4 (10-20); Calcium 7.9 mg/dl (8.6-10.3); Creatinine Clr Calc Pharmacy 64.7 ml/min; Potassium 4.1 mmol/L (3.5-5.1)
[2025-01-21 08:52] LABS: INR 2.2 (0.9-1.1); Prothrombin Time 22.4 Seconds (9.0-12.0)
[2025-01-21 12:02] VITALS: BP 104/61; TEMP 97.7; O2SAT 96
--- NOTE | 2025-01-21 15:06 | Discharge Summary ---
Date of Service January 21, 2025 Admission HPI Per Admitting Provider History obtained from chart review and interview with the patient Past medical history of atypical atrial flutter status post DCCV status post ablation in March 2021, on Coumadin and amiodarone, HFrEF, VT/VF status post ICD, CAD status post CABG in 1997, history of LV apical thrombus on Coumadin since , sinus bradycardia, type 2 diabetes mellitus, hypertension, BPH, mood disorder, hyperlipidemia Last admission in December 2023 when patient underwent partial amputation of second left toe for osteomyelitis Patient presented to the hospital after he had sudden onset of weakness on his bilateral lower extremity and word finding difficulty. Patient reports that he was on the couch; when trying to stand up; his bilateral lower extremity leg became weak and he also started to to experience word finding difficulties. Patient denies passing out or hitting his head. He denies chest pain, palpitation, ICD shocks, fever, chills, abdominal pain. His last EP visit was in December 06, 2024; recommended to consider adding mexiletine if patient has more VT; lisinopril was discontinued. Last echo was in June 2024 which showed EF of 20%; unchanged prior to before. He had similar episode of syncope in July 2023 secondary to V. tach; was started on amiodarone during that time. EKG on admission showed AV dual paced rhythm with occasional PVCs. High sensitive troponin on admission within normal limits. Admission Exam Per Admitting Provider Constitutional: Alert oriented x 3; not in any distress. Respiratory: Bilateral vesicular breath sound Cardiovascular: Regular, no murmur. Chest: normal inspection of chest Abdomen: normal bowel sounds, soft, nontender, no hepatosplenomegaly Musculoskeletal: Bilateral pitting edema Neurologic: PERRL, EOMI, accommodation nl, no face palsy, no dysarthria CN's II- XI intact bilaterally and moves all extremities Principal Diagnosis Stroke like symptoms Mechanical Fall Discharge Exam Constitutional: Alert oriented x 3; not in any distress. Respiratory: Bilateral vesicular breath sound Cardiovascular: Regular, no murmur. Chest: normal inspection of chest Abdomen: normal bowel sounds, soft, nontender, no hepatosplenomegaly Musculoskeletal: Bilateral trace pitting edema Neurologic: PERRL, EOMI, accommodation nl, no face palsy, no dysarthria CN's II- XI intact bilaterally and moves all extremities Discharge Data Allergies Allergy/AdvReac Type Severity Reaction Status Date / Time No Known Allergies Allergy Unknown Verified 01/12/24 13:20 Consultations 01/19/25 14:38 ED Decision to Admit Stat 01/19/25 17:06 Consult Cardiology Routine Consult Neurology Routine Ordered Studies 01/19/25 11:55 CT cervical spine wo con Stat CT head/brain wo con Stat 01/20/25 08:04 CT head/brain wo con Routine 01/20/25 12:45 CTA head w con [CT angio head w con] Routine CTA neck with con [CT angio neck with con] Routine 01/20/25 13:52 US venous duplex leg [US venous doppler LE BI] Routine Hospital Course (1) Stroke-like episode: Plan Patient is a 79-year-old male with past medical history of atypical atrial flutter status post DCCV status post ablation in March 2021, on Coumadin and amiodarone, HFrEF, VT/VF status post ICD, CAD status post CABG in 1997, history of LV apical thrombus on Coumadin since , sinus bradycardia, type 2 diabetes mellitus, hypertension, BPH, mood disorder, hyperlipidemia presents to the hospital with word finding difficulty and bilateral lower extremity weakness Stroke like symptoms Mechanical Fall Possible TIA Patient presents to the hospital with word finding difficulty and bilateral lower extremity weakness while trying to get up from the couch. Head CT, cervical CTno acute finding No episode of V. tach today to correlate with the symptoms as per pacemaker clinic; Echo shows EF of 20 to 25% with severe global hypokinesis, grade 2 diastolic dysfunction. MRI brain could not be done due to patient's pacemaker. Repeat CT head without contrast did not show any acute finding CTA head and neck do not show any acute finding Patient did not have any recurrence of weakness during the hospitalization Recommended to continue Coumadin, aspirin and statin at discharge. Hypokalemiastarted on potassium supplement at discharge as patient was on diuretics Acute on chronic systolic heart failure Last echocardiogram in June 2024 with EF of 20% Bilateral lower extremity 2+ edema in lower extremity on presentation Chest x-rayno pulmonary edema Treated with IV Lasix Right lower extremity cellulitis Found to have a skin tear in lower extremity with surrounding erythema Discharged on Augmentin and doxycycline History of recurrent V. tach, atypical atrial flutter Last episode of V. tach as per pacemaker clinic in January 05, 2025; terminated by [facility] Last EP cardiology note reviewed from December 06, 2024; recommended to consider mexiletine if patient has more VT Cardiology consulted; recommended continuing current meds Please note the above document was generated using voice recognition software. It may contain grammatical, syntax or spelling errors. Any formal questions or concerns about the content, text or information contained within the body of this dictation should be directly addressed to the provider for clarification Total Time Total Time Spent Total Time Spent (In Minutes): 45 Total Time Includes: Examination of the Patient, Discharge Planning, Medication Reconciliation, Communication With Other Providers and Other Discharge Plan Discharge Items Patient Disposition: Home - Self-Care Reason For Visit: WEAKNESS Discharge Diagnosis: Generalized weakness/fall Possible TIA Activity: Resume your previous activity Non-emergency contact: Primary Care Provider Call non-emergency contact if: you have any medication questions and your symptoms worsen Follow-up/Referrals: Beth Mcginnis DO [Primary Care Provider] - 01/26/25 11:30 am (Date & Time 01/26/2025 11:30 AM Provider: Beth Mcginnis DO [facility]) Diet: Regular Addtl Attending Provider Instructions: You were admitted to the hospital due to a fall and unresponsive episode. The scans done during the hospitalization did not show any acute finding. You are prescribed following medication; Take Augmentin twice a day for 4 more days Take doxycycline 100 mg twice a day for 4 more days Take potassium tablet 20 mg once a day as your potassium is on the lower side. Pending Studies at Discharge: No Stand-Alone Forms: [facility], Smoking Cessation Medications and DC Order Prescriptions: New doxycycline hyclate 100 mg Capsule 100 mg PO BID 4 Days Qty: 8 0RF amoxicillin-pot clavulanate 875-125 mg Tablet 1 tab PO BIDM 4 Days Qty: 8 0RF potassium chloride 20 mEq Tablet,Er Particles/Crystals 20 meq PO DAILY 30 Days Qty: 30 0RF Continued furosemide 40 mg tablet 80 mg PO QAM atorvastatin 80 mg tablet 80 mg PO QAM metoprolol succinate 50 mg tablet extended release 24 hr 25 mg PO QAM warfarin 10 mg tablet 5 mg PO UD Rx Instructions: warfarin 10mg on Thursday and 5mg all other days. aspirin 81 mg Tablet,Delayed Release (Dr/Ec) 81 mg PO QAM metformin 1,000 mg tablet 1,000 mg PO BID digoxin 125 mcg (0.125 mg) tablet 125 mcg PO HS sertraline 50 mg tablet 50 mg PO HS finasteride 5 mg tablet 5 mg PO HS Ozempic 1 mg/dose (4 mg/3 mL) pen injector 1 mg SUBCUT Q7D PreserVision AREDS-2 1 tab 1 tab PO BID insulin degludec [Tresiba FlexTouch U-100] 100 unit/mL (3 mL) Insulin Pen 10 unit SUBCUT QAM amiodarone 200 mg tablet 200 mg PO BID Qty: 60 0RF dapagliflozin propanediol [Farxiga] 10 mg Tablet 10 mg PO QAM Discharge Orders: Discharge Order (Routine); Ordered 01/21/25 Ordered By: Ga Allison Admission Data Admit Date/Time: 01/19/25 15:43 Attending Provider: Ga Allison Admit Provider: Ga Allison Primary Care Provider: Beth Mcginnis Other Providers: Silvio Grajeda; Rehan Villanueva; Ernesto Le Other Interventions: Discharge Summary Assessment (RN) Last Done: 01/21/25 13:33
[2025-01-23] MEDS ORDERED: WARFARIN SOD 5 MG TAB PO SCH (16:00)
== END 2025-01-21 13:35 | disposition home or self-care (01) | DRG 91 ==
LOC: ED 11:47 → 4W 15:43

== ENCOUNTER 2025-02-23 07:33 | Inpatient (IN) ==
--- NOTE | 2025-02-23 07:44 | Emergency Department Note ---
Impression & Plan Acute GI bleeding, Chest pain, CHF (congestive heart failure) ED Provider Note NAME: SHANNON MARCELINO AGE: 79 SEX: M : 1945 ARRIVES VIA: Ambulance INFORMANT: Patient ED PROVIDER(S): Christiano Gusman DO CHIEF COMPLAINT: Left-sided chest pain HPI: Patient is a 79-year-old male with a past medical history of diabetes, dyslipidemia, hypertension, AMS, CAD, syncope, PAD, CHF with ICD, ischemic cardiomyopathy and paroxysmal a flutter who presents to the ER for left-sided chest pain. It has been present for the past 5 hours. Its only present when he takes a deep breath. He denies any cough or congestion. No arm or jaw pain. Does take his breath away. No belly pain, nausea, vomiting or diarrhea. No dysuria, urgency or frequency. Was given 2 nitro prior to arrival and aspirin as well. No improvement with aspirin or nitro. ADDITIONAL HISTORY OBTAINED: Per HPI Chronic Medical/Social Conditions Affecting Care: Per HPI PAST MEDICAL HISTORY:See Below PAST SURGICAL HISTORY:See Below FAMILY HISTORY:See Below SOCIAL HISTORY:See Below HOME MEDICATIONS:See Below ALLERGIES:See Below VITALS:See Below PHYSICAL EXAMINATION: GENERAL: Sitting up in bed, alert, well appearing, well nourished, no distress, non-toxic EYE EXAM: normal conjunctiva. PERRL and EOM's grossly intact. OROPHARYNX: no exudate, no erythema, lips, buccal mucosa, and tongue normal and mucous membranes are moist NECK: supple, no nuchal rigidity, no adenopathy, non-tender CHEST: Just left of sternum rib 3-4 pain improves with splinting LUNGS: Clear to auscultation. Normal chest wall mechanics HEART: no murmurs, S1 normal and S2 normal ABDOMEN: abdomen soft, non-tender, normo-active bowel sounds, no masses, no rebound or guarding. RECTAL: hem + stool UPPER EXTREMITIES: upper extremities are grossly normal. LOWER EXTREMITIES: Pitting edema to bilateral lower extremities. NEURO EXAM: Normal sensorium, cranial nerves II-XII grossly intact, normal speech, no gross weakness of arms, no gross weakness of legs. MEDICAL DECISION MAKING: Patient is a 79-year-old male who presents ER for the above-stated complaint. IV was established and blood work was obtained. Labs show no significant leukocytosis. Hemoglobin slightly low at 9.2. INR subtherapeutic at 1.6. BMP with creatinine 1.5. LFTs and bilirubin were unremarkable. Troponin was negative. Lipase normal. CTA of the chest was obtained and was unremarkable. Patient was given IV Lasix. Rectal was heme positive. I do favor that this GI bleed is likely cause of the anemia and the drop in hemoglobin from 11-9. Patient and family were updated at bedside discussed case with the hospitalist for further evaluation management and treatment. INR was not reversed as it was already low at 1.6. Consults/Care Managements Discussions: Per [facility] Triage Nursing notes reviewed. Limited review of prior medical records performed Vital Signs: reviewed and remarkable for no significant abnormalities Differential diagnosis: Cardiac ischemia, aortic dissection, pulmonary embolism, pneumothorax, pneumonia, pericarditis, myocarditis, esophageal rupture, GERD, cholecystitis, pancreatitis, musculoskeletal, as well as other pathologies. ER treatment provided: See below Diagnostics interpreted by me include EKG and cardiac monitoring as listed below: -Cardiac Monitoring: An order was placed for continuous cardiac monitoring. The monitor shows a rate of 70 with paced rhythm. -ECG: AV dual paced rate of 75 QTc 511 Right bundle branch block -Laboratory studies:Interpreted by me as stated above in MDM and shown below. Imaging studies: Xrays: As interpreted by me: Portable AP upright 1 view of the chest shows no focal infiltrate CTs show: CT angios negative per radiology Procedures:none Critical Care: None Past Med/Surg History Problem List (Updated 02/23/25 @ 12:45 by Christiano Gusman DO) CHF (congestive heart failure) (Acute) Chest pain (Acute) Acute GI bleeding (Acute) History of prior use of snuff Leukoplakia of oral cavity Generalized gingival recession, severe Type 2 diabetes mellitus with obesity Rib injury (Acute) Vitamin D deficiency (Chronic) Dyslipidemia (Chronic) Left nephrolithiasis (Chronic) Hypertension (Acute) Renal cyst (Acute) Multiple cysts in Left kidney-3.4cm Renal stone (Acute) Left interpolar region 8mm Fall (Acute) Weakness (Acute) AMS (altered mental status) (Acute) Stroke-like episode Osteomyelitis Traumatic open wound of left lower leg with delayed healing (Acute) Diabetic ulcer of toe of left foot (Acute) Biventricular ICD (implantable cardioverter-defibrillator) in place Syncope (Acute) Ventricular tachycardia (Acute) Syncope and collapse Syncope Cellulitis of leg, left PAD (peripheral artery disease) (Acute) Diabetic ulcer of left heel (Acute) Diabetic ulcer of left great toe (Acute) Diabetic ulcer of right great toe (Acute) Osteomyelitis (Acute) Diabetic foot ulcer Diabetic ulcer of toe associated with diabetes mellitus due to underlying condition, limited to breakdown of skin Encounter for pre-operative examination Umbilical hernia (Chronic) ICD (implantable cardioverter-defibrillator) in place Biventricular ICD upgrade 08/2020 Medtronic- h/o ICD discharge 10/2020 x 2 per 01/2021 ICD check Sleep apnea cpap BPH (benign prostatic hyperplasia) Hypertension Chronic systolic CHF (congestive heart failure) Severe LV dysfunction Paroxysmal atrial flutter Ischemic cardiomyopathy EF= 13% on 10/2020 stress test Diabetes mellitus, type 2 Medical History History of kidney stones Hypokalemia History of cardioversion 2020, [facility] Hx of angiography 12/2023, [facility] LBBB (left bundle branch block) Follows with dr. [facility], [place] Apical mural thrombus History of- on chronic Coumadin Depression Anxiety CAD (coronary artery disease) S/p 3 vessel bypass 1997 On anticoagulant therapy warfarin daily Myocardial Infarction x3--last 1997--follows with Dr. Bang Bush Hyperlipidemia Surgical History History of lithotripsy multiple--last 10/2020 @ [facility] History of kidney surgery ureter englarged History of amputation of great toe bilateral History of surgery left leg vein removed for bypass History of carpal tunnel surgery of right wrist History of colonoscopy History of appendectomy History of tonsillectomy and adenoidectomy History of bilateral cataract extraction History of cardiac cath x1--1997 @ [facility] [place]no stents, had CABG History of implantable cardioverter-defibrillator (ICD) placement inserted 01/2007, replaced 02/2016, upgraded to BiV ICD on 09/19/20--[employer] S/P triple vessel bypass @ [facility] [place] 1997 Family History Other No family history of adverse response to anesthesia Social History Smoking Status: Former smoker Tobacco Type: Cigarettes Second Hand Exposure: Yes ( smokes); Do You Dip or Chew Tobacco: Yes (1 can/4-5 days; advised); Hx Alcohol Use: Yes Alcohol type: beer Alcohol Intake Frequency: Monthly or Less Hx Substance Use: No Preferred Language: Slovak Communication Ability: Effective Visual Impairment: Limited Hearing Ability: Hard of Hearing Cable Driller Required: No Beliefs That Will Affect Care: None marital status: Current Living Situation: Spouse Feels Safe at Home: Yes Diet: regular Assistive Devices: Cane and Walker Allergies Allergies Allergy/AdvReac Type Severity Reaction Status Date / Time No Known Allergies Allergy Unverified 02/23/25 09:30 Home Meds Home Medications Medication Instructions Recorded Confirmed aspirin 81 mg tablet,delayed 81 mg PO QAM 08/10/23 02/23/25 release atorvastatin 80 mg tablet 80 mg PO HS 08/10/23 02/23/25 digoxin 125 mcg (0.125 mg) tablet 125 mcg PO 3XWK 08/10/23 02/23/25 finasteride 5 mg tablet 5 mg PO HS 08/10/23 02/23/25 furosemide 40 mg tablet 40 mg PO BID 08/10/23 02/23/25 insulin degludec 100 unit/mL (3 7 unit subcut QAM 08/10/23 02/23/25 mL) subcutaneous pen (Tresiba FlexTouch U-100 insulin) metformin 1,000 mg tablet 1,000 mg PO BID 08/10/23 02/23/25 semaglutide 1 mg/dose (4 mg/3 mL) 4 mg subcut Q7D 08/10/23 02/23/25 subcutaneous pen injector (Ozempic) sertraline 50 mg tablet 75 mg PO DAILY 08/10/23 02/23/25 vit C 250 mg-vit E 90 mg-zinc 40 1 tab PO BID ##0 08/10/23 02/23/25 mg-copper 1 [id number] capsule (PreserVision AREDS-2) warfarin 10 mg tablet See Rx Instructions .Route .COMPLEX 08/10/23 02/23/25 dapagliflozin propanediol 10 mg 0 mg PO DAILY 02/23/25 02/23/25 tablet (Farxiga) metoprolol succinate 25 mg 25 mg PO DAILY 02/23/25 02/23/25 tablet,extended release 24 hr midodrine 2.5 mg tablet 2.5 mg PO TID 02/23/25 02/23/25 potassium chloride 20 mEq 20 meq PO DAILY 02/23/25 02/23/25 tablet,extended release(part/cryst) Previous Rx's Medication Instructions Recorded amiodarone 200 mg tablet 200 mg PO BID #60 tabs 08/12/23 Results & Data (ED) Vital Signs Vital Signs - 24 hr 02/23/25 07:40 02/23/25 07:54 02/23/25 07:56 Temperature 36.5 C Temperature Source Oral Pulse Rate 69 71 Pulse Rate [Apical] 70 Pulse Rhythm Regular Regular Pulse Rhythm [Apical] Pulse Strength Normal Pulse Strength [Apical] Respiratory Rate 18 17 19 Respiratory Effort / Characteristics Non-Labored Spontaneous Respiratory Depth Normal Respiratory Pattern Regular Blood Pressure 124/71 Blood Pressure [Right Arm] 124/71 Blood Pressure Mean 88 Blood Pressure Mean [Right Arm] 88 Pulse Oximetry 98 98 Oxygen Delivery Method Room Air Room Air Sepsis Recent Fever Within 48 Hours No Sepsis New/Unexplained Change in Mental Status No Sepsis Action Taken by Nursing No Action Required 02/23/25 08:09 02/23/25 09:05 02/23/25 10:12 Temperature Temperature Source Pulse Rate 70 Pulse Rate [Apical] 70 71 Pulse Rhythm Pulse Rhythm [Apical] Pulse Strength Pulse Strength [Apical] Respiratory Rate 19 19 Respiratory Effort / Characteristics Non-Labored Spontaneous Respiratory Depth Normal Normal Respiratory Pattern Blood Pressure Blood Pressure [Right Arm] 106/64 112/63 Blood Pressure Mean Blood Pressure Mean [Right Arm] 78 79 Pulse Oximetry 96 94 Oxygen Delivery Method Room Air Room Air Sepsis Recent Fever Within 48 Hours Sepsis New/Unexplained Change in Mental Status Sepsis Action Taken by Nursing 02/23/25 10:59 02/23/25 12:07 Temperature Temperature Source Pulse Rate 70 Pulse Rate [Apical] 69 Pulse Rhythm Pulse Rhythm [Apical] Regular Pulse Strength Pulse Strength [Apical] Normal Respiratory Rate 19 Respiratory Effort / Characteristics Non-Labored Spontaneous Respiratory Depth Normal Respiratory Pattern Blood Pressure Blood Pressure [Right Arm] 128/59 L Blood Pressure Mean Blood Pressure Mean [Right Arm] 82 Pulse Oximetry 93 Oxygen Delivery Method Room Air Sepsis Recent Fever Within 48 Hours Sepsis New/Unexplained Change in Mental Status Sepsis Action Taken by Nursing Laboratory Data 02/23/25 07:43 02/23/25 07:43 Lab Results 02/23/25 02/23/25 Range/Units 07:43 09:35 WBC 7.77 (4.8-10.8) K/ul RBC 3.37 L (4.70-6.10) M/uL Hgb 9.2 L (14.0-18.0) g/dl Hct 29.8 L (42.0-52.0) % MCV 88.4 (80.0-100.0) fL MCH 27.3 (25.0-34.0) pg MCHC 30.9 L (32.0-36.0) g/dL RDW Std Deviation 51.7 H (36.4-46.3) fL RDW Coeff of Ade 15.9 H (11.5-14.5) % Plt Count 263 (130-400) K/uL MPV 9.0 L (9.4-12.4) fL Immature Gran % (Auto) 0.4 % Neut % (Auto) 72.4 % Lymph % (Auto) 17.2 % Day % (Auto) 7.3 % Eos % (Auto) 2.3 % Baso % (Auto) 0.4 % Neut # (Auto) 5.62 (1.40-6.50) K/uL Lymph # (Auto) 1.34 (1.20-3.40) K/uL Day # (Auto) 0.57 (0.11-0.59) K/uL Eos # (Auto) 0.18 (0.00-0.50) K/uL Baso # (Auto) 0.03 (0.00-0.20) K/uL Immature Gran # (Auto) 0.03 (0.01-0.20) K/uL PT 16.3 H (9.0-12.0) Seconds INR 1.6 H (0.9-1.1) Sodium 141 (136-145) mmol/L Potassium 4.0 (3.5-5.1) mmol/L Chloride 106 (98-107) mmol/L Carbon Dioxide 27 (21-32) mmol/L Anion Gap 8 (3-11) BUN 27 H (6-23) mg/dl Creatinine 1.57 H (0.6-1.4) mg/dl Est Cr Clr Drug Dosing 40.9 ml/min eGFR 44.83 BUN/Creatinine Ratio 17.2 (10-20) Glucose 187 H (70-99(Fasting)) mg/dl Calcium 8.7 (8.6-10.3) mg/dl Total Bilirubin 0.4 (0.2-1.0) mg/dl AST 40 H (13-39) U/L ALT 31 (7-52) U/L Alkaline Phosphatase 93 (34-104) U/L Troponin I High Sens 10.6 12.0 (0-20) pg/ml Total Protein 7.5 (6.0-8.3) gm/dl Albumin 3.8 (3.4-5.0) gm/dl Globulin 3.7 (2.5-4.0) gm/dl Albumin/Globulin Ratio 1.0 (0.9-2) Lipase 60 (11-82) U/L Administered Medications Pantoprazole Sodium 40 mg/ (Dextrose) 100 mls @ 20 mls/hr IV Q5H MAGDALENE Stop: 03/25/25 10:59 Last Admin: 02/23/25 10:55 Dose: 8 mg/hr, 20 mls/hr Documented By: EVERARDO Discontinued Medications Acetaminophen (Acetaminophen 325 Mg Tab) 650 mg PO NOW STA Stop: 02/23/25 10:19 Last Admin: 02/23/25 10:33 Dose: 650 mg Documented By: EVERARDO Furosemide (Furosemide 40 Mg/4 Ml Vial) 40 mg IV NOW STA Stop: 02/23/25 10:11 Last Admin: 02/23/25 10:15 Dose: 40 mg Documented By: EVERARDO Pantoprazole Sodium 80 mg/ (Dextrose) 120 mls @ 480 mls/hr IV NOW ONE Stop: 02/23/25 10:44 Last Admin: 02/23/25 10:54 Dose: 480 mls/hr Documented By: EVERARDO Ioversol (Optiray 320 125ml) 90 ml IV ONCE ONE Stop: 02/23/25 08:49 Last Admin: 02/23/25 08:48 Dose: 90 ml Documented By: RAUL Ketorolac Tromethamine (Ketorolac Tromethamine 15 Mg/Ml Vial) 10 mg IV NOW ONE Stop: 02/23/25 07:39 Last Admin: 02/23/25 07:45 Dose: 10 mg Documented By: EVERARDO Morphine Sulfate (Morphine Sulfate 2 Mg/Ml Carp) 2 mg IV NOW STA Stop: 02/23/25 10:19 Last Admin: 02/23/25 10:32 Dose: 2 mg Documented By: EVERARDO Pantoprazole Sodium (Pantoprazole Bolus/Drip) 1 each IV NOW STA Stop: 02/23/25 10:31 Last Admin: 02/23/25 11:01 Dose: Not Given Documented By: EVERARDO Imaging Data Radiologist's Impression: Chest X-Ray 02/23/25 07:39 XR chest 1V portable CLINICAL HISTORY: Chest pain, nonspecific COMPARISON STUDY: 01/19/2025 FINDINGS: No significant interval changes have occurred in a patient who demonstrates gross cardiomegaly and chronic pulmonary vascular congestion. There is no Radhika B line or pleural effusion. There is no focal airspace opacity. There is no pneumothorax or atelectasis. Median sternotomy wire sutures are once again noted. There is a triple lead pacemaker/defibrillator in place. IMPRESSION: Stable exam as described. No acute process. ACT 112: Negative or not required by law. Electronically signed by: Zuleika Hidalgo M.D. 02/23/2025 8:15 AM Chest CTA 02/23/25 08:29 CT angio chest PE protocol CT DOSE: 812.37 mGy.cm HISTORY: 79 years-old Male with PE. Acute shortness of breath TECHNIQUE: Multiple CTA images of the chest were obtained after the intravenous administration of 90 ml Optiray. Coronal and sagittal MIPS were obtained from the axial data set and were submitted for review. All measurements were obtained according to NASCET criteria. A dose lowering technique was utilized adhering to the principles of ALARA. COMPARISON: Chest radiograph of same day, duplex venous Doppler study 01/20/2025 FINDINGS: CTA: Moderate to marked cardiomegaly. No pericardial effusion., However there are moderate pericardial calcifications. Median sternotomy with CABG. A left subclavian pacer. Atherosclerosis of the aorta without aneurysm. Dilated main pulmonary artery measures 3.6 cm. No central pulmonary emboli. Suboptimal evaluation of the segmental and subsegmental branches secondary to contrast bolus timing. CT CHEST: Calcifications with subcentimeter nodules of the thyroid. Calcified mediastinal and hilar lymph nodes. Additionally, there are noncalcified lymph nodes measuring up to 10 mm. Trace pleural effusions. Emphysema with interlobular septal thickening and bronchial wall thickening. There is a mild bibasilar mucous plugging. 2.8 cm dependent groundglass opacity in the left upper lobe on image 163 series 4. Increased density of the gallbladder suggestive of vicarious excretion of contrast, sludge versus cholelithiasis. Subcentimeter calcifications noted within the lairsa hepatis. Cortical thinning of the kidneys. Exophytic left renal cyst. Moderate fecal retention. Unremarkable soft tissues. No acute fracture. IMPRESSION: 1. No pulmonary emboli identified. 2. Cardiomegaly with prior median sternotomy and CABG. Pericardial calcifications likely represents sequela of chronic pericarditis. 3. Pulmonary arterial hypertension. 4. Mild interstitial pulmonary edema with trace pleural effusions. 5. 2.8 cm dependent groundglass density of the left upper lobe is likely atelectatic. Attention on follow-up recommended in order to exclude a groundglass nodule. 6. Prior granulomatous disease. ACT 112: Negative or not required by law. The above report was generated using voice recognition software. It may contain grammatical, syntax or spelling errors. Electronically signed by: Andry Nguyen M.D. 02/23/2025 9:02 AM Discharge Plan Visit Data Chief Complaint: Chest Pain Stated Complaint: CHEST PAIN ED Provider: Christiano Gusman Discharge Problem: Acute GI bleeding, Chest pain, CHF (congestive heart failure) Forms Stand Alone Forms: My [facility] [place] [employer] Prescriptions Prescriptions: No Action furosemide 40 mg tablet 40 mg PO BID atorvastatin 80 mg tablet 80 mg PO HS warfarin 10 mg tablet See Rx Instructions .ROUTE .COMPLEX Rx Instructions: warfarin 10mg on Thursday and 5mg all other days. aspirin 81 mg Tablet,Delayed Release (Dr/Ec) 81 mg PO QAM Rx Instructions: Unable to verify OTC meds at this date/time. metformin 1,000 mg tablet 1,000 mg PO BID digoxin 125 mcg (0.125 mg) tablet 125 mcg PO 3XWK Rx Instructions: Thu/Thu/Thu sertraline 50 mg tablet 75 mg PO DAILY Rx Instructions: Take w/ 25mg to equal 75mg daily finasteride 5 mg tablet 5 mg PO HS PreserVision AREDS-2 250-90-40-1 mg Capsule 1 tab PO BID Qty: 0 Rx Instructions: Unable to verify OTC meds at this date/time. Ozempic 1 mg/dose (4 mg/3 mL) pen injector 4 mg SUBCUT Q7D Rx Instructions: Fridays insulin degludec [Tresiba FlexTouch U-100] 100 unit/mL (3 mL) Insulin Pen 7 unit SUBCUT QAM Rx Instructions: Not on file w/ pharmacy. Pt unsure of this medication. Unable to verify at this date/time. 7 ? units every morning amiodarone 200 mg tablet 200 mg PO BID Qty: 60 0RF potassium chloride 20 mEq tablet,ER particles/crystals 20 meq PO DAILY midodrine 2.5 mg tablet 2.5 mg PO TID dapagliflozin propanediol [Farxiga] 10 mg Tablet 0 mg PO DAILY Rx Instructions: Pt unsure of this medication at this date/time. Not on file w/ pharmacy. Original Directions: 10mg by mouth daily metoprolol succinate 25 mg Tablet Extended Release 24 Hr 25 mg PO DAILY Referrals Referrals: Beth Bush DO [Primary Care Provider] - Discharge Problem: Chest pain Qualifiers: Chest pain type: unspecified Qualified Code(s): R07.9 - Chest pain, unspecified CHF (congestive heart failure) Qualifiers: Heart failure type: unspecified Heart failure chronicity: unspecified Qualified Code(s): I50.9 - Heart failure, unspecified
[2025-02-23] MEDS: KETOROLAC TROMETHAMINE 15 MG/ML VIAL IV ONE (07:45)
[2025-02-23 08:03] LABS: Basophils # (auto) 0.03 K/uL (0.00-0.20); Basophils % (auto) 0.4 %; Eosinophils # (auto) 0.18 K/uL (0.00-0.50); Eosinophils % (auto) 2.3 %; Hematocrit (blood only) 29.8 % (42.0-52.0); Hemoglobin 9.2 g/dl (14.0-18.0); Immature Granulocytes # (auto) 0.03 K/uL (0.01-0.20); Immature Granulocytes % (auto) 0.4 %; Lymphocytes # (auto) 1.34 K/uL (1.20-3.40); Lymphocytes % (auto) 17.2 %; Mean Corpuscular Hemoglobin 27.3 pg (25.0-34.0); Mean Corpuscular Hgb Conc 30.9 g/dL (32.0-36.0); Mean Corpuscular Volume 88.4 fL (80.0-100.0); Monocytes # (auto) 0.57 K/uL (0.11-0.59); Monocytes % (auto) 7.3 %; Neutrophils # (auto) 5.62 K/uL (1.40-6.50); Neutrophils % (auto) 72.4 %; Platelet Count 263 K/uL (130-400); RDW Coefficient of Variation 15.9 % (11.5-14.5); RDW Standard Deviation 51.7 fL (36.4-46.3); Red Blood Count 3.37 M/uL (4.70-6.10); White Blood Count 7.77 K/ul (4.8-10.8)
--- NOTE | 2025-02-23 08:16 | XRay Report ---
XR chest 1V portable CLINICAL HISTORY: Chest pain, nonspecific COMPARISON STUDY: 01/19/2025 FINDINGS: No significant interval changes have occurred in a patient who demonstrates gross cardiomeg sheba and chronic pulmonary vascular congestion. There is no Radhika B line or pleural effusion. There i s no focal airspace opacity. There is no pneumothorax or atelectasis. Median sternotomy wire sutures are once again noted. There is a triple lead pacemaker/defibrillator i n place. IMPRESSION: Stable exam as described. No acute process. ACT 112: Negative or not required by law. Electronically signed by: Zuleika Hidalgo M.D. 02/23/2025 8:15 AM
[2025-02-23 08:17] LABS: Albumin Level 3.8 gm/dl (3.4-5.0); BUN Creatinine Ratio 17.2 (10-20); Bilirubin,Total 0.4 mg/dl (0.2-1.0); Calcium 8.7 mg/dl (8.6-10.3); Creatinine Clr Calc Pharmacy 40.9 ml/min; Globulin 3.7 gm/dl (2.5-4.0); Total Protein 7.5 gm/dl (6.0-8.3)
[2025-02-23 08:22] LABS: Troponin I High Sensitivity 10.6 pg/ml (0-20)
[2025-02-23 08:25] LABS: INR 1.6 (0.9-1.1); Prothrombin Time 16.3 Seconds (9.0-12.0)
[2025-02-23] MEDS: OPTIRAY 320 125ml IV ONE (08:48)
--- NOTE | 2025-02-23 09:04 | CT Scan Report ---
CT angio chest PE protocol CT DOSE: 812.37 mGy.cm HISTORY: 79 years-old Male with PE. Acute shortness of breath TECHNIQUE: Multiple CTA images of the chest were obtained after the intravenous administration of 90 ml Optiray. Coronal and sagittal MIPS were obtained from the axial data set and were submitted for r eview. All measurements were obtained according to NASCET criteria. A dose lowering technique was ut ilized adhering to the principles of ALARA. COMPARISON: Chest radiograph of same day, duplex venous Doppler study 01/20/2025 FINDINGS: CTA: Moderate to marked cardiomegaly. No pericardial effusion., However there are moderate pericardial liliya cifications. Median sternotomy with CABG. A left subclavian pacer. Atherosclerosis of the aorta witho ut aneurysm. Dilated main pulmonary artery measures 3.6 cm. No central pulmonary emboli. Suboptimal e valuation of the segmental and subsegmental branches secondary to contrast bolus timing. CT CHEST: Calcifications with subcentimeter nodules of the thyroid. Calcified mediastinal and hilar lymph nodes . Additionally, there are noncalcified lymph nodes measuring up to 10 mm. Trace pleural effusions. Emphysema with interlobular septal thickening and bronchial wall thickening. There is a mild bibasilar mucous plugging. 2.8 cm dependent groundglass opacity in the left upper lo be on image 163 series 4. Increased density of the gallbladder suggestive of vicarious excretion of contrast, sludge versus cho lelithiasis. Subcentimeter calcifications noted within the larisa hepatis. Cortical thinning of the ki dneys. Exophytic left renal cyst. Moderate fecal retention. Unremarkable soft tissues. No acute fract ure. IMPRESSION: 1. No pulmonary emboli identified. 2. Cardiomegaly with prior median sternotomy and CABG. Pericardial calcifications likely represents s equela of chronic pericarditis. 3. Pulmonary arterial hypertension. 4. Mild interstitial pulmonary edema with trace pleural effusions. 5. 2.8 cm dependent groundglass density of the left upper lobe is likely atelectatic. Attention on fo llow-up recommended in order to exclude a groundglass nodule. 6. Prior granulomatous disease. ACT 112: Negative or not required by law. The above report was generated using voice recognition software. It may contain grammatical, syntax o r spelling errors. Electronically signed by: Andry Nguyen M.D. 02/23/2025 9:02 AM
--- NOTE | 2025-02-23 10:00 | Electrocardiogram Report ---
Test Reason : Blood Pressure : */* mmHG Vent. Rate : 69 BPM Atrial Rate : 69 BPM P-R Int : 126 ms QRS Dur : 202 ms QT Int : 536 ms P-R-T Axes : 72 142 -36 degrees QTcB Int : 574 ms AV dual-paced rhythm Abnormal ECG When compared with ECG of 23-Feb-2025 07:40, Vent. rate has decreased by 6 bpm Confirmed by Ernesto Marin ([id number]) on 02/23/2025 10:00:20 AM Referred By: Confirmed By: Ernesto Marin
--- NOTE | 2025-02-23 10:00 | Electrocardiogram Report ---
Test Reason : Blood Pressure : */* mmHG Vent. Rate : 75 BPM Atrial Rate : 75 BPM P-R Int : 186 ms QRS Dur : 128 ms QT Int : 458 ms P-R-T Axes : 113 124 118 degrees QTcB Int : 511 ms AV dual-paced rhythm Abnormal ECG When compared with ECG of 21-Jan-2025 18:42, Vent. rate has decreased by 9 bpm Confirmed by Ernesto Marin ([id number]) on 02/23/2025 9:59:42 AM Referred By: Confirmed By: Ernesto Marin
[2025-02-23] MEDS: FUROSEMIDE 40 MG/4 ML VIAL IV STA (10:15)
[2025-02-23] MEDS: MoRPHine SULFATE 2 MG/ML CARP IV STA (10:32)
[2025-02-23] MEDS: ACETAMINOPHEN 325 MG TAB PO STA (10:33)
--- NOTE | 2025-02-23 10:40 | History & Physical Report ---
Date of Service February 23, 2025 Assessment & Plan (1) Chest pain: (2) Acute decompensated heart failure: (3) Ischemic cardiomyopathy: (4) Biventricular ICD (implantable cardioverter-defibrillator) in place: (5) Ventricular tachycardia: (6) GI bleed: (7) ROMAN (acute kidney injury): (8) Diabetes mellitus, type 2: (9) Hypertension: (10) PAD (peripheral artery disease): (11) Dyslipidemia: (12) Sleep apnea: Plan This is a 79yo M with a PMH of ischemic cardiomyopathy with EF 20%, atypical atrial flutter status post DCCV status post ablation in March 2021 on amiodarone and coumadin, VT/VF s/p ICD, CAD s/p CABG in 1997, history of LV apical thrombus on coumadin since , sinus bradycardia, DM II, HTN, BPH, mood disorder and other medical problems listed below who presents with left sided chest pain. Acute decompensated HFrEF Ischemic cardiomyopathy Last echocardiogram in June 2024 with EF of 20% Bilateral lower extremity 2+ edema in lower extremity on presentation CTA chest without pulmonary emboli, CM with pericardial calcifications likely representing sequela of chronic pericarditis, mild interstitial pulm edema with trace pleural effusions Given 40mg IV Lasix in ED Strict I&Os, low sodium diet, daily weights Repeat 2D echo ordered Routine cardiology consult Atypical CP Reproducible on exam Initial trop WNL, no EKG changes, pain did not improve with nitro given en route ? MSK vs Pericarditis-related as above Trend troponins for completeness, complex medical history Cards consulted as above History of recurrent V. tach, atypical atrial flutter Pacer summary report ordered Last EP cardiology note reviewed from December 06, 2024; started on Midodrine 2.5mg TID given recurrent syncope Given missed AM dose of amiodarone and Toprol, continue digoxin MWF Monitor lytes and replace as needed Hold Coumadin for now, INR 1.6 GI bleed Hgb 9.2 (decreased from hgb 13.3 1 month ago) Heme + stool on rectal exam Hold coumadin H&H Q6H Routine GI consult Protonix bolus and drip NPO except meds for now ROMAN Cr 1.57 (baseline 1.1) in setting of suspected GI bleed Given 40mg IV lasix for volume overload in ED Consult nephro for further recs given complex hx as above Chronic BLE wounds Open wounds in setting of BLE edema, treating with vasoline at home Wound care consult Wound culture ordered, empiric Rocephin for now Type 2 diabetes mellitus Hold home agents - patient unclear what insulin he is taking SSI while in-patient Glycemic consult placed BSG AC HS Hyperlipidemiacontinue Lipitor CAD status post CABG -continue Lipitor, hold aspirin for now given GI bleed OSAcontinue CPAP HS Mood disorderrcontinue sertraline DVT Ppx: holding coumadin as above Code status: DNR/DNI PCP: Trip Bush Dispo: Admitted to PCU Patient seen in collaboration with Dr. Garcia. Please see addendum. I spent a total of 75 minutes coordinating, documenting, and providing care for this patient excluding time spent in the performance of separately billed services or time spent by another provider/QHP. History of Present Illness Chief Complaint: CP, rectal bleed Primary Care Provider: Beth Bush, This is a 79yo M with a PMH of ischemic cardiomyopathy with EF 20%, atypical atrial flutter status post DCCV status post ablation in March 2021 on amiodarone and coumadin, VT/VF s/p ICD, CAD s/p CABG in 1997, history of LV apical thrombus on coumadin since , sinus bradycardia, DM II, HTN, BPH, mood disorder and other medical problems listed below who presents with left sided chest pain. Patient woke up with chest pain around 3 AM and pain has been sharp, constant and exacerbated with deep breaths. Received full dose aspirin and nitro x 2 en route to the hospital that did not improve pain. The 2 mg IV morphine given in ED helped. No associated SOB. Notable lower extremity swelling with open wounds with serous drainage. Has been treating with vasoline and wrapping at home, where he lives with . Denies any F/C, lightheadedness, N/V, abd pain, dysuri a, diarrhea or constipation. Bowel movements have been normal for him. Denies any BRBPR or black stool. Was admitted to [facility] 01/19-01/21 for stroke like symptoms/syncope without acute findings. Since discharge home, patient had another syncopal episode with unchanged EKG. PCP discussed with EP graphic design professor Dr. Cortez who recommended starting Midodrine 2.5mg TID. States he has felt less lightheaded since starting midodrine. Did not take any home medications today. Last echo was in June 2024 which showed EF of 20%; unchanged prior to before. Allergies Allergy/AdvReac Type Severity Reaction Status Date / Time No Known Allergies Allergy Unverified 02/23/25 09:30 Home Medications Medication Instructions Recorded Confirmed Type aspirin 81 mg tablet,delayed 81 mg PO QAM 08/10/23 02/23/25 History release atorvastatin 80 mg tablet 80 mg PO HS 08/10/23 02/23/25 History digoxin 125 mcg (0.125 mg) tablet 125 mcg PO 3XWK 08/10/23 02/23/25 History finasteride 5 mg tablet 5 mg PO HS 08/10/23 02/23/25 History furosemide 40 mg tablet 40 mg PO BID 08/10/23 02/23/25 History insulin degludec 100 unit/mL (3 7 unit subcut QAM 08/10/23 02/23/25 History mL) subcutaneous pen (Tresiba FlexTouch U-100 insulin) metformin 1,000 mg tablet 1,000 mg PO BID 08/10/23 02/23/25 History semaglutide 1 mg/dose (4 mg/3 mL) 4 mg subcut Q7D 08/10/23 02/23/25 History subcutaneous pen injector (Ozempic) sertraline 50 mg tablet 75 mg PO DAILY 08/10/23 02/23/25 History vit C 250 mg-vit E 90 mg-zinc 40 1 tab PO BID ##0 08/10/23 02/23/25 History mg-copper 1 [id number] capsule (PreserVision AREDS-2) warfarin 10 mg tablet See Rx Instructions .Route .COMPLEX 08/10/23 02/23/25 History amiodarone 200 mg tablet 200 mg PO BID #60 tabs 08/12/23 02/23/25 Rx dapagliflozin propanediol 10 mg 0 mg PO DAILY 02/23/25 02/23/25 History tablet (Farxiga) metoprolol succinate 25 mg 25 mg PO DAILY 02/23/25 02/23/25 History tablet,extended release 24 hr midodrine 2.5 mg tablet 2.5 mg PO TID 02/23/25 02/23/25 History potassium chloride 20 mEq 20 meq PO DAILY 02/23/25 02/23/25 History tablet,extended release(part/cryst) Past Med/Surg History Problem List (Updated 02/23/25 @ 15:02 by Grace Jones PA-C) Anemia Cellulitis, leg Acute on chronic heart failure with reduced ejection fraction (HFrEF, <= 40%) and combined systolic and diastolic dysfunction Pleuritic chest pain GI bleed ROMAN (acute kidney injury) Acute decompensated heart failure CHF (congestive heart failure) (Acute) Chest pain (Acute) Acute GI bleeding (Acute) History of prior use of snuff Leukoplakia of oral cavity Generalized gingival recession, severe Type 2 diabetes mellitus with obesity Rib injury (Acute) Vitamin D deficiency (Chronic) Dyslipidemia (Chronic) Left nephrolithiasis (Chronic) Hypertension (Acute) Renal cyst (Acute) Multiple cysts in Left kidney-3.4cm Renal stone (Acute) Left interpolar region 8mm Fall (Acute) Weakness (Acute) AMS (altered mental status) (Acute) Stroke-like episode Osteomyelitis Traumatic open wound of left lower leg with delayed healing (Acute) Diabetic ulcer of toe of left foot (Acute) Biventricular ICD (implantable cardioverter-defibrillator) in place Syncope (Acute) Ventricular tachycardia (Acute) Syncope and collapse Syncope Cellulitis of leg, left PAD (peripheral artery disease) (Acute) Diabetic ulcer of left heel (Acute) Diabetic ulcer of left great toe (Acute) Diabetic ulcer of right great toe (Acute) Diabetic foot ulcer Diabetic ulcer of toe associated with diabetes mellitus due to underlying condition, limited to breakdown of skin Encounter for pre-operative examination Umbilical hernia (Chronic) ICD (implantable cardioverter-defibrillator) in place Biventricular ICD upgrade 08/2020 Medtronic- h/o ICD discharge 10/2020 x 2 per 01/2021 ICD check Sleep apnea cpap BPH (benign prostatic hyperplasia) Hypertension Chronic systolic CHF (congestive heart failure) Severe LV dysfunction Paroxysmal atrial flutter Ischemic cardiomyopathy EF= 13% on 10/2020 stress test Diabetes mellitus, type 2 Medical History History of kidney stones Hypokalemia History of cardioversion 2020, [facility] Hx of angiography 12/2023, [facility] LBBB (left bundle branch block) Follows with dr. bush [facility] Apical mural thrombus History of- on chronic Coumadin Depression Anxiety CAD (coronary artery disease) S/p 3 vessel bypass 1997 On anticoagulant therapy warfarin daily Myocardial Infarction x3--last 1997--follows with Dr. Bang Bush Hyperlipidemia Surgical History History of lithotripsy multiple--last 10/2020 @ [facility] History of kidney surgery ureter englarged History of amputation of great toe bilateral History of surgery left leg vein removed for bypass History of carpal tunnel surgery of right wrist History of colonoscopy History of appendectomy History of tonsillectomy and adenoidectomy History of bilateral cataract extraction History of cardiac cath x1[place] [facility] [place], [place]G History of implantable cardioverter-defibrillator (ICD) placement inserted 01/2007, replaced 02/2016, upgraded to BiV ICD on 09/19/20--[employer] S/P triple [place] [facility] [place] Family History Other No family history of adverse response to anesthesia Social History Smoking Status: Former smoker Tobacco Type: Cigarettes Second Hand Exposure: Yes ( smokes); Do You Dip or Chew Tobacco: Yes (1 can/4-5 days; advised); Hx Alcohol Use: Yes Alcohol type: beer Alcohol Intake Frequency: Monthly or Less Hx Substance Use: No Preferred Language: Divehi Communication Ability: Effective Visual Impairment: Limited Hearing Ability: Hard of Hearing Hog Scalder Required: No Beliefs That Will Affect Care: None marital status: Current Living Situation: Spouse Feels Safe at Home: Yes Diet: regular Assistive Devices: Cane and Walker Review of Systems Review of Systems: At least ten systems reviewed and negative except as noted in the HPI. Physical Exam Physical Exam: General Appearance: WD/WN, vitals as above, NAD, sitting up in bed, chronically ill appearing Head: normocephalic, atraumatic Eyes: normal inspection, PERRL, conjunctivae normal, anicteric sclerae ENT: external ear and nose normal, oropharynx normal Neck: normal visual inspection, trachea midline, no thyromegaly Respiratory: normal respiratory effort, +diminished at bases. No accessory muscle use Cardiovascular: regular rate, rhythm, normal peripheral pulses, 2+ BLE edema Chest: normal inspection of chest, L chest pain reproducible on palpation Abdomen/GI: normal bowel sounds, soft, nontender, no hepatosplenomegaly Extremities/Musculoskeletal: no cyanosis or clubbing, extremities motor strength 5/5 Neurologic: PERRL, EOMI, accommodation nl, no face palsy, no dysarthria, CN's II-XI intact bilaterally and moves all extremities Psychiatric: A+Ox3, euthymic affect, poor insight Skin: normal color, warm/dry, + BLE wounds with serous drainage on shins, erythema Results & Data Results & Data Vital Signs (Past 12 Hours) Vital Signs Temp Pulse Pulse Resp BP BP Pulse Ox 02/23/25 10:12 71 19 112/63 94 02/23/25 09:05 70 19 106/64 96 02/23/25 08:09 70 02/23/25 07:56 70 19 124/71 02/23/25 07:54 71 17 98 02/23/25 07:40 36.5 C 69 18 124/71 98 O2 Del Method 02/23/25 10:12 Room Air 02/23/25 09:05 Room Air 02/23/25 08:09 02/23/25 07:56 02/23/25 07:54 Room Air 02/23/25 07:40 Room Air Laboratory Results Short CBC 02/23/25 Range/Units 07:43 WBC 7.77 (4.8-10.8) K/ul Hgb 9.2 L (14.0-18.0) g/dl Hct 29.8 L (42.0-52.0) % Plt Count 263 (130-400) K/uL BMP 02/23/25 07:43 Sodium 141 Potassium 4.0 Chloride 106 Carbon Dioxide 27 BUN 27 H Creatinine 1.57 H Glucose 187 H Calcium 8.7 Liver Function 02/23/25 Range/Units 07:43 Total Bilirubin 0.4 (0.2-1.0) mg/dl AST 40 H (13-39) U/L ALT 31 (7-52) U/L Alkaline Phosphatase 93 (34-104) U/L Albumin 3.8 (3.4-5.0) gm/dl Diagnostic Findings Chest X-Ray 02/23/25 07:39 XR chest 1V portable CLINICAL HISTORY: Chest pain, nonspecific COMPARISON STUDY: 01/19/2025 FINDINGS: No significant interval changes have occurred in a patient who demonstrates gross cardiomegaly and chronic pulmonary vascular congestion. There is no Radhika B line or pleural effusion. There is no focal airspace opacity. There is no pneumothorax or atelectasis. Median sternotomy wire sutures are once again noted. There is a triple lead pacemaker/defibrillator in place. IMPRESSION: Stable exam as described. No acute process. ACT 112: Negative or not required by law. Electronically signed by: Zuleika Hidalgo M.D. 02/23/2025 8:15 AM Chest CTA 02/23/25 08:29 CT angio chest PE protocol CT DOSE: 812.37 mGy.cm HISTORY: 79 years-old Male with PE. Acute shortness of breath TECHNIQUE: Multiple CTA images of the chest were obtained after the intravenous administration of 90 ml Optiray. Coronal and sagittal MIPS were obtained from the axial data set and were submitted for review. All measurements were obtained according to NASCET criteria. A dose lowering technique was utilized adhering to the principles of ALARA. COMPARISON: Chest radiograph of same day, duplex venous Doppler study 01/20/2025 FINDINGS: CTA: Moderate to marked cardiomegaly. No pericardial effusion., However there are moderate pericardial calcifications. Median sternotomy with CABG. A left subclavian pacer. Atherosclerosis of the aorta without aneurysm. Dilated main pulmonary artery measures 3.6 cm. No central pulmonary emboli. Suboptimal evaluation of the segmental and subsegmental branches secondary to contrast bolus timing. CT CHEST: Calcifications with subcentimeter nodules of the thyroid. Calcified mediastinal and hilar lymph nodes. Additionally, there are noncalcified lymph nodes measuri ng up to 10 mm. Trace pleural effusions. Emphysema with interlobular septal thickening and bronchial wall thickening. There is a mild bibasilar mucous plugging. 2.8 cm dependent groundglass opacity in the left upper lobe on image 163 series 4. Increased density of the gallbladder suggestive of vicarious excretion of contrast, sludge versus cholelithiasis. Subcentimeter calcifications noted wit hin the larisa hepatis. Cortical thinning of the kidneys. Exophytic left renal cyst. Moderate fecal retention. Unremarkable soft tissues. No acute fracture. IMPRESSION: 1. No pulmonary emboli identified. 2. Cardiomegaly with prior median sternotomy and CABG. Pericardial calcifications likely represents sequela of chronic pericarditis. 3. Pulmonary arterial hypertension. 4. Mild interstitial pulmonary edema with trace pleural effusions. 5. 2.8 cm dependent groundglass density of the left upper lobe is likely atelectatic. Attention on follow-up recommended in order to exclude a grou ndglass nodule. 6. Prior granulomatous disease. ACT 112: Negative or not required by law. The above report was generated using voice recognition software. It may contain grammatical, syntax or spelling errors. Electronically signed by: Andry Nguyen M.D. 02/23/2025 9:02 AM ECG Additional Comments: EKG reviewed personally - AV dual paced rhythm at 75 bpm Supervising Physician Co-Signing Physician Notes Pt was seen and examined by myself, Lissett Garcia MD on the day of service. Care was coordinated with Dayana Rock PA-C. Pt was seen with his present at bedside. hard of hearing, pleasant. RRR. lower extremities with erythema and draining wounds Pt and deny any episodes of hematochezia, melena, hemoptysis, hematemesis, or epistaxis. Notes chest pain, chronic lower extremity wounds. EKG without signs of ischemia, trop negative Hgb trending down with noted positive FOBT testing Gi consulted, appreciate recs Cardiology consulted, appreciate recs. Received dose of Lasix in the ED Consult Nephrology with ROMAN and need for diuresis Wound care consult Otherwise as above. I spent a total [id number] coordinating, documenting, and providing care for this patient excluding time spent in the performance of separately billed services (1) Chest pain Chest pain type: unspecified Qualified Code(s): R07.9 - Chest pain, unspecified
[2025-02-23] MEDS: PANTOprazole 80 MG in DEXTROSE 5% 100 ML IV ONE (10:54)
[2025-02-23] MEDS: PANTOprazole 40 MG in DEXTROSE 5% MINI-B 100 ML IV SCH (10:55)
[2025-02-23] MEDS: PANTOPRAZOLE BOLUS/DRIP IV STA (11:01)
--- OUTSIDE RECORDS SUMMARY | 2025-02-23 11:34 | External Medical Summary | Summary of Care ---
Author Name Unknown Organization [facility] Address [address] [facility] [address] Phone [phone] Care Team Providers Care Auto Adjudication Specialist Name Role Phone Beth Mcginnis DO Primary Care Provider Encounter Details Date Type Department Care Team (Late st Contact Info) Description 02/03/[address] [facility] [address] [place] [address] Beth Mc[facility]innis DO [address] [facility] [address] Allergies No known active allergiesdocumented as of this encounter (statuses as of 02/03/2025) Medications OMEGA-3 FATTY ACIDS 1000 MG OR [...] the evening. Take with meals. Obtaining from [employer] PAP. Active Metoprolol Succinate ER 25 MG [...] minutes 25 Tablet 5 03/29/20 24 Active Warfarin Sodium 10 MG Oral [...] mouth in the morning. 10/17/20 24 Active metFORMIN HCl 1000 MG Oral Tablet (Glucophage) Take 1 Tablet by mouth in the morning and 1 Tablet before bedtime. 180 Tablet 1 12/11/19 25 Active Finasteride 5 MG Oral Tablet (Proscar)Indicatio ns:Nodular prostate with urinary obstruction TAKE 1 TABLET EVERY DAY 90 Tablet 1 01/02/20 25 Active Midodrine HCl 2.5 MG Oral Tablet (Proamatine)Indica tions:Orthostatic hypotension Take 1 Tablet by mouth in the morning and 1 Tablet at noon and 1 Tablet in the evening. 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 Pt stated understanding and stated he will try to get here Thursday. * Telephone Encounter - Beth Mcginnis DO - 02/03/2025 2:19 PM EDT Please call to check on pt to see how he is doing. His labs from last week showed elevated liver function test Is he having any abodminal pain? I would like these repeated if possible in the next 1-3 days. documented in this encounter Plan of Treatment Upcoming Encounters Date Type Department Care Team (Late st Contact Info) Description 02/28/2025 11:30 AM EDT Office Visit Cardiology, [facility] [address] [place] [id number] Lea Steele CRNP [address] [place] [address] 03/01/2025 1:00 PM EDT Anticoagulation Pharmacy, [place] [phone] [facility] [address] [address] 03/01/2025 1:10 PM EDT Office Visit Pharmacy, [place] [facility] [address] [place] [phone] [facility] [address] [address] 03/02/2025 11:10 AM EDT Office Visit Family Practice, [place] [phone] Beth Mcginnis DO [address] [place] [address] 03/31/2025 11:50 AM EDT Office Visit Family Practice, [place] [address] Beth Mcginnis DO [address] [place] [id number] 11/06/2025 10:30 AM EST Office Visit Cardiology, [facility] [address] [place] [address] Bang Mgcinnis O, DO [address] [place] [address] Scheduled Orders Name Type Priority Associated Diagnoses Orde r Schedule HEPATIC FUNCTION PANEL Lab Routine Elevated LFTs Expected: 02/03/2025, Expires: 04/28/2025 LIPASE Lab Routine Elevated LFTs Expected: 02/03/2025, Expires: 04/28/2025 BASIC METABOLIC PANEL Lab Routine Elevated LFTs Expected: 02/03/2025, Expires: 04/28/2025 Health Maintenance Due Date Last Done Comments DXA Scan 1945 Adult Wellness Visit 01/01/2019 01/01/2018 Diabetic Eye Exam 06/10/2024 06/10/2023, , 06/09/2023, Additional history exists COVID-19 Vaccine ( season) 2024 11/19/2021, 03/02/2021, 02/08/2021 Depression Monitoring 03/30/2025 03/30/2024 HbA1c 07/30/2025 01/27/2025, 07/24, 03/02/2024, Additional history exists Albumin/Creatinine Ratio 12/06/2025 025, 08/28/2023, 03/14/2022, Additional history exists B-12 12/06/2025 12/06/2024, 04/2023, 03/14/2022, Additional history exists DIG LEVEL FOR MEDICATION MONITORING YEARLY 12/06/2025 12/06/2024, 04/27/2023, 07/03/2021 GFR 01/27/2026 01/27/2025, 08/23, 03/02/2024, Additional history exists DTap/Tdap Vaccines (3 - [...] on patient's age to complete this topic Meningitis B Vaccine (Bexsero/Trumemba) Aged Out No longer eligible based on patient's age to complete this topic Zoster Vaccines Discontinued documented as of this encounter Medical Devices Not on filedocumented as of this encounter Visit Diagnoses Diagnosis Elevated LFTs- Primary Other abnormal blood chemistry documented [...] of Attor ale? No Care Teams Auto Adjudication Specialist Relationship Specialty Start Date End Date Beth Mcginnis DO PCP - General 08/28/10 documented as of this encounter
--- OUTSIDE RECORDS SUMMARY | 2025-02-23 11:34 | External Medical Summary ---
Author Name Unknown Address Unknown Organization K01:[facility] [place] [address] [place] [address] Laboratory Report Ordering Provider Test Date Status ANG ALLEN 02/06/2025 10:48:50 Final Observation Date Value Abnormality Reference (Units ) Status BUN 02/06/2025 10:48:50 18 6-20 (mg/dL) Final Creatinine 02/06/2025 10:48:50 1.2 0.6-1.2 (mg/dL) Final Glomerular filtration rate/1.73 sq M.predicted [Volume Rate/Area] in Serum, Plasma or Blood by Creatinine-based formula (CKD-EPI) 02/06/2025 10:48:50 64 >=60 (mL/min) Final eGFR is calculated based on the CKD-EPI 2020 equation. Sodium 02/06/2025 10:48:50 140 135-146 (m mol/L) Final Potassium 02/06/2025 10:48:50 4.4 3.5-5.1 (m mol/L) Final Cl 02/06/2025 10:48:50 103 98-107 (mm ol/L) Final CO2 02/06/2025 10:48:50 25 22-32 (mmo l/L) Final Anion gap 02/06/2025 10:48:50 12 7-15 (mmol /L) Final Glucose 02/06/2025 10:48:50 170 Above high normal 70 -120 (mg/dL) Final Calcium 02/06/2025 10:48:50 8.4 8.4-10.2 ( mg/dL) Final Performing Location [facility] [place] [address] [place] [address]
--- OUTSIDE RECORDS SUMMARY | 2025-02-23 11:34 | External Medical Summary | Summary of Care ---
Author Name Unknown Organization [facility] Address [address] [facility] [address] Phone [phone] Care Team Providers Care Receiving Weigher Name Role Phone Beth Mcginnis DO Primary Care Provider Encounter Details Date Type Department Care Team (Late st Contact Info) Description 02/08/2025 Telephone Formerly Named [facility] [address] [facility] [place] [address] Beth Mcginnis DO [address] [facility] [address] Allergies No known active allergiesdocumented as of this encounter (statuses as of 02/08/2025) Medications OMEGA-3 FATTY ACIDS 1000 MG OR [...] the evening. Take with meals. Obtaining from [employer] PAP. 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 Also we can repeat again in February when I see him, as they are not back to normal yet. documented in this encounter Plan of Treatment Upcoming Encounters Date Type Department Care Team (Late st Contact Info) Description 02/28/2025 11:30 AM EDT Office Visit Cardiology, [facility] [address] [facility] [place] [address] Lea Steele CRNP [address] [place] [phone] 03/01/2025 1:00 PM EDT Anticoagulation Pharmacy, [place]onda [place] [phone] Rhonda [facility] [address] [place] [address] 03/01/2025 1:10 PM EDT Office Visit Pharmacy, [place] [phone] [facility] [address] [place], [place] [address] 03/02/2025 11:10 AM EDT Office Visit Family Practice, [place]onda [place] [phone] Beth Mcginnis, DO [address] [place] [address] 03/31/2025 11:50 AM EDT Office Visit Family [facility], [place]onda [place] [phone] Beth Mcginnis, DO [address] [place] [address] 11/06/2025 10:30 AM EST Office Visit Cardiology, [facility] [address] [place] [address] Bang Mcginnis, DO [address] [place] [address] Health Maintenance Due Date Last Done Comments [...] MONITORING YEARLY 12/06/2025 12/06/2024, 04/27/2023, 07/03/2021 GFR 02/06/2026 02/06/2025, 05/2025, 09/02/2024, Additional history exists DTap/Tdap Vaccines (3 - [...] Power of Attor ale? No Care Teams Receiving Weigher Relationship Specialty Start Date End Date Beth Mcginnis DO PCP - General 08/28/10 documented as of this encounter
--- OUTSIDE RECORDS SUMMARY | 2025-02-23 11:34 | External Medical Summary | Summary of Care ---
Author Name Unknown Organization [facility] Address [address] [facility] [address] Phone [phone] Care Team Providers Care Software Test Manager Name Role Phone Beth Mcginnis DO Primary Care Provider Encounter Details Date Type Department Care Team (Late st Contact Info) Description 02/03/2025 Telephone [facility] 226 [facility] [place] [address] Beth Mcginnis DO 226 [facility] [address] Allergies No known active allergiesdocumented [...] the evening. Take with meals. Obtaining from [employer] PAP. 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 0 [...] mRNA, LNP-s, No Pre serve, 2-Dose Series ([employer]) 11/19/2021,03/02/2021,02/08/2021 Diptheria/Tetanus (Adult) 11/23/1995 Pneumococcal Conjugate Vacc, [...] 02/28/2025 11:30 AM EDT Office Visit Cardiology, [facility] [address] [place] [address] Lea Steele CRNP [address] [place] [address] 03/01/2025 1:00 PM EDT Anticoagulation Pharmacy, [place] [phone] [facility] [address] [facility] [address] 03/01/2025 1:10 PM EDT Office Visit Pharmacy, [place] Osmanyrajinder Fernandez Osm[address]inder [address] [place] [phone] [facility] [address] [facility] [address] 03/02/2025 11:10 AM EDT Office Visit Family Practice, [place] [phone] Beth Mcginnis DO [address] [place] [address] 03/31/2025 11:50 AM EDT Office Visit Family Practice, [place] [address] Beth Mcginnis DO [address] [place] [address] 11/06/2025 10:30 AM EST Office Visit Cardiology, [facility] [address] [place] [address] Bang Mcginnis O, DO [address] [place] [address] Scheduled Orders Name Type Priority Associated Diagnoses [...] Power of Attor ale? No Care Teams Software Test Manager Relationship Specialty Start Date End Date Beth Mcginnis DO PCP - General 08/28/10 documented as of this encounter
--- OUTSIDE RECORDS SUMMARY | 2025-02-23 11:34 | External Medical Summary | Summary of Care ---
Author Name Unknown Organization [facility] Address [address] [facility] [address] Phone [phone] Care Team Providers Care Stock Feeder Name Role Phone Beth Mcginnis DO Primary Care Provider [phone] Encounter Details Date Type Department Care Team (Late st Contact Info) Description 02/08/[address] [facility] [address] [facility] [place] [address] Bteh Mcginnis DO 226 [facility] [address] Allergies No known active allergiesdocumented as of this encounter (statuses as of 02/22/2025) Medications OMEGA-3 FATTY ACIDS 1000 MG OR [...] the evening. Take with meals. Obtaining from [employer] PAP. 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 Patient has no further questions. * Telephone Encounter - Alfreda Richard LPN - 02/20/2025 12:19 PM EDT left a message for patient to call the office. Give message below from Dr Greco * Telephone Encounter - Beth Mcginnis DO [...] 02/28/2025 11:30 AM EDT Office Visit Cardiology, [facility] [address] [place] [phone] Lea Steele CRNP [address] [place] [address] 03/01/2025 1:00 PM EDT Anticoagulation Pharmacy, Rhonda Fischer Renee Fernandez Carolinerafael [place] [phone] [facility] [address] [facility] [place] [address] 03/01/2025 1:10 PM EDT Office Visit Pharmacy, Rhonda Fischer Renee Fernandez Osmanyrajinder [place] [phone] [place] [address] [address] [facility] [place] [address] 03/02/2025 11:10 AM EDT Office Visit Family [facility], [place] Osmanyrajinder Fernandez Osmanyrajinder [place] [phone] Beth Mcginnis DO [address] [place] [address] 03/31/2025 11:50 AM EDT [facility] [place]inder [place] [phone] Beth Mcginnis, DO [address] [place] [address] 11/06/2025 10:30 AM EST Office Visit Cardiology, [facility] [address] [place] [phone] Bang Mcginnis DO [address] [place] [address] Health Maintenance Due Date Last Done Comments [...] Power of Attor ale? No Care Teams Stock Feeder Relationship Specialty Start Date End Date Beth Mcginnis DO PCP - General 08/28/10 documented as of this encounter
--- OUTSIDE RECORDS SUMMARY | 2025-02-23 11:34 | External Medical Summary | Summary of Care ---
Author Name Unknown Organization [facility] Address [address] [facility] [address] Phone [phone] Care Team Providers Care Computer Methods Analyst Name Role Phone Beth Mcginnis DO Primary Care Provider Encounter Details Date Type Department Care Team (Late st Contact Info) Description 02/08/2025 Telephone [facility] 226 [facility] [place] [address] Beth Mcginnis DO [address] [facility] [address] Allergies No known active allergiesdocumented as of this encounter (statuses as of 02/20/2025) Medications OMEGA-3 FATTY ACIDS 1000 MG OR [...] the evening. Take with meals. Obtaining from [employer] PAP. 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 08/12/2005 Ischemic cardiomyopathy documented as of this encounter (statuses as of 02/20/2025) Resolved Problems Problem Noted Date Diagnosed Date [...] as of this encounter (statuses as of 02/20/2025) Immunizations Name Administration Dates Next Due COVID-19 mRNA, LNP-s, No Pre serve, 2-Dose Series ([employer]) 11/19/2021,03/02/2021,02/08/2021 Diptheria/Tetanus (Adult) 11/23/1995 Pneumococcal Conjugate Vacc, [...] encounter Miscellaneous Notes * Telephone Encounter - Alfreda Richard LPN [...] 02/28/2025 11:30 AM EDT Office Visit Cardiology, [facility] [address] [place] [phone] Lea Steele CRNP [address] [place] [address] 03/01/2025 1:00 PM EDT Anticoagulation Pharmacy, [place] [phone] [facility] [address] [facility] [address] 03/01/2025 1:10 PM EDT Office Visit Pharmacy, [place] [phone] [facility] [address] [facility] [address] 03/02/2025 11:10 AM EDT Office Visit Family Practice Rhonda EllisJ[place] [phone] Beth Mcginnis DO [address] [place] [address] 03/31/2025 11:50 AM EDT Office Visit [place] [address] Beth Mcginins DO [address] [place] [address] 11/06/2025 10:30 AM EST Office Visit Cardiology, [facility] [address] [place] [phone] Bang Mcginnis O, DO [address] [place] [address] Health Maintenance Due Date Last Done Comments [...] 12/06/2025 12/06/2024, 04/27/2023, 07/03/2021 GFR 02/06/2026 02/06/2025, 030 05/2025, 09/02/2024, Additional history exists DTap/Tdap Vaccines [...] Power of Attor ale? No Care Teams Computer Methods Analyst Relationship Specialty Start Date End Date Beth Mcginnis DO PCP - General 08/28/10 documented as of this encounter
--- OUTSIDE RECORDS SUMMARY | 2025-02-23 11:34 | External Medical Summary ---
Author Name Unknown Address Unknown Organization K01:[facility] [place] [address] [place] [address] Laboratory Report Ordering Provider Test Date Status ALEJANDROABDIGERRY 02/06/2025 10:48:50 Final Observation Date Value Abnormality Reference (Units ) Status Albumin 02/06/2025 10:48:50 3.4 Below low normal 3.8-5.0 (g/dL) Final AST (Aspartate aminotransferase) 02/06/2025 10:48:50 73 Above high normal 10-50 (U/L) Final Alk Phos 02/06/2025 10:48:50 113 35-130 (U/L) Final ALT (Alanine aminotransferase) 02/06/2025 10:48:50 111 Above high normal 10-50 (U/L) Final Bilirubin, Total 02/06/2025 10:48:50 0.4 <=1.2 (mg/dL) Final Bilirubin, Direct 02/06/2025 10:48:50 0.2 0.0-0.3 (mg/dL) Final Protein 02/06/2025 10:48:50 5.8 Below low normal 6.0-8.3 (g/dL) Final Performing Location [facility] [place] [facility] [address] [place] [address]
--- OUTSIDE RECORDS SUMMARY | 2025-02-23 11:34 | External Medical Summary | Summary of Care ---
Author Name Unknown Organization [facility] Address [address] [facility] [address] Phone [phone] Care Team Providers Care Cloth Doffer Name Role Phone Beth Mcginnis Primary Care Provider [phone] Reason for Visit * Reason Comments Outpatient Testing Encounter Details Date Type Department Care Team (Late st Contact Info) Description 02/06/2025 10:50 AM EDT Laboratory Laboratory, [facility] 226 [place] [address] [facility] [address] [place] [address] Elevated LFTs Allergies No known active allergiesdocumented as of this encounter (statuses as of 02/06/2025) Medications OMEGA-3 FATTY ACIDS 1000 MG OR [...] the evening. Take with meals. Obtaining from [employer] PAP. 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 0 08/12/2005 Ischemic cardiomyopathy documented as of this encounter (statuses as of 02/06/2025) Resolved Problems Problem Noted Date Diagnosed Date [...] as of this encounter (statuses as of 02/06/2025) Immunizations Name Administration Dates Next Due COVID-19 mRNA, LNP-s, No Pre serve, 2-Dose Series ([employer]) 11/19/2021,03/02/2021,02/08/2021 Pneumococcal Conjugate Vacc, 13 Valent (Prevnar) [...] 02/28/2025 11:30 AM EDT Office Visit Cardiology, [facility] 132 [facility] [place] [address] Lea Steele CRNP [address] [place] [address] [place] [address] 03/01/2025 1:00 PM EDT Anticoagulation Pharmacy, [address] [place] [phone] [facility] [address] [facility] [place] [address] 03/01/2025 1:10 PM EDT Office Visit Pharmacy, [address] EllisJ[place] [phone] Rhonda [facility] [address] [facility] [place] [address] 03/02/2025 11:10 AM EDT Office Visit [facility] Rhonda EllisJ[place] [phone] Beth Mcginnis, DO [address] [place] [address] 03/31/2025 11:50 AM EDT Office Visit [facility] Rhonda EllisJOHN [phone] Beth Mcginnis, DO [address] EllisJ[place] [address] 11/06/2025 10:30 AM EST Office Visit Cardiology, [facility] [address] [place] [address] Bang Mcginnis, DO [address] [place] [address] Pending Results Name Type Priority Associated Diagnoses Date /Time HEPATIC FUNCTION PANEL Lab Routine Elevated LFTs 02/06/2025 10:48 AM EDT LIPASE Lab Routine Elevated LFTs 02/06/2025 10:48 AM EDT BASIC METABOLIC PANEL Lab Routine Elevated LFTs 02/06/2025 10:48 AM EDT Health Maintenance Due Date [...] Diagnosis Elevated LFTs Other abnormal blood chemistry documented in this [...] Power of Attor ale? No Care Teams Cloth Doffer Relationship Specialty Start Date End Date Beth Mcginnis DO PCP - General 08/28/10 documented as of this encounter
--- OUTSIDE RECORDS SUMMARY | 2025-02-23 11:34 | External Medical Summary | Summary of Care ---
Author Name Unknown Organization [facility] Address [address] [facility] [address] Phone [phone] Care Team Providers Care Mathematics Faculty Member Name Role Phone Lalivladimir Beth Trip LING Primary Care Provider Reason for Visit * Reason Comments Dosage Adjustment Via Phone (anticoag Cl inic) Status Check Diabetes Follow-Up Encounter Details Date Type Department Care Team (Late st Contact Info) Description 02/03/2025 10:30 AM EDT Telemedicine Pharmacy, [facility] [address] [place] [address] [place], [facility] [address] [place] [address] Type 2 diabetes mellitus with hemoglobin A1c goal of less than 8.0% ([facility])*; Type 2 diabetes mellitus with diabetic nephropathy, [...] the evening. Take with meals. Obtaining from [employer] PAP. 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 - 02/03/2025 10:36 AM EDT Patient Phone Numbers Called and spoke to patient's , Milvia. The last two days, patient has been doing great-- they forgot to skip the ozempic this past Thursday (as was instructed by PCP at most recent visit), and took 1 mg dose. States that the last 2 days, his appetite has improved and his energy. States that he thinks that the BP medications are helping. Follow up as scheduled on 03/01/25 Faye Anderson, PharmD, BCACP Clinical Pharmacist Medication Therapy Disease Management 02/03/2025, 10:43 AM documented in this encounter Plan of Treatment Upcoming Encounters Date Type Department Care Team (Late st Contact Info) Description 02/28/2025 11:30 AM EDT Office Visit Cardiology, [facility] 132 [facility] [place] [address] Lea Steele CRNP [address] [place] [address] [place] [address] 03/01/2025 1:00 PM EDT Anticoagulation Pharmacy, [place] [phone] [place] [address] [address] [facility], [place] [address] 03/01/2025 1:10 PM EDT Office Visit Pharmacy, [place] [phone] [facility] [address] [facility] [address] 03/02/2025 11:10 AM EDT Office Visit [facility] [place] [phone] Beth Mcginnis DO [address] [place] [address] 03/31/2025 11:50 AM EDT Office Visit [place] [phone] Beth Mcginnis, DO [address] [place] [address] 11/06/2025 10:30 AM EST Office Visit Cardiology, [facility] [address] [place] [address] Bang Mcginnis DO [address] [place] [address] Health Maintenance Due Date Last Done Comments [...] Power of Attor ale? No Care Teams Mathematics Faculty Member Relationship Specialty Start Date End Date Beth Mcginnis DO PCP - General 08/28/10 documented as of this encounter
--- OUTSIDE RECORDS SUMMARY | 2025-02-23 11:35 | External Medical Summary | Summary of Care ---
Author Name Unknown Organization [facility] Address [address] [facility] [facility] [address] Phone [phone] Care Team Providers Care Animal Assisted Therapist Name Role Phone Beth Mcginnis DO Primary Care Provider [phone] Reason for Visit * Reason Comments Hospital Follow-Up Pt is here and daughter she states that pt is here for hospital discharge. Encounter Details Date Type Department Care Team (Late st Contact Info) Description 01/27/2025 11:30 AM EST [facility] [address] [facility] [place] [phone] Beth Mcginnis DO [address] [place] [address] [place] [address] Type 2 diabetes mellitus with diabetic nephropathy, with long-term current use of insulin ([facility])*; Orthostatic hypotension; Ischemic cardiomyopathy; VT (ventricular tachycardia) ([facility]); Nausea and vomiting, unspecified vomiting type; Jaundice Allergies No known active allergiesdocumented as of this encounter (statuses as of 01/27/2025) Medications OMEGA-3 FATTY ACIDS 1000 MG OR [...] CPAP every night at bedtime. Active FreeStyle Judiht 2 Sensor Use as directed . Change [...] Warfarin Sodium 10 MG Oral Tablet (Coumadin)Indicati ons:detention current use of anticoagulant therapy,Sustained VT (ventricular [...] evening. 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 (Household - for ages [...] Sign Reading Time Taken Comments Blood Pressure 91/58 01/27/2025 11:36 AM EST Pulse 82 01/27/2025 11:36 AM EST Temperature 36 °C (96.8 °F) 01/27/2025 11:36 AM EST Respiratory Rate 16 01/27/2025 11:36 AM EST Oxygen Saturation 98% 01/27/2025 11:36 AM EST Inhaled Oxygen Concentration - - Weight 84.5 kg (186 lb 4.8 oz) 01/27/2025 11:36 AM EST Height 175.3 cm (5' 9") 01/27/2025 11:36 AM EST Body Mass Index 27.51 01/27/2025 11:36 AM EST documented in this encounter Patient Instructions * Patient Instructions* Penny Katz LPN - 01/27/2025 11:33 AM EST Osteoporosis: Screening for Bone Loss The strength of bones is measured by their density (thickness). High bone density means bones are less likely to fracture. If you are at risk for bone loss, your healthcare provider may refer you forbone density testing. Bone Density Testing Bone density testing is safe, quick, easy, and painless. Testing can detect osteoporosis before a fracture happens. It can also predict the risk of future fractures. And testing can measure the response to treatment. There are two types of tests that you may have: •Peripheral tests are used for screening. They measure density in the finger, wrist, knee, howe, or heel. A common peripheral test is the quantitative ultrasound (QUS). •Central tests are used for diagnosis. They measure density in the hip or spine. The main centraltest is the dual energy x-ray absorptiometry (DXA). The DXA is the standard bone density test. Who Should Be Tested? •All postmenopausal women under age 65, with one or more risk factors in addition to menopause. •All women age 65 and older. •Postmenopausal women with fractures. •Women who are thinking about treatment for osteoporosis. •Women who have been on hormone therapy for a long time. •Men or women with certain medical conditions or who are taking certain medications (such as glucocorticoids or prednisone) for a long period. Common Testing Sites Any bone can fracture, but with osteoporosis some bones fracture more easily. These include bones in the spine, wrist, shoulder, and hip. That’s why bone density testing may be done at one or more of these sites. Understanding Your Results The results of your test may seem confusing at first. Don’t be afraid to ask your provider to explain. Your bone mineral density (BMD) describes the thickness of the bone that was scanned. Your healthcare provider will compare your BMD with the BMD of young, healthy bone. The result is called a T-score. Bones remodel at different rates. So, a healthy T-score in the wrist doesn’t mean the spine is also healthy. That’s why more than one site may be scanned. © 2025-2710 [employer], [address] [place] [address]. All rights reserved. This information is not intended as a substitute for professional medical care. Always follow your healthcare professional's instructions documented in this encounter Progress Notes * Beth Mcginnis, DO - 01/27/2025 11:42 AM EST Subjective: Shane Lynch is a 79 year old male. Chief Complaint Patient presents with Hospital Follow-Up Pt is here and daughter she states that pt is here for hospital discharge. HPI: 79 year old male here today for a hospital follow-up. He went in on 01/19 he as at home in his recliner, and his had her back to him on the computer.He was going to get up as she heard his cane, and then next thing you know if was on the floor, face down. He had his eyes open but was not really responding to anyone. She called her daughter who lives next door and she came over. No shaking or seizures witnessed. He was not really talking, just st aring off into space. The EMS was called, it took them 30 minutes to get there and he was talking more when they got there. In the ER his EKG was unremarkable. His trop negative. CT head okay no new stroke. He did have low potassium, and this was replaced. His Echo showed same with EF at 20 %. His Bp remained low. He had seen EP about 2 months back and his lisinopril was stopped due to Low bp. And they had suggested if no better to consider Midodrine. I did speak with his cardiology Dr Cortez and will start Midodrine 2.5 mg tid. Called and let his know. His daughter will be moving into their house. He has falls often. Leg lesion on the R , recently opened up. He did have infection and open sore on the L. This has healed. Not taking water pills in 4 days. Unable to swallow the potassium pills. He went back to the ER after being dced bc of vomiting. He did have mild LFT elevation in the 60's.He has not been eating, and vomited last yesterday. 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 Obtaining from novonordisk PAP. Metoprolol Succinate ER 25 MG Oral Tablet Extended Release 24 Hour (toPROL XL) Take 1 Tablet by mouth in the morning. 90 Tablet 5 Nitroglycerin 0.4 MG Sublingual Tablet Sublingual (Nitrostat) Place 1 Tablet under the tongue every5 minutes as needed for Pain, Chest. Max dose 3 tablets in 15 minutes 25 Tablet 5 Warfarin Sodium 10 MG Oral Tablet (Coumadin) [...] 1 TABLET EVERY DAY 90 Tablet 3 metFORMIN HCl 1000 MG Oral Tablet (Glucophage) Take 1 Tablet by mouth in the morning and 1 Tablet before bedtime. 180 Tablet 1 Finasteride 5 MG Oral Tablet (Proscar) TAKE 1 TABLET EVERY DAY 90 Tablet 1 No current facility-administered medications for this visit. Review of patient's allergies indicates: No Known Allergies Objective: BP 91/58 | Pulse 82 | Temp 96.8 °F (36 °C) (Tympanic) | Resp 16 | Ht 5' 9" (1.753 m) | Wt 186 lb 4.8 oz (84.5 kg) | SpO2 98% | BMI 27.51 kg/m² | BSA 2.03 m² Physical Exam: General: alert,appears thin, and slightly jaundice. Heart: regular rate & rhythm, no murmur, and no gallops Lungs: chest symmetric with normal AP diameter, no chest deformities noted, no chest wall tenderness, lungs clear to auscultation Abdomen: abdomen soft, non-tender, normal bowel sounds, and no masses or organomegaly Extremities: pitting edema to the knees bilaterally. Open sore on the L howe. No obvious infection.They had brought in Aquacel from home, I used this and dressed the area. ASSESSMENT/PLAN: Type 2 diabetes mellitus with diabetic nephropathy, with long-term current use of insulin (HCC) (Primary) - HEMOGLOBIN A1C; Future; Expected date: 01/27/2025 - HEPATIC FUNCTION PANEL; Future; Expected date: 01/27/2025 - LIPASE; Future; Expected date: 01/27/2025 - BASIC METABOLIC PANEL; Future; Expected date: 01/27/2025 Orthostatic hypotension - Midodrine HCl 2.5 MG Oral Tablet (Proamatine); Take 1 Tablet by mouth in the morning and 1 Tabletat noon and 1 Tablet in the evening. Ischemic cardiomyopathy VT (ventricular tachycardia) (HCC) Nausea and vomiting, unspecified vomiting type Jaundice I suggested to hold ozempic for this week. Will get labs, and pending on Potassium will let them know and I can call in packet as he cannot swallow the potassium pills. To use the aquacel on his leg wound every 2 days change dressing. Start midodrine for low BP. Once he gets started on the midodrine will have him resume the lasix. Follow Up: Return for Labs Today. | For: Labs Today | Check-out note: March 12 min ok wound check on I spent a total of 40-54 minutes (exact time 50 mins) on the date of service in preparation, delivery, and documentation of the care provided to Shane Lynch excluding any time spent in the performance of separately billed services or time spent by another provider/QHP. Beth Mcginnis DO * Penny Katz LPN - 01/27/2025 11:33 AM EST Dexa scan ordered today. Provider aware. Penny Katz LPN Hemoglobin a1c ordered today. Provider aware. Penny Katz LPN documented in this encounter Nursing Notes * Penny Katz LPN - 01/27/2025 11:32 AM EST Shane Lynch is a 79 year old male who presents today for Chief Complaint Patient presents with Hospital Follow-Up Pt states that he is here for hospital discharge. documented in this encounter Plan of Treatment Upcoming Encounters Date Type Department Care Team (Late st Contact Info) Description 02/03/2025 10:30 AM EDT Telemedicine [place], [place] [phone] [facility] [address] [facility], [place] [address] 02/28/2025 10:30 AM EDT Anticoagulation Pharmacy, [place] [phone] [facility] [address] [facility], [place] [address] 02/28/2025 10:40 AM EDT Office Visit Pharmacy, [place] [phone] [facility] [address] [facility], [place] [address] 03/02/2025 11:10 AM EDT Office Visit Family Practice, [place] [phone] Beth Mcginnis DO [address] [place] [address] 03/31/2025 11:50 AM EDT Office Visit Family Practice, [place] [phone] Beth Mcginnis, DO [address] [facility] [place] [address] 05/24/2025 10:00 AM EDT Office Visit Cardiology, [facility] [address] [place] [address] Lea Steele CRNP [address] [place], [place] [address] [address] 11/06/2025 10:30 AM EST Office Visit Cardiology, [facility] [address] [place] [address] Bang Mcginnis, DO [address] [place] [address] Pending Results Name Type Priority Associated Diagnoses Date /Time HEMOGLOBIN A1C Lab Routine Type 2 diabetes mellitus with diabetic nephropathy, with long-term current use of insulin ([facility]) 01/27/2025 12:51 PM EST HEPATIC FUNCTION PANEL Lab Routine Type 2 diabetes mellitus with diabetic nephropathy, with long-term current use of insulin ([facility]) 01/27/2025 12:51 PM EST LIPASE Lab Routine Type 2 diabetes mellitus with diabetic nephropathy, with long-term current use of insulin ([facility]) 01/27/2025 12:51 PM EST BASIC METABOLIC PANEL Lab Routine Type 2 diabetes mellitus with diabetic nephropathy, with long-term current use of insulin ([facility]) 01/27/2025 12:51 PM EST Scheduled Orders Name Type Priority Associated Diagnoses Orde r Schedule HEMOGLOBIN A1C Lab Routine Type 2 diabetes mellitus with diabetic nephropathy, with long-term current use of insulin ([facility]) Expected: 01/27/2025 (Approximate), Expires: 02/27/2026 HEPATIC FUNCTION PANEL Lab Routine Type 2 diabetes mellitus with diabetic nephropathy, with long-term current use of insulin (HCC) Expected: 01/27/2025 (Approximate), Expires: 01/27/2026 LIPASE Lab Routine Type 2 diabetes mellitus with diabetic nephropathy, with long-term current use of insulin (HCC) Expected: 01/27/2025 (Approximate), Expires: 01/27/2026 BASIC METABOLIC PANEL Lab Routine Type 2 diabetes mellitus with diabetic nephropathy, with long-term current use of insulin (HCC) Expected: 01/27/2025 (Approximate), Expires: 01/27/2026 Health Maintenance Due Date Last Done Comments DXA Scan 1945 Adult Wellness Visit 01/01/2019 01/01/2018 Diabetic Eye Exam 06/10/2024 06/10/2023, , 06/09/2023, Additional history exists COVID-19 Vaccine ( season) 2024 11/19/2021, 03/02/2021, 02/08/2021 HbA1c 02/06/2025 08/09/2024, 04, 11/12/2023, Additional history exists Depression Monitoring 03/30/2025 03/30/2024 GFR 09/02/2025 09/02/2024, 04, 11/12/2023, Additional history exists Albumin/Creatinine Ratio 12/06/2025 [...] long-term current use of insulin (HCC)- Primary Orthostatic hypotension Ischemic cardiomyopathy Other specified forms of chronic ischemic heart disease VT (ventricular tachycardia) (HCC) Paroxysmal ventricular tachycardia Nausea and vomiting, unspecified vomiting type Jaundice Jaundice, unspecified, not of documented in this encounter Advance Directives * [...] Power of Attor ale? No Care Teams Animal Assisted Therapist Relationship Specialty Start Date End Date Beth Mcginnis DO PCP - General 08/28/10 documented as of this encounter
--- OUTSIDE RECORDS SUMMARY | 2025-02-23 11:35 | External Medical Summary ---
Author Name Unknown Address Unknown Organization [id number][place] [place] [address] [place] [address] Laboratory Report Ordering Provider Test Date Status ANG ALLEN 01/27/2025 12:51:05 Final Observation Date Value Abnormality Reference (Units ) Status BUN 01/27/2025 12:51:05 19 6-20 (mg/dL) Final Creatinine 01/27/2025 12:51:05 1.1 0.6-1.2 (mg/dL) Final Glomerular filtration rate/1.73 sq M.predicted [Volume Rate/Area] in Serum, Plasma or Blood by Creatinine-based formula (CKD-EPI) 01/27/2025 12:51:05 72 >=60 (mL/min) Final eGFR is calculated based on the CKD-EPI 2020 equation. Sodium 01/27/2025 12:51:05 142 135-146 (m mol/L) Final Potassium 01/27/2025 12:51:05 3.9 3.5-5.1 (m mol/L) Final Cl 01/27/2025 12:51:05 110 Above high normal 98 -107 (mmol/L) Final CO2 01/27/2025 12:51:05 19 Below low normal 22- 32 (mmol/L) Final Anion gap 01/27/2025 12:51:05 13 7-15 (mmol /L) Final Glucose 01/27/2025 12:51:05 111 70-120 (mg /dL) Final Calcium 01/27/2025 12:51:05 8.5 8.4-10.2 ( mg/dL) Final Performing Location [facility] [place] [address] [place] [address]
--- OUTSIDE RECORDS SUMMARY | 2025-02-23 11:35 | External Medical Summary | Summary of Care ---
Author Name Unknown Organization [facility] Address [address] [facility] [address] Phone [phone] Care Team Providers Care Bulk Clerk Name Role Phone Beth Mcginnis Primary Care Provider Reason for Visit * Reason Comments Dosage Adjustment In Person (Anticoag Cl inic) Encounter Details Date Type Department Care Team (Latest Contact Info) Description 01/27/2025 11:20 AM EST Anticoagulation Pharmacy, [facility] [address] [place] [phone] [facility] [address] [place] [address] Anticoagulation management encounter*; Atypical atrial flutter (HCC); [...] the evening. Take with meals. Obtaining from [employer] PAP. Active Metoprolol Succinate ER 25 MG [...] Warfarin Sodium 10 MG Oral Tablet (Coumadin)Indicati ons:intermediate current use of anticoagulant therapy,Sustained VT (ventricular [...] DAY 90 Tablet 1 01/02/20 25 Active Lisinopril 2.5 MG Oral Tablet [...] mRNA, LNP-s, No Pre serve, 2-Dose Series (CoSchedule) 11/19/2021,03/02/2021,02/08/2021 Pneumococcal Conjugate Vacc, 13 Valent (Prevnar) [...] this encounter Progress Notes * Faye Anderson, [facility] - 01/27/2025 11:25 AM EST Medication Therapy Disease Management - Anticoagulation Patient: Shane Lynch | : 1945 Subjective Contacts Contact Date/Time Type Contact Phone/Fax 01/27/2025 09:21 AM EST Email SMS () [phone] Patient not accepting updates Patient-Reported Symptoms: Patient Findings Positives: Change in medications (on augmentin and doxycycline), Hospital admission ([facility] 01/19-01/21 for stroke like symptoms and mechanical fall) Negatives: Signs/symptoms of thrombosis, Signs/symptoms of bleeding, Change in health, Change in alcohol use, Change in activity, Upcoming invasive procedure, Missed doses, Extra doses, Change in diet/appetite, Bruising Objective Current Warfarin Dose As of 01/27/2025 Warfarin maintenance plan: 10 mg (10 mg x 1) every Mon; 5 mg (10 mg x 0.5) all other days INR Result As of 01/27/2025 INR goal: 2.0-3.0 INR used for dosin.0 (01/27/2025) Assessment & Plan Warfarin Plan As of 01/27/2025 Full warfarin instructions: 10 mg every Mon; 5 mg all other days No change documented: Faye Anderson RPh Next INR check: 02/24/2025 Repeat PT/INR in 4 week(s) Weekly dose: [...] time spent by another provider/QHP. Faye Anderson RPh Clinical Pharmacist 01/27/2025, 11:25 AM documented in this encounter Plan of Treatment Upcoming Encounters Date Type Department Care Team (Late st Contact Info) Description 02/03/2025 10:30 AM EDT Telemedicine Pharmacy, Rhonda [facility] [place] [phone] [address] [place] [address] [place] [address] 02/28/2025 10:30 AM EDT Anticoagulation Pharmacy, Rhonda Fischer [address] [facility] [place] [phone] [facility] [place] [address] [facility] [address] 02/28/2025 10:40 AM EDT Office Visit Pharmacy, Rhonda [facility] [address] [facility] [place] [phone] [facility] [address] [facility] [address] 03/02/2025 11:10 AM EDT Office Visit [facility], Rhonda [address] [place] [phone] Beth Mcginnis, DO [address] [place] [address] 03/31/2025 11:50 AM EDT Office Visit [facility], Rhonda [address] [place] [phone] Beth Mcginnis, DO [address] [place] [address] 05/24/2025 10:00 AM EDT Office Visit Cardiology, [facility] [address] [facility] [place] [address] Lea Steele CRNP [address] [place], [place] [address] [address] 11/06/2025 10:30 AM EST Office Visit Cardiology, [facility] [address] [place] [address] Bang Mcginnis, DO [address] [facility] [place] [address] Health Maintenance Due Date Last Done Comments [...] Diagnosis Comments INR FINGERSTICK, POINT OF CARE IVAN 01/27/2025 11:27 AM EST documented in this encounter Results * INR FINGERSTICK, POINT OF CARE (01/27/2025 11:27 AM EST) Fingerstick INR 2.0 INR 11:54 AM EST [facility] Blood 01/27/2025 11:2 7 AM EST 01/27/2025 11:53 AM EST Narrative LABORATORY [facility] 56- - 01/27/2025 11:54 AM EST Therapeutic ranges for non-operative patients: Prophylaxsis/treatment of DVT: (Range:2.0-3.0) Treatment of pulmonary embolism:(Range:2.0-3.0) Prevention of systemic embolism from: -tissue heart valves -acute myocardial infarction -valvular heart disease -atrial fibrillation (Range: 2.0-3.0) Mechanical prosthetic valves: (Range: 2.5-3.5) [facility] [place] [facility] POINT OF CARE TEST DOCKED DEVICE UNSOLICITED RESULTS Final Result [facility]AT[facility] [address] documented in this encounter Visit Diagnoses Diagnosis [...] Power of Attor ale? No Care Teams Bulk Clerk Relationship Specialty Start Date End Date Beth Mcginnis DO PCP - General 08/28/10 documented as of this encounter"
--- OUTSIDE RECORDS SUMMARY | 2025-02-23 11:35 | External Medical Summary ---
Author Name Unknown Address Unknown Organization K01:[facility] [place] [address] [place] [address] Laboratory Report Ordering Provider Test Date Status ANG ALLEN 01/27/2025 12:51:05 Final Observation Date Value Abnormality Reference (Units ) Status Lipase 01/27/2025 12:51:05 45 13-60 (U/L ) Final Performing Location [facility] - [address] [place] [address]
--- OUTSIDE RECORDS SUMMARY | 2025-02-23 11:35 | External Medical Summary | Summary of Care ---
Author Name Unknown Organization [facility] Address [address] [address] Phone [phone] Care Team Providers Care [employer]erox Machine Assembler Name Role Phone Beth Mcginnis Primary Care Provider [phone] Reason for Visit * Reason Comments Outpatient Testing Encounter Details Date Type Department Care Team (Late st Contact Info) Description 01/27/2025 12:30 PM EST Laboratory Laboratory, [facility] [address] [facility] [place] [phone] [facility] [address] [place] [address] Type 2 diabetes mellitus with diabetic nephropathy, [...] sugars 3-4 times daily 2 Box 3 10/25/20 13 Active Multiple Vitamins-Minerals (PRESERVISION AREDS 2) [...] the evening. Take with meals. Obtaining from [employer] PAP. 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,Sustained [...] mRNA, LNP-s, No Pre serve, 2-Dose Series ([employer]) 11/19/2021,03/02/2021,02/08/2021 Pneumococcal Conjugate Vacc, 13 Valent (Prevnar) [...] 10:30 AM EDT Telemedicine Pharmacy, [address] [place] [phone] [facility] [address] [facility] [place] [address] 02/28/2025 10:30 AM EDT Anticoagulation Pharmacy, [address] [place] [phone] [facility] [address] [facility] [place] [address] 02/28/2025 10:40 AM EDT Office Visit Pharmacy, [address] [place], [place] [phone] Rhonda [facility] [address] [facility] [place] [address] 03/02/2025 11:10 AM EDT Office Visit Family [facility], [address] [place] [phone] Beth Mcginnis, DO [address] [address] 03/31/2025 11:50 AM EDT Office Visit [facility], [address] [place] [phone] Beth Mcginnis, DO [address] [place] [address] 05/24/2025 10:00 AM EDT Office Visit Cardiology, [facility] [address] [facility] [place] [address] Lea Steele CRNP [address] [place], [place] [address] [address] 11/06/2025 10:30 AM EST Office Visit Cardiology, [facility] [place] [address] Bang Mcginnis, DO 132 [facility] [place] [address] Pending Results Name Type Priority Associated Diagnoses Date /Time HEMOGLOBIN A1C Lab Routine Type 2 diabetes mellitus with diabetic nephropathy, with long-term current use of insulin (HCC) 01/27/2025 12:51 PM EST HEPATIC FUNCTION PANEL Lab Routine Type 2 diabetes mellitus with diabetic nephropathy, with long-term current use of insulin ([facility]) 01/27/2025 12:51 PM EST LIPASE Lab Routine Type 2 diabetes mellitus with diabetic nephropathy, with long-term current use of insulin ([facility]) 01/27/2025 12:51 PM EST BASIC METABOLIC PANEL Lab Routine Type 2 diabetes mellitus with diabetic nephropathy, with long-term current use of insulin ([facility]) 01/27/2025 12:51 PM EST Health Maintenance Due Date Last [...] Power of Attor ale? No Care Teams Xerox Machine Assembler Relationship Specialty Start Date End Date Beth Mcginnis DO PCP - General 08/28/10 documented as of this encounter
--- OUTSIDE RECORDS SUMMARY | 2025-02-23 11:35 | External Medical Summary ---
Author Name Unknown Address Unknown Organization K01:[facility] - [address] [place] [address] Laboratory Report Ordering Provider Test Date Status ALEJANDROABDIGERRY 01/27/2025 12:51:05 Final Observation Date Value Abnormality Reference (Units ) Status Albumin 01/27/2025 12:51:05 3.4 Below low normal 3.8-5.0 (g/dL) Final AST (Aspartate aminotransferase) 01/27/2025 12:51:05 285 Above high normal 10-50 (U/L) Final Alk Phos 01/27/2025 12:51:05 96 35-130 (U/L) Final ALT (Alanine aminotransferase) 01/27/2025 12:51:05 517 Above high normal 10-50 (U/L) Final Bilirubin, Total 01/27/2025 12:51:05 0.4 <=1.2 (mg/dL) Final Bilirubin, Direct 01/27/2025 12:51:05 0.3 0.0-0.3 (mg/dL) Final Protein 01/27/2025 12:51:05 5.9 Below low normal 6.0-8.3 (g/dL) Final Performing Location [facility] - [address] [place] [address]
--- OUTSIDE RECORDS SUMMARY | 2025-02-23 11:35 | External Medical Summary | Summary of Care ---
Author Name Unknown Organization [facility] Address [address] [address] Phone [phone] Care Team Providers Care Meeting Planner Name Role Phone LaliBeth gilbert Primary Care Provider Reason for Visit * Reason Onset Date Comments Appointment 01/30/2025 Encounter Details Date Type Department Care Team (Late st Contact Info) Description 01/30/2025 Telephone Cardiology, [place] [address] [place] [address] Iliana Cortez DO [address] [facility] [place] [address] Appointment Allergies No known active allergiesdocumented as of this encounter (statuses as of 01/31/2025) Medications OMEGA-3 FATTY ACIDS 1000 MG OR [...] the evening. Take with meals. Obtaining from [employer] PAP. Active Metoprolol Succinate ER 25 [...] Warfarin Sodium 10 MG Oral Tablet (Coumadin)Indicati ons:FPC current use of anticoagulant therapy,Sustained VT (ventricular [...] (Lasix)Indications :Heart failure, systolic, due to CAD ([facility]),Chronic heart failure with reduced ejection fraction and [...] as of this encounter (statuses as of 01/31/2025) Active Problems Problem Noted Date Diagnosed Date [...] as of this encounter (statuses as of 01/31/2025) Resolved Problems Problem Noted Date Diagnosed Date [...] as of this encounter (statuses as of 01/31/2025) Immunizations Name Administration Dates Next Due COVID-19 mRNA, LNP-s, No Pre serve, 2-Dose Series ([employer]) 11/19/2021,03/02/2021,02/08/2021 Pneumococcal Conjugate Vacc, 13 Valent (Prevnar) [...] Telephone Encounter - Zakiya Hector NRCMA - 01/30/2025 8:[address] Cortez, pt was started on midodrine 2.5mg and needs seen in late January early February in the ep clinic. Please schedule pt at in follow up slot with Lea. DAVID Hodge documented in this encounter Plan of Treatment Upcoming Encounters Date Type Department Care Team (Late st Contact Info) Description 02/03/2025 10:30 AM EDT Telemedicine Pharmacy, [address] [facility] [place] [phone] [facility] [address] [facility] [place] [address] 02/28/2025 10:30 AM EDT Anticoagulation Pharmacy, [place], [place] [phone] [facility] [address] [place] [facility] [place] [address] 02/28/2025 10:40 AM EDT Office Visit Pharmacy, [place], [place] [phone] [facility] [address] [facility], [place] [address] 02/28/2025 11:30 AM EDT Office Visit Cardiology, [facility] [place] [address] Lea Steele CRNP [address] [place], [place] [address] [address] 03/02/2025 11:10 AM EDT Office Visit Family Practice, [place], [place] [phone] Beth Mcginnis DO [address] [place], [place] [address] 03/31/2025 11:50 AM EDT Office Visit Family Practice, [place], [place] [phone] Beth Mcginnis DO [address] [place], [place] [address] 11/06/2025 10:30 AM EST Office Visit Cardiology, [facility] [address] [facility] [place] [address] Bang Mcginnis DO [address] [place] [address] Health Maintenance Due Date Last Done Comments [...] Power of Attor ale? No Care Teams Meeting Planner Relationship Specialty Start Date End Date Beth Mcginnis DO PCP - General 08/28/10 documented as of this encounter
--- OUTSIDE RECORDS SUMMARY | 2025-02-23 11:35 | External Medical Summary ---
Author Name Unknown Address Unknown Organization : Laboratory Report Ordering Provider Test Date Status PINKY LLAMAS 01/27/2025 11:27:48 Final Therapeutic ranges for non-o perative patients:
Prophylaxsis/treatment of DVT: (Range:2.0-3.0)
Treatment of pulmonary embolism:(Range:2.0-3.0)
Prevention of systemic embolism from:
-tissue heart valves
-acute myocardial infarction
-valvular heart disease
-atrial fibrillation
(Range: 2.0-3.0)
Mechanical prosthetic valves: (Range: 2.5-3.5) Observation Date Value Abnormality Reference (Units ) Status INR in Capillary blood by Coagulation assay 01/27/2025 11:27:48 2.0 (INR) Final Performing Location
[2025-02-23] MEDS ORDERED: CARBOHYDRATES FOR HYPOGLYCEMIA PO PRN (13:18)
[2025-02-23] MEDS ORDERED: DEXTROSE 50% 50 ML SYRINGE IV PRN (13:18)
[2025-02-23] MEDS ORDERED: PHARMACY GLYCEMIC MGMT CONSULT PRN (13:18)
[2025-02-23] MEDS ORDERED: GLUCOSE 10 TAB/TUBE PO PRN (13:18)
[2025-02-23] MEDS ORDERED: GLUCOSE 40% GEL 15 GM TUBE PO PRN (13:18)
[2025-02-23] MEDS ORDERED: GLUCAGON FOR INJ 1 MG VIAL SQ PRN (13:18)
[2025-02-23] MEDS: cefTRIAXone SODIUM 2,000 MG/50 ML BAG IV SCH (13:43)
[2025-02-23] MEDS: MIDODRINE HCL 2.5 MG TAB PO ONE (13:43)
[2025-02-23] MEDS ORDERED: POLYETHYLENE (MIRALAX) 17 GM PACK PO PRN (13:44)
[2025-02-23] MEDS ORDERED: ONDANSETRON INJ 2 MG/ML 2 ML VIAL IV PRN (13:44)
[2025-02-23] MEDS: AMIODARONE 200 MG TAB PO ONE (13:44)
--- NOTE | 2025-02-23 13:44 | Gastrointestinal Consultation ---
Date of Consultation February 23, 2025 Assessment & Plan (1) GI bleed: Plan Patient currently admitted with decompensated heart failure and ischemic cardiomyopathy. he had Hemoccult positive stool, but no reported melena or BRBPR. GI ros are unremarkable. - follow hgb/hct. transfuse as needed. - continue with protonix drip. - It does not sound like he is having active GI bleeding at this time. Would continue to monitor and recommend supportive care. - would await cardiology work up prior to considering any endoscopic evaluation. Supervising Physician Co-Signing Physician Notes I personally saw and examined the patient. I have reviewed the chart and agree with the documentation provided by the SPRAY PILOT including discussion about the assessment, treatment and plan. Briefly, 79 year old male with a past medical history of ischemic cardiomyopathy with EF 20%, atypical atrial flutter status post DCCV status post ablation in March 2021 on amiodarone and coumadin, VT/VF s/p ICD, CAD s/p CABG in 1997, history of LV apical thrombus on Coumadin since , sinus bradycardia, DM II, HTN, BPH, mood disorder and other medical problems listed below who presented to the ED today with left sided chest pain that woke him up in the middle of the night. He is currently being admitted with decompensated heart failure and ischemic cardiomyopathy. During work up he was found to have a drop in hgb from 13.3 last month to 9.2 today. INR 1.6. He had rectal exam done which was reportedly heme positive, but he denies any brbpr or melena. No prior EGD and colonoscopy over 10 years ago was normal. At this point I would treat him supportively as his main complaint is substernal chest pain. He is got no bleeding. I would recheck his hemoglobin to see where it comes up to. Supportive care with PPI twice daily will await cardiology input. No acute role for endoluminal evaluation. History of Present Illness Reason for Consultation: Dayana BANGURA Requesting Physician: GIB on warfarin Attending Physician: Lissett Garcia MD History of Present Illness Patient is a 79 year old male with a past medical history of ischemic cardiomyopathy with EF 20%, atypical atrial flutter status post DCCV status post ablation in March 2021 on amiodarone and coumadin, VT/VF s/p ICD, CAD s/p CABG in 1997, history of LV apical thrombus on Coumadin since , sinus bradycardia, DM II, HTN, BPH, mood disorder and other medical problems listed below who presented to the ED today with left sided chest pain that woke him up in the middle of the night. He is currently being admitted with decompensated heart failure and ischemic cardiomyopathy. During work up he was found to have a drop in hgb from 13.3 last month to 9.2 today. INR 1.6. He had rectal exam done which was reportedly heme positive, but he denies any brbpr or melena. He tells me bowels tend to range from a few time a day to skipping a few days inbetween. He denies nausea, vomiting, acid reflux, dysphagia, stomach pain. He is currently still having active Left sided chest pain which is his main concern. He reports he had a colonoscopy done 10-15 years ago in [place] that was unremarkable. he never had an EGD. Allergies Allergy/AdvReac Type Severity Reaction Status Date / Time No Known Allergies Allergy Unverified 02/23/25 09:30 Home Medications Medication Instructions Recorded Confirmed Type aspirin 81 mg tablet,delayed 81 mg PO QAM 08/10/23 02/23/25 History release atorvastatin 80 mg tablet 80 mg PO HS 08/10/23 02/23/25 History digoxin 125 mcg (0.125 mg) tablet 125 mcg PO 3XWK 08/10/23 02/23/25 History finasteride 5 mg tablet 5 mg PO HS 08/10/23 02/23/25 History furosemide 40 mg tablet 40 mg PO BID 08/10/23 02/23/25 History insulin degludec 100 unit/mL (3 7 unit subcut QAM 08/10/23 02/23/25 History mL) subcutaneous pen (Tresiba FlexTouch U-100 insulin) metformin 1,000 mg tablet 1,000 mg PO BID 08/10/23 02/23/25 History semaglutide 1 mg/dose (4 mg/3 mL) 4 mg subcut Q7D 08/10/23 02/23/25 History subcutaneous pen injector (Ozempic) sertraline 50 mg tablet 75 mg PO DAILY 08/10/23 02/23/25 History vit C 250 mg-vit E 90 mg-zinc 40 1 tab PO BID ##0 08/10/23 02/23/25 History mg-copper 1 [id number] capsule (PreserVision AREDS-2) warfarin 10 mg tablet See Rx Instructions .Route .COMPLEX 08/10/23 02/23/25 History amiodarone 200 mg tablet 200 mg PO BID #60 tabs 08/12/23 02/23/25 Rx dapagliflozin propanediol 10 mg 0 mg PO DAILY 02/23/25 02/23/25 History tablet (Farxiga) metoprolol succinate 25 mg 25 mg PO DAILY 02/23/25 02/23/25 History tablet,extended release 24 hr midodrine 2.5 mg tablet 2.5 mg PO TID 02/23/25 02/23/25 History potassium chloride 20 mEq 20 meq PO DAILY 02/23/25 02/23/25 History tablet,extended release(part/cryst) Patient History Medical History History of kidney stones Hypokalemia History of cardioversion 2020, [facility] Hx of angiography 12/2023, [facility] LBBB (left bundle branch block) Follows with dr. bush, [facility] Apical mural thrombus History of- on chronic Coumadin Depression Anxiety CAD (coronary artery disease) S/p 3 vessel bypass 1997 On anticoagulant therapy warfarin daily Myocardial Infarction x3--last 1997--follows with Dr. Bang Bush Hyperlipidemia Surgical History History of lithotripsy multiple--last 10/2020 @ [facility] History of kidney surgery ureter englarged History of amputation of great toe bilateral History of surgery left leg vein removed for bypass History of carpal tunnel surgery of right wrist History of colonoscopy History of appendectomy History of tonsillectomy and adenoidectomy History of bilateral cataract extraction History of cardiac cath x1--1997 @ [facility] [place]no stents, had CABG History of implantable cardioverter-defibrillator (ICD) placement inserted 01/2007, replaced 02/2016, upgraded to BiV ICD on --[employer] S/P triple vessel bypass @ [facility] [place] 1997 Family History Other No family history of adverse response to anesthesia Social History Smoking Status: Former smoker Tobacco Type: Cigarettes Second Hand Exposure: Yes ( smokes); Do You Dip or Chew Tobacco: Yes (1 can/4-5 days; advised); Hx Alcohol Use: Yes Alcohol type: beer Alcohol Intake Frequency: Monthly or Less Hx Substance Use: No Preferred Language: Bulgarian Communication Ability: Effective Visual Impairment: Limited Hearing Ability: Hard of Hearing Post Anesthesia Nurse Required: No Beliefs That Will Affect Care: None marital status: Current Living Situation: Spouse Feels Safe at Home: Yes Diet: regular Assistive Devices: Cane and Walker Review of Systems Review of Systems: All systems reviewed & are unremarkable except as noted in HPI & below Physical Exam Constitutional: WD/WN, vitals as above Respiratory: normal respiratory effort, lungs clear to auscultation Cardiovascular: Rate/Rhythm: regular rate and regular rhythm Gastrointestinal (Abdomen): normal bowel sounds, soft, nontender, no hepatosplenomegaly Psychiatric: Orientation: alert and oriented x 3 Affect: euthymic affect Results & Data Vital Signs (Past 12 Hours) Vital Signs Temp Pulse Pulse Resp BP BP Pulse Ox 02/23/25 12:07 70 02/23/25 10:59 69 19 128/59 L 93 02/23/25 10:12 71 19 112/63 94 02/23/25 09:05 70 19 106/64 96 02/23/25 08:09 70 02/23/25 07:56 70 19 124/71 02/23/25 07:54 71 17 98 02/23/25 07:40 97.7 F 69 18 124/71 98 O2 Del Method 02/23/25 12:07 02/23/25 10:59 Room Air 02/23/25 10:12 Room Air 02/23/25 09:05 Room Air 02/23/25 08:09 02/23/25 07:56 02/23/25 07:54 Room Air 02/23/25 07:40 Room Air Coding Level of Care Code 19826 INT INP/OBS CARE 2/55MIN Diagnoses GI bleed K92.2
--- NOTE | 2025-02-23 14:09 | Cardiology Consultation ---
Date of Consultation February 23, 2025 Assessment & Plan (1) Pleuritic chest pain: (2) Acute on chronic heart failure with reduced ejection fraction (HFrEF, <= 40%) and combined systolic and diastolic dysfunction: (3) Cellulitis, leg: (4) Anemia: Plan Complex 79 year old male with history of severe LV dysfunction, PAF, VT and biv AICD in place. Patient admitted for left sided pleuritic chest pain, worse with deep inspiration. HS troponin negative x3 EKG with paced rhythm, no acute ischemic changes. Echo with stable, severely reduced LVEF. No pericardial effusion. Chest CT with calcified pericardium and possible left upper lobe opacity. Consider treatment for possible pericarditis with low dose colchicine morphine for pain Symptoms may also be related to pleurisy secondary to underlying pneumonia noted on chest CT with left lung opacity vs CHF Continue antibiotics as initiated on admission per hospitalist. Evidence of volume overload on exam, consistent with acute on chronic HFrEF Continue IV Lasix. received one dose Furosemide 40 mg IV on admission. Repeat dose this afternoon, and continue furosemide 40 mg IV BID Elevated creatinine on admission, hopeful this will improve with diuresis. Monitor I+O's Monitor renal function Daily weight with standing scale. probable LE cellulitis noted -continue antibiotics GDMT for HFrEF has been limited by hypotension. Continue midodrine. Concerns for acute GI bleed with Hbg of 9.2 (Was 13.3 on 01/21) No evidence of melena or hematochezia per patient. Holding coumadin for now. INR 1.6. No need to reverse. History of VT/PAF - no arrhythmias on device interrogation -continue amiodarone and metoprolol Further recommendations pending evaluation/discussion with Dr. Bush and response to medications Case discussed with Dr. Bush. I spent a total of 60 minutes on the date of service in preparation, delivery, and documentation of the care provided to this patient, excluding any time spent in the performance of separately billed services. Grace Jones PA-C Department of Cardiology, [facility] This chart was completed in part utilizing Speech Voice Recognition Software. Grammatical errors, random word insertions, pronoun errors, and incomplete sentences are an occasional consequence of this system due to software limitations, ambient noise, and hardware issues. Any formal questions or concerns about the content, text, or information contained within the body of this dictation should be directly addressed to the provider for clarification. Supervising Physician Co-Signing Physician Notes I have personally performed a history and physical examination on the patient. I have reviewed the advance practitioner's documentation, and I agree with, and take responsibility for the plan of care. Complex 79-year-old patient admitted with left-sided pleuritic chest pain, acute on chronic heart failure with reduced ejection fraction, acute kidney injury, and acute anemia of unclear etiology. Chest discomfort not consistent with acute coronary syndrome. High-sensitivity troponins within normal limits. Echocardiogram demonstrates stable, severe left ventricular systolic dysfunction. ECG is nondiagnostic due to underlying V-pacing. There is no significant pericardial effusion. Pleuritic discomfort possibly secondary to pleurisy, underlying infectious pulmonary process not excluded. He is not a candidate for NSAIDs due to chronic anticoagulation and heart failure. Recommend Solu-Medrol 60 mg IV x 1 now. Cautiously add low-dose colchicine 0.6 mg daily. He may also utilize morphine as needed for pain management. Warfarin will be placed on hold due to anemia. Monitor serial H&H. Continue IV diuresis today. Hold AM lasix pending review of lab studies. Monitor fluid balance, GFR, daily weight, and electrolytes. I spent a total of 40 minutes on the date of service in preparation, delivery, and documentation of the care provided to this patient, excluding any time spent in the performance of separately billed services. Bang Bush DO, [facility] History of Present Illness Reason for Consultation: Pleuritic chest pain; SOB; CHF Requesting Physician: Tashi Melton Attending Physician: Dr. Bush History of Present Illness Patient is a complex 79 year old male admitted to [facility] earlier today with sharp/stabbing left sided chest pain, radiating from his back, worse with deep inspiration and coughing. Symptoms started around 3:00 AM and started in his back. He notes ongoing SOB, worse with exertion. worsening LE edema also reported with open ulcerations. This has been a "chronic" issues per patient and his , but recently edema has worsened. Upon arrival to ER, HS troponin negative x3. EKG demonstrating dual paced rhythm. No acute ischemic changes. CP treated with nitro without improvement. Symptoms mildly improved with morphine. Concerns for LE cellulitis. Possible pneumonia on chest xray? Started on antibiotics and IV lasix for CHF. At time of consult, patient reports ongoing sharp/stabbing chest pain. Worse with inspiration. Improved with leaning forward for examination. He was found to be more anemia than baseline. No acute signs of acute GI bleed. Creatinine also elevated. History includes: Atrial flutter (atypical) s/p DCCV but did not hold; on Coumadin and amiodarone [id number] 5 (age, CHF, CAD, DM, HTN); s/p AVN ablation 03/25/2021 ICM s/p ICD 01/2007 gent change 02/27/2016 (Malcolm ICD lead) s/p upgrade to BiV ICD 09/19/2020 LBBB Chronic heart failure with reduced EF and diastolic dysfunction, NYHA Class II Sinus bradycardia DM VT/VF s/p ICD shock in 01/2013; most recently 10/2024 one responded to ATP other did not and resolved on its own CAD s/p CABGx3 in 1997 History of LV apical thrombus has been on coumadin since HTN HLD Allergies Allergy/AdvReac Type Severity Reaction Status Date / Time No Known Allergies Allergy Unverified 02/23/25 09:30 Home Medications Medication Instructions Recorded Confirmed Type aspirin 81 mg tablet,delayed 81 mg PO QAM 08/10/23 02/23/25 History release atorvastatin 80 mg tablet 80 mg PO HS 08/10/23 02/23/25 History digoxin 125 mcg (0.125 mg) tablet 125 mcg PO 3XWK 08/10/23 02/23/25 History finasteride 5 mg tablet 5 mg PO HS 08/10/23 02/23/25 History furosemide 40 mg tablet 40 mg PO BID 08/10/23 02/23/25 History insulin degludec 100 unit/mL (3 7 unit subcut QAM 08/10/23 02/23/25 History mL) subcutaneous pen (Tresiba FlexTouch U-100 insulin) metformin 1,000 mg tablet 1,000 mg PO BID 08/10/23 02/23/25 History semaglutide 1 mg/dose (4 mg/3 mL) 4 mg subcut Q7D 08/10/23 02/23/25 History subcutaneous pen injector (Ozempic) sertraline 50 mg tablet 75 mg PO DAILY 08/10/23 02/23/25 History vit C 250 mg-vit E 90 mg-zinc 40 1 tab PO BID ##0 08/10/23 02/23/25 History mg-copper 1 [id number] capsule (PreserVision AREDS-2) warfarin 10 mg tablet See Rx Instructions .Route .COMPLEX 08/10/23 02/23/25 History amiodarone 200 mg tablet 200 mg PO BID #60 tabs 08/12/23 02/23/25 Rx dapagliflozin propanediol 10 mg 0 mg PO DAILY 02/23/25 02/23/25 History tablet (Farxiga) metoprolol succinate 25 mg 25 mg PO DAILY 02/23/25 02/23/25 History tablet,extended release 24 hr midodrine 2.5 mg tablet 2.5 mg PO TID 02/23/25 02/23/25 History potassium chloride 20 mEq 20 meq PO DAILY 02/23/25 02/23/25 History tablet,extended release(part/cryst) Patient History Medical History History of kidney stones Hypokalemia History of cardioversion 2020, [facility] Hx of angiography 12/2023, [facility] LBBB (left bundle branch block) Follows with dr. bush, [facility] Apical mural thrombus History of- on chronic Coumadin Depression Anxiety CAD (coronary artery disease) S/p 3 vessel bypass 1997 On anticoagulant therapy warfarin daily Myocardial Infarction x3--last 1997--follows with Dr. Bang Bush Hyperlipidemia Surgical History History of lithotripsy multiple--last 10/2020 @ [facility] History of kidney surgery ureter englarged History of amputation of great toe bilateral History of surgery left leg vein removed for bypass History of carpal tunnel surgery of right wrist History of colonoscopy History of appendectomy History of tonsillectomy and adenoidectomy History of bilateral cataract extraction History of cardiac cath x1--1997 @ [facility]--no stents, had CABG History of implantable cardioverter-defibrillator (ICD) placement inserted 01/2007, replaced 02/2016, upgraded to BiV ICD on 09/19/20--[employer] S/P triple vessel bypass @ [facility] 1997 Family History Other No family history of adverse response to anesthesia Social History Smoking Status: Former smoker Tobacco Type: Cigarettes Second Hand Exposure: Yes ( smokes); Do You Dip or Chew Tobacco: Yes (1 can/4-5 days; advised); Hx Alcohol Use: Yes Alcohol type: beer Alcohol Intake Frequency: Monthly or Less Hx Substance Use: No Preferred Language: Georgian Communication Ability: Effective Visual Impairment: Limited Hearing Ability: Hard of Hearing Plier Worker Required: No Beliefs That Will Affect Care: None marital status: Current Living Situation: Spouse Feels Safe at Home: Yes Diet: regular Assistive Devices: Cane and Walker Review of Systems Review of Systems: All systems reviewed & are unremarkable except as noted in HPI & below Physical Exam Constitutional: WD/WN, vitals as above + acute distress (with left sided sharp chest pain) Neck: trachea midline, no thyromegaly normal visual inspection Respiratory: normal respiratory effort; no labored breathing Auscultation: + crackles Cardiovascular: Rate/Rhythm: regular rate and regular rhythm Heart Sounds: + murmur (I/ systolic murmur LSB) Vessels: + JVD Extremities: + edema (2+ edema b/l with erythema and open ulcerations b/l) Gastrointestinal (Abdomen): normal bowel sounds, soft, nontender, no hepatosplenomegaly Neurologic: PERRL, EOMI, accommodation nl, no face palsy, no dysarthria Results & Data Vital Signs (Past 12 Hours) Vital Signs Temp Pulse Pulse Resp BP BP Pulse Ox 02/23/25 13:55 95 02/23/25 13:35 36.5 C 74 18 124/67 93 02/23/25 12:07 70 02/23/25 10:59 69 19 128/59 L 93 02/23/25 10:12 71 19 112/63 94 02/23/25 09:05 70 19 106/64 96 02/23/25 08:09 70 02/23/25 07:56 70 19 124/71 02/23/25 07:54 71 17 98 02/23/25 07:40 36.5 C 69 18 124/71 98 O2 Del Method 02/23/25 13:55 Room Air 02/23/25 13:35 Room Air 02/23/25 12:07 02/23/25 10:59 Room Air 02/23/25 10:12 Room Air 02/23/25 09:05 Room Air 02/23/25 08:09 02/23/25 07:56 02/23/25 07:54 Room Air 02/23/25 07:40 Room Air Laboratory Results Cardiac Enzymes 02/23/25 02/23/25 02/23/25 Range/Units 07:43 09:35 12:04 AST 40 H (13-39) U/L Troponin I High Sens 10.6 12.0 12.8 (0-20) pg/ml Coagulation 02/23/25 Range/Units 07:43 PT 16.3 H (9.0-12.0) Seconds CBC 02/23/25 02/23/25 Range/Units 07:43 14:05 WBC 7.77 (4.8-10.8) K/ul RBC 3.37 L (4.70-6.10) M/uL Hgb 9.2 L 9.2 L (14.0-18.0) g/dl Hct 29.8 L 29.3 L (42.0-52.0) % Plt Count 263 (130-400) K/uL Neut # (Auto) 5.62 (1.40-6.50) K/uL Lymph # (Auto) 1.34 (1.20-3.40) K/uL Coleman # (Auto) 0.57 (0.11-0.59) K/uL Eos # (Auto) 0.18 (0.00-0.50) K/uL Baso # (Auto) 0.03 (0.00-0.20) K/uL Comprehensive Metabolic Panel 02/23/25 Range/Units 07:43 Sodium 141 (136-145) mmol/L Potassium 4.0 (3.5-5.1) mmol/L Chloride 106 (98-107) mmol/L Carbon Dioxide 27 (21-32) mmol/L BUN 27 H (6-23) mg/dl Creatinine 1.57 H (0.6-1.4) mg/dl Glucose 187 H (70-99(Fasting)) mg/dl Calcium 8.7 (8.6-10.3) mg/dl AST 40 H (13-39) U/L ALT 31 (7-52) U/L Alkaline Phosphatase 93 (34-104) U/L Total Protein 7.5 (6.0-8.3) gm/dl Albumin 3.8 (3.4-5.0) gm/dl Intake and Output 02/22/25 02/23/25 02/23/25 22:59 06:59 14:59 Intake Total 170 / 170 Output Total 600 / 600 Balance -430 / -430 Intake: IV 170 / 170 PANTOprazole 80 mg In Dextrose 120 / 120 5% 100 ml @ 480 mls/hr IV NOW ONE Rx#:[id number] cefTRIAXone SODIUM 2,000 mg In 50 / 50 50 ml @ 100 mls/hr IV Q24H [facility] Rx#:[id number] Output: Urine 600 / 600 Other: Weight 84 kg Weight Measurement Method Built in [facility] Patient Weight 02/24/25 06:59 Weight 84 kg Diagnostic Findings telemetry reviewed: dual chamber pacing - rates in the 70's EKG reviewed on admission: AV dual paced rhythm. no acute changes Echo report reviewed from today: LV is severely dilated LVEF 20-25% Mild to mod MR Mild TR Estimated systolic pulm pressure is 39 mmHG No pericardial effusion Pacemaker report reviewed: appropriate function and battery longevity 1 episode of non sustained VT since Dec 2024 Total COKE BURNER 99.8% Optivol fluid accumulation - ongoing since Dec 2024 Chest X-Ray 02/23/25 07:39 COMPARISON STUDY: 01/19/2025 FINDINGS: No significant interval changes have occurred in a patient who demonstrates gross cardiomegaly and chronic pulmonary vascular congestion. There is no Radhika B line or pleural effusion. There is no focal airspace opacity. There is no pneumothorax or atelectasis. Median sternotomy wire sutures are once again noted. There is a triple lead pacemaker/defibrillator in place. IMPRESSION: Stable exam as described. No acute process. Chest CTA 02/23/25 08:29 IMPRESSION: 1. No pulmonary emboli identified. 2. Cardiomegaly with prior median sternotomy and CABG. Pericardial calcifications likely represents sequela of chronic pericarditis. 3. Pulmonary arterial hypertension. 4. Mild interstitial pulmonary edema with trace pleural effusions. 5. 2.8 cm dependent groundglass density of the left upper lobe is likely atelectatic. Attention on follow-up recommended in order to exclude a groundglass nodule. 6. Prior granulomatous disease. ACT 112: Negative or not required by law. The above report was generated using voice recognition software. It may contain grammatical, syntax or spelling errors. Electronically signed by: Andry Nguyen M.D. 02/23/2025 9:02 AM Medications Administered Current Inpatient Medications Acetaminophen (Acetaminophen 325 Mg Tab) 650 mg PO Q4H PRN PRN Reason: Pain or Fever Stop: 03/25/25 13:43 Amiodarone HCl (Amiodarone 200 Mg Tab) 200 mg PO BID MAGDALENE Stop: 03/25/25 20:59 Atorvastatin Calcium (Atorvastatin 40 Mg Tab) 80 mg PO HS MAGDALENE Stop: 03/25/25 20:59 Dextrose (Dextrose 50% 50 Ml Syringe) 25 - 50 ml IV UD PRN; Protocol PRN Reason: Hypoglycemia Protocol Stop: 03/25/25 13:17 Digoxin (Digoxin 0.125 Mg Tab) 0.125 mg PO MoWeFr@0900 MAGDALENE Stop: 03/26/25 08:59 Finasteride (Finasteride 5 Mg Tab) 5 mg PO HS MAGDALENE Stop: 03/25/25 20:59 Glucagon (Glucagon For Inj 1 Mg Vial) 1 mg SQ UD PRN; Protocol PRN Reason: Hypoglycemia Protocol Stop: 03/25/25 13:17 Glucose (Glucose 40% Gel 15 Gm Tube) 15 - 30 gm PO UD PRN; Protocol PRN Reason: Hypoglycemia Protocol Stop: 03/25/25 13:17 Glucose (Glucose 10 Tab/Tube) 4 - 8 tab PO UD PRN; Protocol PRN Reason: Hypoglycemia Protocol Stop: 03/25/25 13:17 Pantoprazole Sodium 40 mg/ (Dextrose) 100 mls @ 20 mls/hr IV Q5H MAGDALENE Stop: 03/25/25 10:59 Last Admin: 02/23/25 10:55 Dose: 8 mg/hr, 20 mls/hr Ceftriaxone Sodium (Rocephin) 2,000 mg in 50 mls @ 100 mls/hr IV Q24H MAGDALENE Stop: 02/25/25 12:59 Last Infusion: 02/23/25 14:26 Dose: Infused Insulin Aspart (Insulin Aspart Per Unit Charge) 0 units SC Q6 MAGDALENE Stop: 03/25/25 13:29 Last Admin: 02/23/25 14:34 Dose: 1 units Insulin Glargine (Lantus Per Unit Charge) 0 units SC DAILY@1800 MAGDALENE; Protocol Stop: 02/23/25 18:01 Metoprolol Succinate (Metoprolol Succ 25mg Ext Rel Tab) 25 mg PO DAILY [facility] Stop: 03/26/25 08:59 Midodrine (Midodrine Hcl 2.5 Mg Tab) 2.5 mg PO TID [facility] Stop: 03/25/25 20:59 Miscellaneous (Carbohydrates For Hypoglycemia ) 15 - 30 gm PO UD PRN PRN Reason: Hypoglycemia Protocol Stop: 03/25/25 13:17 Miscellaneous Information (Pharmacy Glycemic Mgmt Consult) 1 each N/A UD PRN PRN Reason: Consult Stop: 03/25/25 13:17 Multivitamins/Minerals (Cerovite Adv Formula Tab) 1 tab PO BID [facility] Stop: 03/25/25 20:59 Ondansetron HCl (Ondansetron Inj 2 Mg/Ml 2 Ml Vial) 4 mg IV Q6H PRN PRN Reason: Nausea Stop: 03/25/25 13:43 Polyethylene Glycol (Polyethylene (Miralax) 17 Gm Pack) 17 gm PO DAILY PRN PRN Reason: Constipation Stop: 03/25/25 13:43 Potassium Chloride (Potassium Chloride Crtab 20 Meq Tabcr) 20 meq PO DAILY [facility] Stop: 03/26/25 08:59 Sertraline HCl (Sertraline Hcl 50 Mg Tablet) 75 mg PO DAILY [facility] Stop: 03/26/25 08:59 (3) Cellulitis, leg Laterality: unspecified laterality Qualified Code(s): L03.119 - Cellulitis of unspecified part of limb (4) Anemia Anemia type: unspecified type Qualified Code(s): D64.9 - Anemia, unspecified
[2025-02-23] MEDS: INSULIN ASPART PER UNIT CHARGE SC SCH ×2 (14:34→17:46)
--- NOTE | 2025-02-23 14:35 | Pharmacy Report ---
Pharmacy Glycemic Short Note 2 - Date of Service February 23, 2025 - Glycemic Short BSG Results (Last 24 hours): 02/23/25 02/23/25 07:43 13:49 Glucose 187 H POC Glucose 165 H OUTPATIENT ANTIDIABETIC REGIMEN: * Tresiba 7 units SC qAM * Ozempic 4 mg SC weekly (Fridays) * Metformin 1 g PO BIDM * Dapagliflozin (unclear if patient is currently taking and unable to verify w/ pharmacy records) HbA1c: 6.9% (01/20/25) ASSESSMENT: * is a 79 year old male who presents to ED today for left-sided chest pain, admitted w/ acute decompensated HFrEF and ischemic cardiomyopathy * Concern for GI bleed, pantoprazole gtt initiated (mixed in dextrose) * Will use weight-based stress of 2 for initial dosing of Novolog * Conservative basal scale for now while NPO * Ceftriaxone ordered empirically PLAN FOR INPATIENT GLYCEMIC CONTROL: * Hold outpatient oral diabetes medications * Basal insulin * Lantus 0-5-8 units SQ today@1800 (see EHR for details) * Bolus insulin * NovoLog per scale ACHS or Q6hrs while NPO * Goal Range: Low 120 mg/dL - High 150 mg/dL * Correction Factor: 30 mg/dL/unit * Nutritional / Prandial insulin per carb ratio of 1 unit per 10 grams CHO consumed
[2025-02-23 14:39] LABS: Hematocrit (blood only) 29.3 % (42.0-52.0); Hemoglobin 9.2 g/dl (14.0-18.0)
[2025-02-23] MEDS ORDERED: methylPREDNISolone 125 MG/2 ML VIAL IV STA (15:16)
[2025-02-23] MEDS: LANTUS PER UNIT CHARGE SC SCH (17:10)
[2025-02-23] MEDS: FUROSEMIDE 40 MG/4 ML VIAL IV ONE (17:47)
[2025-02-23] MEDS: MoRPHine SULFATE 2 MG/ML CARP IV PRN (17:47)
[2025-02-23] MEDS: methylPREDNISolone 60 MG in SYRINGE 0 ML IV STA (18:11)
[2025-02-23] MEDS: COLCHICINE 0.6 MG TAB PO ONE (18:23)
[2025-02-23] MEDS: FINASTERIDE 5 MG TAB PO SCH (19:58)
[2025-02-23] MEDS: AMIODARONE 200 MG TAB PO SCH (19:58)
[2025-02-23] MEDS: CEROVITE ADV FORMULA TAB PO SCH (19:58)
[2025-02-23] MEDS: ATORVASTATIN 40 MG TAB PO SCH (19:58)
[2025-02-23] MEDS: MIDODRINE HCL 2.5 MG TAB PO SCH (19:58)
[2025-02-23] MEDS: ACETAMINOPHEN 325 MG TAB PO PRN (20:02)
[2025-02-23 20:37] LABS: Hematocrit (blood only) 31.1 % (42.0-52.0); Hemoglobin 9.8 g/dl (14.0-18.0)
--- OUTSIDE RECORDS SUMMARY | 2025-02-23 22:24 | External Medical Summary | Summary of Care ---
Author Name Unknown Organization [facility] Address [address] [facility] [address] Phone [phone] Care Team Providers Care Rickshaw Driver Name Role Phone Beth Mcginnis DO Primary Care Provider Reason for Visit * Reason Onset Date Comments Advice 02/23/2025 Encounter Details Date Type Department Care Team (Late st Contact Info) Description 02/23/2025 Telephone [facility] [address] [place] [phone] Beth Mcginnis DO [address] [place] [id number] Advice Allergies No known active allergiesdocumented as of this encounter (statuses as of 02/23/2025) Medications OMEGA-3 FATTY ACIDS 1000 MG OR [...] the evening. Take with meals. Obtaining from [facility] [employer] PAP. Active Metoprolol Succinate ER 25 MG [...] as of this encounter (statuses as of 02/23/2025) Active Problems Problem Noted Date Diagnosed Date [...] implantable de fibrillator 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 or check 02/15/2007 longterm current use of anticoagulant therapy 0 08/12/2005 Ischemic cardiomyopathy documented as of this encounter (statuses as of 02/23/2025) Resolved Problems Problem Noted Date Diagnosed Date [...] edema, with mild nonproliferative retinopathy 10/15/2016 02/11/2018 Overview (02/22/2025): ICD-10 Update of Inactive Term Nonexudative macular degeneration 10/15/2016 02/16/2019 Sebaceous cyst [...] as of this encounter (statuses as of 02/23/2025) Immunizations Name Administration Dates Next Due COVID-19 mRNA, LNP-s, No Pre serve, 2-Dose Series ([email or web address] Application) 11/19/2021,03/02/2021,02/08/2021 Diptheria/Tetanus (Adult) 11/23/1995 Pneumococcal Conjugate Vacc, [...] No 03/30/2024 Does the household have a [facility] source of income? (Household - for ages [...] Notes * Telephone Encounter - Faye Anderson RPh - 02/23/2025 10:09 AM EDT 10 mg Mondays and 5 mg all other days. Faye Anderson, PharmD, BCACP Clinical Pharmacist Medication Therapy Disease Management 02/23/2025, 10:09 AM * Telephone Encounter - Christiano Shoemaker PHARM Tech - 02/23/2025 9:29 AM EDT Monse from [facility] calling on behalf of pt. Inquiring as to the dosage of pt's warfarin Rx. Relayed dosing on chart, then called [place] [facility] to verify. Transferred to [facility] for verification. Determined that therapy established on 01/27/2025 was to take 1 tab on Mondays only, and 1/2 tab for the rest of the week. Relayed the updated dosing to Monse. Verbalized understanding and agreed. Thank you, Christiano Shoemaker [employer] And Monitoring [facility] 02/23/2025,9:32 AM documented in this encounter Plan of Treatment Upcoming Encounters Date Type Department Care Team (Late st Contact Info) Description 02/28/2025 11:30 AM EDT Office Visit Cardiology, [facility] [address] [place] [phone] Lea Steele CRNP [address] [place] [address] [place] [address] 03/01/2025 1:00 PM EDT Anticoagulation Pharmacy, Rhonda Duran [facility] [place] [phone] [place] [address] [facility] [facility] [address] 03/01/2025 1:10 PM EDT Office Visit Pharmacy, Rhonda Duran [address] [place] [address] [place] [phone] [place] [address] [facility] [address] 03/02/2025 11:10 AM EDT Office Visit Family Practice, Rhonda Howard [facility] [place] [phone] Beth Mcginnis DO [address] [facility] [place] [address] 03/31/2025 11:50 AM EDT Office Visit Family Practice, Rhonda Howard [address] [place] [phone] Beth Mcginnis DO [address] [place] [address] 11/06/2025 10:30 AM EST Office Visit Cardiology, [facility] [address] [place] [phone] Bang Mcginnis, DO [address] [place] [address] Health Maintenance Due Date Last Done Comments DXA Scan 1945 Adult Wellness Visit 01/01/2019 01/01/2018 Diabetic Eye Exam 06/10/2024 06/10/2023, , 06/09/2023, Additional history exists COVID-19 Vaccine ( season) 2024 11/19/2021, 03/02/2021, 02/08/2021 Depression Monitoring 03/30/2025 03/30/2024 HbA1c 07/30/2025 01/27/2025, 07/24, 03/02/2024, Additional history exists Albumin/Creatinine Ratio 12/06/20252 025, 08/28/2023, 03/14/2022, Additional history exists B-12 [...] Power of Attor ale? No Care Teams Rickshaw Driver Relationship Specialty Start Date End Date Beth Mcginnis DO PCP - General 08/28/10 documented as of this encounter
--- OUTSIDE RECORDS SUMMARY | 2025-02-23 22:24 | External Medical Summary | Summary of Care ---
Author Name Unknown Organization [facility] Address [address] [address] Phone [phone] Care Team Providers Care Security Threat Analyst Name Role Phone Beth Mcginnis DO Primary Care Provider [phone] Reason for Visit * Reason Onset Date Comments Advice 02/23/2025 Encounter Details Date Type Department Care Team (Late st Contact Info) Description 02/23/[address] [facility] [address] [place] [phone] Beth Mcginnis DO [address] [place] [address] Advice Allergies No known active allergiesdocumented as [...] the evening. Take with meals. Obtaining from [employer] PAP. Active Metoprolol Succinate ER 25 MG [...] mRNA, LNP-s, No Pre serve, 2-Dose Series ([employer]) 11/19/2021,03/02/2021,02/08/2021 Diptheria/Tetanus (Adult) 11/23/1995 Pneumococcal Conjugate Vacc, [...] No 03/30/2024 Does the household have a [facility] hospit[facility] source of income? (Household - for [...] Rx. Relayed dosing on chart, then called [place] [facility] [place] to verify. Transferred to [facility] for verification. Determined that therapy established on 01/27/2025 was to take 1 tab on Mondays only, and 1/2 tab for the rest of the week. Relayed the updated dosing to Monse. Verbalized understanding and agreed. Thank you, Christiano Shoemaker [employer] [facility] 02/23/2025,9:32 AM documented in this encounter Plan of Treatment Upcoming Encounters Date Type Department Care Team (Late st Contact Info) Description 02/28/2025 11:30 AM EDT Office Visit Cardiology, [facility] [address] [place] [phone] Lea Steele CRNP [address] [place] [address] [place] [address] 03/01/2025 1:00 PM EDT Anticoagulation Pharmacy, Rhonda Duran [facility] [place] [phone] [place] [address] [address] [facility] [address] 03/01/2025 1:10 PM EDT Office Visit Pharmacy, Rhonda Duran [address] [place] [address] [place] [phone] [place] [address] [address] [facility] [address] 03/02/2025 11:10 AM EDT Office Visit Family Practice, Rhonda Howard [facility] [place] [phone] Beth Mcginnis DO [address] [facility] [place] [address] 03/31/2025 11:50 AM EDT Office Visit Family Practice, Rhonda Howard [address] [place] [phone] Beth Mcginnis DO [address] [place] [address] 11/06/2025 10:30 AM EST Office Visit Cardiology, [facility] [address] [place] [phone] Bang Mcginnis, DO [address] [place] [address] Health Maintenance Due Date Last Done Comments [...] Power of Attor ale? No Care Teams Security Threat Analyst Relationship Specialty Start Date End Date Beth Mcginnis DO PCP - General 08/28/10 documented as of this encounter
[2025-02-24 06:34] LABS: Hematocrit (blood only) 28.9 % (42.0-52.0); Hemoglobin 9.3 g/dl (14.0-18.0); Mean Corpuscular Hemoglobin 27.9 pg (25.0-34.0); Mean Corpuscular Hgb Conc 32.2 g/dL (32.0-36.0); Mean Corpuscular Volume 86.8 fL (80.0-100.0); Mean Platelet Volume 9.3 fL (9.4-12.4); Platelet Count 228 K/uL (130-400); RDW Coefficient of Variation 15.9 % (11.5-14.5); Red Blood Count 3.33 M/uL (4.70-6.10); White Blood Count 6.41 K/ul (4.8-10.8)
[2025-02-24 07:29] LABS: Albumin Level 3.6 gm/dl (3.4-5.0); Bilirubin,Total 0.5 mg/dl (0.2-1.0); Calcium 8.7 mg/dl (8.6-10.3); Potassium 4.4 mmol/L (3.5-5.1)
[2025-02-24 07:39] LABS: BUN Creatinine Ratio 19.4 (10-20); Creatinine Clr Calc Pharmacy 44.6 ml/min; Globulin 3.5 gm/dl (2.5-4.0); Phosphorus 3.8 mg/dl (2.5-4.9); Total Protein 7.1 gm/dl (6.0-8.3)
[2025-02-24] MEDS: POTASSIUM CHLORIDE CRTAB 20 MEQ TABCR PO SCH (09:16)
[2025-02-24] MEDS: DIGOXIN 0.125 MG TAB PO SCH (09:20)
[2025-02-24] MEDS: LANTUS PER UNIT CHARGE SC SCH ×2 (09:22→12:08)
[2025-02-24] MEDS: METOPROLOL SUCC 25MG EXT REL TAB PO SCH (09:23)
--- NOTE | 2025-02-24 10:26 | Nephrology Consultation ---
Date of Consultation February 24, 2025 Assessment & Plan (1) ROMAN (acute kidney injury): improving stage 2 ROMAN in the setting of cardiorenal syndrome, w/ labile baseline creatinine approximately 0.9-1.2 from 2022-spring 2024 in [facility] records. complicated by obligate IV contrast at admission. -continue lasix 40 mg IV bid today -if renal function steady 4/5 AM, could consider intensifying lasix at that time; holding off today b/c of risk of contrast induced nephropathy for at least another 24 hrs >cardiology dosing colchicine and would take care and if possible avoid this medication of standing dose planned -daily bmp -continue to hold metformin and dapagliflozin > look to resume DAPA when feasible/early -reasonable for now to continue midodrine -note currently on no standing K and none needed > monitor for need >>ordered admission UACM to eval for other processes -no fluid limit for now but once out of range of SAM concern, consider one -given addition of midodrine interval and fall w/in past 6 wks, ordered orthostatic VS for best awareness/understanding of pt needs; may need to do repeatedly Care coordinated w/ Dr Leahy via TText re colchicine, UA, orthostatics, current lasix dose > we are in agreement. (2) Acute decompensated heart failure: -diuretics as above -daily STANDING weight to continue -as above FR History of Present Illness Reason for Consultation: ROMAN Requesting Physician: Dr Garcia Attending Physician: Aleksandar Wasserman MD History of Present Illness 79-year-old male who I am asked to see for acute kidney injury was admitted yesterday for acute decompensated heart failure with reduced ejection fraction in the setting of ischemic cardiomyopathy after presenting with left-sided pleuritic chest pain, acute dyspnea, and progressive lower extremity edema with open sores. His medical history includes ischemic cardiomyopathy with an ejection fraction of 20%, atypical atrial flutter status post 2020 ablation, V. tach/V-fib status post defibrillator, coronary artery disease status post remote CABG, left atrial circular apical thrombus on Coumadin, type 2 diabetes, hypertension, mood disorder, prostatic hypertrophy, stone on imaging only. emphysema noted on CT scan at admission. s/p 12/2203 partial L 2nd toe amputation for osteomyelitis. Admitted here 01/19-01/21/25 with word finding difficulties and sudden BLE weakness with a near fall, had RLE cellulitis at the time. Since hospital d/c has been started on midodrine 2.5 mg tid. His presenting creatinine was 1.6, creatinine this morning 1.4. Baseline creatinine with some lability but approximately 0.9-1.2 from 2022 through the spring 2024. Concern also on admission for GI bleed on Eliquis since discharge hemoglobin last month ran greater than 111 and presented with hemoglobin of 9.2, stable this a.m. He was started on Lasix 40 IV twice daily with incomplete intake/output charting. Due to prior history of thrombus formation and presenting symptoms, patient underwent CT angiography > no emboli identified. some concerns also about gout flare w/ admission so received dose of methylprednisolone and 2 doses of 0.6 mg colchicine. pt states he feels better than yesterday; leg edema improved; breathing better. tolerating po, no n/v/d/c or increased abd girth; no uncontrolled pain, no palpitations or further chest pain, no new/worrisome voiding concerns, no recent f/c. no gout pain mentioned Allergies Allergy/AdvReac Type Severity Reaction Status Date / Time No Known Allergies Allergy Unverified 02/23/25 09:30 Home Medications Medication Instructions Recorded Confirmed Type aspirin 81 mg tablet,delayed 81 mg PO QAM 08/10/23 02/23/25 History release atorvastatin 80 mg tablet 80 mg PO HS 08/10/23 02/23/25 History digoxin 125 mcg (0.125 mg) tablet 125 mcg PO 3XWK 08/10/23 02/23/25 History finasteride 5 mg tablet 5 mg PO HS 08/10/23 02/23/25 History furosemide 40 mg tablet 40 mg PO BID 08/10/23 02/23/25 History insulin degludec 100 unit/mL (3 7 unit subcut QAM 08/10/23 02/23/25 History mL) subcutaneous pen (Tresiba FlexTouch U-100 insulin) metformin 1,000 mg tablet 1,000 mg PO BID 08/10/23 02/23/25 History semaglutide 1 mg/dose (4 mg/3 mL) 4 mg subcut Q7D 08/10/23 02/23/25 History subcutaneous pen injector (Ozempic) sertraline 50 mg tablet 75 mg PO DAILY 08/10/23 02/23/25 History vit C 250 mg-vit E 90 mg-zinc 40 1 tab PO BID ##0 08/10/23 02/23/25 History mg-copper 1 [id number] capsule (PreserVision AREDS-2) warfarin 10 mg tablet See Rx Instructions .Route .COMPLEX 08/10/23 02/23/25 History amiodarone 200 mg tablet 200 mg PO BID #60 tabs 08/12/23 02/23/25 Rx dapagliflozin propanediol 10 mg 0 mg PO DAILY 02/23/25 02/23/25 History tablet (Farxiga) metoprolol succinate 25 mg 25 mg PO DAILY 02/23/25 02/23/25 History tablet,extended release 24 hr midodrine 2.5 mg tablet 2.5 mg PO TID 02/23/25 02/23/25 History potassium chloride 20 mEq 20 meq PO DAILY 02/23/25 02/23/25 History tablet,extended release(part/cryst) Patient History Medical History History of kidney stones Hypokalemia History of cardioversion 2020, [facility] Hx of angiography 12/2023, [facility] LBBB (left bundle branch block) Follows with dr. bush [facility] Apical mural thrombus History of- on chronic Coumadin Depression Anxiety CAD (coronary artery disease) S/p 3 vessel bypass 1997 On anticoagulant therapy warfarin daily Myocardial Infarction x3--last 1997--follows with Dr. Bang Bush Hyperlipidemia Surgical History History of lithotripsy multiple--last 10/2020 @ [facility] History of kidney surgery ureter englarged History of amputation of great toe bilateral History of surgery left leg vein removed for bypass History of carpal tunnel surgery of right wrist History of colonoscopy History of appendectomy History of tonsillectomy and adenoidectomy History of bilateral cataract extraction History of cardiac cath x1--1997 @ [facility]--no stents, had CABG History of implantable cardioverter-defibrillator (ICD) placement inserted 01/2007, replaced 02/2016, upgraded to BiV ICD on 09/19/20--[employer] S/P triple vessel bypass @ [facility] 1997 Family History Other No family history of adverse response to anesthesia Social History Smoking Status: Former smoker Tobacco Type: Cigarettes Second Hand Exposure: Yes ( smokes); Do You Dip or Chew Tobacco: Yes (1 can/4-5 days; advised); Hx Alcohol Use: Yes Alcohol type: beer Alcohol Intake Frequency: Monthly or Less Hx Substance Use: No Preferred Language: Monegasque Communication Ability: Effective Visual Impairment: Limited Hearing Ability: Hard of Hearing Clinic Lead Required: No Beliefs That Will Affect Care: None marital status: Current Living Situation: Spouse Feels Safe at Home: Yes Diet: regular Assistive Devices: Cane and Walker Review of Systems 2 Review of Systems: All systems reviewed & are unremarkable except as noted in HPI & below Physical Exam 2 Constitutional: well developed, + acute distress, + frail appearing, cooperative and comfortable Eyes: EOM intact bilaterally ENMT: Mouth: + dry oral mucous membranes and + poor dentition Respiratory: normal respiratory effort Auscultation: + diminished lung sounds and + crackles (diffuse); no rhonchi and no wheezes Cardiovascular: Rate/Rhythm: regular rate and regular rhythm Extremities: + edema (2+) Gastrointestinal (Abdomen): Inspection/Auscultation: + abdomen distended and normal bowel sounds; no abdominal edema Percussion/Palpation: abdomen soft; abdomen nontender and no ascites Musculoskeletal: Extremities: strength 5/5 throughout Skin: no rashes, warm and dry Trauma: + evidence of skin trauma (ulcerations, superficial skin tears BLE) Neurologic: kelley, fluent speech, no tremor Psychiatric: Orientation: alert and oriented x 3 Speech: normal rate/rhythm/volume of speech Results & Data Vital Signs (Past 12 Hours) Vital Signs Temp Pulse Pulse Resp BP Pulse Ox O2 Del Method 02/24/25 09:20 70 02/24/25 07:59 Room Air 02/24/25 07:06 36.6 C 70 18 124/67 93 Room Air 02/24/25 07:01 71 02/24/25 02:51 36.2 C L 75 18 119/66 91 Room Air 02/24/25 02:39 70 02/24/25 00:15 Room Air 02/23/25 22:25 36.3 C L 73 18 111/68 92 Room Air Laboratory Results 02/24/25 06:00 02/24/25 06:00 Diagnostic Findings Transthoracic echocardiogram Ejection fraction 20 to 25% with severe left ventricular dilatation and severe LV systolic function reduction. Anterior posterior and inferoseptal nielson with thinning and scarring CTA 1. No pulmonary emboli identified. 2. Cardiomegaly with prior median sternotomy and CABG. Pericardial calcifications likely represents sequela of chronic pericarditis. 3. Pulmonary arterial hypertension. 4. Mild interstitial pulmonary edema with trace pleural effusions. 5. 2.8 cm dependent groundglass density of the left upper lobe is likely atelectatic. Attention on follow-up recommended in order to exclude a groundglass nodule. 6. Prior granulomatous disease.
--- NOTE | 2025-02-24 10:35 | Gastroenterology Progress Note ---
Date of Service February 24, 2025 Assessment & Plan (1) Anemia: Plan: There does not appear to be any active GI bleeding at this time. patient is feeling well from a GI standpoint. pleuritic chest pain is somewhat improved today. - continue to monitor hgb/hct, transfuse as needed. - will stop PPI drip and transition to protonix 40mg orally daily. Admission and Anticipated Discharge Date Admission Date: February 23, 2025 Supervising Physician Co-Signing Physician Notes I personally saw and examined the patient. I have reviewed the chart and agree with the documentation provided by the RECORDS MANAGEMENT MANAGER including discussion about the assessment, treatment and plan. Briefly, doing much better today. His pleuritic chest pain is gone. He has had no bleeding while here. He can follow-up with us outpatient. GI will sign off. Subjective Both patient and nursing deny any active GI bleeding. no melena or brbpr noted. hgb 9.3 (previously 9.8) He feels that chest pain is somewhat better today. rest of GI ros are unremarkable. Review of Systems Review of Systems: All systems reviewed & are unremarkable except as noted in HPI & below Physical Exam Constitutional: WD/WN, vitals as above Respiratory: normal respiratory effort, lungs clear to auscultation Cardiovascular: Rate/Rhythm: regular rate and regular rhythm Gastrointestinal (Abdomen): normal bowel sounds, soft, nontender, no hepatosplenomegaly Psychiatric: Orientation: alert and oriented x 3 Affect: euthymic affect Results & Data Results & Data Vital Signs (Past 12 Hours) Vital Signs Temp Pulse Pulse Resp BP Pulse Ox O2 Del Method 02/24/25 09:20 70 02/24/25 07:59 Room Air 02/24/25 07:06 97.9 F 70 18 124/67 93 Room Air 02/24/25 07:01 71 02/24/25 02:51 97.2 F L 75 18 119/66 91 Room Air 02/24/25 02:39 70 02/24/25 00:15 Room Air Coding Level of Care Code 04999 SUB INP/OBS CARE 2/35MIN Diagnoses Anemia, unspecified type D64.9 Anemia type: unspecified type (1) Anemia Anemia type: unspecified type Qualified Code(s): D64.9 - Anemia, unspecified
[2025-02-24] MEDS: PANTOprazole 40 MG TAB PO SCH (11:13)
--- NOTE | 2025-02-24 11:41 | Cardiology Progress Note ---
Date of Service February 24, 2025 Assessment & Plan (1) Pleuritic chest pain: (2) Acute on chronic heart failure with reduced ejection fraction (HFrEF, <= 40%) and combined systolic and diastolic dysfunction: (3) Cellulitis, leg: (4) Anemia: Plan 79-year-old male admitted with pleuritic chest discomfort/pleurisy and acute heart failure with reduced ejection fraction. No evidence of pericardial effusion/pericarditis per echocardiogram. Symptoms markedly improved with corticosteroids. Recommendations: * Prednisone 40 mg x 1 now. * Prednisone taper starting tomorrow, 20 mg daily x 2 days followed by 10 mg daily x 2 days. * Colchicine 0.6 mg x 1 now. Will not continue daily colchicine due to potential interaction with amiodarone. * Continue IV Lasix. * Monitor fluid balance, daily weight, GFR, and electrolytes. * Warfarin on hold due to anemia, concerns regarding possible GI bleed. * Continue midodrine for blood pressure support. * Antibiotics per internal medicine. Bang Mcginnis DO, [facility] Admission and Anticipated Discharge Date Admission Date: February 23, 2025 Subjective 79-year-old male seen and examined at the bedside. Feeling much better after dose of intravenous Solu-Medrol/02/14. Notes mild pleuritic discomfort with deep inspiration and cough. Severe positional discomfort has significantly improved. No significant pericardial effusion on echocardiogram. Moderate diuresis noted. Edema improving. Telemetry reveals AV paced rhythm. Review of Systems Review of Systems: All systems reviewed & are unremarkable except as noted in Subjective Physical Exam Constitutional: well nourished and + ill appearing; no acute distress Respiratory: no respiratory distress and no labored breathing Auscultation: + rales (Bilateral bases); no rhonchi and no wheezes Cardiovascular: Rate/Rhythm: regular rate and regular rhythm Heart Sounds: normal S1, normal S2 and + murmur Vessels: + JVD Extremities: + edema (1+ edema, + ulcers, +erythema) Gastrointestinal (Abdomen): Inspection/Auscultation: abdomen normal to inspection and normal bowel sounds; abdomen not distended Percussion/Palpation: abdomen soft; abdomen nontender, no guarding and abdomen not rigid Neurologic: CN's II-XI intact bilaterally and moves all extremities; no focal motor deficits Results & Data Vital Signs (Past 12 Hours) Vital Signs Temp Pulse Pulse Resp BP Pulse Ox O2 Del Method 02/24/25 11:10 36.6 C 70 18 118/70 94 Room Air 02/24/25 09:20 70 02/24/25 07:59 Room Air 02/24/25 07:06 36.6 C 70 18 124/67 93 Room Air 02/24/25 07:01 71 02/24/25 02:51 36.2 C L 75 18 119/66 91 Room Air 02/24/25 02:39 70 02/24/25 00:15 Room Air Laboratory Results Cardiac Enzymes 02/23/25 02/23/25 02/23/25 Range/Units 12:04 14:05 23:01 AST (13-39) U/L Troponin I High Sens 12.8 13.1 13.0 (0-20) pg/ml 02/24/25 Range/Units 06:00 AST 32 (13-39) U/L Troponin I High Sens (0-20) pg/ml CBC 02/23/25 02/23/25 02/24/25 Range/Units 14:05 20:14 06:00 WBC 6.41 (4.8-10.8) K/ul RBC 3.33 L (4.70-6.10) M/uL Hgb 9.2 L 9.8 L 9.3 L (14.0-18.0) g/dl Hct 29.3 L 31.1 L 28.9 L (42.0-52.0) % Plt Count 228 (130-400) K/uL Comprehensive Metabolic Panel 02/24/25 Range/Units 06:00 Sodium 138 (136-145) mmol/L Potassium 4.4 (3.5-5.1) mmol/L Chloride 104 (98-107) mmol/L Carbon Dioxide 26 (21-32) mmol/L BUN 28 H (6-23) mg/dl Creatinine 1.44 H (0.6-1.4) mg/dl Glucose 227 H (70-99(Fasting)) mg/dl Calcium 8.7 (8.6-10.3) mg/dl AST 32 (13-39) U/L ALT 28 (7-52) U/L Alkaline Phosphatase 85 (34-104) U/L Total Protein 7.1 (6.0-8.3) gm/dl Albumin 3.6 (3.4-5.0) gm/dl Intake and Output 02/23/25 02/24/25 02/24/25 22:59 06:59 14:59 Intake Total 929 / 1599 500 / 1599 57.667 / 57.667 Output Total 600 / 1751 551 / 1751 Balance 329 / -152 -51 / -152 57.667 / 57.667 Intake: IV 149 / 519 200 / 519 57.667 / 57.667 PANTOprazole 40 mg In Dextrose 149 / 349 200 / 349 57.667 / 57.667 5% Mini-B 100 ml @ 8 MG/HR 20 mls/hr IV Q5H [facility] Rx#:[id number] Oral 780 / 1080 300 / 1080 Output: Urine 600 / 1750 550 / 1750 # Bowel Movements Other: Weight 84 kg 84 kg Weight Measurement Method Built in Bedscale Built in Bedscale (3) Cellulitis, leg Laterality: unspecified laterality Qualified Code(s): L03.119 - Cellulitis of unspecified part of limb (4) Anemia Anemia type: unspecified type Qualified Code(s): D64.9 - Anemia, unspecified
[2025-02-24] MEDS: predniSONE 20 MG TAB PO STA (12:22)
[2025-02-24] MEDS: COLCHICINE 0.6 MG TAB PO ONE (12:22)
[2025-02-24] MEDS: SERTRALINE HCL 50 MG TABLET PO SCH (12:23)
--- NOTE | 2025-02-24 14:52 | Pharmacy Report ---
Pharmacy Glycemic Short Note 2 - Date of Service February 24, 2025 - Glycemic Short BSG Results (Last 24 hours): 02/23/25 02/23/25 02/24/25 15:31 20:03 06:00 Glucose 227 H POC Glucose 134 H 175 H 02/24/25 02/24/25 07:05 11:10 Glucose POC Glucose 215 H 244 H OUTPATIENT ANTIDIABETIC REGIMEN: * Tresiba 7 units SC qAM * Ozempic 4 mg SC weekly (Fridays) * Metformin 1 g PO BIDM * Dapagliflozin (unclear if patient is currently taking and unable to verify w/ pharmacy records) HbA1c: 6.9% (01/20/25) ASSESSMENT: 02/24 * Patient received total 9 units of bolus insulin yesterday and no basal. * Fasting BSG today was elevated at 215 mg/dl. Basal insulin 5 units started this morning. * Novolog parameters initiated with stress of 2 yesterday was tightened slightly with breakfast. * Pre-lunch BSG was again elevated and Prednisone 40 mg added. Additional 5 units of basal ordered at noon. Novolog carb ratio tightened further. 02/23 * MS is a 79 year old male who presents to ED today for left-sided chest pain, admitted w/ acute decompensated HFrEF and ischemic cardiomyopathy * Concern for GI bleed, pantoprazole gtt initiated (mixed in dextrose) * Will use weight-based stress of 2 for initial dosing of Novolog * Conservative basal scale for now while NPO * Ceftriaxone ordered empirically PLAN FOR INPATIENT GLYCEMIC CONTROL: * Hold outpatient oral diabetes medications * Basal insulin * Lantus 10 units SQ today, reassess tomorrow. * Bolus insulin * NovoLog per scale ACHS or Q6hrs while NPO * Goal Range: Low 120 mg/dL - High 150 mg/dL * Correction Factor: 30 mg/dL/unit * Nutritional / Prandial insulin per carb ratio of 1 unit per 8 grams CHO consumed
[2025-02-24 14:55] LABS: Appearance Urine Clear (Clear); Bilirubin Urine Negative (Negative); Blood Urine Negative (Negative); Color Urine Yellow; Glucose Urine UA 3+ (Negative); Ketones Urine Negative (Negative); Leukocyte Esterase Urine Negative (Negative); Nitrite Urine Negative (Negative); Protein Urine Negative (Negative); Specific Gravity Urine 1.029 (1.000-1.030); Urobilinogen Urine Negative (Negative)
[2025-02-24] MEDS: FUROSEMIDE 40 MG/4 ML VIAL IV SCH (16:45)
[2025-02-24] MEDS: LEVALBUTEROL 1.25 MG/3 ML NEB NEB STA (17:02)
--- NOTE | 2025-02-24 17:18 | XRay Report ---
Clinical History: Shortness of breath Technique: A frontal view of the chest was obtained Comparison is made to the prior examination dated 01/19/2025 Findings: There is suspected mild pulmonary edema. The heart is mildly enlarged. No definite right pleural effusion or pneumothorax is seen. There is a suspected small left pleural effusion Sternal wires are present. There is a left chest wall pacemaker device Impression: 1. New mild pulmonary edema 2. Small left pleural effusion 3. Unchanged mild cardiomegaly ACT 112: Positive. There are findings on this exam that require communication between the performing entity and the patient following Patient Test Result Information Act ([place] ACT 112) guidelines. Electronically signed by Amado Delgado 02-24-2025 5:18 PM
--- NOTE | 2025-02-24 18:04 | Hospitalist Progress Note ---
Date of Service February 24, 2025 Assessment & Plan (1) Chest pain: (2) Acute decompensated heart failure: (3) Ischemic cardiomyopathy: (4) Biventricular ICD (implantable cardioverter-defibrillator) in place: (5) Ventricular tachycardia: (6) GI bleed: (7) ROMAN (acute kidney injury): (8) Diabetes mellitus, type 2: (9) Hypertension: (10) PAD (peripheral artery disease): (11) Dyslipidemia: (12) Sleep apnea: Plan per admitting service notes with addendum: This is a 79yo M with a PMH of ischemic cardiomyopathy with EF 20%, atypical atrial flutter status post DCCV status post ablation in March 2021 on amiodarone and coumadin, VT/VF s/p ICD, CAD s/p CABG in 1997, history of LV apical thrombus on coumadin since , sinus bradycardia, DM II, HTN, BPH, mood disorder and other medical problems listed below who presents with left sided chest pain. Acute decompensated HFrEF Ischemic cardiomyopathy Last echocardiogram in June 2024 with EF of 20% Bilateral lower extremity 2+ edema in lower extremity on presentation CTA chest without pulmonary emboli, CM with pericardial calcifications likely representing sequela of chronic pericarditis, mild interstitial pulm edema with trace pleural effusions Given 40mg IV Lasix in ED Strict I&Os, low sodium diet, daily weights Repeat 2D echo ordered Routine cardiology consult 02/24 EF 20-25% mild mod MR no effusion continue Lasix 40mg IV BID monitor crea appreciate Cardio and Nephro recs wean off O2 Atypical CP Reproducible on exam Initial trop WNL, no EKG changes, pain did not improve with nitro given en route ? MSK vs Pericarditis-related as above Trend troponins for completeness, complex medical history Cards consulted as above 02/24 Prednisone taper started Colchicine 1 dose given chest pain mostly resolved History of recurrent V. tach, atypical atrial flutter Pacer summary report ordered Last EP cardiology note reviewed from December 06, 2024; started on Midodrine 2.5mg TID given recurrent syncope Given missed AM dose of amiodarone and Toprol, continue digoxin MWF Monitor lytes and replace as needed Hold Coumadin for now, INR 1.6 02/24 continue Amiodarone, Metoprolol, Digoxin coumadin on hold for below GI bleed Hgb 9.2 (decreased from hgb 13.3 1 month ago) Heme + stool on rectal exam Hold coumadin H&H Q6H Routine GI consult Protonix bolus and drip NPO except meds for now 4/4 Hg stable GI bleed unlikely if Hg remains stable, resume coumadin tomorrow check anemia panel tomorrow ROMAN Cr 1.57 (baseline 1.1) in setting of suspected GI bleed Given 40mg IV lasix for volume overload in ED Consult nephro for further recs given complex hx as above 02/24 crea 1.2--> 1.5-> 1.4 Chronic BLE wounds Open wounds in setting of BLE edema, treating with vasoline at home Wound care consult Wound culture ordered, empiric Rocephin for now 02/24 wound culture: pending improving continue IV Ceftri Type 2 diabetes mellitus Hold home agents - patient unclear what insulin he is taking SSI while in-patient Glycemic consult placed BSG AC HS Hyperlipidemiacontinue Lipitor CAD status post CABG -continue Lipitor, hold aspirin for now given GI bleed OSAcontinue CPAP HS Mood disorderrcontinue sertraline DVT Ppx: holding coumadin as above Code status: DNR/DNI PCP: Trip Mcginnis Dispo: pending, PT/OT Admission and Anticipated Discharge Date Admission Date: February 23, 2025 Subjective ff up for CHF exacerbation, acute renal failure, chest pain, etc seen resting in bed, on 2 L not in distress states he felt SOB after walking to the bathroom no chest pain, dizziness, nausea no leg pain, fever/chills no other symptoms Review of Systems Review of Systems: all noted and negative except for above Physical Exam Physical Exam: General- oriented x 3, not in distress, speaks in sentences with no effort or accessory muscle use Eyes- anicteric Neck- no JVD Lungs- mild rales at the bases no wheezing Heart- normal rate, regular rhythm; no murmurs Abdomen- normal bowel sounds, nondistended, soft, nontender Extremities- mild pretibial edema, no calf tenderness (+) small superficial open wounds anteri or Lower legs no warmth, tenderness Neuro- alert, oriented x 3; no gross focal neurologic deficits Skin- warm & dry Results & Data Results & Data Vital Signs (Past 12 Hours) Vital Signs Temp Pulse Pulse Resp BP Pulse Ox O2 Del Method 02/24/25 17:03 18 95 Nasal Cannula 02/24/25 15:59 36.3 C L 70 18 130/73 92 Room Air 02/24/25 14:19 70 02/24/25 11:10 36.6 C 70 18 118/70 94 Room Air 02/24/25 09:20 70 02/24/25 07:59 Room Air 02/24/25 07:06 36.6 C 70 18 124/67 93 Room Air 02/24/25 07:01 71 O2 Flow Rate 02/24/25 17:03 2 02/24/25 15:59 02/24/25 14:19 02/24/25 11:10 02/24/25 09:20 02/24/25 07:59 02/24/25 07:06 02/24/25 07:01 all noted and reviewed including below (1) Chest pain Chest pain type: unspecified Qualified Code(s): R07.9 - Chest pain, unspecified
[2025-02-25 06:14] LABS: Hematocrit (blood only) 27.3 % (42.0-52.0); Hemoglobin 8.7 g/dl (14.0-18.0); Mean Corpuscular Hemoglobin 27.4 pg (25.0-34.0); Mean Corpuscular Hgb Conc 31.9 g/dL (32.0-36.0); Mean Corpuscular Volume 86.1 fL (80.0-100.0); Mean Platelet Volume 9.6 fL (9.4-12.4); Platelet Count 260 K/uL (130-400); RDW Standard Deviation 49.9 fL (36.4-46.3); Red Blood Count 3.17 M/uL (4.70-6.10); White Blood Count 12.42 K/ul (4.8-10.8)
[2025-02-25 06:26] LABS: BUN Creatinine Ratio 23.5 (10-20); Calcium 8.6 mg/dl (8.6-10.3); Creatinine Clr Calc Pharmacy 54.2 ml/min; Potassium 4.8 mmol/L (3.5-5.1)
[2025-02-25 06:33] LABS: INR 1.4 (0.9-1.1); Prothrombin Time 14.8 Seconds (9.0-12.0)
[2025-02-25 06:45] LABS: Ferritin 33.9 ng/ml (8-388)
[2025-02-25 06:52] LABS: Folate (Folic Acid),Ser orPlas 10.66 ng/ml (>5.38)
[2025-02-25] MEDS: LANTUS PER UNIT CHARGE SQ SCH (08:29)
[2025-02-25] MEDS: predniSONE 20 MG TAB PO SCH (08:31)
--- NOTE | 2025-02-25 12:37 | Cardiology Progress Note ---
Date of Service February 25, 2025 Assessment & Plan (1) Pleuritic chest pain: (2) Acute on chronic heart failure with reduced ejection fraction (HFrEF, <= 40%) and combined systolic and diastolic dysfunction: (3) Cellulitis, leg: (4) Anemia: Plan 79-year-old male admitted with pleuritic chest discomfort/pleurisy and acute heart failure with reduced ejection fraction. No evidence of pericardial effusion/pericarditis per echocardiogram. Symptoms markedly improved with corticosteroids. - feeling well today on exam - continue prednisone taper, 20 mg daily x 2 days followed by 10 mg daily x 2 days - Will not continue daily colchicine due to potential interaction with amioda winston - diuretics per nephrology - strict I and Os, daily weights - continue midodrine for blood pressure support - warfarin on hold due to anemia, concern for possible GI bleed - continue to monitor on telemetry Case discussed with attending physician, further recommendations per Dr. Alonso. I spent a total of 25 minutes on the date of service in preparation, delivery, and documentation of the care provided to this patient excluding any time spent in the performance of separately billed services. This visit was a split-shared visit with the substantial portion of the decision making performed by the supervising etl consultant/billing provider. Admission and Anticipated Discharge Date Admission Date: February 23, 2025 Supervising Physician Co-Signing Physician Notes I spent a total of 25 minutes on the date of service in preparation, delivery, and documentation of the care provided to this patient, excluding any time spent in the performance of separately billed services. I have personally performed a history and physical examination on the patient. I have reviewed the advance practitioner's documentation, and I agree with, and take responsibility for the plan of care. 79-year-old male with past medical history of CAD status post CABG in 1997, ischemic cardiomyopathy status post ICD with upgrade to BiV ICD in 2019, chronic systolic heart failure, atypical atrial flutter and history of LV apical thrombus presented with symptoms of worsening shortness of breath with exertion and pleuritic chest pain. His pleuritic chest pain has improved with prednisone. He was started on IV diuresis for decompensated systolic heart failure. His Coumadin has been held due to acute on chronic blood loss anemia. Concern for possible GI bleed but patient denies any abnormal bleeding. GI on board. Resume Coumadin once okay from GI standpoint. Patient's renal function has improved with IV diuresis. Most likely a component of cardiorenal syndrome. Continue diuretics per nephrology recommendation. Patient's pleuritic chest pain has improved. Prednisone is has not had any recurrence of chest pain. His ECG showed AV dual paced rhythm. Echocardiogram done showed LVEF of 20 to 25%, normal RV size and systolic function with mild to moderate mitral regurgitation and no pericardial effusion. Once okay from GI standpoint resume Coumadin. Continue diuretics per nephrology recommendation. Patient can follow-up with cardiology as an outpatient. Subjective 79 year old male was seen today in cardiology follow up. States he feels much better. Has not had any recurrent chest pain since IV steroids. Denies shortness of breath, lightheadedness. Review of Systems Review of Systems: CONSTITUTIONAL: No change in weight, No weakness, No fatigue and No fevers, No sweats or chills. PULMONARY: No cough, sputum, or hemoptysis, No wheezing, No shortness of breath and No recent change in breathing. CARDIOVASCULAR: No chest pain, No dyspnea on exertion, No edema, No palpitations and No syncope. GASTROINTESTINAL: No abdominal pain, No change in bowel habits, No significant heartburn, No nausea, No vomiting, No diarrhea, No constipation, No blood in stools or black tarry stools. No dysphagia. HEMATOLOGIC: No abnormal bleeding and No bruising. NEUROLOGICAL: Normal balance, No headaches and No weakness. Physical Exam Physical Exam: General: No acute distress. A+Ox3. Ill appearing. HEENT: Normocephalic. Atraumatic. PERRL. EOMI. Conjunctiva and sclera clear. NECK: No carotid bruits. No JVD. Carotid upstrokes are brisk. Heart: RRR. S1 and S2 noted. No murmur. No rubs or gallops. PMI non displaced. Lungs: Clear to auscultation. No wheezes. No rhonchi. No rales. Abdomen: Normal bowel sounds. Soft. Nontender. No masses or organomegaly. No abdominal bruits. Extremities: No edema. No clubbing or cyanosis. Pulses: radial=2/4, posterior tibial=2/4, dorsalis pedis = 2/4. NEURO: No focal deficits. PSYCH: Appropriate affect and insight. Results & Data Vital Signs (Past 12 Hours) Vital Signs Temp Pulse Pulse Resp BP Pulse Ox O2 Del Method 02/25/25 11:06 36.7 C 70 21 115/63 96 Nasal Cannula 02/25/25 07:04 36.7 C 70 18 116/68 94 Room Air 02/25/25 07:00 70 02/25/25 03:31 36.7 C 75 18 121/58 L 98 Nasal Cannula O2 Flow Rate 02/25/25 11:06 02/25/25 07:04 02/25/25 07:00 02/25/25 03:31 3 Laboratory Results Coagulation 02/25/25 Range/Units 05:22 PT 14.8 H (9.0-12.0) Seconds CBC 02/25/25 Range/Units 05:22 WBC 12.42 H (4.8-10.8) K/ul RBC 3.17 L (4.70-6.10) M/uL Hgb 8.7 L (14.0-18.0) g/dl Hct 27.3 L (42.0-52.0) % Plt Count 260 (130-400) K/uL Comprehensive Metabolic Panel 02/25/25 Range/Units 05:22 Sodium 136 (136-145) mmol/L Potassium 4.8 (3.5-5.1) mmol/L Chloride 103 (98-107) mmol/L Carbon Dioxide 28 (21-32) mmol/L BUN 28 H (6-23) mg/dl Creatinine 1.19 (0.6-1.4) mg/dl Glucose 233 H (70-99(Fasting)) mg/dl Calcium 8.6 (8.6-10.3) mg/dl Intake and Output 02/24/25 02/25/25 02/25/25 22:59 06:59 14:59 Intake Total 120 / 467.667 Output Total 300 / 500 200 / 500 Balance -180 / -32.333 -200 / -32.333 Intake: Oral 120 / 360 Output: Urine 300 / 500 200 / 500 Other: Weight 84.5 kg Weight Measurement Method Built in [facility] Diagnostic Findings Telemetry with paced rhythm (3) Cellulitis, leg Laterality: unspecified laterality Qualified Code(s): L03.119 - Cellulitis of unspecified part of limb (4) Anemia Anemia type: unspecified type Qualified Code(s): D64.9 - Anemia, unspecified
--- NOTE | 2025-02-25 12:50 | Nephrology Progress Note ---
Date of Service February 25, 2025 Assessment & Plan (1) ROMAN (acute kidney injury): Plan: improving stage 2 ROMAN in the setting of cardiorenal syndrome, w/ labile baseline creatinine approximately 0.9-1.2 from 2022-spring 2024 in [facility] records. complicated by obligate IV contrast at admission. -continue lasix 40 mg IV bid -daily bmp -continue to hold metformin and dapagliflozin > look to resume DAPA when feasible/early -reasonable for now to continue midodrine -note currently on no standing K and none needed > monitor for need -no fluid limit for now but once out of range of SAM concern, consider one -given addition of midodrine interval and fall w/in past 6 wks, ordered orthostatic VS for best awareness/understanding of pt needs; may need to do repeatedly (2) Acute decompensated heart failure: Plan: -diuretics as above -daily STANDING weight to continue -as above FR Admission and Anticipated Discharge Date Admission Date: February 23, 2025 Subjective seen for acute kidney injury. he feels better. No shortness of breath. He has bilateral leg wounds which are chronic. creatinine down to 1.2 Review of Systems 2 Review of Systems: All other systems were reviewed and negative except as noted in HPI Physical Exam 2 Physical Exam: General exam: Appears comfortable, no acute distress HEENT: Pupils are equal and reactive to light Neck: No JVD, neck is supple trachea is midline Respiratory system: Clear breath sounds bilaterally. Gastrointestinal: Abdomen is soft, non distended, non tender, bowel sounds are present CVS: Regular rate and rhythm. No murmurs, rubs or gallops Musculoskeletal: No joint or muscle tenderness Extremities: Non tender, no edema, peripheral pulses are present Neuro: Oriented, no tremors, no focal neurological deficits Skin: Derick leg wounds Results & Data Vital Signs (Past 12 Hours) Vital Signs Temp Pulse Pulse Resp BP Pulse Ox O2 Del Method 02/25/25 11:06 36.7 C 70 21 115/63 96 Nasal Cannula 02/25/25 07:04 36.7 C 70 18 116/68 94 Room Air 02/25/25 07:00 70 02/25/25 03:31 36.7 C 75 18 121/58 L 98 Nasal Cannula O2 Flow Rate 02/25/25 11:06 02/25/25 07:04 02/25/25 07:00 02/25/25 03:31 3 Laboratory Results 02/25/25 05:22 02/25/25 05:22 WBC 12.42 H RBC 3.17 L MCV 86.1 MCH 27.4 MCHC 31.9 L RDW Std Deviation 49.9 H RDW Coeff of Ade 16.0 H Plt Count 260 MPV 9.6
--- NOTE | 2025-02-25 17:56 | Hospitalist Progress Note ---
Date of Service February 25, 2025 Assessment & Plan (1) Chest pain: (2) Acute decompensated heart failure: (3) Ischemic cardiomyopathy: (4) Biventricular ICD (implantable cardioverter-defibrillator) in place: (5) Ventricular tachycardia: (6) GI bleed: (7) ROMAN (acute kidney injury): (8) Diabetes mellitus, type 2: (9) Hypertension: (10) PAD (peripheral artery disease): (11) Dyslipidemia: (12) Sleep apnea: Plan per admitting service notes with addendum: This is a 79yo M with a PMH of ischemic cardiomyopathy with EF 20%, atypical atrial flutter status post DCCV status post ablation in March 2021 on amiodarone and coumadin, VT/VF s/p ICD, CAD s/p CABG in 1997, history of LV apical thrombus on coumadin since , sinus bradycardia, DM II, HTN, BPH, mood disorder and other medical problems listed below who presents with left sided chest pain. Acute decompensated HFrEF Ischemic cardiomyopathy Last echocardiogram in June 2024 with EF of 20% Bilateral lower extremity 2+ edema in lower extremity on presentation CTA chest without pulmonary emboli, CM with pericardial calcifications likely representing sequela of chronic pericarditis, mild interstitial pulm edema with trace pleural effusions Given 40mg IV Lasix in ED Strict I&Os, low sodium diet, daily weights Repeat 2D echo ordered Routine cardiology consult / EF 20-25% mild mod MR no effusion continue Lasix 40mg IV BID monitor crea appreciate Cardio and Nephro recs wean off O2 4/5 Improving Weaned off oxygen supplement Continue Lasix 40 mg IV twice daily Creatinine improved to 1.1 Monitor closely Atypical CP Reproducible on exam Initial trop WNL, no EKG changes, pain did not improve with nitro given en route ? MSK vs Pericarditis-related as above Trend troponins for completeness, complex medical history Cards consulted as above / Prednisone taper started Colchicine 1 dose given chest pain mostly resolved 4/5 Continue prednisone 20 mg p.o. daily History of recurrent V. tach, atypical atrial flutter Pacer summary report ordered Last EP cardiology note reviewed from December 06, 2024; started on Midodrine 2.5mg TID given recurrent syncope Given missed AM dose of amiodarone and Toprol, continue digoxin MWF Monitor lytes and replace as needed Hold Coumadin for now, INR 1.6 02/24 continue Amiodarone, Metoprolol, Digoxin coumadin on hold for below 02/25 Continue amiodarone, metoprolol, digoxin Hold Coumadin GI bleed Acute blood loss anemia Iron deficiency anemia Hgb 9.2 (decreased from hgb 13.3 1 month ago) Heme + stool on rectal exam Hold coumadin H&H Q6H Routine GI consult Protonix bolus and drip NPO except meds for now / Hg stable GI bleed unlikely if Hg remains stable, resume coumadin tomorrow check anemia panel tomorrow 02/25 Hemoglobin slightly decreased to 8.7 No overt signs of GI bleed Hold Coumadin for now Iron level 23 Start p.o. iron ROMAN Cr 1.57 (baseline 1.1) in setting of suspected GI bleed Given 40mg IV lasix for volume overload in ED Consult nephro for further recs given complex hx as above 02/25 crea 1.2--> 1.5-> 1.4--> 1.1 Chronic BLE wounds Open wounds in setting of BLE edema, treating with vasoline at home Wound care consult Wound culture ordered, empiric Rocephin for now 02/24 wound culture: pending improving continue IV Ceftri 02/25 Wound culture: Negative Change ceftriaxone to cefazolin plus doxycycline Nasal MRSA swab ordered Monitor closely Type 2 diabetes mellitus Hold home agents - patient unclear what insulin he is taking SSI while in-patient Glycemic consult placed BSG AC HS Hyperlipidemiacontinue Lipitor CAD status post CABG -continue Lipitor, hold aspirin for now given GI bleed OSAcontinue CPAP HS Mood disorderrcontinue sertraline DVT Ppx: holding coumadin as above Code status: DNR/DNI PCP: Trip Mcginnis Dispo: pending, PT/OT Admission and Anticipated Discharge Date Admission Date: February 23, 2025 Subjective Follow-up for CHF exacerbation, lower extremity cellulitis, etc. Seen resting in bedside chair, on room air Good spirits States he feels better today than yesterday Breathing is okay today No chest pain, palpitations Denies fevers or chills, lower extremity pain No other new symptoms Review of Systems Review of Systems: all noted and negative except for above Physical Exam Physical Exam: General- oriented x 3, not in distress, speaks in sentences with no effort or accessory muscle use Eyes- anicteric Neck- no JVD Lungs- Mild rales at the bases, no wheezing Heart- normal rate, regular rhythm; no murmurs Abdomen- normal bowel sounds, nondistended, soft, nontender Extremities- Mild lower extremity edema, with small superficial wounds, with surrounding mild erythema, no warmth or tenderness Neuro- alert, oriented x 3; no gross focal neurologic deficits Skin- warm & dry Results & Data Results & Data Vital Signs (Past 12 Hours) Vital Signs Temp Pulse Pulse Resp BP Pulse Ox Pulse Ox 02/25/25 14:57 36.4 C L 73 18 117/70 95 02/25/25 13:00 95 02/25/25 11:06 36.7 C 70 21 115/63 96 02/25/25 07:04 36.7 C 70 18 116/68 94 02/25/25 07:00 70 O2 Del Method 02/25/25 14:57 Room Air 02/25/25 13:00 02/25/25 11:06 Nasal Cannula 02/25/25 07:04 Room Air 02/25/25 07:00 all noted and reviewed including below (1) Chest pain Chest pain type: unspecified Qualified Code(s): R07.9 - Chest pain, unspecified
[2025-02-25] MEDS: ADVANCED PROBIOTIC 625 MG CAPSULE PO SCH (17:58)
[2025-02-25] MEDS ORDERED: ceFAZolin 1000MG 1,000 MG/7.5 ML SYR IV SCH (18:00)
[2025-02-25] MEDS: ceFAZolin 2000MG 2,000 MG/15 ML SYR IV SCH (19:35)
[2025-02-25] MEDS: DOXYCYCLINE HYCLATE 100 MG CAP PO SCH (19:46)
[2025-02-26] MEDS: ALBUT/IPRATROP 3MG/0.5MG NEB 3 ML VIAL NEB STA (04:10)
[2025-02-26] MEDS: FUROSEMIDE 40 MG/4 ML VIAL IV SCH (04:15)
[2025-02-26 07:26] LABS: Calcium 8.6 mg/dl (8.6-10.3); Creatinine Clr Calc Pharmacy 51.1 ml/min; Potassium 4.3 mmol/L (3.5-5.1)
[2025-02-26 07:28] LABS: INR 1.2 (0.9-1.1); Prothrombin Time 12.9 Seconds (9.0-12.0)
[2025-02-26] MEDS: FERROUS SULFATE 325 MG TAB PO SCH (08:30)
[2025-02-26 09:11] LABS: Basophils # (auto) 0.05 K/uL (0.00-0.20); Basophils % (auto) 0.4 %; Eosinophils # (auto) 0.03 K/uL (0.00-0.50); Eosinophils % (auto) 0.2 %; Hematocrit (blood only) 29.4 % (42.0-52.0); Hemoglobin 9.4 g/dl (14.0-18.0); Immature Granulocytes # (auto) 0.04 K/uL (0.01-0.20); Immature Granulocytes % (auto) 0.3 %; Lymphocytes # (auto) 0.97 K/uL (1.20-3.40); Lymphocytes % (auto) 7.3 %; Mean Corpuscular Hemoglobin 27.8 pg (25.0-34.0); Mean Platelet Volume 9.7 fL (9.4-12.4); Monocytes # (auto) 0.93 K/uL (0.11-0.59); Neutrophils # (auto) 11.23 K/uL (1.40-6.50); Neutrophils % (auto) 84.8 %; Platelet Count 356 K/uL (130-400); Red Blood Count 3.38 M/uL (4.70-6.10); White Blood Count 13.25 K/ul (4.8-10.8)
--- NOTE | 2025-02-26 09:40 | Nephrology Progress Note ---
Date of Service February 26, 2025 Assessment & Plan (1) ROMAN (acute kidney injury): Plan: improving stage 2 ROMAN in the setting of cardiorenal syndrome, w/ labile baseline creatinine approximately 0.9-1.2 from 2022-spring 2024 in [facility] records. complicated by obligate IV contrast at admission. -continue lasix 40 mg IV bid -daily bmp -continue to hold metformin and dapagliflozin > look to resume DAPA outpatient -continue midodrine (2) Acute decompensated heart failure: Plan: -diuretics as above -daily STANDING weight to continue -Consider stopping prednisone given increased risk for GI bleed, fluid retention and resolved chest pain Admission and Anticipated Discharge Date Admission Date: February 23, 2025 Subjective Seen for ROMAN and CHF. he reports an episode of SOB this morning but better now. Legs chronically swollen with wounds but stable. no chest pain Review of Systems 2 Review of Systems: All other systems were reviewed and negative except as noted in HPI Physical Exam 2 Physical Exam: General exam: Appears comfortable, no acute distress HEENT: Pupils are equal and reactive to light Neck: No JVD, neck is supple trachea is midline Respiratory system: Clear breath sounds bilaterally. Gastrointestinal: Abdomen is soft, non distended, non tender, bowel sounds are present CVS: Regular rate and rhythm. No murmurs, rubs or gallops Musculoskeletal: No joint or muscle tenderness Extremities: Non tender, no edema, peripheral pulses are present Neuro: Oriented, no tremors, no focal neurological deficits Skin: Derick leg wounds Results & Data Vital Signs (Past 12 Hours) Vital Signs Temp Pulse Pulse Resp BP BP Pulse Ox 02/26/25 07:53 37.1 C 90 18 116/55 L 92 02/26/25 07:00 70 02/26/25 04:15 94 02/26/25 03:08 37.2 C 75 16 127/72 95 02/25/25 23:02 70 02/25/25 22:57 36.7 C 68 18 110/62 93 O2 Del Method 02/26/25 07:53 Room Air 02/26/25 07:00 02/26/25 04:15 Nasal Cannula 02/26/25 03:08 Room Air 02/25/25 23:02 02/25/25 22:57 Room Air Laboratory Results 02/26/25 06:19 02/26/25 06:18 WBC 13.25 H RBC 3.38 L MCV 87.0 MCH 27.8 MCHC 32.0 RDW Std Deviation 51.0 H RDW Coeff of Ade 16.0 H Plt Count 356 MPV 9.7
--- NOTE | 2025-02-26 12:07 | Hospitalist Progress Note ---
Date of Service February 26, 2025 Assessment & Plan (1) Chest pain: (2) Acute decompensated heart failure: (3) Ischemic cardiomyopathy: (4) Biventricular ICD (implantable cardioverter-defibrillator) in place: (5) Ventricular tachycardia: (6) GI bleed: (7) ROMAN (acute kidney injury): (8) Diabetes mellitus, type 2: (9) Hypertension: (10) PAD (peripheral artery disease): (11) Dyslipidemia: (12) Sleep apnea: Plan per admitting service notes with addendum: This is a 79yo M with a PMH of ischemic cardiomyopathy with EF 20%, atypical atrial flutter status post DCCV status post ablation in March 2021 on amiodarone and coumadin, VT/VF s/p ICD, CAD s/p CABG in 1997, history of LV apical thrombus on coumadin since , sinus bradycardia, DM II, HTN, BPH, mood disorder and other medical problems listed below who presents with left sided chest pain. Acute decompensated HFrEF Ischemic cardiomyopathy Last echocardiogram in June 2024 with EF of 20% Bilateral lower extremity 2+ edema in lower extremity on presentation CTA chest without pulmonary emboli, CM with pericardial calcifications likely representing sequela of chronic pericarditis, mild interstitial pulm edema with trace pleural effusions Given 40mg IV Lasix in ED Strict I&Os, low sodium diet, daily weights Repeat 2D echo ordered Routine cardiology consult 02/24 EF 20-25% mild mod MR no effusion continue Lasix 40mg IV BID monitor crea appreciate Cardio and Nephro recs wean off O2 / Improving Weaned off oxygen supplement Continue Lasix 40 mg IV twice daily Creatinine improved to 1.1 Monitor closely 02/26 crea 1.2 continue Lasix 40mg IV q12h monitor crea Atypical CP Reproducible on exam Initial trop WNL, no EKG changes, pain did not improve with nitro given en route ? MSK vs Pericarditis-related as above Trend troponins for completeness, complex medical history Cards consulted as above 02/24 Prednisone taper started Colchicine 1 dose given chest pain mostly resolved 02/26 Continue prednisone 20 mg p.o. daily History of recurrent V. tach, atypical atrial flutter Pacer summary report ordered Last EP cardiology note reviewed from December 06, 2024; started on Midodrine 2.5mg TID given recurrent syncope Given missed AM dose of amiodarone and Toprol, continue digoxin MWF Monitor lytes and replace as needed Hold Coumadin for now, INR 1.6 / continue Amiodarone, Metoprolol, Digoxin coumadin on hold for below /6 Continue amiodarone, metoprolol, digoxin Hold Coumadin GI bleed Acute blood loss anemia Iron deficiency anemia Hgb 9.2 (decreased from hgb 13.3 1 month ago) Iron 23 Heme + stool on rectal exam Hold coumadin H&H Q6H Routine GI consult Protonix bolus and drip NPO except meds for now 4/ Hg stable GI bleed unlikely if Hg remains stable, resume coumadin tomorrow check anemia panel tomorrow 5 Hemoglobin slightly decreased to 8.7 No overt signs of GI bleed Hold Coumadin for now Iron level 23 Start p.o. iron /6 Hg stable at 9.4 resume coumadin ROMAN Cr 1.57 (baseline 1.1) in setting of suspected GI bleed Given 40mg IV lasix for volume overload in ED Consult nephro for further recs given complex hx as above 02/25 crea 1.2--> 1.5-> 1.4--> 1.1 Chronic BLE wounds Open wounds in setting of BLE edema, treating with vasoline at home Wound care consult Wound culture ordered, empiric Rocephin for now 02/24 wound culture: pending improving continue IV Ceftri 02/25 Wound culture: Negative Change ceftriaxone to cefazolin plus doxycycline Nasal MRSA swab ordered Monitor closely 02/26 healing well nasal MRSA negative continue Cefazolin d/c Doxycycline Type 2 diabetes mellitus Hold home agents - patient unclear what insulin he is taking SSI while in-patient Glycemic consult placed BSG AC HS Hyperlipidemiacontinue Lipitor CAD status post CABG -continue Lipitor, continue ASA OSAcontinue CPAP HS Mood disorderrcontinue sertraline DVT Ppx: continue coumadin Code status: DNR/DNI PCP: Trip Mcginnis Dispo: pending, PT/OT Admission and Anticipated Discharge Date Admission Date: February 23, 2025 Subjective Follow-up for CHF exacerbation, lower extremity cellulitis, etc. Seen resting in bed, comfortable, on 2 L of O2 via scale In good spirits States he feels okay overall Breathing is improving No chest pain palpitations dizziness No leg pain No other new symptoms Review of Systems Review of Systems: all noted and negative except for above Physical Exam Physical Exam: General- oriented x 3, not in distress, speaks in sentences with no effort or accessory muscle use Eyes- anicteric Neck- no JVD Lungs- Mild rales bilateral bases Heart- normal rate, regular rhythm; no murmurs Abdomen- normal bowel sounds, nondistended, soft, nontender Extremities- Grade 1 lower extremity edema with scabbed excoriations, healing well, very minimal surrounding erythema, no warmth or tenderness Neuro- alert, oriented x 3; no gross focal neurologic deficits Skin- warm & dry Results & Data Results & Data Vital Signs (Past 12 Hours) Vital Signs Temp Pulse Pulse Resp BP Pulse Ox O2 Del Method 02/26/25 11:03 36.2 C L 73 18 103/50 L 98 Nasal Cannula 02/26/25 07:53 37.1 C 90 18 116/55 L 92 Room Air 02/26/25 07:00 70 02/26/25 04:15 94 Nasal Cannula 02/26/25 03:08 37.2 C 75 16 127/72 95 Room Air all noted and reviewed including below (1) Chest pain Chest pain type: unspecified Qualified Code(s): R07.9 - Chest pain, unspecified
[2025-02-26] MEDS: WARFARIN SOD 5 MG TAB PO SCH (17:08)
[2025-02-27 07:20] VITALS: RESP 18
[2025-02-27 07:38] LABS: Basophils # (auto) 0.04 K/uL (0.00-0.20); Basophils % (auto) 0.5 %; Eosinophils # (auto) 0.17 K/uL (0.00-0.50); Eosinophils % (auto) 2.3 %; Hematocrit (blood only) 26.7 % (42.0-52.0); Hemoglobin 8.5 g/dl (14.0-18.0); Immature Granulocytes # (auto) 0.02 K/uL (0.01-0.20); Immature Granulocytes % (auto) 0.3 %; Lymphocytes # (auto) 1.44 K/uL (1.20-3.40); Lymphocytes % (auto) 19.2 %; Mean Corpuscular Hemoglobin 27.2 pg (25.0-34.0); Mean Corpuscular Hgb Conc 31.8 g/dL (32.0-36.0); Mean Corpuscular Volume 85.6 fL (80.0-100.0); Mean Platelet Volume 9.2 fL (9.4-12.4); Monocytes # (auto) 0.63 K/uL (0.11-0.59); Monocytes % (auto) 8.4 %; Neutrophils % (auto) 69.3 %; Platelet Count 246 K/uL (130-400); RDW Coefficient of Variation 16.1 % (11.5-14.5); RDW Standard Deviation 50.2 fL (36.4-46.3); Red Blood Count 3.12 M/uL (4.70-6.10)
[2025-02-27 08:06] LABS: INR 1.2 (0.9-1.1); Prothrombin Time 12.4 Seconds (9.0-12.0)
[2025-02-27 08:11] LABS: BUN Creatinine Ratio 25.6 (10-20); Calcium 8.6 mg/dl (8.6-10.3); Creatinine Clr Calc Pharmacy 51.2 ml/min; Potassium 4.4 mmol/L (3.5-5.1)
--- NOTE | 2025-02-27 13:37 | Pharmacy Report ---
Pharmacy Glycemic Short Note 2 - Date of Service February 27, 2025 - Glycemic Short BSG Results (Last 24 hours): 02/26/25 02/26/25 02/27/25 16:11 20:19 07:13 Glucose 113 H POC Glucose 162 H 155 H 02/27/25 02/27/25 07:18 11:35 Glucose POC Glucose 141 H 177 H OUTPATIENT ANTIDIABETIC REGIMEN: * Tresiba 7 units SC qAM * Ozempic 4 mg SC weekly (Fridays) * Metformin 1 g PO BIDM * Dapagliflozin (unclear if patient is currently taking and unable to verify w/ pharmacy records) HbA1c: 6.9% (01/20/25) ASSESSMENT: 02/27/25: * Blood sugars have been much improved over past 48 hours * Last dose of prednisone 20 mg PO daily is today * Will continue with current glycemic regimen for today and anticipate loosing tomorrow once steroids discontinued 02/24 * Patient received total 9 units of bolus insulin yesterday and no basal. * Fasting BSG today was elevated at 215 mg/dl. Basal insulin 5 units started this morning. * Novolog parameters initiated with stress of 2 yesterday was tightened slightly with breakfast. * Pre-lunch BSG was again elevated and Prednisone 40 mg added. Additional 5 units of basal ordered at noon. Novolog carb ratio tightened further. 02/23 * MS is a 79 year old male who presents to ED today for left-sided chest pain, admitted w/ acute decompensated HFrEF and ischemic cardiomyopathy * Concern for GI bleed, pantoprazole gtt initiated (mixed in dextrose) * Will use weight-based stress of 2 for initial dosing of Novolog * Conservative basal scale for now while NPO * Ceftriaxone ordered empirically PLAN FOR INPATIENT GLYCEMIC CONTROL: * Hold outpatient oral diabetes medications * Basal insulin * Lantus 15 units SC daily * Reassess in AM * Bolus insulin * NovoLog per scale ACHS or Q6hrs while NPO * Goal Range: Low 120 mg/dL - High 150 mg/dL * Correction Factor: 35 mg/dL/unit * Nutritional / Prandial insulin per carb ratio of 1 unit per 7 grams CHO consumed
--- NOTE | 2025-02-27 16:49 | Hospitalist Progress Note ---
Date of Service February 27, 2025 Assessment & Plan (1) Chest pain: (2) Acute decompensated heart failure: (3) Ischemic cardiomyopathy: (4) Biventricular ICD (implantable cardioverter-defibrillator) in place: (5) Ventricular tachycardia: (6) GI bleed: (7) ROMAN (acute kidney injury): (8) Diabetes mellitus, type 2: (9) Hypertension: (10) PAD (peripheral artery disease): (11) Dyslipidemia: (12) Sleep apnea: Plan per admitting service notes with addendum: This is a 79yo M with a PMH of ischemic cardiomyopathy with EF 20%, atypical atrial flutter status post DCCV status post ablation in March 2021 on amiodarone and coumadin, VT/VF s/p ICD, CAD s/p CABG in 1997, history of LV apical thrombus on coumadin since , sinus bradycardia, DM II, HTN, BPH, mood disorder and other medical problems listed below who presents with left sided chest pain. Acute decompensated HFrEF Ischemic cardiomyopathy Last echocardiogram in June 2024 with EF of 20% Bilateral lower extremity 2+ edema in lower extremity on presentation CTA chest without pulmonary emboli, CM with pericardial calcifications likely representing sequela of chronic pericarditis, mild interstitial pulm edema with trace pleural effusions Given 40mg IV Lasix in ED Strict I&Os, low sodium diet, daily weights Repeat 2D echo ordered Routine cardiology consult 02/24 EF 20-25% mild mod MR no effusion continue Lasix 40mg IV BID monitor crea appreciate Cardio and Nephro recs wean off O2 02/25 Improving Weaned off oxygen supplement Continue Lasix 40 mg IV twice daily Creatinine improved to 1.1 Monitor closely 02/26 crea 1.2 continue Lasix 40mg IV q12h monitor crea 02/27 creatinine 1.2 Continue Lasix 40 m IV every 12 Likely transition to Lasix p.o. tomorrow Atypical CP Reproducible on exam Initial trop WNL, no EKG changes, pain did not improve with nitro given en route ? MSK vs Pericarditis-related as above Trend troponins for completeness, complex medical history Cards consulted as above 02/24 Prednisone taper started Colchicine 1 dose given chest pain mostly resolved 02/26 Continue prednisone 20 mg p.o. daily 02/27 Transition to prednisone 10 mg p.o. daily History of recurrent V. tach, atypical atrial flutter Pacer summary report ordered Last EP cardiology note reviewed from December 06, 2024; started on Midodrine 2.5mg TID given recurrent syncope Given missed AM dose of amiodarone and Toprol, continue digoxin MWF Monitor lytes and replace as needed Hold Coumadin for now, INR 1.6 4/ continue Amiodarone, Metoprolol, Digoxin coumadin on hold for below 4/6 Continue amiodarone, metoprolol, digoxin Hold Coumadin GI bleed Acute blood loss anemia Iron deficiency anemia Hgb 9.2 (decreased from hgb 13.3 1 month ago) Iron 23 Heme + stool on rectal exam Hold coumadin H&H Q6H Routine GI consult Protonix bolus and drip NPO except meds for now 4/ Hg stable GI bleed unlikely if Hg remains stable, resume coumadin tomorrow check anemia panel tomorrow 5 Hemoglobin slightly decreased to 8.7 No overt signs of GI bleed Hold Coumadin for now Iron level 23 Start p.o. iron 4/6 Hg stable at 9.4 resume coumadin ROMAN Cr 1.57 (baseline 1.1) in setting of suspected GI bleed Given 40mg IV lasix for volume overload in ED Consult nephro for further recs given complex hx as above 02/25 crea 1.2--> 1.5-> 1.4--> 1.1 Chronic BLE wounds Open wounds in setting of BLE edema, treating with vasoline at home Wound care consult Wound culture ordered, empiric Rocephin for now 02/24 wound culture: pending improving continue IV Ceftri 02/25 Wound culture: Negative Change ceftriaxone to cefazolin plus doxycycline Nasal MRSA swab ordered Monitor closely /6 healing well nasal MRSA negative continue Cefazolin d/c Doxycycline Type 2 diabetes mellitus Hold home agents - patient unclear what insulin he is taking SSI while in-patient Glycemic consult placed BSG AC HS Hyperlipidemiacontinue Lipitor CAD status post CABG -continue Lipitor, continue ASA OSAcontinue CPAP HS Mood disorderrcontinue sertraline DVT Ppx: continue coumadin Code status: DNR/DNI PCP: Trip Mcginnis Dispo: pending, PT/OT Admission and Anticipated Discharge Date Admission Date: February 23, 2025 Subjective Seen resting in bed, comfortable, not in distress On room air States he feels he is improving daily Breathing is better No leg pain No other new symptoms Review of Systems Review of Systems: all noted and negative except for above Physical Exam Physical Exam: General- oriented x 3, not in distress, speaks in sentences with no effort or accessory muscle use Eyes- anicteric Neck- no JVD Lungs- mild rales at the bases, no wheezing Heart- normal rate, regular rhythm; no murmurs Abdomen- normal bowel sounds, nondistended, soft, nontender Extremities- mild lower extremity edema bilaterally, with healing small wounds No erythema/warmth/tenderness Neuro- alert, oriented x 3; no gross focal neurologic deficits Skin- warm & dry Results & Data Results & Data Vital Signs (Past 12 Hours) Vital Signs Temp Pulse Pulse Resp BP Pulse Ox O2 Del Method 02/27/25 16:10 36.5 C 70 18 120/63 99 Room Air 02/27/25 13:00 02/27/25 11:14 36.6 C 69 18 110/59 L 97 Room Air 02/27/25 07:20 36.3 C L 71 18 113/60 97 Room Air 02/27/25 07:00 70 O2 Del Method 02/27/25 16:10 02/27/25 13:00 Room Air 02/27/25 11:14 02/27/25 07:20 02/27/25 07:00 all noted and reviewed including below (1) Chest pain Chest pain type: unspecified Qualified Code(s): R07.9 - Chest pain, unspecified
[2025-02-28 07:08] VITALS: TEMP 97.7
[2025-02-28 07:32] LABS: Basophils # (auto) 0.05 K/uL (0.00-0.20); Basophils % (auto) 0.6 %; Eosinophils # (auto) 0.18 K/uL (0.00-0.50); Eosinophils % (auto) 2.1 %; Hematocrit (blood only) 28.5 % (42.0-52.0); Hemoglobin 9.1 g/dl (14.0-18.0); Immature Granulocytes # (auto) 0.03 K/uL (0.01-0.20); Immature Granulocytes % (auto) 0.4 %; Lymphocytes # (auto) 1.64 K/uL (1.20-3.40); Lymphocytes % (auto) 19.5 %; Mean Corpuscular Hemoglobin 27.3 pg (25.0-34.0); Mean Corpuscular Hgb Conc 31.9 g/dL (32.0-36.0); Mean Corpuscular Volume 85.6 fL (80.0-100.0); Mean Platelet Volume 9.2 fL (9.4-12.4); Monocytes # (auto) 0.75 K/uL (0.11-0.59); Monocytes % (auto) 8.9 %; Neutrophils # (auto) 5.75 K/uL (1.40-6.50); Neutrophils % (auto) 68.5 %; Platelet Count 296 K/uL (130-400); RDW Coefficient of Variation 16.1 % (11.5-14.5); RDW Standard Deviation 49.9 fL (36.4-46.3); Red Blood Count 3.33 M/uL (4.70-6.10)
[2025-02-28 07:44] LABS: BUN Creatinine Ratio 23.4 (10-20); Calcium 8.9 mg/dl (8.6-10.3); Creatinine Clr Calc Pharmacy 51.9 ml/min; Potassium 4.5 mmol/L (3.5-5.1)
[2025-02-28] MEDS: LANTUS PER UNIT CHARGE SQ SCH (08:24)
[2025-02-28 08:26] LABS: INR 1.1 (0.9-1.1); Prothrombin Time 12.3 Seconds (9.0-12.0)
[2025-02-28] MEDS: predniSONE 10 MG TABLET PO SCH (08:27)
--- NOTE | 2025-02-28 14:02 | Discharge Summary ---
Discharge Summary Date of Service February 28, 2025 Principal Dx & Hospital Course #1 = Principal Diagnosis (1) Chest pain: (2) Acute decompensated heart failure: (3) Ischemic cardiomyopathy: (4) Biventricular ICD (implantable cardioverter-defibrillator) in place: (5) Ventricular tachycardia: (6) GI bleed: (7) ROMAN (acute kidney injury): (8) Diabetes mellitus, type 2: (9) Hypertension: (10) PAD (peripheral artery disease): (11) Dyslipidemia: (12) Sleep apnea: Plan per admitting service notes with addendum: This is a 79yo M with a PMH of ischemic cardiomyopathy with EF 20%, atypical atrial flutter status post DCCV status post ablation in March 2021 on amiodarone and coumadin, VT/VF s/p ICD, CAD s/p CABG in 1997, history of LV apical thrombus on coumadin since , sinus bradycardia, DM II, HTN, BPH, mood disorder and other medical problems listed below who presents with left sided chest pain. Acute decompensated HFrEF Ischemic cardiomyopathy Last echocardiogram in June 2024 with EF of 20% Bilateral lower extremity 2+ edema in lower extremity on presentation CTA chest without pulmonary emboli, CM with pericardial calcifications likely representing sequela of chronic pericarditis, mild interstitial pulm edema with trace pleural effusions Given 40mg IV Lasix in ED Strict I&Os, low sodium diet, daily weights Repeat 2D echo ordered Routine cardiology consult 02/24 EF 20-25% mild mod MR no effusion continue Lasix 40mg IV BID monitor crea appreciate Cardio and Nephro recs wean off O2 02/25 Improving Weaned off oxygen supplement Continue Lasix 40 mg IV twice daily Creatinine improved to 1.1 Monitor closely 02/26 crea 1.2 continue Lasix 40mg IV q12h monitor crea 02/27 creatinine 1.2 Continue Lasix 40 m IV every 12 Likely transition to Lasix p.o. tomorrow Atypical CP Reproducible on exam Initial trop WNL, no EKG changes, pain did not improve with nitro given en route ? MSK vs Pericarditis-related as above Trend troponins for completeness, complex medical history Cards consulted as above 02/24 Prednisone taper started Colchicine 1 dose given chest pain mostly resolved 02/26 Continue prednisone 20 mg p.o. daily 02/27 Transition to prednisone 10 mg p.o. daily History of recurrent V. tach, atypical atrial flutter Pacer summary report ordered Last EP cardiology note reviewed from December 06, 2024; started on Midodrine 2.5mg TID given recurrent syncope Given missed AM dose of amiodarone and Toprol, continue digoxin MWF Monitor lytes and replace as needed Hold Coumadin for now, INR 1.6 4/ continue Amiodarone, Metoprolol, Digoxin coumadin on hold for below 6 Continue amiodarone, metoprolol, digoxin Hold Coumadin GI bleed Acute blood loss anemia Iron deficiency anemia Hgb 9.2 (decreased from hgb 13.3 1 month ago) Iron 23 Heme + stool on rectal exam Hold coumadin H&H Q6H Routine GI consult Protonix bolus and drip NPO except meds for now 4/ Hg stable GI bleed unlikely if Hg remains stable, resume coumadin tomorrow check anemia panel tomorrow /5 Hemoglobin slightly decreased to 8.7 No overt signs of GI bleed Hold Coumadin for now Iron level 23 Start p.o. iron 4/6 Hg stable at 9.4 resume coumadin ROMAN Cr 1.57 (baseline 1.1) in setting of suspected GI bleed Given 40mg IV lasix for volume overload in ED Consult nephro for further recs given complex hx as above 02/25 crea 1.2--> 1.5-> 1.4--> 1.1 Chronic BLE wounds Open wounds in setting of BLE edema, treating with vasoline at home Wound care consult Wound culture ordered, empiric Rocephin for now 02/24 wound culture: pending improving continue IV Ceftri 02/25 Wound culture: Negative Change ceftriaxone to cefazolin plus doxycycline Nasal MRSA swab ordered Monitor closely 02/26 healing well nasal MRSA negative continue Cefazolin d/c Doxycycline Type 2 diabetes mellitus Hold home agents - patient unclear what insulin he is taking SSI while in-patient Glycemic consult placed BSG AC HS Hyperlipidemiacontinue Lipitor CAD status post CABG -continue Lipitor, continue ASA OSAcontinue CPAP HS Mood disorderrcontinue sertraline DVT Ppx: continue coumadin Code status: DNR/DNI PCP: Trip Mcginnis Dispo: pending, PT/OT Admission HPI Per Admitting Provider This is a 79yo M with a PMH of ischemic cardiomyopathy with EF 20%, atypical a trial flutter status post DCCV status post ablation in March 2021 on amiodarone and coumadin, VT/VF s/p ICD, CAD s/p CABG in 1997, history of LV apical thrombus on coumadin since , sinus bradycardia, DM II, HTN, BPH, mood disorder and other medical problems listed below who presents with left sided chest pain. Patient woke up with chest pain around 3 AM and pain has been sharp, constant and exacerbated with deep breaths. Received full dose aspirin and nitro x 2 en route to the hospital that did not improve pain. The 2 mg IV morphine given in ED helped. No associated SOB. Notable lower extremity swelling with open wounds with serous drainage. Has been treating with vasoline and wrapping at home, where he lives with . Denies any F/C, lightheadedness, N/V, abd pain, dysuria, diarrhea or constipation. Bowel movements have been normal for him. Denies any BRBPR or black stool. Was admitted to [facility] 01/19-01/21 for stroke like symptoms/syncope without acute findings. Since discharge home, patient had another syncopal episode with unchanged EKG. PCP discussed with EP floorman Dr. Cortez who recommended starting Midodrine 2.5mg TID. States he has felt less lightheaded since starting midodrine. Did not take any home medications today. Last echo was in June 2024 which showed EF of 20%; unchanged prior to before. Updated Medication List Medication Instructions Recorded Confirmed Type aspirin 81 mg tablet,delayed 81 mg PO QAM 08/10/23 02/23/25 History release atorvastatin 80 mg tablet 80 mg PO HS 08/10/23 02/23/25 History digoxin 125 mcg (0.125 mg) tablet 125 mcg PO 3XWK 08/10/23 02/23/25 History finasteride 5 mg tablet 5 mg PO HS 08/10/23 02/23/25 History furosemide 40 mg tablet 40 mg PO BID 08/10/23 02/23/25 History insulin degludec 100 unit/mL (3 7 unit subcut QAM 08/10/23 02/23/25 History mL) subcutaneous pen (Tresiba FlexTouch U-100 insulin) metformin 1,000 mg tablet 1,000 mg PO BID 08/10/23 02/23/25 History semaglutide 1 mg/dose (4 mg/3 mL) 4 mg subcut Q7D 08/10/23 02/23/25 History subcutaneous pen injector (Ozempic) sertraline 50 mg tablet 75 mg PO DAILY 08/10/23 02/23/25 History vit C 250 mg-vit E 90 mg-zinc 40 1 tab PO BID ##0 08/10/23 02/23/25 History mg-copper 1 ss-vejcdz-bhlhby capsule (PreserVision AREDS-2) warfarin 10 mg tablet See Rx Instructions .Route .COMPLEX 08/10/23 02/23/25 History amiodarone 200 mg tablet 200 mg PO BID #60 tabs 08/12/23 02/23/25 Rx dapagliflozin propanediol 10 mg 0 mg PO DAILY 02/23/25 02/23/25 History tablet (Farxiga) metoprolol succinate 25 mg 25 mg PO DAILY 02/23/25 02/23/25 History tablet,extended release 24 hr midodrine 2.5 mg tablet 2.5 mg PO TID 02/23/25 02/23/25 History potassium chloride 20 mEq 20 meq PO DAILY 02/23/25 02/23/25 History tablet,extended release(part/cryst) L.acidop,casei,lactis,rham-B.lact,geoff 1 cap PO DAILY 14 days #14 caps 02/28/25 Rx 625 mg (10 billion cell) capsule (Advanced Probiotic) cephalexin 500 mg capsule 500 mg PO QID 3 days #12 caps 02/28/25 Rx doxycycline hyclate 100 mg capsule 100 mg PO BID 3 days #6 caps 02/28/25 Rx ferrous sulfate 325 mg (65 mg 325 mg PO BIDM 30 days #60 tabs 02/28/25 Rx iron) tablet,delayed release pantoprazole 40 mg tablet,delayed 40 mg PO QAM 30 days #30 tabs 02/28/25 Rx release prednisone 10 mg tablet 10 mg PO DAILY 1 day #1 tab 02/28/25 Rx Hospital Stay Data Consultations 02/23/25 10:30 ED Decision to Admit Stat 02/23/25 10:53 Consult Gastroenterology Routine 02/23/25 11:42 Consult Cardiology Routine 02/23/25 11:47 Consult Nephrology Routine Diagnostic Imagining Performed 04/03/25 08:29 CT angio chest PE protocol Stat Pending Results Patient Have Any Pending Studies at Discharge: No Discharge Instructions Given to Patient (Per Discharging Provider) PLEASE REFER TO YOUR NEW MEDICATION LIST AND FOLLOW INSTRUCTIONS CAREFULLY. YOUR NEW MEDICATIONS INCLUDE: prednisone-steroid for chest pain Lasix-diuretic/water pill for CHF-to prevent fluid buildup in the lungs and legs Ferrous sulfate-iron supplement Cephalexin, doxycycline-antibiotic for lower extremity infection Probiotics-to prevent diarrhea, to be taken for at least 2 weeks Protonix-antacid to prevent stomach bleed, ulcer PLEASE CALL YOUR PRIMARY CARE PHYSICIAN OR RETURN TO THE ER IF WITH WORSENING OF SYMPTOMS, INCLUDING Leg swelling, shortness of breath, chest pain, Fevers or chills, leg redness/warmth/tenderness, Diarrhea, etc. FOLLOW UP WITH PRIMARY CARE PHYSICIAN OUTLINED ABOVE. Follow-up with cardiology clinic in 2 weeks.
[2025-02-28 14:07] VITALS: BP 110/62; PULSE 73; O2SAT 99
== END 2025-02-28 14:19 | disposition home or self-care (01) | DRG 291 ==
LOC: ED 07:33 → EDINP 10:50 → SUATTDRO 10:50 → 2S 13:44